=== PATIENT | male | born 1935 | race Caucasian/White ===

== ENCOUNTER → 2016-12-20 | Outpatient (CLI) | payer MEDICARE, OTHER ==
[~2016-12-20] MED LIST: ASPI81TA21 PO; CHEW500C2 PO; GLIP5TAB8 PO; LISI2.5T3 PO; METF500T PO; OMEGCAP9 PO; VITATAB73 PO
--- NOTE | 2016-12-20 13:45 | REP ---
ABDOMEN FLAT AND UPRIGHT, PA CHEST, THREE VIEWS: HISTORY: Abdominal pain. Air is present in small and large intestine. Several air fluid levels are present. There are no dilated loops of intestine. There is no pneumoperitoneum. Calcifications are present in the right upper quadrant likely representing cholelithiasis. An L4-5 laminectomy defect is present. The lungs are clear. IMPRESSION: Nonspecific bowel gas pattern. Signed by Korey De Paz MD 12/20/2016 01:49 P
== END ==
LOC: M LRY 11:24
PROVIDERS: ATTEND Family Medicine
DX: R10.9 Unspecified abdominal pain (principal); E11.9 Type 2 diabetes mellitus without complications
CPT/HCPCS: 74022; 80053; 83036; G0463

== ENCOUNTER → 2016-12-20 | Outpatient (REF) | payer MEDICARE, OTHER ==
[2016-12-20 16:47] LABS: ALBUMIN 3.6 GM/DL (3.2-5.2); ALBUMIN/GLOBULIN RATIO 1.06 (1.00-1.93); ALKALINE PHOSPHATASE 49 U/L (45-117); ALT/SGPT 29 U/L (12-78); ANION GAP 7 MEQ/L (8-16); AST/SGOT 18 U/L (15-37); BILIRUBIN,TOTAL 0.6 MG/DL (0.2-1.0); BLOOD UREA NITROGEN 20 MG/DL (7-18); CALCIUM LEVEL 8.5 MG/DL (8.8-10.2); CARBON DIOXIDE LEVEL 28 MEQ/L (21-32); CHLORIDE LEVEL 107 MEQ/L (98-107); CREATININE FOR GFR 1.16 MG/DL (0.70-1.30); GLOMERULAR FILTRATION RATE > 60.0 (>35); GLUCOSE, FASTING 82 MG/DL (83-110); POTASSIUM SERUM 4.4 MEQ/L (3.5-5.1); SODIUM LEVEL 142 MEQ/L (136-145)
== END ==
LOC: M SFHCLERA 11:12
PROVIDERS: ATTEND Family Medicine
DX: R10.9 Unspecified abdominal pain (principal); E11.9 Type 2 diabetes mellitus without complications

== ENCOUNTER → 2017-07-21 | Outpatient (REF) | payer MEDICARE, OTHER ==
[~2017-07-21] MED LIST changes: -METF500T PO; +METF500T13 PO
[2017-07-21 20:52] LABS: CALCIUM LEVEL 8.8 MG/DL (8.8-10.2); CREATININE FOR GFR 1.28 MG/DL (0.70-1.30); GLOMERULAR FILTRATION RATE 57.4 (>35); POTASSIUM SERUM 4.6 MEQ/L (3.5-5.1)
== END ==
LOC: M SFHCLERA 15:03
PROVIDERS: ATTEND Family Medicine
DX: E11.9 Type 2 diabetes mellitus without complications (principal)

== ENCOUNTER → 2017-07-21 | Outpatient (CLI) | payer MEDICARE, OTHER ==
--- NOTE | 2017-07-21 16:44 | REP ---
LEFT WRIST SERIES: Four views of the left wrist are performed. There is no acute fracture or dislocation. There is mild radiocarpal joint space narrowing with subchondral sclerosis. There are mild vascular calcifications. IMPRESSION: Mild degenerative changes. No fracture or dislocation. Signed by Sarath Joseph MD 07/22/2017 01:57 P
== END ==
LOC: M LRY 15:15
PROVIDERS: ATTEND Family Medicine
DX: M19.032 Primary osteoarthritis, left wrist (principal); E11.9 Type 2 diabetes mellitus without complications; I10 Essential (primary) hypertension
CPT/HCPCS: 73110; 80048; 82043; 83036; G0463

== ENCOUNTER → 2017-08-19 | Outpatient (REF) | payer MEDICARE, OTHER | LOC: M SMT 16:55 | PROVIDERS: ATTEND Nurse Practitioner Women's Health | DX: R31.0 Gross hematuria (principal) | CPT/HCPCS: 81001; 87086; 88108; G0463 ==

== ENCOUNTER → 2017-09-16 | Outpatient (REF) | payer MEDICARE, OTHER ==
[2017-09-16 19:07] LABS: MEAN CORPUSCULAR HEMOGLOBIN 31.4 pg (27.0-33.0); MEAN CORPUSCULAR HGB CONC 32.1 g/dl (32.0-36.5); MEAN CORPUSCULAR VOLUME 97.7 fl (80.0-96.0); PLATELET COUNT, AUTOMATED 255 10^3/uL (150-450); WHITE BLOOD COUNT 7.8 10^3/uL (4.0-10.0)
[2017-09-16 19:15] LABS: ANION GAP 8 MEQ/L (8-16); BLOOD UREA NITROGEN 19 MG/DL (7-18); CARBON DIOXIDE LEVEL 24 MEQ/L (21-32); CHLORIDE LEVEL 107 MEQ/L (98-107); CREATININE FOR GFR 1.09 MG/DL (0.70-1.30); GLOMERULAR FILTRATION RATE > 60.0 (>35); GLUCOSE, FASTING 94 MG/DL (83-110); POTASSIUM SERUM 4.4 MEQ/L (3.5-5.1); SODIUM LEVEL 139 MEQ/L (136-145)
[2017-09-16 19:18] LABS: INR 0.98
== END ==
LOC: M SFHCLERA 15:29
PROVIDERS: ATTEND Family Medicine
DX: Z01.818 Encounter for other preprocedural examination (principal); N20.0 Calculus of kidney; E11.9 Type 2 diabetes mellitus without complications; I10 Essential (primary) hypertension; Z79.82 Long term (current) use of aspirin; Z79.84 Long term (current) use of oral hypoglycemic drugs; Z79.899 Other long term (current) drug therapy

== ENCOUNTER → 2017-09-16 | Outpatient (CLI) | payer MEDICARE, OTHER ==
[~2017-09-16] MED LIST changes: +LOPR1TAB6 PO; +PERCOCET PO
--- NOTE | 2017-09-16 16:48 | REP ---
Chest two views HISTORY: Preop clearance Comparison: 07/08/2016 The lungs are clear. The heart is normal in size. The pulmonary vasculature is normal in appearance. Degenerative change is present in the thoracic spine. IMPRESSION: No acute disease. Signed by Korey De Paz MD 09/16/2017 04:39 P
== END ==
LOC: M LRY 15:35
PROVIDERS: ATTEND Family Medicine
DX: Z01.818 Encounter for other preprocedural examination (principal); N20.0 Calculus of kidney; E11.9 Type 2 diabetes mellitus without complications; I10 Essential (primary) hypertension; Z79.84 Long term (current) use of oral hypoglycemic drugs; Z79.82 Long term (current) use of aspirin; Z79.899 Other long term (current) drug therapy
CPT/HCPCS: 71020; 80048; 81001; 83036; 85027; 85610; 85730; 87086; G0463

== ENCOUNTER 2017-09-26 10:35 | Day surgery (SDC) | payer MEDICARE, OTHER ==
[~2017-09-26] VITALS: Ht 177.8 cm; Wt 93.9 kg
[~2017-09-26 10:35] MED LIST changes: -LOPR1TAB6 PO; -PERCOCET PO
[2017-09-26] MEDS ORDERED: LR 1,000 ML IV ONE (10:45)
[2017-09-26] MEDS ORDERED: MIDAZOLAM INJ 2 MG/2 ML VIAL (J2250) As Ordered ONE (16:03)
[2017-09-26] MEDS ORDERED: LIDOCAINE 2% INJ 100 MG/5 ML SDV (FOR ANES.) As Ordered ONE (16:03)
[2017-09-26] MEDS ORDERED: ROCURONIUM BROMIDE 50 MG/5 ML VIAL As Ordered ONE ×2 (16:03→18:02)
[2017-09-26] MEDS ORDERED: PROPOFOL 200 MG/20 ML VIAL As Ordered ONE ×2 (16:03→19:08)
[2017-09-26] MEDS ORDERED: fentaNYL 100 MCG/2 ML INJECTION (J3010) As Ordered ONE ×3 (16:04→19:08)
[2017-09-26] MEDS ORDERED: CONRAY-60 60% 50ML VIAL (Q9961) As Ordered ONE (16:17)
--- NOTE | 2017-09-26 16:56 | ECGEPIP ---
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 Electronically Signed On 09-26-2017 16:56:32 EST by Mo Mcnair
[2017-09-26] MEDS ORDERED: GLYCOPYRROLATE INJ 0.2 MG/ML 2 ML VIAL As Ordered ONE (17:00)
[2017-09-26] MEDS ORDERED: NEOSTIGMINE 10 MG/10 ML VIAL (J2710) As Ordered ONE (17:00)
[2017-09-26] MEDS ORDERED: ONDANSETRON 4MG/2ML VIAL (J2405) As Ordered ONE (17:00)
[2017-09-26] MEDS ORDERED: PHENYLephrine HCL 500 MCG/5 ML (100MCG/ML) SYRINGE (J2370) As Ordered ONE (17:39)
[2017-09-26] MEDS ORDERED: ePHEDrine SULFATE 25 MG/5 ML(5MG/ML) SYRINGE As Ordered ONE (17:39)
[2017-09-26] MEDS ORDERED: fentaNYL 100 MCG/2 ML INJECTION (J3010) IV PRN (20:00)
[2017-09-26] MEDS ORDERED: LR 1,000 ML IV SCH (20:00)
[2017-09-26] MEDS ORDERED: PERCOCET 5MG/325MG TAB PO PRN ×2 (20:00)
[2017-09-26] MEDS ORDERED: ONDANSETRON 4MG/2ML VIAL (J2405) IV PRN (20:00)
[2017-09-26 22:00] VITALS: BP 166/76
--- NOTE | 2017-09-27 12:05 | REP ---
Fluoroscopy time utilized for the procedure: 37 seconds. Three spot films of the abdomen and pelvis were obtained in my absentia during bilateral double J stent catheter placement. The double J stent catheters are seen bilaterally, the proximal portions of which are coiled within the region of the renal pelvis and the distal portions of which are coiled within the urinary bladder. Signed by Robel Liu DO 09/27/2017 08:53 A
[2017-09-27] MEDS ORDERED: PERCOCET PO (13:11)
--- NOTE | 2017-09-29 08:57 | RO ---
DATE OF PROCEDURE: 09/26/2017 PREPROCEDURE DIAGNOSIS: Obstructing left ureteral stones, right kidney stone. POSTPROCEDURE DIAGNOSIS: Obstructing left ureteral stones, right kidney stone. PROCEDURE: Cystoscopy, left ureteroscopy with laser lithotripsy and basket extraction of stones, bilateral retrograde pyelogram with intraoperative interpretation of images, bilateral ureteral stent placement. SURGEON: Dr. Tyrone Granados STAMP PAD MAKER: None. ANESTHESIA: General. OPERATIVE INDICATIONS: This is an 82-year-old male who was found on recent CAT scan to have two obstructing left ureteral stones, one of which was about 1 cm in size and the other one was about 2 cm in size, as well as a right kidney stone that is over 1.5 cm in size. It was recommended that he be brought to the operating room today for treatment of the stones. DESCRIPTION OF PROCEDURE: The patient was brought to the operating room, where general anesthesia was induced. Prophylactic antibiotics were infused. He was then placed in the dorsal lithotomy position and prepped and draped in the usual sterile fashion. A rigid cystoscope was then inserted into the urethral meatus and advanced into the bladder. A guidewire was advanced up the left collecting system. I then went up the left collecting system with a short semi rigid ureteroscope. In the distal left ureter a large stone was seen that was approximately 1 cm in size. The stone was then fragmented into several smaller pieces using a 200 micron laser fiber and all the pieces were removed with the basket. I then went into the more proximal ureter and the 2 cm stone was seen, which appeared to be completely obstructing the left ureter. I then utilized the 200 micron laser fiber and broke that stone into smaller pieces. Of note, this took a significant amount of time, this took at least over 2 hours. At this point, I basket extracted all the stone fragments. A retrograde pyelogram was performed and it was notable for moderate left hydronephrosis. I then withdrew the ureteroscope and no additional stone fragments were seen within the ureter. Also, no stones were seen within the left kidney. The previously placed wire was utilized to advance a #7-Niuean x 22-32 cm JJ ureteral stent up the left collecting system. Again, this took over 2-1/2 hours to breakup and remove the left sided ureteral stones. A decision was made to not work on the right sided kidney stone at this time given the amount of time it took to treat the left side. I then advanced an open-ended ureteral catheter up in the right collecting system and a retrograde pyelogram was performed. It was negative for hydronephrosis or extravasation. I then advanced the wire up the right collecting system. I then advanced a #6-Niuean x 22-32 cm JJ ureteral stent up in the right collecting system. The wire was then removed, and there were adequate curls of the stent in the right renal pelvis and in the bladder. The bladder was then emptied of all fluid, and this marked the conclusion of the procedure. The patient was then taken out of the dorsal lithotomy position, awakened from anesthesia, and transported to the recovery room in stable condition. ESTIMATED BLOOD LOSS: 5mL. COMPLICATIONS: None. SPECIMENS: Kidney stone fragments. PLAN: The patient will followup in the clinic for postoperative visit. I will discuss doing most likely a right extracorporeal shock wave lithotripsy (ESWL) for the right sided kidney stone. We will remove the left ureteral stent at that time. LIA
== END 2017-09-26 22:10 | disposition home or self-care (01) ==
LOC: M SDC 10:35
PROVIDERS: ATTEND Urology
DX: N20.2 Calculus of kidney with calculus of ureter (principal); I10 Essential (primary) hypertension; E11.9 Type 2 diabetes mellitus without complications; K44.9 Diaphragmatic hernia without obstruction or gangrene; E78.00 Pure hypercholesterolemia, unspecified; I34.9 Nonrheumatic mitral valve disorder, unspecified; Z95.1 Presence of aortocoronary bypass graft; M54.9 Dorsalgia, unspecified; G89.29 Other chronic pain; K59.09 Other constipation; M19.90 Unspecified osteoarthritis, unspecified site; Z79.899 Other long term (current) drug therapy; Z79.82 Long term (current) use of aspirin; Z79.84 Long term (current) use of oral hypoglycemic drugs
CPT/HCPCS: 52356; 74420; 82360; 88300; 93005; C1769; C1894; C2617; J0690; J2250; J2370; J2405; J2710; J3010; Q9961

== ENCOUNTER → 2017-10-02 | Outpatient (CLI) | payer MEDICARE, OTHER ==
[~2017-10-02] MED LIST changes: +PERCOCET PO
--- NOTE | 2017-10-02 10:28 | REP ---
KUB: Single view. History: Kidney stones. Comparison December 20, 2016. Comparison CT study August 26, 2017. Findings: Bilateral double pigtail ureteral stents are noted in place. Previously noted left ureteral calculus is not apparent today. There are two intrarenal calculi projecting at the right kidney, the largest of which measures 13 mm in greatest diameter. There are two opaque gallstones noted in the right upper quadrant as well. Bowel gas pattern is unremarkable. Impression: Intrarenal nephrolithiasis on the right. Cholelithiasis. Bilateral ureteral stents. Signed by Villa Sarah MD 10/02/2017 10:57 A
[2017-10-02 14:32] LABS: MEAN CORPUSCULAR HEMOGLOBIN 31.9 pg (27.0-33.0); MEAN CORPUSCULAR HGB CONC 32.4 g/dl (32.0-36.5); MEAN CORPUSCULAR VOLUME 98.4 fl (80.0-96.0); PLATELET COUNT, AUTOMATED 269 10^3/uL (150-450); RED CELL DISTRIBUTION WIDTH 14.2 % (11.5-14.5); WHITE BLOOD COUNT 6.2 10^3/uL (4.0-10.0)
[2017-10-02 14:44] LABS: ANION GAP 7 MEQ/L (8-16); BLOOD UREA NITROGEN 21 MG/DL (7-18); CALCIUM LEVEL 8.4 MG/DL (8.8-10.2); CARBON DIOXIDE LEVEL 28 MEQ/L (21-32); CHLORIDE LEVEL 105 MEQ/L (98-107); CREATININE FOR GFR 1.11 MG/DL (0.70-1.30); GLOMERULAR FILTRATION RATE > 60.0 (>35); GLUCOSE, FASTING 161 MG/DL (83-110); POTASSIUM SERUM 4.5 MEQ/L (3.5-5.1); SODIUM LEVEL 140 MEQ/L (136-145)
== END ==
LOC: M SMT 09:27
PROVIDERS: ATTEND Urology
DX: N20.0 Calculus of kidney (principal); N20.1 Calculus of ureter; Z96.0 Presence of urogenital implants

== ENCOUNTER → 2017-10-09 | Day surgery (SDC) | payer MEDICARE, OTHER ==
[~2017-10-09] VITALS: Ht 180.3 cm; Wt 91.2 kg
[~2017-10-09] MED LIST changes: +LIDOCAINE 2% 5ML JELLY UROJET As Ordered ONE; +LIDOCAINE 2% INJ 100 MG/5 ML SDV (FOR ANES.) As Ordered ONE; +LOPR1TAB6 PO; +LR 1,000 ML IV ONE; +PERCOCET 5MG/325MG TAB As Ordered ONE; +PERCOCET 5MG/325MG TAB PO PRN; +PROPOFOL 200 MG/20 ML VIAL As Ordered ONE; +fentaNYL 100 MCG/2 ML INJECTION (J3010) As Ordered ONE
--- NOTE | 2017-10-09 08:58 | REP ---
KUB: Single view. History: Kidney stone. Comparison study: October 02, 2017. Findings: Bilateral double pigtailed ureteral stents are noted. Bilateral intrarenal calculi are seen. There is a irregularly shaped calcific density 0.8 cm in diameter projecting at the lower pole of the left kidney. There are multiple right renal calculi. There are three large calcific densities measuring 1.2, 1.1, and 1.0 cm respectively superimposed on the right mid and upper pole. There is also a 0.6 cm calcification at the lower pole level. No definite ureteral stone seen. Bowel gas pattern is unremarkable. Signed by Villa Sarah MD 10/09/2017 03:53 P
[2017-10-09 11:30] VITALS: BP 115/78
--- NOTE | 2017-10-11 21:40 | RO ---
DATE OF PROCEDURE: 10/09/2017 PREPROCEDURE DIAGNOSIS: Kidney stones. POSTPROCEDURE DIAGNOSIS: Kidney stones. PROCEDURE: Right extracorporeal shock wave lithotripsy, cystoscopy with left ureteral stent removal. SURGEON: Dr. Tyrone Granados X RAY NURSE: None ANESTHESIA: MAC. OPERATIVE INDICATIONS: This is an 82-year-old male who was recently found on CT scan to have bilateral kidney stones with large left-sided kidney and ureteral stones, as well as a 1.2 cm right kidney stone. He was brought to the operating room recently for a cystoscopy with left ureteroscopy and laser lithotripsy and basket extraction of stones, and bilateral ureteral stent placement. He was brought to the operating room today to work on his right-sided stone and to remove his left ureteral stent. DESCRIPTION OF PROCEDURE: The patient was brought to the operating room and general anesthesia was induced. Prophylactic antibiotics were infused. He was then placed in the supine position and prepped and draped in the usual sterile fashion. We then entered the bladder with a flexible cystoscope and both ureteral stents were seen. The left ureteral stent was then grasped and withdrawn intact from the left side. At this point, we proceeded with the extracorporeal shock wave lithotripsy. The patient was positioned. Fluoroscopy was utilized to monitor the stone position and fragmentation throughout the procedure. Shock waves were then delivered to the 1.2 cm right kidney stone. Shock waves were delivered ungated. There were no arrhythmias. The stone did appear to fragment well. After 2500 shocks, the procedure was concluded. The patient was then awakened from anesthesia and transported to the recovery room in stable condition. Estimated blood loss: Minimal. Complications: None. Specimens: None. Plan: The patient will followup in the clinic in a few weeks with imaging prior to assess for residual stone burden. Once the stone is passed, at that point we will remove his right ureteral stent. [facility]
== END | disposition home or self-care (01) ==
LOC: M SDC 07:09
PROVIDERS: ATTEND Urology
DX: N20.0 Calculus of kidney (principal); R30.0 Dysuria; I10 Essential (primary) hypertension; E11.9 Type 2 diabetes mellitus without complications; K44.9 Diaphragmatic hernia without obstruction or gangrene; I25.10 Atherosclerotic heart disease of native coronary artery without angina pectoris; E78.00 Pure hypercholesterolemia, unspecified; I34.8 Other nonrheumatic mitral valve disorders; R13.10 Dysphagia, unspecified; K59.00 Constipation, unspecified; K21.9 Gastro-esophageal reflux disease without esophagitis; M12.9 Arthropathy, unspecified; M54.9 Dorsalgia, unspecified; G89.29 Other chronic pain; G62.9 Polyneuropathy, unspecified; Z79.899 Other long term (current) drug therapy; Z79.82 Long term (current) use of aspirin; Z96.651 Presence of right artificial knee joint; Z95.1 Presence of aortocoronary bypass graft
CPT/HCPCS: 50590; 74000; J0690; J3010

== ENCOUNTER → 2017-11-18 | Outpatient (CLI) | payer MEDICARE, OTHER | LOC: M SMT 15:04 | DX: N20.0 Calculus of kidney (principal) | CPT/HCPCS: 74018 ==

== ENCOUNTER → 2017-11-24 | Outpatient (REF) | payer MEDICARE, OTHER ==
[2017-11-24 16:49] LABS: HEMATOCRIT 25.4 % (42.0-52.0); HEMOGLOBIN 7.9 g/dl (14.0-18.0); MEAN CORPUSCULAR HEMOGLOBIN 29.5 pg (27.0-33.0); MEAN CORPUSCULAR HGB CONC 31.1 g/dl (32.0-36.5); MEAN CORPUSCULAR VOLUME 94.8 fl (80.0-96.0); PLATELET COUNT, AUTOMATED 444 10^3/uL (150-450); RED BLOOD COUNT 2.68 10^6/uL (4.30-6.10); RED CELL DISTRIBUTION WIDTH 15.5 % (11.5-14.5); WHITE BLOOD COUNT 7.9 10^3/uL (4.0-10.0)
[2017-11-24 17:12] LABS: ANION GAP 7 MEQ/L (8-16); BLOOD UREA NITROGEN 27 MG/DL (7-18); CALCIUM LEVEL 8.7 MG/DL (8.8-10.2); CARBON DIOXIDE LEVEL 28 MEQ/L (21-32); CHLORIDE LEVEL 104 MEQ/L (98-107); CREATININE FOR GFR 1.28 MG/DL (0.70-1.30); GLOMERULAR FILTRATION RATE 57.4 (>35); GLUCOSE, FASTING 97 MG/DL (70-100); POTASSIUM SERUM 4.7 MEQ/L (3.5-5.1); SODIUM LEVEL 139 MEQ/L (136-145)
== END ==
LOC: M LABSMT 11:54
DX: N20.0 Calculus of kidney (principal); Z01.818 Encounter for other preprocedural examination; N39.0 Urinary tract infection, site not specified
CPT/HCPCS: 80048

== ENCOUNTER → 2017-11-27 | Outpatient (REF) | payer MEDICARE, OTHER ==
[2017-11-27 18:44] LABS: BASO % 0.5 % (0.0-1.0); EOS # 0.3 10^3/uL (0.0-0.50); EOS % 3.6 % (0.0-3.0); HEMATOCRIT 27.3 % (42.0-52.0); HEMOGLOBIN 8.4 g/dl (14.0-18.0); IMMATURE GRANULOCYTE % 0.5 % (0-3.0); LYMPH # 1.8 10^3/uL (1.5-4.5); LYMPH % 22.6 % (24.0-44.0); MEAN CORPUSCULAR HEMOGLOBIN 29.7 pg (27.0-33.0); MEAN CORPUSCULAR HGB CONC 30.8 g/dl (32.0-36.5); MEAN CORPUSCULAR VOLUME 96.5 fl (80.0-96.0); MONO # 0.6 10^3/uL (0.0-0.8); MONO % 7.7 % (0.0-5.0); NEUTROPHILS # 5.2 10^3/uL (1.8-7.7); NEUTROPHILS % 65.1 % (36.0-66.0); PLATELET COUNT, AUTOMATED 397 10^3/uL (150-450); RED BLOOD COUNT 2.83 10^6/uL (4.30-6.10); RED CELL DISTRIBUTION WIDTH 16.2 % (11.5-14.5)
[2017-11-27 18:52] LABS: APPEARANCE, URINE CLOUDY (CLEAR); BACTERIA, URINE AUTO NEGATIVE (NEGATIVE); BILIRUBIN, URINE AUTO NEGATIVE (NEGATIVE); BLOOD, URINE BLOOD 3+ (NEGATIVE); COLOR, URINE YELLOW (YELLOW); GLUCOSE, URINE (UA) AUTO NEGATIVE (NEGATIVE); KETONE, URINE AUTO NEGATIVE (NEGATIVE); LEUKOCYTE ESTERASE, URINE AUTO 2+ (NEGATIVE); MUCUS, URINE SMALL (NEGATIVE); NITRITE, URINE AUTO NEGATIVE (NEGATIVE); PROTEIN, URINE AUTO 2+ mg/dL (NEGATIVE); RBC, URINE AUTO TNTC /HPF (0-3); SPECIFIC GRAVITY URINE AUTO 1.014 (1.002-1.035); SQUAMOUS EPITHELIAL CELL UR AU 0 /HPF (0-6); UROBILINOGEN, URINE AUTO 0.2 mg/dL (0.0-2.0); WBC, URINE AUTO 25 /HPF (0-3)
[2017-11-27 18:57] LABS: INR 1.05; PROTHROMBIN TIME 13.9 SECONDS (12.4-14.5)
[2017-11-27 20:25] LABS: ALBUMIN 2.9 GM/DL (3.2-5.2); ALBUMIN/GLOBULIN RATIO 0.69 (1.00-1.93); ALKALINE PHOSPHATASE 57 U/L (45-117); ALT/SGPT 17 U/L (12-78); ANION GAP 9 MEQ/L (8-16); AST/SGOT 12 U/L (7-37); BILIRUBIN,TOTAL 0.4 MG/DL (0.2-1.0); BLOOD UREA NITROGEN 24 MG/DL (7-18); CALCIUM LEVEL 8.4 MG/DL (8.8-10.2); CARBON DIOXIDE LEVEL 26 MEQ/L (21-32); CHLORIDE LEVEL 104 MEQ/L (98-107); CREATININE FOR GFR 1.37 MG/DL (0.70-1.30); GLOMERULAR FILTRATION RATE 53.1 (>35); GLUCOSE, FASTING 100 MG/DL (70-100); POTASSIUM SERUM 4.6 MEQ/L (3.5-5.1); SODIUM LEVEL 139 MEQ/L (136-145); TOTAL PROTEIN 7.1 GM/DL (6.4-8.2)
== END ==
LOC: M SFHCLERA 11:26
DX: R19.5 Other fecal abnormalities (principal); D50.0 Iron deficiency anemia secondary to blood loss (chronic); Z95.1 Presence of aortocoronary bypass graft
CPT/HCPCS: 80053

== ENCOUNTER 2017-11-28 11:00 | Outpatient (CLI) | payer MEDICARE, OTHER ==
[2017-11-28] MEDS: FUROSEMIDE 20 MG/2 ML VIAL (J1940) IV (15:33)
[2017-11-28 15:47] LABS: IMMEDIATE SPIN CROSSMATCH 1 2
== END 2017-11-28 18:55 | disposition home or self-care (01) ==
LOC: M OPCLI4PV 11:00 → M MSPAV 11:21 → M OPCLI4PV 18:55
PROVIDERS: Pediatrics
DX: D50.0 Iron deficiency anemia secondary to blood loss (chronic) (principal); Z79.899 Other long term (current) drug therapy
CPT/HCPCS: 36430

== ENCOUNTER → 2017-12-01 | Outpatient (REF) | payer MEDICARE, OTHER ==
[2017-12-01 12:53] LABS: HEMATOCRIT 31.5 % (42.0-52.0); HEMOGLOBIN 9.9 g/dl (14.0-18.0)
== END ==
LOC: M SFHCLERA 10:23
DX: D50.0 Iron deficiency anemia secondary to blood loss (chronic) (principal)
CPT/HCPCS: 85014

== ENCOUNTER → 2017-12-08 | Outpatient (REF) | payer MEDICARE, OTHER ==
[2017-12-08 18:34] LABS: ANION GAP 9 MEQ/L (8-16); BLOOD UREA NITROGEN 22 MG/DL (7-18); CALCIUM LEVEL 8.7 MG/DL (8.8-10.2); CARBON DIOXIDE LEVEL 27 MEQ/L (21-32); CHLORIDE LEVEL 105 MEQ/L (98-107); CREATININE FOR GFR 1.23 MG/DL (0.70-1.30); GLOMERULAR FILTRATION RATE > 60.0 (>35); GLUCOSE, FASTING 150 MG/DL (70-100); POTASSIUM SERUM 4.4 MEQ/L (3.5-5.1); SODIUM LEVEL 141 MEQ/L (136-145)
[2017-12-08 18:55] LABS: HEMATOCRIT 34.1 % (42.0-52.0); HEMOGLOBIN 10.3 g/dl (14.0-18.0); MEAN CORPUSCULAR HEMOGLOBIN 29.3 pg (27.0-33.0); MEAN CORPUSCULAR HGB CONC 30.2 g/dl (32.0-36.5); MEAN CORPUSCULAR VOLUME 97.2 fl (80.0-96.0); PLATELET COUNT, AUTOMATED 325 10^3/uL (150-450); RED BLOOD COUNT 3.51 10^6/uL (4.30-6.10); RED CELL DISTRIBUTION WIDTH 16.7 % (11.5-14.5); WHITE BLOOD COUNT 6.5 10^3/uL (4.0-10.0)
== END ==
LOC: M SFHCLERA 10:42
DX: D50.0 Iron deficiency anemia secondary to blood loss (chronic) (principal)
CPT/HCPCS: 80048

== ENCOUNTER 2017-12-12 10:45 | Day surgery (SDC) | payer MEDICARE, OTHER ==
[2017-12-12 11:18] LABS: BEDSIDE GLUCOSE 152 MG/DL (83-110)
[2017-12-12] MEDS: LR 1,000 ML IV (12:47)
[2017-12-12] MEDS: METOPROLOL TART 25 MG TABLET PO (13:57)
[2017-12-12] MEDS ORDERED: MIDAZOLAM INJ 2 MG/2 ML VIAL (J2250) As Ordered (14:33)
[2017-12-12] MEDS ORDERED: LIDOCAINE 2% INJ 100 MG/5 ML SDV (FOR ANES.) As Ordered (14:33)
[2017-12-12] MEDS ORDERED: fentaNYL 100 MCG/2 ML INJECTION (J3010) As Ordered (14:33)
[2017-12-12] MEDS ORDERED: PROPOFOL 200 MG/20 ML VIAL As Ordered (14:33)
[2017-12-12] MEDS: CONRAY-60 60% 50ML VIAL (Q9961) As Ordered (14:43)
[2017-12-12] MEDS ORDERED: LR 1,000 ML IV (15:30)
[2017-12-12] MEDS ORDERED: ONDANSETRON 4MG/2ML VIAL (J2405) IV (15:30)
[2017-12-12] MEDS ORDERED: PERCOCET 5MG/325MG TAB PO (15:30)
[2017-12-12] MEDS ORDERED: fentaNYL 100 MCG/2 ML INJECTION (J3010) IV (15:30)
== END 2017-12-12 16:50 | disposition home or self-care (01) ==
LOC: M SDC 10:45
DX: N20.0 Calculus of kidney (principal); I10 Essential (primary) hypertension; E11.9 Type 2 diabetes mellitus without complications; K44.9 Diaphragmatic hernia without obstruction or gangrene; I25.10 Atherosclerotic heart disease of native coronary artery without angina pectoris; E78.00 Pure hypercholesterolemia, unspecified; I34.9 Nonrheumatic mitral valve disorder, unspecified; K59.00 Constipation, unspecified; M12.9 Arthropathy, unspecified; M54.9 Dorsalgia, unspecified; G89.29 Other chronic pain; G62.9 Polyneuropathy, unspecified; Z79.899 Other long term (current) drug therapy; Z79.82 Long term (current) use of aspirin; Z79.84 Long term (current) use of oral hypoglycemic drugs; Z87.19 Personal history of other diseases of the digestive system; Z96.651 Presence of right artificial knee joint
CPT/HCPCS: 52005

== ENCOUNTER 2017-12-22 12:44 | Outpatient (RCR) | payer MEDICARE, OTHER | END 2018-01-17 | LOC: M OT 12:44 | DX: M62.81 Muscle weakness (generalized) (principal) | CPT/HCPCS: 97110 ==

== ENCOUNTER 2018-01-21 12:30 | Outpatient (RCR) | payer MEDICARE, OTHER | END 2018-02-16 | LOC: M OT 12:30 | DX: M62.81 Muscle weakness (generalized) (principal) | CPT/HCPCS: 97110 ==

== ENCOUNTER → 2018-03-05 | Outpatient (REF) | payer MEDICARE, OTHER ==
[2018-03-05 16:33] LABS: BASO % 0.7 % (0.0-1.0); EOS # 0.2 10^3/uL (0.0-0.50); EOS % 3.3 % (0.0-3.0); HEMATOCRIT 36.6 % (42.0-52.0); HEMOGLOBIN 11.8 g/dl (13.5-17.5); IMMATURE GRANULOCYTE % 0.3 % (0-3.0); LYMPH # 1.7 10^3/uL (1.5-4.5); LYMPH % 27.8 % (24.0-44.0); MEAN CORPUSCULAR HEMOGLOBIN 31.1 pg (27.0-33.0); MEAN CORPUSCULAR HGB CONC 32.2 g/dl (32.0-36.5); MEAN CORPUSCULAR VOLUME 96.3 fl (80.0-96.0); MONO # 0.6 10^3/uL (0.0-0.8); MONO % 10.3 % (0.0-5.0); NEUTROPHILS # 3.5 10^3/uL (1.8-7.7); NEUTROPHILS % 57.6 % (36.0-66.0); PLATELET COUNT, AUTOMATED 248 10^3/uL (150-450); RED CELL DISTRIBUTION WIDTH 14.8 % (11.5-14.5); WHITE BLOOD COUNT 6.1 10^3/uL (4.0-10.0)
[2018-03-05 16:57] LABS: ANION GAP 6 MEQ/L (8-16); BLOOD UREA NITROGEN 28 MG/DL (7-18); CALCIUM LEVEL 8.6 MG/DL (8.8-10.2); CARBON DIOXIDE LEVEL 27 MEQ/L (21-32); CHLORIDE LEVEL 107 MEQ/L (98-107); CREATININE FOR GFR 1.23 MG/DL (0.70-1.30); GLUCOSE, FASTING 179 MG/DL (70-100); POTASSIUM SERUM 4.8 MEQ/L (3.5-5.1); SODIUM LEVEL 140 MEQ/L (136-145)
[2018-03-05 17:03] LABS: ESTIMATED AVERAGE GLUCOSE 166 MG/DL (60-110); HEMOGLOBIN A1c 7.4 %
[2018-03-05 17:14] LABS: MALB URINE SIEMENS 75.3 MG/L; MAU/CREAT RATIO 86.5 MCG/MG (0.0-30.0)
== END ==
LOC: M SFHCLERA 11:06
DX: D64.9 Anemia, unspecified (principal); E11.9 Type 2 diabetes mellitus without complications
CPT/HCPCS: 83036

== ENCOUNTER → 2018-04-30 | Outpatient (CLI) | payer MEDICARE | LOC: M LRY 11:52 | DX: M51.36 Other intervertebral disc degeneration, lumbar region (principal); M25.78 Osteophyte, vertebrae; M47.27 Other spondylosis with radiculopathy, lumbosacral region; I48.4 Atypical atrial flutter | CPT/HCPCS: 71046; 93005 ==

== ENCOUNTER → 2018-09-03 | Outpatient (REF) | payer MEDICARE, OTHER | LOC: M SFHCLERA 12:31 | DX: L57.0 Actinic keratosis (principal) | CPT/HCPCS: 88305 ==

== ENCOUNTER → 2018-11-23 | Outpatient (REF) | payer MEDICARE, OTHER ==
[~2018-11-23] MED LIST changes: -LIDOCAINE 2% 5ML JELLY UROJET As Ordered ONE; -LIDOCAINE 2% INJ 100 MG/5 ML SDV (FOR ANES.) As Ordered ONE; -LISI2.5T3 PO; +LISI2.5T5 PO; -LR 1,000 ML IV ONE; -PERCOCET 5MG/325MG TAB As Ordered ONE; -PERCOCET 5MG/325MG TAB PO PRN; -PROPOFOL 200 MG/20 ML VIAL As Ordered ONE; +VITA100067 PO; -fentaNYL 100 MCG/2 ML INJECTION (J3010) As Ordered ONE
[2018-11-23 12:07] LABS: HEMOGLOBIN A1c 7.7 %
[2018-11-23 12:16] LABS: CALCIUM LEVEL 9.3 MG/DL (8.8-10.2); CHOLESTEROL RISK RATIO 2.695 (<5); CREATININE FOR GFR 1.32 MG/DL (0.70-1.30); GLOMERULAR FILTRATION RATE 55.3 (>35); POTASSIUM SERUM 4.6 MEQ/L (3.5-5.1)
[2018-11-23 12:31] LABS: MAU/CREAT RATIO 112.3 MCG/MG (0.0-30.0)
== END ==
LOC: M SFHCLERA 08:58
PROVIDERS: ATTEND Family Medicine
DX: E11.21 Type 2 diabetes mellitus with diabetic nephropathy (principal)

== ENCOUNTER → 2019-03-26 | Outpatient (REF) | payer MEDICARE, OTHER ==
[~2019-03-26] MED LIST changes: +LISI-1046 PO; -LISI2.5T5 PO
== END ==
LOC: M SFHCPLAZ 17:27
PROVIDERS: ATTEND Dermatology
DX: L57.0 Actinic keratosis (principal)

== ENCOUNTER → 2019-04-14 | Outpatient (CLI) | payer MEDICARE, OTHER ==
--- NOTE | 2019-04-14 11:55 | REP ---
Clinical: Cough . Comparison: 04/30/2018 . Technique: PA and lateral. Findings: Evidence of prior sternotomy and CABG. The mediastinum and cardiac silhouette are within normal limits and stable. The lung jauregui demonstrate chronic interstitial changes without acute consolidation, effusion, or pneumothorax. The skeletal structures are intact and normal. Impression: 1. No acute cardiopulmonary process. Electronically Signed by Billy Ruiz MD 04/14/2019 11:46 A
== END ==
LOC: M LRY 11:28
PROVIDERS: ATTEND Family Medicine
DX: R05 Cough (principal)
CPT/HCPCS: 71046; G0463

== ENCOUNTER → 2019-04-19 | Outpatient (CLI) | payer MEDICARE, OTHER ==
--- NOTE | 2019-04-19 14:25 | REP ---
REASON FOR EXAM: Pyrexia and left lung base rales. COMPARISON: 04/14/2019. There are a few discoid and curvilinear left basilar opacities. These have developed since the last exam. The pleural angles remain sharp and the heart is not enlarged. Note is again made of previous median sternotomy. IMPRESSION: Atelectatic change versus developing left lower lobe pneumonia, correlate clinically. Electronically Signed by Robel Liu DO 04/19/2019 03:29 P
== END ==
LOC: M LRY 13:44
PROVIDERS: ATTEND Physician Assistant
DX: R91.8 Other nonspecific abnormal finding of lung field (principal); R50.9 Fever, unspecified
CPT/HCPCS: 71046; G0463

== ENCOUNTER → 2019-06-15 | Outpatient (REF) | payer MEDICARE, OTHER ==
[2019-06-15 16:49] LABS: BASO % 0.7 % (0.0-1.0); EOS # 0.3 10^3/uL (0.0-0.50); EOS % 4.7 % (0.0-3.0); HEMATOCRIT 35.7 % (42.0-52.0); HEMOGLOBIN 11.3 g/dl (13.5-17.5); LYMPH # 1.6 10^3/uL (1.5-4.5); LYMPH % 26.2 % (24.0-44.0); MEAN CORPUSCULAR HGB CONC 31.7 g/dl (32.0-36.5); MEAN CORPUSCULAR VOLUME 101.1 fl (80.0-96.0); MONO # 0.5 10^3/uL (0.0-0.8); MONO % 8.8 % (0.0-5.0); NEUTROPHILS # 3.5 10^3/uL (1.8-7.7); NEUTROPHILS % 58.9 % (36.0-66.0); PLATELET COUNT, AUTOMATED 295 10^3/uL (150-450); RED BLOOD COUNT 3.53 10^6/uL (4.30-6.10)
[2019-06-15 16:58] LABS: CALCIUM LEVEL 9.2 MG/DL (8.8-10.2); CREATININE FOR GFR 1.3 MG/DL (0.70-1.30); GLOMERULAR FILTRATION RATE 56.1 (>35)
== END ==
LOC: M SFHCLERA 12:05
PROVIDERS: ATTEND Family Medicine
DX: E11.21 Type 2 diabetes mellitus with diabetic nephropathy (principal)
CPT/HCPCS: 80048; 83036; 85025; G0463

== ENCOUNTER → 2019-06-24 | Outpatient (REF) | payer MEDICARE, OTHER ==
[2019-06-24 20:37] LABS: FOLATE > 24.0 NG/ML; VITAMIN B12 LEVEL 385 PG/ML
== END ==
LOC: M SFHCLERA 14:55
PROVIDERS: ATTEND Family Medicine
DX: D75.89 Other specified diseases of blood and blood-forming organs (principal)

== ENCOUNTER → 2019-07-29 | Outpatient (CLI) | payer MEDICARE, OTHER ==
--- NOTE | 2019-07-29 14:01 | REP ---
Left ribs for views: There are fractures of the left eighth and ninth ribs, however, were also present on an abdomen CT of 08/26/2017 indicating they are old rib fractures. No acute rib fractures are identified. PA chest two views: There is no pneumothorax, hemothorax or pulmonary contusion. There is a fracture of the right eighth rib posterolaterally. This was not present on a comparison PA and lateral chest dated 04/19/2019. There are sternotomy wires. Cardiac size normal. The liyah, mediastinum, skeletal structures are otherwise unremarkable. Impression: Right eighth rib fracture. No pneumothorax, hemothorax or pulmonary contusion. Electronically Signed by Sarath Cruz MD 07/29/2019 01:52 P
== END ==
LOC: M LRY 13:21
PROVIDERS: ATTEND Physician Assistant
DX: S22.42XA Multiple fractures of ribs, left side, initial encounter for closed fracture (principal); R07.89 Other chest pain; W19.XXXA Unspecified fall, initial encounter; Y92.9 Unspecified place or not applicable; R07.81 Pleurodynia
CPT/HCPCS: 71101; G0463

== ENCOUNTER → 2019-11-02 | Outpatient (CLI) | payer MEDICARE, OTHER ==
--- NOTE | 2019-11-02 10:56 | REP ---
INDICATION: Pain PROCEDURE: AP and lateral views of the thoracic spine COMPARISON STUDIES: No prior similar FINDINGS: AP view demonstrates sternal wires. Lungs appear clear. Osteophytic spurring and disc space narrowing evident. Vertebral heights appear well preserved. No malalignments CONCLUSION: No acute findings. Degenerative changes. Electronically Signed by Pa Caldwell MD 11/02/2019 10:47 A
--- NOTE | 2019-11-02 11:01 | REP ---
INDICATION: Pain PROCEDURE: Plain films of the lumbar spine includes AP, lateral and oblique images. COMPARISON STUDIES: CT of the lumbar spine 10/19/2014 FINDINGS: There is no evidence of fracture or malalignment. There is extensive degenerative change with anterior osteophytic spurring and disc space narrowing. Degenerative change appears more progressed at the L4-5 level with vacuum phenomena. Degenerative changes are also significant at the L5 S1 level. Small calcific densities in the area of the gallbladder likely represent small gallstones. CONCLUSION: No acute findings. Degenerative changes. Electronically Signed by Pa Caldwell MD 11/02/2019 10:52 A
== END ==
LOC: M LRY 10:01
PROVIDERS: ATTEND Family Medicine
DX: M51.36 Other intervertebral disc degeneration, lumbar region (principal); M51.37 Other intervertebral disc degeneration, lumbosacral region; M54.5 Low back pain; D64.9 Anemia, unspecified; E11.21 Type 2 diabetes mellitus with diabetic nephropathy
CPT/HCPCS: 72070; 72110; 80048; 82043; 83036; 85025; G0463

== ENCOUNTER → 2019-11-02 | Outpatient (REF) | payer MEDICARE, OTHER ==
[2019-11-02 11:57] LABS: BASO # 0.1 10^3/uL (0.0-0.2); BASO % 0.9 % (0.0-1.0); EOS # 0.2 10^3/uL (0.0-0.5); EOS % 3.3 % (0.0-3.0); HEMATOCRIT 36.5 % (42.0-52.0); HEMOGLOBIN 11.4 g/dl (13.5-17.5); LYMPH # 1.3 10^3/uL (1.5-5.0); LYMPH % 23.4 % (24.0-44.0); MEAN CORPUSCULAR HEMOGLOBIN 31.1 pg (27.0-33.0); MEAN CORPUSCULAR HGB CONC 31.2 g/dl (32.0-36.5); MEAN CORPUSCULAR VOLUME 99.7 fl (80.0-96.0); MONO # 0.5 10^3/uL (0.0-0.8); MONO % 8.8 % (0.0-5.0); NEUTROPHILS # 3.4 10^3/uL (1.5-8.5); NEUTROPHILS % 62.7 % (36.0-66.0); PLATELET COUNT, AUTOMATED 251 10^3/uL (150-450); RED BLOOD COUNT 3.66 10^6/uL (4.30-6.10); WHITE BLOOD COUNT 5.5 10^3/uL (4.0-10.0)
[2019-11-02 12:25] LABS: CALCIUM LEVEL 8.6 MG/DL (8.8-10.2); CREATININE FOR GFR 1.54 MG/DL (0.70-1.30); GLOMERULAR FILTRATION RATE 46.2 (>35); POTASSIUM SERUM 4.7 MEQ/L (3.5-5.1)
[2019-11-02 12:36] LABS: MALB URINE SIEMENS 76.2 MG/L; MAU/CREAT RATIO 55.6 MCG/MG (0.0-30.0)
[2019-11-02 14:40] LABS: HEMOGLOBIN A1c 7.3 %
== END ==
LOC: M SFHCLERA 09:47
PROVIDERS: ATTEND Family Medicine
DX: D64.9 Anemia, unspecified (principal); E11.21 Type 2 diabetes mellitus with diabetic nephropathy

== ENCOUNTER → 2020-03-16 | Outpatient (REF) | payer MEDICARE, OTHER ==
[~2020-03-16] MED LIST changes: +ASPI81TAEC PO; +ATOR40TA75 PO; +CALC-362 PO; -CHEW500C2 PO; +CYMB1CAP5 PO; +DOXY100T PO; +ELIQ5TAB PO; +FERR325T18 PO; +GABA-1171 PO; +GABA-282; +GLIP5TAB8; -LISI-1046 PO; +LISI-898; +LISI10TA22 PO; +LISI2.5T2 PO; +MAGN50TA PO; +METO1TAB87 PO; +METO50TA7 PO; +PANT40TA29 PO; +SUCR1TA PO; +TAMS1CAP17 PO; +TRAD5TAB; +TRAM50TA2 PO
[2020-03-16 18:36] LABS: BASO % 0.3 % (0.0-1.0); EOS # 0.1 10^3/uL (0.0-0.5); EOS % 2.1 % (0.0-3.0); HEMATOCRIT 32.4 % (42.0-52.0); LYMPH # 1.5 10^3/uL (1.5-5.0); LYMPH % 25.3 % (24.0-44.0); MEAN CORPUSCULAR HEMOGLOBIN 30.5 pg (27.0-33.0); MEAN CORPUSCULAR HGB CONC 30.9 g/dl (32.0-36.5); MEAN CORPUSCULAR VOLUME 98.8 fl (80.0-96.0); MONO # 0.6 10^3/uL (0.0-0.8); NEUTROPHILS # 3.4 10^3/uL (1.5-8.5); NEUTROPHILS % 58.5 % (36.0-66.0); PLATELET COUNT, AUTOMATED 241 10^3/uL (150-450); RED BLOOD COUNT 3.28 10^6/uL (4.30-6.10); WHITE BLOOD COUNT 5.7 10^3/uL (4.0-10.0)
[2020-03-16 18:47] LABS: BLOOD UREA NITROGEN 23 MG/DL (7-18); CALCIUM LEVEL 8.7 MG/DL (8.8-10.2); CARBON DIOXIDE LEVEL 25 MEQ/L (21-32); CHLORIDE LEVEL 107 MEQ/L (98-107); CREATININE FOR GFR 1.17 MG/DL (0.70-1.30); GLOMERULAR FILTRATION RATE > 60.0 (>35); GLUCOSE, FASTING 90 MG/DL (70-100); POTASSIUM SERUM 4.7 MEQ/L (3.5-5.1); SODIUM LEVEL 140 MEQ/L (136-145)
[2020-03-16 20:02] LABS: HEMOGLOBIN A1c 7.3 %
== END ==
LOC: M SFHCLERA 15:38
PROVIDERS: ATTEND Family Medicine
DX: L03.90 Cellulitis, unspecified (principal); E11.21 Type 2 diabetes mellitus with diabetic nephropathy
CPT/HCPCS: 36415; 80048; 83036; 85025; G0463

== ENCOUNTER → 2020-03-31 | Outpatient (REF) | payer MEDICARE, OTHER ==
[~2020-03-31] MED LIST changes: -ASPI81TAEC PO; -ATOR40TA75 PO; -CALC-362 PO; +CHEW500C2 PO; -CYMB1CAP5 PO; -DOXY100T PO; -ELIQ5TAB PO; -FERR325T18 PO; -GABA-1171 PO; -GABA-282; +GABA-843; -GLIP5TAB8; +LISI-542; -LISI-898; -LISI10TA22 PO; -MAGN50TA PO; -METO1TAB87 PO; -METO50TA7 PO; -PANT40TA29 PO; -SUCR1TA PO; -TAMS1CAP17 PO; -TRAD5TAB; -TRAM50TA2 PO
[2020-03-31 18:53] LABS: BLOOD UREA NITROGEN 30 MG/DL (7-18); CALCIUM LEVEL 8.3 MG/DL (8.8-10.2); CARBON DIOXIDE LEVEL 24 MEQ/L (21-32); CHLORIDE LEVEL 109 MEQ/L (98-107); CREATININE FOR GFR 1.14 MG/DL (0.70-1.30); GLOMERULAR FILTRATION RATE > 60.0 (>35); GLUCOSE, FASTING 89 MG/DL (70-100); POTASSIUM SERUM 4.9 MEQ/L (3.5-5.1); SODIUM LEVEL 138 MEQ/L (136-145)
== END ==
LOC: M SFHCLERA 15:56
PROVIDERS: ATTEND Family Medicine
DX: I10 Essential (primary) hypertension (principal)

== ENCOUNTER 2020-04-01 21:45 | Emergency (ER) | payer MEDICARE, OTHER ==
[~2020-04-01] VITALS: Ht 180.3 cm; Wt 102.3 kg
[~2020-04-01 21:45] MED LIST changes: -GABA-843; -LISI-542
[2020-04-01] MEDS ORDERED: GABA-843 (22:33)
[2020-04-01] MEDS ORDERED: LISI-542 (22:33)
[2020-04-01] MEDS ORDERED: NORCO, ANEXSIA 5/325MG TABLET (HYDROcodone/ACETAMINOPHEN) PO ONE (23:30)
--- NOTE | 2020-04-01 23:57 | REPVR ---
PROCEDURE INFORMATION: Exam: US Duplex Right Lower Extremity Veins, Limited Exam date and time: 04/01/2020 11:48 PM Age: 85 years old Clinical indication: Pain; Leg, lower; Right; Additional info: R/O dvt. Swelling inc pain TECHNIQUE: Imaging protocol: Real-time Duplex ultrasound of the Right Lower Extremity with 2-D welch scale, color Doppler flow and spectral waveform analysis with image documentation. Limited exam was focused on the right lower extremity veins. COMPARISON: No relevant prior studies available. FINDINGS: Right deep veins: Unremarkable. The common femoral, femoral, proximal profunda femoral and popliteal veins are patent without thrombus. Normal Doppler waveforms. Normal compressibility and/or augmentation response. Right superficial veins: Unremarkable. Saphenofemoral junction is patent without thrombus. Right popliteal artery: Incidental note of occluded right popliteal artery with suggestion of minimal distal reconstitution. Soft tissues: Right lower extremity subcutaneous edema. IMPRESSION: 1. Negative right lower extremity venous duplex exam without evidence of deep venous thrombosis. 2. Incidental note of occluded right popliteal artery with suggestion of minimal distal reconstitution. Electronically signed by: Connor Díaz On 04/01/2020 23:57:16 PM
[2020-04-02 00:01] LABS: INR 1.01
[2020-04-02 00:04] LABS: ALBUMIN 3.4 GM/DL (3.2-5.2); ALT/SGPT 33 U/L (12-78); BILIRUBIN,DIRECT 0.1 MG/DL (0.0-0.2); BILIRUBIN,TOTAL 0.4 MG/DL (0.2-1.0); BLOOD UREA NITROGEN 28 MG/DL (7-18); C REACTIVE PROTEIN QUANTITATIV < 0.30 MG/DL (0.00-0.30); CALCIUM LEVEL 8.2 MG/DL (8.8-10.2); CARBON DIOXIDE LEVEL 22 MEQ/L (21-32); CHLORIDE LEVEL 111 MEQ/L (98-107); CREATININE FOR GFR 1.12 MG/DL (0.70-1.30); GLOMERULAR FILTRATION RATE > 60.0 (>35); GLUCOSE, FASTING 124 MG/DL (70-100); POTASSIUM SERUM 4.2 MEQ/L (3.5-5.1); SODIUM LEVEL 139 MEQ/L (136-145); TOTAL PROTEIN 6.9 GM/DL (6.4-8.2)
[2020-04-02 00:07] LABS: BASO % 0.7 % (0.0-1.0); EOS # 0.1 10^3/uL (0.0-0.5); EOS % 2.1 % (0.0-3.0); HEMATOCRIT 32.7 % (42.0-52.0); HEMOGLOBIN 10.4 g/dl (13.5-17.5); LYMPH # 1.8 10^3/uL (1.5-5.0); LYMPH % 31.7 % (24.0-44.0); MEAN CORPUSCULAR HEMOGLOBIN 31.2 pg (27.0-33.0); MEAN CORPUSCULAR HGB CONC 31.8 g/dl (32.0-36.5); MEAN CORPUSCULAR VOLUME 98.2 fl (80.0-96.0); MONO # 0.5 10^3/uL (0.0-0.8); MONO % 9.1 % (0.0-5.0); NEUTROPHILS # 3.2 10^3/uL (1.5-8.5); NEUTROPHILS % 55.3 % (36.0-66.0); PLATELET COUNT, AUTOMATED 240 10^3/uL (150-450); RED BLOOD COUNT 3.33 10^6/uL (4.30-6.10); WHITE BLOOD COUNT 5.7 10^3/uL (4.0-10.0)
[2020-04-02 00:35] LABS: PARTIAL THROMBOPLASTIN TIME 29.9 SECONDS (25.0-38.4)
[2020-04-02 00:55] LABS: ERYTHROCYTE SEDIMENTATION RATE 24 mm/hr (0-20)
[2020-04-02] MEDS ORDERED: ISOVUE-370 76% 100ML VIAL As Ordered ONE (01:25)
[2020-04-02] MEDS ORDERED: MORPHINE 4 MG/ML 1ML VIAL/SYRINGE (J2270) IV ONE (01:30)
--- NOTE | 2020-04-02 02:53 | REPVR ---
PROCEDURE INFORMATION: Exam: CTA Right Lower Extremity With Contrast Exam date and time: 04/02/2020 2:01 AM Age: 85 years old Clinical indication: Other: Decreased pulse; Additional info: Decreased pulse/cold/mottled right lower ext TECHNIQUE: Imaging protocol: CTA images of the Right lower extremity with intravenous contrast using CT angiography protocol. 3D rendering: MIP and/or 3D reconstructed images were created by the technologist. Radiation optimization: All CT scans at this facility use at least one of these dose optimization techniques: automated exposure control; mA and/or kV adjustment per patient size (includes targeted exams where dose is matched to clinical indication); or iterative reconstruction. Contrast material: ISOVUE 370; Contrast volume: 100 ml; Contrast route: IV; COMPARISON: No relevant prior studies available. FINDINGS: Right iliac arteries: There is tortuosity of the right iliac arteries with no significant stenosis. Right femoral/popliteal arteries: The right common femoral artery is patent. The right profunda artery and branches are normal. The right superficial femoral artery demonstrates atherosclerotic plaque with irregularity and occlusion of the distal superficial femoral artery with collaterals given off at the site of occlusion. The right popliteal artery is occluded. Right infrapopliteal arteries: In the right calf, definite reconstitution is not identified. There is atherosclerotic calcification and density which may reflect slight segmental reconstitution although this is interspersed with areas of nonvisualization suggesting this reflects atherosclerotic plaque rather than any real reconstitution. Bones/joints: A right knee prosthesis is in position with beam hardening artifact obscuring this level. Soft tissues: Small bilateral fat filled inguinal hernias. IMPRESSION: 1. Occlusion of the distal right superficial femoral artery with small collaterals given off at the point of obstruction or occlusion. No definite reconstitution is noted within the calf. 2. Small bilateral inguinal hernias. Electronically signed by: Connor Díaz On 04/02/2020 02:52:29 AM
[2020-04-02] MEDS ORDERED: HEPARIN DRIP 25,000 UNITS in IV 1 EA IV SCH (06:20)
[2020-04-02] MEDS ORDERED: HEPARIN 25,000 UNITS/250 ML D5W BAG (100 UNITS/ML) (J1644 PER 1000UNITS) As Ordered ONE (06:23)
[2020-04-02] MEDS ORDERED: HEPARIN SOD (PORCINE) 5000UNITS/ML VIAL (J1644 PER 1000UNITS) IV ONE (06:30)
[2020-04-02] MEDS ORDERED: lisinopriL 5 MG TAB PO ONE (06:45)
[2020-04-02 06:51] VITALS: BP 172/75
--- NOTE | 2020-04-02 16:10 | ECGEPIP ---
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
== END 2020-04-02 06:56 | disposition short-term general hospital (02) ==
LOC: M ED 21:45
DX: I70.213 Atherosclerosis of native arteries of extremities with intermittent claudication, bilateral legs (principal); R00.1 Bradycardia, unspecified; I45.10 Unspecified right bundle-branch block; I48.91 Unspecified atrial fibrillation; I25.10 Atherosclerotic heart disease of native coronary artery without angina pectoris; E11.9 Type 2 diabetes mellitus without complications; I10 Essential (primary) hypertension; F32.9 Major depressive disorder, single episode, unspecified; M54.9 Dorsalgia, unspecified; D64.9 Anemia, unspecified; Z95.1 Presence of aortocoronary bypass graft; Z87.442 Personal history of urinary calculi; M47.816 Spondylosis without myelopathy or radiculopathy, lumbar region; M62.81 Muscle weakness (generalized); I70.211 Atherosclerosis of native arteries of extremities with intermittent claudication, right leg; K40.90 Unilateral inguinal hernia, without obstruction or gangrene, not specified as recurrent; Z79.84 Long term (current) use of oral hypoglycemic drugs; Z79.899 Other long term (current) drug therapy
CPT/HCPCS: 73706; 80048; 80076; 83605; 85025; 85610; 85652; 85730; 86140; 87040; 93005; 93971; 96374; 99284; J1644; J2270; Q9967

== ENCOUNTER → 2020-04-13 | Outpatient (REF) ==
[~2020-04-13] MED LIST changes: +ASPI81TAEC PO; +ATOR40TA75 PO; +CALC-362 PO; -CHEW500C2 PO; +CYMB1CAP5 PO; +DOXY100T PO; +ELIQ5TAB PO; +FERR325T18 PO; +GABA-1171 PO; +GABA-282; +GLIP5TAB8; +LISI-898; +LISI10TA22 PO; +MAGN50TA PO; +METO1TAB87 PO; +METO50TA7 PO; +PANT40TA29 PO; +SUCR1TA PO; +TAMS1CAP17 PO; +TRAD5TAB; +TRAM50TA2 PO
[2020-04-13 08:49] LABS: HEMOGLOBIN 8.6 g/dl (13.5-17.5); MEAN CORPUSCULAR HEMOGLOBIN 30.5 pg (27.0-33.0); MEAN CORPUSCULAR HGB CONC 30.7 g/dl (32.0-36.5); MEAN CORPUSCULAR VOLUME 99.3 fl (80.0-96.0); PLATELET COUNT, AUTOMATED 325 10^3/uL (150-450); RED BLOOD COUNT 2.82 10^6/uL (4.30-6.10); WHITE BLOOD COUNT 6.1 10^3/uL (4.0-10.0)
[2020-04-13 09:09] LABS: CALCIUM LEVEL 8.6 MG/DL (8.8-10.2); CREATININE FOR GFR 1.61 MG/DL (0.70-1.30); GLOMERULAR FILTRATION RATE 43.7 (>35); POTASSIUM SERUM 5.1 MEQ/L (3.5-5.1)
[2020-04-13 09:53] LABS: HEMOGLOBIN A1c 8.1 %
== END ==
LOC: SKLAB4 07:50
PROVIDERS: ATTEND Internal Medicine
DX: D64.9 Anemia, unspecified (principal); E11.9 Type 2 diabetes mellitus without complications

== ENCOUNTER → 2020-04-20 | Outpatient (REF) ==
[~2020-04-20] MED LIST changes: -ASPI81TAEC PO; -ATOR40TA75 PO; -CALC-362 PO; +CHEW500C2 PO; -CYMB1CAP5 PO; -DOXY100T PO; -ELIQ5TAB PO; -FERR325T18 PO; -GABA-1171 PO; -GABA-282; +GABA-843; -GLIP5TAB8; +LISI-542; -LISI-898; -LISI10TA22 PO; -MAGN50TA PO; -METO1TAB87 PO; -METO50TA7 PO; -PANT40TA29 PO; -SUCR1TA PO; -TAMS1CAP17 PO; -TRAD5TAB; -TRAM50TA2 PO
[2020-04-20 08:18] LABS: HEMATOCRIT 29.1 % (42.0-52.0); HEMOGLOBIN 8.9 g/dl (13.5-17.5); MEAN CORPUSCULAR HEMOGLOBIN 30.7 pg (27.0-33.0); MEAN CORPUSCULAR HGB CONC 30.6 g/dl (32.0-36.5); MEAN CORPUSCULAR VOLUME 100.3 fl (80.0-96.0); PLATELET COUNT, AUTOMATED 414 10^3/uL (150-450); WHITE BLOOD COUNT 6.4 10^3/uL (4.0-10.0)
[2020-04-20 08:36] LABS: CALCIUM LEVEL 9.1 MG/DL (8.8-10.2); CREATININE FOR GFR 1.4 MG/DL (0.70-1.30); GLOMERULAR FILTRATION RATE 51.4 (>35); POTASSIUM SERUM 5.2 MEQ/L (3.5-5.1)
== END ==
LOC: SKLAB4 06:00
PROVIDERS: ATTEND Internal Medicine
DX: D64.9 Anemia, unspecified (principal)

== ENCOUNTER → 2020-04-27 | Outpatient (REF) ==
[2020-04-27 09:40] LABS: HEMATOCRIT 30.7 % (42.0-52.0); HEMOGLOBIN 9.4 g/dl (13.5-17.5); MEAN CORPUSCULAR HEMOGLOBIN 30.8 pg (27.0-33.0); MEAN CORPUSCULAR HGB CONC 30.6 g/dl (32.0-36.5); MEAN CORPUSCULAR VOLUME 100.7 fl (80.0-96.0); PLATELET COUNT, AUTOMATED 296 10^3/uL (150-450); RED BLOOD COUNT 3.05 10^6/uL (4.30-6.10); WHITE BLOOD COUNT 7.3 10^3/uL (4.0-10.0)
== END ==
LOC: SKLAB4 10:13
PROVIDERS: ATTEND Internal Medicine
DX: D64.9 Anemia, unspecified (principal)

== ENCOUNTER → 2020-05-04 | Outpatient (REF) ==
[2020-05-04 12:18] LABS: HEMATOCRIT 27.5 % (42.0-52.0); HEMOGLOBIN 8.4 g/dl (13.5-17.5); MEAN CORPUSCULAR HEMOGLOBIN 30.4 pg (27.0-33.0); MEAN CORPUSCULAR HGB CONC 30.5 g/dl (32.0-36.5); MEAN CORPUSCULAR VOLUME 99.6 fl (80.0-96.0); PLATELET COUNT, AUTOMATED 199 10^3/uL (150-450); RED BLOOD COUNT 2.76 10^6/uL (4.30-6.10); WHITE BLOOD COUNT 4.9 10^3/uL (4.0-10.0)
== END ==
LOC: SKLAB4 14:44
PROVIDERS: ATTEND Internal Medicine
DX: D64.9 Anemia, unspecified (principal)

== ENCOUNTER → 2020-06-14 | Outpatient (CLI) | payer MEDICARE, OTHER ==
[~2020-06-14] MED LIST changes: +GABA-1171; +LISI10TA4; +TAMS1CAP17; +TRAD5TAB
[2020-06-14 17:20] LABS: BLOOD UREA NITROGEN 20 MG/DL (7-18); CREATININE FOR GFR 1.19 MG/DL (0.70-1.30); GLOMERULAR FILTRATION RATE > 60.0 (>35)
== END ==
LOC: M LRY 13:12
PROVIDERS: ATTEND Physician Assistant
DX: M43.16 Spondylolisthesis, lumbar region (principal)

== ENCOUNTER 2020-07-04 14:57 | Emergency (ER) | payer MEDICARE, OTHER ==
[~2020-07-04 14:57] MED LIST changes: -GABA-1171; -LISI10TA4; -TAMS1CAP17; -TRAD5TAB
[2020-07-04] MEDS ORDERED: TRAD5TAB (15:16)
[2020-07-04] MEDS ORDERED: TAMS1CAP17 (15:16)
[2020-07-04] MEDS ORDERED: GABA-1171 (15:16)
[2020-07-04] MEDS ORDERED: LISI10TA4 (15:16)
[2020-07-04 16:04] LABS: HEMATOCRIT 30.5 % (42.0-52.0); HEMOGLOBIN 9.4 g/dl (13.5-17.5); MEAN CORPUSCULAR HEMOGLOBIN 30.7 pg (27.0-33.0); MEAN CORPUSCULAR HGB CONC 30.8 g/dl (32.0-36.5); MEAN CORPUSCULAR VOLUME 99.7 fl (80.0-96.0); PLATELET COUNT, AUTOMATED 297 10^3/uL (150-450); RED BLOOD COUNT 3.06 10^6/uL (4.30-6.10); WHITE BLOOD COUNT 7.4 10^3/uL (4.0-10.0)
[2020-07-04 16:15] LABS: INR 0.89; PROTHROMBIN TIME 12.3 SECONDS (11.8-14.0)
[2020-07-04 16:16] LABS: EOSINOPHILS 1 % (0-3); LYMPHOCYTES 28 % (16-44); MONOCYTES 5 % (0-5); NEUTROPHILS 66 % (28-66); PARTIAL THROMBOPLASTIN TIME 27.5 SECONDS (25.0-38.4)
[2020-07-04 16:17] LABS: HYPOCHROMASIA 1+
[2020-07-04 16:18] LABS: PLATELET ESTIMATE NORMAL (NORMAL); POIKILOCYTOSIS 1+
[2020-07-04 16:24] LABS: ERYTHROCYTE SEDIMENTATION RATE 40 mm/hr (0-20)
[2020-07-04 16:28] LABS: BLOOD UREA NITROGEN 23 MG/DL (7-18); CALCIUM LEVEL 8.3 MG/DL (8.8-10.2); CARBON DIOXIDE LEVEL 22 MEQ/L (21-32); CHLORIDE LEVEL 110 MEQ/L (98-107); CREATININE FOR GFR 1.19 MG/DL (0.70-1.30); GLOMERULAR FILTRATION RATE > 60.0 (>35); GLUCOSE, FASTING 91 MG/DL (70-100); POTASSIUM SERUM 4.4 MEQ/L (3.5-5.1); SODIUM LEVEL 137 MEQ/L (136-145)
--- NOTE | 2020-07-04 17:18 | REPVR ---
PROCEDURE INFORMATION: Exam: XR Right Foot Complete Exam date and time: 07/04/2020 4:58 PM Age: 85 years old Clinical indication: Pain; Foot; Right; Additional info: Open ulcerated area TECHNIQUE: Imaging protocol: XR Right foot. Views: 3 or more views. COMPARISON: CT ANGIO LOWER EXTREM 04/02/2020 1:23 AM FINDINGS: Bones/joints: There is a lytic areas seen involving the base of the 5th proximal phalanx measuring 4 mm. Soft tissues: Normal. Vasculature: There is mild vascular calcifications. IMPRESSION: 1. Lytic area base of the 5th proximal phalanx. 2. Vascular calcifications. 3. No soft tissue air. Electronically signed by: Vishal Leigh On 07/04/2020 17:18:08 PM
--- NOTE | 2020-07-04 17:20 | REPVR ---
PROCEDURE INFORMATION: Exam: XR Right Tibia and Fibula Exam date and time: 07/04/2020 4:58 PM Age: 85 years old Clinical indication: Pain; Lower leg; Right; Additional info: Open ulcerated area TECHNIQUE: Imaging protocol: XR Right tibia and fibula. Views: 2 views. COMPARISON: CT ANGIO LOWER EXTREM 04/02/2020 1:23 AM FINDINGS: Bones/joints: There is a total knee replacement. Soft tissues: There is an area of suspected ulceration of the skin and subcutaneous tissues anteriorly at the level of distal tibia. Vasculature: Vascular calcifications. IMPRESSION: 1. Suspected area of soft tissue ulceration involving the anterior soft tissues at the distal calf just above the ankle. 2. These findings were not discussed on the foot x-ray but rather discussed on this x-ray performed the same time.. Electronically signed by: Vishal Leigh On 07/04/2020 17:20:13 PM
[2020-07-04] MEDS ORDERED: cefTRIAXone SOD 1 GM in D5W MINI-BAG PLUS 50 ML IV ONE (18:00)
[2020-07-04 18:53] VITALS: BP 164/81
== END 2020-07-04 19:01 | disposition short-term general hospital (02) ==
LOC: M ED 14:57
DX: E11.622 Type 2 diabetes mellitus with other skin ulcer (principal); I10 Essential (primary) hypertension; N40.0 Benign prostatic hyperplasia without lower urinary tract symptoms; I70.235 Atherosclerosis of native arteries of right leg with ulceration of other part of foot; M89.8X7 Other specified disorders of bone, ankle and foot; Z96.651 Presence of right artificial knee joint
CPT/HCPCS: 36415; 73590; 73630; 80048; 83605; 85025; 85610; 85652; 85730; 86140; 87040; 96365; 99284; J0696

== ENCOUNTER → 2020-07-14 | Outpatient (CLI) | payer MEDICARE, OTHER ==
[~2020-07-14] MED LIST changes: +GABA-1171; +LISI10TA4; +TAMS1CAP17; +TRAD5TAB
[2020-07-14 16:20] LABS: BASO % 0.6 % (0.0-1.0); EOS # 0.1 10^3/uL (0.0-0.5); EOS % 2.7 % (0.0-3.0); HEMATOCRIT 29.6 % (42.0-52.0); LYMPH # 1.4 10^3/uL (1.5-5.0); LYMPH % 26.6 % (24.0-44.0); MEAN CORPUSCULAR HEMOGLOBIN 29.8 pg (27.0-33.0); MEAN CORPUSCULAR HGB CONC 30.4 g/dl (32.0-36.5); MONO # 0.5 10^3/uL (0.0-0.8); MONO % 9.4 % (0.0-5.0); NEUTROPHILS # 3.1 10^3/uL (1.5-8.5); NEUTROPHILS % 58.6 % (36.0-66.0); PLATELET COUNT, AUTOMATED 286 10^3/uL (150-450); RED BLOOD COUNT 3.02 10^6/uL (4.30-6.10); WHITE BLOOD COUNT 5.2 10^3/uL (4.0-10.0)
[2020-07-14 17:13] LABS: ERYTHROCYTE SEDIMENTATION RATE 61 mm/hr (0-20)
== END ==
LOC: M LAB 15:46
PROVIDERS: ATTEND Physician Assistant
DX: M47.817 Spondylosis without myelopathy or radiculopathy, lumbosacral region (principal); M51.37 Other intervertebral disc degeneration, lumbosacral region; M43.16 Spondylolisthesis, lumbar region

== ENCOUNTER → 2020-07-18 | Outpatient (REF) | payer MEDICARE, OTHER | LOC: M LAB REF 16:09 | PROVIDERS: ATTEND Surgery | DX: L97.514 Non-pressure chronic ulcer of other part of right foot with necrosis of bone (principal) | CPT/HCPCS: 11042; 11044; 87070; 87077; 87186; 88304; 88311; G0463 ==

== ENCOUNTER → 2020-07-20 | Outpatient (CLI) | payer MEDICARE, OTHER ==
[2020-07-20 17:10] LABS: PLATELET COUNT, AUTOMATED 407 10^3/uL (150-450)
[2020-07-20 17:21] LABS: INR 1.07; PROTHROMBIN TIME 14.1 SECONDS (12.5-14.3)
== END ==
LOC: M LAB 15:39
PROVIDERS: ATTEND Physician Assistant
DX: M51.27 Other intervertebral disc displacement, lumbosacral region (principal); Z79.01 Long term (current) use of anticoagulants

== ENCOUNTER → 2020-08-18 | Outpatient (CLI) | payer MEDICARE, OTHER ==
[2020-08-18 16:40] LABS: HEMATOCRIT 28.7 % (42.0-52.0); HEMOGLOBIN 8.6 g/dl (13.5-17.5); MEAN CORPUSCULAR HEMOGLOBIN 28.2 pg (27.0-33.0); MEAN CORPUSCULAR VOLUME 94.1 fl (80.0-96.0); PLATELET COUNT, AUTOMATED 359 10^3/uL (150-450); RED BLOOD COUNT 3.05 10^6/uL (4.30-6.10); WHITE BLOOD COUNT 6.8 10^3/uL (4.0-10.0)
[2020-08-18 17:43] LABS: ERYTHROCYTE SEDIMENTATION RATE 58 mm/hr (0-20)
[2020-08-18 18:22] LABS: EOSINOPHILS 2 % (0-3); LYMPHOCYTES 16 % (16-44); METAMYELOCYTES 1 % (0-0); MONOCYTES 4 % (0-5); NEUTROPHILS 77 % (28-66)
[2020-08-18 18:26] LABS: PLATELET ESTIMATE NORMAL (NORMAL)
[2020-08-18 18:27] LABS: ANISOCYTOSIS 1+; HYPOCHROMASIA 1+
== END ==
LOC: M WUC 14:51
PROVIDERS: ATTEND Physician Assistant
DX: M65.341 Trigger finger, right ring finger (principal); M47.817 Spondylosis without myelopathy or radiculopathy, lumbosacral region; M51.37 Other intervertebral disc degeneration, lumbosacral region

== ENCOUNTER → 2020-08-22 | Outpatient (REF) | payer MEDICARE, OTHER | LOC: M SFHCPLAZ 17:18 | PROVIDERS: ATTEND Internal Medicine Infectious Disease | DX: L97.514 Non-pressure chronic ulcer of other part of right foot with necrosis of bone (principal) | CPT/HCPCS: 11042; 11044; 87070; 87077; 87186; 87205; G0463 ==

== ENCOUNTER → 2020-09-07 | Outpatient (REF) | payer MEDICARE, OTHER ==
[~2020-09-07] MED LIST changes: +CALC-362 PO; -CHEW500C2 PO; +DOXY100T PO; +ELIQ5TAB PO; -GABA-1171; +GABA-1171 PO; -LISI10TA4; +LISI10TA4 PO; +METO50TA7 PO; +PANT40TA29 PO; -TAMS1CAP17; +TAMS1CAP17 PO; +TRAM50TA2 PO
[2020-09-07 15:38] LABS: HEMATOCRIT 28.4 % (42.0-52.0); HEMOGLOBIN 8.5 g/dl (13.5-17.5); MEAN CORPUSCULAR HEMOGLOBIN 27.5 pg (27.0-33.0); MEAN CORPUSCULAR HGB CONC 29.9 g/dl (32.0-36.5); MEAN CORPUSCULAR VOLUME 91.9 fl (80.0-96.0); PLATELET COUNT, AUTOMATED 351 10^3/uL (150-450); RED BLOOD COUNT 3.09 10^6/uL (4.30-6.10); WHITE BLOOD COUNT 7.1 10^3/uL (4.0-10.0)
[2020-09-07 16:07] LABS: C REACTIVE PROTEIN QUANTITATIV 0.94 MG/DL (0.00-0.30); CALCIUM LEVEL 8.8 MG/DL (8.8-10.2); CREATININE FOR GFR 1.38 MG/DL (0.70-1.30); GLOMERULAR FILTRATION RATE 52.3 (>35); POTASSIUM SERUM 5.5 MEQ/L (3.5-5.1)
[2020-09-07 16:42] LABS: BASOPHILS 2 % (0-1); EOSINOPHILS 1 % (0-3); LYMPHOCYTES 22 % (16-44); MONOCYTES 2 % (0-5); NEUTROPHILS 73 % (28-66); OVALOCYTES 1+; PLATELET ESTIMATE NORMAL (NORMAL); POIKILOCYTOSIS 1+
[2020-09-07 16:43] LABS: TARGET CELLS 1+
[2020-09-07 17:31] LABS: ERYTHROCYTE SEDIMENTATION RATE 126 mm/hr (0-20)
== END ==
LOC: M SFHCPLAZ 13:27
PROVIDERS: ATTEND Internal Medicine Infectious Disease
DX: L03.115 Cellulitis of right lower limb (principal)
CPT/HCPCS: 36415; 80048; 85025; 85652; 86140; G0463

== ENCOUNTER 2020-09-23 05:55 | Inpatient (IN) | payer MEDICARE, OTHER ==
[~2020-09-23] VITALS: Ht 180.3 cm; Wt 89.0 kg
[~2020-09-23 05:55] MED LIST changes: -DOXY100T PO; -ELIQ5TAB PO; -METO50TA7 PO; -PANT40TA29 PO; -TRAM50TA2 PO
[2020-09-23] MEDS ORDERED: DEXTROSE 50% 50 ML SYRINGE As Ordered ONE (06:12)
[2020-09-23] MEDS ORDERED: DEXTROSE 50% 50 ML SYRINGE IV ONE (06:15)
[2020-09-23 06:41] LABS: HEMOGLOBIN 8.1 g/dl (13.5-17.5); MEAN CORPUSCULAR HEMOGLOBIN 27.5 pg (27.0-33.0); MEAN CORPUSCULAR VOLUME 91.5 fl (80.0-96.0); PLATELET COUNT, AUTOMATED 293 10^3/uL (150-450); RED BLOOD COUNT 2.95 10^6/uL (4.30-6.10); WHITE BLOOD COUNT 7.7 10^3/uL (4.0-10.0)
[2020-09-23] MEDS ORDERED: TRAM50TA2 PO (06:45)
[2020-09-23] MEDS ORDERED: PANT40TA29 PO (06:45)
[2020-09-23] MEDS ORDERED: ELIQ5TAB PO (06:45)
[2020-09-23 07:04] LABS: ATYPICAL LYMPH 1 % (0-5); EOSINOPHILS 1 % (0-3); LYMPHOCYTES 18 % (16-44); MONOCYTES 12 % (0-5); NEUTROPHILS 68 % (28-66)
[2020-09-23 07:05] LABS: ANISOCYTOSIS 1+; PLATELET ESTIMATE NORMAL (NORMAL)
--- NOTE | 2020-09-23 07:06 | REPVR ---
PROCEDURE INFORMATION: Exam: CT Head Without Contrast Exam date and time: 09/23/2020 6:20 AM Age: 85 years old Clinical indication: Altered mental status/memory loss TECHNIQUE: Imaging protocol: Computed tomography of the head without contrast. Radiation optimization: All CT scans at this facility use at least one of these dose optimization techniques: automated exposure control; mA and/or kV adjustment per patient size (includes targeted exams where dose is matched to clinical indication); or iterative reconstruction. COMPARISON: No relevant prior studies available. FINDINGS: Brain: There is moderate, diffuse parenchymal volume loss. There is heterogeneity of the white matter attenuation, most consistent with mild chronic white matter ischemic changes. Small focal areas of low attenuation are seen in the white matter of the bilateral frontal lobes, which are as low as CSF density, and consistent with small areas of encephalomalacia. There is no evidence of intracranial hemorrhage. The cortical/white matter interfaces are preserved throughout the brain. Cerebral ventricles: The ventricular system demonstrates moderate diffuse compensatory enlargement. Bones/joints: No acute fractures of the skull are identified. Paranasal sinuses: The visualized paranasal sinuses are clear. Mastoid air cells: There is a mild deformity of the left mastoid, which may be developmental or related to a partial mastoid resection. The left mastoid is only partially pneumatized. No mastoid effusions. Soft tissues: The soft tissues appear unremarkable. IMPRESSION: 1. No evidence of acute infarct or hemorrhage. 2. Parenchymal volume loss and low attenuation in the white matter, most consistent with mild chronic small vessel ischemic disease. 3. Small foci of encephalomalacia in the white matter of the bilateral frontal lobes. Electronically signed by: Sayra Davis On 09/23/2020 07:06:21 AM
[2020-09-23 07:07] LABS: OVALOCYTES 1+; POIKILOCYTOSIS 1+
--- NOTE | 2020-09-23 07:08 | REPVR ---
PROCEDURE INFORMATION: Exam: XR Chest, 1 View Exam date and time: 09/23/2020 6:32 AM Age: 85 years old Clinical indication: Other: AMS; Additional info: Altered mental status TECHNIQUE: Imaging protocol: XR of the chest Views: 1 view. COMPARISON: CR RIBS UNILATERAL WITH PA CHEST 07/29/2019 1:25 PM FINDINGS: Lungs: The lungs are clear. Pleural space: There is blunting of the right costophrenic angle, likely due to a small right pleural effusion. No pneumothorax is seen. Heart/Mediastinum: The heart is mildly enlarged. Vasculature: Aortic knob calcifications are noted. Bones/joints: There are sternal wires consistent with previous sternotomy incision. There is a deformity from an old, healed right 8th rib fracture. IMPRESSION: 1. Mild cardiomegaly. 2. Blunting of the right costophrenic angle, probably from a small right pleural effusion. 3. Clear lungs. Electronically signed by: Sayra Davis On 09/23/2020 07:08:33 AM
[2020-09-23 07:10] LABS: ACETAMINOPHEN LEVEL < 2.0 UG/ML (10.0-30.0); ALBUMIN 2.7 GM/DL (3.2-5.2); ALT/SGPT 14 U/L (12-78); BILIRUBIN,DIRECT 0.2 MG/DL (0.0-0.2); BILIRUBIN,TOTAL 0.5 MG/DL (0.2-1.0); BLOOD UREA NITROGEN 30 MG/DL (7-18); CALCIUM LEVEL 8.3 MG/DL (8.8-10.2); CARBON DIOXIDE LEVEL 27 MEQ/L (21-32); CHLORIDE LEVEL 102 MEQ/L (98-107); CK-MB VALUE MASS 4.7 NG/ML (<3.6); CPK CREATINE PHOSPHOKINASE 93 U/L (39-308); CREATININE FOR GFR 1.48 MG/DL (0.70-1.30); ETHYL ALCOHOL (ETHANOL) 0.003 % (0.000-0.010); GLOMERULAR FILTRATION RATE 48.2 (>35); GLUCOSE, FASTING 77 MG/DL (70-100); MB/CK RELATIVE INDEX 5.05 (< OR =4); POTASSIUM SERUM 4.4 MEQ/L (3.5-5.1); SALICYLATE LEVEL < 1.7 MG/DL (5.0-30.0); SODIUM LEVEL 134 MEQ/L (136-145); TOTAL PROTEIN 6.2 GM/DL (6.4-8.2); TROPONIN I < 0.02 NG/ML (< 0.10)
[2020-09-23] MEDS ORDERED: METO50TA7 PO (07:45)
[2020-09-23] MEDS ORDERED: traMADol 50 MG TAB PO ONE (07:45)
[2020-09-23] MEDS ORDERED: AMPICILLIN SOD/SULBACTAM SOD 3 GM in D5W MINI-BAG PLUS 100 ML IV ONE (07:45)
[2020-09-23 07:52] LABS: C REACTIVE PROTEIN QUANTITATIV 0.79 MG/DL (0.00-0.30)
--- NOTE | 2020-09-23 08:10 | REP ---
INDICATION: bedside - ro osteo - COVID neg. COMPARISON: July 04, 2020.. TECHNIQUE: AP and lateral views. FINDINGS: Two views of the right foot demonstrate diffuse forefoot swelling in the dorsal soft tissues. There is vascular calcification across the ankle and tiny plantar calcaneal spur is noted. There is mild osteoarthritis at the 1st MTP joint. No soft tissue gas is seen. No bony erosive changes noted.. No fracture or subluxation is seen. No opaque foreign body noted. IMPRESSION: Diffuse soft tissue swelling of the forefoot. No acute bony abnormality.. <Electronically signed by Gilson Sarah > 09/23/20 [id number]
[2020-09-23] MEDS ORDERED: DOXY100T PO (08:13)
--- NOTE | 2020-09-23 08:13 | REP ---
INDICATION: bedside - ro osteo - COVID neg. COMPARISON: July 04, 2020.. TECHNIQUE: Four views. FINDINGS: Four views of the right tib fib demonstrate a right knee arthroplasty again noted in place. There are surgical clips in the calf soft tissues proximally. Vascular calcification is apparent. There is tibiotalar spurring at the ankle. There is some diffuse pre tibial soft tissue edema. Diffuse fatty involution of the calf musculature is seen suggesting denervation or other chronic myopathy. There is some soft tissue swelling anteriorly at the ankle. This is similar to the prior study of July 04, 2020. No soft tissue gas is seen. No fracture or subluxation is seen. No opaque foreign body noted. IMPRESSION: Pretibial and anterior periarticular soft tissue swelling the distal calf and ankle. Chronic myopathy with fatty involution of the calf musculature again noted. Right knee arthroplasty. No acute bony abnormality. Vascular calcification.. <Electronically signed by Gilson Sarah > 09/23/20 [id number]
[2020-09-23 08:21] LABS: ERYTHROCYTE SEDIMENTATION RATE 54 mm/hr (0-20)
[2020-09-23] MEDS ORDERED: D5W/0.45% SODIUM CHLORIDE 1,000 ML IV SCH (08:30)
[2020-09-23] MEDS ORDERED: ACETAMINOPHEN TAB 650MG DOSE (2X325MG) PO PRN (08:45)
[2020-09-23] MEDS ORDERED: DEXTROSE 50% 50 ML SYRINGE IV PRN (09:00)
[2020-09-23] MEDS: METOPROLOL TART 25 MG TABLET PO SCH ×2 (09:00→21:55)
[2020-09-23] MEDS: NS 1,000 ML IV SCH ×2 (09:00→22:32)
[2020-09-23] MEDS ORDERED: GLUCAGON INJ 1MG VIAL SC PRN (09:00)
[2020-09-23] MEDS ORDERED: GLUCOSE 4GM CHEW TABLET PO PRN (09:00)
--- NOTE | 2020-09-23 09:17 | HPEPDOC ---
General Date of Admission Sep 23, 2020 at 08:44 Date of Service: Sep 23, 2020 Chief Complaint The patient is a 85-year-old male admitted with a reason for visit of Arterial Insufficiency Of Lower Extremity. Source: Patient Exam Limitations: No limitations Timing/Duration: Week(s) Severity: Moderate History of Present Illness Patient is 85 years old male with past mental history of hypertension, type 2 diabetes, coronary artery diseases, atrial fibrillation, peripheral vascular diseases with palliative care involving his right lower extremity with 3 arterial wounds presented to the hospital with altered mental status. According to report patient was confused since roasterman and family brought him in ER. In ER patient was found to have no leukocytosis, hemoglobin 8.1 Creatinine 8.4, glucose level of 60. CT head negative for acute infarct or hemorrhage, right distal leg x-ray showed Pretibial and anterior periarticular soft tissue swelling the distal calf and ankle. Of note patient followed for palliative care involving his right lower extremity 3 arterial wounds by , patient on chronic therapy with doxycycline. Previously patient declined right AKA Home Medications Scheduled Apixaban (Eliquis) 5 Mg Tablet, 5 MG PO BID, (Reported) Doxycycline Hyclate (Doxycycline Hyclate) 100 Mg Tablet, 100 MG PO BID, (Reported) PT'S DAUGHTER THOUGHT HE HAD ABOUT A WEEK LEFT Fish Oil/Borage/Flax/Om3,6,9 1 ([place] 3-6-9 Complex Softgel) 1 Cap Cap, 1 CAP PO DAILY, (Reported) Gabapentin (Gabapentin) 100 Mg Capsule, 100 MG PO TID, (Reported) Glipizide (Glipizide) 5 Mg Tab, 5 MG PO BID, (Reported) Lisinopril (Lisinopril) 10 Mg Tablet, 10 MG PO DAILY, (Reported) Metformin HCl (Metformin HCl) 500 Mg Tab, 1,000 MG PO BID, (Reported) Metoprolol Tartrate (Metoprolol Tartrate) 50 Mg Tablet, 25 MG PO BID, (Reported) Pantoprazole Sodium (Pantoprazole Sodium) 40 Mg Tablet.dr, 40 MG PO DAILY, (Reported) Tamsulosin Hcl (Tamsulosin HCl) 0.4 Mg Capsule, 0.4 MG PO DAILY, (Reported) Tramadol HCl (Tramadol HCl) 50 Mg Tablet, 50 MG PO BID, (Reported) Vitamin B Complex (Vitamin B Complex) 1 Tab Tab, 1 TAB PO DAILY, (Reported) Allergies Coded Allergies: No Known Allergies (Unverified , 04/01/20) Past Medical History Medical History HTN DIABETES HIATAL HERNIA CAD (JEROME 2010), PAROXSYMAL A-FIB/FLUTTER ULNAR NERVE TRANSPLANT 2014 KIDNEY STONES ACTINIC KERATOSIS ANEMIA ATRIAL FLUTTER LUMBAR SPONDYLOSIS WITH RIGHT-SIDED MOTOR WEAKNESS, LONG-STANDING Surgical History BACK SURGERY RIGHT KNEE REPLACEMENT TOES STRAIGHTENED BILATERIAL CARPEL TUNNEL SURGERY HEART BYPASS SURGERY NERVE IN RIGHT ELBOW URETEROSCOPY/LASER LITHOTRIPSY 12/19/2017 ANGIOPLASTY 04/2020 Family History FATHER: MOTHER: , DIAGNOSED WITH UNSPECIFIED HEART DISEASE 1 SISTER(S) . 1 SON(S) , 2 DAUGHTER(S) . SISTER: HEART SURGERY\\NDAUGHTER: MS\\NDENIES FAMILY HISTORY OF SKIN CANCER AND PANCREATIC CANCER. Social History * Smoker: Denies Alcohol: Denies Drugs: denies A-FIB/CHADSVASC A-FIB History Current/History of A-Fib/PAF?: Yes Current PO Anticoag Therapy: Yes Review of Systems Constitutional: Denies: Chills, Fever Eyes: Denies: Pain ENT: Denies: Head Aches Skin: Denies: Rash Pulmonary: Denies: Dyspnea Cardiovascular: Denies: Chest Pain Gastrointestinal: Denies: Nausea Genitourinary: Denies: Dysuria, Frequency Hematologic: Denies: Bruising Endocrine: Denies: Polydipsia Musculoskeletal: Reports: Leg Pain Neurological: Denies: Weakness Psych: Reports: Mood Normal Physical Examination General Exam: Positive: Alert, Cooperative Eye Exam: Positive: PERRLA ENT Exam: Positive: Atraumatic Neck Exam: Positive: Supple; Negative: JVD Chest Exam: Positive: Clear to auscultation Heart Exam: Positive: Irregular Rhythm Telemetry: Positive: Atrial fibrillation Abdomen Exam: Positive: Normal bowel sounds Extremity Exam: Positive: Tenderness (right anterior tibial area tenderness), Other (MULTIPLE WOUNDS RIGHT LOWER EXTREMITY MEASURING 5.0 CM X 2.8 CM, 1.2 CM X 0.8 CM AND 2.2 CM X) Skin Exam: Positive: Breakdown Neuro Exam: Positive: Cranial Nerves 3-12 NL Psych Exam: Positive: Mood NL Vital Signs Vital Signs Date Time Temp Pulse Resp B/P (MAP) Pulse Ox O2 Delivery O2 Flow Rate FiO2 09/23/20 08:01 18 99 Room Air 09/23/20 07:15 57 121/59 (79) 09/23/20 07:06 96.5 Laboratory Data Labs 24H Laboratory Tests 2 09/23/20 06:11: Bedside Glucose (Misc Panel) 60L 09/23/20 06:21: Immature Granulocyte % (Auto) , Neutrophils (%) (Auto) , Nucleated Red Blood Cells % (auto) 0.0, Neutrophils 68H, Lymphocytes (Manual) 18, Monocytes (Manual) 12H, Eosinophils (Manual) 1, Atypical Lymphocytes 1, Poikilocytosis 1+, Anisocytosis 1+, Ovalocytes 1+, Platelet Estimate NORMAL, Erythrocyte Sedimentation Rate 54H, Anion Gap 5L, Glomerular Filtration Rate 48.2, Lactic Acid Level 0.6, Calcium Level 8.3L, Total Bilirubin 0.5, Direct Bilirubin 0.2, Aspartate Amino Transf (AST/SGOT) 8, Alanine Aminotransferase (ALT/SGPT) 14, Alkaline Phosphatase 75, Total Creatine Kinase 93, Creatine Kinase MB 4.7H, Creatine Kinase MB Relative Index 5.05H, Troponin I < 0.02, C-Reactive Protein, Quantitative 0.79H, Total Protein 6.2L, Albumin 2.7L, Albumin/Globulin Ratio 0.8, Thyroid Stimulating Hormone (TSH) 1.550, Salicylates Level < 1.7L, Acetaminophen Level < 2.0L, Ethyl Alcohol Level 0.003 09/23/20 06:31: Coronavirus (COVID-19)(PCR) NEGATIVE, Influenza Type A (RT-PCR) NEGATIVE, Influenza Type B (RT-PCR) NEGATIVE, Respiratory Syncytial Virus (PCR) NEGATIVE 09/23/20 06:34: Bedside Glucose (Misc Panel) 94 09/23/20 06:51: Bedside Glucose (Misc Panel) 145H 09/23/20 07:15: Bedside Glucose (Misc Panel) 121H 09/23/20 08:11: Bedside Glucose (Misc Panel) 102 CBC/BMP Laboratory Tests 09/23/20 06:21 Microbiology Microbiology 09/23/20 Wound Culture, Received Pending 09/23/20 Blood Culture, Received Pending Assessment/Plan Patient is 85 years old male with past mental history of hypertension, type 2 diabetes, coronary artery diseases, atrial fibrillation, peripheral vascular diseases with palliative care involving his right lower extremity with 3 arterial wounds presented to the hospital with altered mental status. According to report patient was confused since roasterman and family brought him in ER. In ER patient was found to have no leukocytosis, hemoglobin 8.1 Creatinine 8.4, glucose level of 60. CT head negative for acute infarct or hemorrhage, right distal leg x-ray showed Pretibial and anterior periarticular soft tissue swelling the distal calf and ankle. Of note patient followed for palliative care involving his right lower extremity 3 arterial wounds by , patient on chronic therapy with doxycycline. Previously patient declined right AKA Problems (1) Hypoglycemia Status: Acute Problem Text: Patient received D50 with positive effect Hyperglycemia could be secondary to infection, oral diabetes medication Patient doesn't have leukocytosis, not febrile (2) Diabetes mellitus Status: Chronic Problem Text: Insulin sliding scale Will check HbA1c (3) Leg wound, right Problem Text: Appreciate/agree with surgical consult I talked the patient and he is agree to discuss right leg amputation with surgic al team (4) Arterial insufficiency of lower extremity Status: Acute Problem Text: Patient has severe peripheral vascular diseases with unhealed wound of right leg See above (5) Metabolic encephalopathy Status: Acute Problem Text: When I saw patient he was able to answer my question His mentation improved Possibly Most likely secondary to hypoglycemia superimposed with polypharmacy. DC gabapentin Patient afebrile, does not have leukocytosis, patient was on chronic doxycycline therapy Blood culture, will check pro calcitonin (6) Atrial fibrillation Status: Chronic Problem Text: Eliquis on hold due to possible right AKA Plan / VTE VTE Prophylaxis Ordered?: Yes ERAN NETTLES DO Sep 23, 2020 09:17
[2020-09-23 10:45] VITALS: BP 132/63
[2020-09-23] MEDS: TAMSULOSIN 0.4 MG CAP PO SCH (11:57)
[2020-09-23] MEDS: PANTOPRAZOLE 40MG TAB (PROTONIX) PO SCH (11:58)
[2020-09-23] MEDS: lisinopriL 10 MG TAB PO SCH (11:58)
[2020-09-23] MEDS: HEPARIN SOD (PORCINE) 5000UNITS/ML 1ML VIAL/SYRINGE SC SCH ×2 (11:59→21:54)
[2020-09-23] MEDS: DOXYCYCLINE HYCLATE 100MG TABLET PO SCH ×2 (11:59→21:54)
[2020-09-23] MEDS: HumaLOG INSULIN (NovoLOG) PER UNIT SC SCH ×3 (12:00→21:00)
[2020-09-23] MEDS: PERCOCET 5MG/325MG TAB PO PRN ×2 (13:36→19:42)
--- NOTE | 2020-09-23 13:56 | CR.PDOC ---
General Date of Consultation: Sep 23, 2020 Consultation REASON FOR CONSULTATION/CHIEF COMPLAINT: Nonhealing wounds right foot-wants to discuss amputation HISTORY OF PRESENT ILLNESS: Very pleasant 85-year-old gentleman with a history of atherosclerosis in the [place] arteries and long-standing wounds right first toe and dorsal foot, seen in the past in [facility] for bilateral lower extremity bypasses, and subsequently followed here with wound care. The patient said he was told the last time he was seen in [facility] that he needed an amputation of the right lower extremity, but he was not ready to proceed with this and decided to continue with local wound care. His right lower extremity situation is complicated by sciatica pain, which sometimes is extremely severe. The patient has a hard time understanding what of his pain is neuropathic versus arterial. He said he was told that his bypasses were not working. I dopplered his bypass at the bedside today on both sides, and I thought I could auscultate good flow through both. However, is difficult to auscultate flow at the DP and PT due to swelling and ulcerations on the right foot, and swelling on the left foot also, and due to the fact that her Doppler is intermittently not working due to her faulty battery. Nevertheless, I think before we discussed amputation, we need to establish what arterial flow he has on the right. It is unclear to me if his bypasses open if he has enough tibial flow to heel and toe amputation and possibly heal the ulcer on the dorsal foot, but if not its possible we could provide intervention to improve flow. Having said that, I did express to him that if he has tibial disease that can't be repaired, he would be a candidate for a below-knee amputation of his bypasses open. After extensive discussion with the patient about our plan, he is agreeable to proceed and we will schedule the arterial study. ALLERGIES: Please see below. HOME MEDICATIONS: Please see below. PAST MEDICAL HISTORY: HTN, DM, hiatal hernia, CAD, A. fib, kidney stones, anemia, sciatica PAST SURGICAL HISTORY: Right knee replacement, back surgery, foot surgery, carpal tunnel surgery, CABG, lithotripsy for kidney stones, angioplasty and bilateral lower extremity bypass FAMILY HISTORY: Heart disease SOCIAL HISTORY: Denies any history of tobacco use in the past or current. Denies alcohol or illicit drug use. REVIEW OF SYSTEMS: CONSTITUTIONAL: Denies fevers or chills HEENT: Denies headache, positive loss of smell CARDIOVASCULAR: Denies chest pain, positive palpitations RESPIRATORY: Denies shortness of breath GENITOURINARY: History of kidney stones no current recent kidney stones MUSCULOSKELETAL: Positive lower extremity pain from sciatica and arterial insufficiency GASTROINTESTINAL: Denies nausea vomiting diarrhea SKIN: Positive actinic keratosis and nonhealing wounds right dorsal foot and first toe NEUROLOGICAL: Denies stroke headache or seizures PSYCHIATRIC: Denies anxiety or depression ENDOCRINE: Positive diabetes HEMATOLOGIC/LYMPHATIC: Denies anemia ALLERGIC/IMMUNOLOGIC: Denies PHYSICAL EXAMINATION: VITAL SIGNS: Please see below. GENERAL APPEARANCE: Medically stable HEENT: Normocephalic RESPIRATORY: Clear to auscultation CARDIOVASCULAR: Irregular ABDOMEN: Soft nontender EXTREMITIES: Lower extremities have 2+ edema, feet are warm, it is difficult to Doppler DP and PT signals. However, the patient has strong signals over the ri ght and left femoropopliteal bypasses. On the right foot, he has a dorsal wound proximal to the ankle that appears chronic and arterial. He also has ulceration with fibrinous exudate over open wounds on the medial and lateral aspect of the first toe with discoloration of the toe status post trauma. Dressings were applied. NEUROLOGICAL: Alert and oriented 3, no focal deficits noted PSYCHIATRIC: Very pleasant and cooperative LABORATORY DATA: Please see below. ASSESSMENT/PLAN: Very pleasant 85-year-old gentleman with long-standing history of atherosclerosis in the [place] arteries and nonhealing wounds of the right first toe and right dorsal foot 1. Local wound care daily to the right foot. 2. Arterial duplex to establish baseline arterial flow before discussing further intervention. 3. Recommend aspirin and statin daily. Patient is on eliquis, but recommend an antiplatelet in addition to this if he can tolerate it and has no contraindication. Additionally, he should definitely be on a statin medication with his level of arterial disease if not contraindicated, and if he has not tolerated a statin in the past, would try a low dose of each statin to see if he can tolerate any. We appreciate the opportunity to participate in care of this patient. Vital Signs/I&O Vital Signs Date Time Temp Pulse Resp B/P (MAP) Pulse Ox O2 Delivery O2 Flow Rate FiO2 09/23/20 13:36 16 09/23/20 11:58 137/59 09/23/20 10:00 98.6 61 93 Room Air Laboratory Data Labs 24H Laboratory Tests 2 09/23/20 06:11: Bedside Glucose (Misc Panel) 60L 09/23/20 06:21: Immature Granulocyte % (Auto) , Neutrophils (%) (Auto) , Nucleated Red Blood Cells % (auto) 0.0, Neutrophils 68H, Lymphocytes (Manual) 18, Monocytes (Manual) 12H, Eosinophils (Manual) 1, Atypical Lymphocytes 1, Poikilocytosis 1+, Anisocytosis 1+, Ovalocytes 1+, Platelet Estimate NORMAL, Erythrocyte Se dimentation Rate 54H, Anion Gap 5L, Glomerular Filtration Rate 48.2, Lactic Acid Level 0.6, Calcium Level 8.3L, Total Bilirubin 0.5, Direct Bilirubin 0.2, Aspartate Amino Transf (AST/SGOT) 8, Alanine Aminotransferase (ALT/SGPT) 14, Alkaline Phosphatase 75, Total Creatine Kinase 93, Creatine Kinase MB 4.7H, Creatine Kinase MB Relative Index 5.05H, Troponin I < 0.02, C-Reactive Protein, Quantitative 0.79H, Total Protein 6.2L, Albumin 2.7L, Albumin/Globulin Ratio 0.8, Thyroid Stimulating Hormone (TSH) 1.550, Salicylates Level < 1.7L, Acetaminophen Level < 2.0L, Ethyl Alcohol Level 0.003 09/23/20 06:31: Coronavirus (COVID-19)(PCR) NEGATIVE, Influenza Type A (RT-PCR) NEGATIVE, Influenza Type B (RT-PCR) NEGATIVE, Respiratory Syncytial Virus (PCR) NEGATIVE 09/23/20 06:34: Bedside Glucose (Misc Panel) 94 09/23/20 06:51: Bedside Glucose (Misc Panel) 145H 09/23/20 07:15: Bedside Glucose (Misc Panel) 121H 09/23/20 08:11: Bedside Glucose (Misc Panel) 102 09/23/20 10:14: Bedside Glucose (Misc Panel) 110 09/23/20 11:08: Bedside Glucose (Misc Panel) 99 CBC/BMP Laboratory Tests 09/23/20 06:21 Microbiology Microbiology 09/23/20 Wound Culture, Received Pending 09/23/20 Blood Culture, Received Pending Allergies Coded Allergies: No Known Allergies (Unverified , 04/01/20) Home Medications Scheduled Apixaban (Eliquis) 5 Mg Tablet, 5 MG PO BID, (Reported) Doxycycline Hyclate (Doxycycline Hyclate) 100 Mg Tablet, 100 MG PO BID, (Reported) PT'S DAUGHTER THOUGHT HE HAD ABOUT A WEEK LEFT Fish Oil/Borage/Flax/Om3,6,9 1 ([place] 3-6-9 Complex Softgel) 1 Cap Cap, 1 CAP PO DAILY, (Reported) Gabapentin (Gabapentin) 100 Mg Capsule, 100 MG PO TID, (Reported) Glipizide (Glipizide) 5 Mg Tab, 5 MG PO BID, (Reported) Lisinopril (Lisinopril) 10 Mg Tablet, 10 MG PO DAILY, (Reported) Metformin HCl (Metformin HCl) 500 Mg Tab, 1,000 MG PO BID, (Reported) Metoprolol Tartrate (Metoprolol Tartrate) 50 Mg Tablet, 25 MG PO BID, (Reported) Pantoprazole Sodium (Pantoprazole Sodium) 40 Mg Tablet.dr, 40 MG PO DAILY, (Reported) Tamsulosin Hcl (Tamsulosin HCl) 0.4 Mg Capsule, 0.4 MG PO DAILY, (Reported) Tramadol HCl (Tramadol HCl) 50 Mg Tablet, 50 MG PO BID, (Reported) Vitamin B Complex (Vitamin B Complex) 1 Tab Tab, 1 TAB PO DAILY, (Reported) BINDU VIZCAINO MD Sep 23, 2020 13:56
[2020-09-23 14:00] VITALS: BP 139/61
--- NOTE | 2020-09-23 16:49 | ECGEPIP ---
[facility] - ED Test Date: 2020-09-23 Pat Name: LOC GUTIERREZ Department: Room: - Gender: Male Management Intern: RICCARDO : 1935 Requested By: PATO Goldman Order Number: [id number] Reading MD: Amalia Durant Measurements Intervals [place] Rate: 60 P: 0 UT: 185 QRS: -30 QRSD: 161 T: -2 QT: 476 QTc: 477 Interpretive Statements SINUS RHYTHM WITH OCCASIONAL SUPRAVENTRICULAR PREMATURE COMPLEXES BORDERLINE LEFT AXIS DEVIATION RIGHT BUNDLE BRANCH BLOCK LOW QRS VOLTAGE LIMB LEADS NONSPECIFIC ST T WAVE CHANGES CW 04/02/20 [facility] Electronically Signed on 09-23-2020 16:48:56 EST by Amalia Durant
--- NOTE | 2020-09-23 18:04 | REP ---
INDICATION: possible CVA COMPARISON: Comparison exam is from February 15, 2009.. TECHNIQUE: Real-time ultrasound evaluation and duplex Doppler interrogation of the extracranial carotid vasculature is performed. FINDINGS: Antegrade flow is observed in the left vertebral artery. The right vertebral artery was not seen.. Right carotid: The right common carotid artery shows diffuse intimal thickening but is otherwise unremarkable. There ismild mixed plaquing in the right carotid bulb and proximal ICA on two-dimensional scanning. Color flow and spectral Doppler interrogation are unremarkable on the right. Velocity chart right carotid: Right CCA PSV: 75.1 cm/S Right ICA PSV: 71.6 cm/S Right ICA EDV: 20.7 cm/S Right ECA PSV: 94.2 cm/S Right ICA/CCA ratio: 1.22 Left carotid: The left common carotid artery shows diffuse intimal thickening but is otherwise unremarkable. There is mild mixed plaquing in the left carotid bulb and proximal ICA on two-dimensional scanning. Color flow and spectral Doppler interrogation are unremarkable on the left. Velocity chart left carotid: Left CCA PSV: 120.9 cm/S Left ICA PSV: 66.2 cm/S Left ICA EDV: 15.4 cm/S Left ECA PSV: 116 cm/S Left ICA/CCA ratio: 0.52 IMPRESSION: Less than 50% category narrowing in the right internal carotid artery by Doppler velocity criteria. Right vertebral artery not visualized. Less than 50% category narrowing in the left ICA by Doppler velocity criteria. <Electronically signed by Gilson Sarah > 09/23/20 1922
[2020-09-23] MEDS ORDERED: MORPHINE 2 MG/ML 1ML VIAL (J2270) IV PRN (19:45)
[2020-09-23 22:00] VITALS: BP 127/62
[2020-09-23] MEDS: GABAPENTIN 100 MG CAP PO SCH (22:31)
[2020-09-24] MEDS: MORPHINE 2 MG/ML 1ML VIAL (J2270) IV PRN ×4 (04:20→22:00)
[2020-09-24] MEDS: PERCOCET 5MG/325MG TAB PO PRN ×2 (05:34→16:01)
[2020-09-24 06:00] VITALS: BP 142/59
[2020-09-24] MEDS: NS 1,000 ML IV SCH (07:14)
[2020-09-24] MEDS: HumaLOG INSULIN (NovoLOG) PER UNIT SC SCH ×4 (07:30→21:00)
[2020-09-24 07:51] LABS: HEMATOCRIT 24.9 % (42.0-52.0); HEMOGLOBIN 7.8 g/dl (13.5-17.5); MEAN CORPUSCULAR HEMOGLOBIN 28.3 pg (27.0-33.0); MEAN CORPUSCULAR HGB CONC 31.3 g/dl (32.0-36.5); MEAN CORPUSCULAR VOLUME 90.2 fl (80.0-96.0); PLATELET COUNT, AUTOMATED 251 10^3/uL (150-450); RED BLOOD COUNT 2.76 10^6/uL (4.30-6.10); WHITE BLOOD COUNT 5.6 10^3/uL (4.0-10.0)
[2020-09-24] MEDS: GABAPENTIN 100 MG CAP PO SCH ×3 (08:26→21:58)
[2020-09-24] MEDS: DOXYCYCLINE HYCLATE 100MG TABLET PO SCH ×2 (08:27→21:58)
[2020-09-24] MEDS: lisinopriL 10 MG TAB PO SCH (08:27)
[2020-09-24] MEDS: TAMSULOSIN 0.4 MG CAP PO SCH (08:27)
[2020-09-24] MEDS: PANTOPRAZOLE 40MG TAB (PROTONIX) PO SCH (08:27)
[2020-09-24] MEDS: METOPROLOL TART 25 MG TABLET PO SCH ×2 (08:28→21:58)
[2020-09-24] MEDS: HEPARIN SOD (PORCINE) 5000UNITS/ML 1ML VIAL/SYRINGE SC SCH ×2 (08:28→21:59)
[2020-09-24 08:31] LABS: BLOOD UREA NITROGEN 20 MG/DL (7-18); CALCIUM LEVEL 7.7 MG/DL (8.8-10.2); CARBON DIOXIDE LEVEL 25 MEQ/L (21-32); CHLORIDE LEVEL 107 MEQ/L (98-107); CREATININE FOR GFR 1.12 MG/DL (0.70-1.30); GLOMERULAR FILTRATION RATE > 60.0 (>35); GLUCOSE, FASTING 98 MG/DL (70-100); MAGNESIUM LEVEL 1.1 MG/DL (1.8-2.4); POTASSIUM SERUM 4.2 MEQ/L (3.5-5.1); SODIUM LEVEL 139 MEQ/L (136-145)
[2020-09-24] MEDS ORDERED: ASPIRIN 81 MG CHEW TABLET PO ONE (12:30)
[2020-09-24] MEDS ORDERED: ATORVASTATIN 20 MG TAB PO ONE (12:30)
--- NOTE | 2020-09-24 12:44 | IPNPDOC ---
Text Note Date of Service The patient was seen on 09/24/20. NOTE Subjective: Patient continues to complain of right leg pain, he stated it is 6 out of 10. Objective: GENERAL APPEARANCE: NAD HEENT: no scleral icterus, no JVD, EOMI CARDIOVASCULAR: Irregularly irregular LUNGS: CTA ABDOMEN: soft & not tender w palpitation MUSCULOSKELETAL: Tenderness (right anterior tibial area tenderness), Other (MULTIPLE WOUNDS RIGHT LOWER EXTREMITY MEASURING 5.0 CM X 2.8 CM, 1.2 CM X 0.8 CM AND 2.2 CM X) INTEGUMENT: no generalized palor NEUROLOGICAL: cranial nerve function from 2-12 intact intact, follows commands, speech not dysarthric Assessment/Plan Patient is 85 years old male with past mental history of hypertension, type 2 diabetes, coronary artery diseases, atrial fibrillation, peripheral vascular diseases with palliative care involving his right lower extremity with 3 arterial wounds presented to the hospital with altered mental status. According to report patient was confused since blender and family brought him in ER. In ER patient was found to have no leukocytosis, hemoglobin 8.1 Creatinine 8.4, glucose level of 60. CT head negative for acute infarct or hemorrhage, right distal leg x-ray showed Pretibial and anterior periarticular soft tissue swelling the distal calf and ankle. Of note patient followed for palliative care involving his right lower extremity 3 arterial wounds by , patient on chronic therapy with doxycycline. Previously patient declined right AKA Problems (1) Hypoglycemia Resolved Patient received D50 with positive effect on admission Hyperglycemia could be secondary to infection, oral diabetes medication Patient doesn't have leukocytosis, not febrile (2) Diabetes mellitus Insulin sliding scale await HbA1c (3) Leg wound, right 2/2 atherosclerosis in the [place] arteries nonhealing wounds of the right first toe and right dorsal foot Dr. Strauss recommended Arterial duplex to establish baseline arterial flow before discussing further intervention Continue suppressive dose of doxycycline (4) Arterial insufficiency of lower extremity Patient has severe peripheral vascular diseases with unhealed wound of right leg Aspirin and statin admitted to medical regimen (5) Metabolic encephalopathy Resolved Possibly Most likely secondary to hypoglycemia superimposed with polypharmacy. DC gabapentin Patient afebrile, does not have leukocytosis, patient was on chronic doxycycline therapy Blood culture negative (6) Atrial fibrillation Eliquis on hold due to possible right AKA VS,Fishbone, I+O VS, Fishbone, I+O Laboratory Tests 09/24/20 07:15 Vital Signs Date Time Temp Pulse Resp B/P (MAP) Pulse Ox O2 Delivery O2 Flow Rate FiO2 09/24/20 11:32 16 09/24/20 08:28 66 141/61 09/24/20 06:00 98.9 96 Room Air I&O- Last 24 Hours up to 6 AM 09/24/20 06:00 Intake Total 2160 ml Output Total 1550 ml Balance 610 ml ERAN NETTLES DO Sep 24, 2020 12:43
[2020-09-24] MEDS ORDERED: MAG SULF 1GM/100ML (MAG RUN) 1 GM in IV 1 EA IV ONE (13:00)
[2020-09-24 13:05] LABS: HEMOGLOBIN A1c 7.5 %
[2020-09-24 14:00] VITALS: BP 107/45
[2020-09-24] MEDS: MAGNESIUM GLUCONATE 500 MG TAB PO SCH ×2 (15:13→21:59)
[2020-09-24 16:05] VITALS: BP 119/49
[2020-09-24 22:00] VITALS: BP 122/54
[2020-09-25] MEDS: PERCOCET 5MG/325MG TAB PO PRN ×2 (02:15→17:04)
[2020-09-25] MEDS: MORPHINE 2 MG/ML 1ML VIAL (J2270) IV PRN (03:31)
[2020-09-25 06:00] VITALS: BP 122/56
[2020-09-25] MEDS: HumaLOG INSULIN (NovoLOG) PER UNIT SC SCH ×4 (07:30→21:00)
[2020-09-25] MEDS: HEPARIN SOD (PORCINE) 5000UNITS/ML 1ML VIAL/SYRINGE SC SCH ×2 (09:00→20:13)
[2020-09-25] MEDS: ASPIRIN 81 MG CHEW TABLET PO SCH (09:00)
--- NOTE | 2020-09-25 09:30 | REP ---
INDICATION: atherosclerosis of the [place] arteries with ulcer right foot. Status post right sided bypass graft. Saphenous vein harvest from the left. Incisions on the right leg proximal to mid thigh and popliteal region. Wound on foot. COMPARISON: Comparison CT angio April 02, 2020.. TECHNIQUE: Bilateral lower extremity arterial Doppler ultrasound. FINDINGS: Ankle brachial indices could not be assessed to the noncompressible vessels. In the right lower extremity decreased inflow velocities were observed with monophasic waveforms in the common femoral and distal arteries. The right popliteal proximal anterior and posterior tibial and tibial-peroneal trunk show no observable flow and heavily calcified vessels. The distal posterior tibial artery shows no flow on the right. There was no observable bypass graft in the right leg, consistent with occlusion of the bypass graft placed on the right. Right lower extremity arterial Doppler velocity chart: Right GEOSPATIAL APPLICATIONS DEVELOPER PSV 51 cm/S Profundal 59 Proximal SFA 42 Mid SFA 33 Distal SFA 24 Popliteal 9/0 Proximal ERIC no flow Tibial-peroneal trunk no flow Proximal SHREDDER/GRANULATOR OPERATOR 8 no flow Distal SHREDDER/GRANULATOR OPERATOR 8 no flow Distal ERIC 21 In the left lower extremity biphasic waveforms are noted at and proximal to the popliteal and monophasic arterial waveforms are noted distally. No flow could be observed in the proximal posterior tibial artery on the left. Heavily calcified calf vessels are seen on the left. Left lower extremity arterial Doppler velocity chart: Left GEOSPATIAL APPLICATIONS DEVELOPER PSV 90 cm/S Profundal 59 Proximal SFA 44 Mid SFA 56 Distal SFA 65 Popliteal 65 Proximal ERIC 65 Tibial-peroneal trunk 37 Proximal SHREDDER/GRANULATOR OPERATOR not seen Distal SHREDDER/GRANULATOR OPERATOR 31 Distal ERIC 59 IMPRESSION: Advanced occlusive disease on the right as above. Advanced atherosclerotic changes on the left. Monophasic waveforms left lower extremity. <Electronically signed by Gilson Sarah > 09/25/20 [id number]
[2020-09-25] MEDS: DOXYCYCLINE HYCLATE 100MG TABLET PO SCH ×2 (09:51→20:14)
[2020-09-25] MEDS: PANTOPRAZOLE 40MG TAB (PROTONIX) PO SCH (09:51)
[2020-09-25] MEDS: TAMSULOSIN 0.4 MG CAP PO SCH (09:51)
[2020-09-25] MEDS: ATORVASTATIN 20 MG TAB PO SCH (09:51)
[2020-09-25] MEDS: lisinopriL 10 MG TAB PO SCH (09:52)
[2020-09-25] MEDS: METOPROLOL TART 25 MG TABLET PO SCH ×2 (09:53→20:14)
[2020-09-25] MEDS: MAGNESIUM GLUCONATE 500 MG TAB PO SCH ×2 (09:53→20:13)
[2020-09-25] MEDS: GABAPENTIN 100 MG CAP PO SCH ×3 (09:53→20:14)
--- NOTE | 2020-09-25 09:54 | IPNPDOC ---
Date Seen The patient was seen on 09/25/20. Progress Note Patient seen and examined. I went over his ultrasound while he was having it done this morning. Unfortunately, what I thought was a patent bypass on aus cultation with Doppler was actually a large genicular collateral from the popliteal artery to the anterior tibial artery. There is no flow through the popliteal artery, no patent bypass, no flow through the tibials except trickle flow through at least stenotic anterior tibial from the genicular. Therefore, I do not think further arteriogram and intervention would be useful or successful. I discussed this with the patient while he was down and ultrasound. At this point, we will forego the arteriogram and recommend amputation. I went over the risks benefits and alternatives with him and he is agreeable to proceed. I do not feel he has no flow to heal a below-knee amputation we will proceed with a right above-knee amputation. I've discussed this with my surgery scheduler and the OR, and the soonest we could get this scheduled is Friday. Therefore, I've rescinded his npo order for today. We will plan to proceed on Friday. We appreciate the opportunity to participate in the care of this patient. VS, I&O, 24H, Fishbone Vital Signs/I&O Vital Signs Date Time Temp Pulse Resp B/P (MAP) Pulse Ox O2 Delivery O2 Flow Rate FiO2 09/25/20 06:00 98.7 63 20 122/56 (78) 98 Room Air I&O- Last 24 Hours up to 6 AM 09/25/20 06:00 Intake Total 640 ml Output Total 1600 ml Balance -960 ml Laboratory Data 24H LABS Laboratory Tests 2 09/24/20 12:02: Bedside Glucose (Misc Panel) 115H 09/24/20 16:43: Bedside Glucose (Misc Panel) 180H 09/24/20 20:56: Bedside Glucose (Misc Panel) 201H 09/25/20 05:04: Bedside Glucose (Misc Panel) 135H Microbiology Microbiology 09/23/20 Wound Culture - Preliminary, Resulted Klebsiella Oxytoca Staphylococcus Sp Coag Neg Corynebacterium Species 09/23/20 Blood Culture - Preliminary, Resulted No Growth after 48 hours. All Specime... BINDU VIZCAINO MD Sep 25, 2020 09:54
[2020-09-25 10:16] LABS: BASO % 0.2 % (0.0-1.0); EOS # 0.1 10^3/uL (0.0-0.5); EOS % 1.9 % (0.0-3.0); HEMOGLOBIN 8.4 g/dl (13.5-17.5); LYMPH # 1.2 10^3/uL (1.5-5.0); LYMPH % 20.3 % (24.0-44.0); MEAN CORPUSCULAR HEMOGLOBIN 28.4 pg (27.0-33.0); MEAN CORPUSCULAR HGB CONC 31.1 g/dl (32.0-36.5); MEAN CORPUSCULAR VOLUME 91.2 fl (80.0-96.0); MONO # 0.5 10^3/uL (0.0-0.8); MONO % 8.6 % (0.0-5.0); NEUTROPHILS # 3.8 10^3/uL (1.5-8.5); NEUTROPHILS % 65.4 % (36.0-66.0); PLATELET COUNT, AUTOMATED 265 10^3/uL (150-450); RED BLOOD COUNT 2.96 10^6/uL (4.30-6.10); WHITE BLOOD COUNT 5.8 10^3/uL (4.0-10.0)
[2020-09-25 10:53] LABS: BLOOD UREA NITROGEN 18 MG/DL (7-18); CALCIUM LEVEL 8.1 MG/DL (8.8-10.2); CARBON DIOXIDE LEVEL 28 MEQ/L (21-32); CHLORIDE LEVEL 105 MEQ/L (98-107); CREATININE FOR GFR 1.18 MG/DL (0.70-1.30); GLOMERULAR FILTRATION RATE > 60.0 (>35); GLUCOSE, FASTING 132 MG/DL (70-100); MAGNESIUM LEVEL 1.4 MG/DL (1.8-2.4); POTASSIUM SERUM 4.2 MEQ/L (3.5-5.1); SODIUM LEVEL 138 MEQ/L (136-145)
[2020-09-25] MEDS ORDERED: MAGNESIUM GLUCONATE 500 MG TAB PO SCH (12:00)
[2020-09-25] MEDS ORDERED: MAG SULF 1GM/100ML (MAG RUN) 1 GM in IV 1 EA IV ONE (12:00)
[2020-09-25] MEDS: traMADol 50 MG TAB PO PRN ×2 (12:32→22:46)
--- NOTE | 2020-09-25 16:33 | IPNPDOC ---
Text Note Date of Service The patient was seen on 09/25/20. NOTE Subjective: No any acute events overnight. Patient continues to complain of the right leg pain. Objective: GENERAL APPEARANCE: NAD HEENT: no scleral icterus, no JVD, EOMI CARDIOVASCULAR: Irregularly irregular LUNGS: CTA ABDOMEN: soft & not tender w palpitation MUSCULOSKELETAL: Tenderness (right anterior tibial area tenderness), Other (MULTIPLE WOUNDS RIGHT LOWER EXTREMITY MEASURING 5.0 CM X 2.8 CM, 1.2 CM X 0.8 CM AND 2.2 CM X) INTEGUMENT: no generalized palor NEUROLOGICAL: cranial nerve function from 2-12 intact intact, follows commands, speech not dysarthric Assessment/Plan Patient is 85 years old male with past mental history of hypertension, type 2 diabetes, coronary artery diseases, atrial fibrillation, peripheral vascular diseases with palliative care involving his right lower extremity with 3 arterial wounds presented to the hospital with altered mental status. 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 In ER patient was found to have no leukocytosis, hemoglobin 8.1 Creatinine 8.4, glucose level of 60. CT head negative for acute infarct or hemorrhage, right distal leg x-ray showed Pretibial and anterior periarticular soft tissue swelling the distal calf and ankle. Of note patient followed for palliative care involving his right lower extremity [address] Guadalupe , patient on chronic therapy with doxycycline. Previously patient declined right AKA Problems (1) Hypoglycemia Resolved Patient received D50 with positive effect on admission Hyperglycemia could be secondary to infection, oral diabetes medication Patient doesn't have leukocytosis, not febrile (2) Diabetes mellitus Insulin sliding scale await HbA1c (3) Leg wound, right 2/2 atherosclerosis in the [place] arteries nonhealing wounds of the right first toe and right dorsal foot Dr. Strauss after reviewing Doppler ultrasound recommended right AKA. Most likely this surgery scheduled on Friday afternoon. Continue suppressive dose of doxycycline (4) Arterial insufficiency of lower extremity Patient has severe peripheral vascular diseases with unhealed wound of right leg. Aspirin and statin added to medical regimen (5) Metabolic encephalopathy Resolved Possibly Most likely secondary to hypoglycemia superimposed with polypharmacy. DC gabapentin Patient afebrile, does not have leukocytosis, patient was on chronic doxycycline therapy Blood culture negative (6) Atrial fibrillation Eliquis on hold due to possible right AKA VS,Chad, I+O VS, Fishbone, I+O Laboratory Tests 09/25/20 09:51 Vital Signs Date Time Temp Pulse Resp B/P (MAP) Pulse Ox O2 Delivery O2 Flow Rate FiO2 09/25/20 14:00 97.3 69 18 98 Room Air 09/25/20 09:53 152/66 I&O- Last 24 Hours up to 6 AM 09/25/20 06:00 Intake Total 640 ml Output Total 1600 ml Balance -960 ml ERAN NETTLES DO Sep 25, 2020 16:33
[2020-09-25 22:00] VITALS: BP 118/66
[2020-09-26] MEDS: traMADol 50 MG TAB PO PRN ×2 (05:57→16:15)
[2020-09-26 06:00] VITALS: BP 119/59
[2020-09-26 06:47] LABS: HEMATOCRIT 26.2 % (42.0-52.0); HEMOGLOBIN 8.3 g/dl (13.5-17.5); MEAN CORPUSCULAR HEMOGLOBIN 28.8 pg (27.0-33.0); MEAN CORPUSCULAR HGB CONC 31.7 g/dl (32.0-36.5); PLATELET COUNT, AUTOMATED 282 10^3/uL (150-450); RED BLOOD COUNT 2.88 10^6/uL (4.30-6.10); WHITE BLOOD COUNT 6.2 10^3/uL (4.0-10.0)
[2020-09-26 07:04] LABS: ANISOCYTOSIS 1+; LYMPHOCYTES 23 % (16-44); METAMYELOCYTES 1 % (0-0); MONOCYTES 4 % (0-5); NEUTROPHILS 71 % (28-66); PLATELET ESTIMATE NORMAL (NORMAL)
[2020-09-26 07:05] LABS: BLOOD UREA NITROGEN 21 MG/DL (7-18); CALCIUM LEVEL 8.1 MG/DL (8.8-10.2); CARBON DIOXIDE LEVEL 26 MEQ/L (21-32); CHLORIDE LEVEL 103 MEQ/L (98-107); CREATININE FOR GFR 1.16 MG/DL (0.70-1.30); GLOMERULAR FILTRATION RATE > 60.0 (>35); GLUCOSE, FASTING 145 MG/DL (70-100); MAGNESIUM LEVEL 1.5 MG/DL (1.8-2.4); OVALOCYTES 1+; POTASSIUM SERUM 4.5 MEQ/L (3.5-5.1); SODIUM LEVEL 135 MEQ/L (136-145)
[2020-09-26] MEDS: HumaLOG INSULIN (NovoLOG) PER UNIT SC SCH ×4 (07:30→20:53)
[2020-09-26] MEDS: ASPIRIN 81 MG CHEW TABLET PO SCH (08:38)
[2020-09-26] MEDS: lisinopriL 10 MG TAB PO SCH (08:39)
[2020-09-26] MEDS: ATORVASTATIN 20 MG TAB PO SCH (08:39)
[2020-09-26] MEDS: MAGNESIUM GLUCONATE 500 MG TAB PO SCH ×2 (08:39→20:51)
[2020-09-26] MEDS: TAMSULOSIN 0.4 MG CAP PO SCH (08:39)
[2020-09-26] MEDS: DOXYCYCLINE HYCLATE 100MG TABLET PO SCH ×2 (08:39→20:51)
[2020-09-26] MEDS: GABAPENTIN 100 MG CAP PO SCH ×3 (08:40→20:51)
[2020-09-26] MEDS: METOPROLOL TART 25 MG TABLET PO SCH ×2 (08:40→20:53)
[2020-09-26] MEDS: PANTOPRAZOLE 40MG TAB (PROTONIX) PO SCH (08:40)
[2020-09-26] MEDS: HEPARIN SOD (PORCINE) 5000UNITS/ML 1ML VIAL/SYRINGE SC SCH ×2 (08:41→20:49)
--- NOTE | 2020-09-26 08:55 | IPNPDOC ---
Text Note Date of Service The patient was seen on 09/26/20. NOTE Vascular Surgery Dr Fraser. Patient seen and examined. The pt's ultrasound was reviewed with the patient by Dr. Fraser. While he was having it done this morning. He has a large genicular collateral from the popliteal artery to the anterior tibial artery. There is no flow through the popliteal artery, no patent bypass, no flow through the tibials except trickle flow through at least stenotic anterior tibial from the genicular. Therefore, it was not felt that further arteriogram and intervention would be useful or successful. Dr Fraser discussed this with the patient while he was down in ultrasound. Dr. Fraser discussed with the patient that she would recommend amputation. He has no flow to heal a below-knee amputation we will proceed with a right above-knee amputation. This morning, I again went over the procedure, risks benefits and alternatives with him and he does NOT wish to proceed at this time. At this time the pt does NOT wish to proceed Friday. I have relayed this to Dr. Fraser. We appreciate the opportunity to participate in the care of this patient. VS,Fishbone, I+O VS, Fishbone, I+O Laboratory Tests 09/25/20 09:51 09/26/20 06:11 Vital Signs Date Time Temp Pulse Resp B/P (MAP) Pulse Ox O2 Delivery O2 Flow Rate FiO2 09/26/20 08:40 62 135/71 09/26/20 06:27 19 09/26/20 06:00 96.8 100 Room Air I&O- Last 24 Hours up to 6 AM 09/26/20 05:59 Intake Total 1330 ml Output Total 1850 ml Balance -520 ml Beth Deshpande Sep 26, 2020 08:55
--- NOTE | 2020-09-26 09:39 | IPNPDOC ---
Date Seen The patient was seen on 09/26/20. Progress Note I spoke with the patient yesterday, and he was agreeable to proceed with right above-knee amputation, but today he is having second thoughts. He also refused an amputation previously in [place]. I think this is a very difficult decision for him, and we understand that. At the moment, he does not have wet gangrene or ascending infection that necessitates an urgent amputation. This may occur in the future, but we are not in that situation today. He does not have adequate blood flow to heal the dorsal foot wound or the first toe, and over time the wounds could deteriorate. How much time is of course dependent on many factors. I spoke with the patient's daughter and at length today. I described the findings on arterial duplex. I discussed my recommendations for right above-knee amputation as he does not have adequate blood flow to heal a below knee amputation. I also discussed that this is not urgent at the moment. If the patient needs more time to think about this, he can continue with local wound care with Dr. Guadalupe. However, I did caution them that I will be out of town for 2 weeks after this week, and that the only time I could fit the surgery into my very heavy schedule this week is Friday afternoon. If they do not want to proceed with surgery on Friday, we can see him back prn electively as an outpatient to discuss amputation if he changes his mind. We had a long discussion today and all of their questions were answered. I'm going to leave the patient on the schedule for Friday for now until they make a final decision. We appreciate the opportunity to participate in the care of this patient. VS, I&O, 24H, Fishbone Vital Signs/I&O Vital Signs Date Time Temp Pulse Resp B/P (MAP) Pulse Ox O2 Delivery O2 Flow Rate FiO2 09/26/20 08:40 62 135/71 09/26/20 06:27 19 09/26/20 06:00 96.8 100 Room Air I&O- Last 24 Hours up to 6 AM 09/26/20 06:00 Intake Total 1320 ml Output Total 2275 ml Balance -955 ml Laboratory Data 24H LABS Laboratory Tests 2 09/25/20 09:51: Immature Granulocyte % (Auto) 3.6H, Neutrophils (%) (Auto) 65.4, Lymphocytes (%) (Auto) 20.3L, Monocytes (%) (Auto) 8.6H, Eosinophils (%) (Auto) 1.9, Basophils (%) (Auto) 0.2, Neutrophils # (Auto) 3.8, Lymphocytes # (Auto) 1.2L, Monocytes # (Auto) 0.5, Eosinophils # (Auto) 0.1, Basophils # (Auto) 0.0, Nucleated Red Blood Cells % (auto) 0.0, Anion Gap 5L, Glomerular Filtration Rate > 60.0, Calcium Level 8.1L, Magnesium Level 1.4L 09/25/20 11:45: Bedside Glucose (Misc Panel) 237H 09/25/20 16:35: Bedside Glucose (Misc Panel) 145H 09/25/20 20:39: Bedside Glucose (Misc Panel) 163H 09/26/20 06:11: Immature Granulocyte % (Auto) , Neutrophils (%) (Auto) , Nucleated Red Blood Cells % (auto) 0.0, Neutrophils 71H, Band Neutrophils 1, Lymphocytes (Manual) 23, Monocytes (Manual) 4, Metamyelocytes 1H, Anisocytosis 1+, Ovalocytes 1+, Platelet Estimate NORMAL, Anion Gap 6L, Glomerular Filtration Rate > 60.0, Calcium Level 8.1L, Magnesium Level 1.5L CBC/BMP Laboratory Tests 09/25/20 09:51 09/26/20 06:11 Microbiology Microbiology 09/23/20 Wound Culture - Preliminary, Resulted Klebsiella Oxytoca Staphylococcus Sp Coag Neg#2 Corynebacterium Species 09/23/20 Blood Culture - Preliminary, Resulted No Growth after 72 hours. All specime... BINDU VIZCAINO MD Sep 26, 2020 09:38
[2020-09-26] MEDS: PERCOCET 5MG/325MG TAB PO PRN ×2 (11:46→20:55)
[2020-09-26 14:00] VITALS: BP 120/58
--- NOTE | 2020-09-26 16:50 | IPNPDOC ---
Text Note Date of Service The patient was seen on 09/26/20. NOTE Subjective: No any acute events overnight. Patient stated that he needs more time to reconsider amputation Objective: GENERAL APPEARANCE: NAD HEENT: no scleral icterus, no JVD, EOMI CARDIOVASCULAR: Irregularly irregular LUNGS: CTA ABDOMEN: soft & not tender w palpitation MUSCULOSKELETAL: Tenderness (right anterior tibial area tenderness), Other (MULTIPLE WOUNDS RIGHT LOWER EXTREMITY MEASURING 5.0 CM X 2.8 CM, 1.2 CM X 0.8 CM AND 2.2 CM X) INTEGUMENT: no generalized palor NEUROLOGICAL: cranial nerve function from 2-12 intact intact, follows commands, speech not dysarthric Assessment/Plan Patient is 85 years old male with past mental history of hypertension, type 2 diabetes, coronary artery diseases, atrial fibrillation, peripheral vascular diseases with palliative care involving his right lower extremity with 3 arterial wounds presented to the hospital with altered mental status. 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 In ER patient was found to have no leukocytosis, hemoglobin 8.1 Creatinine 8.4, glucose level of 60. CT head negative for acute infarct or hemorrhage, right distal leg x-ray showed Pretibial and anterior periarticular soft tissue swelling the distal calf and ankle. Of note patient followed for palliative care involving his right lower extremity [address] Guadalupe , [facility] on chronic therapy with doxycycline. Previously patient declined right AKA Problems (1) Hypoglycemia Resolved Patient received D50 with positive effect on admission Hyperglycemia could be secondary to infection, oral diabetes medication Patient doesn't have leukocytosis, not febrile (2) Diabetes mellitus Insulin sliding scale HbA1c 7.5 (3) Leg wound, right 2/2 atherosclerosis in the [place] arteries nonhealing wounds of the right first toe and right dorsal foot Dr. Strauss after reviewing Doppler ultrasound recommended right AKA. Most likely this surgery scheduled on Friday afternoon. Continue suppressive dose of doxycycline (4) Arterial insufficiency of lower extremity Patient has severe peripheral vascular diseases with unhealed wound of right leg. Aspirin and statin added to medical regimen (5) Metabolic encephalopathy Resolved Possibly Most likely secondary to hypoglycemia superimposed with polypharmacy. DC gabapentin Patient afebrile, does not have leukocytosis, patient was on chronic doxycycline therapy Blood culture negative (6) Atrial fibrillation Eliquis on hold due to possible right AKA VS,Fishbone, I+O VS, Fishbone, I+O Laboratory Tests 09/26/20 06:11 Vital Signs Date Time Temp Pulse Resp B/P (MAP) Pulse Ox O2 Delivery O2 Flow Rate FiO2 09/26/20 16:15 16 09/26/20 14:00 97.0 60 120/58 (78) 98 Room Air I&O- Last 24 Hours up to 6 AM 09/26/20 06:00 Intake Total 1320 ml Output Total 2275 ml Balance -955 ml ERAN NETTLES DO Sep 26, 2020 16:50
[2020-09-26 22:00] VITALS: BP 136/68
[2020-09-27] VITALS (10 sets, daily range): BP systolic 120–145; BP diastolic 49–72
[2020-09-27] MEDS: traMADol 50 MG TAB PO PRN (00:27)
[2020-09-27 06:44] LABS: BASO % 0.3 % (0.0-1.0); EOS # 0.2 10^3/uL (0.0-0.5); EOS % 3.7 % (0.0-3.0); HEMOGLOBIN 8.3 g/dl (13.5-17.5); LYMPH # 1.7 10^3/uL (1.5-5.0); MEAN CORPUSCULAR HEMOGLOBIN 27.3 pg (27.0-33.0); MEAN CORPUSCULAR HGB CONC 29.6 g/dl (32.0-36.5); MEAN CORPUSCULAR VOLUME 92.1 fl (80.0-96.0); MONO # 0.6 10^3/uL (0.0-0.8); MONO % 9.9 % (0.0-5.0); NEUTROPHILS # 3.1 10^3/uL (1.5-8.5); NEUTROPHILS % 53.4 % (36.0-66.0); PLATELET COUNT, AUTOMATED 288 10^3/uL (150-450); RED BLOOD COUNT 3.04 10^6/uL (4.30-6.10); WHITE BLOOD COUNT 5.9 10^3/uL (4.0-10.0)
[2020-09-27 07:06] LABS: CALCIUM LEVEL 8.5 MG/DL (8.8-10.2); CREATININE FOR GFR 1.23 MG/DL (0.70-1.30); GLOMERULAR FILTRATION RATE 59.7 (>35); MAGNESIUM LEVEL 1.5 MG/DL (1.8-2.4); POTASSIUM SERUM 4.6 MEQ/L (3.5-5.1)
[2020-09-27] MEDS: HumaLOG INSULIN (NovoLOG) PER UNIT SC SCH ×4 (07:16→21:00)
[2020-09-27] MEDS: ATORVASTATIN 20 MG TAB PO SCH (08:22)
[2020-09-27] MEDS: ASPIRIN 81 MG CHEW TABLET PO SCH (08:22)
[2020-09-27] MEDS: DOXYCYCLINE HYCLATE 100MG TABLET PO SCH ×2 (08:22→20:20)
[2020-09-27] MEDS: PANTOPRAZOLE 40MG TAB (PROTONIX) PO SCH (08:23)
[2020-09-27] MEDS: TAMSULOSIN 0.4 MG CAP PO SCH (08:23)
[2020-09-27] MEDS: METOPROLOL TART 25 MG TABLET PO SCH ×2 (08:23→20:23)
[2020-09-27] MEDS: MAGNESIUM GLUCONATE 500 MG TAB PO SCH ×2 (08:23→20:22)
[2020-09-27] MEDS: GABAPENTIN 100 MG CAP PO SCH ×3 (08:23→20:20)
[2020-09-27] MEDS: lisinopriL 10 MG TAB PO SCH (08:24)
[2020-09-27] MEDS: HEPARIN SOD (PORCINE) 5000UNITS/ML 1ML VIAL/SYRINGE SC SCH ×2 (08:25→20:21)
--- NOTE | 2020-09-27 08:43 | IPNPDOC ---
Text Note Date of Service The patient was seen on 09/27/20. NOTE Vascular Surgery Dr Fraser. Patient seen and examined. The pt's ultrasound was reviewed with the patient by Dr. Fraser previously. He has a large genicular collateral from the popliteal artery to the anterior tibial artery. There is no flow through the popliteal artery, no patent bypass, no flow through the tibials except trickle flow through at least stenotic anterior tibial from the genicular. Therefore, it was not felt that further arteriogram and intervention would be useful or successful. Dr Fraser has discussed this with the patient and his family. Dr. Fraser discussed with the patient that she would recommend above knee amputation. He has no flow to heal a below-knee amputation. This morning, I discussed again with the pt and he would like to proceed. I again went over the procedure, risks benefits and alternatives with him. Patient wishes to proceed, he is on the schedule for this afternoon. I have relayed this to Dr. Fraser. Informed consent is obtained and placed with the chart. Transfusion consent is obtained and placed with the chart. The patient was nothing by mouth after midnight. Hold a.m. dose of heparin SQ. Ancef 2 g IV preoperatively ordered. We appreciate the opportunity to participate in the care of this patient. VS,Chad, I+O VS, Chad, I+O Laboratory Tests 09/27/20 05:57 Vital Signs Date Time Temp Pulse Resp B/P (MAP) Pulse Ox O2 Delivery O2 Flow Rate FiO2 09/27/20 08:24 127/63 09/27/20 08:23 61 09/27/20 06:00 98.4 18 94 Room Air I&O- Last 24 Hours up to 6 AM 09/27/20 06:00 Intake Total 660 ml Output Total 1850 ml Balance -1190 ml Beth Deshpande Sep 27, 2020 08:43
[2020-09-27] MEDS ORDERED: ceFAZolin SOD 2 GM in IV 1 EA IV ONE (09:00)
--- NOTE | 2020-09-27 09:16 | IPNPDOC ---
Date Seen The patient was seen on 09/27/20. Progress Note Pt seen and examined. He has decided to proceed with R AKA. Risks benefits and alternatives were explained and he is agreeable to proceed and informed consent obtained. Hold am heparin. Ancef 2G IV preop. NPO. We appreciate the opportunity to participate in the care of this patient. VS, I&O, 24H, Fishbone Vital Signs/I&O Vital Signs Date Time Temp Pulse Resp B/P (MAP) Pulse Ox O2 Delivery O2 Flow Rate FiO2 09/27/20 08:24 127/63 09/27/20 08:23 61 09/27/20 06:00 98.4 18 94 Room Air I&O- Last 24 Hours up to 6 AM 09/27/20 06:00 Intake Total 660 ml Output Total 1850 ml Balance -1190 ml Laboratory Data 24H LABS Laboratory Tests 2 09/26/20 11:23: Bedside Glucose (Misc Panel) 231H 09/26/20 16:57: Bedside Glucose (Misc Panel) 118H 09/26/20 20:51: Bedside Glucose (Misc Panel) 227H 09/27/20 05:57: Immature Granulocyte % (Auto) 3.7H, Neutrophils (%) (Auto) 53.4, Lymphocytes (%) (Auto) 29.0, Monocytes (%) (Auto) 9.9H, Eosinophils (%) (Auto) 3.7H, Basophils (%) (Auto) 0.3, Neutrophils # (Auto) 3.1, Lymphocytes # (Auto) 1.7, Monocytes # (Auto) 0.6, Eosinophils # (Auto) 0.2, Basophils # (Auto) 0.0, Nucleated Red Blood Cells % (auto) 0.0, Anion Gap 4L, Glomerular Filtration Rate 59.7, Calcium Level 8.5L, Magnesium Level 1.5L CBC/BMP Laboratory Tests 09/27/20 05:57 Microbiology Microbiology 09/23/20 Wound Culture - Final, Complete Klebsiella Oxytoca Staphylococcus Epidermidis Staphylococcus Sp Coag Neg#2 Corynebacterium Species 09/23/20 Blood Culture - Preliminary, Resulted No Growth after 72 hours. All specime... BINDU VIZCAINO MD Sep 27, 2020 09:16
[2020-09-27] MEDS ORDERED: propofoL 200 MG/20 ML VIAL As Ordered ONE (14:09)
[2020-09-27] MEDS ORDERED: fentaNYL 100 MCG/2 ML INJECTION (J3010) As Ordered ONE ×3 (14:09→16:41)
[2020-09-27] MEDS ORDERED: ROCURONIUM BROMIDE 50 MG/5 ML VIAL As Ordered ONE (14:09)
[2020-09-27] MEDS ORDERED: LIDOCAINE 2% 100MG/5ML SDV (FOR ANES.) As Ordered ONE (14:09)
[2020-09-27] MEDS ORDERED: LIDOCAINE 2% W/EPINEPHRINE 20ML VIAL **PRES FREE As Ordered ONE (14:15)
[2020-09-27] MEDS ORDERED: PHENYLephrine HCL 500 MCG/5 ML (100MCG/ML) SYRINGE (J2370) As Ordered ONE (14:38)
[2020-09-27] MEDS ORDERED: ePHEDrine SULFATE 25 MG/5 ML(5MG/ML) SYRINGE As Ordered ONE (14:38)
[2020-09-27] MEDS ORDERED: ceFAZolin 2 GM/D5W 50 ML IV BAG (J0690 PER 500MG) As Ordered ONE (14:40)
[2020-09-27] MEDS ORDERED: SUGAMMADEX SODIUM 500 MG/5 ML VIAL (BRIDION) As Ordered ONE (15:16)
[2020-09-27] MEDS ORDERED: ONDANSETRON 4MG/2ML VIAL As Ordered ONE (15:22)
--- NOTE | 2020-09-27 16:21 | ROOPDOC ---
[facility] Report Of Operation Report of Operation DATE OF PROCEDURE: 09/27/20 PREPROCEDURE DIAGNOSES: Atherosclerosis in the [place] arteries with nonhealing wounds right foot POSTPROCEDURE DIAGNOSES: Same. PROCEDURE: Right above-knee amputation SURGEON: Bindu Fraser MD ANESTHESIA: Gen. anesthesia and local INDICATION FOR PROCEDURE: This is a very pleasant 85-year-old gentleman with end-stage atherosclerosis of the [place] arteries and no further options for revascularization in the right lower extremity who has severe pain in the right lower extremity, dorsal foot wound, first toe wound, nonhealing. After extensive discussions with the patient by other providers in the past and then again on this admission, he is agreeable to proceed with right above-knee amputation. He does not have adequate blood flow for a below-knee amputation. Risks benefits and alternatives were explained and he is agreeable and informed consent was obtained. I've also spoken extensively with the patient's and daughter and they are agreeable as well. REPORT OF OPERATION: The patient was brought to the OR in stable condition and placed supine on your table. General anesthesia and antibiotics were administered without convocation. His right lower extremity was prepped and draped in a sterile fashion. A timeout was performed. An Esmarch was used to exsanguinate the leg and tourniquet was inflated to 250 mmHg. The [place] incision was fashioned at the knee with the skin knife. This was carried down to the subcutaneous tissue fascia and muscle with Bovie cautery. The popliteal artery and vein were suture ligated and divided. Dissection continued until we has circumferential exposure of the femur and we elevated the periosteum and did a high transection of the femur. The posterior flap was completed with the Bovie cautery. The tourniquet was released and Bovie cautery was used for hemostasis and the soft tissue. A rasp was used to smooth the bone. We irrigated with copious amounts of saline. The deep fascial layers were approximated anterior and posterior with [id number] Vicryl sutures. The superficial fascia was closed with [id number] Vicryl sutures making sure there were no gaps in the suture. We then irrigated the skin edges and nylon mattress sutures were used to approximate the skin edges. The skin closure was then completed with lucius. The incision was clean and dried. Xeroform fluffs kerlix were used to dress the incision and an Andrew wrap was placed as a final dressing. The patient was allowed to awaken from anesthesia and was taken to recovery in stable condition. He tolerated the procedure and the anesthesia well. SPECIMEN: Right leg sent for pathology ESTIMATED BLOOD LOSS: Approximately 30 mL. COMPLICATIONS: None. PLAN: Patient can resume preprocedure diet and medications. We will order physical and occupational therapy and work towards and ARU or other rehab admission at discharge. We appreciate the opportunity to produce patent care of this patient. BINDU FRASER MD Sep 27, 2020 16:20
--- NOTE | 2020-09-27 16:29 | IPNPDOC ---
Text Note Date of Service The patient was seen on 09/27/20. NOTE Subjective: No any acute events overnight. Patient decided to proceed with right above knee amputation Objective: GENERAL APPEARANCE: NAD HEENT: no scleral icterus, no JVD, EOMI CARDIOVASCULAR: Irregularly irregular LUNGS: CTA ABDOMEN: soft & not tender w palpitation MUSCULOSKELETAL: Tenderness (right anterior tibial area tenderness), Other (MULTIPLE WOUNDS RIGHT LOWER EXTREMITY MEASURING 5.0 CM X 2.8 CM, 1.2 CM X 0.8 CM AND 2.2 CM X) INTEGUMENT: no generalized palor NEUROLOGICAL: cranial nerve function from 2-12 intact intact, follows commands, speech not dysarthric Assessment/Plan Patient is 85 years old male with past mental history of hypertension, type 2 diabetes, coronary artery diseases, atrial fibrillation, peripheral vascular diseases with palliative care involving his right lower extremity with 3 arterial wounds presented to the hospital with altered mental status. 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 In ER patient was found to have no leukocytosis, hemoglobin 8.1 Creatinine 8.4, glucose level of 60. CT head negative for acute infarct or hemorrhage, right distal leg x-ray showed Pretibial and anterior periarticular soft tissue swelling the distal calf and ankle. Of note patient followed for palliative care involving his right lower extremity [address] Guadalupe , patient on chronic therapy with doxycycline. Previously patient declined right AKA Problems (1) Hypoglycemia Resolved Patient received D50 with positive effect on admission Hyperglycemia could be secondary to infection, oral diabetes medication Patient doesn't have leukocytosis, not febrile (2) Diabetes mellitus Insulin sliding scale HbA1c 7.5 (3) Leg wound, right 2/2 atherosclerosis in the [place] arteries nonhealing wounds of the right first toe and right dorsal foot Dr. Strauss after reviewing Doppler ultrasound recommended right AKA. Continue suppressive dose of doxycycline (4) Arterial insufficiency of lower extremity Patient has severe peripheral vascular diseases with unhealed wound of right leg. Aspirin and statin added to medical regimen (5) Metabolic encephalopathy Resolved Possibly Most likely secondary to hypoglycemia superimposed with polypharmacy. DC gabapentin Patient afebrile, does not have leukocytosis, patient was on chronic doxycycline therapy Blood culture negative (6) Atrial fibrillation Eliquis on hold due to right AKA VS,Fishbone, I+O VS, Fishbone, I+O Laboratory Tests 09/27/20 05:57 Vital Signs Date Time Temp Pulse Resp B/P (MAP) Pulse Ox O2 Delivery O2 Flow Rate FiO2 09/27/20 13:30 98.7 54 16 127/63 (84) 96 Room Air I&O- Last 24 Hours up to 6 AM 09/27/20 06:00 Intake Total 660 ml Output Total 1850 ml Balance -1190 ml ERAN NETTLES DO Sep 27, 2020 16:29
[2020-09-27] MEDS ORDERED: LR 1,000 ML IV SCH (16:30)
[2020-09-27] MEDS ORDERED: ONDANSETRON 4MG/2ML VIAL IV PRN (16:30)
[2020-09-27] MEDS ORDERED: oxyCODONE 5MG TAB PO PRN (16:30)
[2020-09-27] MEDS ORDERED: fentaNYL 100 MCG/2 ML INJECTION (J3010) IV PRN (16:30)
[2020-09-27] MEDS ORDERED: oxyCODONE 5MG TAB As Ordered ONE (16:41)
[2020-09-27] MEDS ORDERED: PERCOCET 5MG/325MG TAB PO PRN (17:30)
[2020-09-27] MEDS: PERCOCET 5MG/325MG TAB PO PRN (20:23)
[2020-09-28] MEDS: traMADol 50 MG TAB PO PRN (03:58)
[2020-09-28 06:00] VITALS: BP 146/69
[2020-09-28 06:37] LABS: HEMATOCRIT 27.3 % (42.0-52.0); HEMOGLOBIN 8.2 g/dl (13.5-17.5); MEAN CORPUSCULAR HEMOGLOBIN 27.8 pg (27.0-33.0); MEAN CORPUSCULAR VOLUME 92.5 fl (80.0-96.0); PLATELET COUNT, AUTOMATED 273 10^3/uL (150-450); RED BLOOD COUNT 2.95 10^6/uL (4.30-6.10); WHITE BLOOD COUNT 7.2 10^3/uL (4.0-10.0)
[2020-09-28 06:53] LABS: ATYPICAL LYMPH 1 % (0-5); EOSINOPHILS 1 % (0-3); LYMPHOCYTES 13 % (16-44); METAMYELOCYTES 2 % (0-0); MONOCYTES 5 % (0-5); NEUTROPHILS 78 % (28-66); PLATELET ESTIMATE NORMAL (NORMAL)
[2020-09-28 06:54] LABS: ANISOCYTOSIS 1+; HYPOCHROMASIA 1+; OVALOCYTES 1+; POIKILOCYTOSIS 1+
[2020-09-28 07:13] LABS: BLOOD UREA NITROGEN 17 MG/DL (7-18); CARBON DIOXIDE LEVEL 26 MEQ/L (21-32); CHLORIDE LEVEL 102 MEQ/L (98-107); CREATININE FOR GFR 1.14 MG/DL (0.70-1.30); GLOMERULAR FILTRATION RATE > 60.0 (>35); GLUCOSE, FASTING 160 MG/DL (70-100); MAGNESIUM LEVEL 1.5 MG/DL (1.8-2.4); POTASSIUM SERUM 4.7 MEQ/L (3.5-5.1); SODIUM LEVEL 134 MEQ/L (136-145)
[2020-09-28] MEDS: HEPARIN SOD (PORCINE) 5000UNITS/ML 1ML VIAL/SYRINGE SC SCH (08:16)
[2020-09-28] MEDS: HumaLOG INSULIN (NovoLOG) PER UNIT SC SCH ×2 (08:16→12:42)
[2020-09-28] MEDS: ASPIRIN 81 MG CHEW TABLET PO SCH (08:17)
[2020-09-28] MEDS: ATORVASTATIN 20 MG TAB PO SCH (08:17)
[2020-09-28] MEDS: MAGNESIUM GLUCONATE 500 MG TAB PO SCH (08:17)
[2020-09-28] MEDS: PANTOPRAZOLE 40MG TAB (PROTONIX) PO SCH (08:17)
[2020-09-28 08:18] VITALS: BP 145/70
[2020-09-28] MEDS: METOPROLOL TART 25 MG TABLET PO SCH (08:18)
[2020-09-28] MEDS: DOXYCYCLINE HYCLATE 100MG TABLET PO SCH (08:18)
[2020-09-28] MEDS: GABAPENTIN 100 MG CAP PO SCH (08:18)
[2020-09-28] MEDS: lisinopriL 10 MG TAB PO SCH (08:18)
[2020-09-28] MEDS: TAMSULOSIN 0.4 MG CAP PO SCH (08:18)
[2020-09-28] MEDS ORDERED: MAGNESIUM CHLORIDE 64 MG TABCR (SLO MAG) PO SCH (09:00)
--- NOTE | 2020-09-28 09:35 | IPNPDOC ---
Date Seen The patient was seen on 09/28/20. Progress Note Patient seen and examined postoperative day one status post right AKA. He is doing well. The incision has mild serosanguineous drainage and minimal bruising along the inferior edge, but overall looks good. The stump was thoroughly cleaned and redressed with Xeroform, 4 x 4's, Kerlix, and an Andrew wrap. It was elevated on a pillow to diminish swelling. The patient tolerated this well. He says his pain is a bit better today than it was preop, but he still has some surgical incisional pain. I told him that over the next couple days, that pain should get much better, but the first 2 days are usually the worst. He says he feels pretty good overall. PT OT were ordered yesterday along with an ARU consult, and we will see how the patient does and whether this is an option or if he will require long term at discharge. Continue with analgesia when necessary. Encourage high-protein diet to help with wound healing. The patient had very little muscle, and likely has protein malnutrition. Encouraging protein intake will help with healing of his stump. We appreciate the opportunity to produce pain in the care of this patient. VS, I&O, 24H, Fishbone Vital Signs/I&O Vital Signs Date Time Temp Pulse Resp B/P (MAP) Pulse Ox O2 Delivery O2 Flow Rate FiO2 09/28/20 08:18 74 145/70 09/28/20 06:00 99.5 18 95 Room Air 09/27/20 16:15 2 I&O- Last 24 Hours up to 6 AM 09/28/20 06:00 Intake Total 1580 ml Output Total 1780 ml Balance -200 ml Laboratory Data 24H LABS Laboratory Tests 2 09/27/20 11:29: Bedside Glucose (Misc Panel) 130H 09/27/20 16:26: Bedside Glucose (Misc Panel) 183H 09/27/20 17:41: Bedside Glucose (Misc Panel) 166H 09/27/20 20:06: Bedside Glucose (Misc Panel) 196H 09/28/20 05:45: Immature Granulocyte % (Auto) , Neutrophils (%) (Auto) , Nucleated Red Blood Cells % (auto) 0.0, Neutrophils 78H, Lymphocytes (Manual) 13L, Monocytes (Manual) 5, Eosinophils (Manual) 1, Metamyelocytes 2H, Atypical Lymphocytes 1, Hypochromasia 1+, Poikilocytosis 1+, Anisocytosis 1+, Ovalocytes 1+, Platelet Estimate NORMAL 09/28/20 05:46: Anion Gap 6L, Glomerular Filtration Rate > 60.0, Calcium Level 8.0L, Magnesium Level 1.5L CBC/BMP Laboratory Tests 09/28/20 05:45 09/28/20 05:46 Microbiology Microbiology 09/23/20 Wound Culture - Final, Complete Klebsiella Oxytoca Staphylococcus Epidermidis Staphylococcus Sp Coag Neg#2 Corynebacterium Species 09/23/20 Blood Culture - Final, Complete NO GROWTH AFTER 5 DAYS BINDU VIZCAINO MD Sep 28, 2020 09:35
[2020-09-28] MEDS: PERCOCET 5MG/325MG TAB PO PRN (10:57)
[2020-09-28 14:00] VITALS: BP 89/48
[2020-09-28] MEDS ORDERED: NS 1,000 ML IV ONE (14:15)
[2020-09-28 15:03] VITALS: BP 128/56
--- NOTE | 2020-09-28 18:31 | DS.PDOC ---
Discharge Summary General Date of Admission Sep 23, 2020 at 08:44 Date of Discharge 09/28/20 Discharge Summary PROCEDURES PERFORMED DURING STAY: Right AKA ADMITTING DIAGNOSES: Hypoglycemia Diabetes mellitus Leg wound, right Arterial insufficiency of lower extremity Metabolic encephalopathy DISCHARGE DIAGNOSES: .Hypoglycemia Diabetes mellitus Leg wound, right Arterial insufficiency of lower extremity Metabolic encephalopathy Right AKA COMPLICATIONS/CHIEF COMPLAINT: Arterial Insufficiency Of Lower Extremity, Non.... HISTORY OF PRESENT ILLNESS:Patient is 85 years old male with past mental history of hypertension, type 2 diabetes, coronary artery diseases, atrial fibrillation, peripheral vascular diseases with palliative care involving his right lower extremity with 3 arterial wounds presented to the hospital with altered mental status. According to report patient was confused since automobile tester and family brought him in ER. In ER patient was found to have no leukocytosis, hemoglobin 8.1 Creatinine 8.4, glucose level of 60. CT head negative for acute infarct or hemorrhage, right distal leg x-ray showed Pretibial and anterior periarticular soft tissue swelling the distal calf and ankle. Of note patient followed for palliative care involving his right lower extremity [address] Guadalupe , patient on chronic therapy with doxycycline. Previously patient declined right AKA HOSPITAL COURSE: During hospital stay following issue addressed (1) Hypoglycemia Resolved Patient received D50 with positive effect on admission Hyperglycemia secondary to oral diabetes medication (2) Diabetes mellitus Insulin sliding scale HbA1c 7.5 (3) Leg wound, right 2/2 atherosclerosis in the [place] arteries nonhealing wounds of the right first toe and right dorsal foot Dr. Strauss after reviewing Doppler ultrasound recommended right AKA. Right AKA was done on 09/27/20 Continue suppressive dose of doxycycline (4) Arterial insufficiency of lower extremity Patient has severe peripheral vascular diseases with unhealed wound of right leg. Aspirin and statin added to medical regimen (5) Metabolic encephalopathy Resolved Possibly Most likely secondary to hypoglycemia superimposed with polypharmacy. DC gabapentin Patient afebrile, does not have leukocytosis, patient was on chronic doxycycline therapy Blood culture negative (6) Atrial fibrillation Eliquis on hold due to right AKA DISCHARGE MEDICATIONS: Please see below. ALLERGIES: Please see below. PHYSICAL EXAMINATION ON DISCHARGE: VITAL SIGNS: Please see below. GENERAL APPEARANCE: NAD HEENT: no scleral icterus, no JVD, EOMI CARDIOVASCULAR: Irregularly irregular LUNGS: CTA ABDOMEN: soft & not tender w palpitation MUSCULOSKELETAL: Tenderness (right anterior tibial area tenderness), Other (MULTIPLE WOUNDS RIGHT LOWER EXTREMITY MEASURING 5.0 CM X 2.8 CM, 1.2 CM X 0.8 CM AND 2.2 CM X) INTEGUMENT: no generalized palor NEUROLOGICAL: cranial nerve function from 2-12 intact intact, follows commands, speech not dysarthric LABORATORY DATA: Please see below. IMAGING: [facility] NAME: LOC GUTIERREZ DATE OF : 1935 AGE: 85 SEX: M REPORT #: [id number] ROOM: [facility] TECHNOLOGIST: PRABHA DOCTOR: BINDU VIZCAINO MD Ordered for Date&Time: 09/25/20 1344 cc: [~ rep ct ivnm] Service Date&Time: 09/25/20 0910 This report is in Signed status. If this report is in a DRAFT status it has not yet been reviewed by the radiologist for accuracy. Thank you for having your radiology procedures performed at [facility] RADIOLOGY REPORT Date&Time printed: [~ rep prt dt last] [~ rep prt tm last] Page 2 of 2 [place] [id number] RADIOLOGY REPORT This report is in Signed status. If this report is in a DRAFT status it has not yet been reviewed by the radiologist for accuracy. Thank you for having your radiology procedures performed at [facility] RADIOLOGY REPORT Date&Time printed: [~ rep prt dt last] [~ rep prt tm last] Page 1 of 1 INDICATION: atherosclerosis of the [place] arteries with ulcer right foot. Status post right sided bypass graft. Saphenous vein harvest from the left. Incisions on the right leg proximal to mid thigh and popliteal region. Wound on foot. COMPARISON: Comparison CT angio April 02, 2020.. TECHNIQUE: Bilateral lower extremity arterial Doppler ultrasound. FINDINGS: Ankle brachial indices could not be assessed to the noncompressible vessels. In the right lower extremity decreased inflow velocities were observed with monophasic waveforms in the common femoral and distal arteries. The right popliteal proximal anterior and posterior tibial and tibial-peroneal trunk show no observable flow and heavily calcified vessels. The distal posterior tibial artery shows no flow on the right. There was no observable bypass graft in the right leg, consistent with occlusion of the bypass graft placed on the right. Right lower extremity arterial Doppler velocity chart: Right AITCHBONE BREAKER PSV 51 cm/S Profundal 59 Proximal SFA 42 Mid SFA 33 Distal SFA 24 Popliteal 9/0 Proximal ERIC no flow Tibial-peroneal trunk no flow Proximal ELECTRICAL SYSTEMS DRAFTER 8 no flow Distal ELECTRICAL SYSTEMS DRAFTER 8 no flow Distal ERIC 21 In the left lower extremity biphasic waveforms are noted at and proximal to the popliteal and monophasic arterial waveforms are noted distally. No flow could be observed in the proximal posterior tibial artery on the left. Heavily calcified calf vessels are seen on the left. Left lower extremity arterial Doppler velocity chart: Left AITCHBONE BREAKER PSV 90 cm/S Profundal 59 Proximal SFA 44 Mid SFA 56 Distal SFA 65 Popliteal 65 Proximal ERIC 65 Tibial-peroneal trunk 37 Proximal ELECTRICAL SYSTEMS DRAFTER not seen Distal ELECTRICAL SYSTEMS DRAFTER 31 Distal ERIC 59 IMPRESSION: Advanced occlusive disease on the right as above. Advanced atherosclerotic changes on the left. Monophasic waveforms left lower extremity. <Electronically signed by Gilson Sarah > 09/25/20925 DD: Villa Sarah MD 09/25/20915 DT: NERY 09/25/20925 DS: TAMEKA 09/25/2091509/25/20915 [~ rep ct labl] PROGNOSIS: Fair ACTIVITY: [As tolerated]. DIET: Cardiac DISPOSITION: Snf Other Correction. DISCHARGE INSTRUCTIONS: Follow-up with vascular surgeon and PCP DISCHARGE CONDITION: [Stable]. TIME SPENT ON DISCHARGE: Greater than 40 minutes. Vital Signs/I&Os Vital Signs Date Time Temp Pulse Resp B/P (MAP) Pulse Ox O2 Delivery O2 Flow Rate FiO2 09/28/20 15:03 128/56 (80) 09/28/20 14:00 98.1 71 18 97 Room Air 09/27/20 16:15 2 I&O- Last 24 Hours up to 6 AM 09/28/20 05:59 Intake Total 1580 ml Output Total 1780 ml Balance -200 ml Laboratory Data Labs 24H Laboratory Tests 2 09/27/20 20:06: Bedside Glucose (Misc Panel) 196H 09/28/20 05:45: Immature Granulocyte % (Auto) , Neutrophils (%) (Auto) , Nucleated Red Blood Cells % (auto) 0.0, Neutrophils 78H, Lymphocytes (Manual) 13L, Monocytes (Manua l) 5, Eosinophils (Manual) 1, Metamyelocytes 2H, Atypical Lymphocytes 1, Hypochromasia 1+, Poikilocytosis 1+, Anisocytosis 1+, Ovalocytes 1+, Platelet Estimate NORMAL 09/28/20 05:46: Anion Gap 6L, Glomerular Filtration Rate > 60.0, Calcium Level 8.0L, Magnesium Level 1.5L 09/28/20 11:35: Bedside Glucose (Misc Panel) 239H CBC/BMP Laboratory Tests 09/28/20 05:45 09/28/20 05:46 FSBS Laboratory Tests Test 09/27/20 20:06 09/28/20 11:35 Range/Units Bedside Glucose (Misc Panel) 196 239 83-110 MG/DL Microbiology Microbiology 09/23/20 Wound Culture - Final, Complete Klebsiella Oxytoca Staphylococcus Epidermidis Staphylococcus Sp Coag Neg#2 Corynebacterium Species 09/23/20 Blood Culture - Final, Complete NO GROWTH AFTER 5 DAYS Discharge Medications Scheduled Apixaban (Eliquis) 5 Mg Tablet, 5 MG PO BID, (Reported) Fish Oil/Borage/Flax/Om3,6,9 1 ([place] 3-6-9 Complex Softgel) 1 Cap Cap, 1 CAP PO DAILY, (Reported) Lisinopril (Lisinopril) 10 Mg Tablet, 10 MG PO DAILY, (Reported) Metformin HCl (Metformin HCl) 500 Mg Tab, 1,000 MG PO BID, (Reported) Metoprolol Tartrate (Metoprolol Tartrate) 50 Mg Tablet, 25 MG PO BID, (Reported) Pantoprazole Sodium (Pantoprazole Sodium) 40 Mg Tablet.dr, 40 MG PO DAILY, (Reported) Tamsulosin Hcl (Tamsulosin HCl) 0.4 Mg Capsule, 0.4 MG PO DAILY, (Reported) Tramadol HCl (Tramadol HCl) 50 Mg Tablet, 50 MG PO BID, (Reported) Vitamin B Complex (Vitamin B Complex) 1 Tab Tab, 1 TAB PO DAILY, (Reported) Allergies Coded Allergies: No Known Allergies (Unverified , 04/01/20) ERAN NETTLES DO Sep 28, 2020 18:31
== END 2020-09-28 16:00 | DRG 239 ==
LOC: M ED 05:55 → M ED INP 08:44 → ENRESERV 08:58 → M MSPAV 10:36
PROVIDERS: ADMIT Internal Medicine; ATTEND Internal Medicine
PROC: 0Y6C0Z1 Detachment at Right Upper Leg, High, Open Approach (ICD-10-PCS; principal; 2020-09-27 14:45)
DX: E11.51 Type 2 diabetes mellitus with diabetic peripheral angiopathy without gangrene (principal); G93.41 Metabolic encephalopathy; I48.20 Chronic atrial fibrillation, unspecified; I10 Essential (primary) hypertension; I25.10 Atherosclerotic heart disease of native coronary artery without angina pectoris; E11.649 Type 2 diabetes mellitus with hypoglycemia without coma; Z79.899 Other long term (current) drug therapy; K44.9 Diaphragmatic hernia without obstruction or gangrene

== ENCOUNTER 2020-09-28 11:50 | Inpatient (IN) | payer MEDICARE, OTHER ==
[~2020-09-28] VITALS: Ht 180.3 cm; Wt 75.4 kg
[~2020-09-28 11:50] MED LIST changes: +DOXY100T PO; +ELIQ5TAB PO; +METO50TA7 PO; +PANT40TA29 PO; +TRAM50TA2 PO
[2020-09-28 16:25] VITALS: BP 138/64
[2020-09-28] MEDS ORDERED: DEXTROSE 50% 50 ML SYRINGE IV PRN (17:00)
[2020-09-28] MEDS ORDERED: GLUCOSE 4GM CHEW TABLET PO PRN (17:00)
[2020-09-28] MEDS ORDERED: GLUCAGON INJ 1MG VIAL SC PRN (17:00)
[2020-09-28] MEDS ORDERED: PILL CUTTER 1 EACH XX PRN (17:45)
[2020-09-28] MEDS: metFORMIN (GLUCOPHAGE) 500 MG TAB PO SCH (18:19)
[2020-09-28] MEDS: HumaLOG INSULIN (NovoLOG) PER UNIT SC SCH ×2 (18:20→20:54)
[2020-09-28 20:00] VITALS: BP 139/65
[2020-09-28] MEDS: DOCUSATE SODIUM 100MG CAPSULE PO SCH (20:48)
[2020-09-28] MEDS: SENNA 8.6 MG TAB (SENOKOT) PO SCH (20:48)
[2020-09-28] MEDS: MAGNESIUM GLUCONATE 500 MG TAB PO SCH (20:48)
[2020-09-28] MEDS: APIXABAN 5 MG TAB (ELIQUIS) PO SCH (20:48)
[2020-09-28] MEDS: METOPROLOL TART 25 MG TABLET PO SCH (20:52)
[2020-09-28] MEDS: ACETAMINOPHEN 500 MG TAB PO SCH (20:54)
[2020-09-28] MEDS: REMEDY PHYTOPLEX Z-GUARD PASTE 113GM TUBE (FROM STOREROOM PRODUCT) TOP SCH (20:55)
[2020-09-29 06:00] VITALS: BP 147/65
[2020-09-29] MEDS: oxyCODONE 5MG TAB PO PRN ×2 (06:11→12:09)
[2020-09-29 07:33] LABS: HEMATOCRIT 25.8 % (42.0-52.0); HEMOGLOBIN 7.8 g/dl (13.5-17.5); MEAN CORPUSCULAR HEMOGLOBIN 27.6 pg (27.0-33.0); MEAN CORPUSCULAR HGB CONC 30.2 g/dl (32.0-36.5); MEAN CORPUSCULAR VOLUME 91.2 fl (80.0-96.0); PLATELET COUNT, AUTOMATED 258 10^3/uL (150-450); RED BLOOD COUNT 2.83 10^6/uL (4.30-6.10); WHITE BLOOD COUNT 6.3 10^3/uL (4.0-10.0)
[2020-09-29] MEDS: metFORMIN (GLUCOPHAGE) 500 MG TAB PO SCH ×2 (08:00→17:33)
[2020-09-29 08:07] LABS: ALBUMIN 2.1 GM/DL (3.2-5.2); ALT/SGPT 16 U/L (12-78); BILIRUBIN,TOTAL 0.6 MG/DL (0.2-1.0); BLOOD UREA NITROGEN 14 MG/DL (7-18); CALCIUM LEVEL 7.9 MG/DL (8.8-10.2); CARBON DIOXIDE LEVEL 27 MEQ/L (21-32); CHLORIDE LEVEL 105 MEQ/L (98-107); CREATININE FOR GFR 0.99 MG/DL (0.70-1.30); GLOMERULAR FILTRATION RATE > 60.0 (>35); GLUCOSE, FASTING 161 MG/DL (70-100); POTASSIUM SERUM 4.5 MEQ/L (3.5-5.1); SODIUM LEVEL 138 MEQ/L (136-145); TOTAL PROTEIN 5.5 GM/DL (6.4-8.2)
[2020-09-29 08:20] LABS: ATYPICAL LYMPH 3 % (0-5); LYMPHOCYTES 17 % (16-44); MONOCYTES 8 % (0-5); NEUTROPHILS 70 % (28-66); PLATELET ESTIMATE NORMAL (NORMAL)
[2020-09-29 08:21] LABS: ANISOCYTOSIS 2+; HYPOCHROMASIA 1+
[2020-09-29 08:22] LABS: POIKILOCYTOSIS 2+
--- NOTE | 2020-09-29 08:41 | IPNPDOC ---
Text Note Date of Service The patient was seen on 09/29/20. NOTE Vascular surgery. Dr. Fraser Patient seen and examined postoperative day 2 status post right AKA. He is doing well. The patient states pain is controlled. He is sitting up in bed having breakfast. No drainage noted on dressing today, minimal bruising along the inferior edge. The stump was thoroughly cleaned and redressed with Xeroform, 4 x 4's, Kerlix, and an Andrew wrap. It was elevated on a pillow to diminish swelling. The patient tolerated this well. Continue with daily dressing changes. Plan will be to remove lucius at 14 days postop, sutures at 21 days postop. PT OT as per ARU. Continue with analgesia when necessary. Encourage high-protein diet to help with wound healing. The patient had very little muscle, and likely has protein malnutrition. Encouraging protein intake will help with healing of his stump. We appreciate the opportunity to produce pain in the care of this patient. VS,Fishbone, I+O VS, Fishbone, I+O Laboratory Tests 09/29/20 06:54 Vital Signs Date Time Temp Pulse Resp B/P (MAP) Pulse Ox O2 Delivery O2 Flow Rate FiO2 09/29/20 06:41 18 09/29/20 06:00 97.5 70 147/65 (92) 97 Room Air I&O- Last 24 Hours up to 6 AM 09/29/20 05:59 Intake Total 270 ml Output Total 1550 ml Balance -1280 ml Beth Deshpande Sep 29, 2020 08:41
[2020-09-29] MEDS ORDERED: MAGNESIUM CHLORIDE 64 MG TABCR (SLO MAG) PO SCH (09:00)
[2020-09-29] MEDS: HumaLOG INSULIN (NovoLOG) PER UNIT SC SCH ×4 (09:56→21:00)
[2020-09-29] MEDS: METOPROLOL TART 25 MG TABLET PO SCH ×2 (09:57→22:20)
[2020-09-29] MEDS: DOCUSATE SODIUM 100MG CAPSULE PO SCH ×2 (09:57→22:18)
[2020-09-29] MEDS: APIXABAN 5 MG TAB (ELIQUIS) PO SCH ×2 (09:57→22:19)
[2020-09-29] MEDS: VITAMIN B COMPLEX/VIT C CAP PO SCH (09:57)
[2020-09-29] MEDS: PANTOPRAZOLE 40MG TAB (PROTONIX) PO SCH (09:57)
[2020-09-29] MEDS: ASPIRIN 81 MG ENTERIC TAB PO SCH (09:57)
[2020-09-29] MEDS: TAMSULOSIN 0.4 MG CAP PO SCH (09:57)
[2020-09-29] MEDS: MAGNESIUM GLUCONATE 500 MG TAB PO SCH ×2 (09:59→22:19)
[2020-09-29] MEDS: lisinopriL 10 MG TAB PO SCH (09:59)
[2020-09-29] MEDS: REMEDY PHYTOPLEX Z-GUARD PASTE 113GM TUBE (FROM STOREROOM PRODUCT) TOP SCH ×3 (10:01→22:20)
[2020-09-29] MEDS: ATORVASTATIN 20 MG TAB PO SCH (10:01)
[2020-09-29] MEDS: ACETAMINOPHEN 500 MG TAB PO SCH ×3 (10:02→22:19)
--- NOTE | 2020-09-29 10:30 | HPEPDOC ---
Head Swamper Note DATE OF ADMISSION: 09-28-20 DATE OF SERVICE: 09-29-20 TIME OF ADMISSION: Please refer to physician's admission order. SOURCE OF ADMISSION INFORMATION: [facility] record and patient CHIEF COMPLAINT: right AKA HISTORY OF PRESENT ILLNESS: 85M pmh HTN, DM2, CAD with afib, chronic anemia, kidney stones, lumbar spondylosis with right sided weakness, PVD with right lower extremity wounds on chronic doxycycline and followed by Dr. Guadalupe presented to [facility] ED on 09-23-20 with fever and altered mental status. CT was negative for bleed and LE Xrays showed soft tissue swelling. Vascular surgery was consulted and patient underwent an arterial study which showed advanced occlusive disease and ultimately underwent a right AKA on 09-27-20. He was evaluated by therapy, found to have impairments in mobility and ADLs and deemed medically appropriate for discharge to ARU on 09-28-20. REVIEW OF SYSTEMS: The following is a completed review of systems and has been reviewed. Review of systems otherwise unremarkable. PAIN: Patient self reports minimal residual limb pain EYES: No recent vision changes EARS, NOSE, & THROAT: No throat pain, or dysphagia, or rhinorrhea CARDIOVASCULAR: Denies chest pain or palpitations PULMONARY: Denies shortness of breath GASTROINTESTINAL: +Denies constipation GENITOURINARY: denies dysuria MUSCULOSKELETAL: right aka NEUROLOGICAL:+peripheral polyneuropathy HEMATOLOGICAL: +anemia SKIN: right aka incision PSYCHIATRIC: Unremarkable All other review of systems found to be negative. PAST MEDICAL HISTORY: as per HPI PAST SURGICAL HISTORY: s/p lumbar surgery, right TKR, bilat CTS, CABG, right ulnar repair, LE angioplasty ALLERGIES: Please see below. MEDICATIONS: Please see below. FAMILY HISTORY: cardiac, cancer SOCIAL HISTORY: no smoking/etoh/illicit drugs DIET: low sodium PHYSICAL EXAMINATION: VITAL SIGNS: Please see below. GENERAL: Pleasant and cooperative. No acute distress. HEENT: PERRL. Extraocular movements intact. Clear conjunctiva CARDIOVASCULAR: Regular rate and rhythm. No murmurs, rubs, or gallops LUNGS: Clear to auscultation bilaterally. No wheezes. No rhonchi. ABDOMEN: Soft, nontender, nondistended. Positive bowel sounds. Normal active bowel sounds NEUROLOGICAL: Alert and oriented times three. Cranial nerves II through XII grossly intact. Sensation grossly intact EXTREMITIES: 5\5 strength bilateral upper extremities. 5\5 strength righthip flexor 5/5 strength in left lower extremity. SKIN: right AKA incision LABORATORY DATA: Please see below. IMAGING:Imaging documentation personally reviewed by record. FUNCTIONAL STATUS: Premorbid: Modified Independent with all activities of daily life as well as mobility On Admission: Min assist for bed mobility, dressing, functional transfers and ambulation GOALS: Mod-I household distances ambulating with RW, dressing, toileting, bathing, bed mobility, functional transfers ASSESSMENT:85-year-old M with past medical history of DM, PVD, Afib who presents status post right AKA PLAN: 1. Rehab- PT/OT advance mobility and ADLs, teach limb care 2. Neuro- hx of peripheral polyneuropathy due to longstanding DM and PVD, c/u to opitmize glucose management 3. Cardiac- hx of Afib and CAD, c.u eliquis, beta-[place]ol[place], medicine consulted to assist in overall management -HLD c/u statin 4. Vasc- hx of PVD s/p right AKA 09-27-20, vascular consulted, c/u daily wound care, off suppressive abx at this time, will monitor ESR/CRP and wbc 5. Endo- hx of DM c/u ISS and metformin, will start back at lower dose and monitor FS and kidney function 6. GI ppx- protonix 7. DVT ppx- on Eliquis for afib 8. Pain- tylenol standing and oxycodone prn 9. - montor PVrs 10. Heme- hx of chronic anemia will consider transfusion if patient symptomatic, today he repots he does not feel weaker with an Hgb of 7.8 10. Dispo- TBD POST ADMISSION PHYSICIAN EVALUATION: Medical and functional status: Description of medical status, medical assessment: As above. Rehabilitation diagnosis and current and prior cold morbid medical conditions as above. Risk of complications and plans to mitigate them as above. Description of functional status current status is as above. Prior status as above. Status compared to preadmission: There are no clinically significant differences between the patient's current status and the information described on the preadmission screening document. Treatment plan anticipated: Treatment plan is as described above. Required disciplines including physical therapy, occupational therapy, others as noted above. Intensity of services: 3 hours a day, 6 days a week. Special considerations: There are no specific special or safety considerations that would likely preclude immediate implementation of an intensive rehabilitation program or subsequently influence the plan of care. ATTESTATION: Considering all the information above, it is my best judgment that this patient requires intensive rehabilitation therapy as described above and an inpatient hospital environment due to the complexity of nursing, medical, and rehabilitation needs required by the patient. Furthermore, this patient can reasonably be expected to participate in an benefit from an inpatient rehabilitation stay with an interdisciplinary team approach to the delivery of rehabilitation care under the direction and supervision of rehabilitation physician. PROGNOSIS: good ESTIMATED LENGTH OF STAY:10-14 days. PROJECTED DISCHARGE DESTINATION: Home with family support and any durable medical equipment required to increase functional safety and mobility. TIME SPENT COUNSELING AND COORDINATING INITIAL CARE: Greater than 70 minutes. Vital Signs Vital Sign - Last 24 Hours 09/28/20 09/28/20 09/28/20 09/28/20 16:25 16:46 20:00 20:52 Temp 98.8 98.8 Pulse 80 72 72 Resp 20 20 20 B/P (MAP) 138/64 (88) 139/65 (89) 139/65 Pulse Ox 96 95 O2 Delivery Room Air Room Air Room Air 09/29/20 09/29/20 09/29/20 06:00 06:11 06:41 Temp 97.5 Pulse 70 Resp 18 18 18 B/P (MAP) 147/65 (92) Pulse Ox 97 O2 Delivery Room Air Laboratory Data CBC/BMP Laboratory Tests 09/29/20 06:54 Labs 24H Laboratory Tests 2 09/28/20 16:28: Bedside Glucose (Misc Panel) 178H 09/28/20 19:39: Bedside Glucose (Misc Panel) 258H 09/29/20 05:14: Bedside Glucose (Misc Panel) 166H 09/29/20 06:54: Immature Granulocyte % (Auto) , Neutrophils (%) (Auto) , Nucleated Red Blood Cells % (auto) 0.0, Neutrophils 70H, Band Neutrophils 2, Lymphocytes (Manual) 17, Monocytes (Manual) 8H, Atypical Lymphocytes 3, Hypochromasia 1+, Poikil ocytosis 2+, Anisocytosis 2+, Platelet Estimate NORMAL, Anion Gap 6L, Glomerular Filtration Rate > 60.0, Calcium Level 7.9L, Total Bilirubin 0.6, Aspartate Amino Transf (AST/SGOT) 8, Alanine Aminotransferase (ALT/SGPT) 16, Alkaline Phosphatase 69, Total Protein 5.5L, Albumin 2.1L, Albumin/Globulin Ratio 0.6 FSBS Laboratory Tests Test 09/28/20 16:28 09/28/20 19:39 09/29/20 05:14 Range/Units Bedside Glucose (Misc Panel) 178 258 166 83-110 MG/DL Home Medications Scheduled Apixaban (Eliquis) 5 Mg Tablet, 5 MG PO BID, (Reported) Fish Oil/Borage/Flax/Om3,6,9 1 ([place] 3-6-9 Complex Softgel) 1 Cap Cap, 1 CAP PO DAILY, (Reported) Lisinopril (Lisinopril) 10 Mg Tablet, 10 MG PO DAILY, (Reported) Metformin HCl (Metformin HCl) 500 Mg Tab, 1,000 MG PO BID, (Reported) Metoprolol Tartrate (Metoprolol Tartrate) 50 Mg Tablet, 25 MG PO BID, (Reported) Pantoprazole Sodium (Pantoprazole Sodium) 40 Mg Tablet.dr, 40 MG PO DAILY, (Reported) Tamsulosin Hcl (Tamsulosin HCl) 0.4 Mg Capsule, 0.4 MG PO DAILY, (Reported) Tramadol HCl (Tramadol HCl) 50 Mg Tablet, 50 MG PO BID, (Reported) Vitamin B Complex (Vitamin B Complex) 1 Tab Tab, 1 TAB PO DAILY, (Reported) Allergies Coded Allergies: No Known Allergies (Unverified , 04/01/20) A-FIB/CHADSVASC A-FIB History Current/History of A-Fib/PAF?: Yes Current PO Anticoag Therapy: Yes EDINSON BOO MD Sep 29, 2020 10:30
--- NOTE | 2020-09-29 12:38 | HPEPDOC ---
[facility] Medical History & Physical Date of Admission Sep 28, 2020 Date of Service: Sep 28, 2020 History and Physical CHIEF COMPLAINT: admitted to ARU HISTORY OF PRESENT ILLNESS: 85M previously sent to ED by his human resources support specialist Dr. Guadalupe for fever and altered mental status. Patient was admitted for further evaluation and treatment. Vascular surgery was consulted, and further imaging revealed advanced occlusive disease. Patient ultimately underwent a right [id number] amputation and has been discharged to acute rehabilitation unit for further rehabilitation. PAST MEDICAL HISTORY: #DM #HTN #CAD/CABG #afib #chronic anemia #PAD s/p right AKA ALLERGIES: Please see below. REVIEW OF SYSTEMS: Negative except as per HPI. HOME MEDICATIONS: Please see below. PHYSICAL EXAMINATION: VITAL SIGNS: See below LABORATORY DATA: See below. MICROBIOLOGY: Please see below. A/P: 85M with extensive medical history originally presented for fever/AMS, found to have severe occlusive PAD, and is now status post right AKA, admitted to ARU for rehabilitation. #PAD - s/p right AKA - follow as per vascular #HTN - lisinopril #DM - metformin with sliding scale insulin - carb consistent diet #CAD - lipitor, asa #generalized deconditioning #afib - eliquis for a/c, rate controlled on lopressor #BPH - flomax #anemia Vital Signs Vital Signs Date Time Temp Pulse Resp B/P (MAP) Pulse Ox O2 Delivery O2 Flow Rate FiO2 09/29/20 09:57 78 147/65 09/29/20 06:41 18 09/29/20 06:00 97.5 97 Room Air Laboratory Data Labs 24H Laboratory Tests 2 09/28/20 16:28: Bedside Glucose (Misc Panel) 178H 09/28/20 19:39: Bedside Glucose (Misc Panel) 258H 09/29/20 05:14: Bedside Glucose (Misc Panel) 166H 09/29/20 06:54: Immature Granulocyte % (Auto) , Neutrophils (%) (Auto) , Nucleated Red Blood Cells % (auto) 0.0, Neutrophils 70H, Band Neutrophils 2, Lymphocytes (Manual) 17, Monocytes (Manual) 8H, Atypical Lymphocytes 3, Hypochromasia 1+, Poikilocytosis 2+, Anisocytosis 2+, Platelet Estimate NORMAL, Anion Gap 6L, Glomerular Filtration Rate > 60.0, Calcium Level 7.9L, Total Bilirubin 0.6, Aspartate Amino Transf (AST/SGOT) 8, Alanine Aminotransferase (ALT/SGPT) 16, Alkaline Phosphatase 69, Total Protein 5.5L, Albumin 2.1L, Albumin/Globulin Ratio 0.6 09/29/20 11:06: Bedside Glucose (Misc Panel) 274H CBC/BMP Laboratory Tests 09/29/20 06:54 Home Medications Scheduled Apixaban (Eliquis) 5 Mg Tablet, 5 MG PO BID Fish Oil/Borage/Flax/Om3,6,9 1 ([place] 3-6-9 Complex Softgel) 1 Cap Cap, 1 CAP PO DAILY Lisinopril (Lisinopril) 10 Mg Tablet, 10 MG PO DAILY Metformin HCl (Metformin HCl) 500 Mg Tab, 1,000 MG PO BID Metoprolol Tartrate (Metoprolol Tartrate) 50 Mg Tablet, 25 MG PO BID Pantoprazole Sodium (Pantoprazole Sodium) 40 Mg Tablet.dr, 40 MG PO DAILY Tamsulosin Hcl (Tamsulosin HCl) 0.4 Mg Capsule, 0.4 MG PO DAILY Tramadol HCl (Tramadol HCl) 50 Mg Tablet, 50 MG PO BID Vitamin B Complex (Vitamin B Complex) 1 Tab Tab, 1 TAB PO DAILY Allergies Coded Allergies: No Known Allergies (Unverified , 04/01/20) A-FIB/CHADSVASC A-FIB History Current/History of A-Fib/PAF?: No BALBINA BROWNING MD Sep 29, 2020 12:38
[2020-09-29 14:00] VITALS: BP 122/58
[2020-09-29 20:15] VITALS: BP 128/69
[2020-09-29] MEDS: SENNA 8.6 MG TAB (SENOKOT) PO SCH (22:18)
[2020-09-30 06:14] VITALS: BP 150/82
[2020-09-30] MEDS: oxyCODONE 5MG TAB PO PRN (06:24)
[2020-09-30 07:40] LABS: HEMATOCRIT 26.2 % (42.0-52.0); HEMOGLOBIN 7.9 g/dl (13.5-17.5); MEAN CORPUSCULAR HEMOGLOBIN 27.6 pg (27.0-33.0); MEAN CORPUSCULAR HGB CONC 30.2 g/dl (32.0-36.5); MEAN CORPUSCULAR VOLUME 91.6 fl (80.0-96.0); PLATELET COUNT, AUTOMATED 279 10^3/uL (150-450); RED BLOOD COUNT 2.86 10^6/uL (4.30-6.10)
[2020-09-30 08:17] LABS: EOSINOPHILS 4 % (0-3); LYMPHOCYTES 21 % (16-44); MONOCYTES 2 % (0-5); MYELOCYTES 1 % (0-0); NEUTROPHILS 71 % (28-66); OVALOCYTES 1+; PLATELET ESTIMATE NORMAL (NORMAL); POIKILOCYTOSIS 1+
[2020-09-30 08:18] LABS: ANISOCYTOSIS 1+
[2020-09-30] MEDS: HumaLOG INSULIN (NovoLOG) PER UNIT SC SCH ×4 (08:46→20:11)
[2020-09-30] MEDS: PANTOPRAZOLE 40MG TAB (PROTONIX) PO SCH (08:46)
[2020-09-30] MEDS: TAMSULOSIN 0.4 MG CAP PO SCH (08:46)
[2020-09-30] MEDS: ATORVASTATIN 20 MG TAB PO SCH (08:46)
[2020-09-30] MEDS: VITAMIN B COMPLEX/VIT C CAP PO SCH (08:46)
[2020-09-30] MEDS: APIXABAN 5 MG TAB (ELIQUIS) PO SCH ×2 (08:46→20:10)
[2020-09-30] MEDS: MAGNESIUM GLUCONATE 500 MG TAB PO SCH ×2 (08:47→20:10)
[2020-09-30] MEDS: metFORMIN (GLUCOPHAGE) 500 MG TAB PO SCH ×2 (08:47→17:06)
[2020-09-30] MEDS: ASPIRIN 81 MG ENTERIC TAB PO SCH (08:47)
[2020-09-30] MEDS: DOCUSATE SODIUM 100MG CAPSULE PO SCH ×2 (08:47→20:10)
[2020-09-30] MEDS: lisinopriL 10 MG TAB PO SCH (08:48)
[2020-09-30] MEDS: ACETAMINOPHEN 500 MG TAB PO SCH ×3 (08:48→20:11)
[2020-09-30] MEDS: METOPROLOL TART 25 MG TABLET PO SCH ×2 (08:48→20:12)
[2020-09-30] MEDS: REMEDY PHYTOPLEX Z-GUARD PASTE 113GM TUBE (FROM STOREROOM PRODUCT) TOP SCH ×3 (08:49→20:12)
[2020-09-30 14:00] VITALS: BP 95/54
[2020-09-30] MEDS: SENNA 8.6 MG TAB (SENOKOT) PO SCH (20:10)
[2020-09-30 20:15] VITALS: BP 151/76
[2020-10-01 05:46] VITALS: BP 149/73
[2020-10-01] MEDS: BISACODYL 5 MG TAB PO PRN (06:51)
[2020-10-01] MEDS: HumaLOG INSULIN (NovoLOG) PER UNIT SC SCH ×4 (08:34→20:59)
[2020-10-01] MEDS: PANTOPRAZOLE 40MG TAB (PROTONIX) PO SCH (08:34)
[2020-10-01] MEDS: DOCUSATE SODIUM 100MG CAPSULE PO SCH ×2 (08:34→20:56)
[2020-10-01] MEDS: MAGNESIUM GLUCONATE 500 MG TAB PO SCH ×2 (08:35→20:56)
[2020-10-01] MEDS: VITAMIN B COMPLEX/VIT C CAP PO SCH (08:35)
[2020-10-01] MEDS: lisinopriL 10 MG TAB PO SCH (08:35)
[2020-10-01] MEDS: TAMSULOSIN 0.4 MG CAP PO SCH (08:35)
[2020-10-01] MEDS: metFORMIN (GLUCOPHAGE) 500 MG TAB PO SCH ×2 (08:36→17:38)
[2020-10-01] MEDS: ATORVASTATIN 20 MG TAB PO SCH (08:36)
[2020-10-01] MEDS: ACETAMINOPHEN 500 MG TAB PO SCH ×3 (08:36→20:56)
[2020-10-01] MEDS: ASPIRIN 81 MG ENTERIC TAB PO SCH (08:36)
[2020-10-01] MEDS: APIXABAN 5 MG TAB (ELIQUIS) PO SCH ×2 (08:36→20:55)
[2020-10-01] MEDS: METOPROLOL TART 25 MG TABLET PO SCH ×2 (08:37→20:57)
[2020-10-01] MEDS: REMEDY PHYTOPLEX Z-GUARD PASTE 113GM TUBE (FROM STOREROOM PRODUCT) TOP SCH ×3 (08:37→20:59)
[2020-10-01 14:00] VITALS: BP 112/52
[2020-10-01 20:00] VITALS: BP 160/73
[2020-10-01] MEDS: SENNA 8.6 MG TAB (SENOKOT) PO SCH (20:55)
[2020-10-02 05:51] VITALS: BP 167/85
[2020-10-02 08:07] LABS: HEMATOCRIT 28.1 % (42.0-52.0); HEMOGLOBIN 8.4 g/dl (13.5-17.5); MEAN CORPUSCULAR HEMOGLOBIN 27.3 pg (27.0-33.0); MEAN CORPUSCULAR HGB CONC 29.9 g/dl (32.0-36.5); MEAN CORPUSCULAR VOLUME 91.2 fl (80.0-96.0); PLATELET COUNT, AUTOMATED 374 10^3/uL (150-450); RED BLOOD COUNT 3.08 10^6/uL (4.30-6.10); WHITE BLOOD COUNT 6.8 10^3/uL (4.0-10.0)
[2020-10-02 08:30] LABS: BLOOD UREA NITROGEN 18 MG/DL (7-18); CALCIUM LEVEL 8.5 MG/DL (8.8-10.2); CARBON DIOXIDE LEVEL 24 MEQ/L (21-32); CHLORIDE LEVEL 102 MEQ/L (98-107); CREATININE FOR GFR 1.17 MG/DL (0.70-1.30); GLOMERULAR FILTRATION RATE > 60.0 (>35); GLUCOSE, FASTING 166 MG/DL (70-100); POTASSIUM SERUM 4.1 MEQ/L (3.5-5.1); SODIUM LEVEL 135 MEQ/L (136-145)
[2020-10-02 09:07] LABS: ANISOCYTOSIS 2+; EOSINOPHILS 3 % (0-3); LYMPHOCYTES 17 % (16-44); MONOCYTES 2 % (0-5); NEUTROPHILS 78 % (28-66); PLATELET ESTIMATE NORMAL (NORMAL)
[2020-10-02] MEDS: HumaLOG INSULIN (NovoLOG) PER UNIT SC SCH ×4 (09:16→21:00)
[2020-10-02] MEDS: TAMSULOSIN 0.4 MG CAP PO SCH (09:17)
[2020-10-02] MEDS: VITAMIN B COMPLEX/VIT C CAP PO SCH (09:17)
[2020-10-02] MEDS: MAGNESIUM GLUCONATE 500 MG TAB PO SCH ×2 (09:17→21:56)
[2020-10-02] MEDS: ASPIRIN 81 MG ENTERIC TAB PO SCH (09:17)
[2020-10-02] MEDS: METOPROLOL TART 25 MG TABLET PO SCH ×2 (09:18→22:08)
[2020-10-02] MEDS: metFORMIN (GLUCOPHAGE) 500 MG TAB PO SCH ×2 (09:18→17:20)
[2020-10-02] MEDS: APIXABAN 5 MG TAB (ELIQUIS) PO SCH ×2 (09:18→21:57)
[2020-10-02] MEDS: PANTOPRAZOLE 40MG TAB (PROTONIX) PO SCH (09:19)
[2020-10-02] MEDS: DOCUSATE SODIUM 100MG CAPSULE PO SCH ×2 (09:19→21:56)
[2020-10-02] MEDS: lisinopriL 10 MG TAB PO SCH (09:19)
[2020-10-02] MEDS: ATORVASTATIN 20 MG TAB PO SCH (09:20)
[2020-10-02] MEDS: ACETAMINOPHEN 500 MG TAB PO SCH ×3 (09:20→21:57)
[2020-10-02] MEDS: REMEDY PHYTOPLEX Z-GUARD PASTE 113GM TUBE (FROM STOREROOM PRODUCT) TOP SCH ×3 (09:23→21:58)
--- NOTE | 2020-10-02 12:42 | IPNPDOC ---
PM&R Progress Note DATE OF SERVICE: Oct 02, 2020 Technical Assoc Progress Note Subjective: PAtient reporting he no longer feels constipated and that he has been practicing standing in the parallel bars. He denies fevers or chills. REVIEW OF SYSTEMS: The following is a completed review of systems and has been reviewed. Review of systems otherwise unremarkable. PAIN: Patient self reports minimal residual limb pain EYES: No recent vision changes EARS, NOSE, & THROAT: No throat pain, or dysphagia, or rhinorrhea CARDIOVASCULAR: Denies chest pain or palpitations PULMONARY: Denies shortness of breath GASTROINTESTINAL: Denies constipation GENITOURINARY: denies dysuria MUSCULOSKELETAL: right aka NEUROLOGICAL:+peripheral polyneuropathy HEMATOLOGICAL: +anemia SKIN: right aka incision PSYCHIATRIC: Unremarkable All other review of systems found to be negative. PHYSICAL EXAMINATION: VITAL SIGNS: Please see below. GENERAL: Pleasant and cooperative. No acute distress. HEENT: PERRL. Extraocular movements intact. Clear conjunctiva CARDIOVASCULAR: Regular rate and rhythm. No murmurs, rubs, or gallops LUNGS: Clear to auscultation bilaterally. No wheezes. No rhonchi. ABDOMEN: Soft, nontender, nondistended. Positive bowel sounds. Normal active bowel sounds NEUROLOGICAL: Alert and oriented times three. Cranial nerves II through XII grossly intact. Sensation grossly intact EXTREMITIES: 5\5 strength bilateral upper extremities. 5\5 strength righthip flexor 5/5 strength in left lower extremity. SKIN: right AKA incision c/d/i ASSESSMENT:85-year-old M with past medical history of DM, PVD, Afib who presents status post right AKA PLAN: 1. Rehab- PT/OT advance mobility and ADLs, teach limb care 2. Neuro- hx of peripheral polyneuropathy due to longstanding DM and PVD, c/u to optimize glucose management 3. Cardiac- hx of Afib and CAD, c.u eliquis, beta-carol[place], medicine consulted to assist in overall management -HLD c/u statin 4. Vasc- hx of PVD s/p right AKA 09-27-20, vascular consulted, c/u daily wound care, off suppressive abx at this time, will monitor ESR/CRP and wbc 5. Endo- hx of DM c/u ISS and metformin, c/u lower dose and monitor FS and kidney function 6. GI ppx- protonix 7. DVT ppx- on Eliquis for afib 8. Pain- tylenol standing and oxycodone prn 9. - montor PVrs 10. Heme- hx of chronic anemia will consider transfusion if patient symptomatic, Hgb>8 10. Dispo- TBD Allergies Coded Allergies: No Known Allergies (Unverified , 04/01/20) Vital Signs Vital Signs Date Time Temp Pulse Resp B/P (MAP) Pulse Ox O2 Delivery O2 Flow Rate FiO2 10/02/20 11:35 18 Room Air 10/02/20 09:19 167/85 10/02/20 09:18 83 10/02/20 05:51 98.2 98 Laboratory Data CBC/BMP Laboratory Tests 10/02/20 06:23 Labs 24H Laboratory Tests 2 10/01/20 16:22: Bedside Glucose (Misc Panel) 199H 10/01/20 19:22: Bedside Glucose (Misc Panel) 201H 10/02/20 04:51: Bedside Glucose (Misc Panel) 168H 10/02/20 06:23: Immature Granulocyte % (Auto) , Neutrophils (%) (Auto) , Nucleated Red Blood Cells % (auto) 0.0, Neutrophils 78H, Lymphocytes (Manual) 17, Monocytes (Manual) 2, Eosinophils (Manual) 3, Anisocytosis 2+, Platelet Estimate NORMAL, Anion Gap 9, Glomerular Filtration Rate > 60.0, Calcium Level 8.5L 10/02/20 11:22: Bedside Glucose (Misc Panel) 135H Current Medications Current Medications Current Medications Medications (Trade) Dose Ordered Sig/Nicholas Route PRN Reason Start Time Stop Time Status Last Admin Dose Admin Acetaminophen (Tylenol Tab) 1,000 mg TID PO 09/28/20 21:00 10/02/20 09:20 Apixaban (Eliquis) 5 mg BID PO 09/28/20 21:00 10/02/20 09:18 Aspirin (Ecotrin) 81 mg DAILY PO 09/29/20 09:00 10/02/20 09:17 Atorvastatin Calcium (Lipitor) 40 mg DAILY PO 09/29/20 09:00 10/02/20 09:20 Bisacodyl (Dulcolax Tab) 10 mg DAILYPRN PRN PO CONSTIPATION 09/30/20 13:00 10/01/20 06:51 Dextrose (Dextrose 50%) 25 ml ASDIRECTED PRN IV SEE LABEL COMMENTS 09/28/20 17:00 Docusate Sodium (Colace) 100 mg BID PO 09/28/20 21:00 10/02/20 09:19 Glucagon (Glucagon) 1 mg ASDIRECTED PRN SC SEE LABEL COMMENTS 09/28/20 17:00 Glucose (Glucose) 16 GM ASDIRECTED PRN PO SEE LABEL COMMENTS 09/28/20 17:00 Home Med (Med Rec Complete!) ASDIRECTED XX 09/28/20 18:00 09/28/20 18:01 DC Insulin Human Lispro (HumaLOG INSULIN) SEE PROTOCOL TABLE AC SC 09/28/20 17:30 10/02/20 12:33 Insulin Human Lispro (HumaLOG INSULIN) SEE PROTOCOL TABLE QHS SC 09/28/20 21:00 09/28/20 20:54 Lisinopril (Prinivil) 10 mg DAILY PO 09/29/20 09:00 10/02/20 09:19 Magnesium Gluconate (Magnesium Gluconate) 250 mg BID PO 09/28/20 21:00 10/02/20 09:17 Magnesium Chloride (Slow-Mag) 64 mg DAILY PO 09/29/20 09:00 09/28/20 17:36 DC Metformin HCl (Glucophage) 500 mg BID@08,18 PO 09/28/20 18:00 10/02/20 09:18 Metoprolol Tartrate (Lopressor) 25 mg BID PO 09/28/20 21:00 10/02/20 09:18 Oxycodone HCl (Roxicodone, Oxyir) 5 mg Q4HP PRN PO PAIN 09/28/20 17:00 09/30/20 06:24 Pantoprazole Sodium (Protonix) 40 mg DAILY PO 09/29/20 09:00 10/02/20 09:19 Senna (Senokot) 1 tab QHS PO 09/28/20 21:00 10/01/20 20:55 Tamsulosin HCl (Flomax) 0.4 mg DAILY PO 09/29/20 09:00 10/02/20 09:17 Vitamin B Complex/ Vitamin C (Therapeutic B Complex w/C) 1 cap DAILY PO 09/29/20 09:00 10/02/20 09:17 EDINSON BOO MD Oct 02, 2020 12:42
[2020-10-02 13:23] LABS: C REACTIVE PROTEIN QUANTITATIV 1.15 MG/DL (0.00-0.30)
[2020-10-02 14:00] VITALS: BP 126/61
[2020-10-02 20:00] VITALS: BP 129/63
[2020-10-02] MEDS: SENNA 8.6 MG TAB (SENOKOT) PO SCH (21:57)
[2020-10-03 05:53] VITALS: BP 126/58
[2020-10-03] MEDS: PANTOPRAZOLE 40MG TAB (PROTONIX) PO SCH (08:20)
[2020-10-03] MEDS: ASPIRIN 81 MG ENTERIC TAB PO SCH (08:20)
[2020-10-03] MEDS: lisinopriL 10 MG TAB PO SCH (08:20)
[2020-10-03] MEDS: TAMSULOSIN 0.4 MG CAP PO SCH (08:20)
[2020-10-03] MEDS: VITAMIN B COMPLEX/VIT C CAP PO SCH (08:20)
[2020-10-03] MEDS: APIXABAN 5 MG TAB (ELIQUIS) PO SCH ×2 (08:20→20:53)
[2020-10-03] MEDS: ATORVASTATIN 20 MG TAB PO SCH (08:21)
[2020-10-03] MEDS: ACETAMINOPHEN 500 MG TAB PO SCH ×3 (08:21→20:53)
[2020-10-03] MEDS: metFORMIN (GLUCOPHAGE) 500 MG TAB PO SCH ×2 (08:21→17:30)
[2020-10-03] MEDS: MAGNESIUM GLUCONATE 500 MG TAB PO SCH ×2 (08:21→20:52)
[2020-10-03] MEDS: DOCUSATE SODIUM 100MG CAPSULE PO SCH ×2 (08:22→20:53)
[2020-10-03] MEDS: HumaLOG INSULIN (NovoLOG) PER UNIT SC SCH ×4 (08:22→20:53)
[2020-10-03] MEDS: METOPROLOL TART 25 MG TABLET PO SCH ×2 (08:22→20:52)
[2020-10-03] MEDS: REMEDY PHYTOPLEX Z-GUARD PASTE 113GM TUBE (FROM STOREROOM PRODUCT) TOP SCH ×3 (08:23→20:53)
--- NOTE | 2020-10-03 12:45 | IPNPDOC ---
PM&R Progress Note DATE OF SERVICE: Oct 03, 2020 Jumpbasting Machine Operator Progress Note Subjective: PAtient reporting he feels good today and that he was able to do stand-pivots to the commode, but gets weak. He was encourgaed to avoid using the bedpan so that he can be independent at home with bowel care. REVIEW OF SYSTEMS: The following is a completed review of systems and has been reviewed. Review of systems otherwise unremarkable. PAIN: Patient self reports minimal residual limb pain EYES: No recent vision changes EARS, NOSE, & THROAT: No throat pain, or dysphagia, or rhinorrhea CARDIOVASCULAR: Denies chest pain or palpitations PULMONARY: Denies shortness of breath GASTROINTESTINAL: Denies constipation GENITOURINARY: denies dysuria MUSCULOSKELETAL: right aka NEUROLOGICAL:+peripheral polyneuropathy HEMATOLOGICAL: +anemia SKIN: right aka incision PSYCHIATRIC: Unremarkable All other review of systems found to be negative. PHYSICAL EXAMINATION: VITAL SIGNS: Please see below. GENERAL: Pleasant and cooperative. No acute distress. HEENT: PERRL. Extraocular movements intact. Clear conjunctiva CARDIOVASCULAR: Regular rate and rhythm. No murmurs, rubs, or gallops LUNGS: Clear to auscultation bilaterally. No wheezes. No rhonchi. ABDOMEN: Soft, nontender, nondistended. Positive bowel sounds. Normal active bowel sounds NEUROLOGICAL: Alert and oriented times three. Cranial nerves II through XII grossly intact. Sensation grossly intact EXTREMITIES: 5\5 strength bilateral upper extremities. 5\5 strength righthip flexor 5/5 strength in left lower extremity. SKIN: right AKA incision c/d/i ASSESSMENT:85-year-old M with past medical history of DM, PVD, Afib who presents status post right AKA PLAN: 1. Rehab- PT/OT advance mobility and ADLs, teach limb care 2. Neuro- hx of peripheral polyneuropathy due to longstanding DM and PVD, c/u to optimize glucose management 3. Cardiac- hx of Afib and CAD, c.u eliquis, beta-[place], medicine consulted to assist in overall management -HLD c/u statin 4. Vasc- hx of PVD s/p right AKA 09-27-20, vascular consulted, c/u daily wound care, off suppressive abx at this time, will c/u to monitor ESR/CRP and wbc 5. Endo- hx of DM c/u ISS and metformin, c/u lower dose and monitor FS and kidney function 6. GI ppx- protonix 7. DVT ppx- on Eliquis for afib 8. Pain- tylenol standing and oxycodone prn 9. - montor PVrs 10. Heme- hx of chronic anemia will consider transfusion if patient symptomatic, so far Hgb>8 10. Dispo- TBD Allergies Coded Allergies: No Known Allergies (Unverified , 04/01/20) Vital Signs Vital Signs Date Time Temp Pulse Resp B/P (MAP) Pulse Ox O2 Delivery O2 Flow Rate FiO2 10/03/20 08:22 90 126/58 10/03/20 05:53 98.0 20 98 Room Air Laboratory Data Labs 24H Laboratory Tests 2 10/02/20 16:53: Bedside Glucose (Misc Panel) 117H 10/02/20 19:46: Bedside Glucose (Misc Panel) 117H 10/03/20 04:56: Bedside Glucose (Misc Panel) 170H 10/03/20 12:32: Bedside Glucose (Misc Panel) 149H Current Medications Current Medications Current Medications Medications (Trade) Dose Ordered Sig/Nicholas Route PRN Reason Start Time Stop Time Status Last Admin Dose Admin Acetaminophen (Tylenol Tab) 1,000 mg TID PO 09/28/20 21:00 10/03/20 08:21 Apixaban (Eliquis) 5 mg BID PO 09/28/20 21:00 10/03/20 08:20 Aspirin (Ecotrin) 81 mg DAILY PO 09/29/20 09:00 10/03/20 08:20 Atorvastatin Calcium (Lipitor) 40 mg DAILY PO 09/29/20 09:00 10/03/20 08:21 Bisacodyl (Dulcolax Tab) 10 mg DAILYPRN PRN PO CONSTIPATION 09/30/20 13:00 10/01/20 06:51 Dextrose (Dextrose 50%) 25 ml ASDIRECTED PRN IV SEE LABEL COMMENTS 09/28/20 17:00 Docusate Sodium (Colace) 100 mg BID PO 09/28/20 21:00 10/03/20 08:22 Glucagon (Glucagon) 1 mg ASDIRECTED PRN SC SEE LABEL COMMENTS 09/28/20 17:00 Glucose (Glucose) 16 GM ASDIRECTED PRN PO SEE LABEL COMMENTS 09/28/20 17:00 Home Med (Med Rec Complete!) ASDIRECTED XX 09/28/20 18:00 09/28/20 18:01 DC Insulin Human Lispro (HumaLOG INSULIN) SEE PROTOCOL TABLE AC SC 09/28/20 17:30 10/03/20 08:22 Insulin Human Lispro (HumaLOG INSULIN) SEE PROTOCOL TABLE QHS SC 09/28/20 21:00 09/28/20 20:54 Lisinopril (Prinivil) 10 mg DAILY PO 09/29/20 09:00 10/03/20 08:20 Magnesium Gluconate (Magnesium Gluconate) 250 mg BID PO 09/28/20 21:00 10/03/20 08:21 Magnesium Chloride (Slow-Mag) 64 mg DAILY PO 09/29/20 09:00 09/28/20 17:36 DC Metformin HCl (Glucophage) 500 mg BID@08,18 PO 09/28/20 18:00 10/03/20 08:21 Metoprolol Tartrate (Lopressor) 25 mg BID PO 09/28/20 21:00 10/03/20 08:22 Oxycodone HCl (Roxicodone, Oxyir) 5 mg Q4HP PRN PO PAIN 09/28/20 17:00 09/30/20 06:24 Pantoprazole Sodium (Protonix) 40 mg DAILY PO 09/29/20 09:00 10/03/20 08:20 Senna (Senokot) 1 tab QHS PO 09/28/20 21:00 10/02/20 21:57 Tamsulosin HCl (Flomax) 0.4 mg DAILY PO 09/29/20 09:00 10/03/20 08:20 Vitamin B Complex/ Vitamin C (Therapeutic B Complex w/C) 1 cap DAILY PO 09/29/20 09:00 10/03/20 08:20 EDINSON BOO MD Oct 03, 2020 12:45
[2020-10-03 14:00] VITALS: BP 132/80
[2020-10-03 20:00] VITALS: BP 136/69
[2020-10-03] MEDS: SENNA 8.6 MG TAB (SENOKOT) PO SCH (20:53)
[2020-10-04 06:00] VITALS: BP 158/82
[2020-10-04 06:57] LABS: HEMATOCRIT 27.8 % (42.0-52.0); HEMOGLOBIN 8.4 g/dl (13.5-17.5); MEAN CORPUSCULAR HEMOGLOBIN 27.4 pg (27.0-33.0); MEAN CORPUSCULAR HGB CONC 30.2 g/dl (32.0-36.5); MEAN CORPUSCULAR VOLUME 90.6 fl (80.0-96.0); PLATELET COUNT, AUTOMATED 440 10^3/uL (150-450); RED BLOOD COUNT 3.07 10^6/uL (4.30-6.10); WHITE BLOOD COUNT 8.5 10^3/uL (4.0-10.0)
[2020-10-04 07:19] LABS: BASOPHILS 1 % (0-1); EOSINOPHILS 1 % (0-3); LYMPHOCYTES 16 % (16-44); MONOCYTES 5 % (0-5); NEUTROPHILS 77 % (28-66)
[2020-10-04 07:20] LABS: PLATELET ESTIMATE NORMAL (NORMAL)
[2020-10-04 07:49] LABS: ERYTHROCYTE SEDIMENTATION RATE 50 mm/hr (0-20)
[2020-10-04] MEDS: HumaLOG INSULIN (NovoLOG) PER UNIT SC SCH ×4 (08:05→21:00)
[2020-10-04] MEDS: PANTOPRAZOLE 40MG TAB (PROTONIX) PO SCH (08:05)
[2020-10-04] MEDS: APIXABAN 5 MG TAB (ELIQUIS) PO SCH ×2 (08:05→21:23)
[2020-10-04] MEDS: VITAMIN B COMPLEX/VIT C CAP PO SCH (08:06)
[2020-10-04] MEDS: metFORMIN (GLUCOPHAGE) 500 MG TAB PO SCH (08:06)
[2020-10-04] MEDS: TAMSULOSIN 0.4 MG CAP PO SCH (08:06)
[2020-10-04] MEDS: MAGNESIUM GLUCONATE 500 MG TAB PO SCH ×2 (08:06→21:24)
[2020-10-04] MEDS: DOCUSATE SODIUM 100MG CAPSULE PO SCH ×2 (08:06→21:23)
[2020-10-04] MEDS: ATORVASTATIN 20 MG TAB PO SCH (08:07)
[2020-10-04] MEDS: ASPIRIN 81 MG ENTERIC TAB PO SCH (08:07)
[2020-10-04] MEDS: METOPROLOL TART 25 MG TABLET PO SCH ×3 (08:07→21:28)
[2020-10-04] MEDS: ACETAMINOPHEN 500 MG TAB PO SCH ×3 (08:07→21:27)
[2020-10-04] MEDS: lisinopriL 10 MG TAB PO SCH (08:08)
[2020-10-04] MEDS: REMEDY PHYTOPLEX Z-GUARD PASTE 113GM TUBE (FROM STOREROOM PRODUCT) TOP SCH ×3 (08:08→21:25)
[2020-10-04] MEDS: BISACODYL 5 MG TAB PO PRN (08:10)
[2020-10-04 08:25] LABS: BLOOD UREA NITROGEN 17 MG/DL (7-18); C REACTIVE PROTEIN QUANTITATIV 0.48 MG/DL (0.00-0.30); CALCIUM LEVEL 6.7 MG/DL (8.8-10.2); CARBON DIOXIDE LEVEL 17 MEQ/L (21-32); CHLORIDE LEVEL 157 MEQ/L (98-107); CREATININE FOR GFR 1.28 MG/DL (0.70-1.30); GLUCOSE, FASTING 117 MG/DL (70-100); POTASSIUM SERUM 6.6 MEQ/L (3.5-5.1); SODIUM LEVEL 171 MEQ/L (136-145)
[2020-10-04] MEDS ORDERED: BISACODYL 10 MG SUPP PR PRN (10:15)
[2020-10-04 10:23] LABS: ALBUMIN 2.7 GM/DL (3.2-5.2); BILIRUBIN,TOTAL 0.6 MG/DL (0.2-1.0); CALCIUM LEVEL 8.4 MG/DL (8.8-10.2); CREATININE FOR GFR 1.47 MG/DL (0.70-1.30); GLOMERULAR FILTRATION RATE 48.6 (>35); TOTAL PROTEIN 6.3 GM/DL (6.4-8.2)
[2020-10-04 14:00] VITALS: BP 147/80
[2020-10-04] MEDS: DULoxetine 20 MG CAP (CYMBALTA) PO SCH (15:45)
--- NOTE | 2020-10-04 15:46 | IPNPDOC ---
PM&R Progress Note DATE OF SERVICE: Oct 04, 2020 Director Of Logistics Progress Note Subjective: PAtient reporting he is sad and agrees to trial an antidepressant Cymbalta that might also help with his phantom limb pain. He reports he has had decreased appetite and decreased taste for several weeks and is not as interested in eating. REVIEW OF SYSTEMS: The following is a completed review of systems and has been reviewed. Review of systems otherwise unremarkable. PAIN: Patient self reports minimal residual limb pain EYES: No recent vision changes EARS, NOSE, & THROAT: No throat pain, or dysphagia, or rhinorrhea CARDIOVASCULAR: Denies chest pain or palpitations PULMONARY: Denies shortness of breath GASTROINTESTINAL: Denies constipation GENITOURINARY: denies dysuria MUSCULOSKELETAL: right aka NEUROLOGICAL:+peripheral polyneuropathy HEMATOLOGICAL: +anemia SKIN: right aka incision PSYCHIATRIC: Unremarkable All other review of systems found to be negative. PHYSICAL EXAMINATION: VITAL SIGNS: Please see below. GENERAL: Pleasant and cooperative. No acute distress. HEENT: PERRL. Extraocular movements intact. Clear conjunctiva CARDIOVASCULAR: Regular rate and rhythm. No murmurs, rubs, or gallops LUNGS: Clear to auscultation bilaterally. No wheezes. No rhonchi. ABDOMEN: Soft, nontender, nondistended. Positive bowel sounds. Normal active bowel sounds NEUROLOGICAL: Alert and oriented times three. Cranial nerves II through XII grossly intact. Sensation grossly intact EXTREMITIES: 5\5 strength bilateral upper extremities. 5\5 strength righthip flexor 5/5 strength in left lower extremity. SKIN: right AKA incision c/d/i ASSESSMENT:85-year-old M with past medical history of DM, PVD, Afib who presents status post right AKA PLAN: 1. Rehab- PT/OT advance mobility and ADLs, teach limb care 2. Neuro- hx of peripheral polyneuropathy due to longstanding DM and PVD, c/u to optimize glucose management 3. Cardiac- hx of Afib and CAD, c.u eliquis, beta-[place], medicine consulted to assist in overall management -HLD c/u statin 4. Vasc- hx of PVD s/p right AKA 09-27-20, vascular consulted, c/u daily wound care, off suppressive abx at this time, will c/u to monitor ESR/CRP and wbc 5. Endo- hx of DM c/u ISS will d/c metformin as mild TRACY and well controlled FS and c/u diet controlled management 6. GI ppx- protonix -addng glucerna to meals to increase caloric intake, patient reporting decreased taste- repeat Resp panel negative for covid 7. DVT ppx- on Eliquis for afib 8. Pain- tylenol standing and oxycodone prn -will add cymbalta 20mg daily for phantom limb pain and to help with low mood, patient aware and agrees to trial of antidepressant 9. - montor PVrs 10. Heme- hx of chronic anemia will consider transfusion if patient symptomatic, so far Hgb>8 11. Renal- TRACY, patient's lisinopril dose lowered and encourgaed to drink more fluids, will recheck BMP tomorrow 10. Dispo- TBD Allergies Coded Allergies: No Known Allergies (Unverified , 04/01/20) Vital Signs Vital Signs Date Time Temp Pulse Resp B/P (MAP) Pulse Ox O2 Delivery O2 Flow Rate FiO2 10/04/20 14:00 97.6 101 19 147/80 (102) 98 Room Air Laboratory Data CBC/BMP Laboratory Tests 10/04/20 06:17 10/04/20 09:32 Labs 24H Laboratory Tests 2 10/03/20 16:49: Bedside Glucose (Misc Panel) 171H 10/03/20 19:33: Bedside Glucose (Misc Panel) 131H 10/04/20 05:50: Bedside Glucose (Misc Panel) 155H 10/04/20 06:17: Immature Granulocyte % (Auto) , Neutrophils (%) (Auto) , Nucleated Red Blood Cells % (auto) 0.0, Neutrophils 77H, Lymphocytes (Manual) 16, Monocytes (Manual) 5, Eosinophils (Manual) 1, Basophils (Manual) 1, Red Blood Cell Morphology RUBY L, Platelet Estimate NORMAL, Erythrocyte Sedimentation Rate 50H, Anion Gap , Glomerular Filtration Rate 57.0, Calcium Level 6.7#L, C-Reactive Protein, Quantitative 0.48H 10/04/20 09:32: Anion Gap 11, Glomerular Filtration Rate 48.6, Calcium Level 8.4#L, Total Bilirubin 0.6, Aspartate Amino Transf (AST/SGOT) 12, Alanine Aminotransferase (ALT/SGPT) 17, Alkaline Phosphatase 66, Total Protein 6.3L, Albumin 2.7L, Albumin/Globulin Ratio 0.8 10/04/20 11:39: Bedside Glucose (Misc Panel) 155H Microbiology Microbiology 10/03/20 Respiratory Virus Panel (PCR) ([facility]) - Final, Complete Current Medications Current Medications Current Medications Medications (Trade) Dose Ordered Sig/Nicholas Route PRN Reason Start Time Stop Time Status Last Admin Dose Admin Acetaminophen (Tylenol Tab) 1,000 mg TID PO 09/28/20 21:00 10/04/20 08:07 Apixaban (Eliquis) 5 mg BID PO 09/28/20 21:00 10/04/20 08:05 Aspirin (Ecotrin) 81 mg DAILY PO 09/29/20 09:00 10/04/20 08:07 Atorvastatin Calcium (Lipitor) 40 mg DAILY PO 09/29/20 09:00 10/04/20 08:07 Bisacodyl (Dulcolax Suppository) 10 mg DAILYPRN PRN [place] CONSTIPATION 10/04/20 10:15 Bisacodyl (Dulcolax Tab) 10 mg DAILYPRN PRN PO CONSTIPATION 09/30/20 13:00 10/04/20 08:10 Dextrose (Dextrose 50%) 25 ml ASDIRECTED PRN IV SEE LABEL COMMENTS 09/28/20 17:00 Docusate Sodium (Colace) 100 mg BID PO 09/28/20 21:00 10/04/20 08:06 Duloxetine HCl (Cymbalta) 20 mg DAILY PO 10/04/20 09:00 Glucagon (Glucagon) 1 mg ASDIRECTED PRN SC SEE LABEL COMMENTS 09/28/20 17:00 Glucose (Glucose) 16 GM ASDIRECTED PRN PO SEE LABEL COMMENTS 09/28/20 17:00 Home Med (Med Rec Complete!) ASDIRECTED XX 09/28/20 18:00 09/28/20 18:01 DC Insulin Human Lispro (HumaLOG INSULIN) SEE PROTOCOL TABLE AC SC 09/28/20 17:30 10/04/20 08:05 Insulin Human Lispro (HumaLOG INSULIN) SEE PROTOCOL TABLE QHS SC 09/28/20 21:00 09/28/20 20:54 Lisinopril (Prinivil) 2.5 mg DAILY PO 10/05/20 09:00 Lisinopril (Prinivil) 10 mg DAILY PO 09/29/20 09:00 10/04/20 10:57 DC 10/04/20 08:08 Magnesium Gluconate (Magnesium Gluconate) 250 mg BID PO 09/28/20 21:00 10/04/20 08:06 Magnesium Chloride (Slow-Mag) 64 mg DAILY PO 09/29/20 09:00 09/28/20 17:36 DC Metformin HCl (Glucophage) 500 mg BID@08,18 PO 09/28/20 18:00 10/04/20 10:57 DC 10/04/20 08:06 Metoprolol Tartrate (Lopressor) 25 mg BID PO 09/28/20 21:00 10/04/20 10:57 DC 10/04/20 08:07 Metoprolol Tartrate (Lopressor) 25 mg TID PO 10/04/20 16:00 Oxycodone HCl (Roxicodone, Oxyir) 5 mg Q4HP PRN PO PAIN 09/28/20 17:00 09/30/20 06:24 Pantoprazole Sodium (Protonix) 40 mg DAILY PO 09/29/20 09:00 10/04/20 08:05 Senna (Senokot) 1 tab QHS PO 09/28/20 21:00 10/02/20 21:57 Tamsulosin HCl (Flomax) 0.4 mg DAILY PO 09/29/20 09:00 10/04/20 08:06 Vitamin B Complex/ Vitamin C (Therapeutic B Complex w/C) 1 cap DAILY PO 09/29/20 09:00 10/04/20 08:06 EDINSON BOO MD Oct 04, 2020 15:46
[2020-10-04 20:30] VITALS: BP 138/62
[2020-10-04] MEDS: SENNA 8.6 MG TAB (SENOKOT) PO SCH (21:25)
[2020-10-05 06:00] VITALS: BP 123/67
[2020-10-05] MEDS: REMEDY PHYTOPLEX Z-GUARD PASTE 113GM TUBE (FROM STOREROOM PRODUCT) TOP SCH ×3 (09:00→21:17)
[2020-10-05] MEDS: TAMSULOSIN 0.4 MG CAP PO SCH (09:38)
[2020-10-05] MEDS: DOCUSATE SODIUM 100MG CAPSULE PO SCH ×2 (09:38→21:14)
[2020-10-05] MEDS: PANTOPRAZOLE 40MG TAB (PROTONIX) PO SCH (09:38)
[2020-10-05] MEDS: ASPIRIN 81 MG ENTERIC TAB PO SCH (09:38)
[2020-10-05] MEDS: HumaLOG INSULIN (NovoLOG) PER UNIT SC SCH ×4 (09:38→21:00)
[2020-10-05] MEDS: ATORVASTATIN 20 MG TAB PO SCH (09:38)
[2020-10-05] MEDS: APIXABAN 5 MG TAB (ELIQUIS) PO SCH ×2 (09:39→21:14)
[2020-10-05] MEDS: MAGNESIUM GLUCONATE 500 MG TAB PO SCH ×2 (09:39→21:15)
[2020-10-05] MEDS: VITAMIN B COMPLEX/VIT C CAP PO SCH (09:39)
[2020-10-05] MEDS: ACETAMINOPHEN 500 MG TAB PO SCH ×3 (09:39→21:14)
[2020-10-05] MEDS: DULoxetine 20 MG CAP (CYMBALTA) PO SCH (09:39)
[2020-10-05] MEDS: METOPROLOL TART 25 MG TABLET PO SCH ×3 (09:40→20:05)
[2020-10-05] MEDS: LISINOPRIL *2.5 MG* TAB PO SCH (09:40)
[2020-10-05 10:27] LABS: CALCIUM LEVEL 8.4 MG/DL (8.8-10.2); CREATININE FOR GFR 1.49 MG/DL (0.70-1.30); GLOMERULAR FILTRATION RATE 47.8 (>35); POTASSIUM SERUM 4.2 MEQ/L (3.5-5.1)
[2020-10-05] MEDS ORDERED: NS 1,000 ML IV ONE (11:00)
--- NOTE | 2020-10-05 12:07 | IPNPDOC ---
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 He says he is still having some ph antom pain and cannot say if it is better since getting CYmbalta this morning. REVIEW OF SYSTEMS: The following is a completed review of systems and has been reviewed. Review of systems otherwise unremarkable. PAIN: Patient self reports minimal residual limb pain EYES: No recent vision changes EARS, NOSE, & THROAT: No throat pain, or dysphagia, or rhinorrhea CARDIOVASCULAR: Denies chest pain or palpitations PULMONARY: Denies shortness of breath GASTROINTESTINAL: Denies constipation GENITOURINARY: denies dysuria MUSCULOSKELETAL: right aka NEUROLOGICAL:+peripheral polyneuropathy HEMATOLOGICAL: +anemia SKIN: right aka incision PSYCHIATRIC: Unremarkable All other review of systems found to be negative. PHYSICAL EXAMINATION: VITAL SIGNS: Please see below. GENERAL: Pleasant and cooperative. No acute distress. HEENT: PERRL. Extraocular movements intact. Clear conjunctiva CARDIOVASCULAR: Regular rate and rhythm. No murmurs, rubs, or gallops LUNGS: Clear to auscultation bilaterally. No wheezes. No rhonchi. ABDOMEN: Soft, nontender, nondistended. Positive bowel sounds. Normal active bowel sounds NEUROLOGICAL: Alert and oriented times three. Cranial nerves II through XII grossly intact. Sensation grossly intact EXTREMITIES: 5\5 strength bilateral upper extremities. 5\5 strength righthip flexor 5/5 strength in left lower extremity. SKIN: right AKA incision c/d/i ASSESSMENT:85-year-old M with past medical history of DM, PVD, Afib who presents status post right AKA PLAN: 1. Rehab- PT/OT advance mobility and ADLs, teach limb care 2. Neuro- hx of peripheral polyneuropathy due to longstanding DM and PVD, c/u to optimize glucose management 3. Cardiac- hx of Afib and CAD, c.u eliquis, beta-[place]ol[place], medicine consulted to assist in overall management -HLD c/u statin 4. Vasc- hx of PVD s/p right AKA 09-27-20, vascular consulted, c/u daily wound care, off suppressive abx at this time, will c/u to monitor ESR/CRP and wbc 5. Endo- hx of DM c/u ISS, d/c'd metformin in setting of TRACY, well controlled FS and c/u diet controlled management 6. GI ppx- protonix -adding Glucerna to meals to increase caloric intake, patient reporting decreased taste- repeat Resp panel negative for covid 7. DVT ppx- on Eliquis for afib 8. Pain- Tylenol standing and oxycodone prn -c/u Cymbalta 20mg daily for phantom limb pain and to help with low mood, patient aware and agrees to trial of antidepressant 9. - monitor PVrs 10. Heme- hx of chronic anemia will consider transfusion if patient symptomatic, so far Hgb>8 11. Renal- TRACY, patient's lisinopril dose lowered and encouraged to drink more fluids, will give gentle hydration today and c/u to monitor renal function 10. Dispo- TBD Allergies Coded Allergies: No Known Allergies (Unverified , 04/01/20) Vital Signs Vital Signs Date Time Temp Pulse Resp B/P (MAP) Pulse Ox O2 Delivery O2 Flow Rate FiO2 10/05/20 09:40 81 125/64 10/05/20 06:00 97.7 18 100 10/04/20 20:30 Room Air Laboratory Data CBC/BMP Laboratory Tests 10/05/20 09:15 Labs 24H Laboratory Tests 2 10/04/20 16:50: Bedside Glucose (Misc Panel) 158H 10/04/20 21:03: Bedside Glucose (Misc Panel) 147H 10/05/20 06:08: Bedside Glucose (Misc Panel) 193H 10/05/20 09:15: Anion Gap 12, Glomerular Filtration Rate 47.8, Calcium Level 8.4L 10/05/20 11:25: Bedside Glucose (Misc Panel) 181H Microbiology Microbiology 10/03/20 Respiratory Virus Panel (PCR) ([facility]) - Final, Complete Current Medications Current Medications Current Medications Medications (Trade) Dose Ordered Sig/Nicholas Route PRN Reason Start Time Stop Time Status Last Admin Dose Admin Acetaminophen (Tylenol Tab) 1,000 mg TID PO 09/28/20 21:00 10/05/20 09:39 Apixaban (Eliquis) 5 mg BID PO 09/28/20 21:00 10/05/20 09:39 Aspirin (Ecotrin) 81 mg DAILY PO 09/29/20 09:00 10/05/20 09:38 Atorvastatin Calcium (Lipitor) 40 mg DAILY PO 09/29/20 09:00 10/05/20 09:38 Bisacodyl (Dulcolax Suppository) 10 mg DAILYPRN PRN [place] CONSTIPATION 10/04/20 10:15 Bisacodyl (Dulcolax Tab) 10 mg DAILYPRN PRN PO CONSTIPATION 09/30/20 13:00 10/04/20 08:10 Dextrose (Dextrose 50%) 25 ml ASDIRECTED PRN IV SEE LABEL COMMENTS 09/28/20 17:00 Docusate Sodium (Colace) 100 mg BID PO 09/28/20 21:00 10/05/20 09:38 Duloxetine HCl (Cymbalta) 20 mg DAILY PO 10/04/20 09:00 10/05/20 09:39 Glucagon (Glucagon) 1 mg ASDIRECTED PRN SC SEE LABEL COMMENTS 09/28/20 17:00 Glucose (Glucose) 16 GM ASDIRECTED PRN PO SEE LABEL COMMENTS 09/28/20 17:00 Home Med (Med Rec Complete!) ASDIRECTED XX 09/28/20 18:00 09/28/20 18:01 DC Insulin Human Lispro (HumaLOG INSULIN) SEE PROTOCOL TABLE AC SC 09/28/20 17:30 10/05/20 09:38 Insulin Human Lispro (HumaLOG INSULIN) SEE PROTOCOL TABLE QHS SC 09/28/20 21:00 09/28/20 20:54 Lisinopril (Prinivil) 2.5 mg DAILY PO 10/05/20 09:00 10/05/20 09:40 Lisinopril (Prinivil) 10 mg DAILY PO 09/29/20 09:00 10/04/20 10:57 DC 10/04/20 08:08 Magnesium Gluconate (Magnesium Gluconate) 250 mg BID PO 09/28/20 21:00 10/05/20 09:39 Magnesium Chloride (Slow-Mag) 64 mg DAILY PO 09/29/20 09:00 09/28/20 17:36 DC Metformin HCl (Glucophage) 500 mg BID@08,18 PO 09/28/20 18:00 10/04/20 10:57 DC 10/04/20 08:06 Metoprolol Tartrate (Lopressor) 25 mg BID PO 09/28/20 21:00 10/04/20 10:57 DC 10/04/20 08:07 Metoprolol Tartrate (Lopressor) 25 mg TID PO 10/04/20 16:00 10/05/20 09:40 Oxycodone HCl (Roxicodone, Oxyir) 5 mg Q4HP PRN PO PAIN 09/28/20 17:00 09/30/20 06:24 Pantoprazole Sodium (Protonix) 40 mg DAILY PO 09/29/20 09:00 10/05/20 09:38 Senna (Senokot) 1 tab QHS PO 09/28/20 21:00 10/04/20 21:25 Tamsulosin HCl (Flomax) 0.4 mg DAILY PO 09/29/20 09:00 10/05/20 09:38 Vitamin B Complex/ Vitamin C (Therapeutic B Complex w/C) 1 cap DAILY PO 09/29/20 09:00 10/05/20 09:39 EDINSON BOO MD Oct 05, 2020 12:07
[2020-10-05 14:00] VITALS: BP 94/52
[2020-10-05 20:00] VITALS: BP_SYST 54; BP_SYST 84; BP_DIAS 50; BP_DIAS 51
[2020-10-05 21:00] VITALS: BP 106/62
[2020-10-05] MEDS: SENNA 8.6 MG TAB (SENOKOT) PO SCH (21:14)
[2020-10-05 23:38] VITALS: BP 102/66
[2020-10-06] VITALS (12 sets, daily range): BP systolic 96–132; BP diastolic 53–75
[2020-10-06 06:52] LABS: HEMATOCRIT 24.8 % (42.0-52.0); HEMOGLOBIN 7.7 g/dl (13.5-17.5); MEAN CORPUSCULAR VOLUME 90.2 fl (80.0-96.0); PLATELET COUNT, AUTOMATED 430 10^3/uL (150-450); RED BLOOD COUNT 2.75 10^6/uL (4.30-6.10); WHITE BLOOD COUNT 8.3 10^3/uL (4.0-10.0)
[2020-10-06 07:18] LABS: CALCIUM LEVEL 8.1 MG/DL (8.8-10.2); CREATININE FOR GFR 1.33 MG/DL (0.70-1.30); GLOMERULAR FILTRATION RATE 54.5 (>35); POTASSIUM SERUM 4.2 MEQ/L (3.5-5.1)
[2020-10-06 07:23] LABS: ANISOCYTOSIS 1+; EOSINOPHILS 3 % (0-3); LYMPHOCYTES 18 % (16-44); METAMYELOCYTES 1 % (0-0); MONOCYTES 7 % (0-5); NEUTROPHILS 70 % (28-66); OVALOCYTES 1+; PLATELET ESTIMATE NORMAL (NORMAL); POIKILOCYTOSIS 1+
[2020-10-06] MEDS: SUCRALFATE 1 GM TAB PO SCH ×4 (07:30→21:00)
[2020-10-06] MEDS: HumaLOG INSULIN (NovoLOG) PER UNIT SC SCH ×4 (08:35→21:00)
[2020-10-06] MEDS: METOPROLOL TART 25 MG TABLET PO SCH ×3 (08:35→20:59)
[2020-10-06] MEDS: MAGNESIUM GLUCONATE 500 MG TAB PO SCH ×2 (08:36→20:57)
[2020-10-06] MEDS: ASPIRIN 81 MG ENTERIC TAB PO SCH (08:36)
[2020-10-06] MEDS: VITAMIN B COMPLEX/VIT C CAP PO SCH (08:37)
[2020-10-06] MEDS: APIXABAN 5 MG TAB (ELIQUIS) PO SCH ×2 (08:37→20:58)
[2020-10-06] MEDS: PANTOPRAZOLE 40MG TAB (PROTONIX) PO SCH ×2 (08:37→20:58)
[2020-10-06] MEDS: LISINOPRIL *2.5 MG* TAB PO SCH (08:37)
[2020-10-06] MEDS: ATORVASTATIN 20 MG TAB PO SCH (08:37)
[2020-10-06] MEDS: DULoxetine 20 MG CAP (CYMBALTA) PO SCH (08:37)
[2020-10-06] MEDS: DOCUSATE SODIUM 100MG CAPSULE PO SCH ×2 (08:37→20:58)
[2020-10-06] MEDS: ACETAMINOPHEN 500 MG TAB PO SCH ×3 (08:37→21:00)
[2020-10-06] MEDS: TAMSULOSIN 0.4 MG CAP PO SCH (08:37)
[2020-10-06] MEDS: REMEDY PHYTOPLEX Z-GUARD PASTE 113GM TUBE (FROM STOREROOM PRODUCT) TOP SCH ×3 (08:38→21:01)
[2020-10-06] MEDS ORDERED: NS 1,000 ML IV ONE (09:00)
[2020-10-06 10:07] LABS: HEMATOCRIT 25.4 % (42.0-52.0); HEMOGLOBIN 7.6 g/dl (13.5-17.5)
--- NOTE | 2020-10-06 10:32 | IPNPDOC ---
PM&R Progress Note DATE OF SERVICE: Oct 06, 2020 Disaster Recovery Coordinator Progress Note Subjective: PAtient reporting he is still having phantom limb pain. He is agreeable to increasing his cymbalta dosing. He reports he thought he saw blood in his stool today when he wiped. REVIEW OF SYSTEMS: The following is a completed review of systems and has been reviewed. Review of systems otherwise unremarkable. PAIN: Patient self reports minimal residual limb pain EYES: No recent vision changes EARS, NOSE, & THROAT: No throat pain, or dysphagia, or rhinorrhea CARDIOVASCULAR: Denies chest pain or palpitations PULMONARY: Denies shortness of breath GASTROINTESTINAL: Denies constipation GENITOURINARY: denies dysuria MUSCULOSKELETAL: right aka NEUROLOGICAL:+peripheral polyneuropathy HEMATOLOGICAL: +anemia SKIN: right aka incision PSYCHIATRIC: Unremarkable All other review of systems found to be negative. PHYSICAL EXAMINATION: VITAL SIGNS: Please see below. GENERAL: Pleasant and cooperative. No acute distress. HEENT: PERRL. Extraocular movements intact. Clear conjunctiva CARDIOVASCULAR: Regular rate and rhythm. No murmurs, rubs, or gallops LUNGS: Clear to auscultation bilaterally. No wheezes. No rhonchi. ABDOMEN: Soft, nontender, nondistended. Positive bowel sounds. Normal active bowel sounds NEUROLOGICAL: Alert and oriented times three. Cranial nerves II through XII grossly intact. Sensation grossly intact EXTREMITIES: 5\5 strength bilateral upper extremities. 5\5 strength right hip flexor 5/5 strength in left lower extremity. SKIN: right AKA incision c/d/i sacral area without external hemorrhoids, no negrito/old blood noted ASSESSMENT:85-year-old M with past medical history of DM, PVD, Afib who presents status post right AKA PLAN: 1. Rehab- PT/OT advance mobility and ADLs, teach limb care 2. Neuro- hx of peripheral polyneuropathy due to longstanding DM and PVD, c/u to optimize glucose management 3. Cardiac- hx of Afib and CAD, c.u eliquis, beta-carolina, medicine consulted to assist in overall management -HLD c/u statin 4. Vasc- hx of PVD s/p right AKA 09-27-20, vascular consulted, c/u daily wound care, off suppressive abx at this time, will c/u to monitor ESR/CRP and wbc 5. Endo- hx of DM c/u ISS, d/c'd metformin in setting of TRACY, well controlled FS and c/u diet controlled management 6. GI ppx- protonix increased to BID and added sucralfate while on eliquis and ASA in setting of anemia- awaiting FOBT result -adding Glucerna to meals to increase caloric intake, patient reporting decreased taste- repeat Resp panel negative for covid 7. DVT ppx- on Eliquis for afib 8. Pain- Tylenol standing and oxycodone prn -will increase Cymbalta to 30mg daily for phantom limb pain and to help with mood 9. - monitor PVrs 10. Heme- hx of chronic anemia will consider transfusion if patient symptomatic,gb 7.6 today, patient denies feeling particularly fatigued, FOBT ordered to rule out GI bleed while on eliquis and ASA 11. Renal- TRACY, patient's lisinopril d/c'd will give another 1L of NS and c/u to monitor renal function 10. Dispo- TBD Allergies Coded Allergies: No Known Allergies (Unverified , 04/01/20) Vital Signs Vital Signs Date Time Temp Pulse Resp B/P (MAP) Pulse Ox O2 Delivery O2 Flow Rate FiO2 10/06/20 08:37 104/64 10/06/20 06:00 98.3 120 18 93 Room Air Laboratory Data CBC/BMP Laboratory Tests 10/06/20 06:21 10/06/20 09:37 Labs 24H Laboratory Tests 2 10/05/20 11:25: Bedside Glucose (Misc Panel) 181H 10/05/20 16:31: Bedside Glucose (Misc Panel) 209H 10/05/20 20:10: Bedside Glucose (Misc Panel) 164H 10/06/20 06:21: Immature Granulocyte % (Auto) , Neutrophils (%) (Auto) , Nucleated Red Blood Cells % (auto) 0.0, Neutrophils 70H, Band Neutrophils 1, Lymphocytes (Manual) 18, Monocytes (Manual) 7H, Eosinophils (Manual) 3, Metamyelocytes 1H, Poikilocytosis 1+, Anisocytosis 1+, Ovalocytes 1+, Platelet Estimate NORMAL, Anion Gap 8, Glomerular Filtration Rate 54.5, Calcium Level 8.1L Microbiology Microbiology 10/06/20 Stool Occult Blood (DIANA), Received Pending 10/03/20 Respiratory Virus Panel (PCR) (DIANA) - Final, Complete Current Medications Current Medications Current Medications Medications (Trade) Dose Ordered Sig/Nicholas Route PRN Reason Start Time Stop Time Status Last Admin Dose Admin Acetaminophen (Tylenol Tab) 1,000 mg TID PO 09/28/20 21:00 10/06/20 08:37 Apixaban (Eliquis) 5 mg BID PO 09/28/20 21:00 10/06/20 08:37 Aspirin (Ecotrin) 81 mg DAILY PO 09/29/20 09:00 10/06/20 08:36 Atorvastatin Calcium (Lipitor) 40 mg DAILY PO 09/29/20 09:00 10/06/20 08:37 Bisacodyl (Dulcolax Suppository) 10 mg DAILYPRN PRN ME CONSTIPATION 10/04/20 10:15 Bisacodyl (Dulcolax Tab) 10 mg DAILYPRN PRN PO CONSTIPATION 09/30/20 13:00 10/04/20 08:10 Dextrose (Dextrose 50%) 25 ml ASDIRECTED PRN IV SEE LABEL COMMENTS 09/28/20 17:00 Docusate Sodium (Colace) 100 mg BID PO 09/28/20 21:00 10/06/20 08:37 Duloxetine HCl (Cymbalta) 20 mg DAILY PO 10/04/20 09:00 10/06/20 08:37 Glucagon (Glucagon) 1 mg ASDIRECTED PRN SC SEE LABEL COMMENTS 09/28/20 17:00 Glucose (Glucose) 16 GM ASDIRECTED PRN PO SEE LABEL COMMENTS 09/28/20 17:00 Home Med (Med Rec Complete!) ASDIRECTED XX 09/28/20 18:00 09/28/20 18:01 DC Insulin Human Lispro (HumaLOG INSULIN) SEE PROTOCOL TABLE AC SC 09/28/20 17:30 10/06/20 08:35 Insulin Human Lispro (HumaLOG INSULIN) SEE PROTOCOL TABLE QHS SC 09/28/20 21:00 09/28/20 20:54 Lisinopril (Prinivil) 2.5 mg DAILY PO 10/05/20 09:00 10/06/20 09:02 DC 10/05/20 09:40 Lisinopril (Prinivil) 10 mg DAILY PO 09/29/20 09:00 10/04/20 10:57 DC 10/04/20 08:08 Magnesium Gluconate (Magnesium Gluconate) 250 mg BID PO 09/28/20 21:00 10/06/20 08:36 Magnesium Chloride (Slow-Mag) 64 mg DAILY PO 09/29/20 09:00 09/28/20 17:36 DC Metformin HCl (Glucophage) 500 mg BID@08,18 PO 09/28/20 18:00 10/04/20 10:57 DC 10/04/20 08:06 Metoprolol Tartrate (Lopressor) 25 mg BID PO 09/28/20 21:00 10/04/20 10:57 DC 10/04/20 08:07 Metoprolol Tartrate (Lopressor) 25 mg TID PO 10/04/20 16:00 10/06/20 08:35 Oxycodone HCl (Roxicodone, Oxyir) 5 mg Q4HP PRN PO PAIN 09/28/20 17:00 09/30/20 06:24 Pantoprazole Sodium (Protonix) 40 mg BID PO 10/06/20 21:00 Pantoprazole Sodium (Protonix) 40 mg DAILY PO 09/29/20 09:00 10/06/20 09:02 DC 10/06/20 08:37 Senna (Senokot) 1 tab QHS PO 09/28/20 21:00 10/05/20 21:14 Sucralfate (Carafate) 1 gm ACHS PO 10/06/20 07:30 Tamsulosin HCl (Flomax) 0.4 mg DAILY PO 09/29/20 09:00 10/06/20 08:37 Vitamin B Complex/ Vitamin C (Therapeutic B Complex w/C) 1 cap DAILY PO 09/29/20 09:00 10/06/20 08:37 EDINSON BOO MD Oct 06, 2020 10:32
[2020-10-06] MEDS: oxyCODONE 5MG TAB PO PRN ×3 (10:41→23:54)
[2020-10-06] MEDS ORDERED: diphenhydrAMINE 25MG CAP PO ONE (13:00)
[2020-10-06] MEDS ORDERED: ACETAMINOPHEN TAB 650MG DOSE (2X325MG) PO ONE (13:00)
--- NOTE | 2020-10-06 13:34 | IPNPDOC ---
Text Note Date of Service The patient was seen on 10/06/20. NOTE Subjective: Patient is an 85-year-old male who was sent to the emergency room by his waste/materials exchange specialist, Dr. Guadalupe for fever and altered mental status. Patient was admitted to the hospitalist service for further evaluation and treatment. Vascular surgery was consulted and patient was found to have advanced occlusive disease. Patient had under gone a right [id number] amputation. He was subsequently transitioned to acute rehabilitation unit for further rehabilitation Patient was seen and examined at the bedside. Currently patient is seen sitting up in his wheelchair watching television. He denies any chest pain, shortness of breath or palpitations. Denies any nausea, vomiting, abdominal pain, diarrhea, or urinary discomfort. Objective: Vitals (See below) General: Lying in bed, no acute distress, comfortable, Awake / Alert HEENT: NC, AT CVS: RRR, +S1S2 Lungs: Fair air entry b/l, no appreciable wheezing, rhonchi or rales Abdomen: Soft, ND, NT Extremities: Right [id number] amputation with dressing in place. Left lower extremity without any edema noted, - Calf tenderness Assessment and plan: Peripheral arterial disease - s/p R AKA - c/w ASA, Eliquis and Atorvastatin - Will have outpatient follow up with Vascular surgery - c/w PT and OT HTN - BP well controlled - c/w Lisinopril with hold parameters NIDDM2 - c/w ISS CAD - c/w Atorvastatin and ASA Generalized deconditioning A. fib - c/w rate control with metoprolol tartrate - c/w full anticoagulation with Eliquis BPH - c/w Tamsulosin Anemia - Will check Iron, B12, Folate, Reticulocyte count - Will check stool for occult blood - Will transfuse 2 units PRBC - Will repeat CBC post-transfusion GI prophylaxis - c/w Protonix and Carafate DVT prophylaxis - c/w full anticoagulation with Eliquis VS,Fishbone, I+O VS, Fishbone, I+O Laboratory Tests 10/06/20 06:21 10/06/20 09:37 Vital Signs Date Time Temp Pulse Resp B/P (MAP) Pulse Ox O2 Delivery O2 Flow Rate FiO2 10/06/20 11:40 18 Room Air 10/06/20 08:37 104/64 10/06/20 06:00 98.3 120 93 I&O- Last 24 Hours up to 6 AM 10/06/20 06:00 Intake Total 2370 ml Output Total 750 ml Balance 1620 ml DAVIE PPOE MD Oct 06, 2020 13:34
[2020-10-06 14:35] LABS: PERCENT SATURATION 16.2 % (19.7-50.0)
[2020-10-06 14:41] LABS: FOLATE 11.3 NG/ML (>5.4)
[2020-10-06] MEDS: SENNA 8.6 MG TAB (SENOKOT) PO SCH (20:58)
[2020-10-07 05:41] VITALS: BP 126/75
[2020-10-07] MEDS: VITAMIN B COMPLEX/VIT C CAP PO SCH (07:31)
[2020-10-07] MEDS: METOPROLOL TART 25 MG TABLET PO SCH ×3 (07:31→20:45)
[2020-10-07] MEDS: APIXABAN 5 MG TAB (ELIQUIS) PO SCH ×2 (07:31→20:43)
[2020-10-07] MEDS: ASPIRIN 81 MG ENTERIC TAB PO SCH (07:31)
[2020-10-07] MEDS: TAMSULOSIN 0.4 MG CAP PO SCH (07:31)
[2020-10-07] MEDS: SUCRALFATE 1 GM TAB PO SCH ×4 (07:31→20:43)
[2020-10-07] MEDS: MAGNESIUM GLUCONATE 500 MG TAB PO SCH ×2 (07:32→20:44)
[2020-10-07] MEDS: DOCUSATE SODIUM 100MG CAPSULE PO SCH ×2 (07:32→20:43)
[2020-10-07] MEDS: ATORVASTATIN 20 MG TAB PO SCH (07:32)
[2020-10-07] MEDS: DULoxetine 30 MG CAP (CYMBALTA) PO SCH (07:32)
[2020-10-07] MEDS: PANTOPRAZOLE 40MG TAB (PROTONIX) PO SCH ×2 (07:32→20:43)
[2020-10-07] MEDS: ACETAMINOPHEN 500 MG TAB PO SCH ×3 (07:32→20:44)
[2020-10-07] MEDS: REMEDY PHYTOPLEX Z-GUARD PASTE 113GM TUBE (FROM STOREROOM PRODUCT) TOP SCH ×3 (07:33→20:46)
[2020-10-07] MEDS: HumaLOG INSULIN (NovoLOG) PER UNIT SC SCH ×4 (07:33→20:46)
[2020-10-07 08:27] LABS: BASO % 0.4 % (0.0-1.0); EOS # 0.3 10^3/uL (0.0-0.5); EOS % 3.6 % (0.0-3.0); HEMATOCRIT 31.7 % (42.0-52.0); LYMPH # 1.8 10^3/uL (1.5-5.0); LYMPH % 22.9 % (24.0-44.0); MEAN CORPUSCULAR HEMOGLOBIN 28.1 pg (27.0-33.0); MEAN CORPUSCULAR HGB CONC 30.9 g/dl (32.0-36.5); MEAN CORPUSCULAR VOLUME 90.8 fl (80.0-96.0); MONO # 0.7 10^3/uL (0.0-0.8); MONO % 8.3 % (0.0-5.0); NEUTROPHILS # 4.9 10^3/uL (1.5-8.5); PLATELET COUNT, AUTOMATED 433 10^3/uL (150-450); RED BLOOD COUNT 3.49 10^6/uL (4.30-6.10); WHITE BLOOD COUNT 7.8 10^3/uL (4.0-10.0)
[2020-10-07 08:28] LABS: HEMOGLOBIN 9.8 g/dl (13.5-17.5)
[2020-10-07 08:40] LABS: CALCIUM LEVEL 7.9 MG/DL (8.8-10.2); CREATININE FOR GFR 1.3 MG/DL (0.70-1.30); POTASSIUM SERUM 4.6 MEQ/L (3.5-5.1)
[2020-10-07 09:26] VITALS: BP 112/63
[2020-10-07] MEDS: oxyCODONE 5MG TAB PO PRN (11:38)
[2020-10-07 14:00] VITALS: BP 88/53
[2020-10-07 15:15] VITALS: BP 139/83
[2020-10-07 16:57] VITALS: BP 136/83
--- NOTE | 2020-10-07 17:01 | IPNPDOC ---
Text Note Date of Service The patient was seen on 10/07/20. NOTE Subjective: Patient is an 85-year-old male who was sent to the emergency room by his network operations specialist, Dr. Guadalupe for fever and altered mental status. Patient was admitted to the hospitalist service for further evaluation and treatment. Vascular surgery was consulted and patient was found to have advanced occlusive disease. Patient had under gone a right [id number] amputation. He was subsequently transitioned to acute rehabilitation unit for further rehabilitation Patient was seen and examined at the bedside. Patient denies any problems this morning. Denies any CP, SOB, palpitations, N/V, abdominal pain, C/D. Has been working with PT. Objective: Vitals (See below) General: Lying in bed, appears to be comfortable, Awake / Alert HEENT: NC, AT CVS: +S1S2 Lungs: Fair air entry b/l, no auscultated wheezing / crackles / rhonchi Abdomen: Soft, non-distended, non-tender Extremities: Right AKA (Dressing in place / intact), LLE without any edema, - Calf tenderness Assessment and plan: Peripheral arterial disease - s/p R AKA - c/w ASA, Eliquis and Atorvastatin - Will have outpatient follow up with Vascular surgery - c/w PT and OT as per ARU HTN - BP well controlled - c/w Lisinopril with hold parameters NIDDM2 - c/w ISS CAD - c/w Atorvastatin and ASA Generalized deconditioning A. fib - c/w rate control with metoprolol tartrate - c/w full anticoagulation with Eliquis BPH - c/w Tamsulosin Anemia - Hg has improved appropriately - Iron panel consistent with deficiency - B12 / Folate are within normal limits - Stool for occult blood positive - s/p 2 units PRBC GI prophylaxis - c/w Protonix and Carafate DVT prophylaxis - c/w full anticoagulation with Eliquis VS,Fishbone, I+O VS, Fishbone, I+O Laboratory Tests 10/07/20 07:39 Vital Signs Date Time Temp Pulse Resp B/P (MAP) Pulse Ox O2 Delivery O2 Flow Rate FiO2 10/07/20 15:15 139/83 (101) 10/07/20 14:00 97.9 95 22 96 Room Air I&O- Last 24 Hours up to 6 AM 10/07/20 06:00 Intake Total 1870 ml Output Total 1475 ml Balance 395 ml DAVIE POPE MD Oct 07, 2020 17:01
[2020-10-07 18:03] LABS: BASO # 0.1 10^3/uL (0.0-0.2); BASO % 0.7 % (0.0-1.0); EOS # 0.4 10^3/uL (0.0-0.5); HEMATOCRIT 31.4 % (42.0-52.0); HEMOGLOBIN 9.6 g/dl (13.5-17.5); LYMPH # 2.3 10^3/uL (1.5-5.0); LYMPH % 26.3 % (24.0-44.0); MEAN CORPUSCULAR HEMOGLOBIN 27.7 pg (27.0-33.0); MEAN CORPUSCULAR HGB CONC 30.6 g/dl (32.0-36.5); MEAN CORPUSCULAR VOLUME 90.8 fl (80.0-96.0); MONO # 0.7 10^3/uL (0.0-0.8); MONO % 8.2 % (0.0-5.0); NEUTROPHILS # 4.9 10^3/uL (1.5-8.5); NEUTROPHILS % 56.7 % (36.0-66.0); PLATELET COUNT, AUTOMATED 437 10^3/uL (150-450); RED BLOOD COUNT 3.46 10^6/uL (4.30-6.10); WHITE BLOOD COUNT 8.7 10^3/uL (4.0-10.0)
[2020-10-07 20:00] VITALS: BP 117/56
[2020-10-07] MEDS: SENNA 8.6 MG TAB (SENOKOT) PO SCH (20:43)
[2020-10-08 05:40] VITALS: BP 126/82
[2020-10-08] MEDS: oxyCODONE 5MG TAB PO PRN ×4 (06:30→23:55)
[2020-10-08] MEDS: ASPIRIN 81 MG ENTERIC TAB PO SCH (07:20)
[2020-10-08] MEDS: VITAMIN B COMPLEX/VIT C CAP PO SCH (07:20)
[2020-10-08] MEDS: DULoxetine 30 MG CAP (CYMBALTA) PO SCH (07:20)
[2020-10-08] MEDS: HumaLOG INSULIN (NovoLOG) PER UNIT SC SCH ×4 (07:20→20:03)
[2020-10-08] MEDS: ATORVASTATIN 20 MG TAB PO SCH (07:20)
[2020-10-08] MEDS: ACETAMINOPHEN 500 MG TAB PO SCH ×3 (07:21→20:03)
[2020-10-08] MEDS: PANTOPRAZOLE 40MG TAB (PROTONIX) PO SCH ×2 (07:21→20:03)
[2020-10-08] MEDS: DOCUSATE SODIUM 100MG CAPSULE PO SCH ×2 (07:21→20:02)
[2020-10-08] MEDS: MAGNESIUM GLUCONATE 500 MG TAB PO SCH ×2 (07:21→20:03)
[2020-10-08] MEDS: SUCRALFATE 1 GM TAB PO SCH ×4 (07:21→20:02)
[2020-10-08] MEDS: REMEDY PHYTOPLEX Z-GUARD PASTE 113GM TUBE (FROM STOREROOM PRODUCT) TOP SCH ×3 (07:22→20:04)
[2020-10-08] MEDS: TAMSULOSIN 0.4 MG CAP PO SCH (07:22)
[2020-10-08] MEDS: METOPROLOL TART 25 MG TABLET PO SCH ×4 (07:22→23:56)
[2020-10-08] MEDS: APIXABAN 5 MG TAB (ELIQUIS) PO SCH ×2 (07:22→20:02)
[2020-10-08 12:07] VITALS: BP 102/67
[2020-10-08 14:00] VITALS: BP 139/78
--- NOTE | 2020-10-08 15:29 | IPNPDOC ---
Text Note Date of Service The patient was seen on 10/08/20. NOTE Subjective: Patient is an 85-year-old male who was sent to the emergency room by his work station support specialist, Dr. Guadalupe for fever and altered mental status. Patient was admitted to the hospitalist service for further evaluation and treatment. Vascular surgery was consulted and patient was found to have advanced occlusive disease. Patient had under gone a right [id number] amputation. He was subsequently transitioned to acute rehabilitation unit for further rehabilitation Patient was seen and examined at the bedside. Patient was seen sitting up in wheelchair. Denies any chest pain, shortness breath, palpitations, nausea, vomiting, abdominal pain or diarrhea. Objective: Vitals (See below) General: Sitting in wheelchair, no acute distress, comfortable, Awake / Alert HEENT: NC, AT CVS: +S1S2 Lungs: There appears to be fair air entry bilaterally without any evidence of rhonchi, crackles or wheezing Abdomen: Abdomen remains soft without any distention or tenderness Extremities: Right-sided [id number]-[id number] amputation and left leg without any edema Assessment and plan: Peripheral arterial disease - s/p R AKA - c/w ASA, Eliquis and Atorvastatin - Outpatient follow up with Vascular surgery on discharge - c/w PT and OT as per ARU HTN - BP remains well controlled - c/w Lisinopril with hold parameters NIDDM2 - c/w ISS CAD - c/w Atorvastatin and ASA Generalized deconditioning A. fib - Adjusted frequency of Metoprolol - c/w full anticoagulation with Eliquis BPH - c/w Tamsulosin Anemia - Hg has improved appropriately - Iron panel consistent with deficiency - B12 / Folate are within normal limits - Stool for occult blood positive - s/p 2 units PRBC GI prophylaxis - c/w Protonix and Carafate DVT prophylaxis - c/w full anticoagulation with Eliquis Disposition: - c/w PT and OT as per ARU - Disposition as per ARU Chad GARDNER, I+O VSChad, I+O Laboratory Tests 10/07/20 17:42 Vital Signs Date Time Temp Pulse Resp B/P (MAP) Pulse Ox O2 Delivery O2 Flow Rate FiO2 10/08/20 14:00 98.0 60 20 139/78 (98) 99 Room Air I&O- Last 24 Hours up to 6 AM 10/08/20 06:00 Intake Total 340 ml Output Total 1250 ml Balance -910 ml DAVIE POPE MD Oct 08, 2020 15:29
[2020-10-08 17:13] VITALS: BP 143/90
[2020-10-08] MEDS: SENNA 8.6 MG TAB (SENOKOT) PO SCH (20:02)
[2020-10-08 20:15] VITALS: BP 101/63
[2020-10-09 05:44] VITALS: BP 145/81
[2020-10-09] MEDS: METOPROLOL TART 25 MG TABLET PO SCH ×4 (05:47→23:47)
[2020-10-09 07:01] LABS: BASO % 0.2 % (0.0-1.0); EOS # 0.4 10^3/uL (0.0-0.5); EOS % 5.1 % (0.0-3.0); HEMATOCRIT 30.4 % (42.0-52.0); HEMOGLOBIN 9.3 g/dl (13.5-17.5); LYMPH # 1.4 10^3/uL (1.5-5.0); LYMPH % 17.1 % (24.0-44.0); MEAN CORPUSCULAR HEMOGLOBIN 28.1 pg (27.0-33.0); MEAN CORPUSCULAR HGB CONC 30.6 g/dl (32.0-36.5); MEAN CORPUSCULAR VOLUME 91.8 fl (80.0-96.0); MONO # 0.8 10^3/uL (0.0-0.8); MONO % 10.2 % (0.0-5.0); NEUTROPHILS # 5.1 10^3/uL (1.5-8.5); NEUTROPHILS % 63.2 % (36.0-66.0); PLATELET COUNT, AUTOMATED 405 10^3/uL (150-450); RED BLOOD COUNT 3.31 10^6/uL (4.30-6.10)
[2020-10-09 07:26] LABS: BLOOD UREA NITROGEN 19 MG/DL (7-18); CALCIUM LEVEL 7.9 MG/DL (8.8-10.2); CARBON DIOXIDE LEVEL 25 MEQ/L (21-32); CHLORIDE LEVEL 102 MEQ/L (98-107); CREATININE FOR GFR 1.15 MG/DL (0.70-1.30); GLOMERULAR FILTRATION RATE > 60.0 (>35); GLUCOSE, FASTING 197 MG/DL (70-100); POTASSIUM SERUM 4.7 MEQ/L (3.5-5.1); SODIUM LEVEL 133 MEQ/L (136-145)
[2020-10-09] MEDS: DOCUSATE SODIUM 100MG CAPSULE PO SCH ×2 (08:44→21:21)
[2020-10-09] MEDS: HumaLOG INSULIN (NovoLOG) PER UNIT SC SCH ×4 (08:44→21:00)
[2020-10-09] MEDS: VITAMIN B COMPLEX/VIT C CAP PO SCH (08:45)
[2020-10-09] MEDS: TAMSULOSIN 0.4 MG CAP PO SCH (08:45)
[2020-10-09] MEDS: PANTOPRAZOLE 40MG TAB (PROTONIX) PO SCH ×2 (08:45→21:23)
[2020-10-09] MEDS: DULoxetine 30 MG CAP (CYMBALTA) PO SCH (08:45)
[2020-10-09] MEDS: ASPIRIN 81 MG ENTERIC TAB PO SCH (08:45)
[2020-10-09] MEDS: ATORVASTATIN 20 MG TAB PO SCH (08:46)
[2020-10-09] MEDS: APIXABAN 5 MG TAB (ELIQUIS) PO SCH ×2 (08:46→21:22)
[2020-10-09] MEDS: SUCRALFATE 1 GM TAB PO SCH ×4 (08:46→21:24)
[2020-10-09] MEDS: MAGNESIUM GLUCONATE 500 MG TAB PO SCH ×2 (08:46→21:22)
[2020-10-09] MEDS: ACETAMINOPHEN 500 MG TAB PO SCH ×3 (08:47→21:24)
[2020-10-09] MEDS: REMEDY PHYTOPLEX Z-GUARD PASTE 113GM TUBE (FROM STOREROOM PRODUCT) TOP SCH ×3 (08:47→21:24)
[2020-10-09] MEDS: BISACODYL 5 MG TAB PO PRN (09:00)
[2020-10-09] MEDS: oxyCODONE 5MG TAB PO PRN ×2 (09:01→21:23)
--- NOTE | 2020-10-09 12:36 | IPNPDOC ---
PM&R Progress Note DATE OF SERVICE: Oct 09, 2020 Spooler Operator Automatic Progress Note Subjective: PAtient reporting he has improved taste and appetite. He states he has had an EGD and colonoscopy a few years back and discussed his internal hemorrhoids with Dr. De La Cruz. He feels his family will be able to help him at his current functional level when he is home. REVIEW OF SYSTEMS: The following is a completed review of systems and has been reviewed. Review of systems otherwise unremarkable. PAIN: Patient self reports minimal residual limb pain EYES: No recent vision changes EARS, NOSE, & THROAT: No throat pain, or dysphagia, or rhinorrhea CARDIOVASCULAR: Denies chest pain or palpitations PULMONARY: Denies shortness of breath GASTROINTESTINAL: Denies constipation GENITOURINARY: denies dysuria MUSCULOSKELETAL: right aka NEUROLOGICAL:+peripheral polyneuropathy HEMATOLOGICAL: +anemia SKIN: right aka incision PSYCHIATRIC: Unremarkable All other review of systems found to be negative. PHYSICAL EXAMINATION: VITAL SIGNS: Please see below. GENERAL: Pleasant and cooperative. No acute distress. HEENT: PERRL. Extraocular movements intact. Clear conjunctiva CARDIOVASCULAR: Regular rate and rhythm. No murmurs, rubs, or gallops LUNGS: Clear to auscultation bilaterally. No wheezes. No rhonchi. ABDOMEN: Soft, nontender, nondistended. Positive bowel sounds. Normal active bowel sounds NEUROLOGICAL: Alert and oriented times three. Cranial nerves II through XII grossly intact. Sensation grossly intact EXTREMITIES: 5\5 strength bilateral upper extremities. 5\5 strength right hip flexor 5/5 strength in left lower extremity. SKIN: right AKA incision c/d/i sacral area without external hemorrhoids, no negrito/old blood noted ASSESSMENT:85-year-old M with past medical history of DM, PVD, Afib who presents status post right AKA PLAN: 1. Rehab- PT/OT advance mobility and ADLs, teach limb care 2. Neuro- hx of peripheral polyneuropathy due to longstanding DM and PVD, c/u to optimize glucose management 3. Cardiac- hx of Afib and CAD, c.u eliquis, beta-carolina, medicine consulted to assist in overall management -HLD c/u statin 4. Vasc- hx of PVD s/p right AKA 09-27-20, vascular consulted, c/u daily wound care, off suppressive abx at this time, will c/u to monitor ESR/CRP and wbc 5. Endo- hx of DM c/u ISS, d/c'd metformin in setting of TRACY, well controlled FS and c/u diet controlled management 6. GI ppx- protonix increased to BID and added sucralfate while on eliquis and ASA in setting of anemia- -FOBT positive, patient reports he was seen by Dr. De La Cruz for scoping a few years back, will set up another appointment at d/c, patient clinically stable while on ASA and eliquis -c/u Glucerna to meals to increase caloric intake, patient reporting decreased taste- repeat Resp panel negative for covid 7. DVT ppx- on Eliquis for afib 8. Pain- Tylenol standing and oxycodone prn -c/u Cymbalta to 30mg daily for phantom limb pain and to help with mood-patient reports his appetite is improving 9. - monitor PVrs 10. Heme- hx of chronic anemia will consider s/p 2 units prbcs 10-06-20 with Hgb today 9.3 -low Iron, will start pral supplement 11. Renal- TRACY, patient's lisinopril d/c'd, s/p IVF renal function improved 10. Dispo- TBD Allergies Coded Allergies: No Known Allergies (Unverified , 04/01/20) Vital Signs Vital Signs Date Time Temp Pulse Resp B/P (MAP) Pulse Ox O2 Delivery O2 Flow Rate FiO2 10/09/20 10:18 18 Room Air 10/09/20 05:47 80 145/81 10/09/20 05:44 97.9 96 Laboratory Data CBC/BMP Laboratory Tests 10/09/20 06:28 Labs 24H Laboratory Tests 2 10/08/20 16:53: Bedside Glucose (Misc Panel) 192H 10/08/20 19:46: Bedside Glucose (Misc Panel) 197H 10/09/20 06:28: Immature Granulocyte % (Auto) 4.2H, Neutrophils (%) (Auto) 63.2, Lymphocytes (%) (Auto) 17.1L, Monocytes (%) (Auto) 10.2H, Eosinophils (%) (Auto) 5.1H, Basophils (%) (Auto) 0.2, Neutrophils # (Auto) 5.1, Lymphocytes # (Auto) 1.4L, Monocytes # (Auto) 0.8, Eosinophils # (Auto) 0.4, Basophils # (Auto) 0.0, Nucleated Red Blood Cells % (auto) 0.0, Anion Gap 6L, Glomerular Filtration Rate > 60.0, Calcium Level 7.9L 10/09/20 11:53: Bedside Glucose (Misc Panel) 64L Microbiology Microbiology 10/06/20 Stool Occult Blood (DIANA) - Final, Complete 10/03/20 Respiratory Virus Panel (PCR) (DIANA) - Final, Complete Current Medications Current Medications Current Medications Medications (Trade) Dose Ordered Sig/Nicholas Route PRN Reason Start Time Stop Time Status Last Admin Dose Admin Acetaminophen (Tylenol Tab) 1,000 mg TID PO 09/28/20 21:00 10/09/20 08:47 Apixaban (Eliquis) 5 mg BID PO 09/28/20 21:00 10/09/20 08:46 Aspirin (Ecotrin) 81 mg DAILY PO 09/29/20 09:00 10/09/20 08:45 Atorvastatin Calcium (Lipitor) 40 mg DAILY PO 09/29/20 09:00 10/09/20 08:46 Bisacodyl (Dulcolax Suppository) 10 mg DAILYPRN PRN ME CONSTIPATION 10/04/20 10:15 Bisacodyl (Dulcolax Tab) 10 mg DAILYPRN PRN PO CONSTIPATION 09/30/20 13:00 10/09/20 09:00 Dextrose (Dextrose 50%) 25 ml ASDIRECTED PRN IV SEE LABEL COMMENTS 09/28/20 17:00 Docusate Sodium (Colace) 100 mg BID PO 09/28/20 21:00 10/09/20 08:44 Duloxetine HCl (Cymbalta) 20 mg DAILY PO 10/04/20 09:00 10/06/20 10:27 DC 10/06/20 08:37 Duloxetine HCl (Cymbalta) 30 mg DAILY PO 10/07/20 09:00 10/09/20 08:45 Glucagon (Glucagon) 1 mg ASDIRECTED PRN SC SEE LABEL COMMENTS 09/28/20 17:00 Glucose (Glucose) 16 GM ASDIRECTED PRN PO SEE LABEL COMMENTS 09/28/20 17:00 Home Med (Med Rec Complete!) ASDIRECTED XX 09/28/20 18:00 09/28/20 18:01 DC Insulin Human Lispro (HumaLOG INSULIN) SEE PROTOCOL TABLE AC SC 09/28/20 17:30 10/09/20 08:44 Insulin Human Lispro (HumaLOG INSULIN) SEE PROTOCOL TABLE QHS SC 09/28/20 21:00 09/28/20 20:54 Lisinopril (Prinivil) 2.5 mg DAILY PO 10/05/20 09:00 10/06/20 09:02 DC 10/05/20 09:40 Lisinopril (Prinivil) 10 mg DAILY PO 09/29/20 09:00 10/04/20 10:57 DC 10/04/20 08:08 Magnesium Gluconate (Magnesium Gluconate) 250 mg BID PO 09/28/20 21:00 10/09/20 08:46 Magnesium Chloride (Slow-Mag) 64 mg DAILY PO 09/29/20 09:00 09/28/20 17:36 DC Metformin HCl (Glucophage) 500 mg BID@,18 PO 09/28/20 18:00 10/04/20 10:57 DC 10/04/20 08:06 Metoprolol Tartrate (Lopressor) 25 mg BID PO 09/28/20 21:00 10/04/20 10:57 DC 10/04/20 08:07 Metoprolol Tartrate (Lopressor) 25 mg Q6H PO 10/08/20 12:00 10/09/20 05:47 Metoprolol Tartrate (Lopressor) 25 mg TID PO 10/04/20 16:00 10/08/20 07:24 DC 10/08/20 07:22 Oxycodone HCl (Roxicodone, Oxyir) 5 mg Q4HP PRN PO PAIN 09/28/20 17:00 10/09/20 09:01 Pantoprazole Sodium (Protonix) 40 mg BID PO 10/06/20 21:00 10/09/20 08:45 Pantoprazole Sodium (Protonix) 40 mg DAILY PO 09/29/20 09:00 10/06/20 09:02 DC 10/06/20 08:37 Senna (Senokot) 1 tab QHS PO 09/28/20 21:00 10/08/20 20:02 Sucralfate (Carafate) 1 gm ACHS PO 10/06/20 07:30 10/09/20 08:46 Tamsulosin HCl (Flomax) 0.4 mg DAILY PO 09/29/20 09:00 10/09/20 08:45 Vitamin B Complex/ Vitamin C (Therapeutic B Complex w/C) 1 cap DAILY PO 09/29/20 09:00 10/09/20 08:45 EDINSON BOO MD Oct 09, 2020 12:36
[2020-10-09 14:00] VITALS: BP 125/79
--- NOTE | 2020-10-09 17:59 | IPNPDOC ---
Text Note Date of Service The patient was seen on 10/09/20. NOTE Subjective: Patient is an 85-year-old male who was sent to the emergency room by his account development specialist, Dr. Guadalupe for fever and altered mental status. Patient was admitted to the hospitalist service for further evaluation and treatment. Vascular surgery was consulted and patient was found to have advanced occlusive disease. Patient had under gone a right [id number] amputation. He was subsequently transitioned to acute rehabilitation unit for further rehabilitation Patient was seen and examined at the bedside. Patient was laying in bed, does not appear to be in any distress, watching television reports he's had an uneventful day and has been working with physical therapy. He denies any chest pain, abdominal pain, diarrhea, or urinary discomfort. Objective: Vitals (See below) General: Lying in bed watching television, appears comfortable, awake and alert HEENT: NC, AT CVS: +S1S2 Lungs: Air entry is fair bilaterally without any auscultated crackles or wheezing Abdomen: There is no distention or tenderness of abdomen and he remains soft Extremities: Right AKA, left leg without edema Assessment and plan: Peripheral arterial disease - s/p R AKA - c/w ASA, Eliquis and Atorvastatin - Outpatient follow up with Vascular surgery on discharge - c/w PT and OT as per ARU; appears to be doing well HTN - BP remains well controlled - c/w Lisinopril with hold parameters NIDDM2 - c/w ISS CAD - c/w Atorvastatin and ASA Generalized deconditioning A. fib - Rate remains well controlled - Adjusted frequency of Metoprolol - c/w full anticoagulation with Eliquis BPH - c/w Tamsulosin Anemia - Hg has improved appropriately / remains stable - Iron panel consistent with deficiency - B12 / Folate are within normal limits - Stool for occult blood positive - s/p 2 units PRBC GI prophylaxis - c/w Protonix and Carafate DVT prophylaxis - c/w full anticoagulation with Eliquis Disposition: - c/w PT and OT as per ARU - Disposition as per ARU VS,Chad, I+O VS, Tarunbone, I+O Laboratory Tests 10/09/20 06:28 Vital Signs Date Time Temp Pulse Resp B/P (MAP) Pulse Ox O2 Delivery O2 Flow Rate FiO2 10/09/20 16:52 61 125/79 10/09/20 14:00 98.2 20 100 Room Air I&O- Last 24 Hours up to 6 AM 10/09/20 05:59 Intake Total 1200 ml Output Total 1025 ml Balance 175 ml DAVIE POPE MD Oct 09, 2020 17:59
[2020-10-09 21:00] VITALS: BP 147/88
[2020-10-09] MEDS: SENNA 8.6 MG TAB (SENOKOT) PO SCH (21:21)
[2020-10-09] MEDS: FERROUS SULFATE 325MG TAB PO SCH (21:22)
[2020-10-10 06:00] VITALS: BP 142/80
[2020-10-10] MEDS: METOPROLOL TART 25 MG TABLET PO SCH ×4 (06:11→23:58)
[2020-10-10] MEDS: HumaLOG INSULIN (NovoLOG) PER UNIT SC SCH ×4 (07:36→21:00)
[2020-10-10] MEDS: MAGNESIUM GLUCONATE 500 MG TAB PO SCH ×2 (07:38→21:23)
[2020-10-10] MEDS: ATORVASTATIN 20 MG TAB PO SCH (07:38)
[2020-10-10] MEDS: SUCRALFATE 1 GM TAB PO SCH ×4 (07:38→21:22)
[2020-10-10] MEDS: ASPIRIN 81 MG ENTERIC TAB PO SCH (07:38)
[2020-10-10] MEDS: VITAMIN B COMPLEX/VIT C CAP PO SCH (07:38)
[2020-10-10] MEDS: TAMSULOSIN 0.4 MG CAP PO SCH (07:39)
[2020-10-10] MEDS: PANTOPRAZOLE 40MG TAB (PROTONIX) PO SCH ×2 (07:39→21:24)
[2020-10-10] MEDS: FERROUS SULFATE 325MG TAB PO SCH ×2 (07:39→21:22)
[2020-10-10] MEDS: APIXABAN 5 MG TAB (ELIQUIS) PO SCH ×2 (07:39→21:22)
[2020-10-10] MEDS: DULoxetine 30 MG CAP (CYMBALTA) PO SCH (07:39)
[2020-10-10] MEDS: DOCUSATE SODIUM 100MG CAPSULE PO SCH ×2 (07:39→21:23)
[2020-10-10] MEDS: REMEDY PHYTOPLEX Z-GUARD PASTE 113GM TUBE (FROM STOREROOM PRODUCT) TOP SCH ×3 (07:40→21:25)
[2020-10-10] MEDS: ACETAMINOPHEN 500 MG TAB PO SCH ×3 (07:40→21:24)
[2020-10-10] MEDS ORDERED: PANT40TA29 PO (09:16)
[2020-10-10] MEDS ORDERED: ELIQ5TAB PO (09:16)
[2020-10-10] MEDS ORDERED: FERR325T18 PO (09:16)
[2020-10-10] MEDS ORDERED: CYMB1CAP5 PO (09:16)
[2020-10-10] MEDS ORDERED: SUCR1TA PO (09:16)
[2020-10-10] MEDS ORDERED: TAMS1CAP17 PO (09:16)
[2020-10-10] MEDS ORDERED: ATOR40TA75 PO (09:16)
[2020-10-10] MEDS ORDERED: ASPI81TAEC PO (09:16)
[2020-10-10] MEDS ORDERED: METO1TAB87 PO (09:16)
[2020-10-10] MEDS ORDERED: MAGN50TA PO (09:16)
--- NOTE | 2020-10-10 12:21 | IPNPDOC ---
PM&R Progress Note DATE OF SERVICE: Oct 10, 2020 Gear Hobber Progress Note Subjective: PAtient reporting he feels ok today and is waiting for his daughter to come do family training. REVIEW OF SYSTEMS: The following is a completed review of systems and has been reviewed. Review of systems otherwise unremarkable. PAIN: Patient self reports minimal residual limb pain EYES: No recent vision changes EARS, NOSE, & THROAT: No throat pain, or dysphagia, or rhinorrhea CARDIOVASCULAR: Denies chest pain or palpitations PULMONARY: Denies shortness of breath GASTROINTESTINAL: Denies constipation GENITOURINARY: denies dysuria MUSCULOSKELETAL: right aka NEUROLOGICAL:+peripheral polyneuropathy HEMATOLOGICAL: +anemia SKIN: right aka incision PSYCHIATRIC: Unremarkable All other review of systems found to be negative. PHYSICAL EXAMINATION: VITAL SIGNS: Please see below. GENERAL: Pleasant and cooperative. No acute distress. HEENT: PERRL. Extraocular movements intact. Clear conjunctiva CARDIOVASCULAR: Regular rate and rhythm. No murmurs, rubs, or gallops LUNGS: Clear to auscultation bilaterally. No wheezes. No rhonchi. ABDOMEN: Soft, nontender, nondistended. Positive bowel sounds. Normal active bowel sounds NEUROLOGICAL: Alert and oriented times three. Cranial nerves II through XII grossly intact. Sensation grossly intact EXTREMITIES: 5\5 strength bilateral upper extremities. 5\5 strength right hip flexor 5/5 strength in left lower extremity. SKIN: right AKA incision c/d/i sacral area without external hemorrhoids, no negrito/old blood noted ASSESSMENT:85-year-old M with past medical history of DM, PVD, Afib who presents status post right AKA PLAN: 1. Rehab- PT/OT advance mobility and ADLs, teach limb care-family training today 2. Neuro- hx of peripheral polyneuropathy due to longstanding DM and PVD, c/u to optimize glucose management 3. Cardiac- hx of Afib and CAD, c.u eliquis, beta-carolina, medicine consulted to assist in overall management -HLD c/u statin 4. Vasc- hx of PVD s/p right AKA 09-27-20, vascular consulted, c/u daily wound care, off suppressive abx at this time, will c/u to monitor ESR/CRP and wbc 5. Endo- hx of DM c/u ISS, d/c'd metformin in setting of TRACY, well controlled FS and c/u diet controlled management 6. GI ppx- protonix increased to BID and added sucralfate while on eliquis and ASA in setting of anemia- -FOBT positive, patient reports he was seen by Dr. De La Cruz for scoping a few years back, will set up another appointment at d/c, patient clinically stable while on ASA and eliquis -c/u Glucerna to meals to increase caloric intake, patient reporting decreased taste- repeat Resp panel negative for covid 7. DVT ppx- on Eliquis for afib 8. Pain- Tylenol standing and oxycodone prn -c/u Cymbalta to 30mg daily for phantom limb pain and to help with mood-patient reports his appetite is improving 9. - monitor PVrs 10. Heme- hx of chronic anemia will consider s/p 2 units prbcs 10-06-20 -low Iron, c/u oral supplement 11. Renal- TRACY, patient's lisinopril d/c'd, s/p IVF renal function improved 10. Dispo- 10-11-20 to home pending completion of family training todau Allergies Coded Allergies: No Known Allergies (Unverified , 04/01/20) Vital Signs Vital Signs Date Time Temp Pulse Resp B/P (MAP) Pulse Ox O2 Delivery O2 Flow Rate FiO2 10/10/20 06:11 99 142/80 10/10/20 06:00 97.5 18 99 Room Air Laboratory Data Labs 24H Laboratory Tests 2 10/09/20 16:17: Bedside Glucose (Misc Panel) 183H 10/09/20 20:25: Bedside Glucose (Misc Panel) 159H 10/10/20 05:36: Bedside Glucose (Misc Panel) 172H 10/10/20 11:13: Bedside Glucose (Misc Panel) 246H Microbiology Microbiology 10/06/20 Stool Occult Blood (DIANA) - Final, Complete 10/03/20 Respiratory Virus Panel (PCR) (DIANA) - Final, Complete Current Medications Current Medications Current Medications Medications (Trade) Dose Ordered Sig/Nicholas Route PRN Reason Start Time Stop Time Status Last Admin Dose Admin Acetaminophen (Tylenol Tab) 1,000 mg TID PO 09/28/20 21:00 10/10/20 07:40 Apixaban (Eliquis) 5 mg BID PO 09/28/20 21:00 10/10/20 07:39 Aspirin (Ecotrin) 81 mg DAILY PO 09/29/20 09:00 10/10/20 07:38 Atorvastatin Calcium (Lipitor) 40 mg DAILY PO 09/29/20 09:00 10/10/20 07:38 Bisacodyl (Dulcolax Suppository) 10 mg DAILYPRN PRN MS CONSTIPATION 10/04/20 10:15 Bisacodyl (Dulcolax Tab) 10 mg DAILYPRN PRN PO CONSTIPATION 09/30/20 13:00 10/09/20 09:00 Dextrose (Dextrose 50%) 25 ml ASDIRECTED PRN IV SEE LABEL COMMENTS 09/28/20 17:00 Docusate Sodium (Colace) 100 mg BID PO 09/28/20 21:00 10/10/20 07:39 Duloxetine HCl (Cymbalta) 20 mg DAILY PO 10/04/20 09:00 10/06/20 10:27 DC 10/06/20 08:37 Duloxetine HCl (Cymbalta) 30 mg DAILY PO 10/07/20 09:00 10/10/20 07:39 Ferrous Sulfate (Ferrous Sulfate) 325 mg BID PO 10/09/20 21:00 10/10/20 07:39 Glucagon (Glucagon) 1 mg ASDIRECTED PRN SC SEE LABEL COMMENTS 09/28/20 17:00 Glucose (Glucose) 16 GM ASDIRECTED PRN PO SEE LABEL COMMENTS 09/28/20 17:00 Home Med (Med Rec Complete!) ASDIRECTED XX 09/28/20 18:00 09/28/20 18:01 DC Insulin Human Lispro (HumaLOG INSULIN) SEE PROTOCOL TABLE AC SC 09/28/20 17:30 10/10/20 07:36 Insulin Human Lispro (HumaLOG INSULIN) SEE PROTOCOL TABLE QHS SC 09/28/20 21:00 09/28/20 20:54 Lisinopril (Prinivil) 2.5 mg DAILY PO 10/05/20 09:00 10/06/20 09:02 DC 10/05/20 09:40 Lisinopril (Prinivil) 10 mg DAILY PO 09/29/20 09:00 10/04/20 10:57 DC 10/04/20 08:08 Magnesium Gluconate (Magnesium Gluconate) 250 mg BID PO 09/28/20 21:00 10/10/20 07:38 Magnesium Chloride (Slow-Mag) 64 mg DAILY PO 09/29/20 09:00 09/28/20 17:36 DC Metformin HCl (Glucophage) 500 mg BID@08,18 PO 09/28/20 18:00 10/04/20 10:57 DC 10/04/20 08:06 Metoprolol Tartrate (Lopressor) 25 mg BID PO 09/28/20 21:00 10/04/20 10:57 DC 10/04/20 08:07 Metoprolol Tartrate (Lopressor) 25 mg Q6H PO 10/08/20 12:00 10/10/20 06:11 Metoprolol Tartrate (Lopressor) 25 mg TID PO 10/04/20 16:00 10/08/20 07:24 DC 10/08/20 07:22 Oxycodone HCl (Roxicodone, Oxyir) 5 mg Q4HP PRN PO PAIN 09/28/20 17:00 10/09/20 21:23 Pantoprazole Sodium (Protonix) 40 mg BID PO 10/06/20 21:00 10/10/20 07:39 Pantoprazole Sodium (Protonix) 40 mg DAILY PO 09/29/20 09:00 10/06/20 09:02 DC 10/06/20 08:37 Senna (Senokot) 1 tab QHS PO 09/28/20 21:00 10/09/20 21:21 Sucralfate (Carafate) 1 gm ACHS PO 10/06/20 07:30 10/10/20 07:38 Tamsulosin HCl (Flomax) 0.4 mg DAILY PO 09/29/20 09:00 10/10/20 07:39 Vitamin B Complex/ Vitamin C (Therapeutic B Complex w/C) 1 cap DAILY PO 09/29/20 09:00 10/10/20 07:38 EDINSON BOO MD Oct 10, 2020 12:21
[2020-10-10 14:00] VITALS: BP 135/79
[2020-10-10] MEDS: SENNA 8.6 MG TAB (SENOKOT) PO SCH (21:22)
[2020-10-10 21:28] VITALS: BP 156/68
[2020-10-11] MEDS: METOPROLOL TART 25 MG TABLET PO SCH ×2 (06:08→12:19)
[2020-10-11 06:09] VITALS: BP 134/80
[2020-10-11 06:59] LABS: HEMATOCRIT 30.7 % (42.0-52.0); HEMOGLOBIN 9.6 g/dl (13.5-17.5); MEAN CORPUSCULAR HEMOGLOBIN 28.7 pg (27.0-33.0); MEAN CORPUSCULAR HGB CONC 31.3 g/dl (32.0-36.5); MEAN CORPUSCULAR VOLUME 91.9 fl (80.0-96.0); PLATELET COUNT, AUTOMATED 406 10^3/uL (150-450); RED BLOOD COUNT 3.34 10^6/uL (4.30-6.10); WHITE BLOOD COUNT 7.5 10^3/uL (4.0-10.0)
[2020-10-11 07:24] LABS: BLOOD UREA NITROGEN 14 MG/DL (7-18); CALCIUM LEVEL 8.3 MG/DL (8.8-10.2); CARBON DIOXIDE LEVEL 26 MEQ/L (21-32); CHLORIDE LEVEL 101 MEQ/L (98-107); CREATININE FOR GFR 1.04 MG/DL (0.70-1.30); GLOMERULAR FILTRATION RATE > 60.0 (>35); GLUCOSE, FASTING 213 MG/DL (70-100); POTASSIUM SERUM 4.5 MEQ/L (3.5-5.1); SODIUM LEVEL 133 MEQ/L (136-145)
[2020-10-11 07:41] LABS: BASOPHILS 2 % (0-1); EOSINOPHILS 9 % (0-3); LYMPHOCYTES 20 % (16-44); MONOCYTES 7 % (0-5); MYELOCYTES 1 % (0-0); NEUTROPHILS 61 % (28-66)
[2020-10-11 07:42] LABS: ANISOCYTOSIS 1+; PLATELET ESTIMATE NORMAL (NORMAL)
[2020-10-11 07:43] LABS: POIKILOCYTOSIS 1+
[2020-10-11 07:44] LABS: OVALOCYTES 1+
[2020-10-11] MEDS: TAMSULOSIN 0.4 MG CAP PO SCH (08:15)
[2020-10-11] MEDS: ATORVASTATIN 20 MG TAB PO SCH (08:15)
[2020-10-11] MEDS: PANTOPRAZOLE 40MG TAB (PROTONIX) PO SCH (08:15)
[2020-10-11] MEDS: DULoxetine 30 MG CAP (CYMBALTA) PO SCH (08:15)
[2020-10-11] MEDS: MAGNESIUM GLUCONATE 500 MG TAB PO SCH (08:15)
[2020-10-11] MEDS: FERROUS SULFATE 325MG TAB PO SCH (08:15)
[2020-10-11] MEDS: APIXABAN 5 MG TAB (ELIQUIS) PO SCH (08:15)
[2020-10-11] MEDS: SUCRALFATE 1 GM TAB PO SCH ×2 (08:16→12:19)
[2020-10-11] MEDS: HumaLOG INSULIN (NovoLOG) PER UNIT SC SCH ×2 (08:16→12:20)
[2020-10-11] MEDS: ACETAMINOPHEN 500 MG TAB PO SCH (08:16)
[2020-10-11] MEDS: ASPIRIN 81 MG ENTERIC TAB PO SCH (08:17)
[2020-10-11] MEDS: REMEDY PHYTOPLEX Z-GUARD PASTE 113GM TUBE (FROM STOREROOM PRODUCT) TOP SCH (08:17)
[2020-10-11] MEDS: VITAMIN B COMPLEX/VIT C CAP PO SCH (08:17)
[2020-10-11] MEDS: DOCUSATE SODIUM 100MG CAPSULE PO SCH (08:17)
[2020-10-11 12:16] VITALS: BP 145/74
[2020-10-11 12:19] VITALS: BP 145/74
== END 2020-10-11 13:05 | disposition home health service (06) | DRG 561 ==
LOC: M PM&R 16:10
PROVIDERS: ADMIT Physical Medicine & Rehabilitation; ATTEND Physical Medicine & Rehabilitation
PROC: 30233N1 Transfusion of Nonautologous Red Blood Cells into Peripheral Vein, Percutaneous Approach (ICD-10-PCS; principal; 2020-10-06)
DX: Z47.81 Encounter for orthopedic aftercare following surgical amputation (principal); E11.51 Type 2 diabetes mellitus with diabetic peripheral angiopathy without gangrene; E11.40 Type 2 diabetes mellitus with diabetic neuropathy, unspecified; I25.10 Atherosclerotic heart disease of native coronary artery without angina pectoris; I10 Essential (primary) hypertension; I48.91 Unspecified atrial fibrillation; D64.9 Anemia, unspecified; M47.816 Spondylosis without myelopathy or radiculopathy, lumbar region; Z96.651 Presence of right artificial knee joint; Z95.1 Presence of aortocoronary bypass graft; Z98.62 Peripheral vascular angioplasty status; Z74.09 Other reduced mobility; Z89.611 Acquired absence of right leg above knee; Z79.01 Long term (current) use of anticoagulants; Z79.84 Long term (current) use of oral hypoglycemic drugs; Z79.899 Other long term (current) drug therapy; N40.0 Benign prostatic hyperplasia without lower urinary tract symptoms

== ENCOUNTER → 2020-12-01 | Outpatient (CLI) | payer MEDICARE, OTHER ==
[~2020-12-01] MED LIST changes: +ASPI81TAEC PO; +ATOR40TA75 PO; +CYMB1CAP5 PO; +DULO30CA9 PO; +ECOT81TA5 PO; +FERR325T18 PO; +FERR325T3 PO; +FLOM0.4C39 PO; +GABA-282; -GABA-843; -LISI-542; +LISI-898; +LISI10TA22 PO; -LISI10TA4 PO; +MAGN50TA PO; +METO1TAB87 PO; +PANT-23 PO; +SUCR1TA PO; +SUCR1TAB56 PO; +TRAD5TAB PO
== END ==
LOC: M LABSMTC 12:33
PROVIDERS: ATTEND Anesthesiology
DX: Z01.812 Encounter for preprocedural laboratory examination (principal); Z20.822 Contact with and (suspected) exposure to COVID-19

== ENCOUNTER 2020-12-05 17:21 | Inpatient (IN) | payer MEDICARE, OTHER ==
[~2020-12-05] VITALS: Ht 180.3 cm; Wt 76.9 kg
[~2020-12-05 17:21] MED LIST changes: -DULO30CA9 PO; -ECOT81TA5 PO; -FERR325T3 PO; -FLOM0.4C39 PO; -PANT-23 PO; -SUCR1TAB56 PO
--- OUTSIDE RECORDS SUMMARY | 2020-12-05 17:30 | CCD | Continuity of Care Document ---
Author Author Chapo DE LA CRUZ DO Organization Unknown Address [address] [facility], [address] [place] [address] Phone [phone] Care Team Providers Care Can Crimper Name Role Phone Gabriella Baires M.D. [facility] [phone] Problems Active Problems Provider Date Essential hypertension Sarath De La Cruz DO Onset: 6 Social History Type Date Description Comments Sex Unknown ETOH Use Denies alcohol use Recreational Drug Use Denies Drug Use Tobacco Use Start: Unknown Denies Smoking Smoking Status Reviewed: 11/14/20 Denies Smoking Allergies, Adverse Reactions, Alerts Description No Known Drug Allergies Medications Active Medications SIG Qnty Indications Ordering Provide r Date Coral Calcium Capsules 1 by mouth twice a day Unknown [place] 3-6-9 W/Borage & Flax Seed 1200mg Capsules 1 PO Daily Unknown Vitamin B-Complex Tablets twice a day Unknown Metoprolol Tartrate 25mg Tablets 1 tab q6h Unknown Eliquis 5mg Tablets Take 1 Tablet By Mouth Twice Daily Unknown Aspirin [address] take 1 tab by mouth daily Unknown Pantoprazole Sodium 40mg Tablets D R 1 by mouth 2 x every day Unknown Iron (Ferrous Sulfate) 325(65Fe) mg Tablets 1 bid Unknown Tamsulosin HCL 0.4mg Capsules 1 qd Unknown Duloxetine HCL 30mg Caps DR Part 1 qd Unknown Sucralfate 1gm Tablets take 1 tablet by mouth 4 x a day Unknown Atorvastatin Calcium 40mg Tablets 1 qd Unknown Magnesium 500mg Tablets 1 bid Unknown Gabapentin 100mg Capsules 1 by mouth three times a day Unknown Tradjenta 5mg Tablets 1 qd Unknown Glipizide 5mg Tablets 1 qd Unknown Immunizations Description No Information Available Vital Signs Date Vital Result Comment 11/16/2020 2:44pm BP Systolic 116 mmHg BP Diastolic 70 mmHg Height 70 inches 5'10" Weight 194.00 lb BMI (Body Mass Index) 27.8 kg/m2 [place] Body Weight 166 lb Weight 87.998 kg BSA (Body Surface Area) 2.06 m2 11/14/2020 11:18am BP Systolic 120 mmHg BP Diastolic 60 mmHg Height 70 inches 5'10" Weight 195.25 lb BMI (Body Mass Index) 28.0 kg/m2 [place] Body Weight 166 lb Weight 88.565 kg BSA (Body Surface Area) 2.07 m2 Results Description No Information Available Procedures Date Code Description Status 09/27/2020 39862 Amputation Above Knee Completed Medical Devices Description No Information Available Encounters Type Date Location Provider Dx Diagnosis Office Visit 10/24/2020 11:45a [facility] KIMMY Rocha Z89.611 Acquired absence of right leg above knee I70.202 Unsp athscl [place] arteries of extremities, left leg Z47.81 Encounter for orthopedic aft ercare following surgical amp Assessments Date Code Description Provider 11/14/2020 Z89.611 Acquired absence of right leg ab ove knee KIMMY Grullon 11/14/2020 I70.202 Unspecified atherosc lerosis of [place] arteries of extremities, left leg KIMMY Grullon 10/24/2020 Z89.611 Acquired absence of right leg ab ove knee KIMMY Grullon 10/24/2020 I70.202 Unspecified atherosc lerosis of [place] arteries of extremities, left leg KIMMY Grullon 10/24/2020 Z47.81 Encounter for orthop edic aftercare following surgical amputation KIMMY Grullon 09/27/2020 I70.235 Atherosclerosis of n ative arteries of right leg with ulceration of other part of foot Cayla Fraser MD 09/27/2020 L97.519 Non-pressure chronic ulcer of other part of right foot with unspecified severity Cayla Cederstrand, MD Plan of Treatment No Information Available Functional Status Description No Information Available Mental Status Description No Information Available Referrals Description No Information Available
--- OUTSIDE RECORDS SUMMARY | 2020-12-05 17:30 | CCD | Continuity of Care Document ---
Author Author Chapo TURNER DPM Organization Unknown Address [address] [place] [address], [facility] [address] [place] [address] Phone [phone] Care Team Providers Care Data Base Design Analyst Name Role Phone Gabriella Baires MD AUTM [phone] DR. Singh AUTM [phone] Problems Active Problems Provider Date Onychomycosis Renan Turner DPM Onset: 10/28/2018 Type 2 diabetes mellitus with diabetic polyneuropathy Renan Turner DPM Onset: 10/28/2018 Corns and callosities Renan Turner DPM Onset: 10/28/2018 Social History Type Date Description Comments Sex Unknown ETOH Use Currently consumes alcohol Tobacco Use Start: Unknown Patient has never smoked Allergies, Adverse Reactions, Alerts Description No Known Drug Allergies Medications Active Medications SIG Qnty Indications Ordering Provide r Date Metoprolol Tartrate 50mg Tablets Gabriella Baires MD Glipizide 5mg Tablets Gabriella Baires MD Metformin HCL 500mg Tablets Gabriella Baires MD Hydrocortisone 1% Cream Gabriella Baires MD Tamsulosin HCL 0.4mg Capsules Unknown Eliquis 5mg Tablets Gabriella Baires MD Immunizations Description No Information Available Vital Signs Date Vital Result Comment 08/10/2018 2:25pm Height 71 inches 5'11" Weight 205.00 lb BP Systolic 148 mmHg BP Diastolic 70 mmHg Heart Rate 62 /min BMI (Body Mass Index) 28.6 kg/m2 Results Description No Information Available Procedures Date Code Description Status 08/14/2020 01631 Debridement 6-10 Nails Electric Completed 08/14/2020 79453 Paring/Cutting Benign Single Les n Completed 06/05/2020 97053 Debridement 6-10 Nails Electric Completed 06/05/2020 53739 Paring/Cut Benign Lesion 2 To 4 Completed Medical Devices Description No Information Available Encounters Description No Information Available Assessments Date Code Description Provider 08/14/2020 B35.1 Tinea unguium Renan Turner DPM 08/14/2020 E11.42 Type 2 diabetes mellitus with di abetic polyneuropathy Renan Turner, UZAIR 08/14/2020 L84 Corns and callosities Renan Turner DPM 06/05/2020 B35.1 Tinea unguium Renan Turner DPM 06/05/2020 E11.42 Type 2 diabetes mellitus with di abetic polyneuropathy Renan Turner DPM 06/05/2020 L84 Corns and callosities Renan Turner DPM Plan of Treatment Future Appointment(s):* 01/15/2021 2:00 pm - Renan Turner DPM at [facility] Functional Status Description No Information Available Mental Status Description No Information Available Referrals Description No Information Available
--- OUTSIDE RECORDS SUMMARY | 2020-12-05 17:30 | CCD ---
Author Author [facility] Organization [facility] Address Unknown Phone Unavailable Care Team Providers Care Bottling Line Attendant Name Role Phone Gabriella Baires Unavailable PROBLEMS Type Condition ICD9-CM Code [id number] Code Onset Dates Condition S tatus W/U Status Risk SNOMED Code Notes Problem Type 2 diabetes mellitus wit h diabetic nephropathy, 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 Active confirmed 7013633 6 Problem Epidermal cyst of neck L72.0 Active confirmed 764997913 Problem Non-seasonal allergic rhinitis, unspecified trigger J30.89 Active confirmed 39851478 Problem Xerosis cutis L85.3 Active confirmed 548271 00 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 confirmed 011959142 Problem Seborrheic keratoses L82.1 Active confirmed 725638726 Problem Dermatofibroma D23.9 Active confirmed 80644 6000 Problem Atherosclerosis of [place] ar teries of right leg with ulceration of other part of foot I70.235 Active confirmed 040949885 Problem 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 Active confirmed 589796624 Problem Chronic venous hypertension (idiopathic) with ulcer of 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 Active confirmed 166653078955584 Problem Coronary artery disease invo lving coronary bypass graft of [place] heart without angina pectoris I25.810 Active confirmed 365604 002 Problem Nephrolithiasis N20.0 Active confirmed 9557 0007 Problem Essential hypertension I10 Active confirmed 43083159 Problem Paronychia of fifth toe of left foot L03.032 Act chase confirmed 97962512926452326 Problem Macrocytosis D75.89 Active confirmed 9559561 00 Problem Type 2 diabetes mellitus with foot ulcer E11.621 Active confirmed 084092120 Problem 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 Act [place] confirmed 972294310 Problem Atherosclerosis of [place] teries of right leg with ulceration of other part of lower leg I70.238 Active confirmed 828905632 Problem 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 Active confirmed 173569885 Problem 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 Active confirmed 051103914 Problem Anemia D64.9 Active confirmed 894702643 Problem Type 2 diabetes mellitus wit h diabetic polyneuropathy, 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 Active confirmed 6328023 6 Problem Lumbosacral spondylosis with radiculopathy M47.27 Active confirmed 269366855 Problem Cellulitis of right lower extremity L03.115 Acti ve confirmed 713443567 Problem Cellulitis, unspecified cellulitis site L03.90 Active confirmed 525079991 Problem Adjustment disorder, unspecified type F43.20 Ac tive confirmed 20904778 Problem Phantom limb pain G54.6 Active confirmed 57 68964322230 Problem Peripheral vascular disease I73.9 Active confirmed 167084467 Problem Benign prostatic hyperplasia without lower urina ry tract symptoms N40.0 Active confirmed 488542391 Problem Pruritus L29.9 Active confirmed 783666466 Problem Typical atrial flutter I48.3 Active confirmed 965587191 Problem Poorly controlled diabetes mellitus E11.65 Acti ve confirmed 991069817 Problem 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 Active confirmed 567992889 Problem Longstanding persistent atrial fibrillation I48.11 Active confirmed 001574917 Problem Gastritis, presence of bleed ing unspecified, unspecified chronicity, unspecified gastritis type K29.70 Active confirmed 196 395328 ALLERGIES No Known Allergies ENCOUNTERS from 1936 to 2020-11-24 Encounter Location Date Provider Diagnosis [facility] [address] [place] [address] Nov, Gabriella Baires IMMUNIZATIONS Vaccine Route Administration Date Status Influenza (Denied) Unknown Sep 03, 2018 Refused Influenza (Pharmacy Given) Unknown Aug 01, 2020 Refus ed Influenza (Pharmacy Given) Unknown Aug 01, 2020 Refus ed Influenza (18 yrs & older) Flublok IM Intramuscular March 19, 20 19 Administered Pneumococcal Adult 0.5mL (Pneumovax 23) IM Intramuscular December 182018 Administered Influenza (6mo & up) Fluzone Unknown Jul 11, 2016 Oth ers SOCIAL HISTORY Tobacco Use: Social History Observation Description Date Details (start date - stop date) Never Smoker Sex Assigned At : Social History Observation Description Sex Assigned At Unknown Education: Question Answer Notes Level of Education: Finished High School Audit Question Answer Notes Total Score: 0 Interpretation: Alcohol Education Language: Question Answer Notes Languages spoken: Turkish Confucianist: Question Answer Notes Confucianist 34 None Sexual Hx: Question Answer Notes Had sex in the last 12 months (vaginal, oral, or anal)? No Have you ever had an STD? No Drug and Alcohol Question Answer Notes Total Score: 0 Interpretation: No problems reported BMI Care Goal Follow-Up Question Answer Notes Above Normal BMI Follow-Up Dietary management educatio n, guidance, and counseling Tobacco Use: Question Answer Notes Are you a: never smoker REASON FOR REFERRAL No Information VITAL SIGNS No information MEDICATIONS Medication SIG (Take, Route, Frequency, Duration) Notes Start Da te End Date Status Fish Oil 1 capsule Orally Twice a day Active Atorvastatin Calcium 40 MG 1 tablet Orally Once a day for 90 days Active Vitamin B Complex - 1 tab Orally Daily Active Iron 65 MG 1 tablet Orally Every other day for 90 days Active Coral Calcium Active Pantoprazole Sodium 40 MG 1 tablet Orally Once a day for 90 days Active Duloxetine HCl 30 MG 1 capsule Orally Once a day for 90 day(s) Active GlipiZIDE 5MG 1/2 tab Orally Once a day for 90 day(s) Active Tradjenta 5 MG 1 tablet Orally Once a day Oct, Active Eliquis 5 MG as directed Orally bid for 90 days Active Sucralfate 1 GM 1 tablet on an empty stomach Orally befo re bedtime for 90 days Active Tamsulosin HCl 0.4 MG 1 capsule Orally Once a day for 90 days Active Metoprolol Tartrate 50 MG 1 tablet with food Orally Twice a day for 90 days Active Gabapentin 100 MG 1 capsule Orally three times daily for 90 days Active Cinnamon 500 MG 1 tab Orally Daily A ctive ReliOn Blood Glucose Test - as directed In Vitro bid for 30 day( s) Dec, Active PROCEDURES No Information RESULTS No Results REASON FOR VISIT FINGERSTIK MEDICAL (GENERAL) HISTORY Type Description Date Medical History HTN Medical History Diabetes Medical History Hiatal hernia Medical History CAD (JEROME 2010), Paroxsymal a-fib/flutte r Medical History Ulnar nerve transplant 2014 Medical History kidney stones Medical History Actinic keratosis Medical History Anemia Medical History atrial flutter Medical History 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, long-standing Medical History peripheral vascular disease Surgical History Back surgery Surgical History Right knee replacement Surgical History Toes straightened Surgical History Bilaterial carpel tunnel surgery Surgical History Heart bypass surgery Surgical History Nerve in right elbow Surgical History ureteroscopy/laser lithotripsy 12/19/2017 Surgical History Angioplasty 04/2020 Surgical History right leg lower amputation 09/2020 Hospitalization History [facility] 05/04/2020 Goals Section No Information Health Concerns No Information MEDICAL EQUIPMENT No Information MENTAL STATUS No Information FUNCTIONAL STATUS No Information ASSESSMENTS No Information PLAN OF TREATMENT Medication Medication Name Sig Start Date Stop Date Duloxetine HCl 30 MG 1 capsule Orally Once a day for 90 day(s) Gabapentin 100 MG 1 capsule Orally three times daily for 90 days Iron 65 MG 1 tablet Orally Every other day for 90 days Atorvastatin Calcium 40 MG 1 tablet Orally Once a day for 90 day s Pantoprazole Sodium 40 MG 1 tablet Orally Once a day for 90 days Sucralfate 1 GM 1 tablet on an empty stomach Orally befo re bedtime for 90 days Metoprolol Tartrate 50 MG 1 tablet with food Orally Twice a day for 90 days Tamsulosin HCl 0.4 MG 1 capsule Orally Once a day for 90 days Eliquis 5 MG as directed Orally bid for 90 days GlipiZIDE 5MG 1/2 tab Orally Once a day for 90 day(s) Tradjenta 5 MG 1 tablet Orally Once a day Oct, Insurance Providers Payer Name Payer Address Payer Phone Insured Name Patient Relati onship to Insured Coverage Start Date Coverage End Date [facility] [address] [id number] [facility] [phone] LOC GUTIERREZ [id number] MEDICARE Part A and B [address] [place] [id number] LOC GUTIERREZ self 1995
--- OUTSIDE RECORDS SUMMARY | 2020-12-05 17:30 | CCD | Continuity of Care Document ---
Author Author Chapo WARREN PA Organization Unknown Address [address] [facility] [address] [place] [address] Phone [phone] Care Team Providers Care Senior Lead Software Engineer Name Role Phone Gabriella Baires M.D. AUT[facility] [phone] Problems Active Problems Provider Date Essential hypertension Sarath De La Cruz DO Onset: 6 Social History Type Date Description Comments Sex Unknown ETOH Use Denies alcohol use Recreational Drug Use Denies Drug Use Tobacco Use Start: Unknown Denies Smoking Smoking Status Reviewed: 10/24/20 Denies Smoking Allergies, Adverse Reactions, Alerts Description No Known Drug Allergies Medications Active Medications SIG Qnty Indications Ordering Provide r Date Coral Calcium Capsules 1 by mouth twice a day Unknown Outlook 3-6-9 W/Borage & Flax Seed 1200mg Capsules [...] Available Vital Signs Date Vital Result Comment 11/14/2020 11:18am BP Systolic 120 mmHg BP Diastolic 60 mmHg Height 70 inches 5'10" Weight 195.25 lb BMI (Body Mass Index) 28.0 kg/m2 [place] Body Weight 166 lb Weight 88.565 kg BSA (Body Surface Area) 2.07 m2 10/24/2020 12:14pm BP Systolic 94 mmHg BP Diastolic 64 mmHg Height 70 inches 5'10" Weight 196.00 lb BMI (Body Mass Index) 28.1 kg/m2 [place] Body Weight 166 lb Weight 88.906 kg BSA (Body Surface Area) 2.07 m2 Results Description No Information Available Procedures Date Code Description Status 09/27/2020 18795 Amputation Above Knee Completed Medical Devices Description No Information Available Encounters Type Date Location Provider Dx Diagnosis Office Visit 10/24/2020 11:45a [facility] KIMMY Rocha Z89.611 Acquired absence of right leg above knee I70.202 Unsp athscl [place] arteries of extremities, left leg Z47.81 Encounter for orthopedic aft ercare following surgical amp Assessments Date Code Description Provider 10/24/2020 Z89.611 Acquired absence of right leg ab ove knee KIMMY Grullon 10/24/2020 I70.202 Unspecified atherosc lerosis of [place] arteries of extremities, left leg KIMMY Grullon 10/24/2020 Z47.81 Encounter for orthop edic aftercare following surgical amputation KIMMY Grullon 09/27/2020 I70.235 Atherosclerosis of n ative arteries of right leg with ulceration of other part of foot Cayla Fraser MD 09/27/2020 L97.519 Non-pressure chronic ulcer of other part of right foot with unspecified severity Cayla Fraser MD Plan of Treatment Future Appointment(s):* 11/16/2020 9:40 am - Sarath De La Cruz DO at [facility] Functional Status Description No Information Available Mental Status Description No Information Available Referrals Description No Information Available
--- OUTSIDE RECORDS SUMMARY | 2020-12-05 17:30 | CCD ---
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 Active 611276463 Problem Type 2 diabetes mellitus wit h diabetic nephropathy, 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 Active 97054033 Problem Nephrolithiasis N20.0 Active 01166215 Problem Epidermal cyst of neck L72.0 Active 514347655 Problem Non-seasonal allergic rhinitis, unspecified trigger J30.89 Active 98161566 Problem Type 2 diabetes mellitus wit h diabetic polyneuropathy, 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 Active 78384401 Problem 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 Active 196290860 Problem Anemia D64.9 Active 844147477 Problem Lumbosacral spondylosis with radiculopathy M47.27 Active 357212340 Problem Pruritus L29.9 Active 039495007 Problem Seborrheic keratoses L82.1 Active 836704424 Problem Typical atrial flutter I48.3 Active 182509974 Problem Peripheral vascular disease I73.9 Active 4000 22919 Problem Paronychia of fifth toe of left foot L03.032 Active 66565571976075006 Problem Macrocytosis D75.89 Active 736986201 Problem Type 2 diabetes mellitus with foot ulcer E11.621 Active 154011210 Problem 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 Act chase 011245221 Problem Atherosclerosis of [place] ter[place] of right leg with ulceration of other part of lower leg I70.238 Active 708083608 Problem 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 Active 552830735 Problem Chronic venous hypertension (idiopathic) with ulcer of 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 Active 015516757045169 Problem 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 Active 228204665 Problem Xerosis cutis L85.3 Active 59882759 Problem Poorly controlled diabetes mellitus E11.65 Acti ve 100452331 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 571315966 Problem Dermatofibroma D23.9 Active 370208943 Problem Atherosclerosis of [place] of right leg with ulceration of other part of foot I70.235 Active 328647678 Problem Cellulitis of right lower extremity L03.115 Acti ve 986872401 Problem Cellulitis, unspecified cellulitis site L03.90 Active 495411349 Problem Adjustment disorder, unspecified type F43.20 Ac tive 23276151 ALLERGIES No Known Allergies ENCOUNTERS from 1935 to 2020-11-02 Encounter Location Date Provider Diagnosis [facility] [address] [place] [address] Oct, Gabriella Baires Above knee amputation of right lower ext remity S78.111A IMMUNIZATIONS Vaccine Route Administration Date Status Influenza (Denied) Unknown Sep 03, 2018 Refused Influenza (Pharmacy Given) Unknown Aug 01, 2020 Refus ed Influenza (Pharmacy Given) Unknown Aug 01, 2020 Refus ed Influenza (18 yrs & older) Flublok IM Intramuscular January 05 Administered Pneumococcal Adult 0.5mL (Pneumovax 23) IM [...] Education Language: Question Answer Notes Languages spoken: Georgian Orthodoxy: Question Answer Notes Orthodoxy 33 None Sexual Hx: Question Answer Notes [...] Notes Start Da te End Date Status Vitamin B Complex - 1 tab Orally Daily Active Ginkgo Biloba 60 MG 1 tab Orally Daily Active Cinnamon 500 MG 1 tab Orally Daily A ctive Omeprazole 40 MG 1 capsule 30 minutes before morning meal Orally Sophia y Active Tramadol HCl 100 MG 1 tablet as needed Orally four times daily f or 14 days Sep, Not-Taking ReliOn Blood Glucose Test - as directed In Vitro bid for 30 day( s) Dec, Active DOK 100 MG 2 capsule Orally Once a day Active Eliquis 5 MG as directed Orally bid Active Metformin HCl 500 MG 2 tablet with a meal Orally bid Active Mag-Oxide 200 MG 2 tab Orally Daily Active Tamsulosin HCl 0.4 MG 1 capsule Orally Once a day for 30 day(s) Active Metoprolol Tartrate 50 MG 1/2 tablet with food Orally Twice a day for 90 Active Gabapentin 100 MG 1 capsule Orally three times daily for 30 days Active GlipiZIDE 5MG 1 tablet Orally twice a day Active Tradjenta 5 MG 1 tablet Orally Once a day Not-Taking Lisinopril 10 MG 1 tablet Orally before bedtime February, Active Fish Oil 1 capsule Orally Twice a day Active Tradjenta 5 MG 1 tablet Orally Once a day for 30 day(s) Oct, Active PROCEDURES No Information RESULTS No Results REASON FOR VISIT [facility] MEDICAL (GENERAL) HISTORY Type Description Date Medical History HTN Medical History Diabetes Medical History Hiatal hernia Medical History CAD (JEROME 2010), Paroxsymal a-fib/flutte r Medical History Ulnar nerve transplant 2014 Medical History kidney stones Medical History Actinic keratosis Medical History Anemia Medical History atrial flutter Medical History 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 [place] 05/04/2020 Goals Section No Information Health Concerns No Information MEDICAL EQUIPMENT No Information MENTAL STATUS No Information FUNCTIONAL STATUS No Information ASSESSMENTS Encounter Date Diagnosis Assessment Notes Treatment Notes Treatm ent Clinical Notes Oct, Above knee amputation of right lower ext remity (ICD-10 - S78.111A) PLAN OF TREATMENT Medication Medication Name Sig Start Date Stop Date Tradjenta 5 MG 1 tablet Orally Once a day for 30 day(s) Oct, Gabapentin 100 MG 1 capsule Orally three times daily for 30 days Next Appt Details Provider Name:Gabriella Baires, 2020-11-09 0 2:15:00 PM, [address] [place], [address], Insurance Providers Payer Name Payer Address Payer Phone Insured Name Patient Relati onship to Insured Coverage Start Date Coverage End Date MEDICARE Part A and B [address] [facility] [address] [place] self [facility] [address] [address] [facility] [address] LOC G[place]IER[place] [id number]
--- OUTSIDE RECORDS SUMMARY | 2020-12-05 17:30 | CCD ---
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 Active 71925076 Problem Epidermal cyst of neck L72.0 Active 248605206 Problem Non-seasonal allergic rhinitis, unspecified trigger J30.89 Active 60140036 Problem Xerosis cutis L85.3 Active 32839020 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 997729445 Problem Seborrheic keratoses L82.1 Active 837142295 Problem Dermatofibroma D23.9 Active 676641439 Problem Atherosclerosis of [place] of right leg with ulceration of other part of foot I70.235 Active 756332069 Problem 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 Active 871974286 Problem Chronic venous hypertension (idiopathic) with ulcer of 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 Active 520961877624469 Problem Coronary artery disease invo lving coronary bypass graft of [place] heart without angina pectoris I25.810 Active 185020656 Problem Nephrolithiasis N20.0 Active 04357085 Problem Essential hypertension I10 Active 30626258 Problem Paronychia of fifth toe of left foot L03.032 Active 19094619723739381 Problem Macrocytosis D75.89 Active 351879209 Problem Type 2 diabetes mellitus with foot ulcer E11.621 Active 370897462 Problem 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 Act chase 199709349 Problem Atherosclerosis of [place] of right leg with ulceration of other part of lower leg I70.238 Active 967341021 Problem 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 Active 279991003 Problem 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 Active 652034123 Problem Anemia D64.9 Active 031413494 Problem Type 2 diabetes mellitus wit h diabetic polyneuropathy, 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 Active 45853053 Problem Lumbosacral spondylosis with radiculopathy M47.27 Active 342913734 Problem Cellulitis of right lower extremity L03.115 Acti ve 949140948 Problem Cellulitis, unspecified cellulitis site L03.90 Active 533463654 Problem Adjustment disorder, unspecified type F43.20 Ac tive 74401317 Problem Phantom limb pain G54.6 Active 1318932835527 Problem Peripheral vascular disease I73.9 Active 4000 36775 Problem Benign prostatic hyperplasia without lower urina ry tract symptoms N40.0 Active 230926056 Problem Pruritus L29.9 Active 810383268 Problem Typical atrial flutter I48.3 Active 523328033 Problem Poorly controlled diabetes mellitus E11.65 Acti ve 961826914 Problem 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 Active 040414600 Problem Longstanding persistent atrial fibrillation I48.11 Active 322881519 Problem Gastritis, presence of bleed ing unspecified, unspecified chronicity, unspecified gastritis type K29.70 Active 342125240 ALLERGIES No Known Allergies ENCOUNTERS from 1935 to 2020-11-12 Encounter Location Date Provider Diagnosis [facility] [address] [place] [address] Oct, Gabriella Baires IMMUNIZATIONS Vaccine Route Administration Date Status Influenza (Denied) Unknown Sep 03, 2018 Refused Influenza (Pharmacy Given) Unknown Aug 01, 2020 Refus ed Influenza (Pharmacy Given) Unknown Aug 01, 2020 Refus ed Influenza (18 yrs & older) Flublok IM Intramuscular January 05 19 Administered Pneumococcal Adult 0.5mL (Pneumovax 23) [...] Education Language: Question Answer Notes Languages spoken: Hong Konger Jew: Question Answer Notes Jew 33 None Sexual Hx: Question Answer Notes [...] Information RESULTS No Results REASON FOR VISIT Blood sugar MEDICAL (GENERAL) HISTORY Type Description Date Medical [...] right leg lower amputation 09/2020 Hospitalization History [facility] [place] 05/04/2020 Goals Section No Information Health Concerns [...] 1 tablet Orally Once a day Oct, Next Appt Details Provider Name:Gabriella Baires, 2020-11-23 0 3:15:00 PM, [address] [place], [address], Insurance Providers Payer Name Payer Address Payer Phone Insured Name Patient Relati onship to Insured Coverage Start Date Coverage End Date MEDICARE Part A and B [address] [facility] [address] LOC G[place] self 1995 [facility] [address] [address] [facility] [address] LOC GUTIERREZ [id number]
--- OUTSIDE RECORDS SUMMARY | 2020-12-05 17:30 | CCD ---
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 Active 712849857 Problem Type 2 diabetes mellitus wit h diabetic nephropathy, 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 Active 67325796 Problem Nephrolithiasis N20.0 Active 81664100 Problem Epidermal cyst of neck L72.0 Active 033661760 Problem Non-seasonal allergic rhinitis, unspecified trigger J30.89 Active 75349208 Problem Type 2 diabetes mellitus wit h diabetic polyneuropathy, 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 Active 68182497 Problem 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 Active 827803121 Problem Anemia D64.9 Active 444463422 Problem Lumbosacral spondylosis with radiculopathy M47.27 Active 202896638 Problem Pruritus L29.9 Active 433378127 Problem Seborrheic keratoses L82.1 Active 308636214 Problem Typical atrial flutter I48.3 Active 173761919 Problem Peripheral vascular disease I73.9 Active 4000 89349 Problem Paronychia of fifth toe of left foot L03.032 Active 27252506492489530 Problem Macrocytosis D75.89 Active 274699688 Problem Type 2 diabetes mellitus with foot ulcer E11.621 Active 752487859 Problem 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 Act chase 555988355 Problem Atherosclerosis of [place] teries of right leg with ulceration of other part of lower leg I70.238 Active 242266803 Problem 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 Active 577522099 Problem Chronic venous hypertension (idiopathic) with ulcer of 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 Active 584182272843313 Problem 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 Active 102134588 Problem Xerosis cutis L85.3 Active 75440406 Problem Poorly controlled diabetes mellitus E11.65 Acti ve 786030232 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 211256864 Problem Dermatofibroma D23.9 Active 381521376 Problem Atherosclerosis of [place] teries of right leg with ulceration of other part of foot I70.235 Active 212953587 Problem Cellulitis of right lower extremity L03.115 Acti ve 089565582 Problem Cellulitis, unspecified cellulitis site L03.90 Active 286593924 Problem Adjustment disorder, unspecified type F43.20 Ac tive 45221582 ALLERGIES No Known Allergies ENCOUNTERS from 1935 to 2020-11-02 Encounter Location Date Provider Diagnosis [facility] [address] [place] [address] Oct, Gabriella [place] IMMUNIZATIONS Vaccine Route Administration Date Status Influenza [...] Education Language: Question Answer Notes Languages spoken: Sami Congregation: Question Answer Notes Congregation 33 None Sexual Hx: Question Answer Notes [...] Information RESULTS No Results REASON FOR VISIT FYI MEDICAL (GENERAL) HISTORY Type Description Date Medical [...] right leg lower amputation 09/2020 [facility] [place] [facility] Goals Section No Information Health Concerns [...] Provider Name:Gabriella Baires, 2020-11-09 0 2:15:00 PM, [address] [place], [address], Insurance Providers Payer Name Payer Address Payer Phone Insured Name Patient Relati onship to Insured Coverage Start Date Coverage End Date MEDICARE Part A and B [address] [facility] [address] LOC GUTIERREZ self 1995 [facility] [address] [address] [facility] [address] LOC GUTIERREZ [id number]
--- OUTSIDE RECORDS SUMMARY | 2020-12-05 17:30 | CCD ---
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 Active 13720643 Problem Epidermal cyst of neck L72.0 Active 963953885 Problem Non-seasonal allergic rhinitis, unspecified trigger J30.89 Active 56601754 Problem Xerosis cutis L85.3 Active 20778383 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 839176015 Problem Seborrheic keratoses L82.1 Active 640447110 Problem Dermatofibroma D23.9 Active 585879746 Problem Atherosclerosis of [place] ter[place] of right leg with ulceration of other part of foot I70.235 Active 510883206 Problem 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 Active 555698988 Problem Chronic venous hypertension (idiopathic) with ulcer of 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 Active 610879243705412 Problem Coronary artery disease invo lving coronary bypass graft of [place] heart without angina pectoris I25.810 Active 671823248 Problem Nephrolithiasis N20.0 Active 19771880 Problem Essential hypertension I10 Active 78619882 Problem Paronychia of fifth toe of left foot L03.032 Active 60081683391717766 Problem Macrocytosis D75.89 Active 161407480 Problem Type 2 diabetes mellitus with foot ulcer E11.621 Active 681372057 Problem 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 Act chase 107859273 Problem Atherosclerosis of [place] of right leg with ulceration of other part of lower leg I70.238 Active 246801655 Problem 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 Active 027870264 Problem 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 Active 916604446 Problem Anemia D64.9 Active 726290782 Problem Type 2 diabetes mellitus wit h diabetic polyneuropathy, 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 Active 05533299 Problem Lumbosacral spondylosis with radiculopathy M47.27 Active 570279401 Problem Cellulitis of right lower extremity L03.115 Acti ve 864746855 Problem Cellulitis, unspecified cellulitis site L03.90 Active 827538821 Problem Adjustment disorder, unspecified type F43.20 Ac tive 04831159 Problem Phantom limb pain G54.6 Active 9540974170183 Problem Peripheral vascular disease I73.9 Active 4000 62295 Problem Benign prostatic hyperplasia without lower urina ry tract symptoms N40.0 Active 507963789 Problem Pruritus L29.9 Active 723787552 Problem Typical atrial flutter I48.3 Active 752492991 Problem Poorly controlled diabetes mellitus E11.65 Acti ve 230588193 Problem 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 Active 743025676 Problem Longstanding persistent atrial fibrillation I48.11 Active 611551258 Problem Gastritis, presence of bleed ing unspecified, unspecified chronicity, unspecified gastritis type K29.70 Active 764290406 ALLERGIES No Known Allergies ENCOUNTERS from 1935 to 2020-11-11 Encounter Location Date Provider Diagnosis [facility] [address] [place] [address] Sep, Korey Smith Above knee amputation of right lower ext remity S78.111A ; Poorly controlled diabetes mellitus E11.65 ; Typical atrial flutter I48.3 and Fecal occult blood test positive R19.5 IMMUNIZATIONS Vaccine Route Administration Date Status Influenza [...] Education Language: Question Answer Notes Languages spoken: Khmer Congregational: Question Answer Notes Congregational 33 None Sexual Hx: Question Answer Notes [...] REASON FOR REFERRAL No Information VITAL SIGNS Weight 179 lbs Sep, Weight-kg per pt kg Sep, Height 70.25 in Sep, BMI 25.50 kg/m2 Sep, Heart Rate 129 /min Sep, Respiratory Rate 20 /min Sep, Temperature 98.1 degrees Fahrenheit Sep, Oximetry 99% Sep, Blood pressure systolic 124 mm Hg Sep, Blood pressure diastolic 77 mm Hg Sep, MEDICATIONS Medication SIG (Take, Route, Frequency, Duration) [...] Information RESULTS No Results REASON FOR VISIT hosp f/u, pain MEDICAL (GENERAL) HISTORY Type Description Date Medical [...] right leg lower amputation 09/2020 Hospitalization History [facility] [place] 05/04/2020 Goals Section No Information Health Concerns No Information MEDICAL EQUIPMENT No Information MENTAL STATUS No Information FUNCTIONAL STATUS No Information ASSESSMENTS Encounter Date Diagnosis Assessment Notes Treatment Notes Treatm ent Clinical Notes Sep, Above knee amputation of right lower ext remity (ICD-10 - S78.111A) Reviewed [facility] admission. Patient was admitted 09/23 and discharged 09/28. Was in short term rehab following discharge until 10/10. Patient had above knee amputation due to history of nonhealing right foot. Patient not clear if having severe pain in leg following surgery. Notes has happened a few times, cannot tell me when. Discussed that can restart Gabapentin to see if helps with pain. Needs refill sending in. Not restarting Tramadol at this time. Follow up to monitor pain control. Sep, Poorly controlled diabetes mellitus (ICD-10 - E1 1.65) Patient was taken off medication in hospital due to hypoglycemia. Likely occured due to decreased oral intake and was on glipizide. Patients fasting glucose over 300 today. Recommend restart metformin. Patient notes affects taste buds. Discussed with patient poorly controlled DM can lead to other complications including another amputation. Patient noted he understood. Sep, Typical atrial flutter (ICD-10 - I48.3) Patient has history of atrial flutter. Heart rate decreased on repeat. Patient maintained anticoagulation and rate control medication. Sep, Fecal occult blood test positive (ICD-10 - R19.5 ) Noted during hospital stay. Plan is to follow up with Dr. De La Cruz's office. Sep, Other Follow up with vascular surgeon next week. PLAN OF TREATMENT Medication Medication Name Sig [...] 1 tablet Orally Once a day Oct, Treatment Notes Assessment Notes Clinical Notes Above knee amputation of right lower extremity Reviewed [facility] admission. Patient was admitted 09/23 and discharged 09/28. Was in short term rehab following discharge until 10/10. Patient had above knee amputation due to history of nonhealing right foot.Patient not clear if having severe pain in leg following surgery. Notes has happened a few times, cannot tell me when. Discussed that can restart Gabapentin to see if helps with pain. Needs refill sending in. Not restarting Tramadol at this time. Follow up to monitor pain control. Poorly controlled diabetes mellitus [place] ent was taken off medication in hospital due to hypoglycemia. Likely occured due to decreased oral intake and was on glipizide.Patients fasting glucose over 300 today. Recommend restart metformin. Patient notes affects taste buds. Discussed with patient poorly controlled DM can lead to other complications including another amputation. Patient noted he understood. Typical atrial flutter Patient has histo ry of atrial flutter. Heart rate decreased on repeat. Patient maintained anticoagulation and rate control medication. Fecal occult blood test positive Noted d ur hospital stay. Plan is to follow up with Dr. De La Cruz's office. Next Appt Details 2-4 weeks with PCP Reason:DM, pain Provider Name:Gabriella Baires, 2020-11-23 0 3:15:00 PM, [address] [place], [address], Follow Up:2-4 weeks with PCPDM, pain Insurance Providers Payer Name Payer Address Payer Phone Insured Name Patient Relati onship to Insured Coverage Start Date Coverage End Date [facility] [address] [address] [facility] [phone] LOC GUTIERREZ [id number] MEDICARE Part A and B [address] [place] [address] LOC GUTIERREZ self 1995
--- OUTSIDE RECORDS SUMMARY | 2020-12-05 17:30 | CCD ---
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 Active confirmed 7170702 6 Problem Epidermal cyst of neck L72.0 Active confirmed 586742658 Problem Non-seasonal allergic rhinitis, unspecified trigger J30.89 Active confirmed 03240090 Problem Xerosis cutis L85.3 Active confirmed 698364 00 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 confirmed 236694841 Problem Seborrheic keratoses L82.1 Active confirmed 351099139 Problem Dermatofibroma D23.9 Active confirmed 02570 6000 Problem Atherosclerosis of [place] of right leg with ulceration of other part of foot I70.235 Active confirmed 507714755 Problem 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 Active confirmed 307152611 Problem Chronic venous hypertension (idiopathic) with ulcer of 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 Active confirmed 558826335914813 Problem Coronary artery disease invo lving coronary bypass graft of upper [place] heart without angina pectoris I25.810 Active confirmed 901871 002 Problem Nephrolithiasis N20.0 Active confirmed 9557 0007 Problem Essential hypertension I10 Active confirmed 24838792 Problem Paronychia of fifth toe of left foot L03.032 Act chase confirmed 30887068442651517 Problem Macrocytosis D75.89 Active confirmed 8663913 00 Problem Type 2 diabetes mellitus with foot ulcer E11.621 Active confirmed 916141527 Problem 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 Act chase confirmed 308474456 Problem Atherosclerosis of [place] of right leg with ulceration of other part of lower leg I70.238 Active confirmed 193368235 Problem 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 Active confirmed 899171712 Problem 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 Active confirmed 636185009 Problem Anemia D64.9 Active confirmed 361391521 Problem Type 2 diabetes mellitus wit h diabetic polyneuropathy, 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 Active confirmed 7283899 6 Problem Lumbosacral spondylosis with radiculopathy M47.27 Active confirmed 497966507 Problem Cellulitis of right lower extremity L03.115 Acti ve confirmed 054221115 Problem Cellulitis, unspecified cellulitis site L03.90 Active confirmed 593818977 Problem Adjustment disorder, unspecified type F43.20 Ac tive confirmed 98312215 Problem Phantom limb pain G54.6 Active confirmed 57 93458368576 Problem Peripheral vascular disease I73.9 Active confirmed 989809838 Problem Benign prostatic hyperplasia without lower urina ry tract symptoms N40.0 Active confirmed 196578708 Problem Pruritus L29.9 Active confirmed 262443949 Problem Typical atrial flutter I48.3 Active confirmed 703192210 Problem Poorly controlled diabetes mellitus E11.65 Acti ve confirmed 506109572 Problem 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 Active confirmed 949776965 Problem Longstanding persistent atrial fibrillation I48.11 Active confirmed 873176526 Problem Gastritis, presence of bleed ing unspecified, unspecified chronicity, unspecified gastritis type K29.70 Active confirmed 196 939169 ALLERGIES No Known Allergies ENCOUNTERS from 1935 to 2020-11-25 Encounter Location Date Provider Diagnosis [facility] [address] [place] [address] Nov, 2020 Gabriella Baires IMMUNIZATIONS Vaccine Route Administration Date [...] Language: Question Answer Notes Languages spoken: Sami Presybeterian: Question Answer Notes Presybeterian 33 None Sexual Hx: Question Answer Notes [...] Information RESULTS No Results REASON FOR VISIT no show MEDICAL (GENERAL) HISTORY Type Description Date Medical [...] right leg lower amputation 09/2020 Hospitalization History [facility] [place] 05/04/2020 Goals Section No Information Health Concerns [...] Part A and B [address] [facility] [address] LOC GUTIERREZ self 1995 [facility] [address] [address] [facility] [address] LOC GUTIERREZ [id number]
--- OUTSIDE RECORDS SUMMARY | 2020-12-05 17:30 | CCD ---
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 Active 70916987 Problem Epidermal cyst of neck L72.0 Active 429147989 Problem Non-seasonal allergic rhinitis, unspecified trigger J30.89 Active 00516060 Problem Xerosis cutis L85.3 Active 95413428 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 826759544 Problem Seborrheic keratoses L82.1 Active 475997063 Problem Dermatofibroma D23.9 Active 726535726 Problem Atherosclerosis of [place] ter[place] of right leg with ulceration of other part of foot I70.235 Active 840129937 Problem 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 Active 588721852 Problem Chronic venous hypertension (idiopathic) with ulcer of 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 Active 619207374794740 Problem Coronary artery disease invo lving coronary bypass graft of [place] heart without angina pectoris I25.810 Active 360824924 Problem Nephrolithiasis N20.0 Active 82729718 Problem Essential hypertension I10 Active 34127893 Problem Paronychia of fifth toe of left foot L03.032 Active 97459124691153766 Problem Macrocytosis D75.89 Active 948267075 Problem Type 2 diabetes mellitus with foot ulcer E11.621 Active 957994508 Problem 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 Act chase 377709105 Problem Atherosclerosis of [place] of right leg with ulceration of other part of lower leg I70.238 Active 206388269 Problem 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 Active 780975773 Problem 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 Active 410446859 Problem Anemia D64.9 Active 184867456 Problem Type 2 diabetes mellitus wit h diabetic polyneuropathy, 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 Active 09006745 Problem Lumbosacral spondylosis with radiculopathy M47.27 Active 604314588 Problem Cellulitis of right lower extremity L03.115 Acti ve 083288757 Problem Cellulitis, unspecified cellulitis site L03.90 Active 701052502 Problem Adjustment disorder, unspecified type F43.20 Ac tive 59005809 Problem Phantom limb pain G54.6 Active 0695070703971 Problem Peripheral vascular disease I73.9 Active 4000 43641 Problem Benign prostatic hyperplasia without lower urina ry tract symptoms N40.0 Active 375257853 Problem Pruritus L29.9 Active 158448313 Problem Typical atrial flutter I48.3 Active 505453676 Problem Poorly controlled diabetes mellitus E11.65 Acti ve 045643790 Problem 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 Active 498426179 Problem Longstanding persistent atrial fibrillation I48.11 Active 191696366 Problem Gastritis, presence of bleed ing unspecified, unspecified chronicity, unspecified gastritis type K29.70 Active 347788873 ALLERGIES No Known Allergies ENCOUNTERS from 1935 to 2020-11-18 Encounter Location Date Provider Diagnosis [facility] [address] [place] [address] Oct Gabriella Baires IMMUNIZATIONS Vaccine Route Administration Date [...] Education Language: Question Answer Notes Languages spoken: Guatemalan Gnosticist: Question Answer Notes Gnosticist 33 None Sexual Hx: Question Answer Notes [...] Information RESULTS No Results REASON FOR VISIT med issue/sugar reading MEDICAL (GENERAL) HISTORY Type Description Date Medical [...] lower amputation 09/2020 Hospitalization History [facility] 05/04/2020 Goals Section No Information Health Concerns [...] Provider Name:Gabriella Baires, 2020-11-23 0 3:15:00 PM, [address] [place], [address], Insurance Providers Payer Name Payer Address Payer Phone Insured Name Patient Relati onship to Insured Coverage Start Date Coverage End Date [facility] [address] [address] [facility] [address] LOC GUTIERREZ [id number] MEDICARE Part A and B [address] [place] [address] LOC GUTIERREZ self 1995
--- OUTSIDE RECORDS SUMMARY | 2020-12-05 17:30 | CCD ---
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 Active 69168912 Problem Epidermal cyst of neck L72.0 Active 603145125 Problem Non-seasonal allergic rhinitis, unspecified trigger J30.89 Active 69914391 Problem Xerosis cutis L85.3 Active 37200124 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 169534689 Problem Seborrheic keratoses L82.1 Active 421330415 Problem Dermatofibroma D23.9 Active 778236821 Problem Atherosclerosis of [place] ter[place] of right leg with ulceration of other part of foot I70.235 Active 836293632 Problem 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 Active 495926123 Problem Chronic venous hypertension (idiopathic) with ulcer of 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 Active 938882903266085 Problem Coronary artery disease invo lving coronary bypass graft of lower [place] heart without angina pectoris I25.810 Active 263546151 Problem Nephrolithiasis N20.0 Active 83532111 Problem Essential hypertension I10 Active 00947182 Problem Paronychia of fifth toe of left foot L03.032 Active 02879157490884426 Problem Macrocytosis D75.89 Active 606278711 Problem Type 2 diabetes mellitus with foot ulcer E11.621 Active 226349707 Problem 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 Act chase 760132593 Problem Atherosclerosis of [place] of right leg with ulceration of other part of lower leg I70.238 Active 465048135 Problem 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 Active 386844914 Problem 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 Active 879666425 Problem Anemia D64.9 Active 771851939 Problem Type 2 diabetes mellitus wit h diabetic polyneuropathy, 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 Active 37686141 Problem Lumbosacral spondylosis with radiculopathy M47.27 Active 381073854 Problem Cellulitis of right lower extremity L03.115 Acti ve 868132654 Problem Cellulitis, unspecified cellulitis site L03.90 Active 133528529 Problem Adjustment disorder, unspecified type F43.20 Ac tive 09447964 Problem Phantom limb pain G54.6 Active 3215471367392 Problem Peripheral vascular disease I73.9 Active 4000 16134 Problem Benign prostatic hyperplasia without lower urina ry tract symptoms N40.0 Active 576288130 Problem Pruritus L29.9 Active 179106572 Problem Typical atrial flutter I48.3 Active 161313867 Problem Poorly controlled diabetes mellitus E11.65 Acti ve 614243619 Problem 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 Active 036886808 Problem Longstanding persistent atrial fibrillation I48.11 Active 842912605 Problem Gastritis, presence of bleed ing unspecified, unspecified chronicity, unspecified gastritis type K29.70 Active 875052309 ALLERGIES No Known Allergies ENCOUNTERS from 1935 to 2020-11-15 Encounter Location Date Provider Diagnosis [facility] [address] [place] [address] Oct, Gabriella Baires Type 2 diabetes mellitus with diabetic n ephropathy, 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 ; Longstanding persistent atrial fibrillation I48.11 ; Phantom limb pain G54.6 ; Anemia, unspecified type D64.9 ; Typical atrial flutter I48.3 ; Gastritis, presence of bleeding unspecified, unspecified chronicity, unspecified gastritis type K29.70 ; Peripheral vascular disease I73.9 ; 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.111A and Benign prostatic hyperplasia without lower urinary tract symptoms N40.0 IMMUNIZATIONS Vaccine Route Administration Date Status Influenza [...] Education Language: Question Answer Notes Languages spoken: Grenadian Jainism: Question Answer Notes Jainism 33 None Sexual Hx: Question Answer Notes [...] No Information VITAL SIGNS Weight 179 lbs Oct, Height 70.25 in Oct, BMI 25.50 kg/m2 Oct, Heart Rate 113 /min Oct, Respiratory Rate 20 /min Oct, Temperature 99.0 degrees Fahrenheit Oct, Oximetry 99 Oct, Blood pressure systolic 107 mm Hg Oct, Blood pressure diastolic 64 mm Hg Oct, MEDICATIONS Medication SIG (Take, Route, Frequency, Duration) [...] MG 1 tablet Orally Once a day 14 Oct, 2020 Active Eliquis 5 MG as directed Orally [...] Information RESULTS No Results REASON FOR VISIT 2-4 WEEL FOLLOW UP MEDICAL (GENERAL) HISTORY Type Description Date Medical [...] right leg lower amputation 09/2020 Hospitalization History [facility] [place] 05/04/2020 Goals Section No Information Health Concerns No Information MEDICAL EQUIPMENT No Information MENTAL STATUS No Information FUNCTIONAL STATUS No Information ASSESSMENTS Encounter Date Diagnosis Assessment Notes Treatment Notes Treatm ent Clinical Notes Oct, Type 2 diabetes mellitus wit h diabetic nephropathy, without long- term current use of insulin (ICD-10 - E11.21) Sugars show inadequate control, he is resistant to restarting his metformin, start him back on a half a tablet of glipizide, he'll take his fingersticks daily and follow-up week, I suspect we'll have to go up to at least 5 mg. He was able to teach back to me that if he does not eat he should not take this medication. Oct, Longstanding persistent atrial fibrillation (ICD -10 - I48.11) Oct, Phantom limb pain (ICD-10 - G54.6) He continues to have phantom limb pain, although it appears to be improving, he's been out of gabapentin for about a week, he says it didn't make a difference and would like to restart it, Oct, Anemia, unspecified type (ICD-10 - D64.9) Has been taking iron twice a day, he developed a significant anemia after his surgery likely secondary to stress gastritis, he's had no melanotic or loose stools, request that we go down on his iron to see feels its constipating him, we'll go ahead and give it to him every other day, will follow-up with a CBC to ensure stability. Oct, Typical atrial flutter (ICD-10 - I48.3) Has been on metoprolol 25 mg 4 times a day, is having difficulty remembering the mid morning doses, blood pressures have been soft but in an acceptable range, we'll go ahead and put him on 50 mg twice a day, he will take his blood pressure and his pulse daily living though if his systolic drops below 100, or his pulse increases over 120. Oct, Gastritis, presence of bleed ing unspecified, unspecified chronicity, unspecified gastritis type (ICD-10 - K29.70) He does have a history of a GI bleed on anticoagulation, he has been relatively stable since discharge, no melanotic stools, no hematuria, no complaints of abdominal pain, we'll decrease his sulfate to an evening dose as well as continue him on the pantoprazole, disposition pending CBC, he is aware that he needs to make a follow-up appointment with the surgeon Oct, Peripheral vascular disease (ICD-10 - I73.9) He again really doesn't want to be on the atorvastatin, and would prefer to use homeopathic medications, he does agree to continue it at least until her next visit. Oct, Above knee amputation of right lower ext remity (ICD-10 - S78.111A) Oct, Benign prostatic hyperplasia without lower urinary tract symptoms (ICD-10 - N40.0) Discussed this medication can drop his blood pressure, he agrees to take it at night and monitor his blood pressure. PLAN OF TREATMENT Medication Medication Name Sig [...] Oct, Treatment Notes Assessment Notes Clinical Notes Type 2 diabetes mellitus with diabetic n ephropathy, without long-term current use of insulin Sugars show inadequate contr ol, he is resistant to restarting his metformin, start him back on a half a tablet of glipizide, he'll take his fingersticks daily and follow-up week, I suspect we'll have to go up to at least 5 mg. He was able to teach back to me that if he does not eat he should not take this medication. Phantom limb pain He continues to have phantom limb pain, although it appears to be improving, he's been out of gabapentin for about a week, he says it didn't make a difference and would like to restart it, Anemia, unspecified type Has been taking iron twice a day, he developed a significant anemia after his surgery likely secondary to stress gastritis, he's had no melanotic or loose stools, request that we go down on his iron to see feels its constipating him, we'll go ahead and give it to him every other day, will follow-up with a CBC to ensure stability. Typical atrial flutter Has been on metop rolol 25 mg 4 times a day, is having difficulty remembering the mid morning doses, blood pressures have been soft but in an acceptable range, we'll go ahead and put him on 50 mg twice a day, he will take his blood pressure and his pulse daily living though if his systolic drops below 100, or his pulse increases over 120. Gastritis, presence of bleeding unspecif ied, unspecified chronicity, unspecified gastritis type He does have a history of a GI bleed on anticoagulation, he has been relatively stable since discharge, no melanotic stools, no hematuria, no complaints of abdominal pain, we'll decrease his sulfate to an evening dose as well as continue him on the pantoprazole, disposition pending CBC, he is aware that he needs to make a follow-up appointment with the surgeon Peripheral vascular disease He again ovidiomichael gasca doesn't want to be on the atorvastatin, and would prefer to use homeopathic medications, he does agree to continue it at least until her next visit. Benign prostatic hyperplasia without lower urinary tract sym ptoms Discussed this medication can drop his blood pressure, he agrees to take it at night and monitor his blood pressure. Treatment Notes Test Name Order Date CBC with Differential 2020-11-15 Next Appt Details 2 Weeks Reason:phantom limb pain Provider Name:Gabriella Baires, 2020-11-23 0 3:15:00 PM, [address] [place], [address], Follow Up:2 Weeksphantom limb pain Insurance Providers Payer Name Payer Address Payer Phone Insured Name Patient Relati onship to Insured Coverage Start Date Coverage End Date MEDICARE Part A and B [address] [facility] [address] LOC G[place]IERREZ self 1995 [facility] [address] [address] [facility] [address] [phone] LOC GUTIERREZ [id number]
--- OUTSIDE RECORDS SUMMARY | 2020-12-05 17:30 | CCD ---
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 Active 42219189 Problem Epidermal cyst of neck L72.0 Active 794354109 Problem Non-seasonal allergic rhinitis, unspecified trigger J30.89 Active 57100242 Problem Xerosis cutis L85.3 Active 60952310 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 502585508 Problem Seborrheic keratoses L82.1 Active 854153094 Problem Dermatofibroma D23.9 Active 662819724 Problem Atherosclerosis of [place] ter[place] of right leg with ulceration of other part of foot I70.235 Active 478289952 Problem 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 Active 395793946 Problem Chronic venous hypertension (idiopathic) with ulcer of 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 Active 025706923667595 Problem Coronary artery disease invo lving coronary bypass graft of [place] heart without angina pectoris I25.810 Active 444609661 Problem Nephrolithiasis N20.0 Active 62121342 Problem Essential hypertension I10 Active 98588835 Problem Paronychia of fifth toe of left foot L03.032 Active 98664381789174350 Problem Macrocytosis D75.89 Active 028340688 Problem Type 2 diabetes mellitus with foot ulcer E11.621 Active 950487835 Problem 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 Act chase 697969031 Problem Atherosclerosis of [place] ter[place] of right leg with ulceration of other part of lower leg I70.238 Active 449628967 Problem 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 Active 416028498 Problem 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 Active 801959472 Problem Anemia D64.9 Active 533357431 Problem Type 2 diabetes mellitus wit h diabetic polyneuropathy, 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 Active 33926931 Problem Lumbosacral spondylosis with radiculopathy M47.27 Active 264788146 Problem Cellulitis of right lower extremity L03.115 Acti ve 839366516 Problem Cellulitis, unspecified cellulitis site L03.90 Active 067592470 Problem Adjustment disorder, unspecified type F43.20 Ac tive 79471158 Problem Phantom limb pain G54.6 Active 0283087117282 Problem Peripheral vascular disease I73.9 Active 4000 39072 Problem Benign prostatic hyperplasia without lower urina ry tract symptoms N40.0 Active 223505152 Problem Pruritus L29.9 Active 872121427 Problem Typical atrial flutter I48.3 Active 623438886 Problem Poorly controlled diabetes mellitus E11.65 Acti ve 197124413 Problem 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 Active 049420132 Problem Longstanding persistent atrial fibrillation I48.11 Active 046605830 Problem Gastritis, presence of bleed ing unspecified, unspecified chronicity, unspecified gastritis type K29.70 Active 178051358 ALLERGIES No Known Allergies ENCOUNTERS from 1935 to 2020-11-09 Encounter Location Date Provider Diagnosis [facility] [address] [place] [address] Oct, Gabriella Baires IMMUNIZATIONS Vaccine Route [...] Education Language: Question Answer Notes Languages spoken: Guamanian Jainism: Question Answer Notes Jainism 33 None [...] Information RESULTS No Results REASON FOR VISIT Call BAck MEDICAL (GENERAL) HISTORY Type Description Date Medical [...] lower amputation 09/2020 Hospitalization History [facility] 05/04/2020 Goals Section No Information Health Concerns [...] Provider Name:Gabriella Baires, 2020-11-23 0 3:15:00 PM, [address] [place], [address], Insurance Providers Payer Name Payer Address Payer Phone Insured Name Patient Relati onship to Insured Coverage Start Date Coverage End Date MEDICARE Part A and B [address] [facility] [phone] LOC GUTIERREZ self 1995 [facility] [address] [address] [facility] [address] LOC GUTIERREZ [id number]
--- OUTSIDE RECORDS SUMMARY | 2020-12-05 17:30 | CCD | Continuity of Care Document ---
Author Author Chapo TURNER DPM Organization Unknown Address [address] [place] [address], [facility] [address] [place] [address] Phone [phone] Care Team Providers Care Restaurant Recruiter Name Role Phone Gabriella Baires MD AUTM [phone] DR. Singh AUTM [phone] Problems Active Problems Provider Date Onychomycosis Renan Turner DPM Onset: 10/28/2018 Type 2 diabetes mellitus with diabetic polyneuropathy Renan Turner DPM Onset: 10/28/2018 Corns and callosities Renan Turner DPM Onset: 10/28/2018 Amputated right lower limb above knee Renan Turner DPM O nset: 11/14/2020 Social History Type Date Description Comments Sex [...] Information Available Procedures Date Code Description Status 11/06/2020 64549 Debridement 5 Nails Electric Com pleted 08/14/2020 99365 Debridement 6-10 Nails Electric Completed 08/14/2020 52315 Paring/Cutting Benign Single Les n Completed 06/05/2020 97723 Debridement 6-10 Nails Electric Completed 06/05/2020 62440 Paring/Cut Benign Lesion 2 To 4 Completed Medical Devices Description No Information Available Encounters Description No Information Available Assessments Date Code Description Provider 11/06/2020 B35.1 Tinea unguium Renan Turner, UZAIR 11/06/2020 E11.42 Type 2 diabetes mellitus with di abetic polyneuropathy Renan Turner DPM 08/14/2020 B35.1 Tinea unguium Renan Turner, UZAIR 08/14/2020 E11.42 Type 2 diabetes mellitus with di abetic polyneuropathy Renan Turner, UZAIR 08/14/2020 L84 Corns and callosities Renan Turner, UZAIR 06/05/2020 B35.1 Tinea unguium Renan Turner, UZAIR 06/05/2020 E11.42 Type 2 diabetes mellitus with di abetic polyneuropathy Renan Turner, UZAIR 06/05/2020 L84 Corns and callosities Renan Turner DPM Plan of Treatment Future Appointment(s):* 01/15/2021 2:00 pm - Renan Turner DPM at [facility] Functional Status Description No Information Available Mental Status Description No Information Available Referrals Description No Information Available
--- OUTSIDE RECORDS SUMMARY | 2020-12-05 17:31 | CCD ---
Author Author 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 Active 748000353 Problem Type 2 diabetes mellitus wit h diabetic nephropathy, 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 Active 35969869 Problem Nephrolithiasis N20.0 Active 76931262 Problem Epidermal cyst of neck L72.0 Active 655972893 Problem Non-seasonal allergic rhinitis, unspecified trigger J30.89 Active 63544591 Problem Type 2 diabetes mellitus wit h diabetic polyneuropathy, 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 Active 93247250 Problem 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 Active 205207615 Problem Anemia D64.9 Active 904422614 Problem Lumbosacral spondylosis with radiculopathy M47.27 Active 591829197 Problem Pruritus L29.9 Active 794221793 Problem Seborrheic keratoses L82.1 Active 201592350 Problem Typical atrial flutter I48.3 Active 326667807 Problem Peripheral vascular disease I73.9 Active 4000 87698 Problem Paronychia of fifth toe of left foot L03.032 Active 11574269828527158 Problem Macrocytosis D75.89 Active 301034128 Problem Type 2 diabetes mellitus with foot ulcer E11.621 Active 204161565 Problem 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 Act chase 857888407 Problem Atherosclerosis of [place] ter[place] of right leg with ulceration of other part of lower leg I70.238 Active 150707448 Problem 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 Active 706435505 Problem Chronic venous hypertension (idiopathic) with ulcer of 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 Active 578776778826803 Problem 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 Active 351453044 Problem Xerosis cutis L85.3 Active 72237665 Problem Poorly controlled diabetes mellitus E11.65 Acti ve 713635951 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 129262253 Problem Dermatofibroma D23.9 Active 842671725 Problem Atherosclerosis of [place] ter[place] of right leg with ulceration of other part of foot I70.235 Active 754662471 Problem Cellulitis of right lower extremity L03.115 Acti ve 053950961 Problem Cellulitis, unspecified cellulitis site L03.90 Active 509547044 Problem Adjustment disorder, unspecified type F43.20 Ac tive 17282991 ALLERGIES No Known Allergies ENCOUNTERS from 1935 to 2020-10-19 Encounter Location Date Provider Diagnosis [facility] [address] [place] [address], Korey Smith IMMUNIZATIONS Vaccine Route Administration Date Status Influenza [...] Education Language: Question Answer Notes Languages spoken: Croatian Latter-Day: Question Answer Notes Latter-Day 33 None Sexual Hx: Question Answer Notes [...] Notes Start Da te End Date Status Cinnamon 500 MG 1 tab Orally Daily A ctive Tramadol HCl 100 MG 1 tablet as needed Orally four times daily f or 14 days Sep, Not-Taking Omeprazole 40 MG 1 capsule 30 minutes before morning meal Orally Sophia y Active Gabapentin 100 MG 1 capsule Orally three times daily for 30 days Active ReliOn Blood Glucose Test - as directed [...] with food Orally Twice a day for Active Ginkgo Biloba 60 MG 1 tab Orally Daily Active GlipiZIDE 5MG 1 tablet Orally twice a day Active Tradjenta 5 MG 1 tablet Orally Once a day Not-Taking Lisinopril 10 MG 1 tablet Orally before bedtime February, Active Fish Oil 1 capsule Orally Twice a day Active Vitamin B Complex - 1 tab Orally Daily Active PROCEDURES No Information RESULTS No Results REASON FOR VISIT Phantom pain MEDICAL (GENERAL) HISTORY Type Description Date [...] right leg lower amputation 09/2020 Hospitalization History [facility] 05/04/2020 Goals Section No Information Health Concerns No Information MEDICAL EQUIPMENT No Information MENTAL STATUS No Information FUNCTIONAL STATUS No Information ASSESSMENTS No Information PLAN OF TREATMENT Medication Medication Name Sig Start Date Stop Date Gabapentin 100 MG 1 capsule Orally three times daily for 30 days Next Appt Details Provider Name:Korey Smith, 2020-10-23 03:15:00 PM, [address] [place], [address], Provider Name:Gabriella Baires, 2020-11-09 0 2:15:00 PM, [address] [place], [address], Insurance Providers Payer Name Payer Address Payer Phone Insured Name Patient Relati onship to Insured Coverage Start Date Coverage End Date MEDICARE Part A and B [address] [facility] [address] LOC [place] self 1995 [facility] [address] [address] [facility] [address] LOC [place] [id number]
--- OUTSIDE RECORDS SUMMARY | 2020-12-05 17:31 | CCD ---
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 I25.810 Active 665726348 Problem Anemia D64.9 Active 392031866 Problem Lumbosacral spondylosis with radiculopathy M47.27 Active 540157206 Problem Essential hypertension I10 Active 63339864 Problem 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 Active 392208796 Problem Type 2 diabetes mellitus wit h diabetic nephropathy, 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 Active 74311645 Problem Nephrolithiasis N20.0 Active 00029840 Problem Type 2 diabetes mellitus with foot ulcer E11.621 Active 614020079 Problem 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 Act chase 023648954 Problem Dermatofibroma D23.9 Active 483224840 Problem Xerosis cutis L85.3 Active 16861319 Problem Pruritus L29.9 Active 799472732 Problem Seborrheic keratoses L82.1 Active 254287737 Problem Typical atrial flutter I48.3 Active 232949868 Problem Peripheral vascular disease I73.9 Active 4000 73524 Problem Paronychia of fifth toe of left foot L03.032 Active 92839701777598963 Problem Macrocytosis D75.89 Active 474577506 Problem 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 Active 025879936 Problem Atherosclerosis of [place] ar ter[place] of right leg with ulceration of other part of lower leg I70.238 Active 370901742 Problem Type 2 diabetes mellitus wit h diabetic polyneuropathy, 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 Active 84247923 Problem Cellulitis, unspecified cellulitis site L03.90 Active 542629530 Problem Epidermal cyst of neck L72.0 Active 171455998 Problem Adjustment disorder, unspecified type F43.20 Ac tive 46071721 Problem Non-seasonal allergic rhinitis, unspecified trigger J30.89 Active 52541694 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 839897517 Problem 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 Active 732799507 Problem Chronic venous hypertension (idiopathic) with ulcer of 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 Active 757939287149634 Problem Atherosclerosis of [place] ar ter[place] of right leg with ulceration of other part of foot I70.235 Active 321291071 Problem Cellulitis of right lower extremity L03.115 Acti ve 061406207 ALLERGIES No Known Allergies ENCOUNTERS from 1935 to 2020-09-29 Encounter Location Date Provider Diagnosis [address] [address] Sep, Gen Hairston IMMUNIZATIONS Vaccine Route Administration Date Status Influenza [...] Education Language: Question Answer Notes Languages spoken: Tanzanian Yazidism: Question Answer Notes Yazidism 33 None Sexual Hx: Question Answer Notes [...] Notes Start Da te End Date Status Ginkgo Biloba 60 MG 1 tab Orally Daily Active Metformin HCl 500 MG 2 tablet with a meal Orally bid Active Metoprolol Tartrate 50 MG 1/2 tablet with food Orally Twice a day for 90 Active Tramadol HCl 100 MG 1 tablet as needed Orally four times daily f or 14 days Sep, Active ReliOn Blood Glucose Test - as directed In Vitro bid for 30 day( s) Dec, Active DOK 100 MG 2 capsule Orally Once a day Active Mag-Oxide 200 MG 2 tab Orally Daily Active Doxycycline Hyclate 100 MG 1 tablet Orally Twice a day for 14 day(s) Active Eliquis 5 MG as directed Orally bid Active Cinnamon 500 MG 1 tab Orally Daily A ctive Vitamin B Complex - 1 tab Orally Daily Active Tradjenta 5 MG 1 tablet Orally Once a day Active GlipiZIDE 5MG 1 tablet Orally twice a day Active Omeprazole 40 MG 1 capsule 30 minutes before morning meal Orally Sophia y Active Fish Oil 1 capsule Orally Twice a day Active Tamsulosin HCl 0.4 MG 1 capsule Orally Once a day for 30 day(s) Active Gabapentin 100 MG 1 capsule Orally three times daily Active Lisinopril 10 MG 1 tablet Orally before bedtime February, Active PROCEDURES No Information RESULTS No Results REASON FOR VISIT No Information MEDICAL (GENERAL) HISTORY Type Description Date Medical [...] ureteroscopy/laser lithotripsy 12/19/2017 Surgical History Angioplasty 04/2020 Hospitalization History [facility] [place] 05/04/2020 Goals Section No Information Health Concerns No Information MEDICAL EQUIPMENT No Information MENTAL STATUS No Information FUNCTIONAL STATUS No Information ASSESSMENTS No Information PLAN OF TREATMENT Medication Medication Name Sig Start Date Stop Date Tramadol HCl 100 MG 1 tablet as needed Orally four times bel ly for 14 days Sep, Next Appt Details Provider Name:Modesta Muhammad, 10-03 10:00:00 AM, [address] [place], [address], Provider Name:Bernabe Guadalupe, 08:15:00 AM, [address] [place], [address], Insurance Providers Payer Name Payer Address Payer Phone Insured Name Patient Relati onship to Insured Coverage Start Date Coverage End Date [facility] [address] [address] [facility] [phone] LOC [place] [id number] MEDICARE Part A and B [address] [place] [address] LOC [place]IERREZ self 1995
--- OUTSIDE RECORDS SUMMARY | 2020-12-05 17:31 | CCD ---
Author Author [facility] Organization 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 Active 641390259 Problem Type 2 diabetes mellitus wit h diabetic nephropathy, 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 Active 50722529 Problem Nephrolithiasis N20.0 Active 44983784 Problem Type 2 diabetes mellitus with foot ulcer E11.621 Active 774288305 Problem 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 Act chase 475847926 Problem Dermatofibroma D23.9 Active 727158115 Problem Xerosis cutis L85.3 Active 25239620 Problem Pruritus L29.9 Active 819572735 Problem Seborrheic keratoses L82.1 Active 042174936 Problem Typical atrial flutter I48.3 Active 162860364 Problem Peripheral vascular disease I73.9 Active 4000 04547 Problem Paronychia of fifth toe of left foot L03.032 Active 32590823379770830 Problem Macrocytosis D75.89 Active 896490126 Problem 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 Active 498541831 Problem Atherosclerosis of [place] ar teries of right leg with ulceration of other part of lower leg I70.238 Active 545809219 Problem Type 2 diabetes mellitus wit h diabetic polyneuropathy, 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 Active 83973067 Problem Cellulitis, unspecified cellulitis site L03.90 Active 403420319 Problem Epidermal cyst of neck L72.0 Active 916578572 Problem Adjustment disorder, unspecified type F43.20 Ac tive 38069727 Problem Non-seasonal allergic rhinitis, unspecified trigger J30.89 Active 63375575 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 432069796 Problem 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 Active 961134638 Problem Chronic venous hypertension (idiopathic) with ulcer of 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 Active 087770121637599 Problem Atherosclerosis of [place] ar teries of right leg with ulceration of other part of foot I70.235 Active 834364700 Problem Cellulitis of right lower extremity L03.115 Acti ve 988194319 ALLERGIES No Known Allergies ENCOUNTERS from 1935 to 2020-10-03 Encounter Location Date Provider Diagnosis [facility] [address] [place] [address] Sep Modesta Muhammad IMMUNIZATIONS Vaccine Route Administration Date Status Influenza [...] Education Language: Question Answer Notes Languages spoken: Hebrew Yazidi: Question Answer Notes Yazidi 33 None Sexual Hx: Question Answer Notes [...] Information RESULTS No Results REASON FOR VISIT [facility] APT MEDICAL (GENERAL) HISTORY Type Description Date Medical [...] 12/19/2017 Surgical History Angioplasty 04/2020 Hospitalization History [facility] [place] 05/04/2020 Goals Section No Information Health Concerns No Information MEDICAL EQUIPMENT No Information MENTAL STATUS No Information FUNCTIONAL STATUS No Information ASSESSMENTS No Information PLAN OF TREATMENT Medication Medication Name Sig Start Date Stop Date Tramadol HCl 100 MG 1 tablet as needed Orally four times bel ly for 14 days Sep, Next Appt Details Provider Name:Bernabe Guadalupe, 08:15:00 AM, [address] [place], [address], Insurance Providers Payer Name Payer Address Payer Phone Insured Name Patient Relati onship to Insured Coverage Start Date Coverage End Date MEDICARE Part A and B [address] [facility] [address] LOC [place] self 1995 [facility] [address] [address] [facility] [address] LOC [place]IER[place] [id number]
--- OUTSIDE RECORDS SUMMARY | 2020-12-05 17:31 | CCD ---
Author Author 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 I25.810 Active 711910241 Problem Anemia D64.9 Active 852396064 Problem Lumbosacral spondylosis with radiculopathy M47.27 Active 017922194 Problem Essential hypertension I10 Active 48636108 Problem 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 Active 649644291 Problem Type 2 diabetes mellitus wit h diabetic nephropathy, 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 Active 27739217 Problem Nephrolithiasis N20.0 Active 58397548 Problem Type 2 diabetes mellitus with foot ulcer E11.621 Active 033595868 Problem 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 Act [place] 013556113 Problem Dermatofibroma D23.9 Active 477236595 Problem Xerosis cutis L85.3 Active 99487049 Problem Pruritus L29.9 Active 814668968 Problem Seborrheic keratoses L82.1 Active 788242122 Problem Typical atrial flutter I48.3 Active 528639760 Problem Peripheral vascular disease I73.9 Active 4000 58150 Problem Paronychia of fifth toe of left foot L03.032 Active 82725269052066572 Problem Macrocytosis D75.89 Active 676555875 Problem 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 Active 720282865 Problem Atherosclerosis of [place] ar teries of right leg with ulceration of other part of lower leg I70.238 Active 524746957 Problem Type 2 diabetes mellitus wit h diabetic polyneuropathy, 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 Active 01653632 Problem Cellulitis, unspecified cellulitis site L03.90 Active 633996965 Problem Epidermal cyst of neck L72.0 Active 298590536 Problem Adjustment disorder, unspecified type F43.20 Ac tive 28946681 Problem Non-seasonal allergic rhinitis, unspecified trigger J30.89 Active 76062065 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 267365253 Problem 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 Active 156414708 Problem Chronic venous hypertension (idiopathic) with ulcer of 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 Active 573074767695603 Problem Atherosclerosis of [place] ar teries of right leg with ulceration of other part of foot I70.235 Active 859058654 Problem Cellulitis of right lower extremity L03.115 Acti ve 770400247 ALLERGIES No Known Allergies ENCOUNTERS from 1935 to 2020-10-05 Encounter Location Date Provider Diagnosis [facility] [address] [place] [address], Gabriella Baires IMMUNIZATIONS Vaccine Route Administration Date [...] Education Language: Question Answer Notes Languages spoken: Mongolian Yazidism: Question Answer Notes Yazidism 33 None [...] Information RESULTS No Results REASON FOR VISIT update MEDICAL (GENERAL) HISTORY Type Description Date Medical [...] 12/19/2017 Surgical History Angioplasty 04/2020 Hospitalization History [facility] [place] 05/04/2020 Goals Section No Information Health Concerns No Information MEDICAL EQUIPMENT No Information MENTAL STATUS No Information FUNCTIONAL STATUS No Information ASSESSMENTS No Information PLAN OF TREATMENT Medication Medication Name Sig Start Date Stop Date Tramadol HCl 100 MG 1 tablet as needed Orally four times bel ly for 14 days Sep, Next Appt Details Provider Name:Bernabe Guadalupe, 08:15:00 AM, [address] [place], [address], Insurance Providers Payer Name Payer Address Payer Phone Insured Name Patient Relati onship to Insured Coverage Start Date Coverage End Date MEDICARE Part A and B [address] [facility] [address] LOC [place] self 1995 [facility] [address] [address] [facility] [address] LOC [place] [id number]
--- OUTSIDE RECORDS SUMMARY | 2020-12-05 17:31 | CCD ---
Author Author 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 Active 079218196 Problem Type 2 diabetes mellitus wit h diabetic nephropathy, 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 Active 05335944 Problem Nephrolithiasis N20.0 Active 01292039 Problem Epidermal cyst of neck L72.0 Active 171042710 Problem Non-seasonal allergic rhinitis, unspecified trigger J30.89 Active 57900629 Problem Type 2 diabetes mellitus wit h diabetic polyneuropathy, 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 Active 07151154 Problem 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 Active 653235608 Problem Anemia D64.9 Active 546117849 Problem Lumbosacral spondylosis with radiculopathy M47.27 Active 983222302 Problem Pruritus L29.9 Active 579938823 Problem Seborrheic keratoses L82.1 Active 158094649 Problem Typical atrial flutter I48.3 Active 898269122 Problem Peripheral vascular disease I73.9 Active 4000 70018 Problem Paronychia of fifth toe of left foot L03.032 Active 59184889925618922 Problem Macrocytosis D75.89 Active 280329451 Problem Type 2 diabetes mellitus with foot ulcer E11.621 Active 575589461 Problem 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 Act chase 750145291 Problem Atherosclerosis of [place] teries of right leg with ulceration of other part of lower leg I70.238 Active 790605632 Problem 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 Active 466299208 Problem Chronic venous hypertension (idiopathic) with ulcer of 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 Active 232523342807870 Problem 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 Active 501744549 Problem Xerosis cutis L85.3 Active 28153645 Problem Poorly controlled diabetes mellitus E11.65 Acti ve 742312114 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 302082029 Problem Dermatofibroma D23.9 Active 495393441 Problem Atherosclerosis of [place] ar teries of right leg with ulceration of other part of foot I70.235 Active 364341838 Problem Cellulitis of right lower extremity L03.115 Acti ve 641700894 Problem Cellulitis, unspecified cellulitis site L03.90 Active 821292136 Problem Adjustment disorder, unspecified type F43.20 Ac tive 40192590 ALLERGIES No Known Allergies ENCOUNTERS from 1935 to 2020-10-27 Encounter Location Date Provider Diagnosis [facility] [address] [place] [address] Oct, Gabriella [place] IMMUNIZATIONS Vaccine Route Administration Date Status Influenza [...] Education Language: Question Answer Notes Languages spoken: Ukrainian Voodoo: Question Answer Notes Voodoo 33 None Sexual Hx: Question Answer Notes [...] Orally Twice a day for 90 Active Ginkgo Biloba 60 MG 1 tab [...] RESULTS No Results REASON FOR VISIT Call Back MEDICAL (GENERAL) HISTORY Type Description Date Medical [...] right leg lower amputation 09/2020 Hospitalization History [facility] [place] 05/04/2020 Goals Section No Information Health Concerns No Information MEDICAL EQUIPMENT No Information MENTAL STATUS No Information FUNCTIONAL STATUS No Information ASSESSMENTS No Information PLAN OF TREATMENT Medication Medication Name Sig Start Date Stop Date Gabapentin 100 MG 1 capsule Orally three times daily for 30 days Next Appt Details Provider Name:Gabriella Baires, 2020-11-09 0 2:15:00 PM, [address] [place], [address], Insurance Providers Payer Name Payer Address Payer Phone Insured Name Patient Relati onship to Insured Coverage Start Date Coverage End Date [facility] [address] [address] [facility] [phone] [employer] G[place]IERREZ [id number] MEDICARE Part A and B [address] [place] [phone] [place] G[place] self 1995
--- OUTSIDE RECORDS SUMMARY | 2020-12-05 17:31 | CCD ---
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 without angina pectoris I25.810 Active 243553521 Problem Anemia D64.9 Active 162469160 Problem Lumbosacral spondylosis with radiculopathy M47.27 Active 745448535 Problem Essential hypertension I10 Active 07513143 Problem 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 Active 515985434 Problem Type 2 diabetes mellitus wit h diabetic nephropathy, 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 Active 11193144 Problem Nephrolithiasis N20.0 Active 06722316 Problem Type 2 diabetes mellitus with foot ulcer E11.621 Active 853420515 Problem 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 Act [place] 758834929 Problem Dermatofibroma D23.9 Active 741531646 Problem Xerosis cutis L85.3 Active 11591187 Problem Pruritus L29.9 Active 432000739 Problem Seborrheic keratoses L82.1 Active 038893836 Problem Typical atrial flutter I48.3 Active 969052937 Problem Peripheral vascular disease I73.9 Active 4000 67915 Problem Paronychia of fifth toe of left foot L03.032 Active 99015550468218610 Problem Macrocytosis D75.89 Active 731582490 Problem 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 Active 269962022 Problem Atherosclerosis of [place] ar teries of right leg with ulceration of other part of lower leg I70.238 Active 321269935 Problem Type 2 diabetes mellitus wit h diabetic polyneuropathy, 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 Active 99870333 Problem Cellulitis, unspecified cellulitis site L03.90 Active 846789549 Problem Epidermal cyst of neck L72.0 Active 004220612 Problem Adjustment disorder, unspecified type F43.20 Ac tive 52504052 Problem Non-seasonal allergic rhinitis, unspecified trigger J30.89 Active 19966521 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 701309832 Problem 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 Active 031572053 Problem Chronic venous hypertension (idiopathic) with ulcer of 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 Active 062929802699530 Problem Atherosclerosis of [place] ar teries of right leg with ulceration of other part of foot I70.235 Active 936982675 Problem Cellulitis of right lower extremity L03.115 Acti ve 564478471 ALLERGIES No Known Allergies ENCOUNTERS from 1935 to 2020-10-11 Encounter Location Date Provider Diagnosis [facility] [address] [place] [address] Sep, Gabriella Baires IMMUNIZATIONS Vaccine Route Administration [...] Finished High School Audit Question Answer Notes Interpretation: Alcohol Education Total Score: 0 Language: Question Answer Notes Languages spoken: Swedish Worship: Question Answer Notes Worship 33 None Sexual Hx: Question Answer Notes Had sex in the last 12 months (vaginal, oral, or anal)? No Have you ever had an STD? No Drug and Alcohol Question Answer Notes Interpretation: No problems reported Total Score: 0 BMI Care Goal Follow-Up Question Answer Notes [...] Information RESULTS No Results REASON FOR VISIT Hospital F/U MEDICAL (GENERAL) HISTORY Type Description Date Medical [...] 12/19/2017 Surgical History Angioplasty 04/2020 Hospitalization History [facility] [place] 05/04/2020 Goals Section No Information Health Concerns No Information MEDICAL EQUIPMENT No Information MENTAL STATUS No Information FUNCTIONAL STATUS No Information ASSESSMENTS No Information PLAN OF TREATMENT Medication Medication Name Sig Start Date Stop Date Tramadol HCl 100 MG 1 tablet as needed Orally four times bel ly for 14 days Sep, Next Appt Details Provider Name:Korey Smith, 2020-10-24 08:30:00 AM, [address] [place], [address], Insurance Providers Payer Name Payer Address Payer Phone Insured Name Patient Relati onship to Insured Coverage Start Date Coverage End Date [facility] [address] [id number] [facility] [phone] LOC G[place]Z [id number] MEDICARE Part A and B [address] [place] [phone] [place] self 1995
--- OUTSIDE RECORDS SUMMARY | 2020-12-05 17:31 | CCD | Continuity of Care Document ---
Author Author [facility] Organization Unknown Address [address] [facility] [address] [place] [address] Phone [phone] Care Team Providers Care Flat Bed Operator Name Role Phone Gabriella Baires M.D. AUTM [phone] Problems Active Problems Provider Date Essential hypertension [...] SIG Qnty Indications Ordering Provide r Date Metformin HCL 500mg Tablets 1 tab by mouth twice a day Unknown [place]al Calcium Capsules 1 by mouth twice a day Unknown [place] 3-6-9 W/Borage & Flax Seed 1200mg Capsules [...] by mouth three times a day Unknown Immunizations Description No Information Available Vital Signs Date Vital Result Comment 10/24/2020 12:14pm BP Systolic 94 mmHg BP Diastolic 64 mmHg Height 70 inches 5'10" Weight 196.00 lb BMI (Body Mass Index) 28.1 kg/m2 [place] Body Weight 166 lb Weight 88.906 kg BSA (Body Surface Area) 2.07 m2 08/02/2019 1:43pm BP Systolic 160 mmHg BP Diastolic 80 mmHg Height 70 inches 5'10" Weight 203.00 lb BMI (Body Mass Index) 29.1 kg/m2 [place] Body Weight 166 lb Weight 92.081 kg BSA (Body Surface Area) 2.10 m2 Results Description No Information Available Procedures Date Code Description Status 09/27/2020 54991 Amputation Above Knee Completed Medical Devices Description No Information Available Encounters Description No Information Available Assessments Date Code Description Provider 10/24/2020 Z89.611 Acquired absence of right leg ab ove knee KIMMY Grullon 10/24/2020 I70.202 Unspecified atherosc lerosis of [place] arteries of extremities, left leg KIMMY Grullon 09/27/2020 I70.235 Atherosclerosis of n [place]ive arteries of right leg with ulceration of other part of foot Cayla Fraser MD 09/27/2020 L97.519 Non-pressure chronic ulcer of other part of right foot with unspecified severity Cayla Fraser MD Plan of Treatment Future Appointment(s):* 11/02/2020 11:30 am - Sarath De La Cruz DO at [facility] 10/24/2020 - KIMMY Grullon* Z89.611 Acquired absence of right leg above knee * I70.202 Unspecified atherosclerosis of [place] arteries of extremities, left leg Functional Status Description No Information Available Mental Status Description No Information Available Referrals Description No Information Available
--- OUTSIDE RECORDS SUMMARY | 2020-12-05 17:31 | CCD ---
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 Active 391873582 Problem Anemia D64.9 Active 765228962 Problem Lumbosacral spondylosis with radiculopathy M47.27 Active 047961969 Problem Essential hypertension I10 Active 67485278 Problem 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 Active 846619730 Problem Type 2 diabetes mellitus wit h diabetic nephropathy, 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 Active 89130720 Problem Nephrolithiasis N20.0 Active 12135125 Problem Type 2 diabetes mellitus with foot ulcer E11.621 Active 154595779 Problem 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 Act [place] 464934135 Problem Dermatofibroma D23.9 Active 756315435 Problem Xerosis cutis L85.3 Active 14738908 Problem Pruritus L29.9 Active 958343587 Problem Seborrheic keratoses L82.1 Active 920644671 Problem Typical atrial flutter I48.3 Active 275498898 Problem Peripheral vascular disease I73.9 Active 4000 39786 Problem Paronychia of fifth toe of left foot L03.032 Active 87747623322836893 Problem Macrocytosis D75.89 Active 264498046 Problem 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 Active 333498487 Problem Atherosclerosis of [place] ar teries of right leg with ulceration of other part of lower leg I70.238 Active 151606648 Problem Type 2 diabetes mellitus wit h diabetic polyneuropathy, 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 Active 90089378 Problem Cellulitis, unspecified cellulitis site L03.90 Active 660917889 Problem Epidermal cyst of neck L72.0 Active 556989478 Problem Adjustment disorder, unspecified type F43.20 Ac tive 78119997 Problem Non-seasonal allergic rhinitis, unspecified trigger J30.89 Active 66874857 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 005262797 Problem 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 Active 464376723 Problem Chronic venous hypertension (idiopathic) with ulcer of 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 Active 198839272340821 Problem Atherosclerosis of [place] ar teries of right leg with ulceration of other part of foot I70.235 Active 389913513 Problem Cellulitis of right lower extremity L03.115 Acti ve 138478150 ALLERGIES No Known Allergies ENCOUNTERS from 1935 to 2020-10-10 Encounter Location Date Provider Diagnosis [facility] [address] [place] [address] Sep Bernabe Guadalupe IMMUNIZATIONS Vaccine Route Administration Date Status Influenza (Pharmacy Given) Unknown Aug 01, 2020 Refus ed Influenza (Denied) Unknown Sep 03, 2018 Refused [...] Education Language: Question Answer Notes Languages spoken: Macedonian Church: Question Answer Notes Church 33 None Sexual Hx: Question Answer Notes [...] Information RESULTS No Results REASON FOR VISIT [facility] MEDICAL (GENERAL) HISTORY Type Description Date [...] 12/19/2017 Surgical History Angioplasty 04/2020 Hospitalization History [facility] [place] 05/04/2020 Goals Section No Information Health Concerns No Information MEDICAL EQUIPMENT No Information MENTAL STATUS No Information FUNCTIONAL STATUS No Information ASSESSMENTS No Information PLAN OF TREATMENT Medication Medication Name Sig Start Date Stop Date Tramadol HCl 100 MG 1 tablet as needed Orally four times bel ly for 14 days Sep, Insurance Providers Payer Name Payer Address Payer Phone Insured Name Patient Relati onship to Insured Coverage Start Date Coverage End Date [facility] [address] [address] [facility] [phone] [place] [id number] MEDICARE Part A and B [address] [place] [phone] [place] GUTIERREZ self 1995
--- OUTSIDE RECORDS SUMMARY | 2020-12-05 17:31 | CCD ---
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 Active 679243453 Problem Type 2 diabetes mellitus wit h diabetic nephropathy, 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 Active 63919001 Problem Nephrolithiasis N20.0 Active 56630401 Problem Epidermal cyst of neck L72.0 Active 520214938 Problem Non-seasonal allergic rhinitis, unspecified trigger J30.89 Active 59218361 Problem Type 2 diabetes mellitus wit h diabetic polyneuropathy, 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 Active 65023076 Problem 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 Active 380613340 Problem Anemia D64.9 Active 249712579 Problem Lumbosacral spondylosis with radiculopathy M47.27 Active 315770256 Problem Pruritus L29.9 Active 846983754 Problem Seborrheic keratoses L82.1 Active 143432577 Problem Typical atrial flutter I48.3 Active 705520452 Problem Peripheral vascular disease I73.9 Active 4000 42767 Problem Paronychia of fifth toe of left foot L03.032 Active 25458045402362864 Problem Macrocytosis D75.89 Active 258615519 Problem Type 2 diabetes mellitus with foot ulcer E11.621 Active 579123370 Problem 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 Act [place] 290070642 Problem Atherosclerosis of [place] ar teries of right leg with ulceration of other part of lower leg I70.238 Active 527601031 Problem 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 Active 101657532 Problem Chronic venous hypertension (idiopathic) with ulcer of 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 Active 137935389487704 Problem 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 Active 224502557 Problem Xerosis cutis L85.3 Active 27044803 Problem Poorly controlled diabetes mellitus E11.65 Acti ve 061748871 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 091581240 Problem Dermatofibroma D23.9 Active 836406514 Problem Atherosclerosis of [place] ar teries of right leg with ulceration of other part of foot I70.235 Active 488083676 Problem Cellulitis of right lower extremity L03.115 Acti ve 446081068 Problem Cellulitis, unspecified cellulitis site L03.90 Active 837938446 Problem Adjustment disorder, unspecified type F43.20 Ac tive 83370456 ALLERGIES No Known Allergies ENCOUNTERS from 1935 to 2020-10-25 Encounter Location Date Provider Diagnosis [facility] [address] [place] [address] Oct, Gabriella Baires Above knee amputation [...] Education Language: Question Answer Notes Languages spoken: Sinhala Tenriism: Question Answer Notes Tenriism 33 None Sexual Hx: Question Answer Notes [...] right leg lower amputation 09/2020 Hospitalization History [facility] [place] 05/04/2020 Goals Section No Information Health Concerns [...] Provider Name:Gabriella Baires, 2020-11-09 0 2:15:00 PM, [address] [place], [address], Insurance Providers Payer Name Payer Address Payer Phone Insured Name Patient Relati onship to Insured Coverage Start Date Coverage End Date MEDICARE Part A and B [address] [facility] [id number] [phone] LOC [place] self 1995 [facility] [address] [address] [facility] [address] LOC G[place] [id number]
--- OUTSIDE RECORDS SUMMARY | 2020-12-05 17:31 | CCD ---
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 without angina pectoris I25.810 Active 711861299 Problem Anemia D64.9 Active 516103404 Problem Lumbosacral spondylosis with radiculopathy M47.27 Active 385389394 Problem Essential hypertension I10 Active 65866856 Problem 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 Active 534448527 Problem Type 2 diabetes mellitus wit h diabetic nephropathy, 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 Active 46735149 Problem Nephrolithiasis N20.0 Active 18718381 Problem Type 2 diabetes mellitus with foot ulcer E11.621 Active 885543674 Problem 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 Act chase 629148142 Problem Dermatofibroma D23.9 Active 589787618 Problem Xerosis cutis L85.3 Active 30142861 Problem Pruritus L29.9 Active 267535419 Problem Seborrheic keratoses L82.1 Active 125798184 Problem Typical atrial flutter I48.3 Active 928513705 Problem Peripheral vascular disease I73.9 Active 4000 67125 Problem Paronychia of fifth toe of left foot L03.032 Active 80373905843093469 Problem Macrocytosis D75.89 Active 571772934 Problem 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 Active 245527693 Problem Atherosclerosis of [place] ter[place] of right leg with ulceration of other part of lower leg I70.238 Active 848773639 Problem Type 2 diabetes mellitus wit h diabetic polyneuropathy, 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 Active 93974842 Problem Cellulitis, unspecified cellulitis site L03.90 Active 031745326 Problem Epidermal cyst of neck L72.0 Active 149136956 Problem Adjustment disorder, unspecified type F43.20 Ac tive 97354628 Problem Non-seasonal allergic rhinitis, unspecified trigger J30.89 Active 96783299 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 491610718 Problem 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 Active 469595939 Problem Chronic venous hypertension (idiopathic) with ulcer of 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 Active 634806614821317 Problem Atherosclerosis of [place] ter[place] of right leg with ulceration of other part of foot I70.235 Active 279978336 Problem Cellulitis of right lower extremity L03.115 Acti ve 347032888 ALLERGIES No Known Allergies ENCOUNTERS from 1936 to 2020-10-07 Encounter Location Date Provider Diagnosis [facility] [address] [place] [address], Damaris Tavares S/P femoral-popliteal bypass surgery Z95 .828 IMMUNIZATIONS Vaccine Route Administration Date Status Influenza [...] Education Language: Question Answer Notes Languages spoken: Andorran Sabianist: Question Answer Notes Sabianist 33 None Sexual Hx: Question Answer Notes [...] FOR REFERRAL No Information VITAL SIGNS Weight 202 lbs Apr, Height 70.25 in Apr, BMI 28.77 kg/m2 Apr, Heart Rate 72 /min Apr, Respiratory Rate 18 /min Apr, Temperature 98.6 degrees Fahrenheit Apr, Oximetry 99 Apr, Blood pressure systolic 126 mm Hg Apr, Blood pressure diastolic 59 mm Hg Apr, MEDICATIONS Medication SIG (Take, Route, Frequency, Duration) [...] Information RESULTS No Results REASON FOR VISIT F/U [facility]ECK MEDICAL (GENERAL) HISTORY Type Description Date Medical [...] 12/19/2017 Surgical History Angioplasty 04/2020 Hospitalization History [facility] [place] 05/04/2020 Goals Section No Information Health Concerns No Information MEDICAL EQUIPMENT No Information MENTAL STATUS No Information FUNCTIONAL STATUS No Information ASSESSMENTS Encounter Date Diagnosis Assessment Notes Treatment Notes Treatm ent Clinical Notes Apr, S/P femoral-popliteal bypass surgery (ICD-10 - Z 95.828) Pt appears to be doing well at this time. Recommend continue home physical therapy exercises as directed. Plan FU w/ PCP for preventative care visit as directed. Also, continue with wcc as directed. PLAN OF TREATMENT Medication Medication Name Sig Start Date Stop Date Tramadol HCl 100 MG 1 tablet as needed Orally four times bel ly for 14 days Sep, Treatment Notes Assessment Notes Clinical Notes S/P femoral-popliteal bypass surgery Pt appears to be doing well at this time. Recommend continue home physical therapy exercises as directed. Plan FU w/ PCP for preventative care visit as directed. Also, continue with wcc as directed. Next Appt Details w/ PCP Reason: Provider Name:Bernabe Guadalupe, 08:15:00 AM, [address] [place], [address], Insurance Providers Payer Name Payer Address Payer Phone Insured Name Patient Relati onship to Insured Coverage Start Date Coverage End Date MEDICARE Part A and B [address] [facility] [id number] [phone] LOC [place] self [address] [facility] [address] [id number] [facility] [address] LOC [place] [id number]
--- OUTSIDE RECORDS SUMMARY | 2020-12-05 17:31 | CCD ---
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 Active 657519853 Problem Anemia D64.9 Active 677497578 Problem Lumbosacral spondylosis with radiculopathy M47.27 Active 945947477 Problem Essential hypertension I10 Active 19611186 Problem 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 Active 696204470 Problem Type 2 diabetes mellitus wit h diabetic nephropathy, 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 Active 63346614 Problem Nephrolithiasis N20.0 Active 90775175 Problem Type 2 diabetes mellitus with foot ulcer E11.621 Active 170269900 Problem 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 Act [place] 213145444 Problem Dermatofibroma D23.9 Active 365734980 Problem Xerosis cutis L85.3 Active 30868371 Problem Pruritus L29.9 Active 888811130 Problem Seborrheic keratoses L82.1 Active 005049353 Problem Typical atrial flutter I48.3 Active 009435445 Problem Peripheral vascular disease I73.9 Active 4000 70479 Problem Paronychia of fifth toe of left foot L03.032 Active 99337287587869876 Problem Macrocytosis D75.89 Active 704484212 Problem 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 Active 731258809 Problem Atherosclerosis of [place] ar teries of right leg with ulceration of other part of lower leg I70.238 Active 177559575 Problem Type 2 diabetes mellitus wit h diabetic polyneuropathy, 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 Active 57547971 Problem Cellulitis, unspecified cellulitis site L03.90 Active 428839634 Problem Epidermal cyst of neck L72.0 Active 878930829 Problem Adjustment disorder, unspecified type F43.20 Ac tive 86037680 Problem Non-seasonal allergic rhinitis, unspecified trigger J30.89 Active 03914203 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 368656491 Problem 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 Active 956134661 Problem Chronic venous hypertension (idiopathic) with ulcer of 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 Active 149040493437027 Problem Atherosclerosis of [place] ar teries of right leg with ulceration of other part of foot I70.235 Active 186154527 Problem Cellulitis of right lower extremity L03.115 Acti ve 040141572 ALLERGIES No Known Allergies ENCOUNTERS from 1936 to 2020-10-09 Encounter Location Date Provider Diagnosis [facility] [address] [place] [address] Aug Bernabe Guadalupe IMMUNIZATIONS Vaccine Route Administration Date [...] Language: Question Answer Notes Languages spoken: Hebrew Shinto: Question Answer Notes Shinto 33 None Sexual Hx: Question Answer Notes [...] Information RESULTS No Results REASON FOR VISIT [facility] Apt. MEDICAL (GENERAL) HISTORY Type Description Date Medical [...] 12/19/2017 Surgical History Angioplasty 04/2020 Hospitalization History [facility] [place] 05/04/2020 Goals Section No Information Health Concerns No Information MEDICAL EQUIPMENT No Information MENTAL STATUS No Information FUNCTIONAL STATUS No Information ASSESSMENTS No Information PLAN OF TREATMENT Medication Medication Name Sig Start Date Stop Date Tramadol HCl 100 MG 1 tablet as needed Orally four times bel ly for 14 days Sep, Next Appt Details Provider Name:Bernabe Guadalupe, 08:15:00 AM, [address] [facility], [place], [address], Insurance Providers Payer Name Payer Address Payer Phone Insured Name Patient Relati onship to Insured Coverage Start Date Coverage End Date MEDICARE Part A and B [address] [facility] [address] LOC [place] self [address] [facility] [address] [id number] [facility] [address] LOC [place] [id number]
--- OUTSIDE RECORDS SUMMARY | 2020-12-05 17:33 | CCD ---
Author Author [facility] Organization [facility] Address Unknown Phone Unavailable Care Team Providers Care Smoke Jumper Supervisor Name Role Phone Von BECK MD Unavailable Unavailable Von BECK MD Unavailable Unavailable Von BECK MD Unavailable Unavailable Von BECK MD Unavailable Unavailable Von BECK MD Unavailable Unavailable Von BECK MD Unavailable Unavailable Von BECK MD Unavailable Unavailable Von BECK MD Unavailable Unavailable Von BECK MD Unavailable Unavailable Von BECK MD Unavailable Unavailable Von BECK MD Unavailable Unavailable Von BECK MD Unavailable Unavailable Von BECK MD Unavailable Unavailable Von BECK MD Unavailable Unavailable Von BECK MD Unavailable Unavailable Von BECK MD Unavailable Unavailable Von BECK MD Unavailable Unavailable Von BECK MD Unavailable Unavailable Von BECK MD Unavailable Unavailable Von BECK MD Unavailable Unavailable Von BECK MD Unavailable Unavailable Von BECK MD Unavailable Unavailable Von BECK MD Unavailable Unavailable Von BECK MD Unavailable Unavailable Von BECK MD Unavailable Unavailable Von BECK MD Unavailable Unavailable Von BECK MD Unavailable Unavailable Von BECK MD Unavailable Unavailable Von BECK MD Unavailable Unavailable Von BECK MD Unavailable Unavailable Von BECK MD Unavailable Unavailable Von BECK MD Unavailable Unavailable Von BECK MD Unavailable Unavailable Von BECK MD Unavailable Unavailable Von BECK MD Unavailable Unavailable Von BECK MD Unavailable Unavailable Von BECK MD Unavailable Unavailable Von BECK MD Unavailable Unavailable Von BECK MD Unavailable Unavailable Von BECK MD Unavailable Unavailable Von BECK MD Unavailable Unavailable Paulie Carter MD Unavailable Unavailable Paulie Carter MD Unavailable Unavailable Paulie Carter MD Unavailable Unavailable Paulie Carter MD Unavailable Unavailable Paulie Carter MD Unavailable Unavailable Vianey Cartertech Unavailable Unavailable Paulie Carter MD Unavailable Unavailable Paulie Carter MD Unavailable Unavailable Paulie Carter MD Unavailable Unavailable Paulie Carter MD Unavailable Unavailable Vianey Cartertech Unavailable Unavailable Vianey Cartertech Unavailable Unavailable Paulie Carter MD Unavailable Unavailable Paulie Carter MD Unavailable Unavailable Paulie Carter MD Unavailable Unavailable Paulie Carter MD Unavailable Unavailable Paulie Carter MD Unavailable Unavailable Vianey Cartertech Unavailable Unavailable Paulie Carter MD Unavailable Unavailable Paulie Carter MD Unavailable Unavailable Vianey Cartertech Unavailable Unavailable Paulie Carter MD Unavailable Unavailable SleVianey tuckertech Unavailable Unavailable Vianey Cartertech Unavailable Unavailable Tushar Carterjtech Unavailable Unavailable Vianey Cartertech Unavailable Unavailable Vianey Cartertech Unavailable Unavailable Vianey Cartertech Unavailable Unavailable SleVianey tuckertech Unavailable Unavailable SleTushar tuckerjtech Unavailable Unavailable SleTushar tuckerjtech Unavailable Unavailable SleTushar tuckerjtech Unavailable Unavailable SleVianey tuckertech Unavailable Unavailable Vianey Cartertech Unavailable Unavailable SlezkaPaulie MD Unavailable Unavailable Slezka, Vojtech MD Unavailable Unavailable SleVianey tuckertech Unavailable Unavailable SlecorykaTusharjtech Unavailable Unavailable SlePaulie tucker MD Unavailable Unavailable SlecorykaVianeytech Unavailable Unavailable SleVianey tuckertech Unavailable Unavailable SlezkaTusharjtech MD Unavailable Unavailable SlezkaTusharjtech MD Unavailable Unavailable Slezka Vojtech MD Unavailable Unavailable SlecorykaTusharjtech MD Unavailable Unavailable SlezkaTusharjtech MD Unavailable Unavailable SlezkaTusharjtech MD Unavailable Unavailable Slezka Vojtech MD Unavailable Unavailable Slezka Vojtech MD Unavailable Unavailable Slezka Vojtech MD Unavailable Unavailable SlecorykaTusharjtech MD Unavailable Unavailable SlecorykaTusharjtech MD Unavailable Unavailable SleTushar tcukerjtech MD Unavailable Unavailable SleTushar tuckerjtech MD Unavailable Unavailable SleTushar tuckerjtech MD Unavailable Unavailable SleTushar tuckerjtech MD Unavailable Unavailable SleVianey tuckertech MD Unavailable Unavailable SleVianey tuckertech MD Unavailable Unavailable Sow, L Rochelle PA Unavailable Unavailable Sow, L Rochelle PA Unavailable Unavailable Sow, L Rochelle PA Unavailable Unavailable Sow, L Rochelle PA Unavailable Unavailable Sow, L Rochelle PA Unavailable Unavailable Sow, L Rochelle PA Unavailable Unavailable Sow, L Rochelle PA Unavailable Unavailable Sow, L Rochelle PA Unavailable Unavailable Sow, L Rochelle PA Unavailable Unavailable Sow, L Rochelel PA Unavailable Unavailable Sow, L Rochelle PA Unavailable Unavailable Sow, L Rochelle PA Unavailable Unavailable Sow, L Rochelle PA Unavailable Unavailable Sow, L Rochelle PA Unavailable Unavailable Sow, L Rochelle PA Unavailable Unavailable Sow, L Rochelle PA Unavailable Unavailable Sow, L Rochelle PA Unavailable Unavailable Sow, L Rochelle PA Unavailable Unavailable Sow, L Rochelle PA Unavailable Unavailable Sow, L Rochelle PA Unavailable Unavailable Sow, L Rochelle PA Unavailable Unavailable Sow, L Rochelle PA Unavailable Unavailable Sow, L Rochelle PA Unavailable Unavailable Swo, L Rochelle PA Unavailable Unavailable Sow, L Rochelle PA Unavailable Unavailable Sow, L Rochelle PA Unavailable Unavailable Sow, L Rochelle PA Unavailable Unavailable Sow, L Rochelle PA Unavailable Unavailable Sow, L Rochelle PA Unavailable Unavailable Sow, L Rochelle PA Unavailable Unavailable Sow, L Rochelle PA Unavailable Unavailable Sow, L Rochelle PA Unavailable Unavailable Sow, L Rochelle PA Unavailable Unavailable Sow, L Rochelle PA Unavailable Unavailable Sow, L Rochelle PA Unavailable Unavailable Sow, L Rochelle PA Unavailable Unavailable Fish, B Hiren MARLOW Unavailable Unavailable Fish, B Hiren MARLOW Unavailable Unavailable Fish, B Hiren MARLOW Unavailable Unavailable Fish, B Hiren MARLOW Unavailable Unavailable Fish, B Hiren MARLOW Unavailable Unavailable Fish, B Hiren MARLOW Unavailable Unavailable Fish, B Hiren MARLOW Unavailable Unavailable Fish, B Hiren MARLOW Unavailable Unavailable Fish, B Hiren MARLOW Unavailable Unavailable Fish, B Hiren MARLOW Unavailable Unavailable Fish, B Hiren MARLOW Unavailable Unavailable Fish, B Hiren MARLOW Unavailable Unavailable Fish, B Hiren MARLOW Unavailable Unavailable Fish, B Hiren MARLOW Unavailable Unavailable Fish, B Hiren MARLOW Unavailable Unavailable Fish, B Hiren MARLOW Unavailable Unavailable Fish, B Hiren MARLOW Unavailable Unavailable Fish, B Hiren MARLOW Unavailable Unavailable Fish, B Hiren MARLOW Unavailable Unavailable Fish, B Hiren MARLOW Unavailable Unavailable Fish, B Hiren MARLOW Unavailable Unavailable Fish, B Hiren MARLOW Unavailable Unavailable Fish, B Hiren MARLOW Unavailable Unavailable Fish, B Hiren MARLOW Unavailable Unavailable Fish, B Hiren MARLOW Unavailable Unavailable Fish, B Hiren MARLOW Unavailable Unavailable Fish, B Hiren MARLOW Unavailable Unavailable Fish, B Hiren MARLOW Unavailable Unavailable Fish, B Hiren MARLOW Unavailable Unavailable Fish, B Hiren MARLOW Unavailable Unavailable Fish, B Hiren MARLOW Unavailable Unavailable Fish, B Hiren MARLOW Unavailable Unavailable Fish, B Hiren MARLOW Unavailable Unavailable Fish, B Hiren MARLOW Unavailable Unavailable Fish, B Hiren MARLOW Unavailable Unavailable Fish, B Hiren MARLOW Unavailable Unavailable Fish, B Hiren MARLOW Unavailable Unavailable Fish, B Hiren MARLOW Unavailable Unavailable Fish, B Hiren MARLOW Unavailable Unavailable Fish, B Hiren MARLOW Unavailable Unavailable Fish, B Hiren MARLOW Unavailable Unavailable Fish, B Hiren MARLOW Unavailable Unavailable Fish, B Hiren MARLOW Unavailable Unavailable Fish, B Hiren MARLOW Unavailable Unavailable Fish, B Hiren MARLOW Unavailable Unavailable Fish, B Hiren MARLOW Unavailable Unavailable Fish, B Hiren MARLOW Unavailable Unavailable Fish, B Hiren MARLOW Unavailable Unavailable Fish, B Hiren MARLOW Unavailable Unavailable Fish, B Hiren MARLOW Unavailable Unavailable Fish, B Hiren MARLOW Unavailable Unavailable Fish, B Hiren MARLOW Unavailable Unavailable Fish, B Hiren MARLOW Unavailable Unavailable Deshpande, L Beth RPA Unavailable Unavailable Deshpande, L Beth RPA Unavailable Unavailable Deshpande, L Beth RPA Unavailable Unavailable Deshpande, L Beth RPA Unavailable Unavailable Deshpande, L Beth RPA Unavailable Unavailable Deshpande, L Beth RPA Unavailable Unavailable Deshpande, L Beth RPA Unavailable Unavailable Deshpande, L Beth RPA Unavailable Unavailable Deshpande, L Beth RPA Unavailable Unavailable Deshpande, L Beth RPA Unavailable Unavailable Deshpande, L Beth RPA Unavailable Unavailable Deshpande, L Beth RPA Unavailable Unavailable Deshpande, L Beth RPA Unavailable Unavailable Deshpande, L Beth RPA Unavailable Unavailable Deshpande, L Beth RPA Unavailable Unavailable Deshpande, L Beth RPA Unavailable Unavailable Deshpande, L Beth RPA Unavailable Unavailable Deshpande, L Beth RPA Unavailable Unavailable Deshpande, L Beth RPA Unavailable Unavailable Deshpande, L Beth RPA Unavailable Unavailable Deshpande, L Beth RPA Unavailable Unavailable Deshpande, L Beth RPA Unavailable Unavailable Deshpande, L Beth RPA Unavailable Unavailable Deshpande, L Beth RPA Unavailable Unavailable Deshpande, L Beth RPA Unavailable Unavailable Deshpande, L Beth RPA Unavailable Unavailable Deshpande, L Beth RPA Unavailable Unavailable Deshpande, L Beth RPA Unavailable Unavailable Deshpande, L Beth RPA Unavailable Unavailable Deshpande, L Beth RPA Unavailable Unavailable Deshpande, L Beth RPA Unavailable Unavailable Deshpande, L Beth RPA Unavailable Unavailable JUAN MGurpreet MD Unavailable Unavailable JUAN MGurpreet MD Unavailable Unavailable JUAN MGurpreet MD Unavailable Unavailable JUAN MGurpreet MD Unavailable Unavailable JUAN MGurpreet MD Unavailable Unavailable Gurpreet MCGOWAN MD Unavailable Unavailable JUAN MGurpreet MD Unavailable Unavailable JUAN MGurpreet MD Unavailable Unavailable JUAN MGurpreet MD Unavailable Unavailable JUAN MGurpreet MD Unavailable Unavailable JUAN MGurpreet MD Unavailable Unavailable JUAN MGurpreet MD Unavailable Unavailable JUAN MGurpreet MD Unavailable Unavailable JUAN MGurpreet MD Unavailable Unavailable JUAN MGurpreet MD Unavailable Unavailable JUAN MGurpreet MD Unavailable Unavailable JUAN MGurpreet MD Unavailable Unavailable JUAN MGurpreet MD Unavailable Unavailable JUAN MGurpreet MD Unavailable Unavailable JUAN MGurpreet MD Unavailable Unavailable JUAN MGurpreet MD Unavailable Unavailable JUAN MGurpreet MD Unavailable Unavailable JUAN MGurpreet MD Unavailable Unavailable JUAN MGurpreet MD Unavailable Unavailable JUAN M JANEYOLI MARLOW Unavailable Unavailable JUAN MGurpreet JIMENEZ MD Unavailable Unavailable JUAN M, JANE MD Unavailable Unavailable Gurpreet MCGOWAN MD Unavailable Unavailable Gurpreet MCGOWAN MD Unavailable Unavailable Gurpreet MCGOWAN MD Unavailable Unavailable Gurpreet MCGOWAN MD Unavailable Unavailable Gurpreet MCGOWAN MD Unavailable Unavailable Gurpreet MCGOWAN MD Unavailable Unavailable Gurpreet MCGOWAN MD Unavailable Unavailable Gurpreet MCGOWAN MD Unavailable Unavailable Gurpreet MCGOWAN MD Unavailable Unavailable Gurpreet MCGOWAN MD Unavailable Unavailable Gurpreet MCGOWAN MD Unavailable Unavailable Gurpreet MCGOWAN MD Unavailable Unavailable Gurpreet MCGOWAN MD Unavailable Unavailable Gurpreet MCGOWAN MD Unavailable Unavailable Gurpreet MCGOWAN MD Unavailable Unavailable Gurpreet MCGOWAN MD Unavailable Unavailable Gurpreet MCGOWAN MD Unavailable Unavailable Gurpreet MCGOWAN MD Unavailable Unavailable Gurpreet MCGOWAN MD Unavailable Unavailable Gurpreet MCGOWAN MD Unavailable Unavailable Gurpreet MCGOWAN MD Unavailable Unavailable Gurpreet MCGOWAN MD Unavailable Unavailable Gurpreet MCGOWAN MD Unavailable Unavailable Gurpreet MCGOWAN MD Unavailable Unavailable Gurpreet MCGOWAN MD Unavailable Unavailable Gurpreet MCGOWAN MD Unavailable Unavailable Gurpreet MCGOWAN MD Unavailable Unavailable Gurpreet MCGOWAN MD Unavailable Unavailable Gurpreet MCGOWAN MD Unavailable Unavailable Gurpreet MCGOWAN MD Unavailable Unavailable Gurpreet MCGOWAN MD Unavailable Unavailable Gurpreet MCGOWAN MD Unavailable Unavailable Gurpreet MCGOWAN MD Unavailable Unavailable Gurpreet MCGOWAN MD Unavailable Unavailable Gurpreet MCGOWAN MD Unavailable Unavailable Gurpreet MCGOWAN MD Unavailable Unavailable Gurpreet MCGOWAN MD Unavailable Unavailable Gurpreet MCGOWAN MD Unavailable Unavailable Gurpreet MCGOWAN MD Unavailable Unavailable Gurpreet MCGOWAN MD Unavailable Unavailable Gurpreet MCGOWAN MD Unavailable Unavailable Gurpreet MCGOWAN MD Unavailable Unavailable Gurpreet MCGOWAN MD Unavailable Unavailable Gurpreet MCGOWAN MD Unavailable Unavailable Gurpreet MCGOWAN MD Unavailable Unavailable Gurpreet MCGOWAN MD Unavailable Unavailable Gurpreet MCGOWAN MD Unavailable Unavailable Gurpreet MCGOWAN MD Unavailable Unavailable Gurpreet MCGOWAN MD Unavailable Unavailable Gurpreet MCGOWAN MD Unavailable Unavailable Gurpreet MCGOWAN MD Unavailable Unavailable Gurpreet MCGOWAN MD Unavailable Unavailable Gurpreet MCGOWAN MD Unavailable Unavailable Gurpreet MCGOWAN MD Unavailable Unavailable Gurpreet MCGOWAN MD Unavailable Unavailable Gurpreet MCGOWAN MD Unavailable Unavailable Gurpreet MCGOWAN MD Unavailable Unavailable Gurpreet MCGOWAN MD Unavailable Unavailable Gurpreet MCGOWAN MD Unavailable Unavailable Gurpreet MCGOWAN MD Unavailable Unavailable Gurpreet MCGOWAN MD Unavailable Unavailable Gurpreet MCGOWAN MD Unavailable Unavailable Gurpreet MCGOWAN MD Unavailable Unavailable Gurpreet MCGOWAN MD Unavailable Unavailable Gurpreet MCGOWAN MD Unavailable Unavailable Gurpreet MCGOWAN MD Unavailable Unavailable Gurpreet MCGOWAN MD Unavailable Unavailable Gurpreet MCGOWAN MD Unavailable Unavailable Gurpreet MCGOWAN MD Unavailable Unavailable Gurpreet MCGOWAN MD Unavailable Unavailable Gurpreet MCGOWAN MD Unavailable Unavailable Gurpreet MCGOWAN MD Unavailable Unavailable Gurpreet MCGOWAN MD Unavailable Unavailable Gurpreet MCGOWAN MD Unavailable Unavailable Gurpreet MCGOWAN MD Unavailable Unavailable Gurpreet MCGOWAN MD Unavailable Unavailable Gurpreet MCGOWAN MD Unavailable Unavailable Gurpreet MCGOWAN MD Unavailable Unavailable Gurpreet MCGOWAN MD Unavailable Unavailable Gurpreet MCGOWAN MD Unavailable Unavailable Gurpreet MCGOWAN MD Unavailable Unavailable Gurpreet MCGOWAN MD Unavailable Unavailable Gurpreet MCGOWAN MD Unavailable Unavailable Gurpreet MCGOWAN MD Unavailable Unavailable Gurpreet MCGOWAN MD Unavailable Unavailable Gurpreet MCGOWAN MD Unavailable Unavailable Gurpreet MCGOWAN MD Unavailable Unavailable Gurpreet MCGOWAN MD Unavailable Unavailable Gurpreet MCGOWAN MD Unavailable Unavailable Gurpreet MCGOWAN MD Unavailable Unavailable Gurpreet MCGOWAN MD Unavailable Unavailable Gurpreet MCGOWAN MD Unavailable Unavailable Gurpreet MCGOWAN MD Unavailable Unavailable Gurpreet MCGOWAN MD Unavailable Unavailable Gurpreet MCGOWAN MD Unavailable Unavailable Gurpreet MCGOWAN MD Unavailable Unavailable Gurpreet MCGOWAN MD Unavailable Unavailable Gurpreet MCGOWAN MD Unavailable Unavailable Gurpreet MCGOWAN MD Unavailable Unavailable Gurpreet MCGOWAN MD Unavailable Unavailable Gurpreet MCGOWAN MD Unavailable Unavailable Gurpreet MCGOWAN MD Unavailable Unavailable Gurpreet MCGOWAN MD Unavailable Unavailable Gurpreet MCGOWAN MD Unavailable Unavailable Gurpreet MCGOWAN MD Unavailable Unavailable Augustine Cheek MD Unavailable Unavailable Augustine Cheek MD Unavailable Unavailable Augustine Cheek MD Unavailable Unavailable Augustine Cheek MD Unavailable Unavailable Augustine Cheek MD Unavailable Unavailable Augustine Cheek MD Unavailable Unavailable Augustine Cheek MD Unavailable Unavailable Augustine Cheek MD Unavailable Unavailable Augustine Cheek MD Unavailable Unavailable Augustine Cheek MD Unavailable Unavailable Augustine Cheek MD Unavailable Unavailable Augustine Cheek MD Unavailable Unavailable Augustine Cheek MD Unavailable Unavailable Augustine Cheek MD Unavailable Unavailable Augustine Cheek MD Unavailable Unavailable Augustine Cheek MD Unavailable Unavailable Augustine Cheek MD Unavailable Unavailable Fish, B Hiren MARLOW Unavailable Unavailable Fish, B Hiren MARLOW Unavailable Unavailable Fish, B Hiren MARLOW Unavailable Unavailable Fish, B Hiren MARLOW Unavailable Unavailable Fish, B Hiren MARLOW Unavailable Unavailable Fish, B Hiren MARLOW Unavailable Unavailable Fish, B Hiren MARLOW Unavailable Unavailable Fish, B Hiren MARLOW Unavailable Unavailable Fish, B Hiren MARLOW Unavailable Unavailable Fish, B Hiren MARLOW Unavailable Unavailable Fish, B Hiren MARLOW Unavailable Unavailable Fish, B Hiren MARLOW Unavailable Unavailable Fish, B Hiren MARLOW Unavailable Unavailable Fish, B Hiren MARLOW Unavailable Unavailable Fish, B Hiren MARLOW Unavailable Unavailable Fish, B Hiren MARLOW Unavailable Unavailable Fish, B Hiren MARLOW Unavailable Unavailable Fish, B Hiren MARLOW Unavailable Unavailable Fish, B Hiren MARLOW Unavailable Unavailable Fish, B Hiren MARLOW Unavailable Unavailable Fish, B Hiren MARLOW Unavailable Unavailable Fish, B Hiren MARLOW Unavailable Unavailable Fish, B Hiren MARLOW Unavailable Unavailable Fish, B Hiren MARLOW Unavailable Unavailable Fish, B Hiren MARLOW Unavailable Unavailable Fish, B Hiren MARLOW Unavailable Unavailable Fish, B Hiren MARLOW Unavailable Unavailable Fish, B Hiren MARLOW Unavailable Unavailable Fish, B Hiren MARLOW Unavailable Unavailable Fish, B Hiren MARLOW Unavailable Unavailable Fish, B Hiren MARLOW Unavailable Unavailable Fish, B Hiren MARLOW Unavailable Unavailable Fish, B Hiren MARLOW Unavailable Unavailable Fish, B Hiren MARLOW Unavailable Unavailable Fish, B Hiren MARLOW Unavailable Unavailable Fish, B Hiren MARLOW Unavailable Unavailable Fish, B Hiren MARLOW Unavailable Unavailable Fish, B Hiren MARLOW Unavailable Unavailable Fish, B Hiren MARLOW Unavailable Unavailable Fish, B Hiren MARLOW Unavailable Unavailable Fish, B Hiren MARLOW Unavailable Unavailable Fish, B Hiren MARLOW Unavailable Unavailable Fish, B Hiren MARLOW Unavailable Unavailable Fish, B Hiren MARLOW Unavailable Unavailable Fish, B Hiren MARLOW Unavailable Unavailable Fish, B Hiren MARLOW Unavailable Unavailable Fish, B Hiren MARLOW Unavailable Unavailable Fish, B Hiren MARLOW Unavailable Unavailable Fish, B Hiren MARLOW Unavailable Unavailable Fish, B Hiren MARLOW Unavailable Unavailable Fish, B Hiren MARLOW Unavailable Unavailable Fish, B Hiren MARLOW Unavailable Unavailable Fish, B Hiren MARLOW Unavailable Unavailable Re-disclosure Warning The records that you are about to access may contain information from federally-assisted alcohol or drug abuse programs. If such information is present, then the following federally mandated warning applies: This information has been disclosed to you from records protected by federal confidentiality rules (42 CFR part 2). The federal rules prohibit you from making any further disclosure of this information unless further disclosure is expressly permitted by the written consent of the person to whom it pertains or as otherwise permitted by 42 CFR part 2. A general authorization for the release of medical or other information is NOT sufficient for this purpose. The Federal rules restrict any use of the information to criminally investigate or prosecute any alcohol or drug abuse patient.The records that you are about to access may contain highly sensitive health information, the redisclosure of which is protected by Article 27-F of the [facility] Public Health law. If you continue you may have access to information: Regarding HIV / AIDS; Provided by facilities licensed or operated by the [facility] Office of Mental Health; or Provided by the [facility] Office for People With Developmental Disabilities. If such information is present, then the following [facility] mandated warning applies: This information has been disclosed to you from confidential records which are protected by state law. State law prohibits you from making any further disclosure of this information without the specific written consent of the person to whom it pertains, or as otherwise permitted by law. Any unauthorized further disclosure in violation of state law may result in a fine or [place] [facility] sentence or both. A general authorization for the release of medical or other information is NOT sufficient authorization for further disc losure. Allergies and Adverse Reactions Type Description Substance Reaction Status Data Source(s ) Drug Class NO KNOWN ALLERGIES NO KNOWN [facility] Family History Family Member Name Family Member Gender Family Member Status Date o f Status Description Data Source(s) Unknown Male Problem [facility] ([facility]) Unknown Unknown Problem [facility] ([facility] Unknown Female Problem MEDENT ([facility], ) Encounters Encounter Providers Location Date Indications Data Source(s ) Outpatient Attender: LYLE Hayes errer: LYLE BECK MDConsultant: LYLE BECK MD 12/05/2020 01:17:00 PM EST - 12/05/2020 01:27:00 PM EST [facility] [place] [address] [facility] [address] 11/23/2020 12:00:00 AM EST eCW1 ([facility]) [place] [address] [facility] [address] 11/21/2020 12:00:00 AM EST eCW1 ([facility]) Outpatient Attender: Rochelle ONEAL [email or web address] 12:00:00 AM EST - 11/17/2020 03:52:37 PM EST [facility] [place] [address] [facility] [address] 11/13/2020 12:00:00 AM EST eCW1 ([facility]) [place] [address] [facility] [address] 11/09/2020 12:00:00 AM EST eCW1 ([facility]) [place] [address] [facility] [place] [address] 11/09/2020 12:00:00 AM EST eCW1 ([facility]) [place] [address] [facility] [address] 11/07/2020 12:00:00 AM EST eCW1 ([facility]) [place] [address] [facility] [address] 10/31/2020 12:00:00 AM EST eCW1 ([facility]) Unknown [address] [facility] [place] [address] 10/30/2020 12:00:00 AM EST eCW1 ([facility]) Unknown [address] [facility] [place] [address] 10/26/2020 12:00:00 AM EST eCW1 ([facility]) Office Visit Attender: Beth Escalante/Gerald/Benji/Benjy ford 10/24/2020 10:45:00 AM EST [facility] ([facility] [place] [address] [facility] [address] 10/24/2020 12:00:00 AM EST eCW1 ([facility]) Out[place] [address] [facility] [address] 10/19/2020 12:00:00 AM EST eCW1 ([facility]) [place] [address] [facility] [address] 10/18/2020 12:00:00 AM EST eCW1 ([facility]) [place] [address] [facility] [address] 10/11/2020 12:00:00 AM EST eCW1 ([facility]) [place] [address] [facility] [place] [address] 10/10/2020 12:00:00 AM EST eCW1 ([facility]) [place] [address] [facility] [address] 10/03/2020 12:00:00 AM EST eCW1 ([facility]) [place] [address] [facility] [address] 10/02/2020 12:00:00 AM EST eCW1 ([facility]) Unknown [address] [facility] [address] 09/28/2020 12:00:00 AM EST eCW1 ([facility]) Unknown [address] [facility] [address] 09/26/2020 12:00:00 AM EST eCW1 ([facility]) [place] [address] [facility] [address] 09/25/2020 12:00:00 AM EST eCW1 ([facility]) [place] [address] [facility] [place] [address] 09/19/2020 12:00:00 AM EST eCW1 ([facility]) Unknown [address] [facility] [place] [id number] 09/18/2020 12:00:00 AM EST eCW1 ([facility]) Unknown [address] [facility] [address] 09/16/2020 12:00:00 AM EST eCW1 ([facility]) Unknown [address] [facility] [place] [address] 09/13/2020 12:00:00 AM EST eCW1 ([facility]) Outpatient [address] [facility] [address] 09/12/2020 12:00:00 AM EST eCW1 ([facility]) Outpatient [address] [facility] [place] [address] 09/12/2020 12:00:00 AM EST eCW1 ([facility]) Outpatient [address] [facility] [place] [address] 09/07/2020 12:00:00 AM EST eCW1 ([facility]) ([id number]) For Template Castellanos [address] [place] [address] 09/05/2020 12:00:00 AM EST eCW1 ([facility]) Unknown [address] [facility] [address] 08/29/2020 12:00:00 AM EST eCW1 ([facility]) Unknown [address] [facility] [address] 08/23/2020 12:00:00 AM EST eCW1 ([facility]) Unknown [address] [facility] [place] [address] 08/22/2020 12:00:00 AM EST eCW1 ([facility]) Outpatient [address] [facility] [place] [address] 08/22/2020 12:00:00 AM EST eCW1 ([facility]) Outpatient [address] [facility] [place] [address] 08/22/2020 12:00:00 AM EST eCW1 ([facility]) Unknown [address] [facility] [address] 08/16/2020 12:00:00 AM EDT eCW1 ([facility]) Outpatient [address] [facility] [address] 08/15/2020 12:00:00 AM EDT eCW1 ([facility]) ([id number]) For Template Castellanos [address] [place] [address] 08/08/2020 12:00:00 AM EDT eCW1 ([facility]) ([id number]) For Template Castellanos [address] [place] [address] 08/01/2020 12:00:00 AM EDT eCW1 ([facility]) ([id number]) For Template Castellanos [address] [place] [address] 07/25/2020 12:00:00 AM EDT eCW1 ([facility]) (WND NP120) New Patient 120 Min [address] [place] [address] 07/18/2020 12:00:00 AM EDT eCW1 ([facility]) Unknown [address] [facility] [address] 07/18/2020 12:00:00 AM EDT eCW1 ([facility]) Unknown [address] [facility] [place] [address] 07/18/2020 12:00:00 AM EDT eCW1 ([facility]) Inpatient Attender: YOLI Longoria DAdmitter: YOLI MCGOWAN MDConsultant: YOLI MCGOWAN MD [id number] 07/04/2020 12:00:00 AM EDT - 07/07/2020 06:34:00 PM EDT 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 [facility] [place] [address] [facility] [address] 06/29/2020 12:00:00 AM EDT eCW1 ([facility]) Outpatient [address] [facility], [facility] [address] 05/12/2020 12:00:00 AM EDT [facility]CW1 [facility] Outpatient [address] [facility], [facility] [address] 05/05/2020 12:00:00 AM EDT eCW1 [facility]) Unknown [address] [facility] [address] 05/04/2020 12:00:00 AM EDT eCW1 [facility]) Outpatient Attender: YOLI MCGOWAN MD 05/02/2020 11:00: 00 AM EDT [facility] Outpatient [address] [facility] [address] 04/27/2020 12:00:00 AM EDT eCW1 ([facility]) Outpatient Referrer: Hiren Mcneil MD 04/12/2020 02:11:00 PM EDT [facility] Unknown [address] [facility] [address] 04/04/2020 12:00:00 AM EDT eCW1 ([facility]) Inpatient Attender: YOLI Longoria DAttender: Chiki Cheek MDAdmitter: YOLI MCGOWAN MDReferrer: YOLI MCGOWAN MDConsultant: YOLI MCGOWAN MD [id number] 04/02/2020 12:00:00 AM EDT - 04/12/2020 12:36:00 PM EDT Unspecified atherosclerosis of kiana arteries of extremities, unspecified extremity [facility] Unspecified atherosclerosis of kiana ar teries of extremities, unspecified extremity Patient discharged. ([id number]) For Template Castellanos [address] [place] [address] 03/30/2020 12:00:00 AM EDT eCW1 ([facility]) Unknown [address] [facility] [address] 03/27/2020 12:00:00 AM EDT [facility]CW1 [facility] [place] Unknown [address] [facility] [address] 03/24/2020 12:00:00 AM EDT eCW1 ([facility]) Unknown [address] [facility] [address] 03/24/2020 12:00:00 AM EDT eCW1 ([facility]) Unknown [address] [facility] [address] 03/24/2020 12:00:00 AM EDT eCW1 ([facility]) (WND NP120) New Patient 120 Min [address] [place] [address] 03/23/2020 12:00:00 AM EDT eCW1 ([facility]) Outpatient Attender: Hiren Mcneil MD Physical Therapy 03/22/2020 0 2:15:00 PM EDT [facility] ([facility]) [facility] [address] [facility] [address] 03/17/2020 12:00:00 AM EDT eCW1 ([facility]) [facility] [address] [facility] [address] 03/17/2020 12:00:00 AM EDT eCW1 ([facility]) Outpatient [address] [facility] [address] 03/16/2020 12:00:00 AM EDT eCW1 ([facility]) [facility] [address] [facility] [address] 03/09/2020 12:00:00 AM EDT eCW1 ([facility]) [facility] [address] [facility] [address] 03/07/2020 12:00:00 AM EDT eCW1 ([facility]) [facility] [address] [facility] [address] 03/07/2020 12:00:00 AM EDT eCW1 ([facility]) [facility] [address] [facility] [address] 02/29/2020 12:00:00 AM EDT eCW1 [facility]) [facility] [address] [facility] [address] 02/25/2020 12:00:00 AM EDT eCW1 ([facility]) [facility] [place] [address] [facility] [address] 02/22/2020 12:00:00 AM EDT eCW1 ([facility]) [facility] [address] [facility] [address] 02/22/2020 12:00:00 AM EDT eCW1 ([facility]) Outpatient Attender: Hiren Mcneil MD Physical Therapy 12/31/2019 0 3:30:00 PM EDT [facility] ([facility]) [facility] [address] [place] [address] 12/24/2019 12:00:00 AM EST eCW1 ([facility]) [facility] [address] [place] [address], [place] [address] 12/23/2019 12:00:00 AM EST eCW1 ([facility]) Outpatient Referrer: Hiren Mcneil MD 11/19/2019 07:15:00 AM EST [facility] [address] [place] [address], [place] [address] 11/02/2019 12:00:00 AM EST eCW1 ([facility]) Outpatient Attender: Paulie Carter MD [email or web address] 10/20 12:00:00 AM EST [facility] Immunizations Vaccine Date Status Description Data Source(s) IIV3. This is one of two codes replacing CVX 15, which is being retired. 08/01/2020 03:23:00 PM EDT completed eCW1 ([facility]) IIV3. This is one of two codes replacing CVX 15, which is being retired. 08/01/2020 03:23:00 PM EDT completed eCW1 ([facility]) IIV3. This is one of two codes replacing CVX 15, which is being retired. 08/01/2020 03:23:00 PM EDT completed eCW1 ([facility]) IIV3. This is one of two codes replacing CVX 15, which is being retired. 08/01/2020 03:23:00 PM EDT completed eCW1 ([facility]) IIV3. This is one of two codes replacing CVX 15, which is being retired. 08/01/2020 03:23:00 PM EDT completed eCW1 ([facility]) IIV3. This is one of two codes replacing CVX 15, which is being retired. 08/01/2020 03:23:00 PM EDT completed eCW1 ([facility]) IIV3. This is one of two codes replacing CVX 15, which is being retired. 08/01/2020 03:23:00 PM EDT completed eCW1 ([facility]) IIV3. This is one of two codes replacing CVX 15, which is being retired. 08/01/2020 03:23:00 PM EDT completed eCW1 ([facility]) IIV3. This is one of two codes replacing CVX 15, which is being retired. 08/01/2020 03:23:00 PM EDT completed eCW1 ([facility]) IIV3. This is one of two codes replacing CVX 15, which is being retired. 08/01/2020 03:23:00 PM EDT completed eCW1 ([facility]) IIV3. This is one of two codes replacing CVX 15, which is being retired. 08/01/2020 03:23:00 PM EDT completed eCW1 ([facility]) IIV3. This is one of two codes replacing CVX 15, which is being retired. 08/01/2020 03:23:00 PM EDT completed eCW1 ([facility]) IIV3. This is one of two codes replacing CVX 15, which is being retired. 08/01/2020 03:23:00 PM EDT completed eCW1 ([facility]) IIV3. This is one of two codes replacing CVX 15, which is being retired. 08/01/2020 03:23:00 PM EDT completed eCW1 ([facility]) IIV3. This is one of two codes replacing CVX 15, which is being retired. 08/01/2020 03:23:00 PM EDT completed eCW1 ([facility]) IIV3. This is one of two codes replacing CVX 15, which is being retired. 08/01/2020 03:23:00 PM EDT completed eCW1 ([facility]) IIV3. This is one of two codes replacing CVX 15, which is being retired. 08/01/2020 03:23:00 PM EDT completed eCW1 ([facility]) IIV3. This is one of two codes replacing CVX 15, which is being retired. 08/01/2020 03:23:00 PM EDT completed eCW1 ([facility]) IIV3. This is one of two codes replacing CVX 15, which is being retired. 08/01/2020 03:23:00 PM EDT completed eCW1 ([facility]) IIV3. This is one of two codes replacing CVX 15, which is being retired. 08/01/2020 03:23:00 PM EDT completed eCW1 ([facility]) IIV3. This is one of two codes replacing CVX 15, which is being retired. 08/01/2020 03:23:00 PM EDT completed eCW1 ([facility]) IIV3. This is one of two codes replacing CVX 15, which is being retired. 08/01/2020 03:23:00 PM EDT completed eCW1 ([facility]) IIV3. This is one of two codes replacing CVX 15, which is being retired. 08/01/2020 03:23:00 PM EDT completed eCW1 ([facility]) IIV3. This is one of two codes replacing CVX 15, which is being retired. 08/01/2020 03:23:00 PM EDT completed eCW1 ([facility]) IIV3. This is one of two codes replacing CVX 15, which is being retired. 08/01/2020 03:23:00 PM EDT completed eCW1 ([facility]) IIV3. This is one of two codes replacing CVX 15, which is being retired. 08/01/2020 03:23:00 PM EDT completed eCW1 ([facility]) IIV3. This is one of two codes replacing CVX 15, which is being retired. 08/01/2020 03:23:00 PM EDT completed eCW1 ([facility]) IIV3. This is one of two codes replacing CVX 15, which is being retired. 08/01/2020 03:23:00 PM EDT completed eCW1 ([facility]) IIV3. This is one of two codes replacing CVX 15, which is being retired. 08/01/2020 03:23:00 PM EDT completed eCW1 ([facility]) IIV3. This is one of two codes replacing CVX 15, which is being retired. 08/01/2020 03:23:00 PM EDT completed eCW1 ([facility]) IIV3. This is one of two codes replacing CVX 15, which is being retired. 08/01/2020 03:23:00 PM EDT completed eCW1 ([facility]) IIV3. This is one of two codes replacing CVX 15, which is being retired. 08/01/2020 03:23:00 PM EDT completed eCW1 ([facility]) IIV3. This is one of two codes replacing CVX 15, which is being retired. 08/01/2020 03:23:00 PM EDT completed eCW1 ([facility]) IIV3. This is one of two codes replacing CVX 15, which is being retired. 08/01/2020 03:23:00 PM EDT completed eCW1 ([facility]) IIV3. This is one of two codes replacing CVX 15, which is being retired. 08/01/2020 03:23:00 PM EDT completed eCW1 ([facility]) IIV3. This is one of two codes replacing CVX 15, which is being retired. 08/01/2020 03:23:00 PM EDT completed eCW1 ([facility]) IIV3. This is one of two codes replacing CVX 15, which is being retired. 08/01/2020 03:23:00 PM EDT completed eCW1 ([facility]) IIV3. This is one of two codes replacing CVX 15, which is being retired. 08/01/2020 03:23:00 PM EDT completed eCW1 ([facility]) IIV3. This is one of two codes replacing CVX 15, which is being retired. 08/01/2020 03:23:00 PM EDT completed eCW1 ([facility]) IIV3. This is one of two codes replacing CVX 15, which is being retired. 08/01/2020 03:23:00 PM EDT completed eCW1 ([facility]) IIV3. This is one of two codes replacing CVX 15, which is being retired. 08/01/2020 02:55:00 PM EDT completed eCW1 ([facility]) IIV3. This is one of two codes replacing CVX 15, which is being retired. 08/01/2020 02:55:00 PM EDT completed eCW1 ([facility]) IIV3. This is one of two codes replacing CVX 15, which is being retired. 08/01/2020 02:55:00 PM EDT completed eCW1 ([facility]) IIV3. This is one of two codes replacing CVX 15, which is being retired. 08/01/2020 02:55:00 PM EDT completed eCW1 ([facility]) IIV3. This is one of two codes replacing CVX 15, which is being retired. 08/01/2020 02:55:00 PM EDT completed eCW1 ([facility]) IIV3. This is one of two codes replacing CVX 15, which is being retired. 08/01/2020 02:55:00 PM EDT completed eCW1 ([facility]) IIV3. This is one of two codes replacing CVX 15, which is being retired. 08/01/2020 02:55:00 PM EDT completed eCW1 ([facility]) IIV3. This is one of two codes replacing CVX 15, which is being retired. 08/01/2020 02:55:00 PM EDT completed eCW1 ([facility]) IIV3. This is one of two codes replacing CVX 15, which is being retired. 08/01/2020 02:55:00 PM EDT completed eCW1 ([facility]) IIV3. This is one of two codes replacing CVX 15, which is being retired. 08/01/2020 02:55:00 PM EDT completed eCW1 ([facility]) IIV3. This is one of two codes replacing CVX 15, which is being retired. 08/01/2020 02:55:00 PM EDT completed eCW1 ([facility]) IIV3. This is one of two codes replacing CVX 15, which is being retired. 08/01/2020 02:55:00 PM EDT completed eCW1 ([facility]) IIV3. This is one of two codes replacing CVX 15, which is being retired. 08/01/2020 02:55:00 PM EDT completed eCW1 ([facility]) IIV3. This is one of two codes replacing CVX 15, which is being retired. 08/01/2020 02:55:00 PM EDT completed eCW1 ([facility]) IIV3. This is one of two codes replacing CVX 15, which is being retired. 08/01/2020 02:55:00 PM EDT completed eCW1 ([facility]) IIV3. This is one of two codes replacing CVX 15, which is being retired. 08/01/2020 02:55:00 PM EDT completed eCW1 ([facility]) IIV3. This is one of two codes replacing CVX 15, which is being retired. 08/01/2020 02:55:00 PM EDT completed eCW1 ([facility]) IIV3. This is one of two codes replacing CVX 15, which is being retired. 08/01/2020 02:55:00 PM EDT completed eCW1 ([facility]) IIV3. This is one of two codes replacing CVX 15, which is being retired. 08/01/2020 02:55:00 PM EDT completed eCW1 ([facility]) IIV3. This is one of two codes replacing CVX 15, which is being retired. 08/01/2020 02:55:00 PM EDT completed eCW1 ([facility]) IIV3. This is one of two codes replacing CVX 15, which is being retired. 08/01/2020 02:55:00 PM EDT completed eCW1 ([facility]) IIV3. This is one of two codes replacing CVX 15, which is being retired. 08/01/2020 02:55:00 PM EDT completed eCW1 ([facility]) IIV3. This is one of two codes replacing CVX 15, which is being retired. 08/01/2020 02:55:00 PM EDT completed eCW1 ([facility]) IIV3. This is one of two codes replacing CVX 15, which is being retired. 08/01/2020 02:55:00 PM EDT completed eCW1 ([facility]) IIV3. This is one of two codes replacing CVX 15, which is being retired. 08/01/2020 02:55:00 PM EDT completed eCW1 ([facility]) IIV3. This is one of two codes replacing CVX 15, which is being retired. 08/01/2020 02:55:00 PM EDT completed eCW1 ([facility]) IIV3. This is one of two codes replacing CVX 15, which is being retired. 08/01/2020 02:55:00 PM EDT completed eCW1 ([facility]) IIV3. This is one of two codes replacing CVX 15, which is being retired. 08/01/2020 02:55:00 PM EDT completed eCW1 ([facility]) IIV3. This is one of two codes replacing CVX 15, which is being retired. 08/01/2020 02:55:00 PM EDT completed eCW1 ([facility]) IIV3. This is one of two codes replacing CVX 15, which is being retired. 08/01/2020 02:55:00 PM EDT completed eCW1 ([facility]) IIV3. This is one of two codes replacing CVX 15, which is being retired. 08/01/2020 02:55:00 PM EDT completed eCW1 ([facility]) IIV3. This is one of two codes replacing CVX 15, which is being retired. 08/01/2020 02:55:00 PM EDT completed eCW1 ([facility]) IIV3. This is one of two codes replacing CVX 15, which is being retired. 08/01/2020 02:55:00 PM EDT completed eCW1 ([facility]) IIV3. This is one of two codes replacing CVX 15, which is being retired. 08/01/2020 02:55:00 PM EDT completed eCW1 ([facility]) IIV3. This is one of two codes replacing CVX 15, which is being retired. 08/01/2020 02:55:00 PM EDT completed eCW1 ([facility]) IIV3. This is one of two codes replacing CVX 15, which is being retired. 08/01/2020 02:55:00 PM EDT completed eCW1 ([facility]) IIV3. This is one of two codes replacing CVX 15, which is being retired. 08/01/2020 02:55:00 PM EDT completed eCW1 ([facility]) IIV3. This is one of two codes replacing CVX 15, which is being retired. 08/01/2020 02:55:00 PM EDT completed eCW1 ([facility]) IIV3. This is one of two codes replacing CVX 15, which is being retired. 08/01/2020 02:55:00 PM EDT completed eCW1 ([facility]) IIV3. This is one of two codes replacing CVX 15, which is being retired. 08/01/2020 02:55:00 PM EDT completed eCW1 ([facility]) Medications Medication Brand Name Start Date Product Form Dose Route Admi nistrative Instructions Pharmacy Instructions Status Indications Reaction Description Data Source(s) Sucralfate 1000 MG Oral Tablet sucralfate (CARAFATE) 1 g tablet sucralfate (CARAFATE) 1 g tablet 11/15/2020 12:00:00 AM EST a ctive [facility] atorvastatin 40 MG Oral Tablet atorvastatin (LIPITOR) 40 MG tablet atorvastatin (LIPITOR) 40 MG tablet 11/15/2020 12:00:00 AM EST 40 mg Oral active Take 40 mg by mouth daily [facility] duloxetine 30 MG Delayed Release Oral Ca psule DULoxetine (CYMBALTA) 30 MG capsule DULoxetine (CYMBALTA) 30 MG capsule 11/15/2020 12:00:00 AM EST active [facility] Linagliptin 5 MG Oral Tablet [Tradjenta] Tradjenta 5 MG Trad jenta 5 MG 11/02/2020 12:00:00 AM EST 1.0 {tablet} active Tradjenta 5 MG eCW1 ([facility]) Linagliptin 5 MG Oral Tablet [Tradjenta] Tradjenta 5 MG Trad jenta 5 MG 11/02/2020 12:00:00 AM EST 1.0 {tablet} active Tradjenta 5 MG eCW1 ([facility]) Linagliptin 5 MG Oral Tablet [Tradjenta] Tradjenta 5 MG Trad jenta 5 MG 11/02/2020 12:00:00 AM EST 1.0 {tablet} active Tradjenta 5 MG eCW1 ([facility]) Linagliptin 5 MG Oral Tablet [Tradjenta] Tradjenta 5 MG Trad jenta 5 MG 11/02/2020 12:00:00 AM EST 1.0 {tablet} active Tradjenta 5 MG eCW1 ([facility]) Linagliptin 5 MG Oral Tablet [Tradjenta] Tradjenta 5 MG Trad jenta 5 MG 11/02/2020 12:00:00 AM EST 1.0 {tablet} active Tradjenta 5 MG eCW1 ([facility]) Linagliptin 5 MG Oral Tablet [Tradjenta] Tradjenta 5 MG Trad jenta 5 MG 11/02/2020 12:00:00 AM EST 1.0 {tablet} active Tradjenta 5 MG eCW1 ([facility]) Linagliptin 5 MG Oral Tablet [Tradjenta] Tradjenta 5 MG Trad jenta 5 MG 11/02/2020 12:00:00 AM EST 1.0 {tablet} active Tradjenta 5 MG eCW1 ([facility]) Linagliptin 5 MG Oral Tablet [Tradjenta] Tradjenta 5 MG Trad jenta 5 MG 11/02/2020 12:00:00 AM EST 1.0 {tablet} active Tradjenta 5 MG eCW1 ([facility]) Linagliptin 5 MG Oral Tablet [Tradjenta] TRADJENTA 5 M G TABS TRADJENTA 5 MG TABS 11/02/2020 12:00:00 AM EST 1 {tbl} Oral active Take 1 tablet by mouth daily [facility] Linagliptin 5 MG Oral Tablet [Tradjenta] Tradjenta 5 MG Trad jenta 5 MG 11/02/2020 12:00:00 AM EST 1.0 {tablet} active Tradjenta 5 MG eCW1 ([facility]) ferrous sulfate 325 MG Oral Tablet Ferrous Sulfate (IR ON) 325 (65 Fe) MG TABS Ferrous Sulfate (IRON) 325 (65 Fe) MG TABS 10/10/2020 12:00:00 AM EST 1 {tbl} Oral active Take 1 tablet by ceci th 2 (two) times a day [facility] Aspirin 81 MG Delayed Release Oral Tablet ASPIRIN LOW DOSE 81 MG EC tablet ASPIRIN LOW DOSE 81 MG EC tablet 10/10/2020 12:00:00 AM EST 81 mg Oral active Take 81 mg by mouth daily [facility] Tramadol HCl 100 MG Tramadol HCl 100 MG 09/19/2020 12:00:00 AM EST 1.0 {tablet_as_needed} suspended Tramadol HC l 100 MG eCW1 ([facility]) Tramadol HCl 100 MG Tramadol HCl 100 MG 09/19/2020 12:00:00 AM EST 1.0 {tablet_as_needed} active Tramadol HCl 100 MG eCW1 ([facility]) Tramadol HCl 100 MG Tramadol HCl 100 MG 09/19/2020 12:00:00 AM EST 1.0 {tablet_as_needed} active Tramadol HCl 100 MG eCW1 ([facility]) Tramadol HCl 100 MG Tramadol HCl 100 MG 09/19/2020 12:00:00 AM EST 1.0 {tablet_as_needed} suspended Tramadol HC l 100 MG eCW1 ([facility]) Tramadol HCl 100 MG Tramadol HCl 100 MG 09/19/2020 12:00:00 AM EST 1.0 {tablet_as_needed} active Tramadol HCl 100 MG eCW1 ([facility]) Tramadol HCl 100 MG Tramadol HCl 100 MG 09/19/2020 12:00:00 AM EST 1.0 {tablet_as_needed} suspended Tramadol HC l 100 MG eCW1 ([facility]) Tramadol HCl 100 MG Tramadol HCl 100 MG 09/19/2020 12:00:00 AM EST 1.0 {tablet_as_needed} active Tramadol HCl 100 MG eCW1 ([facility]) Tramadol HCl 100 MG Tramadol HCl 100 MG 09/19/2020 12:00:00 AM EST 1.0 {tablet_as_needed} active Tramadol HCl 100 MG eCW1 ([facility]) Tramadol HCl 100 MG Tramadol HCl 100 MG 09/19/2020 12:00:00 AM EST 1.0 {tablet_as_needed} active Tramadol HCl 100 MG eCW1 ([facility]) Tramadol HCl 100 MG Tramadol HCl 100 MG 09/19/2020 12:00:00 AM EST 1.0 {tablet_as_needed} active Tramadol HCl 100 MG eCW1 ([facility]) Tramadol HCl 100 MG Tramadol HCl 100 MG 09/19/2020 12:00:00 AM EST 1.0 {tablet_as_needed} suspended Tramadol HC l 100 MG eCW1 ([facility]) Tramadol HCl 100 MG Tramadol HCl 100 MG 09/19/2020 12:00:00 AM EST 1.0 {tablet_as_needed} active Tramadol HCl 100 MG eCW1 ([facility]) Tramadol HCl 100 MG Tramadol HCl 100 MG 09/19/2020 12:00:00 AM EST 1.0 {tablet_as_needed} suspended Tramadol HC l 100 MG eCW1 ([facility]) Tramadol HCl 100 MG Tramadol HCl 100 MG 09/19/2020 12:00:00 AM EST 1.0 {tablet_as_needed} active Tramadol HCl 100 MG eCW1 ([facility]) Tramadol HCl 100 MG Tramadol HCl 100 MG 09/19/2020 12:00:00 AM EST 1.0 {tablet_as_needed} active Tramadol HCl 100 MG eCW1 ([facility]) Tramadol HCl 100 MG Tramadol HCl 100 MG 09/19/2020 12:00:00 AM EST 1.0 {tablet_as_needed} active Tramadol HCl 100 MG eCW1 ([facility]) Tramadol HCl 100 MG Tramadol HCl 100 MG 09/19/2020 12:00:00 AM EST 1.0 {tablet_as_needed} active Tramadol HCl 100 MG eCW1 ([facility]) Tramadol HCl 100 MG Tramadol HCl 100 MG 09/19/2020 12:00:00 AM EST 1.0 {tablet_as_needed} active Tramadol HCl 100 MG eCW1 ([facility]) Tramadol HCl 100 MG Tramadol HCl 100 MG 09/19/2020 12:00:00 AM EST 1.0 {tablet_as_needed} active Tramadol HCl 100 MG eCW1 ([facility]) Tramadol HCl 100 MG Tramadol HCl 100 MG 09/19/2020 12:00:00 AM EST 1.0 {tablet_as_needed} active Tramadol HCl 100 MG eCW1 ([facility]) tramadol hydrochloride 50 MG Oral Tablet traMADol (ULT BETH) 50 MG tablet traMADol (ULTRAM) 50 MG tablet 09/19/2020 12:00:00 AM EST active TAKE 2 TABLETS BY MOUTH 4 TIMES DAILY NEEDED FOR 14 DAYS [facility] Escitalopram 5 MG Oral Tablet Escitalopram Oxalate 5 M G Escitalopram Oxalate 5 MG 09/12/2020 12:00:00 AM EST 1.0 {tablet} activ e Escitalopram Oxalate 5 MG eCW1 ([facility]) Escitalopram 5 MG Oral Tablet Escitalopram Oxalate 5 M G Escitalopram Oxalate 5 MG 09/12/2020 12:00:00 AM EST 1.0 {tablet} activ e Escitalopram Oxalate 5 MG eCW1 ([facility]) apixaban 5 MG Oral Tablet [Eliquis] Eliquis 5 MG Eliquis 5 M G 08/28/2020 12:00:00 AM EST active Eliquis 5 MG eCW1 ([facility]) doxycycline hyclate 100 MG Oral Tablet Doxycycline Hyc late 100 MG Doxycycline Hyclate 100 MG 08/28/2020 12:00:00 AM EST 1.0 {tablet} active Doxycycline Hyclate 100 MG eCW1 ([facility]) doxycycline hyclate 100 MG Oral Tablet Doxycycline Hyc late 100 MG Doxycycline Hyclate 100 MG 08/28/2020 12:00:00 AM EST 1.0 {tablet} active Doxycycline Hyclate 100 MG eCW1 ([facility]) doxycycline hyclate 100 MG Oral Tablet Doxycycline Hyc late 100 MG Doxycycline Hyclate 100 MG 08/28/2020 12:00:00 AM EST 1.0 {tablet} active Doxycycline Hyclate 100 MG eCW1 ([facility]) doxycycline hyclate 100 MG Oral Tablet Doxycycline Hyc late 100 MG Doxycycline Hyclate 100 MG 08/28/2020 12:00:00 AM EST 1.0 {tablet} active Doxycycline Hyclate 100 MG eCW1 ([facility]) apixaban 5 MG Oral Tablet [Eliquis] Eliquis 5 MG Eliquis 5 M G 08/28/2020 12:00:00 AM EST active Eliquis 5 MG eCW1 ([facility]) apixaban 5 MG Oral Tablet [Eliquis] Eliquis 5 MG Eliquis 5 M G 08/28/2020 12:00:00 AM EST active Eliquis 5 MG eCW1 ([facility]) apixaban 5 MG Oral Tablet [Eliquis] Eliquis 5 MG Eliquis 5 M G 08/28/2020 12:00:00 AM EST active Eliquis 5 MG eCW1 ([facility]) tramadol hydrochloride 50 MG Oral Tablet Tramadol HCL 07/26/2020 12:00:00 AM EDT active MEDENT ([facility]) Lisinopril 10 MG Oral Tablet Lisinopril 10 MG Oral Tab let (ZESTRIL) Lisinopril 10 MG Oral Tablet (ZESTRIL) 07/07/2020 12:00:00 AM EDT 10 mg Oral active Take 1 tablet by mouth daily [facility] insulin lispro (HumaLOG) injection LOW DOSE EATING INS ULIN patients 1-8 Units [id number] 07/06/2020 06:00:00 PM EDT U Subcutaneous active 1-8 Units, Subcutaneous, Three Times Daily-With Meals, First dose on [place] 07/06/20 at 1800, For 30 days
Nursing MUST open the 'SQ Insulin Dosing Charts' Sidebar Report, or, the Patient Summary or Summary Report within the ED.
[facility] Medication administered onsite heparin (porcine) 5000 UNIT/ML injection 5,000 Units [id number] 07/05/2020 09:00:00 AM EDT 5000 U Subcutaneous active 5,000 Units, Subcutaneous, Three Times Daily Standard, First dose on Fri07/05/20 at 0900, For 30 days [facility] Medication administered onsite Tamsulosin hydrochloride 0.4 MG Oral Capsule tamsulosi n (FLOMAX) capsule 0.4 mg tamsulosin (FLOMAX) capsule 0.4 mg 07/05/2020 09:00:00 AM EDT 0.4 mg Oral active 0.4 mg, Oral, Daily Standard, First dose on Fri07/05/20 at 0900, For 30 days
Swallow whole. Do not crush, chew or open.
[facility] Medication administered onsite gabapentin 100 MG Oral Capsule gabapentin (NEURONTIN) capsule 100 mg gabapentin (NEURONTIN) capsule 100 mg 07/05/2020 09:00:00 AM EDT 100 mg Oral active 100 mg, Oral, Three Times D aily Standard, First dose on Fri07/05/20 at 0900, For 30 days [facility] Medication administered onsite pantoprazole 40 MG Delayed Release Oral Tablet pantoprazole (PROTONIX) EC tablet 40 mg pantoprazole (PROTONIX) EC tablet 40 mg 07/05/2020 07:30:00 AM E DT 40 mg Oral active 40 mg, Ora l, Before Breakfast, First dose on Fri07/05/20 at 0730, For 30 days
Do not crush or chew
[facility] Medication administered onsite sodium chloride (preservative free) 0.9 % flush 3 mL 07/05/2020 01:00:00 AM EDT 3 mL Intravenous active [Ord er 1 Start] Name: Peripheral IV Signed Summary: Routine, CONTINUOUS, Starting Fri07/04/20 at 2128, Until [place] 08/03/20, For 30 days [Order 1 End] [Order 2 Start] Name: sodium chloride (preservative f ree) 0.9 % flush 3 mL Signed Summary: 3 mL, Intravenous, Every 8 hours Standard, First dose on Fri07/05/20 at 0100, For 30 days
Saline Lock. Flush Q8H and after each use to Saline Lock.
[Order 2 End] [Order 3 Start] Name: sodium chloride (preservative free) 0.9 % flush 3 mL Signed Summary: 3 mL, Intravenous, PRN, Line Care, Starting Fri07/04/20 at 2127, For 30 days
Saline Lock. Flush Q8H and after each use to Saline Lock.
[Order 3 End] [Order 4 Start] Name: Saline Lock order Signed Summary: Routine, ONCE, Fri07/04/20 at 2128, For 1 occurrence [Order 4 End] [Order 5 Start] Name: NaCl infusion 0.9 % Signed Summary: at 0.2-10 mL/hr, Intravenous, PRN, For Meds, Starting Fri07/04/20 at 8, For 30 days [Order 5 End] [Order 6 Start] Name: dextrose infusion 5 % Signed Summary: at 0.2-10 mL/hr, Intravenous, PRN, For Meds, Starting Fri07/04/20 at 8, For 30 days [Order 6 End] [facility] Medication administered onsite insulin lispro (HUMALOG) injection LOW DOSE NPO INSULI N patients 1-5 Units [id number] 07/05/2020 12:00:00 AM EDT U Subcutaneous aborted 1-5 Units, Subcutaneous, Every 4 hours, First dose on Fri07/05/20 at 0000, For 30 days
Nursing MUST open the 'SQ Insulin Dosing Charts' Sidebar Report, or, the Patient Summary or Summary Report within the ED.
[facility] Medication administered onsite Calcium Chloride 0.0014 MEQ/ML / Potassi um Chloride 0.004 MEQ/ML / Sodium Chloride 0.103 MEQ/ML / Sodium Lactate 0.028 MEQ/ML Injectable Solution lactated ringers infusion lactated ringers infusion 07/04/2020 09:45:00 PM EDT 100 mL/h Intravenous aborted at 100 m L/hr, Intravenous, Continuous, Starting Fri07/04/20 at 2145, For 30 days [facility] Medication administered onsite Ibuprofen 400 MG Oral Tablet ibuprofen (MOTRIN) tablet 600 mg ibuprofen (MOTRIN) tablet 600 mg 07/04/2020 09:38:31 PM EDT 600 mg Oral acti ve 600 mg, Oral, Every 6 hours PRN, Headaches, Fever, Starting Fri07/04/20 at 2138, For 719 hours
Take with food.
[facility] Medication administered onsite Glucagon 1 MG Injection glucagon (human recombinant) ( GLUCAGEN) injection 1 mg glucagon (human recombinant) (GLUCAGEN) injection 1 mg 07/04/2020 09:29:30 PM EDT 1 mg Intramuscular active 1 mg, Intramuscular, PRN, for glucose <55 without IV access, Starting Fri07/04/20 at 2129, For 30 days [facility] Medication administered onsite dextrose 50 % IV solution 25 mL [id number] 07/04/2020 09:29:30 PM E DT 25 mL Intravenous active 25 mL, Intrav enous, PRN, Other, blood glucose <55, Starting Fri07/04/20 at 2128, For 30 days
Not for midline administration.
[facility] Medication administered onsite Glucose 0.417 MG/MG Oral Gel glucose (GLUTOSE) 40 % or al gel 15 g glucose (GLUTOSE) 40 % oral gel 15 g 07/04/2020 09:29:30 PM EDT 15 g Oral active 15 g, Oral, PRN, Low blood s ugar, for gluose 55-69 mg/dl and able to take PO, Starting Fri07/04/20 at 2128, For 30 days [facility] Medication administered onsite oxyCODONE (ROXICODONE) immediate release tablet 5 mg 07/04/2020 09:23:50 PM EDT 5 mg Oral active [Order 1 Start] Name: oxyCODONE (ROXICODONE) immediate release tablet 5 mg Signed Summary: 5 mg, Oral, Every 4 hours PRN, Moderate Pain (Pain Scale Score 4-6), Starting Fri07/04/20 at 2122, For 3 d ays
Oxycodone immediate release is limited to 10 mg per dose. Higher doses ([facility] only) require Pain Service consultation and approval.
[Order 1 End] [Order 2 Start] Name: oxyCODONE (ROXICODONE) immediate release tablet 10 mg Signed Summary: 10 mg, Oral, Every 4 hours PRN, Severe Pain (Pain Scale Score 7-10), Starting Fri07/04/20 at 2122, For 3 days
Oxycodone immediate release is limited to 10 mg per dose. Higher doses ([facility] only) require Pain Service consultation and approval.
[Order 2 End] [facility] Medication administered onsite Acetaminophen 325 MG Oral Tablet acetaminophen (TYLENO L) tablet 650 mg acetaminophen (TYLENOL) tablet 650 mg 07/04/2020 09:23:36 PM EDT 65 0 mg Oral active 650 mg, Oral, E very 4 hours PRN, Mild Pain (Pain Scale Score 1- 3), Starting Fri07/04/20 at 2122, For 30 days
Maximum daily dose of acetaminophen is 3,000 mg from all sources in 24 hours.
[facility] Medication administered onsite gabapentin 100 MG Oral Capsule Gabapentin 100 MG Oral Capsule (NEURONTIN) Gabapentin 100 MG Oral Capsule (NEURONTIN) 06/20/2020 12:00:00 AM EDT 100 mg Oral active Take 1 capsule by mo uth Three times daily [facility] Aquacel-Ag Hydrofiber 3/4"X18" External [id number] 06/20/20 12:00:00 AM EDT Apply externally active Apply 1 Piece topically every other day [facility] Silver-Carboxymethylcellulose (AQUACEL- HYDROFIBER 3 /4"X18") /4"X18" MIS [id number] 06/20/2020 12:00:00 AM EDT Topical activ e Apply topically [facility] Lisinopril 10 MG Oral Tablet Lisinopril 10 MG Oral Tab let (ZESTRIL) Lisinopril 10 MG Oral Tablet (ZESTRIL) 04/12/2020 12:00:00 AM EDT 10 mg Oral aborted Take 1 tablet by mouth daily [facility] Magnesium Oxide 400 MG Oral Tablet Magne sium Oxide 400 (241.3 Mg) MG Oral Tablet (MAG-OX) Magnesium Oxide 400 (241.3 Mg) MG Oral Tablet (MAG-OX) 04/12/2020 12:00:00 AM EDT 400 mg Oral active Take 1 t ablet by mouth daily [facility] Tamsulosin hydrochloride 0.4 MG Oral [facility] Tamsulosin HCl 0.4 MG Oral Capsule (FLOMAX) Tamsulosin HCl 0.4 MG Oral Capsule (FLOMAX) 04/12/2020 12:00 :00 AM EDT 0.4 mg Oral active Take 1 capsule b y mouth daily [facility] pantoprazole 40 MG Delayed Release Oral Tablet Pantoprazole Sodium 40 MG Oral Tablet Delayed Release (PROTONIX) Pantoprazole Sodium 40 MG Oral Tablet De layed Release (PROTONIX) 04/12/2020 12:00:00 AM EDT 40 mg Oral active Take 1 tablet by mouth every morning before breakfast [facility] Tamsulosin hydrochloride 0.4 MG Oral Capsule tamsulosi n (FLOMAX) 0.4 MG CAPS tamsulosin (FLOMAX) 0.4 MG CAPS 04/12/2020 12:00:00 AM EDT 0.4 mg O ral active Take 0.4 mg by mouth [facility] Magnesium Oxide 400 MG Oral Tablet Magne sium Oxide (MAG-OX) 400 (241.3 Mg) MG tablet Magnesium Oxide (MAG-OX) 400 (241.3 Mg) MG tablet 03/21 12:00:00 AM EDT 400 mg Oral active Take 400 mg by [facility] pantoprazole 40 MG Delayed Release Oral Tablet pantoprazole (PROTONIX) 40 MG tablet pantoprazole (PROTONIX) 40 MG tablet 04/12/2020 12:00:00 AM EDT 40 mg Oral active Take 40 mg by mouth [facility] gabapentin 100 MG Oral Capsule Gabapentin 100 MG Oral Capsule (NEURONTIN) Gabapentin 100 MG Oral Capsule (NEURONTIN) 04/11/2020 12:00:00 AM EDT 100 mg Oral active Take 1 capsule by [facility] Three times daily [facility] Docusate Sodium 100 MG Oral Capsule Docu sate Sodium 100 MG Oral Capsule (COLACE) Docusate Sodium 100 MG Oral Capsule (COLACE) 04/11/2020 12:00:00 AM EDT 100 mg Oral active Take 1 capsule by mouth Two Times Daily for 10 days [facility] Bisacodyl 10 MG Rectal Suppository Bisac odyl 10 MG Rectal Suppository (DULCOLAX) Bisacodyl 10 MG Rectal Suppository (DULCOLAX) 04/11/2020 12:00:0 0 AM EDT [address] 1 ann ppository rectally daily as needed for Constipation for up to 10 days [facility] Oxycodone Hydrochloride 5 MG Oral Tablet oxyCODONE HCl 5 MG Oral Tablet (ROXICODONE) oxyCODONE HCl 5 MG Oral Tablet (ROXICODONE) 04/11/2020 12:00:00 AM EDT 5 mg Oral active Take 1 t ablet by mouth every 4 (four) hours as needed for up to 3 days, Max Daily Dose: 30 mg [facility] sennosides, JAIL 8.6 MG Oral Tablet Senna 8.6 MG Oral T ablet Senna 8.6 MG Oral Tablet 04/11/2020 12:00:00 AM EDT 2 {tbl} Oral active Take 2 tablets by mouth nightly [facility] Rivaroxaban 2.5 MG Oral Tablet (XARELTO) [id number] 04/11/2020 12 :00:00 AM EDT 2.5 mg Oral active Take 1 tablet by mouth T wo Times Daily [facility] sennosides, JAIL 8.6 MG Oral Tablet senna (SENOKOT) 8.6 MG TABS senna (SENOKOT) 8.6 MG TABS 04/11/2020 12:00:00 AM EDT 2 {tbl} Oral activ e Take 2 tablets by mouth [facility] oxyCODONE (ROXICODONE) immediate release tablet 5 mg 04/10/2020 04:38:03 PM EDT 5 mg Oral active [Order 1 Start] Name: oxyCODONE (ROXICODONE) immediate release tablet 5 mg Signed Summary: 5 mg, Oral, Every 4 hours PRN, Moderate Pain (Pain Scale Score 4-6), Starting Fri04/10/20 at 1638, For 72 hours
Inpatient order truncated to 72 hours per [place] law
Oxycodone immediate release is limited to 10 mg per dose. Higher doses ([facility] only) require Pain Service consultation and approval.
[Order 1 End] [Order 2 Start] Name: oxyCODONE (ROXICODONE) immediate release tablet 10 mg Signed Summary: 10 mg, Oral, Every 4 hours PRN, Severe Pain (Pain Scale Score 7-10), Starting Fri04/10/20 at 1638, For 72 hours
Inpatient order truncated to 72 hours per [place] law
Oxycodone immediate release is limited to 10 mg per dose. Higher doses ([facility] only) require Pain Service consultation and approval.
[Order 2 End] [facility] Medication administered onsite insulin lispro (HumaLOG) injection MEDIU M DOSE EATING INSULIN patients 1-16 Units [id number] 04/10/2020 09:45:00 AM EDT Subcutaneous active 1- 16 Units, Subcutaneous, Three Times Daily-With Meals, First dose (after last modification) on Fri04/10/20 at 0945, For 30 days
Nursing MUST open the 'SQ Insulin Dosing Charts' Sidebar Report, or, the Patient Summary or Summary Report within the ED.
[facility] Medication administered onsite Bisacodyl 10 MG Rectal Suppository bisacodyl (DULCOLAX ) suppository 10 mg bisacodyl (DULCOLAX) suppository 10 mg 04/09/2020 10:21:17 AM EDT 10 mg Rectal active 10 mg, Rectal, Daily PRN, Constipation, Starting 04/09/20 at 1021, For 30 days [facility] Medication administered onsite sennosides, JAIL 8.6 MG Oral Tablet senna tablet 2 tablet sen na tablet 2 tablet 04/08/2020 10:00:00 PM EDT 2 {tbl} Oral active 2 tablet, Oral, Nightly, First dose on 04/08/20 at 2200, For 30 days [facility] Medication administered onsite Docusate Sodium 100 MG Oral Capsule docusate sodium (C OLACE) capsule 100 mg docusate sodium (COLACE) capsule 100 mg 04/08/2020 09:00:00 PM EDT 100 mg Oral active 100 mg, Oral, 2 Times Daily, First dose on 04/08/20 at 2100, For 30 days [facility] Medication administered onsite Magnesium Oxide 400 MG Oral Tablet Magnesium Oxide (MA G-OX) tablet 400 mg Magnesium Oxide (MAG-OX) tablet 400 mg 04/07/2020 09:00:00 AM EDT 4 00 mg Oral active 400 mg, Oral, D aily Standard, First dose on Fri04/07/20 at 0900, For 30 days [facility] Medication administered onsite 50 ML Magnesium Sulfate 40 MG/ML Injecti on magnesium sulfate infusion 2 g/50 mL (premix) magnesium sulfate infusion 2 g/50 mL (premix) 04/07/20 07:45:00 AM EDT 16 meq Intravenous completed 16 mEq, Intravenous, Administer over 60 Minutes, Once, Fri04/07/20 at 0745, For 1 dose
each 8 mEq equivalent to 1 gm
[facility] Medication administered onsite Tamsulosin hydrochloride 0.4 MG Oral Capsule tamsulosi n (FLOMAX) capsule 0.4 mg tamsulosin (FLOMAX) capsule 0.4 mg 04/06/2020 09:00:00 AM EDT 0.4 mg Oral active 0.4 mg, Oral, Daily Standard, First dose on [place] 04/06/20 at 0900, For 30 days
Swallow whole. Do not crush, chew or open.
[facility] Medication administered onsite rivaroxaban (XARELTO) tablet 2.5 mg [id number] 04/06/2020 09:00:00 AM EDT 2.5 mg Oral active 2.5 mg, Oral, 2 Times Daily, First dose on [place] 04/06/20 at 0900, For 30 days [facility] Medication administered onsite dextrose 5 % and sodium chloride 0.45 % infusion [id number] 04/05/2020 06:00:00 AM EDT Intravenous aborted at 50 mL/hr, Intravenous, Continuous, Starting Fri04/05/20 at 0600, For 30 days [facility] Medication administered onsite chlorhexidine gluconate 40 MG/ML Medicat ed Liquid Soap chlorhexidine (HIBICLENS) 4 % liquid chlorhexidine (HIBICLENS) 4 % liquid 04/04/2020 09:00:00 PM EDT Topical aborted Topical, 2 Madan es Daily, First dose on Fri04/04/20 at 2100, For 2 doses
To BLE hs on 04/04 and morning of 04/05
[facility] Medication administered onsite Acetaminophen 325 MG Oral Tablet acetaminophen (TYLENO L) tablet 650 mg acetaminophen (TYLENOL) tablet 650 mg 04/04/2020 04:58:47 AM EDT 65 0 mg Oral active 650 mg, Oral, E very 6 hours PRN, pain, Starting Fri04/04/20 at 0458, For 30 days
Maximum daily dose of acetaminophen is 3,000 mg from all sources in 24 hours.
[facility] Medication administered onsite 0.4 ML Enoxaparin sodium 100 MG/ML Prefi lled Syringe enoxaparin sodium (LOVENOX) injection 40 mg enoxaparin sodium (LOVENOX) injection 40 mg 04/03/2020 09:00:00 AM EDT 40 mg Subcutaneous aborted 40 mg, Subcutaneous, Daily Standard, First dose on 04/03/20 at 0900, For 30 days
Non Patients: body weight < 150 kg, CrCl > 30 mL/min. Guidelines for Lovenox:MUST wait 24 hours before starting Enoxaparin if patient has epidural catheter.D/C Enoxaparin 10-12 hours prior to removing epidural catheter.
[facility] Medication administered onsite Lisinopril 10 MG Oral Tablet lisinopril (ZESTRIL) tabl et 10 mg lisinopril (ZESTRIL) tablet 10 mg 04/03/2020 09:00:00 AM EDT 10 mg Oral active 10 mg, Oral, Daily Standard, First dose on Fri04/03/20 at 0900, For 30 days
Check vital signs before administering
[facility] Medication administered onsite pantoprazole (PROTONIX) injection 40 mg 04/03/2020 07:30:0 0 AM EDT 40 mg Intravenous active [Order 1 Star t] Name: pantoprazole (PROTONIX) injection 40 mg Signed Summary: 40 mg, Intravenous, Before Breakfast, First dose on Fri04/03/20 at 0730, For 30 days [Order 1 End] [Order 2 Start] Name: giulia ntoprazole (PROTONIX) EC tablet 40 mg Signed Summary: 40 mg, Oral, Before Breakfast, First dose on Fri04/03/20 at 0730, For 30 days
Do not crush or chew
[Order 2 End] [facility] Medication administered onsite magnesium sulfate in dextrose 5 % infusion (premix) 8 mEq [id number] 04/03/2020 05:30:00 AM EDT 8 meq Intravenous completed 8 mEq, Intravenous, Administer over 60 Minutes, Once, Fri04/03/20 at 0530, For 1 dose
each 8 mEq equivalent to 1 gm
[facility] Medication administered onsite gabapentin 100 MG Oral Capsule gabapentin (NEURONTIN) capsule 100 mg gabapentin (NEURONTIN) capsule 100 mg 04/02/2020 05:00:00 PM EDT 100 mg Oral active 100 mg, Oral, Three Times D aily Standard, First dose on Fri04/02/20 at 1700, For 30 days [facility] Medication administered onsite insulin lispro (HumaLOG) injection LOW DOSE EATING INS ULIN patients 1-8 Units [id number] 04/02/2020 01:00:00 PM EDT Subcutaneous aborted 1-8 Units, Subcutaneous, Three Times Daily-With Meals, First dose on Fri04/02/20 at 1300, For 30 days
Nursing MUST open the 'SQ Insulin Dosing Charts' Sidebar Report, or, the Patient Summary or Summary Report within the ED.
[facility] Medication administered onsite Calcium Chloride 0.0014 MEQ/ML / Potassi um Chloride 0.004 MEQ/ML / Sodium Chloride 0.103 MEQ/ML / Sodium Lactate 0.028 MEQ/ML Injectable Solution lactated ringers infusion lactated ringers infusion 04/02/2020 12:15:00 PM EDT Intravenous aborted at 125 mL/hr, Intravenous, Continuous, Starting [place] 04/02/20 at 1215, For 30 days [facility] Medication administered onsite dextrose 50 % IV solution 25 mL [id number] 04/02/2020 12:06:19 PM E DT 25 mL Intravenous active 25 mL, Intrav enous, PRN, Other, blood glucose <55, Starting [place] 04/02/20 at 1206, For 30 days
Not for midline administration.
[facility] Medication administered onsite Glucose 0.417 MG/MG Oral Gel glucose (GLUTOSE) 40 % or al gel 15 g glucose (GLUTOSE) 40 % oral gel 15 g 04/02/2020 12:06:19 PM EDT 15 g Oral active 15 g, Oral, PRN, Low blood s ugar, for gluose 55-69 mg/dl and able to take PO, Starting [place] 04/02/20 at 1206, For 30 days [facility] Medication administered onsite Glucagon 1 MG Injection glucagon (human recombinant) ( GLUCAGEN) injection 1 mg glucagon (human recombinant) (GLUCAGEN) injection 1 mg 04/02/2020 12:06:19 PM EDT 1 mg Intramuscular active 1 mg, Intramuscular, PRN, for glucose <55 without IV access, Starting [place] 04/02/20 at 1206, For 30 days [facility] Medication administered onsite 1 ML heparin sodium, porcine 1000 UNT/ML Injection heparin (porcine) 1000 units/mL injection 5,400 Units heparin (porcine) 1000 units/mL injectio n 5,400 Units 04/02/2020 09:00:00 AM EDT 5400 U Intravenous comple damian 5,400 Units, Intravenous, Once, [place] 04/02/20 at 0900, For 1 dose
Adult High Dose / With Bolus Protocol.
[facility] Medication administered onsite 500 ML heparin sodium, porcine 50 UNT/ML Injection heparin in NaCl 0.45 % infusion 50 units/mL heparin in NaCl 0.45 % infusion 50 units/mL 04/02/2020 09:00:00 AM EDT 1350 U/h Intravenous aborted 1,350 Units/hr (27 mL/hr), Intravenous, at 27 mL/hr, Continuous, Starting 04/02/20 at 0900, For 30 days
Adult High Dose / With Bolus Protocol.
[facility] Medication administered onsite Lisinopril 10 MG Oral Tablet Lisinopril 10 MG 03/17/2020 12:00:00 A M EDT 1.0 {tablet} active Lisinopril 10 MG eCW1 ( [facility]) Lisinopril 5 MG Oral Tablet Lisinopril 5 MG 03/17/2020 12:00:00 AM EDT 1.0 {tablet} active Lisinopril 5 MG eCW1 ([facility]) Lisinopril 10 MG Oral Tablet Lisinopril 10 MG 03/17/2020 12:00:00 A M EDT 1.0 {tablet} active Lisinopril 10 MG eCW1 ( [facility]) Lisinopril 5 MG Oral Tablet Lisinopril 5 MG 03/17/2020 12:00:00 AM EDT 1.0 {tablet} active Lisinopril 5 MG eCW1 ([facility]) Lisinopril 5 MG Oral Tablet Lisinopril 5 MG 03/17/2020 12:00:00 AM EDT active 1 tablet eCW1 ([facility]) Lisinopril 5 MG Oral Tablet Lisinopril 5 MG 03/17/2020 12:00:00 AM EDT 1.0 {tablet} active Lisinopril 5 MG eCW1 ([facility]) Lisinopril 10 MG Oral Tablet Lisinopril 10 MG 03/17/2020 12:00:00 A M EDT 1.0 {tablet} active Lisinopril 10 MG eCW1 ( [facility]) Lisinopril 10 MG Oral Tablet Lisinopril 10 MG 03/17/2020 12:00:00 A M EDT 1.0 {tablet} active Lisinopril 10 MG eCW1 ( [facility]) Lisinopril 10 MG Oral Tablet Lisinopril 10 MG 03/17/2020 12:00:00 A M EDT 1.0 {tablet} active Lisinopril 10 MG eCW1 ( [facility]) Lisinopril 10 MG Oral Tablet Lisinopril 10 MG 03/17/2020 12:00:00 A M EDT 1.0 {tablet} active Lisinopril 10 MG eCW1 ( [facility]) Lisinopril 10 MG Oral Tablet Lisinopril 10 MG 03/17/2020 12:00:00 A M EDT 1.0 {tablet} active Lisinopril 10 MG eCW1 ( [facility]) Lisinopril 10 MG Oral Tablet Lisinopril 10 MG 03/17/2020 12:00:00 A M EDT 1.0 {tablet} active Lisinopril 10 MG eCW1 ( [facility]) Lisinopril 10 MG Oral Tablet Lisinopril 10 MG 03/17/2020 12:00:00 A M EDT 1.0 {tablet} active Lisinopril 10 MG eCW1 ( [facility]) Lisinopril 10 MG Oral Tablet Lisinopril 10 MG 03/17/2020 12:00:00 A M EDT 1.0 {tablet} active Lisinopril 10 MG eCW1 ( [facility]) Lisinopril 10 MG Oral Tablet Lisinopril 10 MG 03/17/2020 12:00:00 A M EDT 1.0 {tablet} active Lisinopril 10 MG eCW1 ( [facility]) Lisinopril 10 MG Oral Tablet Lisinopril 10 MG 03/17/2020 12:00:00 A M EDT 1.0 {tablet} active Lisinopril 10 MG eCW1 ( [facility]) Lisinopril 10 MG Oral Tablet Lisinopril 10 MG 03/17/2020 12:00:00 A M EDT 1.0 {tablet} active Lisinopril 10 MG eCW1 ( [facility]) Lisinopril 10 MG Oral Tablet Lisinopril 10 MG 03/17/2020 12:00:00 A M EDT 1.0 {tablet} active Lisinopril 10 MG eCW1 ( [facility]) Lisinopril 10 MG Oral Tablet Lisinopril 10 MG 03/17/2020 12:00:00 A M EDT 1.0 {tablet} active Lisinopril 10 MG eCW1 ( [facility]) Lisinopril 10 MG Oral Tablet Lisinopril 10 MG 03/17/2020 12:00:00 A M EDT 1.0 {tablet} active Lisinopril 10 MG eCW1 ( [facility]) Lisinopril 10 MG Oral Tablet Lisinopril 10 MG 03/17/2020 12:00:00 A M EDT 1.0 {tablet} active Lisinopril 10 MG eCW1 ( [facility]) Lisinopril 10 MG Oral Tablet Lisinopril 10 MG 03/17/2020 12:00:00 A M EDT 1.0 {tablet} active Lisinopril 10 MG eCW1 ( [facility]) Lisinopril 5 MG Oral Tablet Lisinopril 5 MG 03/17/2020 12:00:00 AM EDT 1.0 {tablet} active Lisinopril 5 MG eCW1 ([facility]) Lisinopril 10 MG Oral Tablet Lisinopril 10 MG 03/17/2020 12:00:00 A M EDT 1.0 {tablet} active Lisinopril 10 MG eCW1 ( [facility]) Lisinopril 10 MG Oral Tablet Lisinopril 10 MG 03/17/2020 12:00:00 A M EDT 1.0 {tablet} active Lisinopril 10 MG eCW1 ( [facility]) Lisinopril 10 MG Oral Tablet Lisinopril 10 MG 03/17/2020 12:00:00 A M EDT 1.0 {tablet} active Lisinopril 10 MG eCW1 ( [facility]) Lisinopril 10 MG Oral Tablet Lisinopril 10 MG 03/17/2020 12:00:00 A M EDT 1.0 {tablet} active Lisinopril 10 MG eCW1 ( [facility]) Lisinopril 10 MG Oral Tablet Lisinopril 10 MG 03/17/2020 12:00:00 A M EDT 1.0 {tablet} active Lisinopril 10 MG eCW1 ( [facility]) Lisinopril 10 MG Oral Tablet Lisinopril 10 MG 03/17/2020 12:00:00 A M EDT 1.0 {tablet} active Lisinopril 10 MG eCW1 ( [facility]) Lisinopril 10 MG Oral Tablet Lisinopril 10 MG 03/17/2020 12:00:00 A M EDT 1.0 {tablet} active Lisinopril 10 MG eCW1 ( [facility]) Lisinopril 5 MG Oral Tablet Lisinopril 5 MG 03/17/2020 12:00:00 AM EDT 1.0 {tablet} active Lisinopril 5 MG eCW1 ([facility]) Lisinopril 5 MG Oral Tablet Lisinopril 5 MG 03/17/2020 12:00:00 AM EDT 1.0 {tablet} active Lisinopril 5 MG eCW1 ([facility]) Lisinopril 5 MG Oral Tablet Lisinopril 5 MG 03/17/2020 12:00:00 AM EDT 1.0 {tablet} active Lisinopril 5 MG eCW1 ([facility]) Lisinopril 10 MG Oral Tablet Lisinopril 10 MG 03/17/2020 12:00:00 A M EDT 1.0 {tablet} active Lisinopril 10 MG eCW1 ( [facility]) Lisinopril 10 MG Oral Tablet Lisinopril 10 MG 03/17/2020 12:00:00 A M EDT 1.0 {tablet} active Lisinopril 10 MG eCW1 ( [facility]) Lisinopril 5 MG Oral Tablet Lisinopril 5 MG 03/17/2020 12:00:00 AM EDT 1.0 {tablet} active Lisinopril 5 MG eCW1 ([facility]) Lisinopril 5 MG Oral Tablet Lisinopril 5 MG 03/17/2020 12:00:00 AM EDT 1.0 {tablet} active Lisinopril 5 MG eCW1 ([facility]) Lisinopril 10 MG Oral Tablet Lisinopril 10 MG 03/17/2020 12:00:00 A M EDT 1.0 {tablet} active Lisinopril 10 MG eCW1 ( [facility]) Lisinopril 10 MG Oral Tablet Lisinopril 10 MG 03/17/2020 12:00:00 A M EDT 1.0 {tablet} active Lisinopril 10 MG eCW1 ( [facility]) Lisinopril 10 MG Oral Tablet Lisinopril 10 MG 03/17/2020 12:00:00 A M EDT 1.0 {tablet} active Lisinopril 10 MG eCW1 ( [facility]) Lisinopril 10 MG Oral Tablet Lisinopril 10 MG 03/17/2020 12:00:00 A M EDT 1.0 {tablet} active Lisinopril 10 MG eCW1 ( [facility]) Lisinopril 5 MG Oral Tablet Lisinopril 5 MG 03/17/2020 12:00:00 AM EDT 1.0 {tablet} active Lisinopril 5 MG eCW1 ([facility]) Lisinopril 10 MG Oral Tablet Lisinopril 10 MG 03/17/2020 12:00:00 A M EDT 1.0 {tablet} active Lisinopril 10 MG eCW1 ( [facility]) Lisinopril 10 MG Oral Tablet Lisinopril 10 MG 03/17/2020 12:00:00 A M EDT 1.0 {tablet} active Lisinopril 10 MG eCW1 ( [facility]) Lisinopril 5 MG Oral Tablet Lisinopril 5 MG 03/17/2020 12:00:00 AM EDT 1.0 {tablet} active Lisinopril 5 MG eCW1 ([facility]) Lisinopril 10 MG Oral Tablet Lisinopril 10 MG 03/17/2020 12:00:00 A M EDT 1.0 {tablet} active Lisinopril 10 MG eCW1 ( [facility]) Sulfamethoxazole 800 MG / Trimethoprim 1 60 MG Oral Tablet Sulfamethoxazole- Trimethoprim 800-160 MG Sulfamethoxazole-Trimethoprim 800-160 MG 03/16/2020 12:00:00 AM EDT 1.0 {tablet} suspended Sulfamethoxazole-Trimethoprim 800-160 MG eCW1 ([facility]) Sulfamethoxazole 800 MG / Trimethoprim 1 60 MG Oral Tablet Sulfamethoxazole- Trimethoprim 800-160 MG Sulfamethoxazole-Trimethoprim 800-160 MG 03/16/2020 12:00:00 AM EDT 1.0 {tablet} suspended Sulfamethoxazole-Trimethoprim 800-160 MG eCW1 ([facility]) Sulfamethoxazole 800 MG / Trimethoprim 1 60 MG Oral Tablet Sulfamethoxazole- Trimethoprim 800-160 MG Sulfamethoxazole-Trimethoprim 800-160 MG 03/16/2020 12:00:00 AM EDT 1.0 {tablet} active Sulfamethoxazole-Trimethoprim 800-160 MG eCW1 ([facility]) Sulfamethoxazole 800 MG / Trimethoprim 1 60 MG Oral Tablet Sulfamethoxazole- Trimethoprim 800-160 MG Sulfamethoxazole-Trimethoprim 800-160 MG 03/16/2020 12:00:00 AM EDT 1.0 {tablet} suspended Sulfamethoxazole-Trimethoprim 800-160 MG eCW1 ([facility]) Sulfamethoxazole 800 MG / Trimethoprim 1 60 MG Oral Tablet Sulfamethoxazole- Trimethoprim 800-160 MG Sulfamethoxazole-Trimethoprim 800-160 MG 03/16/2020 12:00:00 AM EDT 1.0 {tablet} active Sulfamethoxazole-Trimethoprim 800-160 MG eCW1 ([facility]) Sulfamethoxazole 800 MG / Trimethoprim 1 60 MG Oral Tablet Sulfamethoxazole- Trimethoprim 800-160 MG Sulfamethoxazole-Trimethoprim 800-160 MG 03/16/2020 12:00:00 AM EDT 1.0 {tablet} active Sulfamethoxazole-Trimethoprim 800-160 MG eCW1 ([facility]) Sulfamethoxazole 800 MG / Trimethoprim 1 60 MG Oral Tablet Sulfamethoxazole- Trimethoprim 800-160 MG Sulfamethoxazole-Trimethoprim 800-160 MG 03/16/2020 12:00:00 AM EDT 1.0 {tablet} suspended Sulfamethoxazole-Trimethoprim 800-160 MG eCW1 ([facility]) Sulfamethoxazole 800 MG / Trimethoprim 1 60 MG Oral Tablet Sulfamethoxazole- Trimethoprim 800-160 MG Sulfamethoxazole-Trimethoprim 800-160 MG 03/16/2020 12:00:00 AM EDT 1.0 {tablet} active Sulfamethoxazole-Trimethoprim 800-160 MG eCW1 ([facility]) Sulfamethoxazole 800 MG / Trimethoprim 1 60 MG Oral Tablet Sulfamethoxazole- Trimethoprim 800-160 MG Sulfamethoxazole-Trimethoprim 800-160 MG 03/16/2020 12:00:00 AM EDT 1.0 {tablet} active Sulfamethoxazole-Trimethoprim 800-160 MG eCW1 ([facility]) Sulfamethoxazole 800 MG / Trimethoprim 1 60 MG Oral Tablet Sulfamethoxazole- Trimethoprim 800-160 MG Sulfamethoxazole-Trimethoprim 800-160 MG 03/16/2020 12:00:00 AM EDT 1.0 {tablet} active Sulfamethoxazole-Trimethoprim 800-160 MG eCW1 ([facility]) Sulfamethoxazole 800 MG / Trimethoprim 1 60 MG Oral Tablet Sulfamethoxazole- Trimethoprim 800-160 MG Sulfamethoxazole-Trimethoprim 800-160 MG 03/16/2020 12:00:00 AM EDT 1.0 {tablet} active Sulfamethoxazole-Trimethoprim 800-160 MG eCW1 ([facility]) Sulfamethoxazole 800 MG / Trimethoprim 1 60 MG Oral Tablet Sulfamethoxazole- Trimethoprim 800-160 MG Sulfamethoxazole-Trimethoprim 800-160 MG 03/16/2020 12:00:00 AM EDT 1.0 {tablet} active Sulfamethoxazole-Trimethoprim 800-160 MG eCW1 ([facility]) Sulfamethoxazole 800 MG / Trimethoprim 1 60 MG Oral Tablet Sulfamethoxazole- Trimethoprim 800-160 MG Sulfamethoxazole-Trimethoprim 800-160 MG 03/16/2020 12:00:00 AM EDT 1.0 {tablet} suspended Sulfamethoxazole-Trimethoprim 800-160 MG eCW1 ([facility]) Sulfamethoxazole 800 MG / Trimethoprim 1 60 MG Oral Tablet Sulfamethoxazole- Trimethoprim 800-160 MG Sulfamethoxazole-Trimethoprim 800-160 MG 03/16/2020 12:00:00 AM EDT 1.0 {tablet} active Sulfamethoxazole-Trimethoprim 800-160 MG eCW1 ([facility]) Sulfamethoxazole 800 MG / Trimethoprim 1 60 MG Oral Tablet Sulfamethoxazole- Trimethoprim 800-160 MG Sulfamethoxazole-Trimethoprim 800-160 MG 03/16/2020 12:00:00 AM EDT 1.0 {tablet} active Sulfamethoxazole-Trimethoprim 800-160 MG eCW1 ([facility]) Sulfamethoxazole 800 MG / Trimethoprim 1 60 MG Oral Tablet Sulfamethoxazole- Trimethoprim 800-160 MG Sulfamethoxazole-Trimethoprim 800-160 MG 03/16/2020 12:00:00 AM EDT 1.0 {tablet} suspended Sulfamethoxazole-Trimethoprim 800-160 MG eCW1 ([facility]) Sulfamethoxazole 800 MG / Trimethoprim 1 60 MG Oral Tablet Sulfamethoxazole- Trimethoprim 800-160 MG Sulfamethoxazole-Trimethoprim 800-160 MG 03/16/2020 12:00:00 AM EDT 1.0 {tablet} suspended Sulfamethoxazole-Trimethoprim 800-160 MG eCW1 ([facility]) Sulfamethoxazole 800 MG / Trimethoprim 1 60 MG Oral Tablet Sulfamethoxazole- Trimethoprim 800-160 MG Sulfamethoxazole-Trimethoprim 800-160 MG 03/16/2020 12:00:00 AM EDT 1.0 {tablet} suspended Sulfamethoxazole-Trimethoprim 800-160 MG eCW1 ([facility]) Sulfamethoxazole 800 MG / Trimethoprim 1 60 MG Oral Tablet Sulfamethoxazole- Trimethoprim 800-160 MG Sulfamethoxazole-Trimethoprim 800-160 MG 03/16/2020 12:00:00 AM EDT 1.0 {tablet} active Sulfamethoxazole-Trimethoprim 800-160 MG eCW1 ([facility]) gabapentin 300 MG Oral Capsule Gabapentin 300 MG Gabapentin 300 MG 02/29/2020 12:00:00 AM EDT active 1 capsul e eCW1 ([facility]) gabapentin 100 MG Oral Capsule Gabapentin 100 MG Gabapentin 100 MG 02/29/2020 12:00:00 AM EDT 1.0 {capsule} active G abapentin 100 MG eCW1 ([facility]) gabapentin 300 MG Oral Capsule Gabapentin 300 MG Gabapentin 300 MG 02/29/2020 12:00:00 AM EDT 1.0 {capsule} active G abapentin 300 MG eCW1 ([facility]) gabapentin 100 MG Oral Capsule Gabapentin 100 MG Gabapentin 100 MG 02/29/2020 12:00:00 AM EDT 1.0 {capsule} active G abapentin 100 MG eCW1 ([facility]) gabapentin 300 MG Oral Capsule Gabapentin 300 MG Gabapentin 300 MG 02/29/2020 12:00:00 AM EDT 1.0 {capsule} active G abapentin 300 MG eCW1 ([facility]) gabapentin 300 MG Oral Capsule Gabapentin 300 MG Gabapentin 300 MG 02/29/2020 12:00:00 AM EDT 1.0 {capsule} active G abapentin 300 MG eCW1 ([facility]) gabapentin 300 MG Oral Capsule Gabapentin 300 MG Gabapentin 300 MG 02/29/2020 12:00:00 AM EDT 1.0 {capsule} active G abapentin 300 MG eCW1 ([facility]) gabapentin 100 MG Oral Capsule Gabapentin 100 MG Gabapentin 100 MG 02/29/2020 12:00:00 AM EDT 1.0 {capsule} active G abapentin 100 MG eCW1 ([facility]) gabapentin 300 MG Oral Capsule Gabapentin 300 MG Gabapentin 300 MG 02/29/2020 12:00:00 AM EDT 1.0 {capsule} active G abapentin 300 MG eCW1 ([facility]) gabapentin 100 MG Oral Capsule Gabapentin 100 MG Gabapentin 100 MG 02/29/2020 12:00:00 AM EDT 1.0 {capsule} active G abapentin 100 MG eCW1 ([facility]) gabapentin 300 MG Oral Capsule Gabapentin 300 MG Gabapentin 300 MG 02/29/2020 12:00:00 AM EDT 1.0 {capsule} active G abapentin 300 MG eCW1 ([facility]) gabapentin 100 MG Oral Capsule Gabapentin 100 MG Gabapentin 100 MG 02/29/2020 12:00:00 AM EDT 1.0 {capsule} active G abapentin 100 MG eCW1 ([facility]) gabapentin 300 MG Oral Capsule Gabapentin 300 MG Gabapentin 300 MG 02/29/2020 12:00:00 AM EDT 1.0 {capsule} active G abapentin 300 MG eCW1 ([facility]) gabapentin 100 MG Oral Capsule Gabapentin 100 MG Gabapentin 100 MG 02/29/2020 12:00:00 AM EDT 1.0 {capsule} active G abapentin 100 MG eCW1 ([facility]) gabapentin 300 MG Oral Capsule Gabapentin 300 MG Gabapentin 300 MG 02/29/2020 12:00:00 AM EDT active 1 capsul e eCW1 ([facility]) gabapentin 300 MG Oral Capsule Gabapentin 300 MG Gabapentin 300 MG 02/29/2020 12:00:00 AM EDT 1.0 {capsule} active G abapentin 300 MG eCW1 ([facility]) gabapentin 300 MG Oral Capsule Gabapentin 300 MG Gabapentin 300 MG 02/29/2020 12:00:00 AM EDT active 1 capsul e eCW1 ([facility]) gabapentin 100 MG Oral Capsule Gabapentin 100 MG Gabapentin 100 MG 02/29/2020 12:00:00 AM EDT 1.0 {capsule} active G abapentin 100 MG eCW1 ([facility]) gabapentin 100 MG Oral Capsule Gabapentin 100 MG Gabapentin 100 MG 02/29/2020 12:00:00 AM EDT 1.0 {capsule} active G abapentin 100 MG eCW1 ([facility]) gabapentin 300 MG Oral Capsule Gabapentin 300 MG Gabapentin 300 MG 02/29/2020 12:00:00 AM EDT 1.0 {capsule} active G abapentin 300 MG eCW1 ([facility]) gabapentin 100 MG Oral Capsule Gabapentin 100 MG Gabapentin 100 MG 02/29/2020 12:00:00 AM EDT 1.0 {capsule} active G abapentin 100 MG eCW1 ([facility]) gabapentin 100 MG Oral Capsule Gabapentin 100 MG Gabapentin 100 MG 02/29/2020 12:00:00 AM EDT 1.0 {capsule} active G abapentin 100 MG eCW1 ([facility]) gabapentin 100 MG Oral Capsule Gabapentin 100 MG Gabapentin 100 MG 02/29/2020 12:00:00 AM EDT 1.0 {capsule} active G abapentin 100 MG eCW1 ([facility]) gabapentin 100 MG Oral Capsule Gabapentin 100 MG Gabapentin 100 MG 02/29/2020 12:00:00 AM EDT 1.0 {capsule} active G abapentin 100 MG eCW1 ([facility]) gabapentin 300 MG Oral Capsule Gabapentin 300 MG Gabapentin 300 MG 02/29/2020 12:00:00 AM EDT 1.0 {capsule} active G abapentin 300 MG eCW1 ([facility]) gabapentin 300 MG Oral Capsule Gabapentin 300 MG Gabapentin 300 MG 02/29/2020 12:00:00 AM EDT 1.0 {capsule} active G abapentin 300 MG eCW1 ([facility]) Cephalexin 500 MG Oral Capsule Cephalexin 500 MG 02/22/2020 12:00:00 AM EDT active 1 capsule eCW1 ([facility]) Metformin hydrochloride 500 MG Oral Tablet metFORMIN ( GLUCOPHAGE) 500 MG tablet metFORMIN (GLUCOPHAGE) 500 MG tablet 10/22/2019 12:00:00 AM EST aborted TAKE 2 TABLETS BY MOUTH TWICE DA LUCIAN WITH A MEAL FOR 30 DAYS [facility] Glipizide 5 MG Oral Tablet glipiZIDE (GLUCOTROL) 5 MG tablet glipiZIDE (GLUCOTROL) 5 MG tablet 09/21/2019 12:00:00 AM EST aborted [facility] glucose blood (ACCU-CHEK VAHE) test strip [id number] 03/01/2015 12:0 0:00 AM EDT aborted ACCU-CHEK VAHE IN V ITRO STRIP [facility] Lisinopril 5 MG Oral Tablet lisinopril (PRINIVIL,ZESTR IL) 5 MG tablet lisinopril (PRINIVIL,ZESTRIL) 5 MG tablet 5 mg Oral aborted Take 5 mg by mouth daily [facility] gabapentin 300 MG Oral Capsule gabapentin (NEURONTIN) 300 MG capsule gabapentin (NEURONTIN) 300 MG capsule 300 mg Oral aborted Take 300 mg by mouth Two Times Daily [facility] Insurance Providers Payer name Policy type / Coverage type Policy ID Covered democrat ID Covered democrat's relationship to castellanos Policy Castellanos Plan Information R [facility] [id number] NY2 [id number] MEDICARE [id number] SP [id number] MEDICARE PART A -O/P [id number] 18 [id number] R [facility] [id number] [facility] U [id number] Spouse [id number] MEDICARE A [id number] Self [id number] [facility] [id number] MEDICARE [id number] [facility] [id number] [facility] [id number] MEDICARE [id number] Tasia [id number] [id number] R O [id number] S [id number] MEDICARE C [id number] S [id number] UMR [id number] SPO [id number] MEDICARE - [place] [id number] S [id number] [employer] [id number] S [id number] MEDICARE [id number] SP [id number] A ANSI-Commercial [id number] ANSI-Commercial [id number] ANSI-Medicare Part B [id number] ANSI-Commercial [id number] ANSI-Commercial [id number] ANSI-Medicare Part B [id number] ANSI-Medicare Part B [id number] ANSI-Commercial [id number] ANSI-Commercial [id number] ANSI-Medicare Part B [id number] ANSI-Commercial [id number] ANSI-Commercial [id number] ANSI-Commercial [id number] ANSI-Medicare Part B [id number] ANSI-Commercial [id number] ANSI-Commercial [id number] ANSI-Commercial [id number] ANSI-Medicare Part B [id number] Medicare Dme Medigap Part B [id number] Self [id number] Medicare Medicare Primary [id number] Self [id number] Umr Commercial [id number] Family Dependent [id number] Umr (pr) Medigap Part B [id number] Self [id number] Medicare Dme Supplies Medigap Part B [id number] Self [id number] [place] [id number] Self [id number] [place] (pr) Medigap Part B [id number] Family Dependent [id number] Umr (pr) Medigap Part B [id number] Self [id number] Medicare Dme Supplies Medigap Part B [id number] Self [id number] [place] Primary [id number] Self [id number] ANSI-Commercial [id number] ANSI-Commercial [id number] ANSI-Medicare Part B [id number] Umr (pr) Medigap Part B [id number] Self [id number] Medicare [place] [id number] Self [id number] ANSI-Commercial [id number] ANSI-Commercial [id number]-op7p-[id number]-x922-8lk4-ab4q-[id number] ANSI-Medicare Part B [id number] ANSI-Commercial t0k68xjx-a6th-9017-u80a-[id number] i2c54uck-f6su-1851-e65u-[id number] ANSI-Medicare Part B [id number] ANSI-Commercial erylne7y-9l13-1jp2-4461-94551mh1290p epyyid9r-[id number] Medicare [facility] Part B [id number] Self [id number] Medicare Medicare Primary [id number] Self [id number] ANSI-Medicare Part B [id number] ANSI-Commercial [id number]-c169-62f2-nt66-64mtj162xng1 [id number]-c688-19o2-js87-01tsv697ofz6 ANSI-Commercial l35m9954-05xg-707o-768m-[id number] [id number]-365u-687u-[id number] [place] [id number] Self [id number] ANSI-Medicare Part B [id number] ANSI-Commercial az8f8sw[id number] [id number] ANSI-Commercial b32420s7-34qw-1s62-h992-ou331s31ukk8 [id number]-5p67-d133-ri241e56zlz2 ANSI-Medicare Part B [id number] ANSI-Commercial [id number]-o310-2788-i461-5842o181g4pd 90052a6q-x243-5059-[id number] ANSI-Commercial rw16enh7-8257-1hru-o7ay-7441l42e57sr af52lle8-7905-0awu-z6qq-7432t50n49ro ANSI-Medicare Part B [id number] ANSI-Commercial k6q8to4q-9v6k-8y6c-[id number] e8s8hh1m-5s2s-9p7n-cu23-9435vz708996 ANSI-Commercial n60px9m4-h606-031y-854f-00t6e27f4549 m83tt1d5-t687-545h-137w-69t7z99s6490 ANSI-Commercial 786fr4dh-8531-54o1-2m0g-m795lt03hj92 620xg6qn-5927-97c0-6v1u-z065az32gf51 ANSI-Commercial tt113j7d-62hw-23qx-939a-14gk7wwc8nn9 oi563u2v-93pi-80ha-638c-38qh5gps6vo4 ANSI-Medicare Part B [id number] ANSI-Medicare Part B [id number] ANSI-Commercial [id number] ANSI-Commercial [id number] [facility] [place] [id number] [facility] [id number] MEDICARE [id number] A ANSI-Medicare Part B [id number] ANSI-Commercial [id number] ANSI-Commercial [id number] ANSI-Commercial [id number] ANSI-Commercial [id number] ANSI-Medicare Part B [id number] ANSI-Commercial [id number] ANSI-Medicare Part B [id number] ANSI-Commercial [id number] Medicare Medicare Primary [id number] Self 7 [id number] ANSI-Medicare Part B [id number] ANSI-Commercial [id number] ANSI-Commercial [id number] ANSI-Commercial [id number] ANSI-Medicare Part B [id number] ANSI-Commercial [id number] ANSI-Commercial [id number] ANSI-Medicare Part B [id number] ANSI-Commercial [id number] ANSI-Medicare Part B [id number] ANSI-Commercial [id number] ANSI-Commercial [id number] Medicare Medicare Primary [id number] Self [address] [id number] [facility] [id number] [facility] [id number] ANSI-Medicare Part B [id number] ANSI-Commercial [id number] ANSI-Commercial [id number] ANSI-Commercial [id number] ANSI-Medicare Part B [id number] ANSI-Commercial [id number] ANSI-Medicare Part B [id number] ANSI-Commercial [id number] ANSI-Medicare Part B [id number] [employer] [id number] WI2 [id number] [employer] PPO O [id number] S [id number] MEDICARE C [id number] S [id number] A [employer] [id number] WI2 [id number] MEDICARE [id number] SP [id number] A [employer] [id number] WI2 [id number] [employer] [id number] WI2 [id number] MEDICARE [id number] SP [id number] A [employer] Medigap Part B Family Dependent Medicare [facility]/NGS Medicare Primary Self OTHER1 UNAVAILABLE UNAVAILA BLE [employer] [id number] SP [id number] [employer] [id number] WI2 [id number] [facility] P [id number] S [id number] [employer] PPO S [id number] S [id number] [employer] [id number] WI2 [id number] A Problems, Conditions, and Diagnoses Code Display Name Description Problem Type Effective Dates Data Source(s) 488829064 Amputated right lower limb above knee Am putated right lower limb above knee Problem 11/14/2020 12:00:00 AM EST [facility] ([facility] K29.70 Gastroduodenitis Gastritis, presence of bleeding unspecified, unspecified chronicity, unspecified gastritis type Problem 11/09/2020 12:00:00 A M EST eCW1 ([facility]) I48.11 [id number] Longstanding persistent atrial fibrillati on Problem 11/09/2020 12:00:00 AM EST eCW1 ([facility]) N40.0 157512129 Benign prostatic hyp erplasia without lower urinary tract symptoms Problem 11/09/2020 12:00:00 AM EST eCW1 ([facility]) G54.6 [id number] Phantom limb pain Problem 11/09/2020 12:0 0:00 AM EST eCW1 ([facility]) S78.111A [id number] 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 Problem 10/19/2020 12:00:00 AM EST eCW1 ([facility]) E11.65 [id number] Poorly controlled diabetes mellitus Probl em 10/19/2020 12:00:00 AM EST eCW1 ([facility]) F43.20 [id number] Adjustment disorder, unspecified type Pro blem 09/12/2020 12:00:00 AM EST eCW1 ([facility]) Z95.828 [id number] S/P femoral-popliteal bypass surgery Prob ernesto 09/08/2020 12:00:00 AM EST eCW1 ([facility]) L03.90 [id number] Cellulitis, unspecified cellulitis site P roblem 08/28/2020 12:00:00 AM EST eCW1 ([facility]) L03.115 685894047 Cellulitis of right lower extremity Probl em 08/28/2020 12:00:00 AM EST eCW1 ([facility]) E11.42 [id number] Type 2 diabetes santos itus with diabetic polyneuropathy, without long-term current use of insulin Problem 08/28/2020 12:00:00 AM EST eCW1 ([facility]) L97.512 365689434 Non-pressure chronic ulcer of other part of right foot with fat layer exposed Problem 08/28/2020 12:00:00 AM EST eCW1 ([facility]) I70.238 757062292 Atherosclerosis of n ative arteries of right leg with ulceration of other part of lower leg Problem 08/28/2020 12:00:00 AM EST eCW1 ([facility]) I87.311 [id number] Chronic venous hyper tension (idiopathic) with ulcer of right lower extremity Problem 08/28/2020 12:00:00 AM EST eCW1 ([facility]) I70.235 749902199 Atherosclerosis of n ative arteries of right leg with ulceration of other part of foot Problem 08/28/2020 12:00:00 AM EST eCW1 ([facility]) L97.514 238223242 Non-pressure chronic ulcer of other part of right foot with necrosis of bone Problem 07/18/2020 12:00:00 AM EDT eCW1 ([facility]) E11.621 [id number] Type 2 diabetes mellitus with foot ulcer Problem 07/18/2020 12:00:00 AM EDT eCW1 ([facility]) L03.032 [id number] Paronychia of fifth toe of left foot Problem 03/23/2020 12:00:00 AM EDT eCW1 ([facility]) I10 Essential hypertension Essential hypertension [id number] 10/28/2019 12:00:00 AM [facility] I25.10 Coronary artery disease Coronary artery disease [id number] 01 10/28/2019 12:00:00 AM [facility] E11.51 Type 2 diabetes mellitus wit h diabetic peripheral angiopathy without gangrene Type 2 diabetes mellitus with diabetic p Diagnosis 11/17/2020 02:04:02 PM [facility] I73.9 Peripheral vascular disease, unspecified Peripheral vascular disease, unspecified Diagnosis 11/17/2020 02:04:02 PM [facility] E78.00 Pure hypercholesterolemia, unspecified P ure hypercholesterolemia, unspecified Diagnosis 11/17/2020 02:04:02 PM [facility] I25.810 Atherosclerosis of coronary artery bypass graft(s) without angina pectoris Atherosclerosis of coronary artery bypas Diagnosis 11/17/2020 02:04:02 PM [facility] I48.92 Unspecified atrial flutter Unspecified atrial flutter Diagnosis 11/17/2020 02:04:02 PM [facility] I70.201 Unspecified atherosclerosis of kiana arteries of extremities, right leg Unspecified atherosclerosis of kiana arteries of extr emities, right leg Diagnosis 07/07/2020 12:29:03 PM [facility] Complete occlusion of right lower extrem ity. Complete occlusion of right lower extremity. Diagnosis 07/04/2020 08:22:00 PM [facility] Z48.02 Encounter for removal of sutures ENCOUNTER FOR R EMOVAL OF SUTURES Diagnosis 05/02/2020 11:00:00 AM [facility] I70.209 Unspecified atherosclerosis of kiana arteries of extremities, unspecified extremity UNSP ATHSCL UNALAKLEET ARTERIES OF EXTREMITI ES, UNSP EXTREMITY Diagnosis 05/02/2020 11:00:00 AM [facility] I70.209 Unspecified atherosclerosis of kiana arteries of extremities, unspecified extremity Unspecified atherosclerosis of kiana ar teries of extremities, unspecified extremity Diagnosis 04/02/2020 09:13:15 AM ED [facility] I10 Essential (primary) hypertension Essential (primary) h ypertension Diagnosis 04/02/2020 08:19:33 AM [facility] E11.9 Type 2 diabetes mellitus without complic ations Type 2 diabetes mellitus without complications Diagnosis 04/02/2020 08:19:33 AM [facility] I73.9 Peripheral vascular disease, unspecified Peripheral vascular disease, unspecified Diagnosis 04/02/2020 08:19:33 AM [facility] R69 Illness, unspecified Illness, unspecified Diagnosis 04/02/2020 08:19:33 AM [facility] Arterial occlusion Arterial occlusion Diagnosis 0 08:19:33 AM [facility] L leg arterial occlusion L leg arterial occlusion Diag nosis 04/02/2020 06:00:23 AM [facility] I10 Essential (primary) hypertension Essential (primary) h ypertension Diagnosis 10/29/2019 01:44:35 PM EST [facility] Surgeries/Procedures Procedure Description Date Indications Data Source(s) POCT AMB EKG POCT AMB EKG Routine 11/18/2020 10:16 AM EST Atrial flutter, paroxysmal 11/18/2020 03:16:00 PM EST Atrial flutter, paroxysmal [facility] Atrial flutter, paroxysmal DEBRIDEMENT NAIL ANY METHOD 1-5 11/06/2020 12:00:00 AM EST [facility] ([facility] AMPUTATION THIGH THROUGH FEMUR ANY LEVEL 09/27/2020 12 :00:00 AM EST [facility] ([facility]) TROPONIN QUANTITATIVE TROPONIN I Routine 09/23/2020 09/23/2020 12:00:00 AM EST [facility] THYROID STIMULATING HORMONE TSH TSH Routine 09/23/2020 09/23/2020 12:00:00 AM EST [facility] FINE NEEDLE ASPIRATION W/O IMAGING GUIDANCE 09/12/2020 12:00:00 AM EST eCW1 ([facility]) FINE NEEDLE ASPIRATION W/O IMAGING GUIDANCE 09/05/2020 12:00:00 AM EST eCW1 ([facility]) FINE NEEDLE ASPIRATION W/O IMAGING GUIDANCE 08/22/2020 12:00:00 AM EST eCW1 ([facility]) FINE NEEDLE ASPIRATION W/O IMAGING GUIDANCE 08/15/2020 12:00:00 AM EDT eCW1 ([facility]) PARING/CUTTING BENIGN HYPERKERATOTIC LESION 1 08/14/20 12:00:00 AM EDT [facility] ([facility] DEBRIDEMENT NAIL ANY METHOD 6/> 08/14/2020 12:00:00 AM EDT [facility] ([facility] FINE NEEDLE ASPIRATION W/O IMAGING GUIDANCE 08/08/2020 12:00:00 AM EDT eCW1 ([facility]) FINE NEEDLE ASPIRATION W/O IMAGING GUIDANCE 08/01/2020 12:00:00 AM EDT eCW1 ([facility]) FINE NEEDLE ASPIRATION W/O IMAGING GUIDANCE 07/25/2020 12:00:00 AM EDT eCW1 ([facility]) Ultrasound, Each 15 Min, Constant Attendance 0 12:00:00 AM EDT [facility] ([facility] ) THERAPEUTIC PX 1/> AREAS EACH 15 MIN EXERCISES 020 12:00:00 AM EDT [facility] ([facility] ) FINE NEEDLE ASPIRATION W/O IMAGING GUIDANCE 07/18/2020 12:00:00 AM EDT eCW1 ([facility]) Ultrasound, Each 15 Min, Constant Attendance 0 12:00:00 AM EDT [facility] ([facility]) THERAPEUTIC PX 1/> AREAS EACH 15 MIN EXERCISES 020 12:00:00 AM EDT [facility] ([facility]) POCT GLUCOSE, DOCKED POCT GLUCOSE, DOCKED Routine 07/07/2020 12:07 PM EDT 07[facility]07[facility]2020 [facility]ED POCT GLUCOSE, DOCKED Routine 07/07/2020 8:01 AM EDT 07/07/2020 08:01:00 AM [facility] BLOOD COUNT COMPLETE AUTO&AUTO DIFRNTL WBC COUNT CBC AND DIFFER ENTIAL Routine 07/07/2020 4:48 AM EDT 07/07/2020 04:48:00 AM [facility] GLUCOSE QUANTITATIVE BLOOD XCPT REAGENT STRIP POCT GLUCOSE, DOC KED Routine 07/06/2020 9:09 PM EDT 07/06/2020 09:09:00 PM [facility] GLUCOSE QUANTITATIVE BLOOD XCPT REAGENT STRIP POCT GLUCOSE, DOC KED Routine 07/06/2020 4:58 PM EDT 07/06/2020 04:58:00 PM [facility] GLUCOSE QUANTITATIVE BLOOD XCPT REAGENT STRIP POCT GLUCOSE, DOC KED Routine 07/06/2020 12:24 PM EDT 07/06/2020 12:24:00 PM [facility] GLUCOSE QUANTITATIVE BLOOD XCPT REAGENT STRIP POCT GLUCOSE, DOC KED Routine 07/06/2020 8:56 AM EDT 07/06/2020 08:56:00 AM [facility] GLUCOSE QUANTITATIVE BLOOD XCPT REAGENT STRIP POCT GLUCOSE, DOC KED Routine 07/06/2020 4:04 AM EDT 07/06/2020 04:04:00 AM [facility] BLOOD COUNT COMPLETE AUTO&AUTO DIFRNTL WBC COUNT CBC AND DIFFER ENTIAL Routine 07/06/2020 12:26 AM EDT 07/06/2020 12:26:00 AM [facility] GLUCOSE QUANTITATIVE BLOOD XCPT REAGENT STRIP POCT GLUCOSE, DOC KED Routine 07/06/2020 12:09 AM EDT 07/06/2020 12:09:00 AM [facility] GLUCOSE QUANTITATIVE BLOOD XCPT REAGENT STRIP POCT GLUCOSE, DOC LUDWIG Routine 07/05/2020 10:52 PM EDT 07/05/2020 10:52:00 PM [facility] GLUCOSE QUANTITATIVE BLOOD XCPT REAGENT STRIP POCT GLUCOSE, DOC KED Routine 07/05/2020 3:51 PM EDT 07/05/2020 03:51:00 PM [facility] GLUCOSE QUANTITATIVE BLOOD XCPT REAGENT STRIP POCT GLUCOSE, DOC LUDWIG Routine 07/05/2020 12:05 PM EDT 07/05/2020 12:05:00 PM [facility] GLUCOSE QUANTITATIVE BLOOD XCPT REAGENT STRIP POCT GLUCOSE, DOC KED Routine 07/05/2020 7:58 AM EDT 07/05/2020 07:58:00 AM [facility] BLOOD COUNT COMPLETE AUTOMATED CBC AND DIFFERENTIAL Routine 07/05/2020 4:55 AM EDT 07/05/2020 04:55:00 AM [facility] GLUCOSE QUANTITATIVE BLOOD XCPT REAGENT STRIP POCT GLUCOSE, DOC LUDWIG Routine 07/05/2020 4:28 AM EDT 07/05/2020 04:28:00 AM [facility] GLUCOSE QUANTITATIVE BLOOD XCPT REAGENT STRIP POCT GLUCOSE, DOC LUDWIG Routine 07/05/2020 12:29 AM EDT 07/05/2020 12:29:00 AM [facility] THROMBOPLASTIN TIME PARTIAL PLASMA/WHOLE BLOOD PARTIA L THROMBOPLASTIN TIME (PTT) Routine 07/04/2020 10:27 PM EDT 07/04/2020 10:27 :00 PM [facility] PROTHROMBIN TIME PROTIME INR Routine 07/04/2020 10:27 PM EDT 07/04/2020 10:27:00 PM [facility] BLOOD COUNT COMPLETE AUTO&AUTO DIFRNTL WBC COUNT CBC AND DIFFER ENTIAL Routine 07/04/2020 10:27 PM EDT 07/04/2020 10:27:00 PM [facility] BLOOD TYPING ABO TYPE AND SCREEN Routine 07/04/2020 10:27 PM EDT 07/04/2020 10:27:00 PM [facility] PHOSPHORUS INORGANIC PHOSPHORUS LEVEL Routine 07/04/2020 10:27 PM E DT 07/04/2020 10:27:00 PM [facility] MAGNESIUM MAGNESIUM LEVEL Routine 07/04/2020 10:27 PM EDT 07/04/2020 10:27:00 PM [facility] LIPASE LIPASE LEVEL Routine 07/04/2020 10:27 PM EDT 07/04/2020 10:27:00 PM [facility] LACTATE LACTIC ACID LEVEL, PLASMA Routine 07/04/2020 10:27 PM EDT 07/04/2020 10:27:00 PM [facility] BILIRUBIN DIRECT BILIRUBIN, DIRECT Routine 07/04/2020 10:27 PM EDT 07/04/2020 10:27:00 PM [facility] AMYLASE AMYLASE LEVEL Routine 07/04/2020 10:27 PM EDT 07/04/2020 10:27:00 PM [facility] COMPREHENSIVE METABOLIC PANEL COMPREHENSIVE METABOLIC PANEL Rou odalys 07/04/2020 10:27 PM EDT 07/04/2020 10:27:00 PM EDT [facility] THERAPEUTIC PX 1/> AREAS EACH 15 MIN EXERCISES 12:00:00 AM EDT [facility] ([facility] ) THERAPEUTIC PX 1/> AREAS EACH 15 MIN EXERCISES 12:00:00 AM EDT [facility] ([facility] ) THERAPEUTIC PX 1/> AREAS EACH 15 MIN EXERCISES 12:00:00 AM EDT [facility] ([facility] ) Physical Therapy Eval - Low Complexity 06/16/2020 12:0 0:00 AM EDT [facility] ([facility] ) X-Ray Spine Lumbosacral Complete Inc Bending Views Min Of 6 06/12/2020 12:00:00 AM EDT [facility] ([facility] ) PARING/CUTTING BENIGN HYPERKERATOTIC LESION 2-4 2019 12:00:00 AM EDT [facility] ([facility] DEBRIDEMENT NAIL ANY METHOD /> 06/05/2020 12:00:00 AM EDT [facility] ([facility] FINE NEEDLE ASPIRATION W/O IMAGING GUIDANCE 04/27/2020 12:00:00 AM EDT eCW1 ([facility]) POCT GLUCOSE, DOCKED POCT GLUCOSE, DOCKED Routine 04/12/2020 7:25 AM EDT 04/12/2020 11:25:00 AM [facility] GLUCOSE QUANTITATIVE BLOOD XCPT REAGENT STRIP POCT GLUCOSE, JAMES MUNROE Routine 04/11/2020 8:42 PM EDT 04/12/2020 12:42:00 AM [facility] GLUCOSE QUANTITATIVE BLOOD XCPT REAGENT STRIP POCT GLUCOSE, JAMES MUNROE Routine 04/11/2020 5:31 PM EDT 04/11/2020 09:31:00 PM [facility] UH COVID-19 PCR UH COVID-19 PCR Routine 04/11/2020 3:00 PM EDT 04/11/2020 07:00:00 PM [facility] GLUCOSE QUANTITATIVE BLOOD XCPT REAGENT STRIP POCT GLUCOSE, JAMES MUNROE Routine 04/11/2020 11:54 AM EDT 04/11/2020 03:54:00 PM [facility] GLUCOSE QUANTITATIVE BLOOD XCPT REAGENT STRIP POCT GLUCOSE, JAMES MUNROE Routine 04/11/2020 7:45 AM EDT 04/11/2020 11:45:00 AM [facility] GLUCOSE QUANTITATIVE BLOOD XCPT REAGENT STRIP POCT GLUCOSE, JAMES MUNROE Routine 04/10/2020 8:51 PM EDT 04/11/2020 12:51:00 AM [facility] GLUCOSE QUANTITATIVE BLOOD XCPT REAGENT STRIP POCT GLUCOSE, JAMES MUNROE Routine 04/10/2020 5:13 PM EDT 04/10/2020 09:13:00 PM [facility] GLUCOSE QUANTITATIVE BLOOD XCPT REAGENT STRIP POCT GLUCOSE, JAMES MUNROE Routine 04/10/2020 12:14 PM EDT 04/10/2020 04:14:00 PM [facility] GLUCOSE QUANTITATIVE BLOOD XCPT REAGENT STRIP POCT GLUCOSE, JAMES MUNROE Routine 04/10/2020 8:23 AM EDT 04/10/2020 12:23:00 PM [facility] GLUCOSE QUANTITATIVE BLOOD XCPT REAGENT STRIP POCT GLUCOSE, JAMES MUNROE Routine 04/09/2020 9:25 PM EDT 04/10/2020 01:25:00 AM [facility] GLUCOSE QUANTITATIVE BLOOD XCPT REAGENT STRIP POCT GLUCOSE, JAMES MUNROE Routine 04/09/2020 5:11 PM EDT 04/09/2020 09:11:00 PM [facility] GLUCOSE QUANTITATIVE BLOOD XCPT REAGENT STRIP POCT GLUCOSE, JAMES MUNROE Routine 04/09/2020 12:13 PM EDT 04/09/2020 04:13:00 PM [facility] GLUCOSE QUANTITATIVE BLOOD XCPT REAGENT STRIP POCT GLUCOSE, JAMES MUNROE Routine 04/09/2020 8:09 AM EDT 04/09/2020 12:09:00 PM [facility] GLUCOSE QUANTITATIVE BLOOD XCPT REAGENT STRIP POCT GLUCOSE, JAMES MUNROE Routine 04/08/2020 9:07 PM EDT 04/09/2020 01:07:00 AM [facility] GLUCOSE QUANTITATIVE BLOOD XCPT REAGENT STRIP POCT GLUCOSE, JAMES MUNROE Routine 04/08/2020 5:02 PM EDT 04/08/2020 09:02:00 PM [facility] GLUCOSE QUANTITATIVE BLOOD XCPT REAGENT STRIP POCT GLUCOSE, JAMES MUNROE Routine 04/08/2020 11:54 AM EDT 04/08/2020 03:54:00 PM [facility] GLUCOSE QUANTITATIVE BLOOD XCPT REAGENT STRIP POCT GLUCOSE, JAMES MUNROE Routine 04/08/2020 7:52 AM EDT 04/08/2020 11:52:00 AM [facility] GLUCOSE QUANTITATIVE BLOOD XCPT REAGENT STRIP POCT GLUCOSE, JAMES MUNROE Routine 04/07/2020 9:41 PM EDT 04/08/2020 01:41:00 AM [facility] GLUCOSE QUANTITATIVE BLOOD XCPT REAGENT STRIP POCT GLUCOSE, JAMES MUNROE Routine 04/07/2020 5:15 PM EDT 04/07/2020 09:15:00 PM [facility] GLUCOSE QUANTITATIVE BLOOD XCPT REAGENT STRIP POCT GLUCOSE, JAMES MUNROE Routine 04/07/2020 11:59 AM EDT 04/07/2020 03:59:00 PM [facility] GLUCOSE QUANTITATIVE BLOOD XCPT REAGENT STRIP POCT GLUCOSE, JAMES MUNROE Routine 04/07/2020 8:13 AM EDT 04/07/2020 12:13:00 PM [facility] BLOOD COUNT COMPLETE AUTOMATED CBC Routine 04/07/2020 6:06 A M EDT 04/07/2020 10:06:00 AM [facility] PHOSPHORUS INORGANIC PHOSPHORUS LEVEL Routine 04/07/2020 6:06 AM E DT 04/07/2020 10:06:00 AM [facility] MAGNESIUM MAGNESIUM LEVEL Routine 04/07/2020 6:06 AM EDT 04/07/2020 10:06:00 AM [facility] BASIC METABOLIC PANEL CALCIUM TOTAL BASIC METABOLIC PANEL Routi ne 04/07/2020 6:06 AM EDT 04/07/2020 10:06:00 AM EDT [facility] GLUCOSE QUANTITATIVE BLOOD XCPT REAGENT STRIP POCT GLUCOSE, DOC LUDWIG Routine 04/06/2020 10:32 PM EDT 04/07/2020 02:32:00 AM [facility] GLUCOSE QUANTITATIVE BLOOD XCPT REAGENT STRIP POCT GLUCOSE, DOC LUDWIG Routine 04/06/2020 5:28 PM EDT 04/06/2020 09:28:00 PM [facility] EKG 12-LEAD - CMAXX REPORT EKG 12-LEAD - CMAXX REPORT 04/06/2020 1:14 PM EDT 04/06/2020 05:14:41 PM EDT [facility] EKG 12-LEAD - CMAXX REPORT EKG 12-LEAD - CMAXX REPORT 04/06/2020 1:14 PM EDT 04/06/2020 05:14:41 PM EDT [facility] EKG 12-LEAD EKG 12-LEAD Routine 04/06/2020 1:14 PM EDT 04/06/2020 05:14:41 PM [facility] GLUCOSE QUANTITATIVE BLOOD XCPT REAGENT STRIP POCT GLUCOSE, JAMES MUNROE Routine 04/06/2020 12:03 PM EDT 04/06/2020 04:03:00 PM [facility] TROPONIN QUANTITATIVE TROPONIN T Timed 04/06/2020 11:35 AM EDT 04/06/2020 03:35:00 PM [facility] GLUCOSE QUANTITATIVE BLOOD XCPT REAGENT STRIP POCT GLUCOSE, DOC KED Routine 04/06/2020 8:00 AM EDT 04/06/2020 12:00:00 PM [facility] BLOOD COUNT COMPLETE AUTOMATED CBC Routine 04/06/2020 6:35 A M EDT 04/06/2020 10:35:00 AM [facility] PHOSPHORUS INORGANIC PHOSPHORUS LEVEL Routine 04/06/2020 6:35 AM E DT 04/06/2020 10:35:00 AM [facility] MAGNESIUM MAGNESIUM LEVEL Routine 04/06/2020 6:35 AM EDT 04/06/2020 10:35:00 AM [facility] BASIC METABOLIC PANEL CALCIUM TOTAL BASIC METABOLIC PANEL Routi ne 04/06/2020 6:35 AM EDT 04/06/2020 10:35:00 AM EDT [facility] TROPONIN QUANTITATIVE TROPONIN T Timed 04/06/2020 12:39 AM EDT 04/06/2020 04:39:00 AM [facility] GLUCOSE QUANTITATIVE BLOOD XCPT REAGENT STRIP POCT GLUCOSE, DOC KED Routine 04/05/2020 10:28 PM EDT 04/06/2020 02:28:00 AM [facility] GLUCOSE QUANTITATIVE BLOOD XCPT REAGENT STRIP POCT GLUCOSE, DOC KED Routine 04/05/2020 5:56 PM EDT 04/05/2020 09:56:00 PM [facility] TROPONIN QUANTITATIVE TROPONIN T Timed 04/05/2020 5:39 PM EDT 04/05/2020 09:39:00 PM [facility] ANGIOGRAPHY EXTREMITY UNILATERAL RS&I FLUORO ART LOWER EXTR EMITY-OR 22589 Routine 04/05/2020 2:30 PM EDT Diagnosis unknown 04/05/2020 06:30:00 PM EDT Diagnosis unknown [facility] Diagnosis unknown BLOOD GASES ANY COMBINATION PH PCO2 PO2 CO2 HCO3 POCT ISTAT ARTERIAL CG8 Routine 04/05/2020 1:29 PM EDT 04/05/2020 05:29:00 PM [facility] COAGULATION TIME ACTIVATED POCT ISTAT ACT Routine 04/05/2020 1:19 PM EDT 04/05/2020 05:19:00 PM [facility] COAGULATION TIME ACTIVATED POCT ISTAT ACT Routine 04/05/2020 12:57 PM EDT 04/05/2020 04:57:00 PM [facility] BYPASS GRAFT, W/OTHER THAN VEIN; FEMORAL-POPLITEAL BY PASS GRAFT, W/OTHER THAN VEIN; FEMORAL-POPLITEAL 04/05/2020 9:09 AM EDT foot ulcer 04/05/2020 01:09:00 PM EDT - 04/05/2020 08:25:00 PM [facility] GLUCOSE QUANTITATIVE BLOOD XCPT REAGENT STRIP POCT GLUCOSE, DOC KED Routine 04/05/2020 7:45 AM EDT 04/05/2020 11:45:00 AM [facility] BLOOD COUNT COMPLETE AUTO&AUTO DIFRNTL WBC COUNT CBC AND DIFFER ENTIAL Routine 04/05/2020 2:54 AM EDT 04/05/2020 06:54:00 AM [facility] PHOSPHORUS INORGANIC PHOSPHORUS LEVEL Routine 04/05/2020 2:54 AM E DT 04/05/2020 06:54:00 AM [facility] MAGNESIUM MAGNESIUM LEVEL Routine 04/05/2020 2:54 AM EDT 04/05/2020 06:54:00 AM [facility] BASIC METABOLIC PANEL CALCIUM TOTAL BASIC METABOLIC PANEL Routi ne 04/05/2020 2:54 AM EDT 04/05/2020 06:54:00 AM EDT [facility] GLUCOSE QUANTITATIVE BLOOD XCPT REAGENT STRIP POCT GLUCOSE, JAMES MUNROE Routine 04/04/2020 8:09 PM EDT 04/05/2020 12:09:00 AM [facility] GLUCOSE QUANTITATIVE BLOOD XCPT REAGENT STRIP POCT GLUCOSE, DOC LUDWIG Routine 04/04/2020 5:23 PM EDT 04/04/2020 09:23:00 PM [facility] BLOOD TYPING ABO TYPE AND CROSSMATCH Routine 04/04/2020 2:08 PM ED T 04/04/2020 06:08:00 PM [facility] GLUCOSE QUANTITATIVE BLOOD XCPT REAGENT STRIP POCT GLUCOSE, JAMES MUNROE Routine 04/04/2020 11:53 AM EDT 04/04/2020 03:53:00 PM [facility] ECHO TTHRC R-T 2D W/WOM-MODE COMPL SPEC&COLR DOP ECHOCARDIO GRAM 2D COMPLETE STAT 04/04/2020 8:25 AM EDT 04/04/2020 12:25:16 PM [facility] GLUCOSE QUANTITATIVE BLOOD XCPT REAGENT STRIP POCT GLUCOSE, JAMES MUNROE Routine 04/04/2020 7:46 AM EDT 04/04/2020 11:46:00 AM [facility] CONFIRMATORY TYPE CONFIRMATORY TYPE Routine 04/04/2020 3:23 AM EDT 04/04/2020 07:23:00 AM [facility] BLOOD COUNT COMPLETE AUTO&AUTO DIFRNTL WBC COUNT CBC AND DIFFER ENTIAL Routine 04/04/2020 3:23 AM EDT 04/04/2020 07:23:00 AM [facility] PHOSPHORUS INORGANIC PHOSPHORUS LEVEL Routine 04/04/2020 3:23 AM E DT 04/04/2020 07:23:00 AM [facility] MAGNESIUM MAGNESIUM LEVEL Routine 04/04/2020 3:23 AM EDT 04/04/2020 07:23:00 AM [facility] BASIC METABOLIC PANEL CALCIUM TOTAL BASIC METABOLIC PANEL Routi ne 04/04/2020 3:23 AM EDT 04/04/2020 07:23:00 AM EDT [facility] GLUCOSE QUANTITATIVE BLOOD XCPT REAGENT STRIP POCT GLUCOSE, DOC KED Routine 04/03/2020 7:59 PM EDT 04/03/2020 11:59:00 PM [facility] GLUCOSE QUANTITATIVE BLOOD XCPT REAGENT STRIP POCT GLUCOSE, DOC KED Routine 04/03/2020 5:06 PM EDT 04/03/2020 09:06:00 PM [facility] GLUCOSE QUANTITATIVE BLOOD XCPT REAGENT STRIP POCT GLUCOSE, DOC KED Routine 04/03/2020 12:09 PM EDT 04/03/2020 04:09:00 PM [facility] GLUCOSE QUANTITATIVE BLOOD XCPT REAGENT STRIP POCT GLUCOSE, DOC KEJones Routine 04/03/2020 8:06 AM EDT 04/03/2020 12:06:00 PM [facility] NATRIURETIC PEPTIDE PROBNP Routine 04/03/2020 3:47 AM EDT 04/03/2020 07:47:00 AM [facility] BLOOD COUNT COMPLETE AUTO&AUTO DIFRNTL WBC COUNT CBC AND DIFFER ENTIAL Routine 04/03/2020 3:47 AM EDT 04/03/2020 07:47:00 AM [facility] PHOSPHORUS INORGANIC PHOSPHORUS LEVEL Routine 04/03/2020 3:47 AM E DT 04/03/2020 07:47:00 AM [facility] MAGNESIUM MAGNESIUM LEVEL Routine 04/03/2020 3:47 AM EDT 04/03/2020 07:47:00 AM [facility] BASIC METABOLIC PANEL CALCIUM TOTAL BASIC METABOLIC PANEL Routi ne 04/03/2020 3:47 AM EDT 04/03/2020 07:47:00 AM EDT [facility] GLUCOSE QUANTITATIVE BLOOD XCPT REAGENT STRIP POCT GLUCOSE, JAMES MAYERSD Routine 04/02/2020 8:52 PM EDT 04/03/2020 12:52:00 AM [facility] GLUCOSE QUANTITATIVE BLOOD XCPT REAGENT STRIP POCT GLUCOSE, DOC KED Routine 04/02/2020 5:03 PM EDT 04/02/2020 09:03:00 PM [facility] GLUCOSE QUANTITATIVE BLOOD XCPT REAGENT STRIP POCT GLUCOSE, DOC KED Routine 04/02/2020 1:24 PM EDT 04/02/2020 05:24:00 PM [facility] VASC LAB US DOPPLER LOWER EXTREMITY UNILATERAL VENOUS LTD 32303 VASC LAB US DOPPLER LOWER EXTREMITY UNILATERAL VENOUS LTD [id number] Routine 1:08 PM EDT Superficial femoral artery occlusion 04/02/2020 05:08:00 PM EDT Superficial femoral artery occlusion [facility] Superficial femoral artery occlusion [facility] COVID-19 PCR [facility] COVID-19 PCR Routine 04/02/2020 12:56 PM EDT 04/02/2020 04:56:00 PM EDT [facility] HEPARIN ASSAY ANTI-XA UNFRACTIONATED HEPARIN LEVEL Routine 04/02/2020 12:37 PM EDT 04/02/2020 04:37:00 PM EDT [facility] PROTHROMBIN TIME PROTIME INR Routine 04/02/2020 12:37 PM EDT 04/02/2020 04:37:00 PM EDT [facility] BLOOD COUNT COMPLETE AUTOMATED CBC Timed 04/02/2020 12:37 P M EDT 04/02/2020 04:37:00 PM EDT [facility] HEMOGLOBIN GLYCOSYLATED A1C HEMOGLOBIN A1C Routine 04/02/2020 12:37 PM EDT 04/02/2020 04:37:00 PM EDT [facility] GLUCOSE QUANTITATIVE BLOOD XCPT REAGENT STRIP POCT GLUCOSE, DOC KED Routine 04/02/2020 12:24 PM EDT 04/02/2020 04:24:00 PM EDT [facility] XR CHEST FRONTAL ONLY [id number] XR CHEST FRONTAL ONLY [id number] Routine 04/02/2020 12:22 PM EDT 04/02/2020 04:22:00 PM EDT [facility] EKG 12-LEAD - CMAXX REPORT EKG 12-LEAD - CMAXX REPORT 04/02/2020 12:16 PM EDT 04/02/2020 04:16:16 PM EDT [facility] EKG 12-LEAD - CMAXX REPORT EKG 12-LEAD - CMAXX REPORT 04/02/2020 12:16 PM EDT 04/02/2020 04:16:16 PM EDT [facility] EKG 12-LEAD EKG 12-LEAD Routine 04/02/2020 12:16 PM EDT 04/02/2020 04:16:16 PM EDT [facility] ANGIOGRAPHY EXTREMITY UNILATERAL RS&I IR FEMORAL ARTERIOGRAM Ro utine 04/02/2020 10:44 AM EDT 04/02/2020 02:44:39 PM EDT [facility] CHG ANGIO EXTREMITY UNILAT [[id number]] CHG ANGIO EXTREMITY UNILAT [ [id number]] 04/02/2020 9:56 AM EDT right leg occlusion 04/02/2020 01:56:00 PM EDT - 04/02/2020 03:2 4:00 PM T [facility] OPERATIVE AND PROCEDURE NOTE OPERATIVE AND PROCEDURE NOTE 04/02/2020 9:32 AM EDT 04/02/2020 01:32:14 PM EDT [facility] FINE NEEDLE ASPIRATION W/O IMAGING GUIDANCE 03/30/2020 12:00:00 AM EDT eCW1 ([facility]) PARING/CUTTING BENIGN HYPERKERATOTIC LESION 2-4 2019 12:00:00 AM EDT [facility] ([facility] DEBRIDEMENT NAIL ANY METHOD /> 03/27/2020 12:00:00 AM EDT [facility] ([facility] FINE NEEDLE ASPIRATION W/O IMAGING GUIDANCE 03/23/2020 12:00:00 AM EDT eCW1 ([facility]) INJECTION 1 TENDON SHEATH/LIGAMENT APONEUROSIS 12:00:00 AM EDT [facility] ([facility] ) INJECTION 1 TENDON SHEATH/LIGAMENT APONEUROSIS 12:00:00 AM EDT [facility] ([facility] ) THERAPEUTIC PX 1/> AREAS EACH 15 MIN EXERCISES 12:00:00 AM EDT [facility] ([facility]) MANUAL THERAPY TQS 1/> REGIONS EACH 15 MINUTES 12:00:00 AM EDT [facility] ([facility] ) MANUAL THERAPY TQS 1/> REGIONS EACH 15 MINUTES 12:00:00 AM EDT [facility] ([facility]) THERAPEUTIC PX 1/> AREAS EACH 15 MIN EXERCISES 12:00:00 AM EDT [facility] ([facility]) Office Visit, Est Pt., Level 3 PC 02/29/2020 12:00:00 AM EDT eCW1 ([facility]) Office Visit, Est Pt., Level 2 FC 02/29/2020 12:00:00 AM EDT eCW1 ([facility]) THERAPEUTIC PX 1/> AREAS EACH 15 MIN EXERCISES 12:00:00 AM EDT [facility] ([facility]) MANUAL THERAPY TQS 1/> REGIONS EACH 15 MINUTES 12:00:00 AM EDT [facility] ([facility]) THERAPEUTIC PX 1/> AREAS EACH 15 MIN EXERCISES 12:00:00 AM EDT [facility] ([facility]) MANUAL THERAPY TQS 1/> REGIONS EACH 15 MINUTES 12:00:00 AM EDT [facility] ([facility]) THERAPEUTIC PX 1/> AREAS EACH 15 MIN EXERCISES 12:00:00 AM EDT [facility] ([facility]) MANUAL THERAPY TQS 1/> REGIONS EACH 15 MINUTES 12:00:00 AM EDT [facility] ([facility]) THERAPEUTIC PX 1/> AREAS EACH 15 MIN EXERCISES 12:00:00 AM EDT [facility] ([facility] ) MANUAL THERAPY TQS 1/> REGIONS EACH 15 MINUTES 12:00:00 AM EDT [facility] ([facility]) THERAPEUTIC PX 1/> AREAS EACH 15 MIN EXERCISES 12:00:00 AM EDT [facility] ([facility]) MANUAL THERAPY TQS 1/> REGIONS EACH 15 MINUTES 12:00:00 AM EDT [facility] ([facility]) THERAPEUTIC PX 1/> AREAS EACH 15 MIN EXERCISES 12:00:00 AM EDT [facility] ([facility]) MANUAL THERAPY TQS 1/> REGIONS EACH 15 MINUTES 12:00:00 AM EDT [facility] ([facility]) THERAPEUTIC PX 1/> AREAS EACH 15 MIN EXERCISES 12:00:00 AM EDT [facility] ([facility]) MANUAL THERAPY TQS 1/> REGIONS EACH 15 MINUTES 12:00:00 AM EDT [facility] ([facility]) THERAPEUTIC PX 1/> AREAS EACH 15 MIN EXERCISES 12:00:00 AM EDT [facility] ([facility]) MANUAL THERAPY TQS 1/> REGIONS EACH 15 MINUTES 12:00:00 AM EDT [facility] ([facility]) THERAPEUTIC PX 1/> AREAS EACH 15 MIN EXERCISES 12:00:00 AM EDT [facility] ([facility]) MANUAL THERAPY TQS 1/> REGIONS EACH 15 MINUTES 12:00:00 AM EDT [facility] ([facility]) THERAPEUTIC PX 1/> AREAS EACH 15 MIN EXERCISES 12:00:00 AM EDT [facility] ([facility]) MANUAL THERAPY TQS 1/> REGIONS EACH 15 MINUTES 12:00:00 AM EDT [facility] ([facility]) THERAPEUTIC PX 1/> AREAS EACH 15 MIN EXERCISES 12:00:00 AM EDT [facility] ([facility]) MANUAL THERAPY TQS 1/> REGIONS EACH 15 MINUTES 12:00:00 AM EDT [facility] ([facility]) THERAPEUTIC PX 1/> AREAS EACH 15 MIN EXERCISES 12:00:00 AM EDT [facility] ([facility]) MANUAL THERAPY TQS 1/> REGIONS EACH 15 MINUTES 12:00:00 AM EDT [facility] ([facility]) Physical Therapy Eval - Low Complexity 01/12/2020 12:0 0:00 AM EDT [facility] ([facility]) Office Visit, Est Pt., Level 3 FC 12/23/2019 12:00:00 AM EST eCW1 ([facility]) PARING/CUTTING BENIGN HYPERKERATOTIC LESION 2-4 2019 12:00:00 AM EST [facility] ([facility] DEBRIDEMENT NAIL ANY METHOD 6/> 11/05/2019 12:00:00 AM EST [facility] ([facility] Results ID Date Data Source [id number] 12/01/2020 10:45:00 AM EST [facility] Name Value Range Interpretation Code Description Data Lisa rce(s) Supporting Document(s) SARS coronavirus 2 RNA Not Detected [facility] [place] This lab was ordered by [facility] and reported by [facility]. ID Date Data Source [id number] 10/03/2020 02:51:00 PM EST [facility] Name Value Range Interpretation Code Description Data Lisa rce(s) Supporting Document(s) SARS-CoV-2 (COVID 19) [facility] This lab was ordered by [facility] a nd reported by [facility]. ID Date Data Source [id number] 09/23/2020 06:31:00 AM EST [facility] Name Value Range Interpretation Code Description Data Lisa rce(s) Supporting Document(s) SARS coronavirus 2 RNA [Presence] in Res piratory specimen by LENIN with probe detection [facility] This lab was ordered by [facility] a nd reported by [facility]. ID Date Data Source ERYTHROCYTE SEDIMENTATION RATE 09/07/2020 12:00:00 AM EST eC W1 ([facility]) Name Value Range Interpretation Code Description Data Lisa rce(s) Supporting Document(s) 126 0-20 ERYTHROCYTE SEDIMENTATION RATE eCW1 ([facility]) ID Date Data Source C REACTIVE PROTEIN QUANTITATIV (At [facility]) 09/07/2020 12:00 :00 AM EST eCW1 ([facility]) Name Value Range Interpretation Code Description Data Lisa rce(s) Supporting Document(s) 0.94 0.00-0.30 C REACTIVE PROTEIN QUANTI TATIV eCW1 ([facility]) ID Date Data Source CBC with Differential 09/07/2020 12:00:00 AM EST eCW1 ([facility]) Name Value Range Interpretation Code Description Data Lisa rce(s) Supporting Document(s) 62.7 36.0-66.0 NEUTROPHILS % eCW1 ([facility]) 8.8 0.0-5.0 MONO % eCW1 ([facility]) 3.3 0.0-3.0 EOS % eCW1 ([facility]) 23.4 24.0-44.0 LYMPH % eCW1 ([facility]) 1.3 1.5-5.0 LYMPH # eCW1 ([facility]) 3.4 1.5-8.5 NEUTROPHILS # eCW1 ([facility]) 0.9 0.0-1.0 BASO % eCW1 ([facility]) 0.5 0.0-0.8 MONO # eCW1 ([facility]) 0.2 0.0-0.5 EOS # eCW1 ([facility]) 0.1 0.0-0.2 BASO # eCW1 ([facility]) 7.1 4.0-10.0 WHITE BLOOD COUNT eCW1 ([facility]) 3.09 4.30-6.10 RED BLOOD COUNT eCW1 ([facility]) 8.5 13.5-17.5 HEMOGLOBIN eCW1 ([facility]) 91.9 80.0-96.0 MEAN CORPUSCULAR VOLUME e CW1 ([facility]) 27.5 27.0-33.0 MEAN CORPUSCULAR HEMOGLOB IN eCW1 ([facility]) 28.4 42.0-52.0 HEMATOCRIT eCW1 ([facility]) 29.9 32.0-36.5 MEAN CORPUSCULAR HGB CONC eCW1 ([facility]) 351 150-450 PLATELET COUNT, AUTOMATED eCW1 ([facility]) 15.9 11.5-14.5 RED CELL DISTRIBUTION WID TH eCW1 ([facility]) ID Date Data Source Basic Metabolic Profile (BMP) 09/07/2020 12:00:00 AM EST eCW 1 ([facility]) Name Value Range Interpretation Code Description Data Lisa rce(s) Supporting Document(s) 1.38 0.70-1.30 CREATININE FOR GFR eCW1 ([facility]) 36 7-18 BLOOD UREA NITROGEN eCW1 ([facility]) 86 70-100 GLUCOSE, FASTING eCW1 ([facility]) 102 98-107 CHLORIDE LEVEL eCW1 ([facility]) 133 136-145 SODIUM LEVEL eCW1 ([facility]) 52.3 >35 GLOMERULAR FILTRATION RATE eCW 1 ([facility]) 5.5 3.5-5.1 POTASSIUM SERUM eCW1 ([facility]) 8.8 8.8-10.2 CALCIUM LEVEL eCW1 ([facility]) 21 21-32 CARBON DIOXIDE LEVEL eCW1 ([facility]) ID Date Data Source WOUND CULTURE AND GRAM ST 08/22/2020 12:00:00 AM EST eCW1 ([facility]) Name Value Range Interpretation Code Description Data Lisa rce(s) Supporting Document(s) WOUND CULTURE AND GRAM ST eCW1 ([facility]) ID Date Data Source [id number] 08/09/2020 12:00:00 PM EDT [facility] Name Value Range Interpretation Code Description Data Lisa rce(s) Supporting Document(s) SARS coronavirus 2 RNA [facility] This lab was ordered by [facility] and reported by [facility]. ID Date Data Source WOUND CULTURE 07/25/2020 03:09:10 AM EDT eCW1 ([facility]) Name Value Range Interpretation Code Description Data Lisa rce(s) Supporting Document(s) FULL REPORT IN LAB NOTES ([facility]CW and [facility]). WOUND CULTURE eCW1 ([facility]) ID Date Data Source Pathology Request For Service 07/25/2020 03:09:03 AM EDT eCW 1 ([facility]) Name Value Range Interpretation Code Description Data Lisa rce(s) Supporting Document(s) SKELETAL eCW1 ([facility]) ID Date Data Source [id number] 07/20/2020 03:52:00 PM EDT [facility] ([facility]) Name Value Range Interpretation Code Description Data Lisa rce(s) Supporting Document(s) Partial Thromboplastin Time 34.0 s 24.2-38.5 [facility] ([facility]) Prothrombin Time 14.1 s 12.5-14.3 [facility] ([facility]) Inr 1.07 [facility] ([facility]) THERAPUTIC HUMAN INR VALUES INDICATIONS NORMAL RANGES PROPHYLAXIS/TREATMENT OF: VENOUS THROMBOSIS 2.0-3.0 PULMONARY EMBOLISM 2.0-3.0 PREVENTION OF SYSTEMIC EMBOLISM FROM: TISSUE HEART VALVES 2.0-3.0 ACUTE MYOCARDIAL INFARCTION 2.0-3.0 VALVULAR HEART DISEASE 2.0-3.0 ATRIAL FIBRILLATION 2.0-3.0 MECHANICAL VALVES(HIGH RISK) 2.5-3.5 RECURRENT MYOCARDIAL INFARCTION 2.5-3.5 ID Date Data Source [id number] 07/20/2020 03:52:00 PM EDT [facility] ([facility]) Name Value Range Interpretation Code Description Data Lisa rce(s) Supporting Document(s) Prothrombin time (PT) Laboratory test result [facility] ([facility]) Platelets [#/volume] in Blood by Automated count 407 10 150-450 [facility] ([facility]) ID Date Data Source [id number] 07/14/2020 03:58:00 PM EDT [facility] ([facility]) Name Value Range Interpretation Code Description Data Lisa rce(s) Supporting Document(s) Erythrocyte sedimentation rate by Westergren method 61 mm/hr 0-20 [facility] ([facility]) C reactive protein [Mass/volume] in Serum or Plasma by High sensitivity method 0.58 mg/dL 0.00-0.30 [facility] ID Date Data Source [id number] 07/14/2020 03:58:00 PM EDT [facility] ([facility]) Name Value Range Interpretation Code Description Data Lisa rce(s) Supporting Document(s) White Blood Count 5.2 10 4.0-10.0 [facility] ([facility]) Red Blood Count 3.02 10 4.30-6.10 [facility] ([facility]) Hemoglobin 9.0 g/dL 13.5-17.5 [facility] ([facility]) Hematocrit 29.6 % 42.0-52.0 [facility] ([facility]) Mean Corpuscular Hemoglobin 29.8 pg 27.0-33.0 [facility] ([facility]) Mean Corpuscular Volume 98.0 fl 80.0-96.0 M [facility]ENT ([facility]) Red Cell Distribution Width 15.4 % 11.5-14.5 [facility] ([facility]) Neutrophils % 58.6 % 36.0-66.0 [facility] Mean Corpuscular HGB Conc 30.4 g/dL 32.0-36.5 [facility] ([facility]) Platelet Count, Automated 286 10 150-450 [facility] ([facility]) Lymph % 26.6 % 24.0-44.0 [facility] Eos % 2.7 % 0.0-3.0 [facility]) [place] % 9.4 % 0.0-5.0 [facility]) Baso % 0.6 % 0.0-1.0 [facility]) Nucleated Red Blood Cell % 0.0 % 0-0 [facility] ([facility]) Immature Granulocyte % 2.1 % 0-3.0 [facility] ([facility]) Lymph # 1.4 10 1.5-5.0 [facility] ([facility]) [place] # 0.5 10 0.0-0.8 [facility]) Neutrophils # 3.1 10 1.5-8.5 [facility] ([facility]) Eos # 0.1 10 0.0-0.5 [facility] ([facility]) Baso # 0.0 10 0.0-0.2 [facility] ([facility]) ID Date Data Source [id number] 07/07/2020 03:41:08 PM EDT [facility] Name Value Range Interpretation Code Description Data Lisa rce(s) Supporting Document(s) Discharge Summary [facility] [id number] [facility] [file] [id number] ID Date Data Source [id number] 07/07/2020 12:39:30 PM EDT [facility] Name Value Range Interpretation Code Description Data Lisa rce(s) Supporting Document(s) Glucose [Mass/volume] in Capillary blood by Glucometer 220 mg/dL 70- 140 H [facility] ID Date Data Source [id number] 07/07/2020 08:24:19 AM EDT [facility] Name Value Range Interpretation Code Description Data Lisa rce(s) Supporting Document(s) Glucose [Mass/volume] in Capillary blood by Glucometer 177 mg/dL 70- 140 H [facility] ID Date Data Source [id number] 07/07/2020 05:36:[address] [facility] Name Value Range Interpretation Code Description Data Lisa rce(s) Supporting Document(s) Leukocytes [#/volume] in Blood by Automated count 4.2 10*3/uL 4-10 [facility] Erythrocytes [#/volume] in Blood by Automated count 2.95 10*6/uL 4.6- 6.1 L [facility] Hemoglobin [Mass/volume] in Blood 8.9 g/dL 13.5-18 L [facility] Hematocrit [Volume Fraction] of Blood by Automated count 27.6 % 4 1-53 L [facility] Erythrocyte mean corpuscular volume [Entitic volume] by Auto mated count 93.7 fL 80-96 [facility] Erythrocyte mean corpuscular hemoglobin [Entitic mass] by Automated count 30.3 pg 27-33 [facility] Erythrocyte mean corpuscular hemoglobin concentration [Mass/volume] by Automated count 32.3 g/dL 32.0-36.0 [facility] width [Ratio] by Automated count 15.8 % 11.5-14.5 H [facility] Platelets [#/volume] in Blood by Automated count 243 10*3/uL 150-400 [facility] Differential cell count method - Blood [facility] Neutrophils/100 leukocytes in Blood by Automated count 57 % [facility] Lymphocytes/100 leukocytes in Blood by Automated count 25 % [facility] Monocytes/100 leukocytes in Blood by Automated count 13 % [facility] Eosinophils/100 leukocytes in Blood by Automated count 4 % [facility] Basophils/100 leukocytes in Blood by Automated count 1 % [facility] Neutrophils [#/volume] in Blood by Automated count 2.49 10*3/uL 1.8-7 .0 [facility] Lymphocytes [#/volume] in Blood by Automated count 1.05 10*3/uL 1.2-4 .0 L [facility] Monocytes [#/volume] in Blood by Automated count 0.54 10*3/uL 0-0.8 [facility] Eosinophils [#/volume] in Blood by Automated count 0.15 10*3/uL 0-0.5 [facility] Basophils [#/volume] in Blood by Automated count 0.03 10*3/uL 0-0.2 [facility] Nucleated erythrocytes/100 leukocytes [Ratio] in Blood by Automated count 0 /100{WBCs} 0-0 [facility] ID Date Data Source [id number] 07/06/2020 09:12:33 PM EDT [facility] Name Value Range Interpretation Code Description Data Lisa rce(s) Supporting Document(s) Glucose [Mass/volume] in Capillary blood by Glucometer 148 mg/dL 70- 140 H [facility] ID Date Data Source [id number] 07/06/2020 05:15:16 PM EDT [facility] Name Value Range Interpretation Code Description Data Lisa rce(s) Supporting Document(s) [facility] [id number] lbm [file] [id number]= ID Date Data Source [id number] [facility] Code Description Data Lisa rce(s) Supporting Document(s) Glucose [Mass/volume] in Capillary blood by Glucometer 151 mg/dL 70- 140 H [facility] ID Date Data Source [id number] 07/06/2020 12:27:05 PM [facility] Value Range Interpretation Code Description Data Lisa rce(s) Supporting Document(s) Glucose [Mass/volume] in Capillary blood by Glucometer 134 mg/dL 70- 140 [facility] ID Date Data Source [id number] 07/06/2020 09:01:54 AM [facility] Value Range Interpretation Code Description Data Lisa rce(s) Supporting Document(s) Glucose [Mass/volume] in Capillary blood by Glucometer 141 mg/dL 70- 140 H [facility] ID Date Data Source [id number] 07/06/2020 06:48:31 AM [facility] Value Range Interpretation Code Description Data Lisa rce(s) Supporting Document(s) History and Physical [facility] [id number]/HUAodDHOsz9CnAKofRNh3DWcsFLPlF2IeTTT7nS7pYKZ6ZIrFBqGtWiGdOSC5 lbm [file] AgICAgICAgICAgICAgICAgICAgICAgICAgICAgICAg ICAgICAgICAgICAgICAgICAgICAgICAgICAgICAgICAgICAgICAgICAgICAgICAgICAgICAgICAgICAg ZYAhON6OFERpZYEaLHChVXJjFYQgGGUoLWOxWQJmHAGaFZNnDDHeKBPrSKXbPORpYYRnAHVyELIpPMHa ICAgICAgICAgICAgICAgICAgICAgICAgICAgICAgIC JqBXIaUSHrRABfJZUzJN2ILURpACMkWHYgUDLfEEHrWUEjFYCzQOCoUAJzQIPhEDDfWUPtCXOfOIDbCY ZvNNXhOVOtNCYbMRBnHLLzIJIiDNDtZUZrCPExPYHeTLYlAYXzHIVdJETsRCMkXAAgGTAkMSRuHQ7ENE AgICAgICAgICAgICAgICAgICAgICAgICAgICAgICAg ICAgICAgICAgICAgICAgICAgICAgICAgICAgICAgICAgICAgICAgICAgICAgICAgICAgICAgICAgICAg EKZkHPFmCS6SQEToQEYjNTIsFAScMFFfYXGxCJQyZTHuTJQsVZOmQHUrONGuKUBbCFJtDAQqBPCfPVIa ICAgICAgICAgICAgICAgICAgICAgICAgICAgICAgIC EuBQQmIACgVBKoSXGmTQKcRQ3FAJVnSZBcUWMbOKXdTJYhOBAmXWPqFLMoYZJnTKXpIUUyLMNzERPyUR AgICAgICAgICAgICAgICAgICAgICAgICAgICAgICAgICAgICAgICAgICAgICAgICAgICAgICAgICAgIA 0KICAgICAgICAgICAgICAgICAgICAgICAgICAgICAg ICAgICAgICAgICAgICAgICAgICAgICAgICAgICAgICAgICAgICAgICAgICAgICAgICAgICAgICAgICAg ZJVvVAPdIDViXO6GYBPzDIWeFJFdLERaBGHgQDGpXLBtTINwQEGbZMXsRLCxPLAfNDWkDXOvFPBnWBLq ICAgICAgICAgICAgICAgICAgICAgICAgICAgICAgIC GsUNQoJOSaUTJnEUJaXVAlNRSbIC1BGTLkQOZwVZAgGOTxABSdQWPrYUFcZYJfDAHnUMWiOFXkMUUrXB AgICAgICAgICAgICAgICAgICAgICAgICAgICAgICAgICAgICAgICAgICAgICAgICAgICAgICAgICAgIC EwTW2HPA10tLEdq0D7OUVgAN7kvpp/Xf7AYAnwdgHc hEGySC4UPgShCH9xlh0FOuAaBO3kbj7NKPaZXvMqB9E3lKXlAAKjAWWJSjCaQ30rKWvyJn82TTmlXNAy VfKvADg3Hd1CZhDfX5tfWVEsRiH7ISBfSrP1MRTqDgN6ENAcMnOtPEGhDLPbPOFdOLGMLJJ8SUQqOzLr VRxvTP7Ez1YsrHD9ZCu+Vx3DLF0eo0IjVZpuGLQwTI 8nax8TZCwBSuOdM2UfcjM6OPN8YKLlNe5SYMYyQZZdlNNdXJMtYUVHQzMxD0RroC59SIEOQn2+DQplbm IzMihNDhW3GBRds2OvQCo9VI5RGKDcCEq3jLEwRNYCVGD7GXmemzacJgYJsVZbLrCqyqseKADsXASoUK 5uQB1sCPCgIIM2SgL7GXGYZF9GZIJbTLNzlNBwJJQo MZHPUM6LJNczUSP6CQHtksTxiBIbGTijAR5ICDTypdPeBjhhTNGDBGc+Km1XVV1xm5MePYq7CWWgPD5h zi9HSRySWeBuS5U2nLYuJ8C8USoiFo9WUCWlBEXqCeXpYGRERPgeXH0OWF3ozhO6TV6KzQCeSCObVVRw nWWaJSa1G58dyPJaODubLQ7ZZEU+Chintan+Mq3XGNMgLB RcYZQqPnTaBHQMSqZoY6StO0BLa8UbV0VdRR69eOliqrTgOQzyAP0VII3hUBHnXERSBN9LyYNuyO9rxh NpCYPyQKJUEtVpK28yvOBpAKLvCPA5MSYuAq7RWPCvF4EvixIrdMsgddJgQTOzZMRPEJ1WCGpkaxDwhJ HhcGhtFD24vKwgTR4IEp9PXeUpGP7hph5XxIAqCe1J AFR3DN2FWGRbTICaMHYnXTI1UUAyGdNhDKhbRZXtYVAiHMB7UFZiQSCpWY5PDmQyRLYwAzY4RMhoYJGz YNBnlu9WIFZfUSLzUpM2XXIkQGTqMMRqJAkgCRBmNHJhLRA9WCCjWALgXT5XXoJyODUgNBX7NSWvZNYi KBHfvn4ENCUzGGEgWkD6XDJbOVAfFOZeYQxoRDTkYM J0UXZ7RDBiGGGvWV9ICrUqPGXdIHIuGjKhFOVfFZNseh7TPIJuYVZqJAGgFQTjQJMcIQElXAodTQOhDK Q9MmY1ONCxHKSeOP8JGsRsTVMwFEFoIUdqGBQpUPKrue4GQZZjWFFgOwBfTZAhJNSqCYNrMKtjPNOwHG J0IKn9JSYmOYNeJD1FBzQdAXQiNJO2NXAuAOSoWWNy wx4COYGoAFCkUrAzNHYqPESoDWJyKSkqWZIoGZX7ZHKgXGAxBVIxZU4YRtFfASKbEAj4EgCiILQhKTDk fz7AELNbLOZjRvV7ChApZQMjEZSaVFzcPWXbRAO5ASOqAQYnSTQvCV7XKvMdPQEoLJv5ONtzVEMqDZCw vv4TGEBbCDXeBXJpVPMwTDGtWJSxJAffSSUmSKV4TE n2WHBhEEOxOE8LHnFwYAMwHkRyFLnzWXMyAWOtdv6HNJArCKYyHAN2HIPxVVKlCDRqHSnqNLEtCWWoKL O3ZEQfLPQxKU1VSmNjJGSqDkN9LBtkZWJmJLRsth7TEHDsWUIdCUenBENsNZLiWWUrLYdvPTXmVXIbCG r1RHXxKCFvYP1QYxWkHXBjDcPhFkZdLFCuXJMcaj5P DIMmYJKiToU2YRVgSCVwCSKeWDkdLSUiOBPeEYXjYOMjZXYpHU1COyQsUANdVuVlIioaHWLsHDAtik6P KCUzRYZsKFP2DBObIYVjMJFiIHceHOKlTSI0CVJ6ZFPsXFQrRX2MBkUtSSAjVrFkKQiqWUPdACOcne8B JQCmHXEgDUP4GKDnEPBgELRpMHniCNChEUC2UHZ7SJ ZqCWWaSG9KJnUcGCOxTvf1WSMeXJHzZNZplj5WRGPuFYMwRaO0ZcOoHRGiSYGnRZduSXUlONQ4UlV8QJ YoYSRrOS9TMmUuMQssXTHGDfe6BTdgR6c4PVZ0TA3OD1Xyl7DoFJXzPJGLMNysUD6oykQlBMWxKm5TO4 tMWpvaJJDjZKYgYFJhZiy0SQN6KShzZKY2GOB0I1G1 NyDoQL3eJEB4CjE1PJPnBQHxZHJwCBE6IRU3GXOiLVr9HpMuJVJ7QdXuTT4RZw7LYnK1UKU3aHUgMb9O Wfo2NduMMwBjPU8ZBLn= ID Date Data Source [id number] 07/06/2020 04:06:[address] [facility] Name Value Range Interpretation Code Description Data Lias rce(s) Supporting Document(s) Glucose [Mass/volume] in Capillary blood by Glucometer 128 mg/dL 70- 140 [facility] ID Date Data Source [id number] 07/06/2020 12:59:[address] [facility] Name Value Range Interpretation Code Description Data Lisa rce(s) Supporting Document(s) Leukocytes [#/volume] in Blood by Automated count 5.8 10*3/uL 4-10 [facility] Erythrocytes [#/volume] in Blood by Automated count 3.06 10*6/uL 4.6- 6.1 L [facility] Hemoglobin [Mass/volume] in Blood 9.4 g/dL 13.5-18 L [facility] Hematocrit [Volume Fraction] of Blood by Automated count 29.0 % 4 1-53 L [facility] Erythrocyte mean corpuscular volume [Entitic volume] by Auto mated count 94.9 fL 80-96 [facility] Erythrocyte mean corpuscular hemoglobin [Entitic mass] by Automated count 30.7 pg 27-33 [facility] Erythrocyte mean corpuscular hemoglobin concentration [Mass/volume] by Automated count 32.4 g/dL 32.0-[facility] width [Ratio] by Automated count 16.8 % 11.5-14.5 H [facility] Platelets [#/volume] in Blood by Automated count 268 10*3/uL 150-400 [facility] Differential cell count method - Blood [facility] Neutrophils/100 leukocytes in Blood by Automated count 61 % [facility] Lymphocytes/100 leukocytes in Blood by Automated count 25 % [facility] Monocytes/100 leukocytes in Blood by Automated count 10 % [facility] Eosinophils/100 leukocytes in Blood by Automated count 3 % [facility] Basophils/100 leukocytes in Blood by Automated count 1 % [facility] Neutrophils [#/volume] in Blood by Automated count 3.58 10*3/uL 1.8-7 .0 [facility] Lymphocytes [#/volume] in Blood by Automated count 1.44 10*3/uL 1.2-4 .0 [facility] Monocytes [#/volume] in Blood by Automated count 0.55 10*3/uL 0-0.8 [facility] Eosinophils [#/volume] in Blood by Automated count 0.16 10*3/uL 0-0.5 [facility] Basophils [#/volume] in Blood by Automated count 0.04 10*3/uL 0-0.2 [facility] Nucleated erythrocytes/100 leukocytes [Ratio] in Blood by Automated count 0 /100{WBCs} 0-0 [facility] ID Date Data Source [id number] 07/06/2020 12:38:15 AM [facility] Value Range Interpretation Code Description Data Lisa rce(s) Supporting Document(s) Glucose [Mass/volume] in Capillary blood by Glucometer 151 mg/dL 70- 140 [facility] ID Date Data Source [id number] 07/05/2020 10:53:59 PM [facility] Value Range Interpretation Code Description Data Lisa rce(s) Supporting Document(s) Glucose [Mass/volume] in Capillary blood by Glucometer 176 mg/dL 70- 140 [facility] ID Date Data Source [id number] 07/05/2020 03:52:42 PM [facility] Value Range Interpretation Code Description Data Lisa rce(s) Supporting Document(s) Glucose [Mass/volume] in Capillary blood by Glucometer 128 mg/dL 70- 140 [facility] ID Date Data Source [id number] 07/05/2020 12:21:14 PM [facility] Value Range Interpretation Code Description Data Lisa rce(s) Supporting Document(s) Glucose [Mass/volume] in Capillary blood by Glucometer 140 mg/dL 70- 140 [facility] ID Date Data Source [id number] 07/05/2020 08:13:51 AM [facility] Value Range Interpretation Code Description Data Lisa rce(s) Supporting Document(s) Glucose [Mass/volume] in Capillary blood by Glucometer 131 mg/dL 70- 140 [facility] ID Date Data Source [id number] 07/05/2020 07:40:59 AM [facility] Value Range Interpretation Code Description Data Lisa rce(s) Supporting Document(s) Leukocytes [#/volume] in Blood by Automated count 5.3 10*3/uL 4-10 [facility] Erythrocytes [#/volume] in Blood by Automated count 2.89 10*6/uL 4.6- 6.1 L [facility] Hemoglobin [Mass/volume] in Blood 8.7 g/dL 13.5-18 L [facility] Hematocrit [Volume Fraction] of Blood by Automated count 27.0 % 4 1-53 L [facility] Erythrocyte mean corpuscular volume [Entitic volume] by Auto mated count 93.5 fL 80-96 [facility] Erythrocyte mean corpuscular hemoglobin [Entitic mass] by Automated count 30.2 pg 27-33 [facility] Erythrocyte mean corpuscular hemoglobin concentration [Mass/volume] by Automated count 32.3 g/dL 32.0-36.0 [facility] width [Ratio] by Automated count 16.5 % 11.5-14.5 H [facility] Platelets [#/volume] in Blood by Automated count 251 10*3/uL 150-400 [facility] Differential cell count method - Blood [facility] Neutrophils/100 leukocytes in Blood by Automated count 63 % [facility] Lymphocytes/100 leukocytes in Blood by Automated count 26 % [facility] Monocytes/100 leukocytes in Blood by Automated count 10 % [facility] Eosinophils/100 leukocytes in Blood by Automated count 1 % [facility] Neutrophils [#/volume] in Blood by Automated count 3.32 10*3/uL 1.8-7 .0 [facility] Lymphocytes [#/volume] in Blood by Automated count 1.39 10*3/uL 1.2-4 .0 [facility] Monocytes [#/volume] in Blood by Automated count 0.55 10*3/uL 0-0.8 [facility] Eosinophils [#/volume] in Blood by Automated count 0.05 10*3/uL 0-0.5 [facility] Anisocytosis [Presence] in Blood by Light microscopy [facility] ID Date Data Source [id number] 07/05/2020 06:10:07 AM T [facility] Name Value Range Interpretation Code Description Data Lisa rce(s) Supporting Document(s) Glucose [Mass/volume] in Capillary blood by Glucometer 128 mg/dL 70- 140 [facility] ID Date Data Source [id number] 07/05/2020 12:32:26 AM [facility] Value Range Interpretation Code Description Data Lisa rce(s) Supporting Document(s) Glucose [Mass/volume] in Capillary blood by Glucometer 230 mg/dL 70- 140 H [facility] ID Date Data Source [id number] 07/04/2020 11:55:50 PM EDT [facility] Name Value Range Interpretation Code Description Data Lisa rce(s) Supporting Document(s) ABO and Rh group [Type] in Blood [facility] Blood group antibody screen [Presence] in Serum or Plasma [facility] Blood bank comment [facility] ID Date Data Source [id number] 07/04/2020 11:07:45 PM EDT [facility] Name Value Range Interpretation Code Description Data Lisa rce(s) Supporting Document(s) Leukocytes [#/volume] in Blood by Automated count 6.5 10*3/uL 4-10 [facility] Erythrocytes [#/volume] in Blood by Automated count 3.02 10*6/uL 4.6- 6.1 L [facility] Hemoglobin [Mass/volume] in Blood 9.3 g/dL 13.5-18 L [facility] Hematocrit [Volume Fraction] of Blood by Automated count 28.7 % 4 1-53 L [facility] Erythrocyte mean corpuscular volume [Entitic volume] by Auto mated count 94.8 fL 80-96 [facility] Erythrocyte mean corpuscular hemoglobin [Entitic mass] by Automated count 30.7 pg 27-33 [facility] Erythrocyte mean corpuscular hemoglobin concentration [Mass/volume] by Automated count 32.4 g/dL 32.0-36.0 [facility] width [Ratio] by Automated count 16.5 % 11.5-14.5 H [facility] Platelets [#/volume] in Blood by Automated count 283 10*3/uL 150-400 [facility] Differential cell count method - Blood [facility] Neutrophils/100 leukocytes in Blood by Automated count 63 % [facility] Lymphocytes/100 leukocytes in Blood by Automated count 25 % [facility] Monocytes/100 leukocytes in Blood by Automated count 9 % [facility] Eosinophils/100 leukocytes in Blood by Automated count 2 % [facility] Basophils/100 leukocytes in Blood by Automated count 1 % [facility] Neutrophils [#/volume] in Blood by Automated count 4.14 10*3/uL 1.8-7 .0 [facility] Lymphocytes [#/volume] in Blood by Automated count 1.58 10*3/uL 1.2-4 .0 [facility] Monocytes [#/volume] in Blood by Automated count 0.55 10*3/uL 0-0.8 [facility] Eosinophils [#/volume] in Blood by Automated count 0.16 10*3/uL 0-0.5 [facility] Basophils [#/volume] in Blood by Automated count 0.04 10*3/uL 0-0.2 [facility] Nucleated erythrocytes/100 leukocytes [Ratio] in Blood by Automated count 0 /100{WBCs} 0-0 [facility] ID Date Data Source [id number] 07/04/2020 11:18:00 PM [facility] Value Range Interpretation Code Description Data Lisa rce(s) Supporting Document(s) Prothrombin time (PT) 13.3 s 12.5-14.9 [facility] INR in Platelet poor plasma by Coagulation assay 1.00 [facility] Routine intensity oral anticoagulation I NR is typically 2.0-3.0. Target INR must be clinically individualized. ID Date Data Source [id number] 07/04/2020 11:18:00 PM [facility] Value Range Interpretation Code Description Data Lisa rce(s) Supporting Document(s) aPTT in Platelet poor plasma by Coagulation assay 27.9 s 24.0-33. 0 [facility] ID Date Data Source 07/04/2020 11:34:21 PM [facility] Value Range Interpretation Code Description Data Lisa rce(s) Supporting Document(s) Bilirubin.direct [Mass/volume] in Serum or Plasma <0.3 [facility] ID Date Data Source 07/04/2020 11:34:21 PM [facility] Value Range Interpretation Code Description Data Lisa rce(s) Supporting Document(s) Albumin [Mass/volume] in Serum or Plasma by Bromocresol green (BCG) dye binding method 3.7 g/dL 3.5-5.2 [facility] Bilirubin.total [Mass/volume] in Serum or Plasma 0.3 mg/dL <1.2 [facility] Calcium [Mass/volume] in Serum or Plasma 8.1 mg/dL 8.8-10.2 L [facility] Chloride [Moles/volume] in Serum or Plasma 105 mmol/L 98-107 [facility] Creatinine [Mass/volume] in Serum or Plasma 1.07 mg/dL 0.70-1.20 [facility] Glucose [Mass/volume] in Serum or Plasma 133 mg/dL 70-140 [facility] Alkaline phosphatase [Enzymatic activity/volume] in Serum or Plasma 45 U/L 40-129 [facility] Potassium [Moles/volume] in Serum or Plasma 4.4 mmol/L 3.4-5.1 [facility] Protein [Mass/volume] in Serum or Plasma 6.5 g/dL 6.4-8.3 [facility] Sodium [Moles/volume] in Serum or Plasma 138 mmol/L 136-145 [facility] Aspartate aminotransferase [Enzymatic activity/volume] in Serum or Plasma 24 U/L <40 [facility] Urea nitrogen [Mass/volume] in Serum or Plasma 19 mg/dL 8-23 [facility] Osmolality of Serum or Plasma by calculation 290 mosm/kg 275-300 [facility] Creatinine/Urea nitrogen [Mass Ratio] in Serum or Plasma 18 [facility] Bicarbonate [Moles/volume] in Serum 23 mmol/L 22-29 [facility] Alanine aminotransferase [Enzymatic activity/volume] in Seru m or Plasma 32 U/L <41 [facility] Anion gap 3 in Serum or Plasma 10 mmol/L 8-15 [facility] Glomerular filtration rate/1.73 sq M pre dicted among non-blacks [Volume Rate/Area] in Serum or Plasma by Creatinine-based formula (MDRD) >6 0 [facility] Glomerular filtration rate/1.73 sq M pre dicted among blacks [Volume Rate/Area] in Serum or Plasma by Creatinine-based formula (MDRD) >60 [facility] ID Date Data Source [id number] 07/04/2020 11:34:21 PM [facility] Name Value Range Interpretation Code Description Data Lisa rce(s) Supporting Document(s) Amylase [Enzymatic activity/volume] in Serum or Plasma 100 U/L 28- 103 [facility] ID Date Data Source [id number] 07/04/2020 11:34:21 PM [facility] Name Value Range Interpretation Code Description Data Lisa rce(s) Supporting Document(s) Magnesium [Mass/volume] in Serum or Plasma 1.8 mg/dL 1.6-2.4 [facility] ID Date Data Source [id number] 07/04/2020 11:34:21 PM [facility] Name Value Range Interpretation Code Description Data Lisa rce(s) Supporting Document(s) Lipase [Enzymatic activity/volume] in Serum or Plasma 70 U/L 13-6 0 H [facility] ID Date Data Source [id number] 07/04/2020 11:34:21 PM EDT [facility] Name Value Range Interpretation Code Description Data Lisa rce(s) Supporting Document(s) Phosphate [Mass/volume] in Serum or Plasma 2.5 mg/dL 2.5-4.5 [facility] ID Date Data Source [id number] 07/04/2020 11:18:31 PM EDT [facility] Name Value Range Interpretation Code Description Data Lisa rce(s) Supporting Document(s) Lactate [Moles/volume] in Serum or Plasma 1.6 mmol/l 0.5-2.2 [facility] ID Date Data Source [id number] 06/22/2020 12:00:00 AM EDT [facility] Patient Name: LOC GUTIERREZ [id number] [facility] Date of : 1935 3 [facility]: [facility] [id number] Fax: [phone] EXAM: MRI LUMBAR SPINE WITHOUT&WITH CONTRASTPROCEDURE INFORMATION:Exam: MR Lumbar Spine Without and With Contrast.Exam date and time: 06/22/2020 2:38 PM Age: 85 years old Clinical indication:Low back pain; Prior phu alonzo; Surgery date: 6+ months; Surgery type: PTunsure- 26 yrs agoTECHNIQUE: Imaging protocol: Multiplanar magnetic resonance images of thelumbar spine without and with intravenous contrast. Contrast material:PROHANCE; Contrast volume: 18 ml; Contrast route: INTRAVENOUS (IV);COMPARISON: No relevant prior studies available.FINDINGS:Vertebrae: The lumbar vertebral bodies are normal in height. Slightretrolisthesis of L5 on S1, with slight anterolisthesis of L4 on L5.Spinal cord: The distal end of the conus medullaris ends at T12-L1, normalin position. Mild posterior dural enhancement is identified within thelower lumbar spine, most significant at L3-L4. This is likely postoperativeor inflammatory. Infection is within the differential. 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 A decrease in disc height is identified atL4-L5 and L5-S1.T12-L1: Minimal disc bu lging at T12-L1, without significant narrowing ofthe thecal sac. No significant neural foraminal narrowing bilaterally.L1-L2: A broad-based disc bulge is identified, without significantnarrowing of the thecal sac. Mild bulging into the right neural foramen,without significant neural foraminal narrowing. Mild left neural foraminalnarrowing. Bilateral facet arthropathy with hypertrophy of the ligamentumflavum.L2-L3: Bilateral facet arthropathy with hypertrophy of the ligamentumflavum. A broad-based disc bulge is identified, with minimal narrowing ofthe thecal sac. Mild bilateral neural foraminal narrowing. L3-L4: Bilateralfacet arthropathy with hypertrophy of the ligamentum flavum. A broad- baseddisc bulge is identified. There is severe narrowing of the thecal sac.Narrowing of both lateral recesses. Severe left and moderate right neuralforaminal narrowing. Mild enhancement is seen within the soft tissuesadjacent to the facet joints at L3-L4 bilaterally, which is likelyinflammatory or secondary to arthropathy.L4-L5: Bilateral facet arthropathy. Bilateral L5 laminectomy defects. Nosignificant narrowing of the thecal sac. A broad-based disc bulge isidentified. There is narrowing of both lateral recesses. Severe bilateralneural foraminal narrowing is identified. There is encroachment upon thebilateral exiting L4 nerve roots. Enhancing scar tissue is identifiedwithin the lateral recesses bilaterally. L5-S1: Bilateral laminectomydefects identified at this level. Hypertrophy ligamentum flavum on the leftside seen. There is a broad-based disc bulge causing effacement of theanterior epidural fat, without thecal sac compression. Narrowing of theright lateral recess identified. Severe left and moderate right neuralforaminal narrowing.Soft tissues: Mild posterior paraspinal muscle edema identified. There ismild swelling of the subcutaneous tissues posterior to the lumbosacralspine.IMPRESSION:1. Slight retrolisthesis of L5 on S1, with slight anterolisthesis of L4 onL5.2. Degenerative changes are noted diffusely within the lumbar spine, asdescribed above.3. Severe narrowing of the thecal sac at L3- L4, with minimal thecal sacnarrowing at L2-L3.4. Neural foraminal narrowing identified diffusely within the lumbar spine.5. Mild posterior dural enhancement is identified within the lower lumbarspine, most significant at L3- L4. This is likely postoperative orinflammatory. Infection is within the differential. Clinical correlation isrecommended.6. Postoperative changes noted above. Enhancing scar tissue is identifiedwithin the lateral recesses bilaterally at L4-L5.7. Mild enhancement is seen within the soft tissues adjacent to the facetjoints at L3-L4 bilaterally, which is likely inflammatory or secondary toarthropathy.8. Additional findings described above.Thank you for allowing us to participate in the care of your patient.Dictated and Authenticated by: Dominic Post MD 06/22/2020 5:44 PMEastern Time ([place] & [place])VradV/normacTdiok you for referring LOC GUTIERREZ to our office. Electronically Signed - APOLINAR 06/23/20 10:12 Name Value Range Interpretation Code Description Data [facility] rce(s) Supporting Document(s) ID Date Data Source [id number] 06/14/2020 01:20:00 PM EDT [facility] Name Value Range Interpretation Code Description Data Lisa rce(s) Supporting Document(s) Creatinine For GFR 1.19 mg/dL 0.70-1.30 [facility] ([facility]) Glomerular Filtration Rate Laboratory test result [facility] ([facility]) <content>Units are mL/min/1.73 m2</content>
<content></content>
<content>Chronic Kidney Disease Staging per NKF:</content>
<content></content>
<content>Stage I & II GFR >=60 Normal to Mildly Decreased</content>
<content>Stage III GFR 30- 59 Moderately Decreased</content>
<content>Stage IV GFR 15-29 Severely Decreased</content>
<content>Stage V GFR <15 Very Little GFR Left</content>
<content>ESRD GFR <15 on VOLLEYBALL REFEREE</content>
<content></content> ID Date Data Source [id number] 06/14/2020 01:20:00 PM EDT [facility] ([facility]) Name Value Range Interpretation Code Description Data Lisa rce(s) Supporting Document(s) Urea nitrogen [Mass/volume] in Serum or Plasma 20 mg/dL 7-18 [facility] ([facility]) ID Date Data Source [id number] 04/14/2020 02:56:31 PM EDT [facility] Name Value Range Interpretation Code Description Data Lisa rce(s) Supporting Document(s) History and Physical [facility] NDARAv2tBiRIJrHi35/CSHqgLBCfz6JlZNwsYMi6QCurUNCfZ9JkFPT1qK9zHAF8AMyOVgAbVyJgBsP9 lbm [file] ICAgICAgICAgICAgICAgICAgICAgICAgICAgICAgIC AgICAgICAgICAgICAgICAgICAgICAgICAgICAgICAgICAgICAgICAgICAgICAgICAgICAgICAgICAgIC NeMUNiBOFaGY4QYQLaNELmHPHyCUTkJFFgIMVrYKOiNNSrUSXhQGBcMRTxYIFzRMUhXRUcJANrHMWwBT AgICAgICAgICAgICAgICAgICAgICAgICAgICAgICAg JJKeABOpGEAaQYLnHBVtAPByRM7BOJBuKIKsFWDvEDRpFNFxRBAgHWNkWUZbHWIqNPVcJDAjEKPrQEAf ICAgICAgICAgICAgICAgICAgICAgICAgICAgICAgICAgICAgICAgICAgICAgICAgICAgICAgICAgICAg TM6URYIeVPThFCZtKTPfRHTlNSGcNAGvKOLwPEIeBS AgICAgICAgICAgICAgICAgICAgICAgICAgICAgICAgICAgICAgICAgICAgICAgICAgICAgICAgICAgIC KcWIVaLLAeODJwNG7BUHPpTFWkJJPgFUGaHPKuDDHdBIEoFNVxJKKeKPCjMORrBRBsUPWiFPVfEEBzAZ AgICAgICAgICAgICAgICAgICAgICAgICAgICAgICAg KRQhVGKgYJCtQAVtCQTvZUGnUDFhXF5EAEHzFMVkYQCjLAGoSJDpTEKkDKXnIYAlQWLvEZBbEGShSXZs ICAgICAgICAgICAgICAgICAgICAgICAgICAgICAgICAgICAgICAgICAgICAgICAgICAgICAgICAgICAg NIOqKE2VSLPvBDPjZWUcLSPwZNEzJLZzMRQfAZCaPX AgICAgICAgICAgICAgICAgICAgICAgICAgICAgICAgICAgICAgICAgICAgICAgICAgICAgICAgICAgIC AjYSJkOBPyHQPqZYYcBU0MICSgXDSnDCOiSITtZGDcEVDtSNGnRHEbKQVjAYKgJOBqJDXhHAJzUYIqCE AgICAgICAgICAgICAgICAgICAgICAgICAgICAgICAg IOKgWYPiAXRdUDChGDAwLGSnQFDzXNYkCN7ZRSMhLJKpBSNqOLMxIKIlWZLmTTCkZDMhUEFjOTQrYYZz ICAgICAgICAgICAgICAgICAgICAgICAgICAgICAgICAgICAgICAgICAgICAgICAgICAgICAgICAgICAg NJQeDCAfYM9SIOYrQUZpKVUsGNPkXVWlSDEsZATwBK AgICAgICAgICAgICAgICAgICAgICAgICAgICAgICAgICAgICAgICAgICAgICAgICAgICAgICAgICAgIC VqIQCkCBQuIQBfCSWqBWAdAU3UTZ85pBPot0X5UQNuLJ7qnqg/Mx7ARVuwfePftBWjQH9PBvDtRJ5bio 3KGkKiGD1zyr4SAWaBLtPfG7I4pRMbBUMiNJCXJoHq D81oHQvtOo71TVegCLFfDdXmCKg2Kw9ECfGdS1czGMUnMnT6JPCaZmY7ZOJvTdS2MJMcKjLmGTwlPR4H l0FchKIsFYf+Hs5HOD8sl1TdWTcaAgOoTY1gua5QYByEScUkI0PghdC5DEV6UZVxJn9QXVSxSYVteBSa LVXwOXOWEyBdM0KbfL22KSLWDs7+DQplbmRvYmoNCj M6CQJoz1GcGYu8ZL5NMNEkTUe5eFKmCHIHQWN5XZ4iR1zfTWteOtVVf0K6VW82VJlmQHHsNPUjZh7bMV 7hABDpHEQfDiB0BQCSXN7KEOGrVDOsnYPiBHHmXQEHXZ6TUZloONS1QZPosuEwvETlQJutDF1AAAPtjm QgMjMgMCBSDQo+Eg7XIO5ka1OpEMyrOCWfTK4zkp6Q MXuYCoLgU1P4lOBhK0M9ANbbCg2SKAYdRBVvOyJqQKOHWBjoND8CJQ9uwdV0NY7RwFAsFRJfMQBpgHQp JUe9D37yfODzFCzmSA9MDPO+Chintan+Zx8OAVUvWMUiCWYaPkDkJGZDSeHtY2UqV0FNm9KcB6QbXL98eLuf ddVzEUspXG0LJM7kYKQmMOGUMR0ItBEdlH9fahYrYj LcIIQVWzAvG64xpEKnGGTkCMUyRPMpXx2PHXEgS5WqiuIooEktrqVaHPYuBULWOR8SFRkovgNamHNeaL uuSN77cPnmUN5FNu8OPkTnQU7ayo1CpCEjKi0YDRIyEe9LANFlZIFkKIOsYLM5AVOhWaJtJBypOCSlPN WkLQS8DNYfQQVqLG8PYoEvWIZkAxOlVRfhNCSxZCNo za0NXLNpJZDmGmxyZjQjGYVjWGUaLCnxHSLyZPWtWNT6SBFrSIMpGY3HQbOrUVIqVQYlWlacYDLfULVo zq0KQKUtLHFzJeT7ESElGTOpKJJqQUmoTRFvFAC7SyX4TUXjJJScXM6RAuSpQCTsHET9OnXcUGEoGTFn to1ZUYAqUDJhZpw4SeMtBWXcRSZpQXwgSANzLMZ0JN ncJTBsXYNtDP8LHdEcXBGaOBtmFZQuIYXkQBWjao1ETKQiMJGdIOEjWdSvHVRqKHAwPTzkTMPdSKB6NY ViDOBnSGBxXW2WYpLmDQEdVHj7TdpjQRKzKMRkqy4UJSHeUJCbQOW1CCOkXLDmWFUfYWnzNHNtAET0IC P3GZBsKTSyUC6QEzVgWMRjZxEbISFjKNVlVVCpzg7D IUBoYODqEMQ1PvInWPVxMXNhWPvpPEMpGJVvRlonONCzYOKlSG6LCmRjBRVhYeSsCyNySAOsRXVdpx7D PCDwKUYbEiE3HaFoHJPvSVFtXUaaEKLrMFFjRPE7HCQkUOZeJL3USgAyMQZbMiXaKWnmMWNkTNCrtl0F VTNiLCDrTUM1KUYaZIOhZNXsBWcfFAItQNC7OxFyME AbFFUnAA3EOjEhQTbaTDFPVsg5HCqcE4z4PDZeAh9ZH8Vtm6OaKcIeOYNYHNlrLM9rmnKoOVAiYf4TN1 iDSyemZ4F4GzS4VUJrVvW6UDP0YLnuSfTbAYy9FAy9JHZ8Db5xLBKoEuX4KesnLaG5UtDvQzQqGFSyX8 QjBMEkRrOkMKCxWrXmYO9KQc3AFoZ5ECE1cVWnXs3CNpU4PpDVCtZhZJ5BXLl= ID Date Data Source [id number] 04/12/2020 10:46:40 AM EDT [facility] Name Value Range Interpretation Code Description Data Lisa e(s) Supporting Document(s) Discharge Summary [facility] YBPTEa0zCxSYEuSh67/PEKhjFFEgp7YvYYaeWIa1NLpmRINzL8KcYYA5cB9wECT0CWcQJkJbXtVlJrS9 lbm [file] AgICAgICAgICAgICAgICAgICAgICAgICAgICAgICAg ICAgICAgICAgICAgICAgICAgDQogICAgICAgICAgICAgICAgICAgICAgICAgICAgICAgICAgICAgICAg ICAgICAgICAgICAgICAgICAgICAgICAgICAgICAgICAgICAgICAgICAgICAgICAgICAgICAgICAgICAg DQogICAgICAgICAgICAgICAgICAgICAgICAgICAgIC AgICAgICAgICAgICAgICAgICAgICAgICAgICAgICAgICAgICAgICAgICAgICAgICAgICAgICAgICAgIC AgICAgICAgICAgDQogICAgICAgICAgICAgICAgICAgICAgICAgICAgICAgICAgICAgICAgICAgICAgIC AgICAgICAgICAgICAgICAgICAgICAgICAgICAgICAg ICAgICAgICAgICAgICAgICAgICAgDQogICAgICAgICAgICAgICAgICAgICAgICAgICAgICAgICAgICAg ICAgICAgICAgICAgICAgICAgICAgICAgICAgICAgICAgICAgICAgICAgICAgICAgICAgICAgICAgICAg ICAgDQogICAgICAgICAgICAgICAgICAgICAgICAgIC AgICAgICAgICAgICAgICAgICAgICAgICAgICAgICAgICAgICAgICAgICAgICAgICAgICAgICAgICAgIC AgICAgICAgICAgICAgDQogICAgICAgICAgICAgICAgICAgICAgICAgICAgICAgICAgICAgICAgICAgIC AgICAgICAgICAgICAgICAgICAgICAgICAgICAgICAg ICAgICAgICAgICAgICAgICAgICAgICAgDQogICAgICAgICAgICAgICAgICAgICAgICAgICAgICAgICAg ICAgICAgICAgICAgICAgICAgICAgICAgICAgICAgICAgICAgICAgICAgICAgICAgICAgICAgICAgICAg ICAgICAgDQogICAgICAgICAgICAgICAgICAgICAgIC AgICAgICAgICAgICAgICAgICAgICAgICAgICAgICAgICAgICAgICAgICAgICAgICAgICAgICAgICAgIC AgICAgICAgICAgICAgICAgDQogICAgICAgICAgICAgICAgICAgICAgICAgICAgICAgICAgICAgICAgIC AgICAgICAgICAgICAgICAgICAgICAgICAgICAgICAg MYSxZPTwIGHfDEMjBOAyDIBrFAVaBYOtMNJsLVx9X2zeZNOeOWLyPY3fCGm6Ge5+RHvZIuMyGOK9biHt dD5SEP8jm1QsNVsqWLPya7TmHMt0MJ2VPNSsHNtcAF9GSZntjj0PVEOmAYOinJZOy1kbXoTzRUG7WCLr JextYS3BTPCwK4tkrzJuWQPjFYBLPVbvXGTGPZovZS HIKHJxGSHlWwFjBuSwUCJxZI7VBKJcX972xsCbNT0AKj2ZFjJhBA1zkj1SNjSnDTXjBzpZEsa5ZNuePR 4WqXQekXZyTyQmMSFEIzRzA7syv0DwVfCyKWKBINrfWS4Xj4VcuQYwIDf+Dk7ABH7mz3HgHUntVdIwMF 4gjn2YOTwJIzDbX0IeeCwhFKPhp1JzFGKkJNSBxD6g GVK3XUA8JB9cwRWzULDdYQXQhfM5sPppAjZcZCCqIq6dAF0pISSkNEMkOnO8VBTROK1VAYRhHRHgnSCu WFDzIQLJPG9QGEanDDU5UKIuwaIhmNDoNQvtFJ1WYMFausMlZwYzJWNLHJy+Pb2BOQ3zl1DiXVpuYBYi JM3xoh4MCXsWXuZeQ6S1yUJxA0A8HFzqMg3TDKFxHS YsRpThWCSYUTwbWS3ZCB8eohK1XU1UxVDqKKVrJDKlbQHjDIj2F38qjOIcKIbyNZ0RVFD+Chintan+Pg0KIC OfFSRhIQAeOfVtJXXXNqSgI5QjC7RVx5EdN6BpDW40qQunvqOcBEpgHO5QJS3iCBPpZYLDAV3NaAZtdU 5rzgLpCcZxXBEPVcSaA46lvLLtDULpHYIzGYTcEk5P HAXhL8MlxmAtiWyoouXdIXAoETMRNT5BBXocisAgpRAhrPcaME60gKirQY5EEx2KZaKzKX9fby2ZoHYg Xb7RLVUjBA7XYNZpPSOxWZRjDRY2WOPqOiDcTZfgYLIvSCBtUOV2VZIoZHRnAK6YDqVgFOAwKbG7OCoz FSTkLJTjcu3XYLWdMKOdJJQfRiNrHGZrRNHjOWnrQE UwSJKhHFE1FZYwTIQjJW7GVvLqIELeIDU8EBVhYXUkAPEyie3FUGHwDMScYsF2SpIdBLPqTRBxOYflIT EbCUY4BTe1SZJoYDBaGH3OToJoETZuCQVaFGYqPJSsHKYmlb6QZVZiQKOrHDnvNDOcHLCwBHBcVGqwLE NqLWL2TDT8XSIuVNEaGT5TYwUyOSSvRYDtOOZaEHYn ZQYhwv0GEOJiXTMyCZR5FYQtRNQxIEUiBEjpZGWlTBNoLRQcZZOqLIFaIT1WSbQnUTUqZWEhEEmgLHZl PMVxtk9QJVPsYQCjJza0VqKeITPgFPBdNVgrNOVaPYE0TGM6MMKpORNvYY2AReUqUFXqVBTnYGwwMMMk YHAmwb3XZGEnIHMtUNBgImXbHUUyDULxFAguTUPkCL R6PFM4WLZmRXHkFZ5MSmHbCSPeYJY2QVMxHOJjUYLxer1KFBNsGFAoTpM7MZIeNHQfPPNoHHpsPLBzHY Z5Uhm0HQAgIFClOF0IZoNzGVVmXps5VZepNDEmKONvuj4PHGYhLIIjGon6LrUsTWWmLJOqDNiaXONjQF K9SInnEDRsIMAzKB6ZOaJrEBPeQyP6NDgkVEQrFRMt tt3LVLYpUZSbLpR2HbLyMOKgHBJzMDoiCYAjMRTqXhh2BFUzJABjYV2SKyEvHOGzThJ1EBiiPEPxPHJf yg5VLBMfQKDvTtb6XYNpCXYoOJTqYTumFHCzPVW8NQirZAClJEAcSE1FHnFrSAGmMeJ1NFAcHLWwEOZj ye3SUUQgFEZyIZacLmWaEGPjJMEgWSwaPPOnMDF6RJ pnPYPhODYsMO5VRkLeTOwdPWNIZqs8TKkwJ3n7WIQnOF1PO5Pcx8PyMkEcOPJCGVpbYS6ywtXvWXSrNr 3AH2pCThcgRGw4HMQwVnJlWSX3PCKkWlM0RHHcOMcyBpkzTgxgZg0rABE3SdfrY4UvRUWnPSKuDsNaDd ylYnC4QBHaXZPgMRR2RaUqEA2SGo8CNvI6TCS8eIPdGy9CFlNcNPDDFgXnZU4GIUd= ID Date Data Source [id number] 04/12/2020 07:34:21 AM EDT [facility] Name Value Range Interpretation Code Description Data Lisa rce(s) Supporting Document(s) Glucose [Mass/volume] in Capillary blood by Glucometer 219 mg/dL 70- 140 [facility] ID Date Data Source [id number] 04/11/2020 08:46:28 PM [facility] Name Value Range Interpretation Code Description Data Lisa rce(s) Supporting Document(s) Glucose [Mass/volume] in Capillary blood by Glucometer 226 mg/dL 70- 140 [facility] ID Date Data Source [id number] 04/11/2020 05:32:28 PM [facility] Name Value Range Interpretation Code Description Data Lisa rce(s) Supporting Document(s) Glucose [Mass/volume] in Capillary blood by Glucometer 190 mg/dL 70- 140 [facility] ID Date Data Source [id number] 04/12/2020 09:02:48 AM [facility] Service Cmnt XXX-Imp : NoneMicroorganism XXX Cult : 2019 nCoV Real-Time RT-PCR: NOT DETECTEDTest performed using the Rheonix COVID-19 MDx Assay. This test is only for use under the Food and Drug Administration's Emergency Use Authorization.Additional information is available on the following FDA websites for health care providers and patients. https://www.fda.gov/media/102206/download , https://www .fda.gov/media/528119/download Name Value Range Interpretation Code Description Data Lisa rce(s) Supporting Document(s) ID Date Data Source [id number] 04/11/2020 03:00:00 PM [facility] Cmnt XXX-Imp : NoneMicroorganism XXX Cult : 2019 nCoV Real-Time RT-PCR: NOT DETECTEDTest performed using the Rheonix COVID-19 MDx Assay. This test is only for use under the Food and Drug Administration's Emergency Use Authorization.Additional information is available on the following FDA websites for health care providers and patients. https://www.fda.gov/media/946935/download , https://www .fda.gov/media/264873/download Name Value Range Interpretation Code Description Data Lisa rce(s) Supporting Document(s) Microorganism identified in Unspecified specimen by [facility] This lab was ordered by [facility] and reported by [facility]. ID Date Data Source [id number] 04/11/2020 02:57:[address] [facility] Name Value Range Interpretation Code Description Data Lsia rce(s) Supporting Document(s) Consultation [facility] DFNUPx4pOcUNMtAi75/EVCqkNAUue9ZnASpiFJz9JXpaTIQjN9KnHMW2rC0bMPP7XItDRaFlPcYtVgRh lbm [file] ICAgICAgICAgICAgICAgICAgICAgICAgICAgICAgIC AgICAgICAgICAgICAgICAgICAgICAgICAgICAgICAgICAgICAgICAgICAgICAgICAgICAgICAgICAgIC QjYA1OQDSsEBIrXKEtTZCbTKTdBAEwZZBvNFHqPRXaYPBuEIQhSESkGZQcSGLwRMLtEJOwRAGxIRReKC AgICAgICAgICAgICAgICAgICAgICAgICAgICAgICAg VXOgBHNmTGYmRDZaOH9ODSKzVQFuHVNsHDTcINDtTWToZDPyQDItHKDrQADeYEVgHLVgJSRnHUVfCQDy KWJhNWKuMKZpJOWnXMGbGEIzDEHqXOUtYGTmVXLzJRAuFBOpYAQzEGQyNTWcDMOlMGYcMDJwPF0KMTQq ICAgICAgICAgICAgICAgICAgICAgICAgICAgICAgIC AgICAgICAgICAgICAgICAgICAgICAgICAgICAgICAgICAgICAgICAgICAgICAgICAgICAgICAgICAgIC SrMRZqHM9BPUBrMKVqKCEiGHSuCSWiYIHdRGWgILYzUPTvEFXvQTVgRTEtIEXjGMHwBTWuHYFrJNYvYE AgICAgICAgICAgICAgICAgICAgICAgICAgICAgICAg XQVlRMAfFVGnKJGuPIXuRN8ONYQzVHPhYMQnWMHmYHHyVAFdLKUuBKDyXQSvAYIcLXQnIOZtUMSsVAIr QYVrUDDlVXMxUEOuEHDhZEJtEIGrQXGtKJXjAPXwTWHhCWEdOJXwIJTjTWGxJNGxNYMnCHPeSHBfWI0L ICAgICAgICAgICAgICAgICAgICAgICAgICAgICAgIC AgICAgICAgICAgICAgICAgICAgICAgICAgICAgICAgICAgICAgICAgICAgICAgICAgICAgICAgICAgIC TnHJUcRKElYE0CDRJdRSXxGBXlSMEeBBWeEULoWEWmUJEmPSNiUDEjFWTwMDEdHSOeWJQyUJFnIJBjFW AgICAgICAgICAgICAgICAgICAgICAgICAgICAgICAg FVBtXLLaVPXlSETbWZFhPANmYN9IIZPmACMaHPQgDVRwQHVwJXWeZGLuMOErBQPvEESrVGNsYPQtQNYy ICAgICAgICAgICAgICAgICAgICAgICAgICAgICAgICAgICAgICAgICAgICAgICAgICAgICAgICAgICAg AH5LVNYsUONvCGWeSYCyIEQcRJLxEMAdBYWvUWHgDB AgICAgICAgICAgICAgICAgICAgICAgICAgICAgICAgICAgICAgICAgICAgICAgICAgICAgICAgICAgIC JeAWXhZGDhSUByGB4IKD43rFMcd2U5OMKkNP7bvje/Ec1NNFckroRfdVInRZ5ZFkFkTA1waa3FGqDcGL 7jan4NBRoWJgIdP8O2oYAmDDCdYIEENtEjA23qPYbc Ay27YLpfOUBhTkQcIDr2Qh4DIdCnY3wjNMNbFnA7BUCyEuF8AJEeRmHfPQxqPS2Ks3LkvIRnFSg+Pg0K RB3jt1IbIBgrEpWaPV8muw8MOGcFBsOqK9KxxeJ5CFQ9BBMyKj2FMWUxEIBqzQOhChNfMBRUUzZsA8Ol cO63TZNOSu5+RHbfkeDySfyXAeJ8WJBan8IwSZf2AX 0JEJMaITp6mCAzL09sr7AwbWXuWbnrRSBsaAcaytLKQYWgI8JztjYeNMtWK7zoGGVnBc9iEp8mAXJxCB VwBcH1RCHWSZ9SIXRhAFOqmNYgAEAmFZERJU7LVFzrLGG6RDLoyoOmmYZvVJykJH3XIZFlytNkAOAyEK BSDQo+Ws7OVW2cw9IeGFawIQWwWY2qxi3KTPoXOqBq F2B7jLRaV8U3BJihFq1NDWEnWVDeSDQkHOGGQYrzCE5RJQ9tksG3FD0EsXYgKQGqPMVbmYTyAYv5J31t rTGvROxnJQ6SAJW+Chintan+Qg2XNNKdMKOdFNRzPiIcQCNPCwUpI2RcK8RQv7CdG1RwLI60nIlnaiCzSVmf QL6MRM5wELMbDUVRCE8PjRCtqB9mevHtTnJbMVMEQq GoD50fxEXqMAXlJVV2ALTdTd6GWAHvN4JrdnVkbEtavmFiMDHkNHAIBG6NCImzeqHlyLSbfKzhLI79vK prAV9HCw4EFbVjQP2soq7MaSGjEj8KIUApCV4LTUJbOKUcJDBdAII6LDNpLmKhBDynNCRfAYYdCQO8LC IgEXIhZT4IHnHqXJWwFEg3LvThHHLjJRCdao0ZZKQu GJCyZRT0NvLvCXItYORiDJxhHYHfBJYiUZX6KYGnRSGeGI2CIdXxJFPkVNK4ZSNdXOFePVGqgb3RWEXi XHLwUowbWJRsJJGuBCExZRtoQPPySHD3IeXdCHQgFEUtYO5JMxEsVKEyRNY0BclvJHJqWPAtxl6AJUIn VHYeNZx4EfVqONIrIQMcRPxyUXNsVRL9JZanMTQyBJ JfLB7HWcRdLMVbDPXmYbVsIWEgCVYjqi4ODCZvZWBaZiSrJpHwTGHdGKInURvwAFGySYO4TUL1LXEgIW JjMT8ASuVuSISmOCw4FXEvJDWfZOGsef2LXJUjEXVpYVGuTtWaFLMvVOKiCLpbDFAhMVJ6RGBsOSDhVD HmNW5XWiTjEZGqXVu5IlUsOHLwMOJhip9PGHDqCLNd VQM9WZQgZXYnLSWnOFs7joTcxOVcGSv1YL7SM8FgewPeKPiEJx9Wn505TUN2EAYsYg5AX2mnUn7wKCHb YKPPKb9AZVz6SEQ4VjBjCtEjFlPlVKOwEeTqWmD5AXXoFNKdTNJ9OjU+KBp7MDJ9D9NnG1ZzENYzORCj NXJsTTV1VLU0RDN9DMW8WF2hHHHOSl6+PDwtrXTmkTvkBHIIGid8SeJRZxPtMK0NTTj= ID Date Data Source [id number] [facility] Code Description Data Lisa rce(s) Supporting Document(s) Glucose [Mass/volume] in Capillary blood by Glucometer 210 mg/dL 70- 140 [facility] ID Date Data Source [id number] 04/11/2020 07:52:35 AM [facility] Value Range Interpretation Code Description Data Lisa rce(s) Supporting Document(s) Glucose [Mass/volume] in Capillary blood by Glucometer 193 mg/dL 70- 140 [facility] ID Date Data Source [id number] 04/10/2020 09:16:[address] [facility] Range Interpretation Code Description Data Lisa rce(s) Supporting Document(s) Glucose [Mass/volume] in Capillary blood by Glucometer 240 mg/dL 70- 140 [facility] ID Date Data Source [id number] 04/10/2020 05:23:08 PM [facility] Value Range Interpretation Code Description Data Lisa rce(s) Supporting Document(s) Glucose [Mass/volume] in Capillary blood by Glucometer 150 mg/dL 70- 140 [facility] ID Date Data Source [id number] 04/10/2020 12:19:26 PM [facility] Value Range Interpretation Code Description Data Lisa rce(s) Supporting Document(s) Glucose [Mass/volume] in Capillary blood by Glucometer 183 mg/dL 70- 140 [facility] ID Date Data Source [id number] 04/10/2020 10:48:03 AM [facility] Value Range Interpretation Code Description Data Lisa rce(s) Supporting Document(s) Consultation [facility] OAHZFe5eQuZRMyOu16/SLFnhFYClo5RtDQvnVPl3UGuhYVTsD6YqUJD2aH3fEWS1MYtCHvWqLiHrQgEf lbm [file] KpDcH1SPt+ZN5sZOu+Gh0Za3JboxR2wsNyWWv4CtlqAInuJSDJTh7O ID Date Data Source [id number] 04/10/2020 08:29:04 AM EDT [facility] Name Value Range Interpretation Code Description Data Lisa rce(s) Supporting Document(s) Glucose [Mass/volume] in Capillary blood by Glucometer 323 mg/dL 70- 140 [facility] ID Date Data Source [id number] 04/09/2020 09:38:18 PM [facility] Name Value Range Interpretation Code Description Data Lisa rce(s) Supporting Document(s) Glucose [Mass/volume] in Capillary blood by Glucometer 210 mg/dL 70- 140 [facility] ID Date Data Source [id number] 04/09/2020 05:13:28 PM [facility] Value Range Interpretation Code Description Data Lisa rce(s) Supporting Document(s) Glucose [Mass/volume] in Capillary blood by Glucometer 151 mg/dL 70- 140 [facility] ID Date Data Source [id number] 04/09/2020 12:15:08 PM [facility] Value Range Interpretation Code Description Data Lisa rce(s) Supporting Document(s) Glucose [Mass/volume] in Capillary blood by Glucometer 240 mg/dL 70- 140 [facility] ID Date Data Source [id number] [facility] Code Description Data Lisa rce(s) Supporting Document(s) Glucose [Mass/volume] in Capillary blood by Glucometer 204 mg/dL 70- 140 [facility] ID Date Data Source [id number] 04/08/2020 09:14:07 PM [facility] Value Range Interpretation Code Description Data Lisa rce(s) Supporting Document(s) Glucose [Mass/volume] in Capillary blood by Glucometer 216 mg/dL 70- 140 [facility] ID Date Data Source [id number] 04/08/2020 05:04:29 PM [facility] Value Range Interpretation Code Description Data Lisa rce(s) Supporting Document(s) Glucose [Mass/volume] in Capillary blood by Glucometer 158 mg/dL 70- 140 [facility] ID Date Data Source [id number] 04/08/2020 11:59:10 AM [facility] Value Range Interpretation Code Description Data Lisa rce(s) Supporting Document(s) Glucose [Mass/volume] in Capillary blood by Glucometer 184 mg/dL 70- 140 [facility] ID Date Data Source [id number] 04/08/2020 08:43:59 AM [facility] Value Range Interpretation Code Description Data Lisa rce(s) Supporting Document(s) [facility] OUEFUb1yMlCCAyXt62/MIEzkGFHwz1WqSAktIGr5JXrsDLOiV2JzOHK8qQ7lQBH6GHhAAyDaMnRiBcEy [facility] [file] therapeutic assistant/MTYOMJYkz2LWmO8NBbGnjx/3RH10TwzwlYQZBZTTNcSe2l/O0H2UR1t1cMUbign3zFAT1zRXqlPI [file] [id number] ID Date Data Source [id number] 04/[facility]2020 [facility]56[facility] Name Value Range Interpretation Code Description Data Lisa rce(s) Supporting Document(s) Glucose [Mass/volume] in Capillary blood by Glucometer 256 mg/dL 70- 140 [facility] ID Date Data Source [id number] 04/07/2020 09:54:04 PM [facility] Name Value Range Interpretation Code Description Data Lisa rce(s) Supporting Document(s) Glucose [Mass/volume] in Capillary blood by Glucometer 208 mg/dL 70- 140 [facility] ID Date Data Source [id number] 04/07/2020 07:56:07 PM [facility] FLUORO ART LOWER EXTREMITY-OR [id number] RESULTInterpreted by:Yoli Mcgowan, [facility]: 04/05/2020 1. Right femoral to anterior tibial artery bypass with non-reversed tunneled left great saphenous vein2. Adger of left great saphenous vein3. 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 POST PROCEDURE DIAGNOSIS: Ischemic rest pain and dry gangrene of the right foot SURGEON: Yoli Mcgowan MD DISPATCHER SERVICE OR WORK: Michelle Petersen MD, Yonis Jean MD ANESTHESIA: General HISTORY AND INDICATIONS: This is an 85-year-old man with dry gangrene and ischemic rest pain of the right foot. He now presents for surgical revascularization. The risks, benefits, and complications of the procedure were explained to the patient. He expressed understanding and agreed. Patient received 2 g cefazolin prior to beginning the procedure. PROCEDURE: The patient's bilateral lower extremities were prepped and draped in the usual sterile fashion. An oblique incision was then made on the patient's left groin. The left great saphenous vein was identified and isolated. A series of skip incisions were then made on the patient's left medial thigh and medial calf. The left lower extremity great saphenous vein was then harvested. The saphenofemoral junction was then oversewn with 5-0 Prolene. An incision was then made in the patient's proximal right medial thigh. The right superficial femoral artery was identified and isolated. An incision was then made in the patient's distal right anterior calf. The distal right anterior tibial artery w as identified and isolated. An incision was then made in the patient's right medial proximal calf. The right interosseous membrane was identified. A tunnel was then created between the medial calf incision and the right interosseous membrane. An incision was then made on the patient's right lateral calf. This completed the tunnel through the interosseous membrane. The patient was then given 8000 units of heparin. The right superficial femoral artery was clipped proximally and distally. An anastomosis between the non-reversed left great saphenous vein and the right superficial femoral artery was then created with running 5-0 Prolene. The vein was then treated with the UreSil valvulotome to remove all of the valves. The vein was then passed through the previously created anatomic tunnel. A tourniquet was then placed on the patient's proximal right calf. It was inflated to 250 mmHg. An anastomosis between the non- reversed tunneled left great saphenous vein and the distal right anterior tibial artery was then created with running 7-0 Prolene. It was flushed distally and proximally before completing it. Hemostasis was obtained. A completion arteriogram was then performed by injecting contrast into the proximal right superficial femoral artery. Multiple images of the right lower leg were obtained. The wounds were then irrigated. The wounds were closed with 2-0 Vicryl followed by 3-0 nylon. Sterile dressings were applied. There were no complications. Estimated blood loss 100 cc. All sponge needle and instrument counts were reported as correct at the end of the case. Electronically signed by Yoli Mcgowan MD04/05/2020 4:26 PMThis document has been electronically signed by Yoli Mcgowan MD on 04/07/2020 7:53 PM Name Value Range Interpretation Code Description Data Lisa rce(s) Supporting Document(s) ID Date Data Source [id number] 04/08/2020 12:19:55 AM [facility] Name Value Range Interpretation Code Description Data Lisa rce(s) Supporting Document(s) Glucose [Mass/volume] in Capillary blood by Glucometer 165 mg/dL 70- 140 [facility] ID Date Data Source [id number] 04/07/2020 12:07:46 PM [facility] Name Value Range Interpretation Code Description Data Lisa rce(s) Supporting Document(s) Glucose [Mass/volume] in Capillary blood by Glucometer 198 mg/dL 70- 140 [facility] ID Date Data Source [id number] 04/07/2020 08:19:21 AM [facility] Value Range Interpretation Code Description Data Lisa rce(s) Supporting Document(s) Glucose [Mass/volume] in Capillary blood by Glucometer 192 mg/dL 70- 140 [facility] ID Date Data Source [id number] 04/07/2020 06:25:11 AM [facility] Value Range Interpretation Code Description Data Lisa rce(s) Supporting Document(s) Leukocytes [#/volume] in Blood by Automated count 5.4 10*3/uL 4-10 [facility] Erythrocytes [#/volume] in Blood by Automated count 2.62 10*6/uL 4.6- 6.1 L [facility] Hemoglobin [Mass/volume] in Blood 8.0 g/dL 13.5-18 L [facility] Hematocrit [Volume Fraction] of Blood by Automated count 25.1 % 4 1-53 L [facility] Erythrocyte mean corpuscular volume [Entitic volume] by Auto mated count 95.6 fL 80-96 [facility] Erythrocyte mean corpuscular hemoglobin [Entitic mass] by Automated count 30.6 pg 27-33 [facility] Erythrocyte mean corpuscular hemoglobin concentration [Mass/volume] by Automated count 32.0 g/dL 32.0-[facility].0 [facility] width [Ratio] by Automated count 16.1 % 11.5-14.5 H [facility] Platelets [#/volume] in Blood by Automated count 183 10*3/uL 150-400 [facility] ID Date Data Source [id number] 04/07/2020 06:38:24 AM [facility] Value Range Interpretation Code Description Data Lisa rce(s) Supporting Document(s) Magnesium [Mass/volume] in Serum or Plasma 1.7 mg/dL 1.6-2.4 [facility] ID Date Data Source [id number] 04/07/2020 06:38:24 AM [facility] Value Range Interpretation Code Description Data Lisa rce(s) Supporting Document(s) Bicarbonate [Moles/volume] in Serum 23 mmol/L 22-29 [facility] Chloride [Moles/volume] in Serum or Plasma 101 mmol/L 98-107 [facility] Creatinine [Mass/volume] in Serum or Plasma 1.16 mg/dL 0.70-1.20 [facility] Glucose [Mass/volume] in Serum or Plasma 189 mg/dL 70-140 H [facility] Potassium [Moles/volume] in Serum or Plasma 4.4 mmol/L 3.4-5.1 [facility] Sodium [Moles/volume] in Serum or Plasma 134 mmol/L 136-145 L [facility] Urea nitrogen [Mass/volume] in Serum or Plasma 20 mg/dL 8-23 [facility] Anion gap 3 in Serum or Plasma 10 mmol/L 8-15 [facility] Osmolality of Serum or Plasma by calculation 286 mosm/kg 275-300 [facility] Creatinine/Urea nitrogen [Mass Ratio] in Serum or Plasma 17 [facility] Calcium [Mass/volume] in Serum or Plasma 7.7 mg/dL 8.8-10.2 L [facility] Glomerular filtration rate/1.73 sq M pre dicted among non-blacks [Volume Rate/Area] in Serum or Plasma by Creatinine-based formula (MDRD) >6 0 [facility] Glomerular filtration rate/1.73 sq M pre dicted among blacks [Volume Rate/Area] in Serum or Plasma by Creatinine-based formula (MDRD) >60 [facility] ID Date Data Source [id number] 04/07/2020 06:38:24 AM [facility] Value Range Interpretation Code Description Data Lisa rce(s) Supporting Document(s) Phosphate [Mass/volume] in Serum or Plasma 2.3 mg/dL 2.5-4.5 L [facility] ID Date Data Source [id number] 04/06/2020 10:43:41 PM [facility] Value Range Interpretation Code Description Data Lisa rce(s) Supporting Document(s) Glucose [Mass/volume] in Capillary blood by Glucometer 186 mg/dL 70- 140 [facility] ID Date Data Source [id number] 04/06/2020 06:52:08 PM EDT [facility] Name Value Range Interpretation Code Description Data Lisa rce(s) Supporting Document(s) [facility] KOTIRg1qNsWSZvNdi3CcQxQqQIMkZB5gumz3K4W5gMXaW7ZmzSYgy5svW2BrX9CjGQOjLGVQUC6GsHQg jb2 [file] AuID3Q9eTg8+1449Ox/vp of global marketing+MV7eVV4iIWdugMUQlobJ0/nv/60TX8n//qXXj+CdG/f//3//TPv8T/+X// 9Qf8/ffPf/8u/F//+m//41//zX/8T/0Xin42h//zX//df/xL/n4miT7/5Qr654/tuv/5n//7f7k//0j8 /fOf/jmLPv/+/fc//8u/7iGHeLrL4KW3xsARvM9Aor wXZULmBxAzVxMVc5NP8XqCVLmAQPPX9XoKmOqZW0RJ5oqXnZiAO1MR3dsLtLcUP2UT4wrGqIoBF1LK1i tIrVsKusBm9fTyxBr5aQnxBf4tgppVe1ssj5AnWktw6DsZ1yb7i7V1Jj/BkXd3sYw4Ry/SjNi1iGq3Jv /KfEb6eNv6Jm/CkIx0qQv7Mc/QxYp3sGc7yl/LkZf3 vBx5ec/YD1nAYyYmCY9BNu6vahSqPb2AZfUyEpRKHl9VHlIfPnDMGs2JDpTVK7Tx7YvZ4xjrQzVe5IoP 0LA2ElJ1iL5GIH8i6xKK9+m5BmC5x55Ssg5wQz6llC8eEq/Z81rIa/O3CePiEw+AqXbWxxKh2oBifJq4 zPorTa0pkdsVq41Px5+e10Zeu+l4wluwgC0kiNscJ5 terrwAYxiadPME6avj9WF0Vro29w/7crsx/0zKE27dx24025Rb3/Zcm983w86+3l4Gs3TFpc982M94+b bNA4tKHj824Hm11kynhjCY/lXD9iRZN92OtYrjmEEHkzQDPlR/AeEToM1l9qHZhdtvenOLhtiRlntuZe XaLp9OUt6a/eRJWSI/hrPwURHAkDbcixvtS7M8qN87 BqFc0nNCoYHNdlMBBBOFd8OZirXKf8zshbmyPWpG0AguFKWW/LyQcGwHM3AabCpea0wLngY+FItQssiP ZhGKFvlRLULZIj+9NYmb2Ng3WAES/GgXoXiRH/UilC/yo1+EAkZ+FIxQwsiPhhGKGPlRMUIZI/6fPScQ /MmTUkZ+eDfGcPrPmdLPPqmZF4OBDf+EExdv6AqSQN WN/GqhkibHA87fRDPAw71WiNDJ4yxFxmpbX9Z9vM65JqQ92iSroGDUooVMAYOUe2dVocy38KfGmXS/Sk sycaKC7vnVluqqWwDeuN+3IfA62qO6aIXCpwQZQCBNf+oRed815Q1E5EP/ykcofeRH+wjFj/nuM8U8mR /3VgSE1hXAsXISqoJXGQBTaodQfqE32LYMAWM/Skgo fiDQEyoQkDujOaUjuh43uNVB+qOHlHpIf/SQUg/zes1M8wJ95CVZUlB/ekiph/IHFbz0dJ0yUgLt5n96 pNRD+qOHlHpIf/SQUg/iae0B9kD33MVWYlT/ekiph/EQYou6gE0fGzGy9x8/haa9df3Ce1q+M4+mmTQ/ fMpq8tezjTuQa0SWsIwbz4aXPk6rAyXxbzDHCb/pjx 7K3rT22EGUOyI/ekiph/RTClj4mG9mRzWv8s34mZTU+qOHlHpIf/SQUg/qvm0H3jU04MJVVsM/ekiph/ KLLnp3mZ5iRkZw7s25vOBA+qOHlHpIf/SQUg/nzp4K2qX78MUUPhF/ekiph/LROkt4pP5kPqXd3d59hM RD+qOHlHpIf/SQUg/kkl5E3iH74KYIVtC/ekiph/RH Pvc5jM4jWvMj7c26sHSJ+qOHlHpIf/SQUg/gxm5M7dF18NZ8lLNW+yToZTSTPGcCJqN3ks7vyg+iRJTI XVZXIWHt7tGmFLGN9sOTA8gLKq2yLbL8KUUzwZ0iWuY7LIFtdB7rUyZ6KAWwlF9sOsZ3IFXphN2mMvI9 gRlS3tKaD2vIoY8lU2Q+xnyM+RjzMeZjzMeYjzEfYz 2BhIx6VEXz2uXXd6dJPb4gMh86qZd467aWhkCfTm4XeFd4XWZQ8vHWH7gQSM0hEfR7zayX3jknP8aqrV 8wn2A+wXyC+AvdZ0vATK3P+QfvY8pZNY7N+XsgW8bWMY6K+OsnN0wPIS8W+Pvxs6vRYz0G+Ofyq7hNZt 6L+Nncu0kESr4X+Efsv1xWDi5W+Lkfa8dJTb9s+Wzm b0dRXm3c+Drtl6aFYm6s+Zvmb9jFJj3s+aTN/L01PU/YtVMbkNHl2AZieLKRM+DMa1uCv42mf4Cvcvyt 2Br212ldVp0/hhkWq46ryyJwp8btdPgx2SwiU8k3qqgCtYNPR340xCqM9IU4JITNRCbONYX1gEQWHL0Y CQFD7oOOKBYgPKcGbuMPfST6HGGWZHiSW9A4xGIOCU 5ZCAHU4eLZGOMkNGVNxaWUlPO7WDDTPEiIAbA9sYXzDR9zDJVK5gNNEQDbMRWQamoMACM6hJKNNJcBUw [file] [id number] ID Date Data Source [id number] 04/06/2020 05:37:25 PM EDT [facility] Value Range Interpretation Code Description Data Lisa rce(s) Supporting Document(s) Glucose [Mass/volume] in Capillary blood by Glucometer 193 mg/dL 70- 140 H [facility] ID Date Data Source [id number] 04/06/2020 12:08:32 PM EDT [facility] Value Range Interpretation Code Description Data Lisa rce(s) Supporting Document(s) Glucose [Mass/volume] in Capillary blood by Glucometer 185 mg/dL 70- 140 H [facility] ID Date Data Source [id number] 04/06/2020 12:29:31 PM EDT [facility] Value Range Interpretation Code Description Data Lisa rce(s) Supporting Document(s) Troponin T.cardiac [Mass/volume] in Serum or Plasma 0.06 ng/mL <0.01 H [facility] ID Date Data Source [id number] 04/06/2020 08:14:33 AM EDT [facility] Value Range Interpretation Code Description Data Lisa rce(s) Supporting Document(s) Glucose [Mass/volume] in Capillary blood by Glucometer 145 mg/dL 70- 140 H [facility] ID Date Data Source [id number] 04/06/2020 06:44:32 AM [facility] Name Value Range Interpretation Code Description Data Lisa rce(s) Supporting Document(s) Leukocytes [#/volume] in Blood by Automated count 5.2 10*3/uL 4-10 [facility] Erythrocytes [#/volume] in Blood by Automated count 2.70 10*6/uL 4.6- 6.1 L [facility] Hemoglobin [Mass/volume] in Blood 8.5 g/dL 13.5-18 L [facility] Hematocrit [Volume Fraction] of Blood by Automated count 25.7 % 4 1-53 L [facility] Erythrocyte mean corpuscular volume [Entitic volume] by Auto mated count 95.4 fL 80-96 [facility] Erythrocyte mean corpuscular hemoglobin [Entitic mass] by Automated count 31.3 pg 27-33 [facility] Erythrocyte mean corpuscular hemoglobin concentration [Mass/volume] by Automated count 32.9 g/dL 32.0-36.0 [facility] width [Ratio] by Automated count 16.3 % 11.5-14.5 H [facility] Platelets [#/volume] in Blood by Automated count 187 10*3/uL 150-400 [facility] ID Date Data Source [id number] 04/06/2020 07:07:47 AM [facility] Name Value Range Interpretation Code Description Data Lisa rce(s) Supporting Document(s) Bicarbonate [Moles/volume] in Serum 24 mmol/L 22-29 [facility] Chloride [Moles/volume] in Serum or Plasma 102 mmol/L 98-107 [facility] Creatinine [Mass/volume] in Serum or Plasma 1.00 mg/dL 0.70-1.20 [facility] Glucose [Mass/volume] in Serum or Plasma 161 mg/dL 70-140 H [facility] Potassium [Moles/volume] in Serum or Plasma 4.4 mmol/L 3.4-5.1 [facility] Sodium [Moles/volume] in Serum or Plasma 136 mmol/L 136-145 [facility] Urea nitrogen [Mass/volume] in Serum or Plasma 17 mg/dL 8- [facility] Anion gap 3 in Serum or Plasma 10 mmol/L 8-15 [facility] Osmolality of Serum or Plasma by calculation 287 mosm/kg 275-300 [facility] Creatinine/Urea nitrogen [Mass Ratio] in Serum or Plasma 17 [facility] Calcium [Mass/volume] in Serum or Plasma 7.7 mg/dL 8.8-10.2 L [facility] Glomerular filtration rate/1.73 sq M pre dicted among non-blacks [Volume Rate/Area] in Serum or Plasma by Creatinine-based formula (MDRD) >6 0 [facility] Glomerular filtration rate/1.73 sq M pre dicted among blacks [Volume Rate/Area] in Serum or Plasma by Creatinine-based formula (MDRD) >60 [facility] ID Date Data Source [id number] 04/06/2020 07:07:47 AM [facility] Value Range Interpretation Code Description Data Lisa rce(s) Supporting Document(s) Magnesium [Mass/volume] in Serum or Plasma 1.6 mg/dL 1.6-2.4 [facility] ID Date Data Source [id number] 04/06/2020 07:07:47 AM [facility] Value Range Interpretation Code Description Data Lisa rce(s) Supporting Document(s) Phosphate [Mass/volume] in Serum or Plasma 2.7 mg/dL 2.5-4.5 [facility] ID Date Data Source [id number] 04/06/2020 01:19:57 AM [facility] Value Range Interpretation Code Description Data Lisa rce(s) Supporting Document(s) Troponin T.cardiac [Mass/volume] in Serum or Plasma 0.04 ng/mL <0.01 H [facility] ID Date Data Source [id number] 04/05/2020 10:33:35 PM [facility] Value Range Interpretation Code Description Data Lisa rce(s) Supporting Document(s) Glucose [Mass/volume] in Capillary blood by Glucometer 210 mg/dL 70- 140 H [facility] ID Date Data Source [id number] 04/05/2020 06:27:19 PM [facility] Value Range Interpretation Code Description Data Ilsa rce(s) Supporting Document(s) Glucose [Mass/volume] in Capillary blood by Glucometer 233 mg/dL 70- 140 H [facility] ID Date Data Source [id number] 04/05/2020 06:56:15 PM EDT [facility] Name Value Range Interpretation Code Description Data Lisa rce(s) Supporting Document(s) Troponin T.cardiac [Mass/volume] in Serum or Plasma 0.03 ng/mL <0.01 H [facility] ID Date Data Source [id number] [facility] Value Range Interpretation Code Description Data Lisa rce(s) Supporting Document(s) Operative Note [facility] [id number] lbm [file] == ID Date Data Source [id number] 04/05/2020 01:33:05 PM EDT [facility] Name Value Range Interpretation Code Description Data Lisa rce(s) Supporting Document(s) pH of Arterial blood 7.35 7.38-7.44 L [facility] Carbon dioxide [Partial pressure] in Arterial blood 44 mmHg 35-40 H [facility] Oxygen [Partial pressure] in Arterial blood 200 mmHg 95-100 H [facility] Base excess standard in Arterial blood by calculation [facility] Oxygen saturation Calculated from oxygen partial press ure in Arterial blood 100 % 94-100 [facility] Bicarbonate [Moles/volume] in Arterial blood 26 mmol/L [facility] Sodium [Moles/volume] in Blood 136 mmol/L 136-145 [facility] Potassium [Moles/volume] in Blood 4.7 mmol/L 3.4-5.1 [facility] Calcium.ionized [Moles/volume] in Blood 1.15 mmol/L 1.13-1.32 [facility] Glucose [Mass/volume] in Blood 222 mg/dL 70-140 H [facility] Hematocrit [Volume Fraction] of Blood 29 % 41-53 L [facility] Hemoglobin [Mass/volume] in Blood by calculation 9.9 g/dL 13.5-18.0 [facility] ID Date Data Source [id number] 04/05/2020 01:33:05 PM [facility] Value Range Interpretation Code Description Data Lisa rce(s) Supporting Document(s) Kaolin activated time [Units/volume] in Blood 197 s [facility] ID Date Data Source [id number] 04/05/2020 01:07:04 PM [facility] Value Range Interpretation Code Description Data Lisa rce(s) Supporting Document(s) Kaolin activated time [Units/volume] in Blood 197 s [facility] ID Date Data Source [id number] 04/05/2020 07:49:19 AM [facility] Value Range Interpretation Code Description Data Lisa rce(s) Supporting Document(s) Glucose [Mass/volume] in Capillary blood by Glucometer 164 mg/dL 70- 140 [facility] ID Date Data Source [id number] 04/05/2020 03:08:47 AM [facility] Value Range Interpretation Code Description Data Lisa rce(s) Supporting Document(s) Leukocytes [#/volume] in Blood by Automated count 6.4 10*3/uL 4-10 [facility] Erythrocytes [#/volume] in Blood by Automated count 3.25 10*6/uL 4.6- 6.1 [facility] Hemoglobin [Mass/volume] in Blood 10.0 g/dL 13.5-18 [facility] Hematocrit [Volume Fraction] of Blood by Automated count 31.0 % 4 1-53 [facility] Erythrocyte mean corpuscular volume [Entitic volume] by Auto mated count 95.2 fL 80-96 [facility] Erythrocyte mean corpuscular hemoglobin [Entitic mass] by Automated count 30.9 pg 27-33 [facility] Erythrocyte mean corpuscular hemoglobin concentration [Mass/volume] by Automated count 32.4 g/dL 32.0-36.0 [facility] al Erythrocyte distribution width [Ratio] by Automated count 16.1 % 11.5-14.5 [facility] Platelets [#/volume] in Blood by Automated count 224 10*3/uL 150-400 [facility] Differential cell count method - Blood [facility] Neutrophils/100 leukocytes in Blood by Automated count 65 % [facility] Lymphocytes/100 leukocytes in Blood by Automated count 21 % [facility] Monocytes/100 leukocytes in Blood by Automated count 12 % [facility] Eosinophils/100 leukocytes in Blood by Automated count 2 % [facility] Basophils/100 leukocytes in Blood by Automated count 0 % [facility] Neutrophils [#/volume] in Blood by Automated count 4.13 10*3/uL 1.8-7 .0 [facility] Lymphocytes [#/volume] in Blood by Automated count 1.33 10*3/uL 1.2-4 .0 [facility] Monocytes [#/volume] in Blood by Automated count 0.79 10*3/uL 0-0.8 [facility] Eosinophils [#/volume] in Blood by Automated count 0.15 10*3/uL 0-0.5 [facility] Basophils [#/volume] in Blood by Automated count 0.02 10*3/uL 0-0.2 [facility] Nucleated erythrocytes/100 leukocytes [Ratio] in Blood by Automated count 0 /100{WBCs} 0-0 [facility] ID Date Data Source [id number] 04/05/2020 03:35:[address] [facility] Name Value Range Interpretation Code Description Data Lisa rce(s) Supporting Document(s) Bicarbonate [Moles/volume] in Serum 23 mmol/L 22-29 [facility] Chloride [Moles/volume] in Serum or Plasma 100 mmol/L 98-107 [facility] Creatinine [Mass/volume] in Serum or Plasma 1.21 mg/dL 0.70-1.20 H [facility] Glucose [Mass/volume] in Serum or Plasma 167 mg/dL 70-140 H [facility] Potassium [Moles/volume] in Serum or Plasma 4.7 mmol/L 3.4-5.1 [facility] Sodium [Moles/volume] in Serum or Plasma 137 mmol/L 136-145 [facility] Urea nitrogen [Mass/volume] in Serum or Plasma 24 mg/dL 8-23 H [facility] Anion gap 3 in Serum or Plasma 14 mmol/L 8-15 [facility] Osmolality of Serum or Plasma by calculation 291 mosm/kg 275-300 [facility] Creatinine/Urea nitrogen [Mass Ratio] in Serum or Plasma 20 [facility] Calcium [Mass/volume] in Serum or Plasma 8.8 mg/dL 8.8-10.2 [facility] Glomerular filtration rate/1.73 sq M pre dicted among non-blacks [Volume Rate/Area] in Serum or Plasma by Creatinine-based formula (MDRD) >6 0 [facility] Glomerular filtration rate/1.73 sq M pre dicted among blacks [Volume Rate/Area] in Serum or Plasma by Creatinine-based formula (MDRD) >60 [facility] ID Date Data Source [id number] 04/05/2020 03:35:00 AM [facility] Value Range Interpretation Code Description Data Lisa rce(s) Supporting Document(s) Magnesium [Mass/volume] in Serum or Plasma 1.8 mg/dL 1.6-2.4 [facility] ID Date Data Source [id number] 04/05/2020 03:35:00 AM [facility] Value Range Interpretation Code Description Data Lisa rce(s) Supporting Document(s) Phosphate [Mass/volume] in Serum or Plasma 3.2 mg/dL 2.5-4.5 [facility] ID Date Data Source [id number] 04/04/2020 08:47:27 PM [facility] Value Range Interpretation Code Description Data Lisa rce(s) Supporting Document(s) Glucose [Mass/volume] in Capillary blood by Glucometer 215 mg/dL 70- 140 H [facility] ID Date Data Source [id number] 04/04/2020 05:25:05 PM [facility] Value Range Interpretation Code Description Data Lisa rce(s) Supporting Document(s) Glucose [Mass/volume] in Capillary blood by Glucometer 133 mg/dL 70- 140 [facility] ID Date Data Source [id number] 04/04/2020 02:55:39 PM [facility] Value Range Interpretation Code Description Data Lisa rce(s) Supporting Document(s) [facility] [id number]rT4eJOD4LXtGNvYmOgWwBdN1 [facility] [file] [id number]= ID Date Data Source [id number] 04/06/2020 06:54:50 AM EDT [facility] Value Range Interpretation Code Description Data Lisa rce(s) Supporting Document(s) ABO and Rh group [Type] in Blood [facility] Blood group antibody screen [Presence] in Serum or Plasma [facility] 04/07/2020,0000[facility] ID Date Data Source [id number] 04/04/2020 11:55:23 AM [facility] Value Range Interpretation Code Description Data Lisa rce(s) Supporting Document(s) Glucose [Mass/volume] in Capillary blood by Glucometer 186 mg/dL 70- 140 H [facility] ID Date Data Source [id number] 04/04/2020 07:48:48 AM [facility] Value Range Interpretation Code Description Data Lisa rce(s) Supporting Document(s) Glucose [Mass/volume] in Capillary blood by Glucometer 155 mg/dL 70- 140 H [facility] ID Date Data Source [id number] [facility] Code Description Data Lisa rce(s) Supporting Document(s) ABO and Rh group [Type] in Blood [facility] Blood bank comment [facility] ID Date Data Source [id number] 04/04/2020 03:56[facility] Code Description Data Lisa rce(s) Supporting Document(s) Leukocytes [#/volume] in Blood by Automated count 6.7 10*3/uL 4-10 [facility] Erythrocytes [#/volume] in Blood by Automated count 3.22 10*6/uL 4.6- 6.1 L [facility] Hemoglobin [Mass/volume] in Blood 10.0 g/dL 13.5-18 L [facility] Hematocrit [Volume Fraction] of Blood by Automated count 30.5 % 4 1-53 L [facility] Erythrocyte mean corpuscular volume [Entitic volume] by Auto mated count 94.6 fL 80-96 [facility] Erythrocyte mean corpuscular hemoglobin [Entitic mass] by Automated count 31.1 pg 27-33 [facility] Erythrocyte mean corpuscular hemoglobin concentration [Mass/volume] by Automated count 32.8 g/dL 32.0-36.0 [facility] width [Ratio] by Automated count 16.0 % 11.5-14.5 H [facility] Platelets [#/volume] in Blood by Automated count 214 10*3/uL 150-400 [facility] Differential cell count method - Blood [facility] Neutrophils/100 leukocytes in Blood by Automated count 66 % [facility] Lymphocytes/100 leukocytes in Blood by Automated count 22 % [facility] Monocytes/100 leukocytes in Blood by Automated count 9 % [facility] Eosinophils/100 leukocytes in Blood by Automated count 3 % [facility] Basophils/100 leukocytes in Blood by Automated count 0 % [facility] Neutrophils [#/volume] in Blood by Automated count 4.42 10*3/uL 1.8-7 .0 [facility] Lymphocytes [#/volume] in Blood by Automated count 1.45 10*3/uL 1.2-4 .0 [facility] Monocytes [#/volume] in Blood by Automated count 0.60 10*3/uL 0-0.8 [facility] Eosinophils [#/volume] in Blood by Automated count 0.20 10*3/uL 0-0.5 [facility] Basophils [#/volume] in Blood by Automated count 0.03 10*3/uL 0-0.2 [facility] Nucleated erythrocytes/100 leukocytes [Ratio] in Blood by Automated count 0 /100{WBCs} 0-0 [facility] ID Date Data Source [id number] 04/04/2020 04:12:[address] [facility] Name Value Range Interpretation Code Description Data Lisa rce(s) Supporting Document(s) Bicarbonate [Moles/volume] in Serum 25 mmol/L 22-29 [facility] Chloride [Moles/volume] in Serum or Plasma 105 mmol/L 98-107 [facility] Creatinine [Mass/volume] in Serum or Plasma 1.06 mg/dL 0.70-1.20 [facility] Glucose [Mass/volume] in Serum or Plasma 140 mg/dL 70-140 [facility] Potassium [Moles/volume] in Serum or Plasma 4.6 mmol/L 3.4-5.1 [facility] Sodium [Moles/volume] in Serum or Plasma 138 mmol/L 136-145 [facility] Urea nitrogen [Mass/volume] in Serum or Plasma 20 mg/dL 8-23 [facility] Anion gap 3 in Serum or Plasma 9 mmol/L 8-15 [facility] Osmolality of Serum or Plasma by calculation 291 mosm/kg 275-300 [facility] Creatinine/Urea nitrogen [Mass Ratio] in Serum or Plasma 19 [facility] Calcium [Mass/volume] in Serum or Plasma 8.7 mg/dL 8.8-10.2 L [facility] Glomerular filtration rate/1.73 sq M pre dicted among non-blacks [Volume Rate/Area] in Serum or Plasma by Creatinine-based formula (MDRD) >6 0 [facility] Glomerular filtration rate/1.73 sq M pre dicted among blacks [Volume Rate/Area] in Serum or Plasma by Creatinine-based formula (MDRD) >60 [facility] ID Date Data Source [id number] 04/04/2020 04:12:30 AM [facility] Name Value Range Interpretation Code Description Data Lisa rce(s) Supporting Document(s) Magnesium [Mass/volume] in Serum or Plasma 1.9 mg/dL 1.6-2.4 [facility] ID Date Data Source [id number] 04/04/2020 04:12:30 AM [facility] Value Range Interpretation Code Description Data Lisa rce(s) Supporting Document(s) Phosphate [Mass/volume] in Serum or Plasma 3.1 mg/dL 2.5-4.5 [facility] ID Date Data Source [id number] 04/03/2020 10:04:14 PM [facility] Value Range Interpretation Code Description Data Lisa rce(s) Supporting Document(s) [facility] KMXBGh6tTwPVMyHg61/RDVmtPVPdf7RvHXrnJFw8UXsrGQAkK4UlTKS0fL3tKUM4ARiSBgHvCkRiFqR2 lbm [file] Grill Attendant+KqXTOPGC1kJn7jShXCrQUQgJk9rGg0bbjjstXpF [file] Quantitative Strategy Analyst+Q7FHSw21gALjVjd0iFom0Lx3iOumd0VdVkjVVxP [file] AgICAgICAgICAgICAgICAgICAgICAgICAgICAgICAg ICAgICAgICAgICAgICAgICAgICAgICAgICAgICAgICAgICAgICAgICAgDQogICAgICAgICAgICAgICAg ICAgICAgICAgICAgICAgICAgICAgICAgICAgICAgICAgICAgICAgICAgICAgICAgICAgICAgICAgICAg ICAgICAgICAgICAgICAgICAgICAgICAgDQogICAgIC AgICAgICAgICAgICAgICAgICAgICAgICAgICAgICAgICAgICAgICAgICAgICAgICAgICAgICAgICAgIC AgICAgICAgICAgICAgICAgICAgICAgICAgICAgICAgICAgDQogICAgICAgICAgICAgICAgICAgICAgIC AgICAgICAgICAgICAgICAgICAgICAgICAgICAgICAg ICAgICAgICAgICAgICAgICAgICAgICAgICAgICAgICAgICAgICAgICAgICAgDQogICAgICAgICAgICAg ICAgICAgICAgICAgICAgICAgICAgICAgICAgICAgICAgICAgICAgICAgICAgICAgICAgICAgICAgICAg ICAgICAgICAgICAgICAgICAgICAgICAgICAgDQogIC AgICAgICAgICAgICAgICAgICAgICAgICAgICAgICAgICAgICAgICAgICAgICAgICAgICAgICAgICAgIC AgICAgICAgICAgICAgICAgICAgICAgICAgICAgICAgICAgICAgDQogICAgICAgICAgICAgICAgICAgIC AgICAgICAgICAgICAgICAgICAgICAgICAgICAgICAg ICAgICAgICAgICAgICAgICAgICAgICAgICAgICAgICAgICAgICAgICAgICAgICAgDQogICAgICAgICAg ICAgICAgICAgICAgICAgICAgICAgICAgICAgICAgICAgICAgICAgICAgICAgICAgICAgICAgICAgICAg ICAgICAgICAgICAgICAgICAgICAgICAgICAgICAgDQ ogICAgICAgICAgICAgICAgICAgICAgICAgICAgICAgICAgICAgICAgICAgICAgICAgICAgICAgICAgIC AgICAgICAgICAgICAgICAgICAgICAgICAgICAgICAgICAgICAgICAgDQogICAgICAgICAgICAgICAgIC AgICAgICAgICAgICAgICAgICAgICAgICAgICAgICAg YCDjPNSmCTRmCDNnGIHuBIHyZDLxYWSrFMNwNFMyWAAdKRGfNVQxXVRyBQJgLRTcVGGeQEm8X5iaSOMk DPGvRQ2jQId6Tc7+MUcGNlWfYCN6keItmT9FUP2ow7VaRQaaSIVhx5ByASt1XB7JWEQrJTecCT7WJVad ve8QDXScMSHecZYOx3zgPbGlXEM5CLPmQomsLN4VBJ XfN5lbaeYaUDZhDBTWPJolVAAJEFwdHJGXEMJvMHTtQaKmBfVwVAGoANTdDOXHRD9FKeGvQ9UjmC69HI YNCj4+MBtellIcUjhXWgH8GSJcb6GrFDl2KY6YRSQvWzzvq4HfYQLtBQVSYGsdMP7RGVZ9NZE3UMAkEw 8XIEYmN859htCbLI1THk0ITxHwKZ0hpo8DCHRzTMRa NsmBZbi3DFgbWO1TbJBuUPyJn06hpNl2dqMywZIBvsXwLE4nZSXzMxdsJITKDyVjmXT3FbO8MgPjNuLm HDz3TBNuMN4aCQuhEW7HFUO3AZdcJLZqUCErI3rFEwUaPNEuLkKmqZxzWK9VFeXaO6TafpGifXR8FTLj IFINCj4+SXfdgkJcUyfQYeT0DNCam8YlZNp4TH1CUH VcINqoKE6LLPTkgE3vNPgcUT4NGdR0DlRuNEFFXfZfE00oeBCkNQa6C9LwXbYhZXZnIjmjWTIrSIpvGq FtZXMgWyBdDQogID4+ID4+HJnjGL8RZHpvquQbFKZhLb9VXNCrEIVhYS2yMCEuTUTcH7K1rXbmPIPKKd ApC3dbyqbxRV2jXQZyI768aOfeipBqPCB3GDRvSq5X ORJoLNN2YIHmkULqZGDvTXEUEEkfAG4YxUVxEFY2dN6gKCohMPAhMBFqL3iPKjZruBqkZW46bPecllIf bCBdDQo+Wl2TKO4je8FvMIw7fdYcPBbkDCT6NEgaHZDqXUMqJADrTWC8PSM2TZTWGxNkFSUoZRHxXTje XVUzLBEfrr9STHFgABQjSZHaPWXgWGEbAZVcKMxlNM ErNxT0MYQ7JDPgGLTdKQ7ABiUuXWPxXMTaBQdbVQEdYRRhyc4MUSYwVTOcZSV3QRDmTKViSFKwEOldGQ BdFHO6Mif1AEAuNKCcCE3BPuQiRSUhURb2UvMjGZJmNJZnkf6VBULqMLErBmtaWoZtYAGmBNPcCUozGI DzEMCrIDScKAQkHQImXI4TGiQgCHBwKHSqUPahQUNc AWZzph0OACTpQKGbMcFqANPxGXEjHMJcFPmgZNXfMPQzYyQ7MTWnSWKuBB8AKoTjGTQcYTR5YAUoIJQn IXAntu4AOCOhOUFzWJMdXhCeDUHcCZUlCKtuLRSfYPC9EHI6NFHoDRQpAI3BZbMkZPNgPWjbGlNcERUe LQBpxr0HTGLoLYNzSXE6HLPwINQjVFBbBYusYPUrLB B7TDneLTXxQMQdOA1BMqRsCUJkFCs9LuQvEPJuHRJwtn0XTBHjFRQkPCAjOGNfYKKaAUOpIImrOPSaAA FfSRD4LUPsWTKhUB2DKlRgGBJxPtWhGpRxNSAoXQUtwn1FXMLvFOKqKMh2BJXfHFAmOLKbNSmyZTTiMV TlZJe6RIPfIMKzFD1ECdPdFDTnPnHqUmvvCVAwUPPf ok6UIMFsUOR7HKG8BZZiDGQzXUOjJYixDIRzFVCbLTY4NUWkBWBfQT3EOiIfOGLrATHgGjVtXGMrEOJh vr2DDVSlVOX6VZwxFkNsRYUyLKQaYYfaZQDhPJRkBUs4YSWgWPOlFH4MJwOoFTFwGJLhFgCnQZNhWZGe nn4KNTUiZLG6FpLvXEHlOCRwRADiTWdhVFKjVIWqRc k5XYMwJNFuAY3UOrNsREDvLBmfPVZuZKDuENVyoa0BRFSxLZE4QxS0XoGeNYBkEQBvRYpaYXKgPMZ3Sh g9YMBwHFLrKT2UQvUoJFGdMJxbAwXsBSQyYHObmn2NYQWlEWN5CKC5FFUsHDYbASLlLMhrYRPcJTL9Fo Q5AXFcOPZnDJ4WYhSdJXZgUhC8TBadFGIwQAKagv4P ZINeMTQ9EuKpAHLlIUFdNVByCCfkKESbCzZ6DUsmSFLzXZTmFM1EWuUjRLCaYNAzSNjlAFJiFMVyyo6T LBKyDXRlJwI4APQwQCUbDSFlEVwjXSPhWqT8YoN0SEWnLTUaDK3XYmEdUQOeESI5FRBvWZTuPRTmex5T fEEfbNwcxl3UCKvVVs6BqLawBYI0MDtvGw1nzWL2Cv TbUPRFQn1WpjFdCBVgHTURENkvLOGdAAM1W7HcDeNrUgG1JQWsHGZjIOP3HRMlSZJ8TIF2AYDuKuP8Ja IdHeOuGaAuDap8MOI2OTUnQCiyJKR3JAS1LnwhHQY+IM3tYYr+Vt3Sq2CobpS0blTzTYlvFXjcLnWBVy AwMJ2BOCh= ID Date Data Source [id number] 04/03/2020 08:06:12 PM EDT [facility] Name Value Range Interpretation Code Description Data Lisa rce(s) Supporting Document(s) Glucose [Mass/volume] in Capillary blood by Glucometer 177 mg/dL 70- 140 H [facility] ID Date Data Source [id number] 04/03/2020 05:10:50 PM EDT [facility] Value Range Interpretation Code Description Data Lisa rce(s) Supporting Document(s) Glucose [Mass/volume] in Capillary blood by Glucometer 122 mg/dL 70- 140 [facility] ID Date Data Source [id number] 04/03/2020 01:09:35 PM EDT [facility] Name Value Range Interpretation Code Description Data Lisa rce(s) Supporting Document(s) ED Provider Note [facility] FKUIYq7rXeXUOrBi07/GYBuiBETgu8LtUPtbVFs7WCyqXMVmU6AqSEO8pT7jNCI3FElEDqYpAeNeJcB7 lbm [file] YfNJMvHKHmjSQfTHq7T12fsECeQGzfXO0TFRB+Chintan+Yf0ZOWTmWOQcXTVjZiVfZSMPCcAhB8QcX5HEw7 OuN2KzKN15zNippxZkMZttUI3PZV3zUZXqOEVSMB4IhTMzcH5kkbK5NVNaQCLRCkMeF14gpAUaOBOhYO L8MXUzDo9KGKWuW7ArjmOyqTuvspGkDKGbXBFWOA3P MDvzkpDeqLMyqMshVV54pCjwAY6MZd1YEaWpFK5qqe4GkFXpPi2LHCZ9CM4EDJMoCKFkMDVkUXG3FSBf YpEySSiiRAYfFNEgDNR5LTBgCUCfKW5SGpWkLRAmCZuzGvtmDZZuWMNuei5ZLMQuNYG8OYMbUMBjVCOl GIEhNNdpPWXsLVQkZEU5WURbLWUvZI0WYdRePRMyXH N6EtsyGTOzJBMnfz4MWTOxFFNfXqS8MIYiORJxRMShVMkcRLIoFJT2NaBdTULgPQRbUB3COoIiPADnEK E9UXtiUFRgPCJzmx3FEFVtICElBNH6HJSwUVEhUJMrIPqnNYDxONQ3Mhu0IZXvYXLiYK6DAcCuJGJsOJ DuZIYaLRFzWVVwfj5KJGNhRDOgUINeAkHwNOFfTFCo IUiqZAJjGHL9JUxhKDSvMLDeGD8IQcGsOYTrVUY9AKusBJHuPTIztl1YSAOiXUOaJpA9MSEeTUZxPCEi QYxpQEWnYYI8FrZ1BAKnKBDoLJ0XRhEzMGNvJcJyUMgiJIEuEBRclf8ZPYVoZMTpUJV5MVSgBWSaENZj THedGLYsAFSvPkV1YNOrPFBkRU5SGjXfVLAvQzB4Jf YsGSJtHTIzzr7BOKNaAGLhANxbOGNqHBEkFPQjSNcmJWJzZTI1MWQ0MPRaOCKlUV8KDuEyXXYoYdH1Uk FpBFJdPFFcio3UWKJfXWYfXuS3HaBiHTRvVTYgRDbePYAzWGP3DbU3WQUmARAdKN9WRuIaIQInVjzoDA LcGCEePRZnow5ORBTrFGGhOXCyVlWdJHNaKYPnIWva KKFmQLD4StA7EZHrEIPtQY0XJhHhDLSkTeg1TuTsZXAiUUBzla1DUGNhIVRuBRt4CNHzDOZkBRMeBSyl KAPfEDRaXFH3JWQqVKTwQY9DHaOcZVSnSSS9WnovTUHiYBClse7ATRPxVKQ0NUb0CoHtFBRhDBJzFEur NURsAYZpKYY0QKCaWXHeLZ1ODgThVNSpPAClRTHpXJ YnNARovg0VGWVlQNN0GuT0JZOmILDuVWLfPWxjQTKjYZGmDdApTUNnUSSoSF3FQcMiZZNbRYdlDHkkJQ OwRTLrpl0KMCBaCFY3SnD0OMHgCLYbRBYtSKzhOGVzLQA7FKq4IAIyZBBeGL3GPeOrDVWlJNunACplDW UpZAYets5CRRJdZEV2OISuFYMiEZDfNJZpKRknJKEr XOH1YcZ8ZZQuOTUxDN0SEzEfVWKzMCx4MOHyALFvBLKvyc9JcLLbaPlfmj3BCGiUAn4BuCqiAKS7LCsx Yy4elDN8LWAqAAHZOo7OnqUhTTJbVHEYOOiuGMTfBGGwN9I8FIykT2RmDFGvPMOvE0WmKJlbFSIhVnYx DUF3WgT4LXRjCwRoE1W2WDRtFOB9I4V9ByPuJCK5LV SmVmU3Hqn+GT5nZLt+Cv5Mj9RpzrK6hmPlXCu3WWCvNi5INGQQI1HTRv== ID Date Data Source [id number] 04/03/2020 12:16:02 PM EDT [facility] Name Value Range Interpretation Code Description Data Lisa rce(s) Supporting Document(s) Glucose [Mass/volume] in Capillary blood by Glucometer 136 mg/dL 70- 140 [facility] ID Date Data Source [id number] [facility]42[facility] Name Value Range Interpretation Code Description Data Lisa rce(s) Supporting Document(s) [facility] BZNKQp0tTbEQFdTmk2LjMeRaWLVlJW3vefu5Y8X1kXPwW9KtgEOrp2rvZ1CdL1XdRLZcJWYCQD8JvFHx jb2 [file] 5G/rodriguez/tMP27L81++Txy1tHC1q6L1H/2TL+axf//nb06Ypt/6/55n6dcri7/8ekM0ylro/M531u/M7U/F 9/E9v4n+/KH+P/ev7+B7wKg9t+au/7na1/zyP/n+ue 7uv/8Q/5+wylrfG79m3P+8/+fSRPP8f0vtkF0wK9u3czf6d541RpMnch/p/8kaOj8dG+3/h/M7Ifzmxv 7+Qx2zn8s8U+Tv29U/NCk3ei2s0f/x++gO41M32/rw/E34ZV1m3Zsc3qs0eq/oN211iZs+dpb37+9tff na8q4R3+++fS46+392Q61Bz827pb/VIDEO MACHINES MECHANIC/O+555P4Q05 [file] Ezpd2yk7Uw9EL+NSyBVyg/zcn+M69+m8qe0V1+znuALyAfmAfEI+IU/IE/DYLAN/JwzyCFbLs8EMNSYEYGN fG7cs07PScuoIQt4OM/IB+QQ4ew9iBukE2bY0zcntvZ40flbE+CCdOGlfSgrIjn8Vfgv1Smgb6Mclq0D nHO6NmWW6Cd3z9Xps5RVxG8PK1A+ow7CN2rrD/cx5A n2Es6FK+QBeUA+IB+BG2kz4Ox5Jo9D95U0n2iVYZkRba7WN4u+Dn0d+ae1lxxv5Yihu9Xyp90IpU58Ru R93Ex4Whl0U/h+F36r4IzD0WqGqp3r12L+QvrhpY2V0AwZxd2i01T+SczgzS0B7K0F87oX/Spwv0L+VS D/KpB/Chcf/OlGcetR1ptV+NXC/Zue4B12056V2xwX+ PHB/Hrg/Gw7RxS0C8gTQ/Ana Lilia+U28OP1W2Y0DZbZHNEOJPC5uAU1jekkTAd1NV/IB+WSwgc1fe+EvhP6 Erk6uU0GM/WaUR3X8RtXmswsq1srs0E1iU1O30I+CX0T+dv3Rrrm0Xhct2KppJ8UhsL/CsQHA/HBQHww YC9EmTjA3iJUwYUXDzuQKqErfZC7SQHbYXLNJ/HBQH lkXN2JpHrV7rFNsLPMDg9td5F41EV2yPP+OBAfHIgPDsQHB+KDA/UOpwptIYguZA45NI8lfN4IkVwN1a MD8cGB+LUFbYJuOxgSTqaKSb9XPwtkcvYwnIIDH/PFoit1Mid/AAR7b9vT2OVaKnlMcNTewLdsOrwsuk 89+HpAW76Y7TQjEiZbO9yQoqW6LMgJukweS8UM2Tv+ RP8mxnkYP8//eeiEPCFPyAtyfL+HHs8AZzibd7Eg/SI+OBAfHIgPDsQHB+KDA/UIzarjHFbqHQ84IR3x tP9Kb51MlW47RlU9880cwc3She/IBXKBXCE/9+cB/9Xw8/wdfp6/if4xsC6RjoDvL1RZcQdhBFsRIp2p +ha3Qaon2Fbcx0EuOFlXziNvOIaSgM/9SwU1foRwif P32xE80lTgjzKk3er/Fr/iEWbThr08Jd/t8QBAXO/Xr2BBLhwqIq6RJQln5WZ3u8p+2QH/1RgnXjYWv+ c9mlo92cZ+z4ovLD/rwHVvXRyUP642SjnieNnC8bYWiCY7op83G92iVm+6Rp//1XsZ9IjK/GqfZ32/y8 88Fr/oxSMJ4PjerMhW/KqbXI/Ws7lCHCo+1bGGsfiV rlqMsfhV+2GK8enJ15zsLofd+08UaW5VElfn+hXsuMOqgN+lrbJTpRBKbQUQhW35+FXXhqy6+P84C8Ch C33+FV/oay1+1XUiY/Gr9v+Bjx3dVlZMhh16ClLLk+v1r0l5jsiEqlCTy+K740jO8dn0hFH1tv+Lxa+6 CgIvqtP9LxCUcPQdaH+MPPGFkSe+Royal/2jZf/KrrRM bfY7ckJ670o9U37YYQJ07mvm/XnnxNk2aJjP9Uq0S2Dgvk005x3Ki/WsDtd4U24Jv1ANJ+vzUgx/2qcL 4a2U7A6+fC/blwvwK/muBXE/mixh0B3ExRttGYpuy53BI/muBXE/kqZnh1T7/DN+Z1+MZEfvtEfvtEfv b2IbGmy1mwF8bpR3obZ0itP4luL9alN4kjF4prJ0zt iJiyIqwWYa6Dgri40YC/muBXE/lpgh2A6FlMteNNe1ixaOlaF+DTrMOgsXzcPcwO3vF37FZ01SAcv4QL au8CR7J+Cl0HOnjL+ln3Saof8ExtH/Jah9HeO8csFv/yde89Zn5SD+WJ3oT4fLqCucFw1FM8znyesim4 pp/0yzy44rr13e/9eNDogPkyKxuO3iDC8JV3D2+r+j J46M5SU+FF9jV2zggwj/MCeisI6ZFkExz/cs4XWiNB8Gr0Au3M00zXI42MMboiqjvCL2Go00l8+Ni/+V V/L4HvN/V0An2duXjB/KuJ/KuJ/Vg7jF7I9xHIji0QwnD5h8K3O+oHJ+oHJ+oHJ+oHJ+oHJ+oHJ+oHJ+ oHJ/xXE/xvgp864h+a8F9N+K8m/FcT/qsJ/9WE/2rC qnEiy5xqF380ifw6VcH+qwn/2XG6lYI+OBEfnIgPTsQHJ+KDE/LPbpxikZzwuWzgS0vLomPhZQeIVyWQ SJMqgBImfZ5ZaDN0IxOY8ErKv6QlCx+CvgV9C/bF9P9kL8H3bA1RM/XsHL83zh9iAs+CvgV9C/oW9C3o D7tjgK6+eV2QC+QCuUKukJ/6cHw9I3mp/F8yoxoI4n W0TL1xa9BFnRAouBwtO++/Kef9N+FMHTKVvQPgmhfwo49OcQP1GlDA6QxMA0YvZV+OyjV5kj+tlT6B5N cn8tsT+e2J/LARcdqzte2V047Zc6/qyxrm7gC44Xk34zC/KuG/SuS3J/LbE/qenpd0FH64Ii333u2X+K 8S/quE/wsnq4e1weO+q4T/KuG/EkgfTb3voY5n5l6S +K8S/quE/sgO412Vo2/rknpy6xD43Ev83dE+eyK/PZHfnshvT+S3J/LbE/cvmny1OI52Lo33gk+eyG9P 6Gvz3hlY+e2J/TRNgcbicb5X559Dc1/hbzjy3zW71Uc17kO+e6J+MFE/mKgfTNQPJuoHE/WDifrBDOgb 4Mtkm5SpdH2MhFM5Leq0iF+SvfJ7Hfm6bH+AvuBXOa DvgL4D+n1iL7DyjW7Y+n8gR5Na+jMk+jMk+jMk+jMk+jMk+jMk+jMk+jMk+jMk+jMk+jMk+jMk+jMk+j Mk+jMk+jMk+jMk+bClVYr3Fy/1TE9dSgibQG/4QcUj85yJhnQgIZzTXUSK/LwPZvMraXm/D/TuNB9ZG8 lY5OOrXJyJibWI8Cx2ZTg1Zq4snN+WoJ0C9W0b4k6J +VeJ/KtE/Moy/hgOw0EPe5ww+NrlcD9pVt0qj/db+A0Gl9GhOoD4WqB/VcF/Vci/UrOiZzMeCjwHFA0W 4FcFflXgVwV+HeBZVE6G0UsTvxYkTiW+KLtKJySSudfsCT7XfX6B3fNN+GAhPlhyvt+C/5obkai4ear+ q0L/q0L/q0L/q0L/q0L/t0K7LDDzhJn+JRE5QJt2Os zkX5We/WcirhTdulJgiSvEP56Lt611ADVZy3k/fS1+5NBC3i5H+3j52/ffLH/7/r9L3+ZmjcWNn05/8l UK/qta/Tp3XmH5QbvC1KIOWqpgM6/zbXr35Jfut6lHo9omoAs+AvhSWXjqOisiZcqxeD9IEq5p49Xm+V n5Ncshk/lVf/6Rm1lOTywnfF+8Fr/qmEV1/6uxj+OO HRT5b8mzurk+V/t4+dtb3+5/Am78Xht5M77Al+c1gVy6dpqkdcmx7L2u/ova0ou6/1V//sWvfPnqa/Gr jl/M4jzxR1hQyohlRUxiiV7war/qro429VbZqj+rtnP3v+n47O1nLmha2Tk/1f6/wqFwaYu6U5bnkQai 9guwxz36gwMMeFd/1hxL0l3SyQsNj5t6hS6V4C8PN8 ZUgf3c/a96nze/hi8ft55T38f4ce/n1oh5Mo73sKsB+VeF/PZC/Minh/0gWb9AAtppiEcG4NkH9BkY8P4 TA/Xng/jxwfwa/DyAeCp0j5OuGvsxtyaT/OhVuOn7p6QlRwimcstH/ItYwCq8k3AfGnovuxbY/KvCrAr 8e0KlGmyodtcR/NvSiAt4y1VnU/6tC/6tC/6aMb8VP /KFexbZFY0pgNnjDEdbwYja7r8S19oW+eyG/vVA/WKgfLNQPFuoHC/AIlxbIZr5hgE4vGX7IxI0h6D8J 3a0L2DAJ+sFC/ANvkwIHH2gyKlsPNgrkXwn7r9L1wAA0ASU+sTs2QlXr7Ut1DBV+YUsSOk24J737Vy6L CBEhokSUiBExImdjPxaBRRAJIoPIIDKJTCJJJIkUEf O7s4d70KEW6UvnJx/4Ab9NiFIE9pvqeoo2rQ0xz8sEaDMxYqFmmTxjr3krMzgzeVFDSOiOQgYdTbKWVE goESVCGyCe+Nk6BiIVExRSxeLnHNZLKFO1T3L0BCmezcI9GzI4Mcibac+C8bdg/Z4MjrqEmx0IsmYn7T QpyPTkDSzBNYohi6qlCqeBQfpdhCAIWbOZvVrd+aR/ EgSe9aIYCLzpNLNpKGlLSnxlMZWHUOPqbIeyaZUFSeJiyapEJA7WOcUE2JAFbT1aVlhsBxVijITUKpOy EBlEJpFJJIkkkSJSQFC4+AjDYCHv2X8+YykQVKcV3mFQAxP5FOXHhF3GhZVcf6FcOT4IuQ4adL6S39Sl WqlbJ0N9DTBdPJ9SkK2s+VuY/C1M/hYmfwuTvwVUNb 4u+FuY/C1M/gUvyuhIIyx6jgHTSi2laSNCJuFmtVPX4uZNFaMobAuuCy+FlAtu5z2CKTfL63GmfVhy85 zFo6Rkkng4Xdxalqf3DgPphRvuXr+BdZQIJyIHk4HsXXu2NRzzcRPfNKj2RYuwyLWbGUl0SYjmcHAoTT u0JEhan4A/LogIESGiRJSIETEiTsSJBJEgMogMIpPI QWQGwjcGxJ6NEpOoPZnHxL7E2YYAbBcZdzw631USG4TnRUZHYEDLzGSzzESMLPMDrIQKZLUQKQVzZ4DM rLWZXyzbyqD0elHXIssxdqG1crIFLxbSApg3clylqHII0wWPFtxiOYDF8UKMZvkeFUOD2VVLKzhyHJBO 8ZFAPokmEIIQ7RFJXquaBUVD9PNJLqqe7AYV5jMDKt jw9QKN8pwdjwncgN+H7RR7Q5OM3wz2cP5EU3W82M9Fo2sglmTECTBpOKPbNRJMDmUVpAkLX1SY7Q9UPq +hbwMJH4VgZkgQTgQTAwajJXVeuooY/hNFGLiELMWqSWuADsHLQu1fcJLRE1VCiNq9sNwuhYnY+onJbo h/D/zgBI/QDV5BD5lqc6VVGk3YREosAfgeekDJ7JFN 8DluFkFrWf0qnJS+yLm3z2GT/6RF/tt74t3xmh4Co/xP2uR/0if/z1a1p4HN/6RV/vm65j4mjr8Bf/xP 2uV/0i9/C7yobbAmmDPJNeNxCR4YOqL4ac8sI0pGo843/1v24RjS7Gh/h77j4zs5XfG0q3/CS5w3vhcm pdvnPxHh/+rPOMiemM9x7pKo9F6YdUl55Y536jBjFB HqySPdRv/yfbbVl+Alee+vCmdqLR+He2ayKvn1IpdF6PFu4do75b7D5Cts93N56zrmoGZ5GmqUV/W0qvW [file] AcbfZfViURM3ceXi9wUhJmLWCVU3Irv6AqRBDvEVUXSl0+TyK9KTI6lEVdQrf5IVHeHOvcCMTLWh== ID Date Data Source [id number] 04/03/2020 08:22:06 AM [facility] Name Value Range Interpretation Code Description Data Lisa rce(s) Supporting Document(s) Glucose [Mass/volume] in Capillary blood by Glucometer 139 mg/dL 70- 140 [facility] ID Date Data Source [id number] 04/03/2020 04:00:24 AM [facility] Name Value Range Interpretation Code Description Data Lisa rce(s) Supporting Document(s) Leukocytes [#/volume] in Blood by Automated count 5.3 10*3/uL 4-10 [facility] Erythrocytes [#/volume] in Blood by Automated count 3.24 10*6/uL 4.6- 6.1 L [facility] Hemoglobin [Mass/volume] in Blood 10.3 g/dL 13.5-18 L [facility] Hematocrit [Volume Fraction] of Blood by Automated count 30.9 % 4 1-53 L [facility] Erythrocyte mean corpuscular volume [Entitic volume] by Auto mated count 95.1 fL 80-96 [facility] Erythrocyte mean corpuscular hemoglobin [Entitic mass] by Automated count 31.7 pg 27-33 [facility] Erythrocyte mean corpuscular hemoglobin concentration [Mass/volume] by Automated count 33.4 g/dL 32.0-[facility] [Ratio] by Automated count 16.3 % 11.5-14.5 H [facility] Platelets [#/volume] in Blood by Automated count 229 10*3/uL 150-400 [facility] Differential cell count method - Blood [facility] Neutrophils/100 leukocytes in Blood by Automated count 62 % [facility] Lymphocytes/100 leukocytes in Blood by Automated count 27 % [facility] Monocytes/100 leukocytes in Blood by Automated count 8 % [facility] Eosinophils/100 leukocytes in Blood by Automated count 2 % [facility] Basophils/100 leukocytes in Blood by Automated count 1 % [facility] Neutrophils [#/volume] in Blood by Automated count 3.33 10*3/uL 1.8-7 .0 [facility] Lymphocytes [#/volume] in Blood by Automated count 1.42 10*3/uL 1.2-4 .0 [facility] Monocytes [#/volume] in Blood by Automated count 0.43 10*3/uL 0-0.8 [facility] Eosinophils [#/volume] in Blood by Automated count 0.09 10*3/uL 0-0.5 [facility] Basophils [#/volume] in Blood by Automated count 0.03 10*3/uL 0-0.2 [facility] Nucleated erythrocytes/100 leukocytes [Ratio] in Blood by Automated count 0 /100{WBCs} 0-0 [facility] ID Date Data Source [id number] 04/03/2020 04:20:[address] [facility] Name Value Range Interpretation Code Description Data Lisa rce(s) Supporting Document(s) Bicarbonate [Moles/volume] in Serum 22 mmol/L 22-29 [facility] Chloride [Moles/volume] in Serum or Plasma 108 mmol/L 98-107 H [facility] Creatinine [Mass/volume] in Serum or Plasma 0.94 mg/dL 0.70-1.20 [facility] Glucose [Mass/volume] in Serum or Plasma 123 mg/dL 70-140 [facility] Potassium [Moles/volume] in Serum or Plasma 4.4 mmol/L 3.4-5.1 [facility] Sodium [Moles/volume] in Serum or Plasma 139 mmol/L 136-145 [facility] Urea nitrogen [Mass/volume] in Serum or Plasma 19 mg/dL 8-23 [facility] Anion gap 3 in Serum or Plasma 9 mmol/L 8-15 [facility] Osmolality of Serum or Plasma by calculation 291 mosm/kg 275-300 [facility] Creatinine/Urea nitrogen [Mass Ratio] in Serum or Plasma 20 [facility] Calcium [Mass/volume] in Serum or Plasma 8.8 mg/dL 8.8-10.2 [facility] Glomerular filtration rate/1.73 sq M pre dicted among non-blacks [Volume Rate/Area] in Serum or Plasma by Creatinine-based formula (MDRD) >6 0 [facility] Glomerular filtration rate/1.73 sq M pre dicted among blacks [Volume Rate/Area] in Serum or Plasma by Creatinine-based formula (MDRD) >60 [facility] ID Date Data Source [id number] 04/03/2020 04:20:19 AM [facility] Value Range Interpretation Code Description Data Lisa rce(s) Supporting Document(s) Magnesium [Mass/volume] in Serum or Plasma 1.7 mg/dL 1.6-2.4 [facility] ID Date Data Source [id number] 04/03/2020 04:20:19 AM [facility] Value Range Interpretation Code Description Data Lisa rce(s) Supporting Document(s) Phosphate [Mass/volume] in Serum or Plasma 2.9 mg/dL 2.5-4.5 [facility] ID Date Data Source [id number] [facility] Code Description Data Lisa rce(s) Supporting Document(s) Natriuretic peptide.B prohormone N-Terminal [Mass/volu me] in Serum or Plasma 1004 pg/mL <450 H [facility] ID Date Data Source [id number] 04/02/2020 08:54:21 PM [facility] Name Value Range Interpretation Code Description Data Lisa rce(s) Supporting Document(s) Glucose [Mass/volume] in Capillary blood by Glucometer 139 mg/dL 70- 140 [facility] ID Date Data Source [id number] 04/02/2020 05:08:37 PM [facility] Name Value Range Interpretation Code Description Data Lisa rce(s) Supporting Document(s) Glucose [Mass/volume] in Capillary blood by Glucometer 184 mg/dL 70- 140 H [facility] ID Date Data Source [id number] 04/02/2020 01:26:02 PM [facility] Name Value Range Interpretation Code Description Data Lisa rce(s) Supporting Document(s) Glucose [Mass/volume] in Capillary blood by Glucometer 142 mg/dL 70- 140 H [facility] ID Date Data Source [id number] 04/02/2020 01:05:35 PM [facility] XR CHEST FRONTAL ONLY [id number] RESULTI nterpreted by:QASIM MeadowsROCEDURE INFORMATION: Exam: XR Chest, 1 View Exam date and time: 04/02/2020 12:31 PM Age: 85 years old Clinical indication: Other: Preop TECHNIQUE: Imaging protocol: XR of the chest Views: 1 view. COMPARISON: No relevant prior studies available. FINDINGS: Lungs: There is minimal linear scarring or atelectasis peripherally left lower lobe. Pleural space: Unremarkable. No pleural effusion. No pneumothorax. Heart/Mediastinum: Mild cardiomegaly versus projectional magnification. Bones/joints: There are sternal wires consistent with previous sternotomy incision. There are chronic rib fractures. IMPRESSION: 1. There is no focal air space disease. 2. No acute cardiopulmonary disease. THIS DOCUMENT HAS BEEN ELECTRONICALLY SIGNED BY OTIS HUNTLEY MDThis document has been electronically signed by Otis Huntley MD on 04/02/2020 1:05 PM Name Value Range Interpretation Code Description Data Lisa rce(s) Supporting Document(s) ID Date Data Source [id number] 04/03/2020 06:08:02 PM [facility] Cmnt XXX-Imp : NoneMicroorganism XXX Cult : 2019 nCoV Real-Time RT-PCR: NOT DETECTEDThis test method was designed to detect the causative agent of COVID-19. The Dept. of Pathology [facility] has Emergency Use Authorization (EUA) from the FDA to peform this test to allow for rapid response during a declared public health emergency.Initial validation was performed by the Centers for Disease Control and Prevention (CDC) and additionally validated by the Dept. of Pathology [facility]. Negative results do not preclude SARS-CoV-2 infection and should not be used as the sole basis for patient management decisions.Additional information is available on the following FDA websites for health care providers and patients. https://www.fda.gov/media/285279/download, ht tps://www.fda.gov/media/139425/download. Name Value Range Interpretation Code Description Data Lisa rce(s) Supporting Document(s) ID Date Data Source [id number] [facility] Cult : 2019 nCoV Real-Time RT-PCR: NOT DETECTEDThis test method was designed to detect the causative agent of COVID-19. The Dept. of Pathology [facility] has Emergency Use Authorization (EUA) from the FDA to peform this test to allow for rapid response during a declared public health emergency.Initial validation was performed by the Centers for Disease Control and Prevention (CDC) and additionally validated by the Dept. of Pathology [facility]. Negative results do not preclude SARS-CoV-2 infection and should not be used as the sole basis for patient management decisions.Additional information is available on the following FDA websites for health care providers and patients. https://www.fda.gov/media/992294/download, ht tps://www.fda.gov/media/939190/download. Name Value Range Interpretation Code Description Data Lisa rce(s) Supporting Document(s) Microorganism identified in Unspecified specimen by [facility] This lab was ordered by [facility] and reported by [facility]. ID Date Data Source [id number] 04/02/2020 01:28:56 PM [facility] Name Value Range Interpretation Code Description Data Lisa rce(s) Supporting Document(s) Hemoglobin A1c/Hemoglobin.total in Blood by HPLC 7.4 % 4.0-6.0 H [facility] (NOTE)<5.7% Average risk of diabetes (ADA)5.7-6.4% Increased risk of diabetes(ADA)>/= 6.5% Diagnostic for diabetes(ADA) Glucose mean value [Mass/volume] in Blood Estimated fr om glycated hemoglobin 166 mg/dL <126 H [facility] ID Date Data Source [id number] 04/02/2020 01:05:53 PM [facility] Name Value Range Interpretation Code Description Data Lisa rce(s) Supporting Document(s) Leukocytes [#/volume] in Blood by Automated count 5.0 10*3/uL 4-10 [facility] Erythrocytes [#/volume] in Blood by Automated count 3.28 10*6/uL 4.6- 6.1 L [facility] Hemoglobin [Mass/volume] in Blood 10.7 g/dL 13.5-18 L [facility] Hematocrit [Volume Fraction] of Blood by Automated count 31.3 % 4 1-53 L [facility] Erythrocyte mean corpuscular volume [Entitic volume] by Auto mated count 95.3 fL 80-96 [facility] Erythrocyte mean corpuscular hemoglobin [Entitic mass] by Automated count 32.5 pg 27-33 [facility] Erythrocyte mean corpuscular hemoglobin concentration [Mass/volume] by Automated count 34.1 g/dL 32.0-36.0 [facility] Erythrocyte distribution width [Ratio] by Automated count 16.0 % 11.5-14.5 H [facility] Platelets [#/volume] in Blood by Automated count 234 10*3/uL 150-400 [facility] ID Date Data Source [id number] 04/02/2020 01:21:14 PM [facility] Value Range Interpretation Code Description Data Lisa rce(s) Supporting Document(s) Heparin unfractionated [Units/volume] in Platelet poor plasma by Chromogenic method 0.38 U/ml [facility] ID Date Data Source [id number] 04/02/2020 01:21:14 PM [facility] Name Value Range Interpretation Code Description Data Lisa rce(s) Supporting Document(s) Prothrombin time (PT) 13.5 s 12.5-14.9 [facility] INR in Platelet poor plasma by Coagulation assay 1.02 [facility] Routine intensity oral anticoagulation I NR is typically 2.0-3.0. Target INR must be clinically individualized. ID Date Data Source [id number] 04/02/2020 12:27:45 PM [facility] Name Value Range Interpretation Code Description Data Lisa rce(s) Supporting Document(s) Glucose [Mass/volume] in Capillary blood by Glucometer 133 mg/dL 70- 140 [facility] ID Date Data Source [id number] 04/02/2020 10:55:48 AM [facility] IR FEMORAL ARTERIOGRAMFINAL RESULTInterp reted by:Shauna Cook lower extremity arteriogramPREPROCEDURE DIAGNOSIS: Nonhealing ulcer on right footPOST PROCEDURE DIAGNOSIS: Nonhealing ulcer on right footHISTORY AND INDICATIONS: This is an 85-year-old man with a nonhealing ulcer on his right foot and severe right foot pain. He now presents for an arteriogram. The risks, benefits, and competitions of the procedure were explained to the patient. He expressed understanding and agreed to proceed.PROCEDURE: The patient's right groin was prepped and draped in usual sterile fashion. A micropuncture needle was used to cannulate the right common femoral artery under ultrasound guidance in an antegrade direction. This was exchanged over a wire for a 5 Mongolian catheter. Multiple images of the right lower extremity were then obtained. The catheter was then removed. Pressure was held for hemostasis.FINDINGS: The right superficial femoral artery was patent to the level of the right mid thigh. It wa s then completely occluded. The right popliteal artery was occluded. The right anterior tibial artery was occluded. The right posterior tibial artery was occluded. The right peroneal artery was occluded. There was reconstitution of the right dorsalis pedis artery and the distal right anterior tibial artery through collaterals.IMPRESSION: Severe right lower extremity arterial disease with multilevel occlusion.SEDATION: Patient received Versed and fentanyl as part of his moderate sedation. He was sedated for approximately 30 minutes.This document has been electronically signed by Yoli Mcgowan MD on 04/02/2020 10:53 AM Name Value Range Interpretation Code Description Data Lisa rce(s) Supporting Document(s) ID Date Data Source [id number] 04/02/2020 10:37:07 AM T [facility] Name Value Range Interpretation Code Description Data Lisa rce(s) Supporting Document(s) History and Physical [facility] XNNWWl9wCvQXCzLl74/BOYbyJVQgz2XjXLtfWAf6MQahJUUcQ6NwREP7eV2bDVJ8KHbXRrTpEaTwTwU0 lbm [file] AgICAgICAgICAgICAgICAgICAgICAgICAgICAgICAgICAgICAgICAgICAgICAgICAgICAgICAgICAgIA 0KICAgICAgICAgICAgICAgICAgICAgICAgICAgICAg ICAgICAgICAgICAgICAgICAgICAgICAgICAgICAgICAgICAgICAgICAgICAgICAgICAgICAgICAgICAg XOJmZVKrKZDzIQ1KOJHaKKZoNAPpQPSkOWXhMGWoMZFoGJDfWDOhPJXdJYYrEWVwRBZpAUFgCTQzGMBd ICAgICAgICAgICAgICAgICAgICAgICAgICAgICAgIC VtXXGaKRJgAPZcGTCrKBXoSZMpTP5IAWRhRQSiKXBnCREuPFMuHHQhKVVpQWTnKXFmOCCwIXPvCGZtGY AgICAgICAgICAgICAgICAgICAgICAgICAgICAgICAgICAgICAgICAgICAgICAgICAgICAgICAgICAgIC ZiCG2BESPqDWDpQJTyKTXbTIJjJHMqIRQvAUSeRXJe ICAgICAgICAgICAgICAgICAgICAgICAgICAgICAgICAgICAgICAgICAgICAgICAgICAgICAgICAgICAg DWBkWUMzDODrDHWjBF8DNCXsUKFzAZUbAZJhJCAgLJMlOHPvOMUuNMYlNKZqBWRzALOiQMQxMSKzKEWp ICAgICAgICAgICAgICAgICAgICAgICAgICAgICAgIC KyMJPjOAHpSNYsCCSfCWWnTERvTIWgPM3RSZWdOFLkJLGxUFPtBOMeKMYlKJTfPFHgFQUaVQNlOGYsWE AgICAgICAgICAgICAgICAgICAgICAgICAgICAgICAgICAgICAgICAgICAgICAgICAgICAgICAgICAgIC OyPBHlXE4NUIZpPRVfJHIwCJLmXJMpBKLqJNTpRSGf ICAgICAgICAgICAgICAgICAgICAgICAgICAgICAgICAgICAgICAgICAgICAgICAgICAgICAgICAgICAg VGWvYUEdWKDkCGQqDHDtFN2RFXJeUGAsRDSgNQOjZNEsYHUnEMZzHVKhWBJfIGDwGXSsRLWoLDSvYICu ICAgICAgICAgICAgICAgICAgICAgICAgICAgICAgIC WrRRMkXRCaSWIqOCDiMWRrZLOeKAAlRLHpPC3EWNSzNCFwIKBmJBHoICUzTZQqLUWvWXJwQUHpLTPsXM AgICAgICAgICAgICAgICAgICAgICAgICAgICAgICAgICAgICAgICAgICAgICAgICAgICAgICAgICAgIC TmVNFoHHHuBR7VCF59sITov4L1UDFhQH7ujfi/Pg0K YIrzkzJvfJHqGX9GXmIbLV6ath5AGtKdAR7zak3LFUiHRrZfH1Y9sMNjSIStUEMYVlNkN39kPOkfEr58 HUysJAKxSqNuHPi4So1XKfMtD7oeATSbDqL1JJRoSnO0NYGvVuC2ZSTjElQeHBjlGF4Ou9LguWRhPZq+ Mu2FTZ8ae4IeZDpqSSFyDX6bvy8IQHoDVvFmR6Bezi K4TALjNOTzWu1GQTMxNBLcxDMvWEJyLAZCByTaS6RktX95NZXMHw4+BHstivHbUpnOJxZtTIYbg4JuYN m1HO3LLIFmOEn5eWCyHEIYWGB1JKF3qpMkmjGDoGTbyVmwVTGhNZPkGb7hRO1aEKTkQRS3ZhBsBQCPYO 0QSUUjECQpzDVhSACiFAQHYJ5TGFktIJK3YHTptsBm gAKoTIwzMX6GUIXglxPqHhsyYHKEDYs+Vp3EMI0fx3ShDHooATMqKO2brp8NBQdJFsSrT0H2eDKhT0G0 NUmtIb9SFXAcSIOzUkfyIORAYFxkKS9ZGV3xvuO5CS3NbTHfTQWmKZAafTIfQNo6U12xvXNnHJbnCM3K ICA+Chintan+Pl3HXCSgOYEjDLTlAfRsGRAYLiJpB7LeQ9 TXo4PrC0JjDU64pZzjdmNqKGnzZJ4QAM8vRQFcJCNHZT5EfZGabA5oxzYqYHSqCGZKRxWhG15myKTnST PaTZT9BJTgLf5HWUSuB4UfurQvnMqglwLpFZXvBRFBJH6PRXjxrgSksCCgyIlpCO39kZlsJZ3ANk8HSe HtUU3ney2JnDSiTt2EUPUaOu0HPNXvXDKnRJRkSZQ2 PKZbMoReBFpdZGXpRQUyAZN5ALLpQILsGF6DPlLqWTNrYbLnQjuxLBBbKYPklx8VZFYgXWWbMnv4VMPb SLLmQCPiBTnrNOUvUEDwVJX4JHQdJBUhUT3KQoVvPEGzFQP8YpQtGLAmFUXfsv4PNJZlHYBsQjn7JBBo DCRqPMFlVOojLLLwPFM3UlK6XBWpDBZuQN7LYeSpCY HoPPN9PaJtTOIiJJAhzh5CQBXfHBXnLsAoHyZjDZEvWURwTCluHDHmKPF6IBEoKUDoNFHuYV7ZNfVzSF DwUJy2QBQsWNUrCIUiet4XZMPrWWSjLMW2QxHyABQkEMZwXJnqOXPlFRB8NFptLWZmKBByXT5WOmNkTA IuLHh7SonyQOXpHXPvqj8QYBMsLVOsJAX3COZgMLQz JIMlRMwhAEPlWQHeWnQ7UUCsQVWcBG8MIaZbKXMoZSKqTGfvGGBsEEBcmi2TIXTzUKVcSJZ2VXRiLBYc DEXjEGihOLKkAJCiJPl2QMXtGDXkON3UQlEbTFWpYZW0JcjcGVZbLKAlxp7VFGSrZOVlAcubILYfLRIu YIOxJEzdOLTlRVKuJZW6OAEiEHOzZY1MFaNhNGEnEp LuHOTuNLYiIBRbqz3RABTiVPYzFJBdQQMgLGJbOOXpEVrrWWBuNDO1WJFfGGNdLLInML3BDwZdHPLwUz NgGgxeERKeEIYblq2FQSQzRLBqDQFmKHYpMBQrWLMwOGsnHCDbISK4IhM2QULmZJHxFX5XIqXnCHYdQe qrCUluURLdFJLvtx2NWOFfLTEmZeF7DQCsRJXbAYYq BBwzBEGmQEI9FxA4KSXaQSRiAC0IQmVaQOtaTTJSUvv8XTgvD9g0MPZxSy5LV7Zyg5BhIkApDLPPIOya RU2joeMrVURcOz8JA8mUMdr9GZc1DAb3D2YeRCRaETU7BuNzCLRgCCovPaRpWGi6GZ9sFQg3VLtrRQFk WGQqNZGxMJnqKNRgYdF1TREeMaY3XVXgNdUkIX7IVh5ZOpH9FRV8oLKfJh0SSdw9QJaHFqQaIG8OPOj= ID Date Data Source [id number] 11/02/2019 12:00:00 AM EST [email or web address] ([facility]) Name Value Range Interpretation Code Description Data Lisa rce(s) Supporting Document(s) Hemoglobin A1c/Hemoglobin.total in Blood 7.3 HEMOGLOBIN A1c eCW1 ([facility]) ID Date Data Source [id number] 11/02/2019 12:00:00 AM EST [email or web address] ([facility]) Name Value Range Interpretation Code Description Data Lisa rce(s) Supporting Document(s) Microalbumin/Creatinine [Ratio] in Urine 55.6 0.0-30.0 SHALINI/CREAT RATIO eCW1 ([facility]) Albumin/Creatinine [Mass Ratio] in Urine 76.2 MALB URINE SIEMENS eCW1 ([facility]) Microalbumin/Creatinine [Mass Ratio] in Urine 137.0 CREATININE, URINE eCW1 ([facility]) Procedure Social History Code Duration Value Status Description Data Source(s ) Alcohol intake 11/18/2020 12:00:00 AM EST Not Currently completed [facility] Smoking 11/18/2020 12:00:00 AM EST Never smoker completed Never s moker [facility] Smoking 11/09/2020 12:00:00 AM EST Never Smoker completed Never S moker eCW1 ([facility]) Smoking 11/09/2020 12:00:00 AM EST Never Smoker completed Never S moker eCW1 ([facility]) Smoking 11/09/2020 12:00:00 AM EST Never Smoker completed Never S moker eCW1 ([facility]) Smoking 11/09/2020 12:00:00 AM EST Never Smoker completed Never S moker eCW1 ([facility]) Smoking 11/09/2020 12:00:00 AM EST Never Smoker completed Never S moker eCW1 ([facility]) Smoking 11/09/2020 12:00:00 AM EST Never Smoker completed Never S moker eCW1 ([facility]) Smoking 11/09/2020 12:00:00 AM EST Never Smoker completed Never S moker eCW1 ([facility]) Smoking 10/19/2020 12:00:00 AM EST Never Smoker completed Never S moker eCW1 ([facility]) Smoking 10/19/2020 12:00:00 AM EST Never Smoker completed Never S moker eCW1 ([facility]) Smoking 10/19/2020 12:00:00 AM EST Never Smoker completed Never S moker eCW1 ([facility]) Smoking 10/19/2020 12:00:00 AM EST Never Smoker completed Never S moker eCW1 ([facility]) Smoking 10/19/2020 12:00:00 AM EST Never Smoker completed Never S moker eCW1 ([facility]) Smoking 09/12/2020 12:00:00 AM EST Never Smoker completed Never S moker eCW1 ([facility]) Smoking 09/12/2020 12:00:00 AM EST Never Smoker completed Never S moker eCW1 ([facility]) Smoking 09/12/2020 12:00:00 AM EST Never Smoker completed Never S moker eCW1 ([facility]) Smoking 09/12/2020 12:00:00 AM EST Never Smoker completed Never S moker eCW1 ([facility]) Smoking 09/12/2020 12:00:00 AM EST Never Smoker completed Never S moker eCW1 ([facility]) Smoking 09/12/2020 12:00:00 AM EST Never Smoker completed Never S moker eCW1 ([facility]) Smoking 09/12/2020 12:00:00 AM EST Never Smoker completed Never S moker eCW1 ([facility]) Smoking 09/12/2020 12:00:00 AM EST Never Smoker completed Never S moker eCW1 ([facility]) Smoking 09/12/2020 12:00:00 AM EST Never Smoker completed Never S moker eCW1 ([facility]) Smoking 09/12/2020 12:00:00 AM EST Never Smoker completed Never S moker eCW1 ([facility]) Smoking 09/12/2020 12:00:00 AM EST Never Smoker completed Never S moker eCW1 ([facility]) Smoking 09/12/2020 12:00:00 AM EST Never Smoker completed Never S moker eCW1 ([facility]) Smoking 09/12/2020 12:00:00 AM EST Never Smoker completed Never S moker eCW1 ([facility]) Smoking 09/12/2020 12:00:00 AM EST Never Smoker completed Never S moker eCW1 ([facility]) Smoking 09/12/2020 12:00:00 AM EST Never Smoker completed Never S moker eCW1 ([facility]) Smoking 09/12/2020 12:00:00 AM EST Never Smoker completed Never S moker eCW1 ([facility]) Smoking 09/12/2020 12:00:00 AM EST Never Smoker completed Never S moker eCW1 ([facility]) Smoking 08/22/2020 12:00:00 AM EST Never Smoker completed Never S moker eCW1 ([facility]) Smoking 08/22/2020 12:00:00 AM EST Never Smoker completed Never S moker eCW1 ([facility]) Smoking 08/22/2020 12:00:00 AM EST Never Smoker completed Never S moker eCW1 ([facility]) Smoking 08/22/2020 12:00:00 AM EST Never Smoker completed Never S moker eCW1 ([facility]) Smoking 08/22/2020 12:00:00 AM EST Never Smoker completed Never S moker eCW1 ([facility]) Smoking 08/15/2020 12:00:00 AM EDT Never Smoker completed Never S moker eCW1 ([facility]) Smoking 08/15/2020 12:00:00 AM EDT Never Smoker completed Never S moker eCW1 ([facility]) Smoking 08/08/2020 12:00:00 AM EDT Never Smoker completed Never S moker eCW1 ([facility]) Smoking 08/08/2020 12:00:00 AM EDT Never Smoker completed Never S moker eCW1 ([facility]) Smoking 08/01/2020 12:00:00 AM EDT Never Smoker completed Never S moker eCW1 ([facility]) Smoking 08/01/2020 12:00:00 AM EDT Never Smoker completed Never S moker eCW1 ([facility]) Smoking 07/18/2020 12:00:00 AM EDT Never Smoker completed Never S moker eCW1 ([facility]) Alcohol intake 07/04/2020 12:00:00 AM EDT Ex-drinker (finding) comp leted Ex- drinker (finding) [facility] Tobacco use and exposure 07/04/2020 12:00:00 AM EDT Never used co mpleted Never used [facility] Smoking 07/04/2020 12:00:00 AM EDT Never smoker completed Never s [facility] Smoking 05/05/2020 12:00:00 AM EDT Never Smoker completed Never S moker eCW1 ([facility]) Smoking 05/05/2020 12:00:00 AM EDT Never Smoker completed Never S moker eCW1 ([facility]) Smoking 05/05/2020 12:00:00 AM EDT Never Smoker completed Never S moker eCW1 ([facility]) Alcohol intake 04/02/2020 12:00:00 AM EDT Ex-drinker (finding) comp leted Ex- drinker (finding) [facility] Smoking 04/02/2020 12:00:00 AM EDT Never smoker completed Never s [facility] Smoking 03/30/2020 12:00:00 AM EDT Never Smoker completed Never S moker eCW1 ([facility]) Smoking 03/30/2020 12:00:00 AM EDT Never Smoker completed Never S moker eCW1 ([facility]) Smoking 03/30/2020 12:00:00 AM EDT Never Smoker completed Never S moker eCW1 ([facility]) Smoking 03/23/2020 12:00:00 AM EDT Never Smoker completed Never S moker eCW1 ([facility]) Smoking 03/23/2020 12:00:00 AM EDT Never Smoker completed Never S moker eCW1 ([facility]) Smoking 03/23/2020 12:00:00 AM EDT Never Smoker completed Never S moker eCW1 ([facility]) Smoking 03/23/2020 12:00:00 AM EDT Never Smoker completed Never S moker eCW1 ([facility]) Smoking 03/23/2020 12:00:00 AM EDT Never Smoker completed Never S moker eCW1 ([facility]) Vital Signs ID Date Data Source UNK Name Value Range Interpretation Code Description Data Source(s) Oxygen saturation in Arterial blood by Pulse oximetry 98 % 98 % [facility] Body mass index (BMI) [Ratio] 24.41 kg/m2 24.41 kg/m2 [facility] Body weight 79.379 kg 79.379 kg [facility] Body height 180.3 cm 180.3 cm [facility] Heart rate 89 /min 89 /min [facility] Diastolic blood pressure 60 mm[Hg] 60 mm[Hg] [facility] Systolic blood pressure 112 mm[Hg] 112 mm[Hg] [facility] Body surface area Derived from formula 2.06 m2 2.06 m2 [facility] ([facility]) Body weight 87.998 kg 87.998 kg [facility] ([facility]) [place] body weight 166 [lb_av] 166 [lb_av] [facility] T ([facility]) Body mass index (BMI) [Ratio] 27.8 kg/m2 27.8 k g/m2 [facility] ([facility]) Body weight 194.00 [lb_av] 194.00 [lb_av] [facility] T ([facility]) Body height 70 [in_i] 70 [in_i] [facility] ([facility]) 5'10" Diastolic blood pressure 70 mm[Hg] 70 mm[Hg] [facility] ([facility]) Systolic blood pressure 116 mm[Hg] 116 mm[Hg] M [facility] ([facility]) Body surface area Derived from formula 2.07 m2 2.07 m2 [facility] ([facility]) Body weight 88.565 kg 88.565 kg [facility] ([facility]) [place] body weight 166 [lb_av] 166 [lb_av] MED[facility] T ([facility]) Body mass index (BMI) [Ratio] 28.0 kg/m2 28.0 k g/m2 [facility] ([facility]) Body weight 195.25 [lb_av] 195.25 [lb_av] [facility] T ([facility]) Body height 70 [in_i] 70 [in_i] [facility] ([facility]) 5'10" Diastolic blood pressure 60 mm[Hg] 60 mm[Hg] [facility] ([facility]) Systolic blood pressure 120 mm[Hg] 120 mm[Hg] M EDENT ([facility]) Diastolic blood pressure 64 mm[Hg] 64 mm[Hg] eCW1 ([facility]) Systolic blood pressure 107 mm[Hg] 107 mm[Hg] e CW1 ([facility]) Body temperature 99.0 [degF] 99.0 [degF] eCW1 ( [facility]) Respiratory rate 20 /min 20 /min eCW1 (On license of [facility]) Heart rate 113 /min 113 /min W1 ([facility]) Body mass index (BMI) [Ratio] 25.50 kg/m2 25.50 kg/m2 eCW1 ([facility]) Body height 70.25 [in_i] 70.25 [in_i] eCW1 ([facility]) Body weight 179 [lb_av] 179 [lb_av] eCW1 ([facility]) Body surface area Derived from formula 2.07 m2 2.07 m2 [facility] ([facility]) Body weight 88.906 kg 88.906 kg [facility] ([facility]) [place] body weight 166 [lb_av] 166 [lb_av] [facility] T ([facility]) Body mass index (BMI) [Ratio] 28.1 kg/m2 28.1 k g/m2 [facility] ([facility]) Body weight 196.00 [lb_av] 196.00 [lb_av] MED[facility] T ([facility]) Body height 70 [in_i] 70 [in_i] [facility] ([facility]) 5'10" Diastolic blood pressure 64 mm[Hg] 64 mm[Hg] [facility] ([facility]) Systolic blood pressure 94 mm[Hg] 94 mm[Hg] M EDENT ([facility]) Diastolic blood pressure 77 mm[Hg] 77 mm[Hg] eCW1 ([facility]) Systolic blood pressure 124 mm[Hg] 124 mm[Hg] e CW1 ([facility]) Body temperature 98.1 [degF] 98.1 [degF] eCW1 ( [facility]) Respiratory rate 20 /min 20 /min eCW1 (On license of [facility]) Heart rate 129 /min 129 /min eCW1 ([facility]) Body mass index (BMI) [Ratio] 25.50 kg/m2 25.50 kg/m2 W1 ([facility]) Body height 70.25 [in_i] 70.25 [in_i] eCW1 ([facility]) Body weight kg eCW1 ([facility]) Body weight 179 [lb_av] 179 [lb_av] eCW1 ([facility]) Diastolic blood pressure 64 mm[Hg] 64 mm[Hg] eCW1 ([facility]) Systolic blood pressure 139 mm[Hg] 139 mm[Hg] e CW1 ([facility]) Body temperature 98.4 [degF] 98.4 [degF] eCW1 ( [facility]) Respiratory rate 20 /min 20 /min eCW1 (On license of [facility]) Heart rate 65 /min 65 /min eCW1 ([facility]) Body mass index (BMI) [Ratio] 27.78 kg/m2 27.78 kg/m2 W1 ([facility]) Body height 70.25 [in_i] 70.25 [in_i] eCW1 ([facility]) Body weight kg eCW1 ([facility]) Body weight 195 [lb_av] 195 [lb_av] eCW1 ([facility]) Diastolic blood pressure mm[Hg] eCW1 ([facility]) Systolic blood pressure 124 mm[Hg] 124 mm[Hg] e CW1 ([facility]) Body temperature 99.0 [degF] 99.0 [degF] eCW1 ( [facility]) Respiratory rate 18 /min 18 /min eCW1 (On [facility] of [facility]) Heart rate 76 /min 76 /min eCW1 ([facility]) Body mass index (BMI) [Ratio] 27.78 kg/m2 27.78 kg/m2 W1 ([facility]) Body height 70.25 [in_i] 70.25 [in_i] eCW1 ([facility]) Body weight 195 [lb_av] 195 [lb_av] eCW1 ([facility]) Diastolic blood pressure 78 mm[Hg] 78 mm[Hg] eCW1 ([facility]) Systolic blood pressure 124 mm[Hg] 124 mm[Hg] e CW1 ([facility]) Body temperature 98.5 [degF] 98.5 [degF] eCW1 ( [facility]) Respiratory rate 18 /min 18 /min eCW1 (On license of [facility]) Heart rate 92 /min 92 /min eCW1 ([facility]) Body mass index (BMI) [Ratio] 28.21 kg/m2 28.21 kg/m2 eCW1 ([facility]) Body height 70.25 [in_i] 70.25 [in_i] eCW1 ([facility]) Body weight 198 [lb_av] 198 [lb_av] eCW1 ([facility]) Diastolic blood pressure 60 mm[Hg] 60 mm[Hg] eCW1 ([facility]) Systolic blood pressure 125 mm[Hg] 125 mm[Hg] e CW1 ([facility]) Body temperature 97.5 [degF] 97.5 [degF] eCW1 ( [facility]) Respiratory rate 20 /min 20 /min eCW1 (On [facility] of [facility]) Heart rate 66 /min 66 /min eCW1 ([facility]) Body mass index (BMI) [Ratio] 25.36 kg/m2 25.36 kg/m2 W1 ([facility]) Body height 70.25 [in_i] 70.25 [in_i] eCW1 ([facility]) Body weight kg eCW1 ([facility]) Body weight 178 [lb_av] 178 [lb_av] eCW1 ([facility]) Diastolic blood pressure 72 mm[Hg] 72 mm[Hg] eCW1 ([facility]) Systolic blood pressure 132 mm[Hg] 132 mm[Hg] e CW1 ([facility]) Body temperature 96.8 [degF] 96.8 [degF] eCW1 ( [facility]) Respiratory rate 18 /min 18 /min eCW1 (On [facility] of [facility]) Heart rate 80 /min 80 /min eCW1 ([facility]) Body mass index (BMI) [Ratio] 25.36 kg/m2 25.36 kg/m2 W1 ([facility]) Body height 70.25 [in_i] 70.25 [in_i] eCW1 ([facility]) Body weight 178 [lb_av] 178 [lb_av] eCW1 ([facility]) Diastolic blood pressure 68 mm[Hg] 68 mm[Hg] eCW1 ([facility]) Systolic blood pressure 124 mm[Hg] 124 mm[Hg] e CW1 ([facility]) Body temperature 98.7 [degF] 98.7 [degF] eCW1 ( [facility]) Respiratory rate 18 /min 18 /min eCW1 (On [facility] of [facility]) Heart rate 88 /min 88 /min eCW1 ([facility]) Body mass index (BMI) [Ratio] 25.36 kg/m2 25.36 kg/m2 W1 ([facility]) Body height 70.25 [in_i] 70.25 [in_i] eCW1 ([facility]) Body weight 178 [lb_av] 178 [lb_av] eCW1 ([facility]) Diastolic blood pressure 66 mm[Hg] 66 mm[Hg] eCW1 ([facility]) Systolic blood pressure 146 mm[Hg] 146 mm[Hg] e CW1 ([facility]) Body temperature 97.9 [degF] 97.9 [degF] eCW1 ( [facility]) Respiratory rate 20 /min 20 /min eCW1 (On [facility] of [facility]) Heart rate 73 /min 73 /min eCW1 ([facility]) Body mass index (BMI) [Ratio] 28.77 kg/m2 28.77 kg/m2 eCW1 ([facility]) Body height 70.25 [in_i] 70.25 [in_i] eCW1 ([facility]) Body weight kg eCW1 ([facility]) Body weight 202 [lb_av] 202 [lb_av] eCW1 ([facility]) Diastolic blood pressure 65 mm[Hg] 65 mm[Hg] eCW1 ([facility]) Systolic blood pressure 145 mm[Hg] 145 mm[Hg] e CW1 ([facility]) Body temperature 96.7 [degF] 96.7 [degF] eCW1 ( [facility]) Respiratory rate 20 /min 20 /min eCW1 (On license of [facility]) Heart rate 85 /min 85 /min eCW1 ([facility]) Body mass index (BMI) [Ratio] 28.77 kg/m2 28.77 kg/m2 eCW1 ([facility]) Body height 70.25 [in_i] 70.25 [in_i] eCW1 ([facility]) Body weight kg eCW1 ([facility]) Body weight 202 [lb_av] 202 [lb_av] eCW1 ([facility]) Diastolic blood pressure 78 mm[Hg] 78 mm[Hg] eCW1 ([facility]) Systolic blood pressure 126 mm[Hg] 126 mm[Hg] e CW1 ([facility]) Body temperature 97.8 [degF] 97.8 [degF] eCW1 ( [facility]) Respiratory rate 20 /min 20 /min eCW1 (On [facility] of [facility]) Heart rate 80 /min 80 /min eCW1 ([facility]) Body mass index (BMI) [Ratio] 28.77 kg/m2 28.77 kg/m2 eCW1 ([facility]) Body height 70.25 [in_i] 70.25 [in_i] eCW1 ([facility]) Body weight kg eCW1 ([facility]) Body weight 202 [lb_av] 202 [lb_av] eCW1 ([facility]) Diastolic blood pressure 74 mm[Hg] 74 mm[Hg] eCW1 ([facility]) Systolic blood pressure 175 mm[Hg] 175 mm[Hg] e CW1 ([facility]) Body temperature 97.5 [degF] 97.5 [degF] eCW1 ( [facility]) Respiratory rate 19 /min 19 /min eCW1 (On [facility] of [facility]) Heart rate 66 /min 66 /min eCW1 ([facility]) Body mass index (BMI) [Ratio] 28.77 kg/m2 28.77 kg/m2 eCW1 ([facility]) Body height 70.25 [in_i] 70.25 [in_i] eCW1 ([facility]) Body weight kg eCW1 ([facility]) Body weight 202 [lb_av] 202 [lb_av] eCW1 ([facility]) Body mass index (BMI) [Ratio] 28.4 kg/m2 28.4 k g/m2 MEDENT ([facility]) Body weight 204.00 [lb_av] 204.00 [lb_av] MEDEN T ([facility]) Body height 71 [in_i] 71 [in_i] [facility] ([facility]) 5'11" Body temperature 96.0 [degF] 96.0 [degF] [facility] ([facility]) Diastolic blood pressure 64 mm[Hg] 64 mm[Hg] eCW1 ([facility]) Systolic blood pressure 141 mm[Hg] 141 mm[Hg] e CW1 ([facility]) Body temperature 97.9 [degF] 97.9 [degF] eCW1 ( [facility]) Respiratory rate 18 /min 18 /min eCW1 (On license of [facility]) Heart rate 70 /min 70 /min eCW1 ([facility]) Body mass index (BMI) [Ratio] 28.77 kg/m2 28.77 kg/m2 eCW1 ([facility]) Body height 70.25 [in_i] 70.25 [in_i] eCW1 ([facility]) Body weight kg eCW1 ([facility]) Body weight 202 [lb_av] 202 [lb_av] eCW1 ([facility]) Body mass index (BMI) [Ratio] 29.8 kg/m2 29.8 k g/m2 [facility] ([facility]) Body weight 202.00 [lb_av] 202.00 [lb_av] MEDEN T ([facility]) Body height 69 [in_i] 69 [in_i] MEDENT ([facility]) 5'9" Body temperature 97.4 [degF] 97.4 [degF] [facility] ([facility]) Diastolic blood pressure 59 mm[Hg] 59 mm[Hg] eCW1 ([facility]) Systolic blood pressure 126 mm[Hg] 126 mm[Hg] e CW1 ([facility]) Body temperature 98.6 [degF] 98.6 [degF] eCW1 ( [facility]) Respiratory rate 18 /min 18 /min eCW1 (On license of [facility]) Heart rate 72 /min 72 /min eCW1 ([facility]) Body mass index (BMI) [Ratio] 28.77 kg/m2 28.77 kg/m2 eCW1 ([facility]) Body height 70.25 [in_i] 70.25 [in_i] eCW1 ([facility]) Body weight 202 [lb_av] 202 [lb_av] eCW1 ([facility]) Diastolic blood pressure 62 mm[Hg] 62 mm[Hg] eCW1 ([facility]) Systolic blood pressure 132 mm[Hg] 132 mm[Hg] e CW1 ([facility]) Body temperature 97.9 [degF] 97.9 [degF] eCW1 ( [facility]) Respiratory rate 18 /min 18 /min eCW1 (On [facility] of [facility]) Heart rate 75 /min 75 /min eCW1 ([facility]) Body mass index (BMI) [Ratio] 29.06 kg/m2 29.06 kg/m2 eCW1 ([facility]) Body height 70.25 [in_i] 70.25 [in_i] eCW1 ([facility]) Body weight kg eCW1 ([facility]) Body weight 204 [lb_av] 204 [lb_av] eCW1 ([facility]) Diastolic blood pressure 54 mm[Hg] 54 mm[Hg] eCW1 ([facility]) Systolic blood pressure 111 mm[Hg] 111 mm[Hg] e CW1 ([facility]) Body temperature 97.8 [degF] 97.8 [degF] eCW1 ( [facility]) Respiratory rate 18 /min 18 /min eCW1 (On license of [facility]) Heart rate 65 /min 65 /min eCW1 ([facility]) Body mass index (BMI) [Ratio] 29.06 kg/m2 29.06 kg/m2 eCW1 ([facility]) Body height 70.25 [in_i] 70.25 [in_i] eCW1 ([facility]) Body weight kg eCW1 ([facility]) Body weight 204 [lb_av] 204 [lb_av] eCW1 ([facility]) Diastolic blood pressure 64 mm[Hg] 64 mm[Hg] eCW1 ([facility]) Systolic blood pressure 142 mm[Hg] 142 mm[Hg] e CW1 ([facility]) Body temperature 98.9 [degF] 98.9 [degF] eCW1 ( [facility]) Respiratory rate 20 /min 20 /min eCW1 (On license of [facility]) Heart rate 57 /min 57 /min eCW1 ([facility]) Body mass index (BMI) [Ratio] 29.06 kg/m2 29.06 kg/m2 eCW1 ([facility]) Body height 70.25 [in_i] 70.25 [in_i] eCW1 ([facility]) Body weight kg eCW1 ([facility]) Body weight 204 [lb_av] 204 [lb_av] eCW1 ([facility]) Diastolic blood pressure 71 mm[Hg] 71 mm[Hg] eCW1 ([facility]) Systolic blood pressure 160 mm[Hg] 160 mm[Hg] e CW1 ([facility]) Body temperature 98.1 [degF] 98.1 [degF] eCW1 ( [facility]) Respiratory rate 20 /min 20 /min eCW1 (On license of [facility]) Heart rate 65 /min 65 /min eCW1 ([facility]) Body mass index (BMI) [Ratio] 29.06 kg/m2 29.06 kg/m2 eCW1 ([facility]) Body height 70.25 [in_i] 70.25 [in_i] eCW1 ([facility]) Body weight kg eCW1 ([facility]) Body weight 204 [lb_av] 204 [lb_av] eCW1 ([facility]) Diastolic blood pressure 80 mm[Hg] 80 mm[Hg] eCW1 ([facility]) Systolic blood pressure 170 mm[Hg] 170 mm[Hg] e CW1 ([facility]) Body temperature 98.4 [degF] 98.4 [degF] eCW1 ( [facility]) Respiratory rate 18 /min 18 /min eCW1 (On license of [facility]) Heart rate 68 /min 68 /min eCW1 ([facility]) Body mass index (BMI) [Ratio] 29.12 kg/m2 29.12 kg/m2 eCW1 ([facility]) Body height 70.25 [in_i] 70.25 [in_i] eCW1 ([facility]) Body weight 204.4 [lb_av] 204.4 [lb_av] eCW1 ([facility]) Diastolic blood pressure 75 mm[Hg] 75 mm[Hg] eCW1 ([facility]) Systolic blood pressure 172 mm[Hg] 172 mm[Hg] e CW1 ([facility]) Body temperature 98.0 [degF] 98.0 [degF] eCW1 ( [facility]) Respiratory rate 18 /min 18 /min eCW1 (On license of [facility]) Heart rate 77 /min 77 /min eCW1 ([facility]) Body mass index (BMI) [Ratio] 29.74 kg/m2 29.74 kg/m2 eCW1 ([facility]) Body height 70.25 [in_us] 70.25 [in_us] eCW1 ([facility]) Body weight Measured 208.8 [lb_av] 208.8 [lb_av ] eCW1 ([facility]) Diastolic blood pressure 73 mm[Hg] 73 mm[Hg] eCW1 ([facility]) Systolic blood pressure 159 mm[Hg] 159 mm[Hg] e CW1 ([facility]) Body temperature 98.2 [degF] 98.2 [degF] eCW1 ( [facility]) Respiratory rate 18 /min 18 /min eCW1 (On license of [facility]) Heart rate 76 /min 76 /min eCW1 ([facility]) Body mass index (BMI) [Ratio] 29.52 kg/m2 29.52 kg/m2 eCW1 ([facility]) Body height 70.25 [in_us] 70.25 [in_us] eCW1 ([facility]) Body weight Measured 207.2 [lb_av] 207.2 [lb_av ] eCW1 ([facility]) Diastolic blood pressure 88 mm[Hg] 88 mm[Hg] eCW1 ([facility]) Systolic blood pressure 159 mm[Hg] 159 mm[Hg] e CW1 ([facility]) Body temperature 98.8 [degF] 98.8 [degF] eCW1 ( [facility]) Respiratory rate 18 /min 18 /min eCW1 (On license of [facility]) Heart rate 78 /min 78 /min eCW1 ([facility]) Body mass index (BMI) [Ratio] 28.92 kg/m2 28.92 kg/m2 eCW1 ([facility]) Body height 70.25 [in_us] 70.25 [in_us] eCW1 ([facility]) Body weight Measured 203 [lb_av] 203 [lb_av] eC W1 ([facility]) Diastolic blood pressure 93 mm[Hg] 93 mm[Hg] eCW1 ([facility]) Systolic blood pressure 189 mm[Hg] 189 mm[Hg] e CW1 ([facility]) Body temperature 97.6 [degF] 97.6 [degF] eCW1 ( [facility]) Respiratory rate 18 /min 18 /min eCW1 (On license of [facility]) Heart rate 70 /min 70 /min eCW1 ([facility]) Body mass index (BMI) [Ratio] 28.97 kg/m2 28.97 kg/m2 eCW1 ([facility]) Body height 70.25 [in_us] 70.25 [in_us] eCW1 ([facility]) Body weight Measured 203.4 [lb_av] 203.4 [lb_av ] eCW1 ([facility]) Diastolic blood pressure 72 mm[Hg] 72 mm[Hg] eCW1 ([facility]) Systolic blood pressure 152 mm[Hg] 152 mm[Hg] e CW1 ([facility]) Body temperature 98.5 [degF] 98.5 [degF] eCW1 ( [facility]) Respiratory rate 16 /min 16 /min eCW1 (On license of [facility]) Heart rate 72 /min 72 /min eCW1 ([facility]) Body mass index (BMI) [Ratio] 28.72 kg/m2 28.72 kg/m2 eCW1 ([facility]) Body height 70.25 [in_us] 70.25 [in_us] eCW1 ([facility]) Body weight Measured 201.6 [lb_av] 201.6 [lb_av ] eCW1 ([facility]) Diastolic blood pressure 80 mm[Hg] 80 mm[Hg] eCW1 ([facility]) Systolic blood pressure 176 mm[Hg] 176 mm[Hg] e CW1 ([facility]) Body temperature 97.7 [degF] 97.7 [degF] eCW1 ( [facility]) Respiratory rate 18 /min 18 /min eCW1 (On license of [facility]) Heart rate 61 /min 61 /min eCW1 ([facility]) Body mass index (BMI) [Ratio] 29.20 kg/m2 29.20 kg/m2 eCW1 ([facility]) Body height 70.25 [in_us] 70.25 [in_us] eCW1 ([facility]) Body weight Measured 205 [lb_av] 205 [lb_av] eC W1 ([facility]) ID Date Data Source [id number] 07/17/2020 11:12:55 AM [facility] Name Value Range Interpretation Code Description Data Source(s) Body height Measured 70.[address] [facility] [place] WEIGHT RECORDED 199 lb 199 lb [facility] TRANSFER FROM [facility] ID Date Data Source [id number] 04/14/2020 02:56:31 PM [facility] Name Value Range Interpretation Code Description Data Source(s) WEIGHT RECORDED 198.41 lb 198.41 lb [facility] Body height Measured [address] [facility] [place] Patient Treatment Plan of Care Planned Activity Planned Date Details Description Data Source (s) atorvastatin 40 MG Oral Tablet 11/15/2020 12:00:00 AM [facility] duloxetine 30 MG Delayed Release Oral Capsule 11/15/2020 12:00:00 A M EST [facility] Sucralfate 1000 MG Oral Tablet 11/15/2020 12:00:00 AM EST [facility] Linagliptin 5 MG Oral Tablet [Tradjenta] 11/02/2020 12:00:00 AM EST eCW1 ([facility]) Linagliptin 5 MG Oral Tablet [Tradjenta] 11/02/2020 12:00:00 AM EST eCW1 ([facility]) Linagliptin 5 MG Oral Tablet [Tradjenta] 11/02/2020 12:00:00 AM EST [facility] Linagliptin 5 MG Oral Tablet [Tradjenta] 11/02/2020 12:00:00 AM EST eCW1 ([facility]) Linagliptin 5 MG Oral Tablet [Tradjenta] 11/02/2020 12:00:00 AM EST eCW1 ([facility]) Linagliptin 5 MG Oral Tablet [Tradjenta] 11/02/2020 12:00:00 AM EST eCW1 ([facility]) Linagliptin 5 MG Oral Tablet [Tradjenta] 11/02/2020 12:00:00 AM EST eCW1 ([facility]) Linagliptin 5 MG Oral Tablet [Tradjenta] 11/02/2020 12:00:00 AM EST eCW1 ([facility]) Linagliptin 5 MG Oral Tablet [Tradjenta] 11/02/2020 12:00:00 AM EST eCW1 ([facility]) Linagliptin 5 MG Oral Tablet [Tradjenta] 11/02/2020 12:00:00 AM EST eCW1 ([facility]) Aspirin 81 MG Delayed Release Oral Tablet 10/10/2020 12:00:00 AM [facility] ferrous sulfate 325 MG Oral Tablet 10/10/2020 12:00:00 AM EST [facility] tramadol hydrochloride 50 MG Oral Tablet 09/19/2020 12:00:00 AM EST [facility] Tramadol HCl 100 MG 09/19/2020 12:00:00 AM EST eCW1 ([facility]) Tramadol HCl 100 MG 09/19/2020 12:00:00 AM EST eCW1 ([facility]) Tramadol HCl 100 MG 09/19/2020 12:00:00 AM EST eCW1 ([facility]) Tramadol HCl 100 MG 09/19/2020 12:00:00 AM EST eCW1 ([facility]) Tramadol HCl 100 MG 09/19/2020 12:00:00 AM EST eCW1 ([facility]) Tramadol HCl 100 MG 09/19/2020 12:00:00 AM EST eCW1 ([facility]) Tramadol HCl 100 MG 09/19/2020 12:00:00 AM EST eCW1 ([facility]) Tramadol HCl 100 MG 09/19/2020 12:00:00 AM EST eCW1 ([facility]) Tramadol HCl 100 MG 09/19/2020 12:00:00 AM EST eCW1 ([facility]) Tramadol HCl 100 MG 09/19/2020 12:00:00 AM EST eCW1 ([facility]) Tramadol HCl 100 MG 09/19/2020 12:00:00 AM EST eCW1 ([facility]) Tramadol HCl 100 MG 09/19/2020 12:00:00 AM EST eCW1 ([facility]) Tramadol HCl 100 MG 09/19/2020 12:00:00 AM EST eCW1 ([facility]) Tramadol HCl 100 MG 09/19/2020 12:00:00 AM EST eCW1 ([facility]) Tramadol HCl 100 MG 09/19/2020 12:00:00 AM EST eCW1 ([facility]) Escitalopram 5 MG Oral Tablet 09/12/2020 12:00:00 AM EST eCW1 ([facility]) Escitalopram 5 MG Oral Tablet 09/12/2020 12:00:00 AM EST eCW1 ([facility]) apixaban 5 MG Oral Tablet [Eliquis] 08/28/2020 12:00:00 AM EST eCW1 ([facility]) doxycycline hyclate 100 MG Oral Tablet 08/28/2020 12:00:00 AM EST eCW1 ([facility]) apixaban 5 MG Oral Tablet [Eliquis] 08/28/2020 12:00:00 AM EST eCW1 ([facility]) doxycycline hyclate 100 MG Oral Tablet 08/28/2020 12:00:00 AM EST eCW1 ([facility]) apixaban 5 MG Oral Tablet [Eliquis] 08/28/2020 12:00:00 AM EST eCW1 ([facility]) doxycycline hyclate 100 MG Oral Tablet 08/28/2020 12:00:00 AM EST eCW1 ([facility]) apixaban 5 MG Oral Tablet [Eliquis] 08/28/2020 12:00:00 AM EST eCW1 ([facility]) doxycycline hyclate 100 MG Oral Tablet 08/28/2020 12:00:00 AM EST eCW1 ([facility]) Lisinopril 10 MG Oral Tablet 07/07/2020 12:00:00 AM [facility] Ibuprofen 400 MG Oral Tablet 07/04/2020 09:38:31 PM [facility] dextrose 50 % IV solution 25 mL 07/04/2020 09:29:30 PM [facility] Glucagon 1 MG Injection 07/04/2020 09:29:30 PM [facility] Glucose 0.417 MG/MG Oral Gel 07/04/2020 09:29:30 PM [facility] oxyCODONE (ROXICODONE) immediate release tablet 5 mg 020 09:23:50 PM [facility] Silver-Carboxymethylcellulose (AQUACEL-AG HYDROFIBER 3 /4"X18") 3/4"X18" MISC 06/20/2020 12:00:00 AM EDT [facility] Aquacel-Ag Hydrofiber 3/4"X18" External 06/20/2020 12:00:00 AM [facility] gabapentin 100 MG Oral Capsule 06/20/2020 12:00:00 AM [facility] Magnesium Oxide 400 MG Oral Tablet 04/12/2020 12:00:00 AM [facility] pantoprazole 40 MG Delayed Release Oral Tablet 04/12/2020 12:00:00 AM [facility] Tamsulosin hydrochloride 0.4 MG Oral Capsule 04/12/2020 12:00:00 AM [facility] Tamsulosin hydrochloride 0.4 MG Oral Capsule 04/12/2020 12:00:00 AM [facility] pantoprazole 40 MG Delayed Release Oral Tablet 04/12/2020 12:00:00 AM [facility] Magnesium Oxide 400 MG Oral Tablet 04/12/2020 12:00:00 AM [facility] Lisinopril 10 MG Oral Tablet 04/12/2020 12:00:00 AM [facility] 8.6 MG Oral Tablet 04/11/2020 12:00:00 AM [facility], JAIL 8.6 MG Oral Tablet 04/11/2020 12:00:00 AM [facility] Rivaroxaban 2.5 MG Oral Tablet (XARELTO) 04/11/2020 12:00:00 AM [facility] Oxycodone Hydrochloride 5 MG Oral Tablet 04/11/2020 12:00:00 AM [facility] Docusate Sodium 100 MG Oral Capsule 04/11/2020 12:00:00 AM [facility] Bisacodyl 10 MG Rectal Suppository 04/11/2020 12:00:00 AM [facility] gabapentin 100 MG Oral Capsule 04/11/2020 12:00:00 AM [facility] pantoprazole (PROTONIX) injection 40 mg 04/03/2020 07:30:00 AM [facility] dextrose 50 % IV solution 25 mL 04/02/2020 12:06:19 PM [facility] Glucagon 1 MG Injection 04/02/2020 12:06:19 PM [facility] Glucose 0.417 MG/MG Oral Gel 04/02/2020 12:06:19 PM [facility] Lisinopril 5 MG Oral Tablet 03/17/2020 12:00:00 AM EDT eCW1 ([facility]) gabapentin 300 MG Oral Capsule 02/29/2020 12:00:00 AM EDT eCW1 ([facility]) gabapentin 300 MG Oral Capsule 02/29/2020 12:00:00 AM EDT eCW1 ([facility]) Cephalexin 500 MG Oral Capsule 02/22/2020 12:00:00 AM EDT eCW1 ([facility]) Metformin hydrochloride 500 MG Oral Tablet 10/22/2019 12:00:00 AM E [facility] Glipizide 5 MG Oral Tablet 09/21/2019 12:00:00 AM EST [facility] glucose blood (ACCU-CHEK VAHE) test strip 03/01/2015 12:00:00 AM E DT [facility] Lisinopril 5 MG Oral Tablet [facility] gabapentin 300 MG Oral Capsule [facility]
[2020-12-05] MEDS ORDERED: PANTOPRAZOLE 40MG VIAL (C9113 PER 1) IV ONE (18:00)
--- OUTSIDE RECORDS SUMMARY | 2020-12-05 18:28 | CCD ---
Author Author [facility] Organization [facility] Address Unknown Phone Unavailable Care Team Providers Care Automotive Product Engineer Name Role Phone Von BECK MD Unavailable [...] Unavailable Unavailable Vianey Cartertech Unavailable Unavailable Tushar Craterjtech Unavailable Unavailable Vianey Carter[employer] Unavailable Unavailable Vianey [...] Unavailable Unavailable SlecorykaTusharjtech MD Unavailable Unavailable SleTushar tuckerjtech MD Unavailable [...] B Hiren MARLOW Unavailable Unavailable Fish, B Hrien MARLOW Unavailable Unavailable Fish, B Hiren MARLOW [...] B Hiren MARLOW Unavailable Unavailable Fish, B Hiern MARLOW Unavailable Unavailable Fish, B Hiren MARLOW [...] Unavailable Gurpreet MCGOWAN MD Unavailable Unavailable Gurpreet MCGWOAN MD Unavailable Unavailable Gurpreet MCGOWAN MD Unavailable [...] Unavailable Augustine Cheek MD Unavailable Unavailable Augustine Cheke MD Unavailable Unavailable Augustine Cheek MD Unavailable [...] is protected by Article 27-F of the [facility] Public Health law. If you continue you may have access to information: Regarding HIV / AIDS; Provided by facilities licensed or operated by the [facility] Office of Mental Health; or Provided by the [facility] Office for People With Developmental Disabilities. If such information is present, then the following [facility] mandated warning applies: This information has been [...] law may result in a fine or mcfp sentence or both. A general authorization for the release of medical or other information is NOT sufficient authorization for further disc losure. Allergies and Adverse Reactions Type Description Substance Reaction Status Data Source(s ) Drug Class NO KNOWN ALLERGIES NO KNOWN [facility] Family History Family Member Name Family Member Gender Family Member Status Date o f Status Description Data Source(s) Unknown Male Problem MEDENT ([facility]) Unknown Unknown Problem [facility] ([facility] Unknown Female Problem MEDENT ([facility] ) Encounters Encounter Providers Location Date Indications Data Source(s ) Outpatient Attender: LYLE Hayes errer: LYLE BECK MDConsultant: LYLE BECK MD 12/05/2020 01:17:00 PM EST - 12/05/2020 01:27:00 PM EST [facility] Unknown [address] [facility] [address] 11/23/2020 12:00:00 AM EST [facility] ([facility]) [place] [address] [facility] [address] 11/21/2020 12:00:00 AM EST eCW1 ([facility]) Outpatient Attender: Rochelle ONEAL [email or web address] 12:00:00 AM EST - 11/17/2020 03:52:37 PM EST [facility] Unknown [address] [facility] [address] 11/13/2020 12:00:00 AM EST eCW1 ([facility]) Outpatient [address] [facility] [address] 11/09/2020 12:00:00 AM EST eCW1 ([facility]) Unknown [address] [facility] [place] [address] 11/09/2020 12:00:00 AM EST eCW1 ([facility]) Unknown [address] [facility] [address] 11/07/2020 12:00:00 AM EST eCW1 ([facility]) Unknown [address] [facility] [address] 10/31/2020 12:00:00 AM EST eCW1 ([facility]) Unknown [address] [facility] Y [address] 10/30/2020 12:00:00 AM EST eCW1 ([facility]) Unknown [address] [facility] Y [address] 10/26/2020 12:00:00 AM EST eCW1 ([facility]) Office Visit Attender: Beth Escalante/Gerald/Benji/Benjy ford 10/24/2020 10:45:00 AM EST MED[facility] ([facility]) [place] [address] [facility] [address] 10/24/2020 12:00:00 AM EST eCW1 ([facility]) Outpatient [address] [facility] [address] 10/19/2020 12:00:00 AM EST eCW1 ([facility]) Unknown [address] [facility] [address] 10/18/2020 12:00:00 AM EST eCW1 ([facility]) Unknown [address] [facility] [address] 10/11/2020 12:00:00 AM EST eCW1 ([facility]) Unknown [address] [facility] [place] [address] 10/10/2020 12:00:00 AM EST eCW1 ([facility]) Unknown [address] [facility] [address] 10/03/2020 12:00:00 AM EST eCW1 ([facility]) Unknown [address] [facility] [address] 10/02/2020 12:00:00 AM EST eCW1 ([facility]) Unknown [address] [facility] [address] 09/28/2020 12:00:00 AM EST eCW1 ([facility]) [place] [address] [facility] [address] 09/26/2020 12:00:00 AM EST eCW1 ([facility]) Unknown [address] [facility] [address] 09/25/2020 12:00:00 AM EST eCW1 ([facility]) Unknown [address] [facility] [place] [address] 09/19/2020 12:00:00 AM EST eCW1 ([facility]) Unknown [address] [facility] [address] 09/18/2020 12:00:00 AM EST eCW1 ([facility]) Unknown [address] [facility] [address] 09/16/2020 12:00:00 AM EST eCW1 ([facility]) Unknown [address] [facility] [place] [address] 09/13/2020 12:00:00 AM EST eCW1 ([facility]) Outpatient [address] [facility] [address] 09/12/2020 12:00:00 AM EST eCW1 ([facility]) Outpatient [address] [facility] Y [address] 09/12/2020 12:00:00 AM EST eCW1 ([facility]) Outpatient [address] [facility] Y [address] 09/07/2020 12:00:00 AM EST eCW1 ([facility]) ([id number]) For Template Castellanos [address] [place] [address] 09/05/2020 12:00:00 AM EST [facility]CW1 ([facility]) [place] [address] [facility] [address] 08/29/2020 12:00:00 AM EST eCW1 ([facility]) Unknown [address] [facility] [address] 08/23/2020 12:00:00 AM EST eCW1 ([facility]) Unknown [address] [facility] Y [address] 08/22/2020 12:00:00 AM EST eCW1 ([facility]) Outpatient [address] [facility] Y [address] 08/22/2020 12:00:00 AM EST eCW1 ([facility]) Outpatient [address] [facility] Y [address] 08/22/2020 12:00:00 AM EST eCW1 ([facility]) [place] [address] [facility] [address] 08/16/2020 12:00:00 AM EDT eCW1 ([facility]) Outpatient [address] [facility] [address] 08/15/2020 12:00:00 AM EDT eCW1 ([facility]) ([id number]) For Template Castellanos [address] [place] [address] 08/08/2020 12:00:00 AM EDT eCW1 ([facility]) ([id number]) For Template Castellanos [address] [place] [address] 08/01/2020 12:00:00 AM EDT eCW1 ([facility]) ([id number]) For Template Castellanos [address] [place] [address] 07/25/2020 12:00:00 AM EDT eCW1 ([facility]) (WND NP120) New Patient 120 Min [address] [place] [address] 07/18/2020 12:00:00 AM EDT eCW1 ([facility]) Unknown [address] [facility] [address] 07/18/2020 12:00:00 AM EDT eCW1 ([facility]) Unknown [address] [facility] Y [address] 07/18/2020 12:00:00 AM EDT eCW1 ([facility]) Inpatient Attender: YOLI Longoria DAdmitter: YOLI MCGOWAN MDConsultant: YOLI MCGOWAN MD [id number] 07/04/2020 12:00:00 AM EDT - 07/07/2020 06:34:00 PM EDT Unspecified atherosclerosis of [place] arteries of extr emities, right leg [facility] Unspecified atherosclerosis of [place] ar teries of extremities, right leg Patient discharged. [facility] [address] [facility] [address] 06/29/2020 12:00:00 AM EDT eCW1 ([facility]) Outpatient [address] [facility], [facility] [address] 05/12/2020 12:00:00 AM EDT [facility] Outpatient [address] [facility], [facility] [address] 05/05/2020 12:00:00 AM EDT [facility]1 [facility]) Unknown [address] [facility] [address] 05/04/2020 12:00:00 AM EDT [facility]CW1 [facility]) Outpatient Attender: YOLI MCGOWAN MD 05/02/2020 11:00: 00 AM EDT [facility] Outpatient [address] [facility] [address] 04/27/2020 12:00:00 AM EDT eCW1 [facility]) Outpatient Referrer: Hiren Mcneil MD 04/12/2020 02:11:00 PM EDT [facility] Unknown [address] [facility] [address] 04/04/2020 12:00:00 AM EDT eCW1 [facility]) Inpatient Attender: YOLI Longoria DAttender: Chiki Cheek MDAdmitter: YOLI MCGOWAN MDReferrer: YOLI MCGOWAN MDConsultant: YOLI MCGOWAN MD [id number] 04/02/2020 12:00:00 AM EDT - 04/12/2020 12:36:00 PM EDT Unspecified atherosclerosis of [place] arteries of extremities, unspecified extremity [facility] Unspecified atherosclerosis of [place] ar teries of extremities, unspecified extremity Patient discharged. ([id number]) For Template Castellanos [address] [place] [address] 03/30/2020 12:00:00 AM EDT eCW1 ([facility]) Unknown [address] [facility] [address] 03/27/2020 12:00:00 AM EDT [facility] Unknown [address] [facility] [address] 03/24/2020 12:00:00 AM EDT eCW1 ([facility]) [place] [address] [facility] [address] 03/24/2020 12:00:00 AM EDT eCW1 ([facility]) Unknown [address] [facility] [address] 03/24/2020 12:00:00 AM EDT eCW1 ([facility]) (WND NP120) New Patient 120 Min [address] [place] [address] 03/23/2020 12:00:00 AM EDT eCW1 ([facility]) Outpatient Attender: Hiren Mcneil MD Physical Therapy 03/22/2020 0 2:15:00 PM EDT MEDENT ([facility]) [facility] [address] [facility] [address] 03/17/2020 12:00:00 AM EDT eCW1 ([facility]) [facility] [address] [facility] [address] 03/17/2020 12:00:00 AM EDT eCW1 ([facility]) Outpatient [address] [facility] [address] 03/16/2020 12:00:00 AM EDT eCW1 ([facility]) [facility] [address] [facility] [address] 03/09/2020 12:00:00 AM EDT eCW1 ([facility]) [facility] [address] [facility] [address] 03/07/2020 12:00:00 AM EDT eCW1 ([facility]) [facility] [address] [facility] [address] 03/07/2020 12:00:00 AM EDT eCW1 ([facility]) [facility] [address] [facility] [address] 02/29/2020 12:00:00 AM EDT [facility]CW1 [facility]) [facility] [address] [facility] [address] 02/25/2020 12:00:00 AM EDT eCW1 ([facility]) [facility] [place] [address] [facility] [address] 02/22/2020 12:00:00 AM EDT eCW1 ([facility]) [facility] [address] [facility] [address] 02/22/2020 12:00:00 AM EDT eCW1 ([facility]) Outpatient Attender: Hiren Mcneil MD Physical Therapy 12/31/2019 0 3:30:00 PM EDT MEDENT ([facility]) [facility] [address] [place] [address] 12/24/2019 12:00:00 AM EST eCW1 ([facility]) [facility] [address] [place] [address], [place] [address] 12/23/2019 12:00:00 AM EST eCW1 ([facility]) Outpatient Referrer: Hiren Mcneil MD 11/19/2019 07:15:00 AM EST [facility] [address] [place] [address], [place] [address] 11/02/2019 12:00:00 AM EST eCW1 ([facility]) Outpatient Attender: Paulie Carter MD SJP.[email or web address] 10/20 12:00:00 AM EST [facility] Immunizations Vaccine Date Status Description Data Source(s) IIV3. This is one of two codes replacing CVX 15, which is being retired. 08/01/2020 03:23:00 PM EDT completed eCW1 ([facility]) IIV3. This is one of two codes replacing CVX 15, which is being retired. 08/01/2020 03:23:00 PM EDT completed eCW1 ([facility]) IIV3. This is one of two codes replacing CVX 15, which is being retired. 08/01/2020 03:23:00 PM EDT completed eCW1 ([facility]) IIV3. This is one of two codes replacing CVX 15, which is being retired. 08/01/2020 03:23:00 PM EDT completed eCW1 ([facility]) IIV3. This is one of two codes replacing CVX 15, which is being retired. 08/01/2020 03:23:00 PM EDT completed eCW1 ([facility]) IIV3. This is one of two codes replacing CVX 15, which is being retired. 08/01/2020 03:23:00 PM EDT completed eCW1 ([facility]) IIV3. This is one of two codes replacing CVX 15, which is being retired. 08/01/2020 03:23:00 PM EDT completed eCW1 ([facility]) IIV3. This is one of two codes replacing CVX 15, which is being retired. 08/01/2020 03:23:00 PM EDT completed eCW1 ([facility]) IIV3. This is one of two codes replacing CVX 15, which is being retired. 08/01/2020 03:23:00 PM EDT completed eCW1 ([facility]) IIV3. This is one of two codes replacing CVX 15, which is being retired. 08/01/2020 03:23:00 PM EDT completed eCW1 ([facility]) IIV3. This is one of two codes replacing CVX 15, which is being retired. 08/01/2020 03:23:00 PM EDT completed eCW1 ([facility]) IIV3. This is one of two codes replacing CVX 15, which is being retired. 08/01/2020 03:23:00 PM EDT completed eCW1 ([facility]) IIV3. This is one of two codes replacing CVX 15, which is being retired. 08/01/2020 03:23:00 PM EDT completed eCW1 ([facility]) IIV3. This is one of two codes replacing CVX 15, which is being retired. 08/01/2020 03:23:00 PM EDT completed eCW1 ([facility]) IIV3. This is one of two codes replacing CVX 15, which is being retired. 08/01/2020 03:23:00 PM EDT completed eCW1 ([facility]) IIV3. This is one of two codes replacing CVX 15, which is being retired. 08/01/2020 03:23:00 PM EDT completed eCW1 ([facility]) IIV3. This is one of two codes replacing CVX 15, which is being retired. 08/01/2020 03:23:00 PM EDT completed eCW1 ([facility]) IIV3. This is one of two codes replacing CVX 15, which is being retired. 08/01/2020 03:23:00 PM EDT completed eCW1 ([facility]) IIV3. This is one of two codes replacing CVX 15, which is being retired. 08/01/2020 03:23:00 PM EDT completed eCW1 ([facility]) IIV3. This is one of two codes replacing CVX 15, which is being retired. 08/01/2020 03:23:00 PM EDT completed eCW1 ([facility]) IIV3. This is one of two codes replacing CVX 15, which is being retired. 08/01/2020 03:23:00 PM EDT completed eCW1 ([facility]) IIV3. This is one of two codes replacing CVX 15, which is being retired. 08/01/2020 03:23:00 PM EDT completed eCW1 ([facility]) IIV3. This is one of two codes replacing CVX 15, which is being retired. 08/01/2020 03:23:00 PM EDT completed eCW1 ([facility]) IIV3. This is one of two codes replacing CVX 15, which is being retired. 08/01/2020 03:23:00 PM EDT completed eCW1 ([facility]) IIV3. This is one of two codes replacing CVX 15, which is being retired. 08/01/2020 03:23:00 PM EDT completed eCW1 ([facility]) IIV3. This is one of two codes replacing CVX 15, which is being retired. 08/01/2020 03:23:00 PM EDT completed eCW1 ([facility]) IIV3. This is one of two codes replacing CVX 15, which is being retired. 08/01/2020 03:23:00 PM EDT completed eCW1 ([facility]) IIV3. This is one of two codes replacing CVX 15, which is being retired. 08/01/2020 03:23:00 PM EDT completed eCW1 ([facility]) IIV3. This is one of two codes replacing CVX 15, which is being retired. 08/01/2020 03:23:00 PM EDT completed eCW1 ([facility]) IIV3. This is one of two codes replacing CVX 15, which is being retired. 08/01/2020 03:23:00 PM EDT completed eCW1 ([facility]) IIV3. This is one of two codes replacing CVX 15, which is being retired. 08/01/2020 03:23:00 PM EDT completed eCW1 ([facility]) IIV3. This is one of two codes replacing CVX 15, which is being retired. 08/01/2020 03:23:00 PM EDT completed eCW1 ([facility]) IIV3. This is one of two codes replacing CVX 15, which is being retired. 08/01/2020 03:23:00 PM EDT completed eCW1 ([facility]) IIV3. This is one of two codes replacing CVX 15, which is being retired. 08/01/2020 03:23:00 PM EDT completed eCW1 ([facility]) IIV3. This is one of two codes replacing CVX 15, which is being retired. 08/01/2020 03:23:00 PM EDT completed eCW1 ([facility]) IIV3. This is one of two codes replacing CVX 15, which is being retired. 08/01/2020 03:23:00 PM EDT completed eCW1 ([facility]) IIV3. This is one of two codes replacing CVX 15, which is being retired. 08/01/2020 03:23:00 PM EDT completed eCW1 ([facility]) IIV3. This is one of two codes replacing CVX 15, which is being retired. 08/01/2020 03:23:00 PM EDT completed eCW1 ([facility]) IIV3. This is one of two codes replacing CVX 15, which is being retired. 08/01/2020 03:23:00 PM EDT completed eCW1 ([facility]) IIV3. This is one of two codes replacing CVX 15, which is being retired. 08/01/2020 03:23:00 PM EDT completed eCW1 ([facility]) IIV3. This is one of two codes replacing CVX 15, which is being retired. 08/01/2020 02:55:00 PM EDT completed eCW1 ([facility]) IIV3. This is one of two codes replacing CVX 15, which is being retired. 08/01/2020 02:55:00 PM EDT completed eCW1 ([facility]) IIV3. This is one of two codes replacing CVX 15, which is being retired. 08/01/2020 02:55:00 PM EDT completed eCW1 ([facility]) IIV3. This is one of two codes replacing CVX 15, which is being retired. 08/01/2020 02:55:00 PM EDT completed eCW1 ([facility]) IIV3. This is one of two codes replacing CVX 15, which is being retired. 08/01/2020 02:55:00 PM EDT completed eCW1 ([facility]) IIV3. This is one of two codes replacing CVX 15, which is being retired. 08/01/2020 02:55:00 PM EDT completed eCW1 ([facility]) IIV3. This is one of two codes replacing CVX 15, which is being retired. 08/01/2020 02:55:00 PM EDT completed eCW1 ([facility]) IIV3. This is one of two codes replacing CVX 15, which is being retired. 08/01/2020 02:55:00 PM EDT completed eCW1 ([facility]) IIV3. This is one of two codes replacing CVX 15, which is being retired. 08/01/2020 02:55:00 PM EDT completed eCW1 ([facility]) IIV3. This is one of two codes replacing CVX 15, which is being retired. 08/01/2020 02:55:00 PM EDT completed eCW1 ([facility]) IIV3. This is one of two codes replacing CVX 15, which is being retired. 08/01/2020 02:55:00 PM EDT completed eCW1 ([facility]) IIV3. This is one of two codes replacing CVX 15, which is being retired. 08/01/2020 02:55:00 PM EDT completed eCW1 ([facility]) IIV3. This is one of two codes replacing CVX 15, which is being retired. 08/01/2020 02:55:00 PM EDT completed eCW1 ([facility]) IIV3. This is one of two codes replacing CVX 15, which is being retired. 08/01/2020 02:55:00 PM EDT completed eCW1 ([facility]) IIV3. This is one of two codes replacing CVX 15, which is being retired. 08/01/2020 02:55:00 PM EDT completed eCW1 ([facility]) IIV3. This is one of two codes replacing CVX 15, which is being retired. 08/01/2020 02:55:00 PM EDT completed eCW1 ([facility]) IIV3. This is one of two codes replacing CVX 15, which is being retired. 08/01/2020 02:55:00 PM EDT completed eCW1 ([facility]) IIV3. This is one of two codes replacing CVX 15, which is being retired. 08/01/2020 02:55:00 PM EDT completed eCW1 ([facility]) IIV3. This is one of two codes replacing CVX 15, which is being retired. 08/01/2020 02:55:00 PM EDT completed eCW1 ([facility]) IIV3. This is one of two codes replacing CVX 15, which is being retired. 08/01/2020 02:55:00 PM EDT completed eCW1 ([facility]) IIV3. This is one of two codes replacing CVX 15, which is being retired. 08/01/2020 02:55:00 PM EDT completed eCW1 ([facility]) IIV3. This is one of two codes replacing CVX 15, which is being retired. 08/01/2020 02:55:00 PM EDT completed eCW1 ([facility]) IIV3. This is one of two codes replacing CVX 15, which is being retired. 08/01/2020 02:55:00 PM EDT completed eCW1 ([facility]) IIV3. This is one of two codes replacing CVX 15, which is being retired. 08/01/2020 02:55:00 PM EDT completed eCW1 ([facility]) IIV3. This is one of two codes replacing CVX 15, which is being retired. 08/01/2020 02:55:00 PM EDT completed eCW1 ([facility]) IIV3. This is one of two codes replacing CVX 15, which is being retired. 08/01/2020 02:55:00 PM EDT completed eCW1 ([facility]) IIV3. This is one of two codes replacing CVX 15, which is being retired. 08/01/2020 02:55:00 PM EDT completed eCW1 ([facility]) IIV3. This is one of two codes replacing CVX 15, which is being retired. 08/01/2020 02:55:00 PM EDT completed eCW1 ([facility]) IIV3. This is one of two codes replacing CVX 15, which is being retired. 08/01/2020 02:55:00 PM EDT completed eCW1 ([facility]) IIV3. This is one of two codes replacing CVX 15, which is being retired. 08/01/2020 02:55:00 PM EDT completed eCW1 ([facility]) IIV3. This is one of two codes replacing CVX 15, which is being retired. 08/01/2020 02:55:00 PM EDT completed eCW1 ([facility]) IIV3. This is one of two codes replacing CVX 15, which is being retired. 08/01/2020 02:55:00 PM EDT completed eCW1 ([facility]) IIV3. This is one of two codes replacing CVX 15, which is being retired. 08/01/2020 02:55:00 PM EDT completed eCW1 ([facility]) IIV3. This is one of two codes replacing CVX 15, which is being retired. 08/01/2020 02:55:00 PM EDT completed eCW1 ([facility]) IIV3. This is one of two codes replacing CVX 15, which is being retired. 08/01/2020 02:55:00 PM EDT completed eCW1 ([facility]) IIV3. This is one of two codes replacing CVX 15, which is being retired. 08/01/2020 02:55:00 PM EDT completed eCW1 ([facility]) IIV3. This is one of two codes replacing CVX 15, which is being retired. 08/01/2020 02:55:00 PM EDT completed eCW1 ([facility]) IIV3. This is one of two codes replacing CVX 15, which is being retired. 08/01/2020 02:55:00 PM EDT completed eCW1 ([facility]) IIV3. This is one of two codes replacing CVX 15, which is being retired. 08/01/2020 02:55:00 PM EDT completed eCW1 ([facility]) IIV3. This is one of two codes replacing CVX 15, which is being retired. 08/01/2020 02:55:00 PM EDT completed eCW1 ([facility]) Medications Medication Brand Name Start Date Product Form Dose Route Admi nistrative Instructions Pharmacy Instructions Status Indications Reaction Description Data Source(s) Sucralfate 1000 MG Oral Tablet sucralfate (CARAFATE) 1 g tablet sucralfate (CARAFATE) 1 g tablet 11/15/2020 12:00:00 AM EST a ctive [facility] atorvastatin 40 MG Oral Tablet atorvastatin (LIPITOR) 40 MG tablet atorvastatin (LIPITOR) 40 MG tablet 11/15/2020 12:00:00 AM EST 40 mg Oral active Take 40 mg by mouth daily [facility] duloxetine 30 MG Delayed Release Oral Ca psule DULoxetine (CYMBALTA) 30 MG capsule DULoxetine (CYMBALTA) 30 MG capsule 11/15/2020 12:00:00 AM EST active [facility] Linagliptin 5 MG Oral Tablet [Tradjenta] Tradjenta 5 MG Trad jenta 5 MG 11/02/2020 12:00:00 AM EST 1.0 {tablet} active Tradjenta 5 MG eCW1 ([facility]) Linagliptin 5 MG Oral Tablet [Tradjenta] Tradjenta 5 MG Trad jenta 5 MG 11/02/2020 12:00:00 AM EST 1.0 {tablet} active Tradjenta 5 MG eCW1 ([facility]) Linagliptin 5 MG Oral Tablet [Tradjenta] Tradjenta 5 MG Trad jenta 5 MG 11/02/2020 12:00:00 AM EST 1.0 {tablet} active Tradjenta 5 MG eCW1 ([facility]) Linagliptin 5 MG Oral Tablet [Tradjenta] Tradjenta 5 MG Trad jenta 5 MG 11/02/2020 12:00:00 AM EST 1.0 {tablet} active Tradjenta 5 MG eCW1 ([facility]) Linagliptin 5 MG Oral Tablet [Tradjenta] Tradjenta 5 MG Trad jenta 5 MG 11/02/2020 12:00:00 AM EST 1.0 {tablet} active Tradjenta 5 MG eCW1 ([facility]) Linagliptin 5 MG Oral Tablet [Tradjenta] Tradjenta 5 MG Trad jenta 5 MG 11/02/2020 12:00:00 AM EST 1.0 {tablet} active Tradjenta 5 MG eCW1 ([facility]) Linagliptin 5 MG Oral Tablet [Tradjenta] Tradjenta 5 MG Trad jenta 5 MG 11/02/2020 12:00:00 AM EST 1.0 {tablet} active Tradjenta 5 MG eCW1 ([facility]) Linagliptin 5 MG Oral Tablet [Tradjenta] Tradjenta 5 MG Trad jenta 5 MG 11/02/2020 12:00:00 AM EST 1.0 {tablet} active Tradjenta 5 MG eCW1 ([facility]) Linagliptin 5 MG Oral Tablet [Tradjenta] TRADJENTA 5 M G TABS TRADJENTA 5 MG TABS 11/02/2020 12:00:00 AM EST 1 {tbl} Oral active Take 1 tablet by mouth daily [facility] Linagliptin 5 MG Oral Tablet [Tradjenta] Tradjenta 5 MG Trad jenta 5 MG 11/02/2020 12:00:00 AM EST 1.0 {tablet} active Tradjenta 5 MG eCW1 ([facility]) ferrous sulfate 325 MG Oral Tablet Ferrous Sulfate (IR ON) 325 (65 Fe) MG TABS Ferrous Sulfate (IRON) 325 (65 Fe) MG TABS 10/10/2020 12:00:00 AM EST 1 {tbl} Oral active Take 1 tablet by ceci th 2 (two) times a day [facility] Aspirin 81 MG Delayed Release Oral Tablet ASPIRIN LOW DOSE 81 MG EC tablet ASPIRIN LOW DOSE 81 MG EC tablet 10/10/2020 12:00:00 AM EST 81 mg Oral active Take 81 mg by mouth daily [facility] Tramadol HCl 100 MG Tramadol HCl 100 MG 09/19/2020 12:00:00 AM EST 1.0 {tablet_as_needed} suspended Tramadol HC l 100 MG eCW1 ([facility]) Tramadol HCl 100 MG Tramadol HCl 100 MG 09/19/2020 12:00:00 AM EST 1.0 {tablet_as_needed} active Tramadol HCl 100 MG eCW1 ([facility]) Tramadol HCl 100 MG Tramadol HCl 100 MG 09/19/2020 12:00:00 AM EST 1.0 {tablet_as_needed} active Tramadol HCl 100 MG eCW1 ([facility]) Tramadol HCl 100 MG Tramadol HCl 100 MG 09/19/2020 12:00:00 AM EST 1.0 {tablet_as_needed} suspended Tramadol HC l 100 MG eCW1 ([facility]) Tramadol HCl 100 MG Tramadol HCl 100 MG 09/19/2020 12:00:00 AM EST 1.0 {tablet_as_needed} active Tramadol HCl 100 MG eCW1 ([facility]) Tramadol HCl 100 MG Tramadol HCl 100 MG 09/19/2020 12:00:00 AM EST 1.0 {tablet_as_needed} suspended Tramadol HC l 100 MG eCW1 ([facility]) Tramadol HCl 100 MG Tramadol HCl 100 MG 09/19/2020 12:00:00 AM EST 1.0 {tablet_as_needed} active Tramadol HCl 100 MG eCW1 ([facility]) Tramadol HCl 100 MG Tramadol HCl 100 MG 09/19/2020 12:00:00 AM EST 1.0 {tablet_as_needed} active Tramadol HCl 100 MG eCW1 ([facility]) Tramadol HCl 100 MG Tramadol HCl 100 MG 09/19/2020 12:00:00 AM EST 1.0 {tablet_as_needed} active Tramadol HCl 100 MG eCW1 ([facility]) Tramadol HCl 100 MG Tramadol HCl 100 MG 09/19/2020 12:00:00 AM EST 1.0 {tablet_as_needed} active Tramadol HCl 100 MG eCW1 ([facility]) Tramadol HCl 100 MG Tramadol HCl 100 MG 09/19/2020 12:00:00 AM EST 1.0 {tablet_as_needed} suspended Tramadol HC l 100 MG eCW1 ([facility]) Tramadol HCl 100 MG Tramadol HCl 100 MG 09/19/2020 12:00:00 AM EST 1.0 {tablet_as_needed} active Tramadol HCl 100 MG eCW1 ([facility]) Tramadol HCl 100 MG Tramadol HCl 100 MG 09/19/2020 12:00:00 AM EST 1.0 {tablet_as_needed} suspended Tramadol HC l 100 MG eCW1 ([facility]) Tramadol HCl 100 MG Tramadol HCl 100 MG 09/19/2020 12:00:00 AM EST 1.0 {tablet_as_needed} active Tramadol HCl 100 MG eCW1 ([facility]) Tramadol HCl 100 MG Tramadol HCl 100 MG 09/19/2020 12:00:00 AM EST 1.0 {tablet_as_needed} active Tramadol HCl 100 MG eCW1 ([facility]) Tramadol HCl 100 MG Tramadol HCl 100 MG 09/19/2020 12:00:00 AM EST 1.0 {tablet_as_needed} active Tramadol HCl 100 MG eCW1 ([facility]) Tramadol HCl 100 MG Tramadol HCl 100 MG 09/19/2020 12:00:00 AM EST 1.0 {tablet_as_needed} active Tramadol HCl 100 MG eCW1 ([facility]) Tramadol HCl 100 MG Tramadol HCl 100 MG 09/19/2020 12:00:00 AM EST 1.0 {tablet_as_needed} active Tramadol HCl 100 MG eCW1 ([facility]) Tramadol HCl 100 MG Tramadol HCl 100 MG 09/19/2020 12:00:00 AM EST 1.0 {tablet_as_needed} active Tramadol HCl 100 MG eCW1 ([facility]) Tramadol HCl 100 MG Tramadol HCl 100 MG 09/19/2020 12:00:00 AM EST 1.0 {tablet_as_needed} active Tramadol HCl 100 MG eCW1 ([facility]) tramadol hydrochloride 50 MG Oral Tablet traMADol (ULT BETH) 50 MG tablet traMADol (ULTRAM) 50 MG tablet 09/19/2020 12:00:00 AM EST active TAKE 2 TABLETS BY MOUTH 4 TIMES DAILY NEEDED FOR 14 DAYS [facility] Escitalopram 5 MG Oral Tablet Escitalopram Oxalate 5 M G Escitalopram Oxalate 5 MG 09/12/2020 12:00:00 AM EST 1.0 {tablet} activ e Escitalopram Oxalate 5 MG eCW1 ([facility]) Escitalopram 5 MG Oral Tablet Escitalopram Oxalate 5 M G Escitalopram Oxalate 5 MG 09/12/2020 12:00:00 AM EST 1.0 {tablet} activ e Escitalopram Oxalate 5 MG eCW1 ([facility]) apixaban 5 MG Oral Tablet [Eliquis] Eliquis 5 MG Eliquis 5 M G 08/28/2020 12:00:00 AM EST active Eliquis 5 MG eCW1 ([facility]) doxycycline hyclate 100 MG Oral Tablet Doxycycline Hyc late 100 MG Doxycycline Hyclate 100 MG 08/28/2020 12:00:00 AM EST 1.0 {tablet} active Doxycycline Hyclate 100 MG eCW1 ([facility]) doxycycline hyclate 100 MG Oral Tablet Doxycycline Hyc late 100 MG Doxycycline Hyclate 100 MG 08/28/2020 12:00:00 AM EST 1.0 {tablet} active Doxycycline Hyclate 100 MG eCW1 ([facility]) doxycycline hyclate 100 MG Oral Tablet Doxycycline Hyc late 100 MG Doxycycline Hyclate 100 MG 08/28/2020 12:00:00 AM EST 1.0 {tablet} active Doxycycline Hyclate 100 MG eCW1 ([facility]) doxycycline hyclate 100 MG Oral Tablet Doxycycline Hyc late 100 MG Doxycycline Hyclate 100 MG 08/28/2020 12:00:00 AM EST 1.0 {tablet} active Doxycycline Hyclate 100 MG eCW1 ([facility]) apixaban 5 MG Oral Tablet [Eliquis] Eliquis 5 MG Eliquis 5 M G 08/28/2020 12:00:00 AM EST active Eliquis 5 MG eCW1 ([facility]) apixaban 5 MG Oral Tablet [Eliquis] Eliquis 5 MG Eliquis 5 M G 08/28/2020 12:00:00 AM EST active Eliquis 5 MG eCW1 ([facility]) apixaban 5 MG Oral Tablet [Eliquis] Eliquis 5 MG Eliquis 5 M G 08/28/2020 12:00:00 AM EST active Eliquis 5 MG eCW1 ([facility]) tramadol hydrochloride 50 MG Oral Tablet Tramadol HCL 07/26/2020 12:00:00 AM EDT active [facility] ([facility]) Lisinopril 10 MG Oral Tablet Lisinopril 10 MG Oral Tab let (ZESTRIL) Lisinopril 10 MG Oral Tablet (ZESTRIL) 07/07/2020 12:00:00 AM EDT 10 mg Oral active Take 1 tablet by mouth daily [facility] insulin lispro (HumaLOG) injection LOW DOSE EATING INS ULIN patients 1-8 Units [id number] 07/06/2020 06:00:00 PM EDT U Subcutaneous active 1-8 Units, Subcutaneous, Three Times Daily-With Meals, First dose on Itzel 07/06/20 at 1800, For 30 days
Nursing MUST open the 'SQ Insulin Dosing Charts' Sidebar Report, or, the Patient Summary or Summary Report within the ED.
[facility] Medication administered onsite heparin (porcine) 5000 UNIT/ML injection 5,000 Units [id number] 07/05/2020 09:00:00 AM EDT 5000 U Subcutaneous active 5,000 Units, Subcutaneous, Three Times Daily Standard, First dose on Fri07/05/20 at 0900, For 30 days [facility] Medication administered onsite Tamsulosin hydrochloride 0.4 MG Oral Capsule tamsulosi n (FLOMAX) capsule 0.4 mg tamsulosin (FLOMAX) capsule 0.4 mg 07/05/2020 09:00:00 AM EDT 0.4 mg Oral active 0.4 mg, Oral, Daily Standard, First dose on Fri07/05/20 at 0900, For 30 days
Swallow whole. Do not crush, chew or open.
[facility] Medication administered onsite gabapentin 100 MG Oral Capsule gabapentin (NEURONTIN) capsule 100 mg gabapentin (NEURONTIN) capsule 100 mg 07/05/2020 09:00:00 AM EDT 100 mg Oral active 100 mg, Oral, Three Times D aily Standard, First dose on Fri07/05/20 at 0900, For 30 days [facility] Medication administered onsite pantoprazole 40 MG Delayed Release Oral Tablet pantoprazole (PROTONIX) EC tablet 40 mg pantoprazole (PROTONIX) EC tablet 40 mg 07/05/2020 07:30:00 AM E DT 40 mg Oral active 40 mg, Ora l, Before Breakfast, First dose on Fri07/05/20 at 0730, For 30 days
Do not crush or chew
[facility] Medication administered onsite sodium chloride (preservative free) [...] 8, For 30 days [Order 6 End] [facility] Medication administered onsite insulin lispro (HUMALOG) injection LOW DOSE NPO INSULI N patients 1-5 Units [id number] 07/05/2020 12:00:00 AM EDT U Subcutaneous aborted 1-5 Units, Subcutaneous, Every 4 hours, First dose on Fri07/05/20 at 0000, For 30 days
Nursing MUST open the 'SQ Insulin Dosing Charts' Sidebar Report, or, the Patient Summary or Summary Report within the ED.
[facility] Medication administered onsite Calcium Chloride 0.0014 MEQ/ML / Potassi um Chloride 0.004 MEQ/ML / Sodium Chloride 0.103 MEQ/ML / Sodium Lactate 0.028 MEQ/ML Injectable Solution lactated ringers infusion lactated ringers infusion 07/04/2020 09:45:00 PM EDT 100 mL/h Intravenous aborted at 100 m L/hr, Intravenous, Continuous, Starting Fri07/04/20 at 2145, For 30 days [facility] Medication administered onsite Ibuprofen 400 MG Oral Tablet ibuprofen (MOTRIN) tablet 600 mg ibuprofen (MOTRIN) tablet 600 mg 07/04/2020 09:38:31 PM EDT 600 mg Oral acti ve 600 mg, Oral, Every 6 hours PRN, Headaches, Fever, Starting Fri07/04/20 at 2138, For 719 hours
Take with food.
[facility] Medication administered onsite Glucagon 1 MG Injection glucagon (human recombinant) ( GLUCAGEN) injection 1 mg glucagon (human recombinant) (GLUCAGEN) injection 1 mg 07/04/2020 09:29:30 PM EDT 1 mg Intramuscular active 1 mg, Intramuscular, PRN, for glucose <55 without IV access, Starting Fri07/04/20 at 2129, For 30 days [facility] Medication administered onsite dextrose 50 % IV solution 25 mL [id number] 07/04/2020 09:29:30 PM E DT 25 mL Intravenous active 25 mL, Intrav enous, PRN, Other, blood glucose <55, Starting Fri07/04/20 at 2128, For 30 days
Not for midline administration.
[facility] Medication administered onsite Glucose 0.417 MG/MG Oral Gel glucose (GLUTOSE) 40 % or al gel 15 g glucose (GLUTOSE) 40 % oral gel 15 g 07/04/2020 09:29:30 PM EDT 15 g Oral active 15 g, Oral, PRN, Low blood s ugar, for gluose 55-69 mg/dl and able to take PO, Starting Fri07/04/20 at 2128, For 30 days [facility] Medication administered onsite oxyCODONE (ROXICODONE) immediate release [...] Service consultation and approval.
[Order 2 End] [facility] Medication administered onsite Acetaminophen 325 MG Oral [...] mg from all sources in 24 hours.
[facility] Medication administered onsite gabapentin 100 MG Oral Capsule Gabapentin 100 MG Oral Capsule (NEURONTIN) Gabapentin 100 MG Oral Capsule (NEURONTIN) 06/20/2020 12:00:00 AM EDT 100 mg Oral active Take 1 capsule by mo uth Three times daily [facility] Aquacel-Ag Hydrofiber 3/4"X18" External [id number] 06/20/20 12:00:00 AM EDT Apply externally active Apply 1 Piece topically every other day [facility] Silver-Carboxymethylcellulose (AQUACEL- HYDROFIBER 3 /4"X18") /4"X18" MIS [id number] 06/20/2020 12:00:00 AM EDT Topical activ e Apply topically [facility] Lisinopril 10 MG Oral Tablet Lisinopril 10 MG Oral Tab let (ZESTRIL) Lisinopril 10 MG Oral Tablet (ZESTRIL) 04/12/2020 12:00:00 AM EDT 10 mg Oral aborted Take 1 tablet by mouth daily [facility] Magnesium Oxide 400 MG Oral Tablet Magne sium Oxide 400 (241.3 Mg) MG Oral Tablet (MAG-OX) Magnesium Oxide 400 (241.3 Mg) MG Oral Tablet (MAG-OX) 04/12/2020 12:00:00 AM EDT 400 mg Oral active Take 1 t ablet by mouth daily [facility] Tamsulosin hydrochloride 0.4 MG Oral [facility] Tamsulosin HCl 0.4 MG Oral Capsule (FLOMAX) Tamsulosin HCl 0.4 MG Oral Capsule (FLOMAX) 04/12/2020 12:00 :00 AM EDT 0.4 mg Oral active Take 1 capsule b y mouth daily [facility] pantoprazole 40 MG Delayed Release Oral Tablet Pantoprazole Sodium 40 MG Oral Tablet Delayed Release (PROTONIX) Pantoprazole Sodium 40 MG Oral Tablet De layed Release (PROTONIX) 04/12/2020 12:00:00 AM EDT 40 mg Oral active Take 1 tablet by mouth every morning before breakfast [facility] Tamsulosin hydrochloride 0.4 MG Oral Capsule tamsulosi n (FLOMAX) 0.4 MG CAPS tamsulosin (FLOMAX) 0.4 MG CAPS 04/12/2020 12:00:00 AM EDT 0.4 mg O ral active Take 0.4 mg by mouth [facility] Magnesium Oxide 400 MG Oral Tablet Magne sium Oxide (MAG-OX) 400 (241.3 Mg) MG tablet Magnesium Oxide (MAG-OX) 400 (241.3 Mg) MG tablet 03/21 12:00:00 AM EDT 400 mg Oral active Take 400 mg by [facility] pantoprazole 40 MG Delayed Release Oral Tablet pantoprazole (PROTONIX) 40 MG tablet pantoprazole (PROTONIX) 40 MG tablet 04/12/2020 12:00:00 AM EDT 40 mg Oral active Take 40 mg by mouth [facility] gabapentin 100 MG Oral Capsule Gabapentin 100 MG Oral Capsule (NEURONTIN) Gabapentin 100 MG Oral Capsule (NEURONTIN) 04/11/2020 12:00:00 AM EDT 100 mg Oral active Take 1 capsule by [facility] Three times daily [facility] Docusate Sodium 100 MG Oral Capsule Docu sate Sodium 100 MG Oral Capsule (COLACE) Docusate Sodium 100 MG Oral Capsule (COLACE) 04/11/2020 12:00:00 AM EDT 100 mg Oral active Take 1 capsule by mouth Two Times Daily for 10 days [facility] Bisacodyl 10 MG Rectal Suppository Bisac odyl 10 MG Rectal Suppository (DULCOLAX) Bisacodyl 10 MG Rectal Suppository (DULCOLAX) 04/11/2020 12:00:0 0 AM EDT [address] 1 ann ppository rectally daily as needed for Constipation for up to 10 days [facility] Oxycodone Hydrochloride 5 MG Oral Tablet oxyCODONE HCl 5 MG Oral Tablet (ROXICODONE) oxyCODONE HCl 5 MG Oral Tablet (ROXICODONE) 04/11/2020 12:00:00 AM EDT 5 mg Oral active Take 1 t ablet by mouth every 4 (four) hours as needed for up to 3 days, Max Daily Dose: 30 mg [facility] sennosides, [facility] 8.6 MG Oral Tablet Senna 8.6 MG Oral T ablet Senna 8.6 MG Oral Tablet 04/11/2020 12:00:00 AM EDT 2 {tbl} Oral active Take 2 tablets by mouth nightly [facility] Rivaroxaban 2.5 MG Oral Tablet (XARELTO) [id number] 04/11/2020 12 :00:00 AM EDT 2.5 mg Oral active Take 1 tablet by mouth T wo Times Daily [facility] sennosides, [facility] 8.6 MG Oral Tablet senna (SENOKOT) 8.6 MG TABS senna (SENOKOT) 8.6 MG TABS 04/11/2020 12:00:00 AM EDT 2 {tbl} Oral activ e Take 2 tablets by mouth [facility] oxyCODONE (ROXICODONE) immediate release tablet 5 mg [...] Service consultation and approval.
[Order 2 End] [facility] Medication administered onsite insulin lispro (HumaLOG) injection MEDIU M DOSE EATING INSULIN patients 1-16 Units [id number] 04/10/2020 09:45:00 AM EDT Subcutaneous active 1- 16 Units, Subcutaneous, Three Times Daily-With Meals, First dose (after last modification) on Fri04/10/20 at 0945, For 30 days
Nursing MUST open the 'SQ Insulin Dosing Charts' Sidebar Report, or, the Patient Summary or Summary Report within the ED.
[facility] Medication administered onsite Bisacodyl 10 MG Rectal Suppository bisacodyl (DULCOLAX ) suppository 10 mg bisacodyl (DULCOLAX) suppository 10 mg 04/09/2020 10:21:17 AM EDT 10 mg Rectal active 10 mg, Rectal, Daily PRN, Constipation, Starting 04/09/20 at 1021, For 30 days [facility] Medication administered onsite sennosides, [facility] 8.6 MG Oral Tablet senna tablet 2 tablet sen na tablet 2 tablet 04/08/2020 10:00:00 PM EDT 2 {tbl} Oral active 2 tablet, Oral, Nightly, First dose on 04/08/20 at 2200, For 30 days [facility] Medication administered onsite Docusate Sodium 100 MG Oral Capsule docusate sodium (C OLACE) capsule 100 mg docusate sodium (COLACE) capsule 100 mg 04/08/2020 09:00:00 PM EDT 100 mg Oral active 100 mg, Oral, 2 Times Daily, First dose on 04/08/20 at 2100, For 30 days [facility] Medication administered onsite Magnesium Oxide 400 MG Oral Tablet Magnesium Oxide (MA G-OX) tablet 400 mg Magnesium Oxide (MAG-OX) tablet 400 mg 04/07/2020 09:00:00 AM EDT 4 00 mg Oral active 400 mg, Oral, D aily Standard, First dose on Fri04/07/20 at 0900, For 30 days [facility] Medication administered onsite 50 ML Magnesium Sulfate 40 MG/ML Injecti on magnesium sulfate infusion 2 g/50 mL (premix) magnesium sulfate infusion 2 g/50 mL (premix) 04/07/20 07:45:00 AM EDT 16 meq Intravenous completed 16 mEq, Intravenous, Administer over 60 Minutes, Once, Fri04/07/20 at 0745, For 1 dose
each 8 mEq equivalent to 1 gm
[facility] Medication administered onsite Tamsulosin hydrochloride 0.4 MG Oral Capsule tamsulosi n (FLOMAX) capsule 0.4 mg tamsulosin (FLOMAX) capsule 0.4 mg 04/06/2020 09:00:00 AM EDT 0.4 mg Oral active 0.4 mg, Oral, Daily Standard, First dose on Itzel 04/06/20 at 0900, For 30 days
Swallow whole. Do not crush, chew or open.
[facility] Medication administered onsite rivaroxaban (XARELTO) tablet 2.5 mg [id number] 04/06/2020 09:00:00 AM EDT 2.5 mg Oral active 2.5 mg, Oral, 2 Times Daily, First dose on Itzel 04/06/20 at 0900, For 30 days [facility] Medication administered onsite dextrose 5 % and sodium chloride 0.45 % infusion [id number] 04/05/2020 06:00:00 AM EDT Intravenous aborted at 50 mL/hr, Intravenous, Continuous, Starting Fri04/05/20 at 0600, For 30 days [facility] Medication administered onsite chlorhexidine gluconate 40 MG/ML Medicat ed Liquid Soap chlorhexidine (HIBICLENS) 4 % liquid chlorhexidine (HIBICLENS) 4 % liquid 04/04/2020 09:00:00 PM EDT Topical aborted Topical, 2 Madan es Daily, First dose on Fri04/04/20 at 2100, For 2 doses
To BLE hs on 04/04 and morning of 04/05
[facility] Medication administered onsite Acetaminophen 325 MG Oral Tablet acetaminophen (TYLENO L) tablet 650 mg acetaminophen (TYLENOL) tablet 650 mg 04/04/2020 04:58:47 AM EDT 65 0 mg Oral active 650 mg, Oral, E very 6 hours PRN, pain, Starting Fri04/04/20 at 0458, For 30 days
Maximum daily dose of acetaminophen is 3,000 mg from all sources in 24 hours.
[facility] Medication administered onsite 0.4 ML Enoxaparin sodium [...] 10-12 hours prior to removing epidural catheter.
[facility] Medication administered onsite Lisinopril 10 MG Oral Tablet lisinopril (ZESTRIL) tabl et 10 mg lisinopril (ZESTRIL) tablet 10 mg 04/03/2020 09:00:00 AM EDT 10 mg Oral active 10 mg, Oral, Daily Standard, First dose on Fri04/03/20 at 0900, For 30 days
Check vital signs before administering
[facility] Medication administered onsite pantoprazole (PROTONIX) injection 40 [...] not crush or chew
[Order 2 End] [facility] Medication administered onsite magnesium sulfate in dextrose 5 % infusion (premix) 8 mEq [id number] 04/03/2020 05:30:00 AM EDT 8 meq Intravenous completed 8 mEq, Intravenous, Administer over 60 Minutes, Once, Fri04/03/20 at 0530, For 1 dose
each 8 mEq equivalent to 1 gm
[facility] Medication administered onsite gabapentin 100 MG Oral Capsule gabapentin (NEURONTIN) capsule 100 mg gabapentin (NEURONTIN) capsule 100 mg 04/02/2020 05:00:00 PM EDT 100 mg Oral active 100 mg, Oral, Three Times D aily Standard, First dose on Fri04/02/20 at 1700, For 30 days [facility] Medication administered onsite insulin lispro (HumaLOG) injection LOW DOSE EATING INS ULIN patients 1-8 Units [id number] 04/02/2020 01:00:00 PM EDT Subcutaneous aborted 1-8 Units, Subcutaneous, Three Times Daily-With Meals, First dose on Fri04/02/20 at 1300, For 30 days
Nursing MUST open the 'SQ Insulin Dosing Charts' Sidebar Report, or, the Patient Summary or Summary Report within the ED.
[facility] Medication administered onsite Calcium Chloride 0.0014 MEQ/ML / Potassi um Chloride 0.004 MEQ/ML / Sodium Chloride 0.103 MEQ/ML / Sodium Lactate 0.028 MEQ/ML Injectable Solution lactated ringers infusion lactated ringers infusion 04/02/2020 12:15:00 PM EDT Intravenous aborted at 125 mL/hr, Intravenous, Continuous, Starting [place] 04/02/20 at 1215, For 30 days [facility] Medication administered onsite dextrose 50 % IV solution 25 mL 5130-1722-87 04/02/2020 12:06:19 PM E DT 25 mL Intravenous active 25 mL, Intrav enous, PRN, Other, blood glucose <55, Starting [place] 04/02/20 at 1206, For 30 days
Not for midline administration.
[facility] Medication administered onsite Glucose 0.417 MG/MG Oral Gel glucose (GLUTOSE) 40 % or al gel 15 g glucose (GLUTOSE) 40 % oral gel 15 g 04/02/2020 12:06:19 PM EDT 15 g Oral active 15 g, Oral, PRN, Low blood s ugar, for gluose 55-69 mg/dl and able to take PO, Starting [place] 04/02/20 at 1206, For 30 days [facility] Medication administered onsite Glucagon 1 MG Injection glucagon (human recombinant) ( GLUCAGEN) injection 1 mg glucagon (human recombinant) (GLUCAGEN) injection 1 mg 04/02/2020 12:06:19 PM EDT 1 mg Intramuscular active 1 mg, Intramuscular, PRN, for glucose <55 without IV access, Starting [place] 04/02/20 at 1206, For 30 days [facility] Medication administered onsite 1 ML heparin sodium, porcine 1000 UNT/ML Injection heparin (porcine) 1000 units/mL injection 5,400 Units heparin (porcine) 1000 units/mL injectio n 5,400 Units 04/02/2020 09:00:00 AM EDT 5400 U Intravenous comple damian 5,400 Units, Intravenous, Once, [place] 04/02/20 at 0900, For 1 dose
Adult High Dose / With Bolus Protocol.
[facility] Medication administered onsite 500 ML heparin sodium, porcine 50 UNT/ML Injection heparin in NaCl 0.45 % infusion 50 units/mL heparin in NaCl 0.45 % infusion 50 units/mL 04/02/2020 09:00:00 AM EDT 1350 U/h Intravenous aborted 1,350 Units/hr (27 mL/hr), Intravenous, at 27 mL/hr, Continuous, Starting 04/02/20 at 0900, For 30 days
Adult High Dose / With Bolus Protocol.
[facility] Medication administered onsite Lisinopril 10 MG Oral Tablet Lisinopril 10 MG 03/17/2020 12:00:00 A M EDT 1.0 {tablet} active Lisinopril 10 MG eCW1 ( [facility]) Lisinopril 5 MG Oral Tablet Lisinopril 5 MG 03/17/2020 12:00:00 AM EDT 1.0 {tablet} active Lisinopril 5 MG eCW1 ([facility]) Lisinopril 10 MG Oral Tablet Lisinopril 10 MG 03/17/2020 12:00:00 A M EDT 1.0 {tablet} active Lisinopril 10 MG eCW1 ( [facility]) Lisinopril 5 MG Oral Tablet Lisinopril 5 MG 03/17/2020 12:00:00 AM EDT 1.0 {tablet} active Lisinopril 5 MG eCW1 ([facility]) Lisinopril 5 MG Oral Tablet Lisinopril 5 MG 03/17/2020 12:00:00 AM EDT active 1 tablet eCW1 ([facility]) Lisinopril 5 MG Oral Tablet Lisinopril 5 MG 03/17/2020 12:00:00 AM EDT 1.0 {tablet} active Lisinopril 5 MG eCW1 ([facility]) Lisinopril 10 MG Oral Tablet Lisinopril 10 MG 03/17/2020 12:00:00 A M EDT 1.0 {tablet} active Lisinopril 10 MG eCW1 ( [facility]) Lisinopril 10 MG Oral Tablet Lisinopril 10 MG 03/17/2020 12:00:00 A M EDT 1.0 {tablet} active Lisinopril 10 MG eCW1 ( [facility]) Lisinopril 10 MG Oral Tablet Lisinopril 10 MG 03/17/2020 12:00:00 A M EDT 1.0 {tablet} active Lisinopril 10 MG eCW1 ( [facility]) Lisinopril 10 MG Oral Tablet Lisinopril 10 MG 03/17/2020 12:00:00 A M EDT 1.0 {tablet} active Lisinopril 10 MG eCW1 ( [facility]) Lisinopril 10 MG Oral Tablet Lisinopril 10 MG 03/17/2020 12:00:00 A M EDT 1.0 {tablet} active Lisinopril 10 MG eCW1 ( [facility]) Lisinopril 10 MG Oral Tablet Lisinopril 10 MG 03/17/2020 12:00:00 A M EDT 1.0 {tablet} active Lisinopril 10 MG eCW1 ( [facility]) Lisinopril 10 MG Oral Tablet Lisinopril 10 MG 03/17/2020 12:00:00 A M EDT 1.0 {tablet} active Lisinopril 10 MG eCW1 ( [facility]) Lisinopril 10 MG Oral Tablet Lisinopril 10 MG 03/17/2020 12:00:00 A M EDT 1.0 {tablet} active Lisinopril 10 MG eCW1 ( [facility]) Lisinopril 10 MG Oral Tablet Lisinopril 10 MG 03/17/2020 12:00:00 A M EDT 1.0 {tablet} active Lisinopril 10 MG eCW1 ( [facility]) Lisinopril 10 MG Oral Tablet Lisinopril 10 MG 03/17/2020 12:00:00 A M EDT 1.0 {tablet} active Lisinopril 10 MG eCW1 ( [facility]) Lisinopril 10 MG Oral Tablet Lisinopril 10 MG 03/17/2020 12:00:00 A M EDT 1.0 {tablet} active Lisinopril 10 MG eCW1 ( [facility]) Lisinopril 10 MG Oral Tablet Lisinopril 10 MG 03/17/2020 12:00:00 A M EDT 1.0 {tablet} active Lisinopril 10 MG eCW1 ( [facility]) Lisinopril 10 MG Oral Tablet Lisinopril 10 MG 03/17/2020 12:00:00 A M EDT 1.0 {tablet} active Lisinopril 10 MG eCW1 ( [facility]) Lisinopril 10 MG Oral Tablet Lisinopril 10 MG 03/17/2020 12:00:00 A M EDT 1.0 {tablet} active Lisinopril 10 MG eCW1 ( [facility]) Lisinopril 10 MG Oral Tablet Lisinopril 10 MG 03/17/2020 12:00:00 A M EDT 1.0 {tablet} active Lisinopril 10 MG eCW1 ( [facility]) Lisinopril 10 MG Oral Tablet Lisinopril 10 MG 03/17/2020 12:00:00 A M EDT 1.0 {tablet} active Lisinopril 10 MG eCW1 ( [facility]) Lisinopril 5 MG Oral Tablet Lisinopril 5 MG 03/17/2020 12:00:00 AM EDT 1.0 {tablet} active Lisinopril 5 MG eCW1 ([facility]) Lisinopril 10 MG Oral Tablet Lisinopril 10 MG 03/17/2020 12:00:00 A M EDT 1.0 {tablet} active Lisinopril 10 MG eCW1 ( [facility]) Lisinopril 10 MG Oral Tablet Lisinopril 10 MG 03/17/2020 12:00:00 A M EDT 1.0 {tablet} active Lisinopril 10 MG eCW1 ( [facility]) Lisinopril 10 MG Oral Tablet Lisinopril 10 MG 03/17/2020 12:00:00 A M EDT 1.0 {tablet} active Lisinopril 10 MG eCW1 ( [facility]) Lisinopril 10 MG Oral Tablet Lisinopril 10 MG 03/17/2020 12:00:00 A M EDT 1.0 {tablet} active Lisinopril 10 MG eCW1 ( [facility]) Lisinopril 10 MG Oral Tablet Lisinopril 10 MG 03/17/2020 12:00:00 A M EDT 1.0 {tablet} active Lisinopril 10 MG eCW1 ( [facility]) Lisinopril 10 MG Oral Tablet Lisinopril 10 MG 03/17/2020 12:00:00 A M EDT 1.0 {tablet} active Lisinopril 10 MG eCW1 ( [facility]) Lisinopril 10 MG Oral Tablet Lisinopril 10 MG 03/17/2020 12:00:00 A M EDT 1.0 {tablet} active Lisinopril 10 MG eCW1 ( [facility]) Lisinopril 5 MG Oral Tablet Lisinopril 5 MG 03/17/2020 12:00:00 AM EDT 1.0 {tablet} active Lisinopril 5 MG eCW1 ([facility]) Lisinopril 5 MG Oral Tablet Lisinopril 5 MG 03/17/2020 12:00:00 AM EDT 1.0 {tablet} active Lisinopril 5 MG eCW1 ([facility]) Lisinopril 5 MG Oral Tablet Lisinopril 5 MG 03/17/2020 12:00:00 AM EDT 1.0 {tablet} active Lisinopril 5 MG eCW1 ([facility]) Lisinopril 10 MG Oral Tablet Lisinopril 10 MG 03/17/2020 12:00:00 A M EDT 1.0 {tablet} active Lisinopril 10 MG eCW1 ( [facility]) Lisinopril 10 MG Oral Tablet Lisinopril 10 MG 03/17/2020 12:00:00 A M EDT 1.0 {tablet} active Lisinopril 10 MG eCW1 ( [facility]) Lisinopril 5 MG Oral Tablet Lisinopril 5 MG 03/17/2020 12:00:00 AM EDT 1.0 {tablet} active Lisinopril 5 MG eCW1 ([facility]) Lisinopril 5 MG Oral Tablet Lisinopril 5 MG 03/17/2020 12:00:00 AM EDT 1.0 {tablet} active Lisinopril 5 MG eCW1 ([facility]) Lisinopril 10 MG Oral Tablet Lisinopril 10 MG 03/17/2020 12:00:00 A M EDT 1.0 {tablet} active Lisinopril 10 MG eCW1 ( [facility]) Lisinopril 10 MG Oral Tablet Lisinopril 10 MG 03/17/2020 12:00:00 A M EDT 1.0 {tablet} active Lisinopril 10 MG eCW1 ( [facility]) Lisinopril 10 MG Oral Tablet Lisinopril 10 MG 03/17/2020 12:00:00 A M EDT 1.0 {tablet} active Lisinopril 10 MG eCW1 ( [facility]) Lisinopril 10 MG Oral Tablet Lisinopril 10 MG 03/17/2020 12:00:00 A M EDT 1.0 {tablet} active Lisinopril 10 MG eCW1 ( [facility]) Lisinopril 5 MG Oral Tablet Lisinopril 5 MG 03/17/2020 12:00:00 AM EDT 1.0 {tablet} active Lisinopril 5 MG eCW1 ([facility]) Lisinopril 10 MG Oral Tablet Lisinopril 10 MG 03/17/2020 12:00:00 A M EDT 1.0 {tablet} active Lisinopril 10 MG eCW1 ( [facility]) Lisinopril 10 MG Oral Tablet Lisinopril 10 MG 03/17/2020 12:00:00 A M EDT 1.0 {tablet} active Lisinopril 10 MG eCW1 ( [facility]) Lisinopril 5 MG Oral Tablet Lisinopril 5 MG 03/17/2020 12:00:00 AM EDT 1.0 {tablet} active Lisinopril 5 MG eCW1 ([facility]) Lisinopril 10 MG Oral Tablet Lisinopril 10 MG 03/17/2020 12:00:00 A M EDT 1.0 {tablet} active Lisinopril 10 MG eCW1 ( [facility]) Sulfamethoxazole 800 MG / Trimethoprim 1 60 MG Oral Tablet Sulfamethoxazole- Trimethoprim 800-160 MG Sulfamethoxazole-Trimethoprim 800-160 MG 03/16/2020 12:00:00 AM EDT 1.0 {tablet} suspended Sulfamethoxazole-Trimethoprim 800-160 MG eCW1 ([facility]) Sulfamethoxazole 800 MG / Trimethoprim 1 60 MG Oral Tablet Sulfamethoxazole- Trimethoprim 800-160 MG Sulfamethoxazole-Trimethoprim 800-160 MG 03/16/2020 12:00:00 AM EDT 1.0 {tablet} suspended Sulfamethoxazole-Trimethoprim 800-160 MG eCW1 ([facility]) Sulfamethoxazole 800 MG / Trimethoprim 1 60 MG Oral Tablet Sulfamethoxazole- Trimethoprim 800-160 MG Sulfamethoxazole-Trimethoprim 800-160 MG 03/16/2020 12:00:00 AM EDT 1.0 {tablet} active Sulfamethoxazole-Trimethoprim 800-160 MG eCW1 ([facility]) Sulfamethoxazole 800 MG / Trimethoprim 1 60 MG Oral Tablet Sulfamethoxazole- Trimethoprim 800-160 MG Sulfamethoxazole-Trimethoprim 800-160 MG 03/16/2020 12:00:00 AM EDT 1.0 {tablet} suspended Sulfamethoxazole-Trimethoprim 800-160 MG eCW1 ([facility]) Sulfamethoxazole 800 MG / Trimethoprim 1 60 MG Oral Tablet Sulfamethoxazole- Trimethoprim 800-160 MG Sulfamethoxazole-Trimethoprim 800-160 MG 03/16/2020 12:00:00 AM EDT 1.0 {tablet} active Sulfamethoxazole-Trimethoprim 800-160 MG eCW1 ([facility]) Sulfamethoxazole 800 MG / Trimethoprim 1 60 MG Oral Tablet Sulfamethoxazole- Trimethoprim 800-160 MG Sulfamethoxazole-Trimethoprim 800-160 MG 03/16/2020 12:00:00 AM EDT 1.0 {tablet} active Sulfamethoxazole-Trimethoprim 800-160 MG eCW1 ([facility]) Sulfamethoxazole 800 MG / Trimethoprim 1 60 MG Oral Tablet Sulfamethoxazole- Trimethoprim 800-160 MG Sulfamethoxazole-Trimethoprim 800-160 MG 03/16/2020 12:00:00 AM EDT 1.0 {tablet} suspended Sulfamethoxazole-Trimethoprim 800-160 MG eCW1 ([facility]) Sulfamethoxazole 800 MG / Trimethoprim 1 60 MG Oral Tablet Sulfamethoxazole- Trimethoprim 800-160 MG Sulfamethoxazole-Trimethoprim 800-160 MG 03/16/2020 12:00:00 AM EDT 1.0 {tablet} active Sulfamethoxazole-Trimethoprim 800-160 MG eCW1 ([facility]) Sulfamethoxazole 800 MG / Trimethoprim 1 60 MG Oral Tablet Sulfamethoxazole- Trimethoprim 800-160 MG Sulfamethoxazole-Trimethoprim 800-160 MG 03/16/2020 12:00:00 AM EDT 1.0 {tablet} active Sulfamethoxazole-Trimethoprim 800-160 MG eCW1 ([facility]) Sulfamethoxazole 800 MG / Trimethoprim 1 60 MG Oral Tablet Sulfamethoxazole- Trimethoprim 800-160 MG Sulfamethoxazole-Trimethoprim 800-160 MG 03/16/2020 12:00:00 AM EDT 1.0 {tablet} active Sulfamethoxazole-Trimethoprim 800-160 MG eCW1 ([facility]) Sulfamethoxazole 800 MG / Trimethoprim 1 60 MG Oral Tablet Sulfamethoxazole- Trimethoprim 800-160 MG Sulfamethoxazole-Trimethoprim 800-160 MG 03/16/2020 12:00:00 AM EDT 1.0 {tablet} active Sulfamethoxazole-Trimethoprim 800-160 MG eCW1 ([facility]) Sulfamethoxazole 800 MG / Trimethoprim 1 60 MG Oral Tablet Sulfamethoxazole- Trimethoprim 800-160 MG Sulfamethoxazole-Trimethoprim 800-160 MG 03/16/2020 12:00:00 AM EDT 1.0 {tablet} active Sulfamethoxazole-Trimethoprim 800-160 MG eCW1 ([facility]) Sulfamethoxazole 800 MG / Trimethoprim 1 60 MG Oral Tablet Sulfamethoxazole- Trimethoprim 800-160 MG Sulfamethoxazole-Trimethoprim 800-160 MG 03/16/2020 12:00:00 AM EDT 1.0 {tablet} suspended Sulfamethoxazole-Trimethoprim 800-160 MG eCW1 ([facility]) Sulfamethoxazole 800 MG / Trimethoprim 1 60 MG Oral Tablet Sulfamethoxazole- Trimethoprim 800-160 MG Sulfamethoxazole-Trimethoprim 800-160 MG 03/16/2020 12:00:00 AM EDT 1.0 {tablet} active Sulfamethoxazole-Trimethoprim 800-160 MG eCW1 ([facility]) Sulfamethoxazole 800 MG / Trimethoprim 1 60 MG Oral Tablet Sulfamethoxazole- Trimethoprim 800-160 MG Sulfamethoxazole-Trimethoprim 800-160 MG 03/16/2020 12:00:00 AM EDT 1.0 {tablet} active Sulfamethoxazole-Trimethoprim 800-160 MG eCW1 ([facility]) Sulfamethoxazole 800 MG / Trimethoprim 1 60 MG Oral Tablet Sulfamethoxazole- Trimethoprim 800-160 MG Sulfamethoxazole-Trimethoprim 800-160 MG 03/16/2020 12:00:00 AM EDT 1.0 {tablet} suspended Sulfamethoxazole-Trimethoprim 800-160 MG eCW1 ([facility]) Sulfamethoxazole 800 MG / Trimethoprim 1 60 MG Oral Tablet Sulfamethoxazole- Trimethoprim 800-160 MG Sulfamethoxazole-Trimethoprim 800-160 MG 03/16/2020 12:00:00 AM EDT 1.0 {tablet} suspended Sulfamethoxazole-Trimethoprim 800-160 MG eCW1 ([facility]) Sulfamethoxazole 800 MG / Trimethoprim 1 60 MG Oral Tablet Sulfamethoxazole- Trimethoprim 800-160 MG Sulfamethoxazole-Trimethoprim 800-160 MG 03/16/2020 12:00:00 AM EDT 1.0 {tablet} suspended Sulfamethoxazole-Trimethoprim 800-160 MG eCW1 ([facility]) Sulfamethoxazole 800 MG / Trimethoprim 1 60 MG Oral Tablet Sulfamethoxazole- Trimethoprim 800-160 MG Sulfamethoxazole-Trimethoprim 800-160 MG 03/16/2020 12:00:00 AM EDT 1.0 {tablet} active Sulfamethoxazole-Trimethoprim 800-160 MG eCW1 ([facility]) gabapentin 300 MG Oral Capsule Gabapentin 300 MG Gabapentin 300 MG 02/29/2020 12:00:00 AM EDT active 1 capsul e eCW1 ([facility]) gabapentin 100 MG Oral Capsule Gabapentin 100 MG Gabapentin 100 MG 02/29/2020 12:00:00 AM EDT 1.0 {capsule} active G abapentin 100 MG eCW1 ([facility]) gabapentin 300 MG Oral Capsule Gabapentin 300 MG Gabapentin 300 MG 02/29/2020 12:00:00 AM EDT 1.0 {capsule} active G abapentin 300 MG eCW1 ([facility]) gabapentin 100 MG Oral Capsule Gabapentin 100 MG Gabapentin 100 MG 02/29/2020 12:00:00 AM EDT 1.0 {capsule} active G abapentin 100 MG eCW1 ([facility]) gabapentin 300 MG Oral Capsule Gabapentin 300 MG Gabapentin 300 MG 02/29/2020 12:00:00 AM EDT 1.0 {capsule} active G abapentin 300 MG eCW1 ([facility]) gabapentin 300 MG Oral Capsule Gabapentin 300 MG Gabapentin 300 MG 02/29/2020 12:00:00 AM EDT 1.0 {capsule} active G abapentin 300 MG eCW1 ([facility]) gabapentin 300 MG Oral Capsule Gabapentin 300 MG Gabapentin 300 MG 02/29/2020 12:00:00 AM EDT 1.0 {capsule} active G abapentin 300 MG eCW1 ([facility]) gabapentin 100 MG Oral Capsule Gabapentin 100 MG Gabapentin 100 MG 02/29/2020 12:00:00 AM EDT 1.0 {capsule} active G abapentin 100 MG eCW1 ([facility]) gabapentin 300 MG Oral Capsule Gabapentin 300 MG Gabapentin 300 MG 02/29/2020 12:00:00 AM EDT 1.0 {capsule} active G abapentin 300 MG eCW1 ([facility]) gabapentin 100 MG Oral Capsule Gabapentin 100 MG Gabapentin 100 MG 02/29/2020 12:00:00 AM EDT 1.0 {capsule} active G abapentin 100 MG eCW1 ([facility]) gabapentin 300 MG Oral Capsule Gabapentin 300 MG Gabapentin 300 MG 02/29/2020 12:00:00 AM EDT 1.0 {capsule} active G abapentin 300 MG eCW1 ([facility]) gabapentin 100 MG Oral Capsule Gabapentin 100 MG Gabapentin 100 MG 02/29/2020 12:00:00 AM EDT 1.0 {capsule} active G abapentin 100 MG eCW1 ([facility]) gabapentin 300 MG Oral Capsule Gabapentin 300 MG Gabapentin 300 MG 02/29/2020 12:00:00 AM EDT 1.0 {capsule} active G abapentin 300 MG eCW1 ([facility]) gabapentin 100 MG Oral Capsule Gabapentin 100 MG Gabapentin 100 MG 02/29/2020 12:00:00 AM EDT 1.0 {capsule} active G abapentin 100 MG eCW1 ([facility]) gabapentin 300 MG Oral Capsule Gabapentin 300 MG Gabapentin 300 MG 02/29/2020 12:00:00 AM EDT active 1 capsul e eCW1 ([facility]) gabapentin 300 MG Oral Capsule Gabapentin 300 MG Gabapentin 300 MG 02/29/2020 12:00:00 AM EDT 1.0 {capsule} active G abapentin 300 MG eCW1 ([facility]) gabapentin 300 MG Oral Capsule Gabapentin 300 MG Gabapentin 300 MG 02/29/2020 12:00:00 AM EDT active 1 capsul e eCW1 ([facility]) gabapentin 100 MG Oral Capsule Gabapentin 100 MG Gabapentin 100 MG 02/29/2020 12:00:00 AM EDT 1.0 {capsule} active G abapentin 100 MG eCW1 ([facility]) gabapentin 100 MG Oral Capsule Gabapentin 100 MG Gabapentin 100 MG 02/29/2020 12:00:00 AM EDT 1.0 {capsule} active G abapentin 100 MG eCW1 ([facility]) gabapentin 300 MG Oral Capsule Gabapentin 300 MG Gabapentin 300 MG 02/29/2020 12:00:00 AM EDT 1.0 {capsule} active G abapentin 300 MG eCW1 ([facility]) gabapentin 100 MG Oral Capsule Gabapentin 100 MG Gabapentin 100 MG 02/29/2020 12:00:00 AM EDT 1.0 {capsule} active G abapentin 100 MG eCW1 ([facility]) gabapentin 100 MG Oral Capsule Gabapentin 100 MG Gabapentin 100 MG 02/29/2020 12:00:00 AM EDT 1.0 {capsule} active G abapentin 100 MG eCW1 ([facility]) gabapentin 100 MG Oral Capsule Gabapentin 100 MG Gabapentin 100 MG 02/29/2020 12:00:00 AM EDT 1.0 {capsule} active G abapentin 100 MG eCW1 ([facility]) gabapentin 100 MG Oral Capsule Gabapentin 100 MG Gabapentin 100 MG 02/29/2020 12:00:00 AM EDT 1.0 {capsule} active G abapentin 100 MG eCW1 ([facility]) gabapentin 300 MG Oral Capsule Gabapentin 300 MG Gabapentin 300 MG 02/29/2020 12:00:00 AM EDT 1.0 {capsule} active G abapentin 300 MG eCW1 ([facility]) gabapentin 300 MG Oral Capsule Gabapentin 300 MG Gabapentin 300 MG 02/29/2020 12:00:00 AM EDT 1.0 {capsule} active G abapentin 300 MG eCW1 ([facility]) Cephalexin 500 MG Oral Capsule Cephalexin 500 MG 02/22/2020 12:00:00 AM EDT active 1 capsule eCW1 ([facility]) Metformin hydrochloride 500 MG Oral Tablet metFORMIN ( GLUCOPHAGE) 500 MG tablet metFORMIN (GLUCOPHAGE) 500 MG tablet 10/22/2019 12:00:00 AM EST aborted TAKE 2 TABLETS BY MOUTH TWICE DA LUCIAN WITH A MEAL FOR 30 DAYS [facility] Glipizide 5 MG Oral Tablet glipiZIDE (GLUCOTROL) 5 MG tablet glipiZIDE (GLUCOTROL) 5 MG tablet 09/21/2019 12:00:00 AM EST aborted [facility] glucose blood (ACCU-CHEK VAHE) test strip [id number] 03/01/2015 12:0 0:00 AM EDT aborted ACCU-CHEK VAHE IN V ITRO STRIP [facility] Lisinopril 5 MG Oral Tablet lisinopril (PRINIVIL,ZESTR IL) 5 MG tablet lisinopril (PRINIVIL,ZESTRIL) 5 MG tablet 5 mg Oral aborted Take 5 mg by mouth daily [facility] gabapentin 300 MG Oral Capsule gabapentin (NEURONTIN) 300 MG capsule gabapentin (NEURONTIN) 300 MG capsule 300 mg Oral aborted Take 300 mg by mouth Two Times Daily [facility] Insurance Providers Payer name Policy type / Coverage type Policy ID Covered republican ID Covered republican's relationship to castellanos Policy Castellanos Plan Information R [facility] [id number] MEDICARE [id number] SP [id number] MEDICARE PART A -O/P [id number] 18 [id number] R [facility] [id number] [facility] U [id number] Spouse [id number] MEDICARE A [id number] Self [id number] [facility] [id number] MEDICARE [id number] [facility] [id number] [facility] [id number] MEDICARE [id number] [place] [id number] [id number] R O [id number] S [id number] MEDICARE C [id number] S [id number] UMR [id number] SPO [id number] MEDICARE - [place] [id number] S [id number] [facility] [facility] [id number] S [id number] MEDICARE [id number] SP [id number] A ANSI-Commercial [id number] ANSI-Commercial [id number] ANSI-Medicare Part B [id number] ANSI-Commercial [id number] ANSI-Commercial [id number] ANSI-Medicare Part B [id number] ANSI-Medicare Part B [id number] ANSI-Commercial [id number] ANSI-Commercial [id number] ANSI-Medicare Part B [id number] ANSI-Commercial [id number] ANSI-Commercial [id number] ANSI-Commercial [id number] ANSI-Medicare Part B [id number] ANSI-Commercial [id number] ANSI-Commercial [id number] ANSI-Commercial [id number] ANSI-Medicare Part B [id number] Medicare Dme Medigap Part B [id number] Self [id number] Medicare Medicare Primary [id number] Self [id number] Umr Commercial [id number] Family Dependent [id number] Umr (pr) Medigap Part B [id number] Self [id number] Medicare Dme Supplies Medigap Part B [id number] Self [id number] [place] [id number] Self [id number] [place] (pr) Medigap Part B [id number] Family Dependent [id number] Umr (pr) Medigap Part B [id number] Self Y1945 6188 Medicare Dme Supplies Medigap Part B [id number] Self [id number] [place] [id number] Self [id number] ANSI-Commercial [id number] ANSI-Commercial [id number]-[id number] ANSI-Medicare Part B [id number] Umr (pr) Medigap Part B [id number] Self Y1945 6188 [place] [id number] Self [id number] ANSI-Commercial [id number] ANSI-Commercial [id number]-[id number]-[id number] ANSI-Medicare Part B [id number] ANSI-Commercial [id number]-0157-d35q-[id number]-f2er-[id number] ANSI-Medicare Part B [id number] ANSI-Commercial yeddvo0x-[id number]-[id number] Medicare [facility] Part B [id number] Self [id number] Medicare Medicare Primary [id number] Self [id number] ANSI-Medicare Part B [id number] ANSI-Commercial [id number]-[id number]-[id number]-[id number] ANSI-Commercial [id number]-426l-[id number] [id number] [place] [id number] Self [id number] ANSI-Medicare Part B [id number] ANSI-Commercial [id number] ANSI-Commercial p12233c4-75fg-3b62-[id number]-5d67-g007-[id number] ANSI-Medicare Part B [id number] ANSI-Commercial [id number]-a345-2273-[id number] 69871j2j-h659-8571-[id number] ANSI-Commercial uv94tbj0-3400-0pqe-d8nz-[id number] ht02eih1-2749-5rrl-n7jg-[id number] ANSI-Medicare Part B [id number] ANSI-Commercial z9w4zb8k-5z0h-0m5l-[id number] ANSI-Commercial [id number] ANSI-Commercial [id number] ANSI-Commercial [id number] ANSI-Medicare Part B [id number] ANSI-Medicare Part B [id number] ANSI-Commercial [id number] ANSI-Commercial [id number] [facility] [id number] [facility] [id number] MEDICARE [id number] A ANSI-Medicare Part B [id number] ANSI-Commercial [id number] ANSI-Commercial [id number] ANSI-Commercial [id number] ANSI-Commercial [id number] ANSI-Medicare Part B [id number] ANSI-Commercial [id number] ANSI-Medicare Part B [id number] ANSI-Commercial [id number] Medicare Medicare Primary [id number] Self 7 [id number] ANSI-Medicare Part B [id number] ANSI-Commercial [id number] ANSI-Commercial [id number] ANSI-Commercial [id number] ANSI-Medicare Part B [id number] ANSI-Commercial [id number]-[id number] ANSI-Commercial [id number] ANSI-Medicare Part B [id number] ANSI-Commercial [id number] ANSI-Medicare Part B [id number] ANSI-Commercial [id number] ANSI-Commercial [id number]-[id number]-[id number] Medicare Medicare Primary [id number] Self 7 [id number] [facility] [id number] [id number] ANSI-Medicare Part B [id number] ANSI-Commercial [id number] ANSI-Commercial [id number] ANSI-Commercial [id number] ANSI-Medicare Part B [id number] ANSI-Commercial [id number] ANSI-Medicare Part B [id number] ANSI-Commercial [id number] ANSI-Medicare Part B [id number] [employer] [id number] WI2 [id number] [employer] PPO O [id number] S [id number] MEDICARE C [id number] S [id number] A [employer] [id number] WI2 [id number] MEDICARE [id number] SP [id number] A [employer] [id number] WI2 [id number] [employer] [id number] WI2 [id number] MEDICARE [id number] SP [id number] A [employer] Medigap Part B Family Dependent Medicare Unm [facility]/NGS Medicare Primary Self OTHER1 UNAVAILABLE UNAVAILA BLE [employer]OMCO [id number] SP [id number] [employer] [id number] WI2 [id number] [facility] P [id number] S [id number] [employer] PPO S [id number] S [id number] [employer] [id number] WI2 [id number] A Problems, Conditions, and Diagnoses Code Display Name Description Problem Type Effective Dates Data Source(s) 299932441 Amputated right lower limb above knee Am putated right lower limb above knee Problem 11/14/2020 12:00:00 AM EST [facility] ([facility] K29.70 Gastroduodenitis Gastritis, presence of bleeding unspecified, unspecified chronicity, unspecified gastritis type Problem 11/09/2020 12:00:00 A M EST eCW1 ([facility]) I48.11 [id number] Longstanding persistent atrial fibrillati on Problem 11/09/2020 12:00:00 AM EST eCW1 ([facility]) N40.0 [id number] Benign prostatic hyp erplasia without lower urinary tract symptoms Problem 11/09/2020 12:00:00 AM EST eCW1 ([facility]) G54.6 [id number] Phantom limb pain Problem 11/09/2020 12:0 0:00 AM EST eCW1 ([facility]) S78.111A [id number] 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 Problem 10/19/2020 12:00:00 AM EST eCW1 ([facility]) E11.65 [id number] Poorly controlled diabetes mellitus Probl em 10/19/2020 12:00:00 AM EST eCW1 ([facility]) F43.20 [id number] Adjustment disorder, unspecified type Pro blem 09/12/2020 12:00:00 AM EST eCW1 ([facility]) Z95.828 [id number] S/P femoral-popliteal bypass surgery Prob ernesto 09/08/2020 12:00:00 AM EST eCW1 ([facility]) L03.90 [id number] Cellulitis, unspecified cellulitis site P roblem 08/28/2020 12:00:00 AM EST eCW1 ([facility]) L03.115 647887047 Cellulitis of right lower extremity Probl em 08/28/2020 12:00:00 AM EST eCW1 ([facility]) E11.42 96169413 Type 2 diabetes santos itus with diabetic polyneuropathy, without long-term current use of insulin Problem 08/28/2020 12:00:00 AM EST eCW1 ([facility]) L97.512 558804810 Non-pressure chronic ulcer of other part of right foot with fat layer exposed Problem 08/28/2020 12:00:00 AM EST eCW1 ([facility]) I70.238 267955729 Atherosclerosis of n ative arteries of right leg with ulceration of other part of lower leg Problem 08/28/2020 12:00:00 AM EST eCW1 ([facility]) I87.311 [id number] Chronic venous hyper tension (idiopathic) with ulcer of right lower extremity Problem 08/28/2020 12:00:00 AM EST eCW1 ([facility]) I70.235 296564027 Atherosclerosis of n ative arteries of right leg with ulceration of other part of foot Problem 08/28/2020 12:00:00 AM EST eCW1 ([facility]) L97.514 975402979 Non-pressure chronic ulcer of other part of right foot with necrosis of bone Problem 07/18/2020 12:00:00 AM EDT eCW1 ([facility]) E11.621 [id number] Type 2 diabetes mellitus with foot ulcer Problem 07/18/2020 12:00:00 AM EDT eCW1 ([facility]) L03.032 [id number] Paronychia of fifth toe of left foot Problem 03/23/2020 12:00:00 AM EDT eCW1 ([facility]) I10 Essential hypertension Essential hypertension [id number] 10/28/2019 12:00:00 AM [facility] I25.10 Coronary artery disease Coronary artery disease 414029 01 10/28/2019 12:00:00 AM [facility] E11.51 Type 2 diabetes mellitus wit h diabetic peripheral angiopathy without gangrene Type 2 diabetes mellitus with diabetic p Diagnosis 11/17/2020 02:04:02 PM [facility] I73.9 Peripheral vascular disease, unspecified Peripheral vascular disease, unspecified Diagnosis 11/17/2020 02:04:02 PM [facility] E78.00 Pure hypercholesterolemia, unspecified P ure hypercholesterolemia, unspecified Diagnosis 11/17/2020 02:04:02 PM [facility] I25.810 Atherosclerosis of coronary artery bypass graft(s) without angina pectoris Atherosclerosis of coronary artery bypas Diagnosis 11/17/2020 02:04:02 PM [facility] I48.92 Unspecified atrial flutter Unspecified atrial flutter Diagnosis 11/17/2020 02:04:02 PM [facility] I70.201 Unspecified atherosclerosis of [place] arteries of extremities, right leg Unspecified atherosclerosis of [place] arteries of extr emities, right leg Diagnosis 07/07/2020 12:29:03 PM [facility] Complete occlusion of right lower extrem ity. Complete occlusion of right lower extremity. Diagnosis 07/04/2020 08:22:00 PM [facility] Z48.02 Encounter for removal of sutures ENCOUNTER FOR R EMOVAL OF SUTURES Diagnosis 05/02/2020 11:00:00 AM [facility] I70.209 Unspecified atherosclerosis of [place] arteries of extremities, unspecified extremity UNSP ATHSCL [place] ARTERIES OF EXTREMITI ES, UNSP EXTREMITY Diagnosis 05/02/2020 11:00:00 AM [facility] l I70.209 Unspecified atherosclerosis of [place] arteries of extremities, unspecified extremity Unspecified atherosclerosis of [place] ar teries of extremities, unspecified extremity Diagnosis 04/02/2020 09:13:15 AM ED [facility] I10 Essential (primary) hypertension Essential (primary) h ypertension Diagnosis 04/02/2020 08:19:33 AM [facility] E11.9 Type 2 diabetes mellitus without complic ations Type 2 diabetes mellitus without complications Diagnosis 04/02/2020 08:19:[address] [facility] I73.9 Peripheral vascular disease, unspecified Peripheral vascular disease, unspecified Diagnosis 04/02/2020 08:19:33 AM [facility] R69 Illness, unspecified Illness, unspecified Diagnosis 04/02/2020 08:19:33 AM [facility] Arterial occlusion Arterial occlusion Diagnosis 0 08:19:33 AM [facility] L leg arterial occlusion L leg arterial occlusion Diag nosis 04/02/2020 06:00:23 AM [facility] I10 Essential (primary) hypertension Essential (primary) h ypertension Diagnosis 10/29/2019 01:44:35 PM EST [facility] Surgeries/Procedures Procedure Description Date Indications Data Source(s) POCT AMB EKG POCT AMB EKG Routine 11/18/2020 10:16 AM EST Atrial flutter, paroxysmal 11/18/2020 03:16:00 PM EST Atrial flutter, paroxysmal [facility] Atrial flutter, paroxysmal DEBRIDEMENT NAIL ANY METHOD 1-5 11/06/2020 12:00:00 AM EST [facility] ([facility] AMPUTATION THIGH THROUGH FEMUR ANY LEVEL 09/27/2020 12 :00:00 AM EST [facility] ([facility]) TROPONIN QUANTITATIVE TROPONIN I Routine 09/23/2020 09/23/2020 12:00:00 AM EST [facility] THYROID STIMULATING HORMONE TSH TSH Routine 09/23/2020 09/23/2020 12:00:00 AM EST [facility] FINE NEEDLE ASPIRATION W/O IMAGING GUIDANCE 09/12/2020 12:00:00 AM EST eCW1 ([facility]) FINE NEEDLE ASPIRATION W/O IMAGING GUIDANCE 09/05/2020 12:00:00 AM EST eCW1 ([facility]) FINE NEEDLE ASPIRATION W/O IMAGING GUIDANCE 08/22/2020 12:00:00 AM EST eCW1 ([facility]) FINE NEEDLE ASPIRATION W/O IMAGING GUIDANCE 08/15/2020 12:00:00 AM EDT eCW1 ([facility]) PARING/CUTTING BENIGN HYPERKERATOTIC LESION 1 08/14/20 12:00:00 AM EDT [facility] ([facility] DEBRIDEMENT NAIL ANY METHOD 6/> 08/14/2020 12:00:00 AM EDT [facility] ([facility] FINE NEEDLE ASPIRATION W/O IMAGING GUIDANCE 08/08/2020 12:00:00 AM EDT eCW1 ([facility]) FINE NEEDLE ASPIRATION W/O IMAGING GUIDANCE 08/01/2020 12:00:00 AM EDT eCW1 ([facility]) FINE NEEDLE ASPIRATION W/O IMAGING GUIDANCE 07/25/2020 12:00:00 AM EDT eCW1 ([facility]) Ultrasound, Each 15 Min, Constant Attendance 0 12:00:00 AM EDT [facility] ([facility] ) THERAPEUTIC PX 1/> AREAS EACH 15 MIN EXERCISES 020 12:00:00 AM EDT [facility] ([facility] ) FINE NEEDLE ASPIRATION W/O IMAGING GUIDANCE 07/18/2020 12:00:00 AM EDT eCW1 ([facility]) Ultrasound, Each 15 Min, Constant Attendance 0 12:00:00 AM EDT [facility] ([facility]) THERAPEUTIC PX 1/> AREAS EACH 15 MIN EXERCISES 020 12:00:00 AM EDT [facility] ([facility]) POCT GLUCOSE, DOCKED POCT GLUCOSE, DOCKED Routine 07/07/2020 12:07 PM EDT 07/07[facility]2020 [facility] D[facility] POCT GLUCOSE, DOCKED Routine 07/07/2020 8:01 AM EDT 07/07/2020 08:01:00 AM [facility] BLOOD COUNT COMPLETE AUTO&AUTO DIFRNTL WBC COUNT CBC AND DIFFER ENTIAL Routine 07/07/2020 4:48 AM EDT 07/07/2020 04:48:00 AM [facility] GLUCOSE QUANTITATIVE BLOOD XCPT REAGENT STRIP POCT GLUCOSE, DOC KED Routine 07/06/2020 9:09 PM EDT 07/06/2020 09:09:00 PM [facility] GLUCOSE QUANTITATIVE BLOOD XCPT REAGENT STRIP POCT GLUCOSE, DOC KED Routine 07/06/2020 4:58 PM EDT 07/06/2020 04:58:00 PM [facility] GLUCOSE QUANTITATIVE BLOOD XCPT REAGENT STRIP POCT GLUCOSE, DOC KED Routine 07/06/2020 12:24 PM EDT 07/06/2020 12:24:00 PM [facility] GLUCOSE QUANTITATIVE BLOOD XCPT REAGENT STRIP POCT GLUCOSE, DOC KED Routine 07/06/2020 8:56 AM EDT 07/06/2020 08:56:00 AM [facility] GLUCOSE QUANTITATIVE BLOOD XCPT REAGENT STRIP POCT GLUCOSE, DOC KED Routine 07/06/2020 4:04 AM EDT 07/06/2020 04:04:00 AM [facility] BLOOD COUNT COMPLETE AUTO&AUTO DIFRNTL WBC COUNT CBC AND DIFFER ENTIAL Routine 07/06/2020 12:26 AM EDT 07/06/2020 12:26:00 AM [facility] GLUCOSE QUANTITATIVE BLOOD XCPT REAGENT STRIP POCT GLUCOSE, DOC KED Routine 07/06/2020 12:09 AM EDT 07/06/2020 12:09:00 AM [facility] GLUCOSE QUANTITATIVE BLOOD XCPT REAGENT STRIP POCT GLUCOSE, DOC LUDWIG Routine 07/05/2020 10:52 PM EDT 07/05/2020 10:52:00 PM [facility] GLUCOSE QUANTITATIVE BLOOD XCPT REAGENT STRIP POCT GLUCOSE, DOC KED Routine 07/05/2020 3:51 PM EDT 07/05/2020 03:51:00 PM [facility] GLUCOSE QUANTITATIVE BLOOD XCPT REAGENT STRIP POCT GLUCOSE, DOC LUDWIG Routine 07/05/2020 12:05 PM EDT 07/05/2020 12:05:00 PM [facility] GLUCOSE QUANTITATIVE BLOOD XCPT REAGENT STRIP POCT GLUCOSE, DOC KED Routine 07/05/2020 7:58 AM EDT 07/05/2020 07:58:00 AM [facility] BLOOD COUNT COMPLETE AUTOMATED CBC AND DIFFERENTIAL Routine 07/05/2020 4:55 AM EDT 07/05/2020 04:55:00 AM [facility] GLUCOSE QUANTITATIVE BLOOD XCPT REAGENT STRIP POCT GLUCOSE, DOC LUDWIG Routine 07/05/2020 4:28 AM EDT 07/05/2020 04:28:00 AM [facility] GLUCOSE QUANTITATIVE BLOOD XCPT REAGENT STRIP POCT GLUCOSE, DOC LUDWIG Routine 07/05/2020 12:29 AM EDT 07/05/2020 12:29:00 AM [facility] THROMBOPLASTIN TIME PARTIAL PLASMA/WHOLE BLOOD PARTIA L THROMBOPLASTIN TIME (PTT) Routine 07/04/2020 10:27 PM EDT 07/04/2020 10:27 :00 PM [facility] PROTHROMBIN TIME PROTIME INR Routine 07/04/2020 10:27 PM EDT 07/04/2020 10:27:00 PM [facility] BLOOD COUNT COMPLETE AUTO&AUTO DIFRNTL WBC COUNT CBC AND DIFFER ENTIAL Routine 07/04/2020 10:27 PM EDT 07/04/2020 10:27:00 PM [facility] BLOOD TYPING ABO TYPE AND SCREEN Routine 07/04/2020 10:27 PM EDT 07/04/2020 10:27:00 PM [facility] PHOSPHORUS INORGANIC PHOSPHORUS LEVEL Routine 07/04/2020 10:27 PM E DT 07/04/2020 10:27:00 PM [facility] MAGNESIUM MAGNESIUM LEVEL Routine 07/04/2020 10:27 PM EDT 07/04/2020 10:27:00 PM [facility] LIPASE LIPASE LEVEL Routine 07/04/2020 10:27 PM EDT 07/04/2020 10:27:00 PM [facility] LACTATE LACTIC ACID LEVEL, PLASMA Routine 07/04/2020 10:27 PM EDT 07/04/2020 10:27:00 PM [facility] BILIRUBIN DIRECT BILIRUBIN, DIRECT Routine 07/04/2020 10:27 PM EDT 07/04/2020 10:27:00 PM [facility] AMYLASE AMYLASE LEVEL Routine 07/04/2020 10:27 PM EDT 07/04/2020 10:27:00 PM [facility] COMPREHENSIVE METABOLIC PANEL COMPREHENSIVE METABOLIC PANEL Rou odalys 07/04/2020 10:27 PM EDT 07/04/2020 10:27:00 PM EDT [facility] THERAPEUTIC PX 1/> AREAS EACH 15 MIN EXERCISES 12:00:00 AM EDT [facility] ([facility] ) THERAPEUTIC PX 1/> AREAS EACH 15 MIN EXERCISES 12:00:00 AM EDT [facility] ([facility] ) THERAPEUTIC PX 1/> AREAS EACH 15 MIN EXERCISES 12:00:00 AM EDT [facility] ([facility] ) Physical Therapy Eval - Low Complexity 06/16/2020 12:0 0:00 AM EDT [facility] ([facility] ) X-Ray Spine Lumbosacral Complete Inc Bending Views Min Of 6 06/12/2020 12:00:00 AM EDT [facility] ([facility] ) PARING/CUTTING BENIGN HYPERKERATOTIC LESION 2-4 2019 12:00:00 AM EDT [facility] ([facility] DEBRIDEMENT NAIL ANY METHOD /> 06/05/2020 12:00:00 AM EDT [facility] ([facility] FINE NEEDLE ASPIRATION W/O IMAGING GUIDANCE 04/27/2020 12:00:00 AM EDT eCW1 ([facility]) POCT GLUCOSE, DOCKED POCT GLUCOSE, DOCKED Routine 04/12/2020 7:25 AM EDT 04/12/2020 11:25:00 AM [facility] GLUCOSE QUANTITATIVE BLOOD XCPT REAGENT STRIP POCT GLUCOSE, JAMES MUNROE Routine 04/11/2020 8:42 PM EDT 04/12/2020 12:42:00 AM [facility] GLUCOSE QUANTITATIVE BLOOD XCPT REAGENT STRIP POCT GLUCOSE, JAMES MUNROE Routine 04/11/2020 5:31 PM EDT 04/11/2020 09:31:00 PM [facility] UH COVID-19 PCR UH COVID-19 PCR Routine 04/11/2020 3:00 PM EDT 04/11/2020 07:00:00 PM [facility] GLUCOSE QUANTITATIVE BLOOD XCPT REAGENT STRIP POCT GLUCOSE, JAMES MUNROE Routine 04/11/2020 11:54 AM EDT 04/11/2020 03:54:00 PM [facility] GLUCOSE QUANTITATIVE BLOOD XCPT REAGENT STRIP POCT GLUCOSE, JAMES MUNROE Routine 04/11/2020 7:45 AM EDT 04/11/2020 11:45:00 AM [facility] GLUCOSE QUANTITATIVE BLOOD XCPT REAGENT STRIP POCT GLUCOSE, JAMES MUNROE Routine 04/10/2020 8:51 PM EDT 04/11/2020 12:51:00 AM [facility] GLUCOSE QUANTITATIVE BLOOD XCPT REAGENT STRIP POCT GLUCOSE, JAMES MUNROE Routine 04/10/2020 5:13 PM EDT 04/10/2020 09:13:00 PM [facility] GLUCOSE QUANTITATIVE BLOOD XCPT REAGENT STRIP POCT GLUCOSE, JAMES MUNROE Routine 04/10/2020 12:14 PM EDT 04/10/2020 04:14:00 PM [facility] GLUCOSE QUANTITATIVE BLOOD XCPT REAGENT STRIP POCT GLUCOSE, JAMES MUNROE Routine 04/10/2020 8:23 AM EDT 04/10/2020 12:23:00 PM [facility] GLUCOSE QUANTITATIVE BLOOD XCPT REAGENT STRIP POCT GLUCOSE, JAMES MUNROE Routine 04/09/2020 9:25 PM EDT 04/10/2020 01:25:00 AM [facility] GLUCOSE QUANTITATIVE BLOOD XCPT REAGENT STRIP POCT GLUCOSE, JAMES MUNROE Routine 04/09/2020 5:11 PM EDT 04/09/2020 09:11:00 PM [facility] GLUCOSE QUANTITATIVE BLOOD XCPT REAGENT STRIP POCT GLUCOSE, JAMES MUNROE Routine 04/09/2020 12:13 PM EDT 04/09/2020 04:13:00 PM [facility] GLUCOSE QUANTITATIVE BLOOD XCPT REAGENT STRIP POCT GLUCOSE, JAMES MUNROE Routine 04/09/2020 8:09 AM EDT 04/09/2020 12:09:00 PM [facility] GLUCOSE QUANTITATIVE BLOOD XCPT REAGENT STRIP POCT GLUCOSE, JAMES MUNROE Routine 04/08/2020 9:07 PM EDT 04/09/2020 01:07:00 AM [facility] GLUCOSE QUANTITATIVE BLOOD XCPT REAGENT STRIP POCT GLUCOSE, JAMES MUNROE Routine 04/08/2020 5:02 PM EDT 04/08/2020 09:02:00 PM [facility] GLUCOSE QUANTITATIVE BLOOD XCPT REAGENT STRIP POCT GLUCOSE, JAMES MUNROE Routine 04/08/2020 11:54 AM EDT 04/08/2020 03:54:00 PM [facility] GLUCOSE QUANTITATIVE BLOOD XCPT REAGENT STRIP POCT GLUCOSE, JAMES MUNROE Routine 04/08/2020 7:52 AM EDT 04/08/2020 11:52:00 AM [facility] GLUCOSE QUANTITATIVE BLOOD XCPT REAGENT STRIP POCT GLUCOSE, JAMES MUNROE Routine 04/07/2020 9:41 PM EDT 04/08/2020 01:41:00 AM [facility] GLUCOSE QUANTITATIVE BLOOD XCPT REAGENT STRIP POCT GLUCOSE, JAMES MUNROE Routine 04/07/2020 5:15 PM EDT 04/07/2020 09:15:00 PM [facility] GLUCOSE QUANTITATIVE BLOOD XCPT REAGENT STRIP POCT GLUCOSE, JAMES MUNROE Routine 04/07/2020 11:59 AM EDT 04/07/2020 03:59:00 PM [facility] GLUCOSE QUANTITATIVE BLOOD XCPT REAGENT STRIP POCT GLUCOSE, JAMES MUNROE Routine 04/07/2020 8:13 AM EDT 04/07/2020 12:13:00 PM [facility] BLOOD COUNT COMPLETE AUTOMATED CBC Routine 04/07/2020 6:06 A M EDT 04/07/2020 10:06:00 AM [facility] PHOSPHORUS INORGANIC PHOSPHORUS LEVEL Routine 04/07/2020 6:06 AM E DT 04/07/2020 10:06:00 AM [facility] MAGNESIUM MAGNESIUM LEVEL Routine 04/07/2020 6:06 AM EDT 04/07/2020 10:06:00 AM [facility] BASIC METABOLIC PANEL CALCIUM TOTAL BASIC METABOLIC PANEL Routi ne 04/07/2020 6:06 AM EDT 04/07/2020 10:06:00 AM EDT [facility] GLUCOSE QUANTITATIVE BLOOD XCPT REAGENT STRIP POCT GLUCOSE, DOC LUDWIG Routine 04/06/2020 10:32 PM EDT 04/07/2020 02:32:00 AM [facility] GLUCOSE QUANTITATIVE BLOOD XCPT REAGENT STRIP POCT GLUCOSE, DOC LUDWIG Routine 04/06/2020 5:28 PM EDT 04/06/2020 09:28:00 PM [facility] EKG 12-LEAD - CMAXX REPORT EKG 12-LEAD - CMAXX REPORT 04/06/2020 1:14 PM EDT 04/06/2020 05:14:41 PM EDT [facility] EKG 12-LEAD - CMAXX REPORT EKG 12-LEAD - CMAXX REPORT 04/06/2020 1:14 PM EDT 04/06/2020 05:14:41 PM EDT [facility] EKG 12-LEAD EKG 12-LEAD Routine 04/06/2020 1:14 PM EDT 04/06/2020 05:14:41 PM [facility] GLUCOSE QUANTITATIVE BLOOD XCPT REAGENT STRIP POCT GLUCOSE, JAMES MUNROE Routine 04/06/2020 12:03 PM EDT 04/06/2020 04:03:00 PM [facility] TROPONIN QUANTITATIVE TROPONIN T Timed 04/06/2020 11:35 AM EDT 04/06/2020 03:35:00 PM [facility] GLUCOSE QUANTITATIVE BLOOD XCPT REAGENT STRIP POCT GLUCOSE, DOC KED Routine 04/06/2020 8:00 AM EDT 04/06/2020 12:00:00 PM [facility] BLOOD COUNT COMPLETE AUTOMATED CBC Routine 04/06/2020 6:35 A M EDT 04/06/2020 10:35:00 AM [facility] PHOSPHORUS INORGANIC PHOSPHORUS LEVEL Routine 04/06/2020 6:35 AM E DT 04/06/2020 10:35:00 AM [facility] MAGNESIUM MAGNESIUM LEVEL Routine 04/06/2020 6:35 AM EDT 04/06/2020 10:35:00 AM [facility] BASIC METABOLIC PANEL CALCIUM TOTAL BASIC METABOLIC PANEL Routi ne 04/06/2020 6:35 AM EDT 04/06/2020 10:35:00 AM EDT [facility] TROPONIN QUANTITATIVE TROPONIN T Timed 04/06/2020 12:39 AM EDT 04/06/2020 04:39:00 AM [facility] GLUCOSE QUANTITATIVE BLOOD XCPT REAGENT STRIP POCT GLUCOSE, DOC KED Routine 04/05/2020 10:28 PM EDT 04/06/2020 02:28:00 AM [facility] GLUCOSE QUANTITATIVE BLOOD XCPT REAGENT STRIP POCT GLUCOSE, DOC KED Routine 04/05/2020 5:56 PM EDT 04/05/2020 09:56:00 PM [facility] TROPONIN QUANTITATIVE TROPONIN T Timed 04/05/2020 5:39 PM EDT 04/05/2020 09:39:00 PM [facility] ANGIOGRAPHY EXTREMITY UNILATERAL RS&I FLUORO ART LOWER EXTR EMITY-[place] [id number] Routine 04/05/2020 2:30 PM EDT Diagnosis unknown 04/05/2020 06:30:00 PM EDT Diagnosis unknown [facility] Diagnosis unknown BLOOD GASES ANY COMBINATION PH PCO2 PO2 CO2 HCO3 POCT ISTAT ARTERIAL CG8 Routine 04/05/2020 1:29 PM EDT 04/05/2020 05:29:00 PM [facility] COAGULATION TIME ACTIVATED POCT ISTAT ACT Routine 04/05/2020 1:19 PM EDT 04/05/2020 05:19:00 PM [facility] COAGULATION TIME ACTIVATED POCT ISTAT ACT Routine 04/05/2020 12:57 PM EDT 04/05/2020 04:57:00 PM [facility] BYPASS GRAFT, W/OTHER THAN VEIN; FEMORAL-POPLITEAL BY PASS GRAFT, W/OTHER THAN VEIN; FEMORAL-POPLITEAL 04/05/2020 9:09 AM EDT foot ulcer 04/05/2020 01:09:00 PM EDT - 04/05/2020 08:25:00 PM [facility] GLUCOSE QUANTITATIVE BLOOD XCPT REAGENT STRIP POCT GLUCOSE, DOC KED Routine 04/05/2020 7:45 AM EDT 04/05/2020 11:45:00 AM [facility] BLOOD COUNT COMPLETE AUTO&AUTO DIFRNTL WBC COUNT CBC AND DIFFER ENTIAL Routine 04/05/2020 2:54 AM EDT 04/05/2020 06:54:00 AM [facility] PHOSPHORUS INORGANIC PHOSPHORUS LEVEL Routine 04/05/2020 2:54 AM E DT 04/05/2020 06:54:00 AM [facility] MAGNESIUM MAGNESIUM LEVEL Routine 04/05/2020 2:54 AM EDT 04/05/2020 06:54:00 AM [facility] BASIC METABOLIC PANEL CALCIUM TOTAL BASIC METABOLIC PANEL Routi ne 04/05/2020 2:54 AM EDT 04/05/2020 06:54:00 AM EDT [facility] GLUCOSE QUANTITATIVE BLOOD XCPT REAGENT STRIP POCT GLUCOSE, JAMES MUNROE Routine 04/04/2020 8:09 PM EDT 04/05/2020 12:09:00 AM [facility] GLUCOSE QUANTITATIVE BLOOD XCPT REAGENT STRIP POCT GLUCOSE, DOC LUDWIG Routine 04/04/2020 5:23 PM EDT 04/04/2020 09:23:00 PM [facility] BLOOD TYPING ABO TYPE AND CROSSMATCH Routine 04/04/2020 2:08 PM ED T 04/04/2020 06:08:00 PM [facility] GLUCOSE QUANTITATIVE BLOOD XCPT REAGENT STRIP POCT GLUCOSE, JAMES MUNROE Routine 04/04/2020 11:53 AM EDT 04/04/2020 03:53:00 PM [facility] ECHO TTHRC R-T 2D W/WOM-MODE COMPL SPEC&COLR DOP ECHOCARDIO GRAM 2D COMPLETE STAT 04/04/2020 8:25 AM EDT 04/04/2020 12:25:16 PM [facility] GLUCOSE QUANTITATIVE BLOOD XCPT REAGENT STRIP POCT GLUCOSE, JAMES MUNROE Routine 04/04/2020 7:46 AM EDT 04/04/2020 11:46:00 AM [facility] CONFIRMATORY TYPE CONFIRMATORY TYPE Routine 04/04/2020 3:23 AM EDT 04/04/2020 07:23:00 AM [facility] BLOOD COUNT COMPLETE AUTO&AUTO DIFRNTL WBC COUNT CBC AND DIFFER ENTIAL Routine 04/04/2020 3:23 AM EDT 04/04/2020 07:23:00 AM [facility] PHOSPHORUS INORGANIC PHOSPHORUS LEVEL Routine 04/04/2020 3:23 AM E DT 04/04/2020 07:23:00 AM [facility] MAGNESIUM MAGNESIUM LEVEL Routine 04/04/2020 3:23 AM EDT 04/04/2020 07:23:00 AM [facility] BASIC METABOLIC PANEL CALCIUM TOTAL BASIC METABOLIC PANEL Routi ne 04/04/2020 3:23 AM EDT 04/04/2020 07:23:00 AM EDT [facility] GLUCOSE QUANTITATIVE BLOOD XCPT REAGENT STRIP POCT GLUCOSE, DOC KED Routine 04/03/2020 7:59 PM EDT 04/03/2020 11:59:00 PM [facility] GLUCOSE QUANTITATIVE BLOOD XCPT REAGENT STRIP POCT GLUCOSE, DOC KED Routine 04/03/2020 5:06 PM EDT 04/03/2020 09:06:00 PM [facility] GLUCOSE QUANTITATIVE BLOOD XCPT REAGENT STRIP POCT GLUCOSE, DOC KED Routine 04/03/2020 12:09 PM EDT 04/03/2020 04:09:00 PM [facility] GLUCOSE QUANTITATIVE BLOOD XCPT REAGENT STRIP POCT GLUCOSE, DOC KEJones Routine 04/03/2020 8:06 AM EDT 04/03/2020 12:06:00 PM [facility] NATRIURETIC PEPTIDE PROBNP Routine 04/03/2020 3:47 AM EDT 04/03/2020 07:47:00 AM [facility] BLOOD COUNT COMPLETE AUTO&AUTO DIFRNTL WBC COUNT CBC AND DIFFER ENTIAL Routine 04/03/2020 3:47 AM EDT 04/03/2020 07:47:00 AM [facility] PHOSPHORUS INORGANIC PHOSPHORUS LEVEL Routine 04/03/2020 3:47 AM E DT 04/03/2020 07:47:00 AM [facility] MAGNESIUM MAGNESIUM LEVEL Routine 04/03/2020 3:47 AM EDT 04/03/2020 07:47:00 AM [facility] BASIC METABOLIC PANEL CALCIUM TOTAL BASIC METABOLIC PANEL Routi ne 04/03/2020 3:47 AM EDT 04/03/2020 07:47:00 AM EDT [facility] GLUCOSE QUANTITATIVE BLOOD XCPT REAGENT STRIP POCT GLUCOSE, JAMES MAYERSD Routine 04/02/2020 8:52 PM EDT 04/03/2020 12:52:00 AM [facility] GLUCOSE QUANTITATIVE BLOOD XCPT REAGENT STRIP POCT GLUCOSE, DOC KED Routine 04/02/2020 5:03 PM EDT 04/02/2020 09:03:00 PM [facility] GLUCOSE QUANTITATIVE BLOOD XCPT REAGENT STRIP POCT GLUCOSE, DOC KED Routine 04/02/2020 1:24 PM EDT 04/02/2020 05:24:00 PM [facility] VASC LAB US DOPPLER LOWER EXTREMITY UNILATERAL VENOUS LTD [id number] VASC LAB US DOPPLER LOWER EXTREMITY UNILATERAL VENOUS LTD [id number] Routine 1:08 PM EDT Superficial femoral artery occlusion 04/02/2020 05:08:00 PM EDT Superficial femoral artery occlusion [facility] Superficial femoral artery occlusion [facility] COVID-19 PCR [facility] COVID-19 PCR Routine 04/02/2020 12:56 PM EDT 04/02/2020 04:56:00 PM EDT [facility] HEPARIN ASSAY ANTI-XA UNFRACTIONATED HEPARIN LEVEL Routine 04/02/2020 12:37 PM EDT 04/02/2020 04:37:00 PM EDT [facility] PROTHROMBIN TIME PROTIME INR Routine 04/02/2020 12:37 PM EDT 04/02/2020 04:37:00 PM EDT [facility] BLOOD COUNT COMPLETE AUTOMATED CBC Timed 04/02/2020 12:37 P M EDT 04/02/2020 04:37:00 PM EDT [facility] HEMOGLOBIN GLYCOSYLATED A1C HEMOGLOBIN A1C Routine 04/02/2020 12:37 PM EDT 04/02/2020 04:37:00 PM EDT [facility] GLUCOSE QUANTITATIVE BLOOD XCPT REAGENT STRIP POCT GLUCOSE, DOC KED Routine 04/02/2020 12:24 PM EDT 04/02/2020 04:24:00 PM EDT [facility] XR CHEST FRONTAL ONLY [id number] XR CHEST FRONTAL ONLY [id number] Routine 04/02/2020 12:22 PM EDT 04/02/2020 04:22:00 PM EDT [facility] EKG 12-LEAD - CMAXX REPORT EKG 12-LEAD - CMAXX REPORT 04/02/2020 12:16 PM EDT 04/02/2020 04:16:16 PM EDT [facility] EKG 12-LEAD - CMAXX REPORT EKG 12-LEAD - CMAXX REPORT 04/02/2020 12:16 PM EDT 04/02/2020 04:16:16 PM EDT [facility] EKG 12-LEAD EKG 12-LEAD Routine 04/02/2020 12:16 PM EDT 04/02/2020 04:16:16 PM EDT [facility] ANGIOGRAPHY EXTREMITY UNILATERAL RS&I IR FEMORAL ARTERIOGRAM Ro utine 04/02/2020 10:44 AM EDT 04/02/2020 02:44:39 PM EDT [facility] CHG ANGIO EXTREMITY UNILAT [31121] CHG ANGIO EXTREMITY UNILAT [ 13423] 04/02/2020 9:56 AM EDT right leg occlusion 04/02/2020 01:56:00 PM EDT - 04/02/2020 03:2 4:00 PM T [facility] OPERATIVE AND PROCEDURE NOTE OPERATIVE AND PROCEDURE NOTE 04/02/2020 9:32 AM EDT 04/02/2020 01:32:14 PM EDT [facility] FINE NEEDLE ASPIRATION W/O IMAGING GUIDANCE 03/30/2020 12:00:00 AM EDT eCW1 ([facility]) PARING/CUTTING BENIGN HYPERKERATOTIC LESION 2-4 2019 12:00:00 AM EDT [facility] ([facility] DEBRIDEMENT NAIL ANY METHOD /> 03/27/2020 12:00:00 AM EDT [facility] ([facility] FINE NEEDLE ASPIRATION W/O IMAGING GUIDANCE 03/23/2020 12:00:00 AM EDT eCW1 ([facility]) INJECTION 1 TENDON SHEATH/LIGAMENT APONEUROSIS 12:00:00 AM EDT [facility] ([facility] ) INJECTION 1 TENDON SHEATH/LIGAMENT APONEUROSIS 12:00:00 AM EDT [facility] ([facility] ) THERAPEUTIC PX 1/> AREAS EACH 15 MIN EXERCISES 12:00:00 AM EDT [facility] ([facility]) MANUAL THERAPY TQS 1/> REGIONS EACH 15 MINUTES 12:00:00 AM EDT [facility] ([facility] ) MANUAL THERAPY TQS 1/> REGIONS EACH 15 MINUTES 12:00:00 AM EDT [facility] ([facility]) THERAPEUTIC PX 1/> AREAS EACH 15 MIN EXERCISES 12:00:00 AM EDT [facility] ([facility]) Office Visit, Est Pt., Level 3 PC 02/29/2020 12:00:00 AM EDT eCW1 ([facility]) Office Visit, Est Pt., Level 2 FC 02/29/2020 12:00:00 AM EDT eCW1 ([facility]) THERAPEUTIC PX 1/> AREAS EACH 15 MIN EXERCISES 12:00:00 AM EDT [facility] ([facility]) MANUAL THERAPY TQS 1/> REGIONS EACH 15 MINUTES 12:00:00 AM EDT [facility] ([facility]) THERAPEUTIC PX 1/> AREAS EACH 15 MIN EXERCISES 12:00:00 AM EDT [facility] ([facility]) MANUAL THERAPY TQS 1/> REGIONS EACH 15 MINUTES 12:00:00 AM EDT [facility] ([facility]) THERAPEUTIC PX 1/> AREAS EACH 15 MIN EXERCISES 12:00:00 AM EDT [facility] ([facility]) MANUAL THERAPY TQS 1/> REGIONS EACH 15 MINUTES 12:00:00 AM EDT [facility] ([facility]) THERAPEUTIC PX 1/> AREAS EACH 15 MIN EXERCISES 12:00:00 AM EDT [facility] ([facility] ) MANUAL THERAPY TQS 1/> REGIONS EACH 15 MINUTES 12:00:00 AM EDT [facility] ([facility]) THERAPEUTIC PX 1/> AREAS EACH 15 MIN EXERCISES 12:00:00 AM EDT [facility] ([facility]) MANUAL THERAPY TQS 1/> REGIONS EACH 15 MINUTES 12:00:00 AM EDT [facility] ([facility]) THERAPEUTIC PX 1/> AREAS EACH 15 MIN EXERCISES 12:00:00 AM EDT [facility] ([facility]) MANUAL THERAPY TQS 1/> REGIONS EACH 15 MINUTES 12:00:00 AM EDT [facility] ([facility]) THERAPEUTIC PX 1/> AREAS EACH 15 MIN EXERCISES 12:00:00 AM EDT [facility] ([facility]) MANUAL THERAPY TQS 1/> REGIONS EACH 15 MINUTES 12:00:00 AM EDT [facility] ([facility]) THERAPEUTIC PX 1/> AREAS EACH 15 MIN EXERCISES 12:00:00 AM EDT [facility] ([facility]) MANUAL THERAPY TQS 1/> REGIONS EACH 15 MINUTES 12:00:00 AM EDT [facility] ([facility]) THERAPEUTIC PX 1/> AREAS EACH 15 MIN EXERCISES 12:00:00 AM EDT [facility] ([facility]) MANUAL THERAPY TQS 1/> REGIONS EACH 15 MINUTES 12:00:00 AM EDT [facility] ([facility]) THERAPEUTIC PX 1/> AREAS EACH 15 MIN EXERCISES 12:00:00 AM EDT [facility] ([facility]) MANUAL THERAPY TQS 1/> REGIONS EACH 15 MINUTES 12:00:00 AM EDT [facility] ([facility]) THERAPEUTIC PX 1/> AREAS EACH 15 MIN EXERCISES 12:00:00 AM EDT [facility] ([facility]) MANUAL THERAPY TQS 1/> REGIONS EACH 15 MINUTES 12:00:00 AM EDT [facility] ([facility]) THERAPEUTIC PX 1/> AREAS EACH 15 MIN EXERCISES 12:00:00 AM EDT [facility] ([facility]) MANUAL THERAPY TQS 1/> REGIONS EACH 15 MINUTES 12:00:00 AM EDT [facility] ([facility]) Physical Therapy Eval - Low Complexity 01/12/2020 12:0 0:00 AM EDT [facility] ([facility]) Office Visit, Est Pt., Level 3 FC 12/23/2019 12:00:00 AM EST eCW1 ([facility]) PARING/CUTTING BENIGN HYPERKERATOTIC LESION 2-4 2019 12:00:00 AM EST [facility] ([facility] DEBRIDEMENT NAIL ANY METHOD /> 11/05/2019 12:00:00 AM EST [facility] ([facility] Results ID Date Data Source [id number] 12/05/2020 05:56:00 PM EST [facility] Name Value Range Interpretation Code Description Data Lisa rce(s) Supporting Document(s) CBC W/AUTOMATED DIFF [facility] COMPLETE BLOOD COUNT Leukocytes [#/volume] in Blood by Automated count 4.2 10^3/uL 4.2 - 1 1.0 [facility] Erythrocytes [#/volume] in Blood by Automated count 2.20 10^6/uL 4. 50 - 6.30 L [facility] Hemoglobin [Mass/volume] in Blood 6.7 g/dL 14.0 - 16.0 LL [facility] CALL/ READ BACK COSTA THOMASON [facility] BY: TAD [facility] DATE/TIME 12.05.20 152 [facility] pital Hematocrit [Volume Fraction] of Blood by Automated count 22.7 % 4 1.0 - 51.0 L [facility] Erythrocyte mean corpuscular volume [Entitic volume] b y Automated count 103.2 fL 80.0 - 94.0 H [facility] Erythrocyte mean corpuscular hemoglobin [Entitic mass] by Automated count 30.5 pg 27.0 - 34.0 [facility] Erythrocyte mean corpuscular hemoglobin concentration [Mass/volume] by Automated count 29.5 g/dL 31.0 - 36.0 L [facility] Erythrocyte distribution width [Ratio] by Automated count 16.7 % 11.5 - 14.8 H [facility] Platelets [#/volume] in Blood by Automated count 273 10^3/uL 150 - 45 0 [facility] Platelet mean volume [Entitic volume] in Blood by Automated count 9.4 fL 7.4 - 10.4 [facility] Neutrophils/100 leukocytes in Blood by Automated count 68.2 % 37. 0 - 80.0 [facility] Lymphocytes/100 leukocytes in Blood by Manual count 20.3 % 25.0 - 40.0 L [facility] Monocytes/100 leukocytes in Blood by Automated count 8.4 % 3.0 - 8.0 H [facility] Eosinophils/100 leukocytes in Blood by Automated count 2.4 % 0.0 - 7.0 [facility] Basophils/100 leukocytes in Blood by Automated count 0.2 % 0.0 - 2.0 [facility] %IG 0.5 % 0.0 - 0.0 [facility] %NRBC 0.0 % 0.0 - 0.0 [facility] Neutrophils [#/volume] in Blood by Automated count 2.86 10^3/uL 2.00 - 6.90 [facility] Lymphocytes [#/volume] in Blood by Automated count 0.85 10^3/uL 0.60 - 3.40 [facility] Monocytes [#/volume] in Blood by Automated count 0.35 10^3/uL 0.00 - 0.90 [facility] Eosinophils [#/volume] in Blood by Automated count 0.10 10^3/uL 0.00 - 0.70 [facility] Basophils [#/volume] in Blood by Automated count 0.01 10^3/uL 0.00 - 0.20 [facility] #IG 0.02 10^3/uL 0.00 - 0.10 [facility] #NRBC 0.00 10^3/uL 0.00 - 0.00 [facility] MANUAL DIFF SEE BELOW [facility] ital Segmented neutrophils/100 leukocytes in Blood by Manual count 74 % 37 - 80 [facility] %LYMPH 23 % 25 - 40 L [facility] %MONO 2 % 3 - 8 L [facility] %EOS 1 % 0 - 7 [facility] RBC MORPH SEE BELOW [facility] Anisocytosis [Presence] in Blood by Light microscopy 2+ RUBY L: NONE SEEN A [facility] HYPO 2+ NORMAL: NONE SEEN A [facility] { SICKLE CELL (NORMAL: NONE SEEN ) COMMENT: ID Date Data Source [id number] 12/01/2020 10:45:00 AM EST [facility] Name Value Range Interpretation Code Description Data Lisa rce(s) Supporting Document(s) SARS coronavirus 2 RNA Not Detected [facility] This lab was ordered by [facility] and reported by [facility]. ID Date Data Source [id number] 10/03/2020 02:51:00 PM EST [facility] Name Value Range Interpretation Code Description Data Lisa rce(s) Supporting Document(s) SARS-CoV-2 (COVID 19) [facility] This lab was ordered by [facility] a nd reported by [facility]. ID Date Data Source [id number] 09/23/2020 06:31:00 AM EST [facility] Name Value Range Interpretation Code Description Data Lisa rce(s) Supporting Document(s) SARS coronavirus 2 RNA [Presence] in Res piratory specimen by LENIN with probe detection [facility] This lab was ordered by [facility] a nd reported by [facility]. ID Date Data Source ERYTHROCYTE SEDIMENTATION RATE 09/07/2020 12:00:00 AM EST eC W1 ([facility]) Name Value Range Interpretation Code Description Data Lisa rce(s) Supporting Document(s) 126 0-20 ERYTHROCYTE SEDIMENTATION RATE eCW1 ([facility]) ID Date Data Source C REACTIVE PROTEIN QUANTITATIV (At [facility]) 09/07/2020 12:00 :00 AM EST eCW1 ([facility]) Name Value Range Interpretation Code Description Data Lisa rce(s) Supporting Document(s) 0.94 0.00-0.30 C REACTIVE PROTEIN QUANTI TATIV eCW1 ([facility]) ID Date Data Source CBC with Differential 09/07/2020 12:00:00 AM EST eCW1 ([facility]) Name Value Range Interpretation Code Description Data Lisa rce(s) Supporting Document(s) 62.7 36.0-66.0 NEUTROPHILS % eCW1 ([facility]) 8.8 0.0-5.0 MONO % eCW1 ([facility]) 3.3 0.0-3.0 EOS % eCW1 ([facility]) 23.4 24.0-44.0 LYMPH % eCW1 ([facility]) 1.3 1.5-5.0 LYMPH # eCW1 ([facility]) 3.4 1.5-8.5 NEUTROPHILS # eCW1 ([facility]) 0.9 0.0-1.0 BASO % eCW1 ([facility]) 0.5 0.0-0.8 MONO # eCW1 ([facility]) 0.2 0.0-0.5 EOS # eCW1 ([facility]) 0.1 0.0-0.2 BASO # eCW1 ([facility]) 7.1 4.0-10.0 WHITE BLOOD COUNT eCW1 ([facility]) 3.09 4.30-6.10 RED BLOOD COUNT eCW1 ([facility]) 8.5 13.5-17.5 HEMOGLOBIN eCW1 ([facility]) 91.9 80.0-96.0 MEAN CORPUSCULAR VOLUME e CW1 ([facility]) 27.5 27.0-33.0 MEAN CORPUSCULAR HEMOGLOB IN eCW1 ([facility]) 28.4 42.0-52.0 HEMATOCRIT eCW1 ([facility]) 29.9 32.0-36.5 MEAN CORPUSCULAR HGB CONC eCW1 ([facility]) 351 150-450 PLATELET COUNT, AUTOMATED eCW1 ([facility]) 15.9 11.5-14.5 RED CELL DISTRIBUTION WID TH eCW1 ([facility]) ID Date Data Source Basic Metabolic Profile (BMP) 09/07/2020 12:00:00 AM EST eCW 1 ([facility]) Name Value Range Interpretation Code Description Data Lisa rce(s) Supporting Document(s) 1.38 0.70-1.30 CREATININE FOR GFR eCW1 ([facility]) 36 7-18 BLOOD UREA NITROGEN eCW1 ([facility]) 86 70-100 GLUCOSE, FASTING eCW1 ([facility]) 102 98-107 CHLORIDE LEVEL eCW1 ([facility]) 133 136-145 SODIUM LEVEL eCW1 ([facility]) 52.3 >35 GLOMERULAR FILTRATION RATE eCW 1 ([facility]) 5.5 3.5-5.1 POTASSIUM SERUM eCW1 ([facility]) 8.8 8.8-10.2 CALCIUM LEVEL eCW1 ([facility]) 21 21-32 CARBON DIOXIDE LEVEL eCW1 ([facility]) ID Date Data Source WOUND CULTURE AND GRAM ST 08/22/2020 12:00:00 AM EST eCW1 ([facility]) Name Value Range Interpretation Code Description Data Lisa rce(s) Supporting Document(s) WOUND CULTURE AND GRAM ST eCW1 ([facility]) ID Date Data Source [id number] 08/09/2020 12:00:00 PM EDT [facility] Name Value Range Interpretation Code Description Data Lisa rce(s) Supporting Document(s) SARS coronavirus 2 RNA [facility] This lab was ordered by [facility] and reported by [facility]. ID Date Data Source WOUND CULTURE 07/25/2020 03:09:10 AM EDT eCW1 ([facility]) Name Value Range Interpretation Code Description Data Lisa rce(s) Supporting Document(s) FULL REPORT IN LAB NOTES ([facility]CW and [facility]). WOUND CULTURE eCW1 ([facility]) ID Date Data Source Pathology Request For Service 07/25/2020 03:09:03 AM EDT eCW 1 ([facility]) Name Value Range Interpretation Code Description Data Lisa rce(s) Supporting Document(s) SKELETAL eCW1 ([facility]) ID Date Data Source [id number] 07/20/2020 03:52:00 PM EDT [facility] ([facility]) Name Value Range Interpretation Code Description Data Lisa rce(s) Supporting Document(s) Partial Thromboplastin Time 34.0 s 24.2-38.5 [facility] ([facility]) Prothrombin Time 14.1 s 12.5-14.3 [facility] ([facility]) Inr 1.07 [facility] ([facility]) THERAPUTIC HUMAN INR VALUES INDICATIONS NORMAL RANGES PROPHYLAXIS/TREATMENT OF: VENOUS THROMBOSIS 2.0-3.0 PULMONARY EMBOLISM 2.0-3.0 PREVENTION OF SYSTEMIC EMBOLISM FROM: TISSUE HEART VALVES 2.0-3.0 ACUTE MYOCARDIAL INFARCTION 2.0-3.0 VALVULAR HEART DISEASE 2.0-3.0 ATRIAL FIBRILLATION 2.0-3.0 MECHANICAL VALVES(HIGH RISK) 2.5-3.5 RECURRENT MYOCARDIAL INFARCTION 2.5-3.5 ID Date Data Source [id number] 07/20/2020 03:52:00 PM EDT [facility] ([facility]) Name Value Range Interpretation Code Description Data Lisa rce(s) Supporting Document(s) Prothrombin time (PT) Laboratory test result [facility] ([facility]) Platelets [#/volume] in Blood by Automated count 407 10 150-450 [facility] ([facility]) ID Date Data Source [id number] 07/14/2020 03:58:00 PM EDT [facility] ([facility]) Name Value Range Interpretation Code Description Data Lisa rce(s) Supporting Document(s) Erythrocyte sedimentation rate by Westergren method 61 mm/hr 0-20 [facility] ([facility]) C reactive protein [Mass/volume] in Serum or Plasma by High sensitivity method 0.58 mg/dL 0.00-0.30 [facility] ([facility]) ID Date Data Source [id number] 07/14/2020 03:58:00 PM EDT [facility] ([facility]) Name Value Range Interpretation Code Description Data Lisa rce(s) Supporting Document(s) White Blood Count 5.2 10 4.0-10.0 [facility] ([facility]) Red Blood Count 3.02 10 4.30-6.10 [facility] ([facility]) Hemoglobin 9.0 g/dL 13.5-17.5 [facility] ([facility]) Hematocrit 29.6 % 42.0-52.0 [facility] ([facility]) Mean Corpuscular Hemoglobin 29.8 pg 27.0-33.0 [facility] ([facility]) Mean Corpuscular Volume 98.0 fl 80.0-96.0 M EDENT ([facility]) Red Cell Distribution Width 15.4 % 11.5-14.5 [facility] ([facility]) Neutrophils % 58.6 % 36.0-66.0 [facility] Mean Corpuscular HGB Conc 30.4 g/dL 32.0-36.5 [facility] ([facility]) Platelet Count, Automated 286 10 150-450 [facility] ([facility]) Lymph % 26.6 % 24.0-44.0 [facility] Eos % 2.7 % 0.0-3.0 [facility]) Bates % 9.4 % 0.0-5.0 [facility] Baso % 0.6 % 0.0-1.0 [facility] Nucleated Red Blood Cell % 0.0 % 0-0 MED [facility] ([facility]) Immature Granulocyte % 2.1 % 0-3.0 [facility] ([facility]) Lymph # 1.4 10 1.5-5.0 [facility] Bates # 0.5 10 0.0-0.8 [facility] Neutrophils # 3.1 10 1.5-8.5 [facility] ([facility] Eos # 0.1 10 0.0-0.5 [facility] Baso # 0.0 10 0.0-0.2 [facility] ID Date Data Source [id number] 07/07/2020 03:41:08 PM EDT [facility] Name Value Range Interpretation Code Description Data Lisa rce(s) Supporting Document(s) Discharge Summary [facility] [id number] [facility] [file] [id number] ID Date Data Source [id number] [facility]/07[facility]2020 [facility]39[facility] Name Value Range Interpretation Code Description Data Lisa rce(s) Supporting Document(s) Glucose [Mass/volume] in Capillary blood by Glucometer 220 mg/dL 70- 140 H [facility] ID Date Data Source [id number] 07/07/2020 08:24:19 AM [facility] Name Value Range Interpretation Code Description Data Lisa rce(s) Supporting Document(s) Glucose [Mass/volume] in Capillary blood by Glucometer 177 mg/dL 70- 140 [facility] ID Date Data Source [id number] 07/07/2020 05:36:52 AM [facility] Name Value Range Interpretation Code Description Data Lisa rce(s) Supporting Document(s) Leukocytes [#/volume] in Blood by Automated count 4.2 10*3/uL 4-10 [facility] Erythrocytes [#/volume] in Blood by Automated count 2.95 10*6/uL 4.6- 6.1 L [facility] Hemoglobin [Mass/volume] in Blood 8.9 g/dL 13.5-18 L [facility] Hematocrit [Volume Fraction] of Blood by Automated count 27.6 % 4 1-53 L [facility] Erythrocyte mean corpuscular volume [Entitic volume] by Auto mated count 93.7 fL 80-96 [facility] Erythrocyte mean corpuscular hemoglobin [Entitic mass] by Automated count 30.3 pg 27-33 [facility] Erythrocyte mean corpuscular hemoglobin concentration [Mass/volume] by Automated count 32.3 g/dL 32.0-36.0 [facility] width [Ratio] by Automated count 15.8 % 11.5-14.5 H [facility] Platelets [#/volume] in Blood by Automated count 243 10*3/uL 150-400 [facility] Differential cell count method - Blood [facility] Neutrophils/100 leukocytes in Blood by Automated count 57 % [facility] Lymphocytes/100 leukocytes in Blood by Automated count 25 % [facility] Monocytes/100 leukocytes in Blood by Automated count 13 % [facility] Eosinophils/100 leukocytes in Blood by Automated count 4 % [facility] Basophils/100 leukocytes in Blood by Automated count 1 % [facility] Neutrophils [#/volume] in Blood by Automated count 2.49 10*3/uL 1.8-7 .0 [facility] Lymphocytes [#/volume] in Blood by Automated count 1.05 10*3/uL 1.2-4 .0 L [facility] Monocytes [#/volume] in Blood by Automated count 0.54 10*3/uL 0-0.8 [facility] Eosinophils [#/volume] in Blood by Automated count 0.15 10*3/uL 0-0.5 [facility] Basophils [#/volume] in Blood by Automated count 0.03 10*3/uL 0-0.2 [facility] Nucleated erythrocytes/100 leukocytes [Ratio] in Blood by Automated count 0 /100{WBCs} 0-0 [facility] ID Date Data Source [id number] 07/06/2020 09:12:33 PM [facility] Name Value Range Interpretation Code Description Data Lisa rce(s) Supporting Document(s) Glucose [Mass/volume] in Capillary blood by Glucometer 148 mg/dL 70- 140 H [facility] ID Date Data Source [id number] 07/06/2020 05:15:16 PM [facility] Name Value Range Interpretation Code Description Data Lisa rce(s) Supporting Document(s) [facility] [id number]/FZXomRAZmm3HbRLgsXXd4QVxdSZHvB1AwWAK2xU7zGIJ8OBgBNpViGeZnTKU1 lbm [file] [facility]+nhTKsikobRPqUEx/KXCasPqHQbFVlKGY92RK91zXfIh7Bw7oREd5Oi1ksV0C3drxBUT830MMxujn [file] IqBuCcAgUI3TXp6ZMrS6HCQ5yJXjQd2MZsz7XFTQWhPgLX1IOWu= ID Date Data Source [id number] 07/06/2020 05:00:55 PM EDT [facility] Value Range Interpretation Code Description Data Lisa rce(s) Supporting Document(s) Glucose [Mass/volume] in Capillary blood by Glucometer 151 mg/dL 70- 140 H [facility] ID Date Data Source [id number] [facility] Interpretation Code Description Data Lisa rce(s) Supporting Document(s) Glucose [Mass/volume] in Capillary blood by Glucometer 134 mg/dL 70- 140 [facility] ID Date Data Source [id number] [facility] Interpretation Code Description Data Lisa rce(s) Supporting Document(s) Glucose [Mass/volume] in Capillary blood by Glucometer 141 mg/dL 70- 140 H [facility] ID Date Data Source [id number] 07/06/2020 06:48:31 AM EDT [facility] Name Value Range Interpretation Code Description Data Lisa rce(s) Supporting Document(s) History and Physical [facility] [id number]/GFAelNXSxj1TmWYtzTUx2BIhjRPShZ7DrBNZ2yN4eBPV9KHbGHdBuUcQsUVH8 m [file] AgICAgICAgICAgICAgICAgICAgICAgICAgICAgICAg ICAgICAgICAgICAgICAgICAgICAgICAgICAgICAgICAgICAgICAgICAgICAgICAgICAgICAgICAgICAg VFXgVG0LVCDhQHYrQCDeDGHqQBUbORJdLWUsWPGuREKvPTNwOGQhQKXdDWUyFWFkRALbHOYhJOIkPTUk ICAgICAgICAgICAgICAgICAgICAgICAgICAgICAgIC WsCYHjKZFrHIArRPXeBQ7CTIIaVMAoMGUwPWOdUEEvXMSzPNEcTVEgOLNrUUFeTHNwLHCdODOrHMQsQA EeGMMzFAEnELGrCUVsIYBsDISjQJXiDFTmHWDqVDShBGDyAZBaHUNcXDMaJCEcYXCtSKFuERRkPG8CYS AgICAgICAgICAgICAgICAgICAgICAgICAgICAgICAg ICAgICAgICAgICAgICAgICAgICAgICAgICAgICAgICAgICAgICAgICAgICAgICAgICAgICAgICAgICAg TINcIRLdVY7YNDPjUXXsYOJrVSAfTDSqASKdSPBhSXWjCIXeAIRqZGQvRXYwQKNjGFDtXQUuDBAxBWFp ICAgICAgICAgICAgICAgICAgICAgICAgICAgICAgIC AdGTSgOJYbOGAcQWIoTGVlJY6GAGUnXSOwUGXqVNOtAFMyMQSdLOJyOPFuUMZjWASlXUJaEOPzBNBkBF AgICAgICAgICAgICAgICAgICAgICAgICAgICAgICAgICAgICAgICAgICAgICAgICAgICAgICAgICAgIA 0KICAgICAgICAgICAgICAgICAgICAgICAgICAgICAg ICAgICAgICAgICAgICAgICAgICAgICAgICAgICAgICAgICAgICAgICAgICAgICAgICAgICAgICAgICAg LFKpLRGqHOXzZS4IZTQlQKOtBWYvYXCsCEOyROPlLPMzLUCpGHCaUQThKNJlZASlDOJyHGJiHPFwXDVt ICAgICAgICAgICAgICAgICAgICAgICAgICAgICAgIC WwPEZzFBPjJTFdRUWbHVOqYGZmTV7QDVLeLYNtIZEzODQeZQUpITBmXOHqHBJbQLRkTSTxAQReFYPbDK AgICAgICAgICAgICAgICAgICAgICAgICAgICAgICAgICAgICAgICAgICAgICAgICAgICAgICAgICAgIC JpJN6INH43lEVmx6J7ROTaAA6ufiy/Rl3VMEknxfXw pQDjLH2SMlClNF9sap2YRyVgAS8qiv7EXQdOUbMqX1A5fYEsOZDnYKTTPwRvK93pJLwjGk33EHxsEMFy EvWpHYf4Qn9VStBjM5irRQAdAnR6IOJnIeS1KHScMrG7FCXdUaShEIOuXXAxKEMtKDPEJOL8BFImEoNv LByxIX9Sv2RtnNZ7XOl+As6DQI7ly5XcDAbtDVFnPS 6itn9TBOaIHhKzG3RqceP8YVT5NSLgWn3CZHMxWPUnkBXjXPMoSKGOYdEpS1UmtI32VDQQHf5+DQplbm NeMupZVpL1ZMChy4ZrBDi0LK3ZXWMlOVx9jYDrGSKKATS0SGgzzlsaLlCNnXPqHzOprwuxHYBfFEXnEQ 6mXT6fZXZqICF5XmF4MYOZRS2PGPGvERCtwKQjGFWu JXWDRI5WPXqkVPY7FEFtwfFpiTSjTUvgRS3WKVZstfQuPipkKYQBQAe+Db6ZTR6hn9PhOFp6NVPoRJ8l hy6CUYzHXbVrH4Z7tDOlS3O6KDdqVr2YILRwQZRzPyWeRXOCRHrpBH9JQM3kyqI4KK1LtGQsSFTyPQPy uQUtTDt6Z08wkYTqKRfjYX2ISEA+Chintan+Ex5NBUJmTE NjGFLvLxIsRKQKWvHwM0KrA7SOr0UdK4MkPO91bYvinfNjSVogVT3FQK3qQZJiPAMOLZ5TvXAadD3xti EaOAKjHTBLEeKzE65wwZEdKSEpPRJ9ICRyIf0BKBKyN4MllsSxwQayagWdUKKhJHURMN2FMMbjfsAcgG XlbUckSM45eHvoIF6LAg8XVfIkXN4owq7YwBGcHj5J HKH4JU4TAHEsZYHkRCAfNGM1KYZbVlBfDVhsFXZoWEShWMF7ITJaBWUpZQ5MBkOoLVIwYbW5PZkpCOLx HYHadf1FIUYgERNjEaT1CPIlQUJnGBObOXkhLMDiDGApFPC3NMQfESRePQ8BHmIqVRUbXCV2ZTRxAYHb ZQTxrb9WWVIrRUVdMtX3ZVGaDOKcSHNwVPwpFZPvPT T0PMP3BKPjKTUmRK9UBkUaPAHnCLTaVuPyFRDnLZRdlb4DFQOvAVIySIApRFAxDVCwGVBpOXkeLQWwFW Y6ZuT3OQLtOCFoLP3GUeKpUWBdDBBcZXffNIWzAAPjwp8LBKGhXNShOxJxZDVaAEDjGBUxZYxdUYNxFO Q0YAs1ZLPmMYCaXK5COlLwBENnZTJ9NEZmQYWjTMFp fn4VIJAjOBJoCtCvOYUcIBNmIXNzQAckWTMvIQT9JIKfQVZoHRTfZK2ESvEeKTKfYCp9BnMtJQThOEGh ol3BOEEbTQMkGoP0QlYjCVYdRZQkTZzpNVPwOGW2RQTfDRRlKENdVS0MNuFyOBHwUIi1UZqxCRIhQOKn co4MWLUxARYgVKInXNZzRYGjBDRhVOlyRTGzTKK7CE l2GEJuRTThBB0GQaPnYBSvIoYvJKobAKMvSODgcj5BDXScLNZsPNI2BMWhONIvNTAvHMibWSWnWWRoRF U6RIIbBGRvRB2UQaGcGIQcUdF0RIftVSWvVCDqpd6SFKCvQPVeXEanQEUzXZKdRJUdTMidJVYzMYHpKJ n7DBQfWHCbWU7BSvBaBSOgGyOvUtFiZNFuYXUdfh0P ZFVpNFOwMlM0NJUsTTBgOCBhRSbzZVFkVPFeDZAlIZWrOJKrDD5SQqMzCHEkQaEyYtqaOJJhXTGucg1J NBApCJMyMCB5DMQmKGIzRWKiBAyfGRMzFLZ9MBI7XENtZRBuBM9RUyKsQOXyEsUqLZhfJOHwHAHbms9L OLHbIUYqLMR7LXAsUOKpKRJiOYftEJNeWAF8HMK9KY LrAVOhMH5IUmJcNUNnXpq3YUSgRDPdDFOsop7ALFNcZGPoKgP9VxHoAQVyCOQgMNrbWALxQSO8SiT3NH PyKHKxBI7PKeNvKGtgGEPRFyo9TVnlD9r4JJF2RK9FG9Jcd7HnXZMkCPWZSXowMI1vqaFcBVKoQi9PV0 xBImeaPSZhHHZoJTUuBfk2GKQ5AZxjNJT5TVQ9E9R0 PbBkMP0vRPF9BtK9PBCjZBMePSZnVCU6KLC9SBJePMt9TwDcIJX7PxZwCL2OXl2JHuX0RWM3aIFmTj7Z Tkn5CjlALdPxXD2JYEk= ID Date Data Source [id number] 07/06/2020 04:06:51 AM EDT [facility] Name Value Range Interpretation Code Description Data Lisa rce(s) Supporting Document(s) Glucose [Mass/volume] in Capillary blood by Glucometer 128 mg/dL 70- 140 [facility] ID Date Data Source [id number] 07/06/2020 12:59:51 AM [facility] Name Value Range Interpretation Code Description Data Lisa rce(s) Supporting Document(s) Leukocytes [#/volume] in Blood by Automated count 5.8 10*3/uL 4-10 [facility] Erythrocytes [#/volume] in Blood by Automated count 3.06 10*6/uL 4.6- 6.1 L [facility] Hemoglobin [Mass/volume] in Blood 9.4 g/dL 13.5-18 L [facility] Hematocrit [Volume Fraction] of Blood by Automated count 29.0 % 4 1-53 L [facility] Erythrocyte mean corpuscular volume [Entitic volume] by Auto mated count 94.9 fL 80-96 [facility] Erythrocyte mean corpuscular hemoglobin [Entitic mass] by Automated count 30.7 pg 27-33 [facility] Erythrocyte mean corpuscular hemoglobin concentration [Mass/volume] by Automated count 32.4 g/dL 32.0-36.0 [facility] width [Ratio] by Automated count 16.8 % 11.5-14.5 H [facility] Platelets [#/volume] in Blood by Automated count 268 10*3/uL 150-400 [facility] Differential cell count method - Blood [facility] Neutrophils/100 leukocytes in Blood by Automated count 61 % [facility] Lymphocytes/100 leukocytes in Blood by Automated count 25 % [facility] Monocytes/100 leukocytes in Blood by Automated count 10 % [facility] Eosinophils/100 leukocytes in Blood by Automated count 3 % [facility] Basophils/100 leukocytes in Blood by Automated count 1 % [facility] Neutrophils [#/volume] in Blood by Automated count 3.58 10*3/uL 1.8-7 .0 [facility] Lymphocytes [#/volume] in Blood by Automated count 1.44 10*3/uL 1.2-4 .0 [facility] Monocytes [#/volume] in Blood by Automated count 0.55 10*3/uL 0-0.8 [facility] Eosinophils [#/volume] in Blood by Automated count 0.16 10*3/uL 0-0.5 [facility] Basophils [#/volume] in Blood by Automated count 0.04 10*3/uL 0-0.2 [facility] Nucleated erythrocytes/100 leukocytes [Ratio] in Blood by Automated count 0 /100{WBCs} 0-0 [facility] ID Date Data Source [id number] 07/06/2020 12:38:15 AM [facility] Value Range Interpretation Code Description Data Lisa rce(s) Supporting Document(s) Glucose [Mass/volume] in Capillary blood by Glucometer 151 mg/dL 70- 140 [facility] ID Date Data Source [id number] 07/05/2020 10:53:59 PM [facility] Value Range Interpretation Code Description Data Lisa rce(s) Supporting Document(s) Glucose [Mass/volume] in Capillary blood by Glucometer 176 mg/dL 70- 140 [facility] ID Date Data Source [id number] 07/05/2020 03:52:42 PM [facility] Value Range Interpretation Code Description Data Lisa rce(s) Supporting Document(s) Glucose [Mass/volume] in Capillary blood by Glucometer 128 mg/dL 70- 140 [facility] ID Date Data Source [id number] 07/05/2020 12:21:14 PM [facility] Value Range Interpretation Code Description Data Lisa rce(s) Supporting Document(s) Glucose [Mass/volume] in Capillary blood by Glucometer 140 mg/dL 70- 140 [facility] ID Date Data Source [id number] 07/05/2020 08:13:51 AM [facility] Value Range Interpretation Code Description Data Lisa rce(s) Supporting Document(s) Glucose [Mass/volume] in Capillary blood by Glucometer 131 mg/dL 70- 140 [facility] ID Date Data Source [id number] 07/05/2020 07:40:59 AM EDT [facility] Name Value Range Interpretation Code Description Data Lisa rce(s) Supporting Document(s) Leukocytes [#/volume] in Blood by Automated count 5.3 10*3/uL 4-10 [facility] Erythrocytes [#/volume] in Blood by Automated count 2.89 10*6/uL 4.6- 6.1 L [facility] Hemoglobin [Mass/volume] in Blood 8.7 g/dL 13.5-18 L [facility] Hematocrit [Volume Fraction] of Blood by Automated count 27.0 % 4 1-53 L [facility] Erythrocyte mean corpuscular volume [Entitic volume] by Auto mated count 93.5 fL 80-96 [facility] Erythrocyte mean corpuscular hemoglobin [Entitic mass] by Automated count 30.2 pg 27-33 [facility] Erythrocyte mean corpuscular hemoglobin concentration [Mass/volume] by Automated count 32.3 g/dL 32.0-36.0 [facility] width [Ratio] by Automated count 16.5 % 11.5-14.5 H [facility] Platelets [#/volume] in Blood by Automated count 251 10*3/uL 150-400 [facility] Differential cell count method - Blood [facility] Neutrophils/100 leukocytes in Blood by Automated count 63 % [facility] Lymphocytes/100 leukocytes in Blood by Automated count 26 % [facility] Monocytes/100 leukocytes in Blood by Automated count 10 % [facility] Eosinophils/100 leukocytes in Blood by Automated count 1 % [facility] Neutrophils [#/volume] in Blood by Automated count 3.32 10*3/uL 1.8-7 .0 [facility] Lymphocytes [#/volume] in Blood by Automated count 1.39 10*3/uL 1.2-4 .0 [facility] Monocytes [#/volume] in Blood by Automated count 0.55 10*3/uL 0-0.8 [facility] Eosinophils [#/volume] in Blood by Automated count 0.05 10*3/uL 0-0.5 [facility] Anisocytosis [Presence] in Blood by Light microscopy [facility] ID Date Data Source [id number] 07/05/2020 06:10:07 AM [facility] Name Value Range Interpretation Code Description Data Lisa rce(s) Supporting Document(s) Glucose [Mass/volume] in Capillary blood by Glucometer 128 mg/dL 70- 140 [facility] ID Date Data Source [id number] 07/05/2020 12:32:26 AM [facility] Name Value Range Interpretation Code Description Data Lisa rce(s) Supporting Document(s) Glucose [Mass/volume] in Capillary blood by Glucometer 230 mg/dL 70- 140 H [facility] ID Date Data Source [id number] 07/04/2020 11:55:50 PM [facility] Name Value Range Interpretation Code Description Data Lisa rce(s) Supporting Document(s) ABO and Rh group [Type] in Blood [facility] Blood group antibody screen [Presence] in Serum or Plasma [facility] Blood bank comment [facility] ID Date Data Source [id number] 07/04/2020 11:07:45 PM [facility] Value Range Interpretation Code Description Data Lisa rce(s) Supporting Document(s) Leukocytes [#/volume] in Blood by Automated count 6.5 10*3/uL 4-10 [facility] Erythrocytes [#/volume] in Blood by Automated count 3.02 10*6/uL 4.6- 6.1 L [facility] Hemoglobin [Mass/volume] in Blood 9.3 g/dL 13.5-18 L [facility] Hematocrit [Volume Fraction] of Blood by Automated count 28.7 % 4 1-53 L [facility] Erythrocyte mean corpuscular volume [Entitic volume] by Auto mated count 94.8 fL 80-96 [facility] Erythrocyte mean corpuscular hemoglobin [Entitic mass] by Automated count 30.7 pg 27-33 [facility] Erythrocyte mean corpuscular hemoglobin concentration [Mass/volume] by Automated count 32.4 g/dL 32.0-36.0 [facility] width [Ratio] by Automated count 16.5 % 11.5-14.5 H [facility] Platelets [#/volume] in Blood by Automated count 283 10*3/uL 150-400 [facility] Differential cell count method - Blood [facility] Neutrophils/100 leukocytes in Blood by Automated count 63 % [facility] Lymphocytes/100 leukocytes in Blood by Automated count 25 % [facility] Monocytes/100 leukocytes in Blood by Automated count 9 % [facility] Eosinophils/100 leukocytes in Blood by Automated count 2 % [facility] Basophils/100 leukocytes in Blood by Automated count 1 % [facility] Neutrophils [#/volume] in Blood by Automated count 4.14 10*3/uL 1.8-7 .0 [facility] Lymphocytes [#/volume] in Blood by Automated count 1.58 10*3/uL 1.2-4 .0 [facility] Monocytes [#/volume] in Blood by Automated count 0.55 10*3/uL 0-0.8 [facility] Eosinophils [#/volume] in Blood by Automated count 0.16 10*3/uL 0-0.5 [facility] Basophils [#/volume] in Blood by Automated count 0.04 10*3/uL 0-0.2 [facility] Nucleated erythrocytes/100 leukocytes [Ratio] in Blood by Automated count 0 /100{WBCs} 0-0 [facility] ID Date Data Source [id number] 07/04/2020 11:18:00 PM [facility] Value Range Interpretation Code Description Data Lisa rce(s) Supporting Document(s) Prothrombin time (PT) 13.3 s 12.5-14.9 [facility] INR in Platelet poor plasma by Coagulation assay 1.00 [facility] Routine intensity oral anticoagulation I NR is typically 2.0-3.0. Target INR must be clinically individualized. ID Date Data Source [id number] 07/04/2020 11:18:00 PM [facility] Value Range Interpretation Code Description Data Lisa rce(s) Supporting Document(s) aPTT in Platelet poor plasma by Coagulation assay 27.9 s 24.0-33. 0 [facility] ID Date Data Source 07/04/2020 11:34:21 PM [facility] Value Range Interpretation Code Description Data Lisa rce(s) Supporting Document(s) Bilirubin.direct [Mass/volume] in Serum or Plasma <0.3 [facility] ID Date Data Source 07/04/2020 11:34:21 PM [facility] Value Range Interpretation Code Description Data Lisa rce(s) Supporting Document(s) Albumin [Mass/volume] in Serum or Plasma by Bromocresol green (BCG) dye binding method 3.7 g/dL 3.5-5.2 [facility] Bilirubin.total [Mass/volume] in Serum or Plasma 0.3 mg/dL <1.2 [facility] Calcium [Mass/volume] in Serum or Plasma 8.1 mg/dL 8.8-10.2 L [facility] Chloride [Moles/volume] in Serum or Plasma 105 mmol/L 98-107 [facility] Creatinine [Mass/volume] in Serum or Plasma 1.07 mg/dL 0.70-1.20 [facility] Glucose [Mass/volume] in Serum or Plasma 133 mg/dL 70-140 [facility] Alkaline phosphatase [Enzymatic activity/volume] in Serum or Plasma 45 U/L 40-129 [facility] Potassium [Moles/volume] in Serum or Plasma 4.4 mmol/L 3.4-5.1 [facility] Protein [Mass/volume] in Serum or Plasma 6.5 g/dL 6.4-8.3 [facility] Sodium [Moles/volume] in Serum or Plasma 138 mmol/L 136-145 [facility] Aspartate aminotransferase [Enzymatic activity/volume] in Serum or Plasma 24 U/L <40 [facility] Urea nitrogen [Mass/volume] in Serum or Plasma 19 mg/dL 8-23 [facility] Osmolality of Serum or Plasma by calculation 290 mosm/kg 275-300 [facility] Creatinine/Urea nitrogen [Mass Ratio] in Serum or Plasma 18 [facility] Bicarbonate [Moles/volume] in Serum 23 mmol/L 22-29 [facility] Alanine aminotransferase [Enzymatic activity/volume] in Seru m or Plasma 32 U/L <41 [facility] Anion gap 3 in Serum or Plasma 10 mmol/L 8-15 [facility] Glomerular filtration rate/1.73 sq M pre dicted among non-blacks [Volume Rate/Area] in Serum or Plasma by Creatinine-based formula (MDRD) >6 0 [facility] Glomerular filtration rate/1.73 sq M pre dicted among blacks [Volume Rate/Area] in Serum or Plasma by Creatinine-based formula (MDRD) >60 [facility] ID Date Data Source [id number] 07/04/2020 11:34:21 PM EDT [facility] Name Value Range Interpretation Code Description Data Lisa rce(s) Supporting Document(s) Amylase [Enzymatic activity/volume] in Serum or Plasma 100 U/L 28- 103 [facility] ID Date Data Source [id number] 07/04/2020 11:34:21 PM EDT [facility] Value Range Interpretation Code Description Data Lisa rce(s) Supporting Document(s) Magnesium [Mass/volume] in Serum or Plasma 1.8 mg/dL 1.6-2.4 [facility] ID Date Data Source [id number] 07/04/2020 11:34:21 PM EDT [facility] Value Range Interpretation Code Description Data Lisa rce(s) Supporting Document(s) Lipase [Enzymatic activity/volume] in Serum or Plasma 70 U/L 13-6 0 H [facility] ID Date Data Source [id number] 07/04/2020 11:34:21 PM EDT [facility] Value Range Interpretation Code Description Data Lisa rce(s) Supporting Document(s) Phosphate [Mass/volume] in Serum or Plasma 2.5 mg/dL 2.5-4.5 [facility] ID Date Data Source [id number] 07/04/2020 11:18:31 PM EDT [facility] Value Range Interpretation Code Description Data Lisa rce(s) Supporting Document(s) Lactate [Moles/volume] in Serum or Plasma 1.6 mmol/l 0.5-2.2 [facility] ID Date Data Source [id number] 06/22/2020 12:00:00 AM EDT [facility] ONE[facility] Patient Name: LOC GUTIERREZ [id number] [facility] Date of : 1935 3 Date of Exam: 06/22/2020[place] [id number]#: Fax: [phone] EXAM: MRI LUMBAR SPINE WITHOUT&WITH [...] MD 06/22/2020 5:44 PMEastern Time ([place] & [place])Ned/Abbe you for referring LOC GUTIERREZ to our office. Electronically Signed - APOLINAR 06/23/20 10:12 Name Value Range Interpretation Code Description Data Lisa rce(s) Supporting Document(s) ID Date Data Source [id number] 06/14/2020 01:20:00 PM EDT [facility] ([facility]) Name Value Range Interpretation Code Description Data Lisa rce(s) Supporting Document(s) Creatinine For GFR 1.19 mg/dL 0.70-1.30 [facility] ([facility]) Glomerular Filtration Rate Laboratory test [facility]) <content>Units are mL/min/1.73 m2</content>
<content></content>
<content>Chronic Kidney Disease Staging per NKF:</content>
<content></content>
<content>Stage I & II GFR >=60 Normal to Mildly Decreased</content>
<content>Stage III GFR 30- 59 Moderately Decreased</content>
<content>Stage IV GFR 15-29 Severely Decreased</content>
<content>Stage V GFR <15 Very Little GFR Left</content>
<content>ESRD GFR <15 on STOCK CHECKERER</content>
<content></content> ID Date Data Source [id number] 06/14/2020 01:20:00 PM EDT [facility] ([facility]) Name Value Range Interpretation Code Description Data Lisa rce(s) Supporting Document(s) Urea nitrogen [Mass/volume] in Serum or Plasma 20 mg/dL 7-18 [facility] ([facility]) ID Date Data Source [id number] 04/14/2020 02:56:31 PM EDT [facility] Name Value Range Interpretation Code Description Data Lisa rce(s) Supporting Document(s) History and Physical [facility] OQVQEz7wBwJYGwMx14/NPQwbOETbg0EgSVpqVJo7ZCetODDbH5YfBYV1xZ4iWCS4MDtOEuEvHnBsCmC1 [facility] [file] ICAgICAgICAgICAgICAgICAgICAgICAgICAgICAgIC AgICAgICAgICAgICAgICAgICAgICAgICAgICAgICAgICAgICAgICAgICAgICAgICAgICAgICAgICAgIC FyYRZsIBTvSW8XVPCeYZOpGXKxRKGzPUHdVBLoVNRvYNHfQRQgANUuRLEfBKPiCBIpMJWvGTAdDDYuBH AgICAgICAgICAgICAgICAgICAgICAgICAgICAgICAg FSZpPITlDUSbVHTsWLBnBNLxSH8BCUWdKIXsYQVrUOOyOMKpRIEkYVZxYMDxNSQcYWIyFKErUDMgCFIv ICAgICAgICAgICAgICAgICAgICAgICAgICAgICAgICAgICAgICAgICAgICAgICAgICAgICAgICAgICAg QZ3JTPDgKNQcYGPmHQMcAMDpZEBdIGEuBINxJRLpNH AgICAgICAgICAgICAgICAgICAgICAgICAgICAgICAgICAgICAgICAgICAgICAgICAgICAgICAgICAgIC OxULCtMMGjCJSfZX8WKEChZFXvIYRpTLAiCQZoLZXtMWXkNUNsVWEnLAYtSWJxXVDnOHCmMNLpEBLqMB AgICAgICAgICAgICAgICAgICAgICAgICAgICAgICAg XUWfIKEvETOiHUFhSSTrFNPcCBSuWV3TYZMlBKLhKPNlYVRtNPSrHXRfRUMoMRYpASIjTWBdBGJdUBEq ICAgICAgICAgICAgICAgICAgICAgICAgICAgICAgICAgICAgICAgICAgICAgICAgICAgICAgICAgICAg ZMGmNF4QNYSfYKDdQFCiNQRgFLQmESBnDGUuYSBxUX AgICAgICAgICAgICAgICAgICAgICAgICAgICAgICAgICAgICAgICAgICAgICAgICAgICAgICAgICAgIC HbKKHsEKExZMCeSMUeDA0NUAIzOGStAYLbZSHmRRGuZFEgDJSrJCYeNJDgKDDjIIBjHBMqBKWaGTMsTV AgICAgICAgICAgICAgICAgICAgICAgICAgICAgICAg KINxCMDiFBDoKISlMYBxZAXsPETbGPBfNW0OIGAiEENwTRHiSRQhQWYnAABjMXPvUWToCBXlQPJdDZRx ICAgICAgICAgICAgICAgICAgICAgICAgICAgICAgICAgICAgICAgICAgICAgICAgICAgICAgICAgICAg SIRnDNEwUW5YYSViVNPyWTJhXBFlCIDoTHCcFGTbJT AgICAgICAgICAgICAgICAgICAgICAgICAgICAgICAgICAgICAgICAgICAgICAgICAgICAgICAgICAgIC AyAOWyYPHrYXQfQMPvGTNyRB4ZKY07uIGel8E5ADSbBW5ldyv/Sa8JXHdicsNanQEiSK8XOpGoCI0edj 0ZZoWxCC3olx7TCRmJCaIjT6F9lRQxMHVuXBIWCqJc D08zYKblAq18GGfmAKBkOvFkXLw7Qr2SHzQjL8smOETaRpF0TREjDsD8JOWeWbM7AZZgIeQwINwpXU2N j7RgcZVzPDg+Ym8ZFQ3al4GgPIlaMwNuZN8ulo0ZKFxFHxOnH6UgfvB5VSP1PHOwPd1FYUGtETQwmLQd ZGGdYBRMCbZiY3SsuO40MMKYOz2+DQplbmRvYmoNCj F4AFWwi8XoHPk3QW9KZFBiJSf5nEXgQKSITJK7YI4rB0ebHAyuVeHIj5E5BK42WMfxFQGlJYCpXi3wAP 9hBMVvGELzIdS6OSLVBE6QMWIeEBNbyDPoTGTvQYBMVQ2JPWouEWF9QXAahjWrhKTxYXdqUZ3RAHFtbd QgMjMgMCBSDQo+Hz6NPF3lb0KkMPavANPmBM7vsf7A AWfDEnCnZ4I6sVVrA2H1AWaxSj6XJAWpZLBiXvXsMFAKAShrGY2WHL5muzS9TE5JrEWvSRBfGOQsiSBn MZu7G59fbVWzNAdnJG7SOGI+Chintan+Js7WHDTjMZBoWOJhDvWrYHAMGrLkU7PeP7YWy1PxA3NmWR85nAqf egZlEJdxGH6QEF2kBTEhDVVQKC5RaDQeiJ9ajpBiWl XvRUSFYnVdL45gaZInRULdLEYjVHGzGq2CVXEnM5LskqCfqYblhvOnFECwXNOVJW7PGJmafvSzcBXsrZ vkVC44xCjzSC6AZz5BKjAkRO2jdn5BnEByZv5POCNzEr9HCFHfNZVwAENrTYL6QWHtFjYfSBghHLSgPN KlKIT1NVDnFIAiDS1MUgHyDAFoCvQgFZfhDTKiHJYl al1JZDKhNYDpOtrrMcXrXWGwFAXnTCdrNVAzLHQmEXO5VFZeSQNsIU2YYtUcGOUfKFPgQnyrXMFcLNMp al6JSVVrLXYbImB5PJLvPSLyXCPlRYcjANSvDPS3FgL3YFUfISUcFI9RPaVyHSVdZQG4VaOxADNxWBXd os5MNYAsCSGiWcn7DqYkNKXzJEXjXZxbQPQmNSK5TL ctZMFqDOHeCU9WRiOkNZHfWNtqXOPsWBKoIJDdkr3WTHUlLQNyEUHbBhNjJLXqTVSuUWmlJVSbZQY0AS ImMFWcFHLdDF1CNzQpXDExLIj6XnmaSPHeXTKtfo9KFGNxSYUaMWI4FKLfNHSnCAIaQQvbCKQlUVN9JO Z0QNDbNSBuOR8LQaAnIUYpQnEoXSYyAWJyOVVspz5E DXMmLJPzNIY8UsNsPNTzEFXmKHeeTAMxYHRbEizfBNEjSCMjHC4GKmJySDItRiQiApHoOHUoVRMdqv2W TSXbIGWbDrT4BsOsTXVuNWAyZCwbWRPaMYNmJHZ2PWJmPSBrBO9DWhChIUGnIrGnSSlkVQZlVDFgeo8T PHIyQZKcWRX5UJRrIVCnLINvHKbtRWEoQUN7KeIpDP QmMRWpBH5AIcBkSPplJQBDSqr8AVvqB2b0WZLhCd7QZ1Ngy8WpAwDnXFWTOQmjYZ9uiuChMSIdVd6KJ8 lWPtvkI2V5MjA7YTKbEqL9KQK2HZpgWkYvVXi8POo5JRA7Nb0eTYXwAtM3UicvBnG4XeSuOdGnOXApL1 HrSBXeMeClFKZpTmHeTX4TAl1ULbB1PIM5gWFyYi6XDpU4ZzPDJmDdYU1HSYb= ID Date Data Source [id number] 04/12/2020 10:46:40 AM EDT [facility] Name Value Range Interpretation Code Description Data Lisa [facility] Supporting Document(s) Discharge Summary [facility] LWKUNa2rWvCITdBr05/IARujSBQqt2MfDPenNVp4EXrnQTDcG7ApGQS5eS1tHAU6UCfYGoUrTvXuRrF8 lbm [file] [facility]+Lb700Tcd+59lv0rp3bUkmeFpENGK/gXdXw/EMGSPYpoU3qNcBxxRxhHugtcMmUh8boZaK3 [file] AgICAgICAgICAgICAgICAgICAgICAgICAgICAgICAg ICAgICAgICAgICAgICAgICAgDQogICAgICAgICAgICAgICAgICAgICAgICAgICAgICAgICAgICAgICAg ICAgICAgICAgICAgICAgICAgICAgICAgICAgICAgICAgICAgICAgICAgICAgICAgICAgICAgICAgICAg DQogICAgICAgICAgICAgICAgICAgICAgICAgICAgIC AgICAgICAgICAgICAgICAgICAgICAgICAgICAgICAgICAgICAgICAgICAgICAgICAgICAgICAgICAgIC AgICAgICAgICAgDQogICAgICAgICAgICAgICAgICAgICAgICAgICAgICAgICAgICAgICAgICAgICAgIC AgICAgICAgICAgICAgICAgICAgICAgICAgICAgICAg ICAgICAgICAgICAgICAgICAgICAgDQogICAgICAgICAgICAgICAgICAgICAgICAgICAgICAgICAgICAg ICAgICAgICAgICAgICAgICAgICAgICAgICAgICAgICAgICAgICAgICAgICAgICAgICAgICAgICAgICAg ICAgDQogICAgICAgICAgICAgICAgICAgICAgICAgIC AgICAgICAgICAgICAgICAgICAgICAgICAgICAgICAgICAgICAgICAgICAgICAgICAgICAgICAgICAgIC AgICAgICAgICAgICAgDQogICAgICAgICAgICAgICAgICAgICAgICAgICAgICAgICAgICAgICAgICAgIC AgICAgICAgICAgICAgICAgICAgICAgICAgICAgICAg ICAgICAgICAgICAgICAgICAgICAgICAgDQogICAgICAgICAgICAgICAgICAgICAgICAgICAgICAgICAg ICAgICAgICAgICAgICAgICAgICAgICAgICAgICAgICAgICAgICAgICAgICAgICAgICAgICAgICAgICAg ICAgICAgDQogICAgICAgICAgICAgICAgICAgICAgIC AgICAgICAgICAgICAgICAgICAgICAgICAgICAgICAgICAgICAgICAgICAgICAgICAgICAgICAgICAgIC AgICAgICAgICAgICAgICAgDQogICAgICAgICAgICAgICAgICAgICAgICAgICAgICAgICAgICAgICAgIC AgICAgICAgICAgICAgICAgICAgICAgICAgICAgICAg RJUbYBQzJSAlJOAbCHTaQVPfYHNsALTfZFQqZNq6H5lnTEUqRSYgHS4bVIr0Pn0+BMcEWzHgIQD3yhBr jL4QCR4qz0MuWIcfTAIsu0OxDJg1PB9JGPCjFNvkOP5LDTbeep7ONKYrKRDyeSFUk1knHlEtEMZ9HHAf YdclLB0YWICiH5zcxeThNHGwCDMIKOrbDRFHQPmrQH EZKKXvTYRzNjDtXnLeIFMbDC6ZMETwO638bxAgWG9RUo1MIpQtDR3rnk6PIgBvZNJuAqsBVtm4KZarFV 8LlFByzTYlGzZePOGPEfRyS3yrl7QcItXaVLAOWCuiVV9Qb6FsgQFiBZo+Iw3VLJ9ab0PgXGmrVmJfAR 4cap6BYWeLIqPeD1EnsXxeHYLkr9IpRJYvLFOVlR8y BPM5VGY9JJ8hlRHgYOJpEFAHocT3rDgzExYhTUQgBq1mUO0zWYJrCLIyWaL9TCMMAP9MPKCfBAHtxVZz QIHsGBHABG8SDZpdUSW8BPOdqcQklVBnNVtoKR9WJTVbqnVcIvDtVQDYXNf+Gr9JNN5vn7EmMPeeHWNq ZM6wei0OIRvCAlNrF4L2wRWaJ9E1BZtkTm4PDGHfZK GlWzRxSEHNJEqsSO0KWL1cxwJ1GK6ZcURdICGsOFDhqRYjBGo5X68lwTYdAJegTE9TEUY+Chintan+Pg0KIC ExNLLsSEFhBuQeQVXNZrIlP7GaZ0IKu8QrF6LuJP84eVpcitUtHWiuGD9ZST4zDTHdEOYADM8BgISsoP 9auyUwEuEfRKTFCfIwF30otUOoTRPpZHZtAXPtXy3P UYClO3KjwfUsdEnvmjUlBNGpIECZTN2RINjfixOvgKGeoSayPU82hMsqFK6BXf6WSlQlRY6kme0UyBOf Ap5XRRJjQW7LBXUlHTOiAVKeMCI0OLYxVsVpBRrpDJNfKSHoHFR2XPYuJQPpYF5IYvHfKQIvBvD6RQco SYTtSVJkyv7JRQBfFQUgILNqRoVwVWGrKXDwIQmyJX MqQZMaVUM4YNRwBVBzDO0UFyMdNHLnEDU4DTNfOGQbVJJmvq1XXTBjLKRdNrV4IlUvIBRtFPIoAEoyHX BxLWE4FMb3MYXnMMEvMO6SFiUgUDLaTSObKKTrCEShEFWpze8QYXTwVUBeTYkqAIKfPCHeZWUpXVznVW BtJVP3WEN1OLPmPTSiSX3EGdWfYKZtYPGwNEUyWGGs IDUgbn2IWWAhFHXoKFI7NXFlSLJeXOYfUIbhTYWhXISqJFCqFYThCJHtYN1LFkQiCQJzGWIuMTfbVWNi PHFfae4COFVkCKExYhh4EbArHAIjYHIvFIsaXCKoZYQ3JMG3ZNOgZKVwEP1MCuOrPFLqFVDcJZzjLACq OMAqtj3BSJStRDDoZBFpAaBwAIIcLYDiTQmrDGRcWR G6RIX9OPYuLEJtME0GCfXdJDAnWZS1QODvGAMkOMIwhc0DTKUfAONiKkK7NFMeKYGeVQLqGAleLSJcBC Y0Mdq9YKAoGNKtNG5EZvJcSGDsFbv5LYtbFAWiHQKgsc4CBFDeDKBuLjo7NqJyPELfBIEpAFevCZReGN Y4JUaqORDwVUTiLL6RVoRqRYOpBjH8ZFnsNESbRAPz rp2UMNWfZOSvUjF3RxAhRTZyQRBpDJzmXBVcZHCyNvv4TPGqIEDvRL1VHsTgPBYvQmZ9JZtpIQAxBUOl ow4NNWLgDPAxHgr8ZZXhJHSbFSJhCVrfUACbXLI3GCwlLWJeFJAmUQ3ITjReJBKdWyB2JIUeZFKySWWc nk5WEQAjBGArBZnmSvBdJTNiNVInAQfzHPBmTTX3KK wiIJDaAEKaSW0EDwUbALtoXBRBRqd5PZwfI5c6ATMnGT9HS6Ago0MzKaGuDRMNNHqkVX5uxsAlGLZlYy 1FC8mSZjrvONo2DCSgJhDgOXH0JEOuMpM1IJKiMEloHgrbHrpzUw0sKNQ8ZiqoW8LeWMZlCXXuZrRtNe nxGkS4IQCoSTWeGHE0XpHqMB4CCn2NDfF7HQQ8yIZgJv9QSwCaBUHRMaViLG2LJQu= ID Date Data Source [id number] 04/12/2020 07:34:21 AM [facility] Name Value Range Interpretation Code Description Data Lisa rce(s) Supporting Document(s) Glucose [Mass/volume] in Capillary blood by Glucometer 219 mg/dL 70- 140 [facility] ID Date Data Source [id number] 04/11/2020 08:46:28 PM [facility] Value Range Interpretation Code Description Data Lisa rce(s) Supporting Document(s) Glucose [Mass/volume] in Capillary blood by Glucometer 226 mg/dL 70- 140 [facility] ID Date Data Source [id number] 04/11/2020 05:32:28 PM [facility] Value Range Interpretation Code Description Data Lisa rce(s) Supporting Document(s) Glucose [Mass/volume] in Capillary blood by Glucometer 190 mg/dL 70- [address] [facility] ID Date Data Source [id number] 04/12/2020 09:02:48 AM [facility] Cmnt XXX-Imp : NoneMicroorganism XXX Cult : 2019 nCoV Real-Time RT-PCR: NOT DETECTEDTest performed using the Rhe[employer] COVID-19 MDx Assay. This test is only for use under the Food and Drug Administration's Emergency Use Authorization.Additional information is available on the following FDA websites for health care providers and patients. https://www.fda.gov/media/540227/download , https://www .fda.gov/media/211508/download Name Value Range Interpretation Code Description Data Lisa rce(s) Supporting Document(s) ID Date Data Source [id number] 04/11/2020 03:00:00 PM [facility] Cmnt XXX-Imp : NoneMicroorganism XXX Cult : 2019 nCoV Real-Time RT-PCR: NOT DETECTEDTest performed using the Rhe[employer]ix COVID-19 MDx Assay. This test is only for use under the Food and Drug Administration's Emergency Use Authorization.Additional information is available on the following FDA websites for health care providers and patients. https://www.fda.gov/media/076440/download , https://www .fda.gov/media/093493/download Name Value Range Interpretation Code Description Data Lisa rce(s) Supporting Document(s) Microorganism identified in Unspecified specimen by [facility] This lab was ordered by [facility] and reported by [facility]. ID Date Data Source [id number] 04/11/2020 02:57:37 PM [facility] Name Value Range Interpretation Code Description Data Lisa rce(s) Supporting Document(s) [facility] CIYDWx9iXjIIHxCl97/AJOjmOXVie3MrNOzdOBs7FUeiNTSiK4HtDVF5xK7mCTO7CPrPKxFhZtMdXyAc [facility] [file] ICAgICAgICAgICAgICAgICAgICAgICAgICAgICAgIC AgICAgICAgICAgICAgICAgICAgICAgICAgICAgICAgICAgICAgICAgICAgICAgICAgICAgICAgICAgIC IsJP6KJRVnHHBkHGVoGDBdHNJzOXWbWESsEABqGTVeBUSgSIKzHJSzJJMhQBEmNHIeDMVhZXAqFTJbQQ AgICAgICAgICAgICAgICAgICAgICAgICAgICAgICAg TBOoBZIbNSWrPOWtNA4JINPsEDRxINFqHRPzSPLyZCVqVXQyTZIgAJCgROInENLiVZDhANBbXGAsMTUa QPImSUCwNOUoKERjMAZbIGXjFNFcFYDeQBTdWKDkSCDbXBIeTIHrBUGpRRLyBWAiCKXgSJVkSU4NULRb ICAgICAgICAgICAgICAgICAgICAgICAgICAgICAgIC AgICAgICAgICAgICAgICAgICAgICAgICAgICAgICAgICAgICAgICAgICAgICAgICAgICAgICAgICAgIC RlQZCyPS1DJYJcOJRbULUkZIJaIOBhVAIvLMNdDKWhXOHwKVLzCZMhYUBqFEDbSPEnGSAvUPBuTRUuPR AgICAgICAgICAgICAgICAgICAgICAgICAgICAgICAg COSeUSHaMKJuSUUoHKGxJC3LSHIaOGEzFYOnHHRbPRMuSZJfBCEjOTCtNQYmPVSfYDFvULEvBQXnCZKe EDLgWWJdGGHmQHYdCVHtIZTrQIIgWNPdFJAdNRYlMIPsFGNfPCFiLOEuDGVjNKJlFYMpIPNpITTmLV9M ICAgICAgICAgICAgICAgICAgICAgICAgICAgICAgIC AgICAgICAgICAgICAgICAgICAgICAgICAgICAgICAgICAgICAgICAgICAgICAgICAgICAgICAgICAgIC OiWFYwNJAdJB4WMIJjDPTyRWOvUCEsBZIoAYOmWNPlNAEmDAJwBGRdLYVzZYWhKAEkYXWaBJVzSHOgOS AgICAgICAgICAgICAgICAgICAgICAgICAgICAgICAg TAZpMUVqLRTwBRJsOXKaROSgVV6PNWMbBVFkBHAgFMIiXIBdIUNwLGFwVUOyINJcTGXjVXEyQUIpJVHt ICAgICAgICAgICAgICAgICAgICAgICAgICAgICAgICAgICAgICAgICAgICAgICAgICAgICAgICAgICAg QE3NEQJwNPUgPOJrLXAbALGbGTDfQFSjJTYtVLAjQB AgICAgICAgICAgICAgICAgICAgICAgICAgICAgICAgICAgICAgICAgICAgICAgICAgICAgICAgICAgIC BlCVPfSUDvIULiGB0EYA63lCOwk7N1JOWqVD4vssx/Uv0NXYxgnlJfnTOsNI0YBnOeJR1wkh8XHbElCA 5kdq9IPLlGXtYbI8L7zCKdRVFhLYXNUaBpI30aOYhi Gf64NWczYCImLuNoPMi8Kx2QJeCtM5xxDIBkUzI3TCAsNvX9FRRoRcMeJXxeRQ5Vv3WiaXBoVTu+Pg0K QS6vh1WdSBrlQnWxYB2dpj3JWWhZGjBwI9SxvsE5GNY0YDYbEs1LYYZtBKAlzYGnEpRqXVHCZsZuB5Dl cI21DONERj4+CQsabcGvWnkVQsA6NTLfm7VnXSo4DB 8HVIZfYXq1iZEuL52gr5KohSPpWveiDWLqwLkqxtLIGHKbO0FomyKhJKrOT8qrGSZvKy1nPo3tLTZyTJ IdOaR7KYTJKY6XGMRbMQBemZQiTSOvEQYVFS9YMGguSOU3MXFvpiKyhGAbIZtjRX1EOWHrvtBrHRKmJI BSDQo+Cp5LXL5lq7VyGPgiOETnYE9dfz1TVBeSRvUo F2Z5dONhN0X4PXehGt5DFHGcULQsLALbOURGODbbAI0DNS2dilG7HX0ReWQiPZEbBJRjeZBfLYr3O38s lHPqCEkvBO3OCOX+Chintan+Lu5IEFUeSPNxPVRlBcGoXKQCFcWzK9ImX2RFt4PsQ6TiTJ47vXuiwfYpGBgu SQ9NWT8ePDPzYWEZKU4LzRXweU0tcyWzSgEwPZOQTx BvT78mdSTdTXJuXLA8CYFxXp7IFVRfH5HjwkXtkBbeykYpGSDoMBTKLY8DIXepowNexHEldPxsET29oC rxZV8HQk5MBcSxLB4jvo5JaVSvEk8ADZIaHF2ZJYUhKSIqRXSwTQJ2GXAeEhLjIFvnHCShSOUqPDW2TT EkCDHkTH7USaFdBPSuFTe8EyGiKYJqQTVocf0EOWYa CFYoLMD4ElEtQQStQZYlPDnuVLQfWCJyBYP1FVArJHZqRZ1DLeXsCKHfRTV5FBUpJIHyBQAxyk9OKEIs EYUjGjouXTGfJTOhLKRuXXibERRqDGO4IrBkEUMnVLIdRB1UUfPiFRYnMHN3AsxkCPBaFRSlkf0MFHRc IFAvTTo9WzXdGJObUNOzMWjnCLWdNDT5UPpbHRFgYU XkIP7BSyWxWFQlEIAjZnCjVYCoXSHiwn7KZOIxNOGxXqMqTvAoLJTbIPNgTQsnWKToUJV3BWF4EBFeFF XxTO5ONsJdIXEsFFw3HEBjIATrWZLrxa9PUKIqWLUbLVTvMkBeVGByNDWpNQydSUBgLKJ6DSUqILEcEZ DkCR1XOhOkMATySQj2ImUjDPNlBYLqfm3JKLWeQFIm BJE0KVIuPPAuWEJqEKv8eoJvdPVeTJn0IV5GK7EmusRiJQfWTo7Uk799KXO9YWOxYs5WL4fsXe0wDALp EYPMVy9HKCa7XUG1DwHpWzOqCuJoMROqUtWdCxL6EFSdWABeLDA7JfB+MUs0PUB8R2FzC8ZrRZEwFMPk EIEcGMC5WEC2MRQ4UVF3IP5pGGUZSl2+EZccvBWfwKpxJRHFAim3HnDINzXsBE8ZYMi= ID Date Data Source [id number] 04/11/2020 11:56:47 AM [facility] Value Range Interpretation Code Description Data Lisa rce(s) Supporting Document(s) Glucose [Mass/volume] in Capillary blood by Glucometer 210 mg/dL 70- 140 [facility] ID Date Data Source [id number] 04/11/2020 07:52:35 AM [facility] Value Range Interpretation Code Description Data Lisa rce(s) Supporting Document(s) Glucose [Mass/volume] in Capillary blood by Glucometer 193 mg/dL 70- 140 [facility] ID Date Data Source [id number] 04/10/2020 09:16:53 PM [facility] Value Range Interpretation Code Description Data Lisa rce(s) Supporting Document(s) Glucose [Mass/volume] in Capillary blood by Glucometer 240 mg/dL 70- 140 [facility] ID Date Data Source [id number] 04/10/2020 05:23:08 PM [facility] Value Range Interpretation Code Description Data Lisa rce(s) Supporting Document(s) Glucose [Mass/volume] in Capillary blood by Glucometer 150 mg/dL 70- 140 [facility] ID Date Data Source [id number] 04/10/2020 12:19:26 PM EDT [facility] Name Value Range Interpretation Code Description Data Lisa rce(s) Supporting Document(s) Glucose [Mass/volume] in Capillary blood by Glucometer 183 mg/dL 70- 140 [facility] ID Date Data Source [id number] 04/10/2020 10:48:03 AM EDT [facility] Name Value Range Interpretation Code Description Data Lisa rce(s) Supporting Document(s) Consultation [facility] [id number]/NDRpjPVWyy1UlQQidSZw3QNnvVDWoT2RmKBA3pP8dYBU6VJdSMlVoOyYwZdEq m [file] BxXcY1JOc+PL4iFJm+Kg9Iw6ZmhtO3vqKcANr6NqupICltWDRKBg9R ID Date Data Source [id number] 04/10/2020 08:29:04 AM EDT [facility] Name Value Range Interpretation Code Description Data Lisa rce(s) Supporting Document(s) Glucose [Mass/volume] in Capillary blood by Glucometer 323 mg/dL 70- 140 [facility] ID Date Data Source [id number] 04/09/2020 09:38:18 PM [facility] Value Range Interpretation Code Description Data Lisa rce(s) Supporting Document(s) Glucose [Mass/volume] in Capillary blood by Glucometer 210 mg/dL 70- 140 [facility] ID Date Data Source [id number] 04/09/2020 05:13:28 PM [facility] Value Range Interpretation Code Description Data Lisa rce(s) Supporting Document(s) Glucose [Mass/volume] in Capillary blood by Glucometer 151 mg/dL 70- 140 [facility] ID Date Data Source [id number] 04/09/2020 12:15:08 PM [facility] Value Range Interpretation Code Description Data Lisa rce(s) Supporting Document(s) Glucose [Mass/volume] in Capillary blood by Glucometer 240 mg/dL 70- 140 [facility] ID Date Data Source [id number] 04/09/2020 08:14:54 AM [facility] Value Range Interpretation Code Description Data Lisa rce(s) Supporting Document(s) Glucose [Mass/volume] in Capillary blood by Glucometer 204 mg/dL 70- 140 [facility] ID Date Data Source [id number] 04/08/2020 09:14:07 PM [facility] Value Range Interpretation Code Description Data Lisa rce(s) Supporting Document(s) Glucose [Mass/volume] in Capillary blood by Glucometer 216 mg/dL 70- 140 [facility] ID Date Data Source [id number] 04/08/2020 05:04:29 PM [facility] Value Range Interpretation Code Description Data Lisa rce(s) Supporting Document(s) Glucose [Mass/volume] in Capillary blood by Glucometer 158 mg/dL 70- 140 [facility] ID Date Data Source [id number] 04/08/2020 11:59:10 AM [facility] Value Range Interpretation Code Description Data Lisa rce(s) Supporting Document(s) Glucose [Mass/volume] in Capillary blood by Glucometer 184 mg/dL 70- 140 [facility] ID Date Data Source [id number] 04/08/2020 08:43:59 AM EDT [facility] Name Value Range Interpretation Code Description Data Lisa rce(s) Supporting Document(s) Consultation [facility] [id number]/YQVgjRBMxz4XfGRpdVNr2UHhgXQSgI6QoXGH0gU6xHIG7SSrJTiQsRkUoOgZe lbm [file] [employer]/TLIPILQzi9KFsT3YXhRbjy/7SV73VgzbrGKFXLFRPeUf7m/P9B7BS1t2gZMrelh5wQGE0jMRvuLW [file] [id number] ID Date Data Source [id number] 04/08/2020 07:56:56 AM [facility] Name Value Range Interpretation Code Description Data Lisa rce(s) Supporting Document(s) Glucose [Mass/volume] in Capillary blood by Glucometer 256 mg/dL 70- 140 [facility] ID Date Data Source [id number] 04/07/2020 09:54:04 PM [facility] Name Value Range Interpretation Code Description Data Lisa rce(s) Supporting Document(s) Glucose [Mass/volume] in Capillary blood by Glucometer 208 mg/dL 70- 140 [facility] ID Date Data Source [id number] 04/07/2020 07:56:07 PM [facility] FLUORO ART LOWER EXTREMITY-OR [id number] RESULTInterpreted by:Yoli Mcgowan, MDDate of surgery: 04/05/2020 1. Right femoral to anterior tibial artery bypass with non-reversed tunneled left great saphenous vein2. Industry of left great saphenous vein3. 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 POST PROCEDURE DIAGNOSIS: Ischemic rest pain and dry gangrene of the right foot SURGEON: Yoli Mcgowan MD [facility] REPRESENTATIVE: Michelle Petersen MD, Yonis Jean MD ANESTHESIA: [...] rce(s) Supporting Document(s) ID Date Data Source [id number] 04/08/2020 12:19:55 AM [facility] Value Range Interpretation Code Description Data Lisa rce(s) Supporting Document(s) Glucose [Mass/volume] in Capillary blood by Glucometer 165 mg/dL 70- 140 [facility] ID Date Data Source [id number] 04/07/2020 12:07:46 PM [facility] Value Range Interpretation Code Description Data Lisa rce(s) Supporting Document(s) Glucose [Mass/volume] in Capillary blood by Glucometer 198 mg/dL 70- 140 [facility] ID Date Data Source [id number] 04/07/2020 08:19:21 AM [facility] Value Range Interpretation Code Description Data Lisa rce(s) Supporting Document(s) Glucose [Mass/volume] in Capillary blood by Glucometer 192 mg/dL 70- 140 [facility] ID Date Data Source [id number] 04/07/2020 06:25:11 AM [facility] Value Range Interpretation Code Description Data Lisa rce(s) Supporting Document(s) Leukocytes [#/volume] in Blood by Automated count 5.4 10*3/uL 4-10 [facility] Erythrocytes [#/volume] in Blood by Automated count 2.62 10*6/uL 4.6- 6.1 L [facility] Hemoglobin [Mass/volume] in Blood 8.0 g/dL 13.5-18 L [facility] Hematocrit [Volume Fraction] of Blood by Automated count 25.1 % 4 1-53 L [facility] Erythrocyte mean corpuscular volume [Entitic volume] by Auto mated count 95.6 fL 80-96 [facility] Erythrocyte mean corpuscular hemoglobin [Entitic mass] by Automated count 30.6 pg 27-33 [facility] Erythrocyte mean corpuscular hemoglobin concentration [Mass/volume] by Automated count 32.0 g/dL 32[facility]0-[facility] [Ratio] by Automated count 16.1 % 11.5-14.5 [facility] Platelets [#/volume] in Blood by Automated count 183 10*3/uL 150-400 [facility] ID Date Data Source [id number] 04/07/2020 06:38:24 AM [facility] Value Range Interpretation Code Description Data Lisa rce(s) Supporting Document(s) Magnesium [Mass/volume] in Serum or Plasma 1.7 mg/dL 1.6-2.4 [facility] ID Date Data Source [id number] 04/07/2020 06:38:24 AM [facility] Value Range Interpretation Code Description Data Lisa rce(s) Supporting Document(s) Bicarbonate [Moles/volume] in Serum 23 mmol/L 22-29 [facility] Chloride [Moles/volume] in Serum or Plasma 101 mmol/L 98-107 [facility] Creatinine [Mass/volume] in Serum or Plasma 1.16 mg/dL 0.70-1.20 [facility] Glucose [Mass/volume] in Serum or Plasma 189 mg/dL 70-140 H [facility] Potassium [Moles/volume] in Serum or Plasma 4.4 mmol/L 3.4-5.1 [facility] Sodium [Moles/volume] in Serum or Plasma 134 mmol/L 136-145 L [facility] Urea nitrogen [Mass/volume] in Serum or Plasma 20 mg/dL 8-23 [facility] Anion gap 3 in Serum or Plasma 10 mmol/L 8-15 [facility] Osmolality of Serum or Plasma by calculation 286 mosm/kg 275-300 [facility] Creatinine/Urea nitrogen [Mass Ratio] in Serum or Plasma 17 [facility] Calcium [Mass/volume] in Serum or Plasma 7.7 mg/dL 8.8-10.2 L [facility] Glomerular filtration rate/1.73 sq M pre dicted among non-blacks [Volume Rate/Area] in Serum or Plasma by Creatinine-based formula (MDRD) >6 0 [facility] Glomerular filtration rate/1.73 sq M pre dicted among blacks [Volume Rate/Area] in Serum or Plasma by Creatinine-based formula (MDRD) >60 [facility] ID Date Data Source [id number] 04/07/2020 06:38:24 AM [facility] Value Range Interpretation Code Description Data Lisa rce(s) Supporting Document(s) Phosphate [Mass/volume] in Serum or Plasma 2.3 mg/dL 2.5-4.5 L [facility] ID Date Data Source [id number] 04/06/2020 10:43:41 PM [facility] Name Value Range Interpretation Code Description Data Lisa rce(s) Supporting Document(s) Glucose [Mass/volume] in Capillary blood by Glucometer 186 mg/dL 70- 140 H [facility] ID Date Data Source [id number] [facility]52[facility] Interpretation Code Description Data Lisa rce(s) Supporting Document(s) [facility] LLMFWw7uVvRRFyPue1QdSqYwUXBiSX3vkiv7D2J0iNDhY8DxgOCxb0oqL3BlJ6OiVFPfEOETOC4YnVFp jb2 [file] SbSM6D5mGn3+1449Ox/vp customer development+MR0nQK5gQPfzvVGEndbO9/nv/60TX8n//qXXj+CdG/f//3//TPv8T/+X// 9Qf8/ffPf/8u/F//+m//41//zX/8T/4Byt62s//zX//df/xL/n4miT7/5Yx965/tuv/5n//7f7k//0j8 /fOf/jmLPv/+/fc//8u/0jUWdGnZ3NS5feGWwG0Itt gCGSDnRcAkPqPXv5RM6UtKYJvERBVP8MfLvXiRP5GK0wmUmTqII1PT3opJaRkZE1UV5npUvZrXK3JG7p xCpEcWcfFg1dBdgVi0pSizZh4swpoYm9bcx3EfPtao8RaJ0bz3p5N2Us/YbBj9mOw6Xs/YeFa2gSx6Ey /IjHi4bRb7Bl/TlIt1cRr0Bz/YcQi2rIo2gw/LkZf3 vBx5ec/DW0hPFkCqBP9TVz8gzkRiNn6JSmDoJoPZEd8JHuLxJpLOAh5BOyZBB3Ks2UuG4zncHsOh1EqJ 8ZP4IoS4cT6HUM8u5eHE0+f4PoQ0e56Dwc0aJx9lcZ0mIy/Z81rIa/G7WjLwEk+TrOyTdwYt5cUbwUc7 rOtcKp8staoLf37Fb1+e10Zeu+p9jfckfB2yoRsiO9 etchoNAtftaZEM4hgj9WF9Ajg97k/7crsx/8nZH36mi16613Aw6/Csw947v88+9y7Ge2TTur720R44+b tMS7uUEw675Ok97bvnugKZ/hLR5jZZM39TiFbznYROlpDPXwN/GmSGvM2s4tEBlntukuCNyctLtrkcUz YhVp7XHg0n/eRJWSI/aeCeLWTHqTukzxhiS6P3mV64 UgPv4oJYjIBPvaYLEKJUs7LVigZBx0euowwaJWuD2HteXWLK/VgRcNgLR2CnsTouw7nYrbP+FItQssiP ZhGKFvlRLULZIj+4VHit1Ry3IOMC/GgXoXiRH/UilC/yo1+EAkZ+FIxQwsiPhhGKGPlRMUIZI/6fPScQ /MmTUkZ+kQxLdYcQkqMRWfoHI4TGDs+TPrnj2TsWSZ WN/MsgpayPP46hCDPKa66CtEJV9esSucdlV2X3nC94StS23lGcaRKNwsHLNOAGb2lMvaq66DjPoEG/Sk jedjUH6wzZpqlgGfPfvH+3JhE93tI7wQECosGJPZWPv+tSny688I1N5QO/ykcofeRH+wjFj/ufI9W7sS /8GqGV9mBQuWDMylKSQXZVsboFvaW76DJOXHM/Skgo oxNTIraBgTzsFvJzyz27eROK+qOHlHpIf/SQUg/pbg4B4aG60DCQClL/ekiph/HDJxq6hM1mUuTa1o39 pNRD+qOHlHpIf/SQUg/fsv2J7vI31WIQBbQ/ekiph/BNTdb1dU7aCqSv0r4/kru9of0Ad4u+M4+mmTQ/ xTwl1eckuNvRi9PViCrft5mGXn7oCeJtveGTOw/pjx 8M0jD12PAXWaX/ekiph/XRMug6iI5hXvOp8m94bODM+qOHlHpIf/SQUg/cnz8J5oW30VMSDmM/ekiph/ WYNim4lD7jZtMh9a67bWSZ+qOHlHpIf/SQUg/gan4G7kR92TTSVaD/ekiph/VEXuv2zR6rMjXm0n87kX RD+qOHlHpIf/SQUg/vyd2B8uT16CAZXaA/ekiph/RH Vsd3vK7yFwCx9z57wKGN+qOHlHpIf/SQUg/vbt5V7cI06WP0iMLQ+tXhCHXVFNwOStI3op8hob+iRJTI LNTPIIWf7aGtQDOB3hRGI7vOYf6mLeA8QWZvsT2mMgR8CHAcuP5lTiY4WDYnxU3aQnM3SFLwoK6yMbP7 rXkZ4cYaW5sHlQ5wF0V+xnyM+RjzMeZjzMeYjzEfYz 5RkHj6BYJe4pQMm6tXNq0aGq79pIa171jEfhGcLs4AkYx1WWCR4rYEL4tSWM7kYeZ9nigM3mkwF5sroK 8wn2A+wXyC+QnrF4jAFC7R+UmxU7oBEW5F+BdtR2zHAA8G+PmpS2iZIZ2B+Mrjy6fNFp7L+Ebtx5zZMv 6L+Kxrq3uOTq4M+Ttfo1gYTs1I+Qsym5xPGa6n+Wzm w6dVWc4o+Tixy2wZBa2r+Cdpn8kYSd9l+aTN/L01PU/HnUWunXVn0OWvmRBKQ+DEq2rJl87er4Bkkznd 1Hi982kfVe4/uwcEc52gbaVaq0zdnFyu4LwvY1r3faoOnMUSI731nGwI4NW2LEBQJAaPWTE7oRPBMW9T KOAM5oDQSNIsSLgLtqWSeSO8SCEGKNjRJ6S8jYMYRH 6GZBFY1kAJQGPvJWTSoyBZbKC3KAZPMXdTMnC0dZBbPO0pFTUW8pPBGOPpYNWVhgoGBQV1tJRJIMoAIi [file] YsVvA7PMy2TqWdDX3C ID Date Data Source [id number] 04/06/2020 05:37:25 PM EDT [facility] Name Value Range Interpretation Code Description Data Lisa rce(s) Supporting Document(s) Glucose [Mass/volume] in Capillary blood by Glucometer 193 mg/dL 70- 140 H [facility] ID Date Data Source [id number] [facility] Interpretation Code Description Data Lisa rce(s) Supporting Document(s) Glucose [Mass/volume] in Capillary blood by Glucometer 185 mg/dL 70- 140 H [facility] ID Date Data Source [id number] 04/06/2020 12:29:31 PM [facility] Name Value Range Interpretation Code Description Data Lisa rce(s) Supporting Document(s) Troponin T.cardiac [Mass/volume] in Serum or Plasma 0.06 ng/mL <0.01 H [facility] ID Date Data Source [id number] 04/06/2020 08:14:33 AM [facility] Value Range Interpretation Code Description Data Lisa rce(s) Supporting Document(s) Glucose [Mass/volume] in Capillary blood by Glucometer 145 mg/dL 70- 140 H [facility] ID Date Data Source [id number] 04/06/2020 06:44:32 AM [facility] Value Range Interpretation Code Description Data Lisa rce(s) Supporting Document(s) Leukocytes [#/volume] in Blood by Automated count 5.2 10*3/uL 4-10 [facility] Erythrocytes [#/volume] in Blood by Automated count 2.70 10*6/uL 4.6- 6.1 L [facility] Hemoglobin [Mass/volume] in Blood 8.5 g/dL 13.5-18 L [facility] Hematocrit [Volume Fraction] of Blood by Automated count 25.7 % 4 1-53 [facility] Erythrocyte mean corpuscular volume [Entitic volume] by Auto mated count 95.4 fL 80-96 [facility] Erythrocyte mean corpuscular hemoglobin [Entitic mass] by Automated count 31.3 pg 27-33 [facility] Erythrocyte mean corpuscular hemoglobin concentration [Mass/volume] by Automated count 32.9 g/dL 32.0-[facility] width [Ratio] by Automated count 16.3 % 11.5-14.5 H [facility] Platelets [#/volume] in Blood by Automated count 187 10*3/uL 150-400 [facility] ID Date Data Source [id number] 04/06/2020 07:07:47 AM [facility] Value Range Interpretation Code Description Data Lisa rce(s) Supporting Document(s) Bicarbonate [Moles/volume] in Serum 24 mmol/L 22-29 [facility] Chloride [Moles/volume] in Serum or Plasma 102 mmol/L 98-107 [facility] Creatinine [Mass/volume] in Serum or Plasma 1.00 mg/dL 0.70-1.20 [facility] Glucose [Mass/volume] in Serum or Plasma 161 mg/dL 70-140 H [facility] Potassium [Moles/volume] in Serum or Plasma 4.4 mmol/L 3.4-5.1 [facility] Sodium [Moles/volume] in Serum or Plasma 136 mmol/L 136-145 [facility] Urea nitrogen [Mass/volume] in Serum or Plasma 17 mg/dL 8-23 [facility] Anion gap 3 in Serum or Plasma 10 mmol/L 8-15 [facility] Osmolality of Serum or Plasma by calculation 287 mosm/kg 275-300 [facility] Creatinine/Urea nitrogen [Mass Ratio] in Serum or Plasma 17 [facility] Calcium [Mass/volume] in Serum or Plasma 7.7 mg/dL 8.8-10.2 L [facility] Glomerular filtration rate/1.73 sq M pre dicted among non-blacks [Volume Rate/Area] in Serum or Plasma by Creatinine-based formula (MDRD) >6 0 [facility] Glomerular filtration rate/1.73 sq M pre dicted among blacks [Volume Rate/Area] in Serum or Plasma by Creatinine-based formula (MDRD) >60 [facility] ID Date Data Source [id number] 04/06/2020 07:07:47 AM [facility] Value Range Interpretation Code Description Data Lisa rce(s) Supporting Document(s) Magnesium [Mass/volume] in Serum or Plasma 1.6 mg/dL 1.6-2.4 [facility] ID Date Data Source [id number] 04/06/2020 07:07:47 AM [facility] Value Range Interpretation Code Description Data Lisa rce(s) Supporting Document(s) Phosphate [Mass/volume] in Serum or Plasma 2.7 mg/dL 2.5-4.5 [facility] ID Date Data Source [id number] 04/06/2020 01:19:57 AM [facility] Value Range Interpretation Code Description Data Lisa rce(s) Supporting Document(s) Troponin T.cardiac [Mass/volume] in Serum or Plasma 0.04 ng/mL <0.01 H [facility] ID Date Data Source [id number] [facility] Code Description Data Lisa rce(s) Supporting Document(s) Glucose [Mass/volume] in Capillary blood by Glucometer 210 mg/dL 70- 140 H [facility] ID Date Data Source [id number] 04/05/2020 06:27:19 PM [facility] Name Value Range Interpretation Code Description Data Lisa rce(s) Supporting Document(s) Glucose [Mass/volume] in Capillary blood by Glucometer 233 mg/dL 70- 140 H [facility] ID Date Data Source [id number] 04/05/2020 06:56:15 PM [facility] Name Value Range Interpretation Code Description Data Lisa rce(s) Supporting Document(s) Troponin T.cardiac [Mass/volume] in Serum or Plasma 0.03 ng/mL <0.01 H [facility] ID Date Data Source [id number] 04/05/2020 04:26:54 PM [facility] Value Range Interpretation Code Description Data Lisa rce(s) Supporting Document(s) Operative Note [facility] [id number] lbm [file] == ID Date Data Source [id number] 04/05/2020 01:33:05 PM EDT [facility] Name Value Range Interpretation Code Description Data Lisa rce(s) Supporting Document(s) pH of Arterial blood 7.35 7.38-7.44 L [facility] Carbon dioxide [Partial pressure] in Arterial blood 44 mmHg 35-40 H [facility] Oxygen [Partial pressure] in Arterial blood 200 mmHg 95-100 H [facility] Base excess standard in Arterial blood by calculation [facility] Oxygen saturation Calculated from oxygen partial press ure in Arterial blood 100 % 94-100 [facility] Bicarbonate [Moles/volume] in Arterial blood 26 mmol/L [facility] Sodium [Moles/volume] in Blood 136 mmol/L 136-145 [facility] Potassium [Moles/volume] in Blood 4.7 mmol/L 3.4-5.1 [facility] Calcium.ionized [Moles/volume] in Blood 1.15 mmol/L 1.13-1.32 [facility] Glucose [Mass/volume] in Blood 222 mg/dL 70-140 H [facility] Hematocrit [Volume Fraction] of Blood 29 % 41-53 L [facility] Hemoglobin [Mass/volume] in Blood by calculation 9.9 g/dL 13.5-18.0 [facility] ID Date Data Source [id number] 04/05/2020 01:33:05 PM [facility] Value Range Interpretation Code Description Data Lisa rce(s) Supporting Document(s) Kaolin activated time [Units/volume] in Blood 197 s [facility] ID Date Data Source [id number] 04/05/2020 01:07:04 PM [facility] Value Range Interpretation Code Description Data Lisa rce(s) Supporting Document(s) Kaolin activated time [Units/volume] in Blood 197 s [facility] ID Date Data Source [id number] 04/05/2020 07:49:19 AM [facility] Value Range Interpretation Code Description Data Lisa rce(s) Supporting Document(s) Glucose [Mass/volume] in Capillary blood by Glucometer 164 mg/dL 70- 140 H [facility] ID Date Data Source [id number] 04/05/2020 03:08:47 AM [facility] Value Range Interpretation Code Description Data Lisa rce(s) Supporting Document(s) Leukocytes [#/volume] in Blood by Automated count 6.4 10*3/uL 4-10 [facility] Erythrocytes [#/volume] in Blood by Automated count 3.25 10*6/uL 4.6- 6.1 [facility] Hemoglobin [Mass/volume] in Blood 10.0 g/dL 13.5-18 [facility] Hematocrit [Volume Fraction] of Blood by Automated count 31.0 % 4 1-53 L [facility] Erythrocyte mean corpuscular volume [Entitic volume] by Auto mated count 95.2 fL 80-96 [facility] Erythrocyte mean corpuscular hemoglobin [Entitic mass] by Automated count 30.9 pg 27-33 [facility] Erythrocyte mean corpuscular hemoglobin concentration [Mass/volume] by Automated count 32.4 g/dL 32.0-36.0 [facility] width [Ratio] by Automated count 16.1 % 11.5-14.5 H [facility] Platelets [#/volume] in Blood by Automated count 224 10*3/uL 150-400 [facility] Differential cell count method - Blood [facility] Neutrophils/100 leukocytes in Blood by Automated count 65 % [facility] Lymphocytes/100 leukocytes in Blood by Automated count 21 % [facility] Monocytes/100 leukocytes in Blood by Automated count 12 % [facility] Eosinophils/100 leukocytes in Blood by Automated count 2 % [facility] Basophils/100 leukocytes in Blood by Automated count 0 % [facility] Neutrophils [#/volume] in Blood by Automated count 4.13 10*3/uL 1.8-7 .0 [facility] Lymphocytes [#/volume] in Blood by Automated count 1.33 10*3/uL 1.2-4 .0 [facility] Monocytes [#/volume] in Blood by Automated count 0.79 10*3/uL 0-0.8 [facility] Eosinophils [#/volume] in Blood by Automated count 0.15 10*3/uL 0-0.5 [facility] Basophils [#/volume] in Blood by Automated count 0.02 10*3/uL 0-0.2 [facility] Nucleated erythrocytes/100 leukocytes [Ratio] in Blood by Automated count 0 /100{WBCs} 0-0 [facility] ID Date Data Source [id number] 04/05/2020 03:35:00 AM EDT [facility] Name Value Range Interpretation Code Description Data Lisa rce(s) Supporting Document(s) Bicarbonate [Moles/volume] in Serum 23 mmol/L 22-29 [facility] Chloride [Moles/volume] in Serum or Plasma 100 mmol/L 98-107 [facility] Creatinine [Mass/volume] in Serum or Plasma 1.21 mg/dL 0.70-1.20 H [facility] Glucose [Mass/volume] in Serum or Plasma 167 mg/dL 70-140 H [facility] Potassium [Moles/volume] in Serum or Plasma 4.7 mmol/L 3.4-5.1 [facility] Sodium [Moles/volume] in Serum or Plasma 137 mmol/L 136-145 [facility] Urea nitrogen [Mass/volume] in Serum or Plasma 24 mg/dL 8-23 H [facility] Anion gap 3 in Serum or Plasma 14 mmol/L 8-15 [facility] Osmolality of Serum or Plasma by calculation 291 mosm/kg 275-300 [facility] Creatinine/Urea nitrogen [Mass Ratio] in Serum or Plasma 20 [facility] Calcium [Mass/volume] in Serum or Plasma 8.8 mg/dL 8.8-10.2 [facility] Glomerular filtration rate/1.73 sq M pre dicted among non-blacks [Volume Rate/Area] in Serum or Plasma by Creatinine-based formula (MDRD) >6 0 [facility] Glomerular filtration rate/1.73 sq M pre dicted among blacks [Volume Rate/Area] in Serum or Plasma by Creatinine-based formula (MDRD) >60 [facility] ID Date Data Source [id number] 04/05/2020 03:35:00 AM [facility] Value Range Interpretation Code Description Data Lisa rce(s) Supporting Document(s) Magnesium [Mass/volume] in Serum or Plasma 1.8 mg/dL 1.6-2.4 [facility] ID Date Data Source [id number] 04/05/2020 03:35:00 AM [facility] Value Range Interpretation Code Description Data Lisa rce(s) Supporting Document(s) Phosphate [Mass/volume] in Serum or Plasma 3.2 mg/dL 2.5-4.5 [facility] ID Date Data Source [id number] 04/04/2020 08:47:27 PM [facility] Value Range Interpretation Code Description Data Lisa rce(s) Supporting Document(s) Glucose [Mass/volume] in Capillary blood by Glucometer 215 mg/dL 70- 140 H [facility] ID Date Data Source [id number] 04/04/2020 05:25:05 PM [facility] Value Range Interpretation Code Description Data Lisa rce(s) Supporting Document(s) Glucose [Mass/volume] in Capillary blood by Glucometer 133 mg/dL 70- 140 [facility] ID Date Data Source [id number] 04/04/2020 02:55:39 PM EDT [facility] Name Value Range Interpretation Code Description Data Lisa e(s) Supporting Document(s) Consultation [facility] [id number] lbm [file] ICAgICAgICAgICAgICAgICAgICAgICAgICAgICAgIC CrNWSzWOUiPFNaZHJwNTTxWPQsYPFgALJqDVNgMLZhZAMfQAWjZHXkXXGkZXHqDSCrGBYdYI9ITCEwRC AgICAgICAgICAgICAgICAgICAgICAgICAgICAgICAgICAgICAgICAgICAgICAgICAgICAgICAgICAgIC AgICAgICAgICAgICAgICAgICAgICAgICAgICAgICAg QVPuCG2GGGQpKICqRCGaDSZnXVJzQMVwMXQcVEAbUTDnIZJoEIGbWKNsIOWmSEErLZUhCGXmLKRnXFVa UICnFTSvBKPmMSCcRZJwJNHkUDEcWDReJWAyAIUsGOJaPQOhYTKiXMIcBBOhRW6VLYXsEIKcTCJhXGPl ICAgICAgICAgICAgICAgICAgICAgICAgICAgICAgIC MsVDZrHTRnNZHbNTLhDDJqIKCkATZiXZTiRJWzOZHzIBGoNDCqHSKfKGVjHUNpZWZbJDUkJGMdLE3ITX AgICAgICAgICAgICAgICAgICAgICAgICAgICAgICAgICAgICAgICAgICAgICAgICAgICAgICAgICAgIC AgICAgICAgICAgICAgICAgICAgICAgICAgICAgICAg KMDsLDNrIN3LIOMiNPInRMGxBFThCYBwVEKkCIXpEIIpZHXbKCLyVXFrYEKdUKVyTMKrDJFhKQCcJZJf QRZkNLZhPCMmLYRtKFYxEHDyUYQyEXJaKGLjPMAuFXIeWGRfHFXnWEYzESLfHQLtBX9PMKJoCPXbBERn ICAgICAgICAgICAgICAgICAgICAgICAgICAgICAgIC AgICAgICAgICAgICAgICAgICAgICAgICAgICAgICAgICAgICAgICAgICAgICAgICAgICAgICAgICAgIA 0KICAgICAgICAgICAgICAgICAgICAgICAgICAgICAgICAgICAgICAgICAgICAgICAgICAgICAgICAgIC AgICAgICAgICAgICAgICAgICAgICAgICAgICAgICAg DRQxOIEvCGReFF9OMOOpCZAzMVWhDGOvUDZzYENyYOIaBHEgGDCbPZSkPLOhBEGiFCKqFAJdGYIjAXZk BWNbIYMsYWZeQJRcIIXfQIAiEOUcGQUqKXQiGKYjYUEaBUWkLWUeJRQoODHbXUHvIRQoFI3WFN42xUDm j9J6MAViDM0bgoo/Jm4KTSihdjWrkYTwZU2OZmGkJW 7zwr1FFgBeEI4rqs6KEUsMJbZbV2L8dYSyCBHeZKWAFgRmK44hMZkuBi48CCliYIEaGnDpGDp4Lr9WCe RwM2ucHRByYlQ0GJRyCfK8EEHpOlG7YRWeAnCzNXEoDPSdNYJlZJHCXYD6PTOpMrXoDdQzHXLvZUstNA SIXI8BRoYeC5SadO87NTyFBi0+DQplbmRvYmoNCjM2 UKFfi6UgSWf4FM9WAOMgGzhjx9SwCehoKLPRCPcuPV2SQYX1PLV2MNKiUh1YGLJpV862ziQqMH1FVp2G LwIqDF2hjo5KXsmeBQRtZbhXWby0TSsyUO0UgOGwAYePx58ktFe8bmRemKICbABfzxifybTRecodQEJD DdINOFC1LTGsXHNwObBnJFVhDjzjFqEALVkTDcOxV7 Fhc4GjDhF6UWQrGkVxNUipWLMwNkJ2EW13rIaiHY5TJUSdGZClOW92UVP3FQDfMw1AGz1EQoKbFT3lbn 5GAijiMXGjWwzQMkt1DOizWQ2QpFJnS0JajZTfb1gTLvOfP0OXKYG7VZOmUe7HDXLaZwVbPNKaSBbhRT 6xZFKhAUVHfCbgvmH7IN1QFW4tssWvOT0XEmSgWf5k Xs9HYbLvG9UfL6ZnEEBfXMESWNbjIV8IDUlkAQ0kAV8Fo6BXjHZpnY9fua5OTXZgALPcWeofjq6OZwhi T3P4eTfoYNLwVjLjIEJYUNojYH7XPPHhWEO7FQDoDSBfUGCVJrSoG16eOH6YC5Xtx47xLkD3XAPgEgEw QKecYB18kDedvbWciENwqRqvWV6DYn3+DQplbmRvYm tNScnxVZCCZhWaVyvHHaMgXHUtOVCnWBWjUyU8XsIxMn6TGRQgZBNkGWPgXmThECZgYUNwKCzeZDPpUK T5XZfuQLCwHMTpDH8RDgFqRPRyCYD1WJecVJXbUFFlwu1MAEVjWUHrVSU3ZbPbKQPuVIMxUCifWWVnDF AiXua8ERMiETBiTI5SAjCkYAWyVWM5HQGpMILxTFMg da7NXKFzNUFgZiSaVXXzHZLbJKBjTJshRKMoNOU8EFM5BBHvJKKmQZ3ACeNkCJPhLQX3QELxJLDkZLCo se2RJQNnNILmAZhtCBBgFTZtENBqVZozDWTgKAT9SDFlYVShSTGwDM8EKaLlRNVsSMEiCuzjMFMiBDFh yx1URAXfBKPlBcl3IbHoHPKpTABfXZdvOKImLNY8XW Z9UDFtREUjJS8ADzEuBSNxRCmoNnOpCCYaTADxuh5ZKVQtWBNoXUZzQCCxOUOuCPPuACrgFVQdSZZkIM M3YQWqGPMdUS2VRcCkZDZwTgVwRaYdSYYtQYUgmr3HIQVkYLBdUBP3NEJaNUBqRAElYVqwOWHcKQA1Zs geLZGcJGKuQK9HSiRvBKTcFvG4VhXqLQZfDLGddn0I RVCiDGTwXrhkLdMnHVQcOFPpZKwnTEDfDUD3VJJsLFWfQMIrYV7TVxOmZAXgVys1SxhnGPKoCAQdsz3N WBAvESAgYJZ7YQLuIZFuSSUhGNbsXYLsAPK9McK7PZWtYOAqDW6ANeLrJEYdXIXtRiDlAYKdBYLata2C AZAnYOY1Zie8YDPvTRWfAILaJBwiIEOhYAKhLMo4RT CgPABsDS3HNmBdHYKsDJX2COChDENqOSLqkc2UAANoCNI6Itn2PTIeUWFsRXDiQWtqCDCaEZN5Iki8YT VyZZWiTL5GWjMfZEIaWRY4UcwiPLWkDFKoiq6YJZWnNZN3KXJ3KSSpGUOlXACxNBigDNQpRZK7HGs6TC FeXKPxSH7GFyKwRYBmDZE9LgQrTWWpRSKfjo3THHZg GPJ3BjPlPgUyQDYmAVGmLEncCWEoUSY8RUo6NXDdOCRpBP3RWpWjOGbaCEGNIcj5VGqwY2j3AFItOP1O Q7Lmx5HzBggvZYGEIMuoMC2hghVmFSDmLv1FM2aFIbyhIcL8ETHlWsJxUprkPKZnURZ2IOyoYAXrZmUv MXXrDO7rRPT3TfEaWRUcAEGpMxP6Z5AmIeecYSRyKP KuIYMfDVTqKkPjAH0YVs4GPyB5OEI8nJIgNo8TLEh1TxVAKgXfXL0OQMp= ID Date Data Source [id number] 04/06/2020 06:54:50 AM EDT [facility] Value Range Interpretation Code Description Data Lisa rce(s) Supporting Document(s) ABO and Rh group [Type] in Blood [facility] Blood group antibody screen [Presence] in Serum or Plasma [facility] 04/07/2020,0000[facility] @ 1525 ID Date Data Source [id number] 04/04/2020 11:55:23 AM EDT [facility] Value Range Interpretation Code Description Data Lisa rce(s) Supporting Document(s) Glucose [Mass/volume] in Capillary blood by Glucometer 186 mg/dL 70- 140 H [facility] ID Date Data Source [id number] 04/04/2020 07:48:48 AM EDT [facility] Value Range Interpretation Code Description Data Lisa rce(s) Supporting Document(s) Glucose [Mass/volume] in Capillary blood by Glucometer 155 mg/dL 70- 140 H [facility] ID Date Data Source [id number] 04/04/2020 02:47:04 PM EDT [facility] Value Range Interpretation Code Description Data Lisa rce(s) Supporting Document(s) ABO and Rh group [Type] in Blood [facility] Blood bank comment [facility] ID Date Data Source [id number] 04/04/2020 03:56:34 AM EDT [facility] Name Value Range Interpretation Code Description Data Lisa rce(s) Supporting Document(s) Leukocytes [#/volume] in Blood by Automated count 6.7 10*3/uL 4-10 [facility] Erythrocytes [#/volume] in Blood by Automated count 3.22 10*6/uL 4.6- 6.1 L [facility] Hemoglobin [Mass/volume] in Blood 10.0 g/dL 13.5-18 L [facility] Hematocrit [Volume Fraction] of Blood by Automated count 30.5 % 4 1-53 L [facility] Erythrocyte mean corpuscular volume [Entitic volume] by Auto mated count 94.6 fL 80-96 [facility] Erythrocyte mean corpuscular hemoglobin [Entitic mass] by Automated count 31.1 pg 27-33 [facility] Erythrocyte mean corpuscular hemoglobin concentration [Mass/volume] by Automated count 32.8 g/dL 32.0-36.0 [facility] width [Ratio] by Automated count 16.0 % 11.5-14.5 H [facility] Platelets [#/volume] in Blood by Automated count 214 10*3/uL 150-400 [facility] Differential cell count method - Blood [facility] Neutrophils/100 leukocytes in Blood by Automated count 66 % [facility] Lymphocytes/100 leukocytes in Blood by Automated count 22 % [facility] Monocytes/100 leukocytes in Blood by Automated count 9 % [facility] Eosinophils/100 leukocytes in Blood by Automated count 3 % [facility] Basophils/100 leukocytes in Blood by Automated count 0 % [facility] Neutrophils [#/volume] in Blood by Automated count 4.42 10*3/uL 1.8-7 .0 [facility] Lymphocytes [#/volume] in Blood by Automated count 1.45 10*3/uL 1.2-4 .0 [facility] Monocytes [#/volume] in Blood by Automated count 0.60 10*3/uL 0-0.8 [facility] Eosinophils [#/volume] in Blood by Automated count 0.20 10*3/uL 0-0.5 [facility] Basophils [#/volume] in Blood by Automated count 0.03 10*3/uL 0-0.2 [facility] Nucleated erythrocytes/100 leukocytes [Ratio] in Blood by Automated count 0 /100{WBCs} 0-0 [facility] ID Date Data Source [id number] 04/04/2020 04:12:30 AM [facility] Name Value Range Interpretation Code Description Data Lisa rce(s) Supporting Document(s) Bicarbonate [Moles/volume] in Serum 25 mmol/L 22-29 [facility] Chloride [Moles/volume] in Serum or Plasma 105 mmol/L 98-107 [facility] Creatinine [Mass/volume] in Serum or Plasma 1.06 mg/dL 0.70-1.20 [facility] Glucose [Mass/volume] in Serum or Plasma 140 mg/dL 70-140 [facility] Potassium [Moles/volume] in Serum or Plasma 4.6 mmol/L 3.4-5.1 [facility] Sodium [Moles/volume] in Serum or Plasma 138 mmol/L 136-145 [facility] Urea nitrogen [Mass/volume] in Serum or Plasma 20 mg/dL 8-23 [facility] Anion gap 3 in Serum or Plasma 9 mmol/L 8-15 [facility] Osmolality of Serum or Plasma by calculation 291 mosm/kg 275-300 [facility] Creatinine/Urea nitrogen [Mass Ratio] in Serum or Plasma 19 [facility] Calcium [Mass/volume] in Serum or Plasma 8.7 mg/dL 8.8-10.2 L [facility] Glomerular filtration rate/1.73 sq M pre dicted among non-blacks [Volume Rate/Area] in Serum or Plasma by Creatinine-based formula (MDRD) >6 0 [facility] Glomerular filtration rate/1.73 sq M pre dicted among blacks [Volume Rate/Area] in Serum or Plasma by Creatinine-based formula (MDRD) >60 [facility] ID Date Data Source [id number] 04/04/2020 04:12:30 AM [facility] Value Range Interpretation Code Description Data Lisa rce(s) Supporting Document(s) Magnesium [Mass/volume] in Serum or Plasma 1.9 mg/dL 1.6-2.4 [facility] ID Date Data Source [id number] 04/04/2020 04:12:30 AM EDT [facility] Name Value Range Interpretation Code Description Data Lisa rce(s) Supporting Document(s) Phosphate [Mass/volume] in Serum or Plasma 3.1 mg/dL 2.5-4.5 [facility] ID Date Data Source [id number] 04/03/2020 10:04:14 PM EDT [facility] Name Value Range Interpretation Code Description Data Lisa rce(s) Supporting Document(s) Consultation [facility] [id number]/XNAioWFEyj7AnULqoGKv6DQhoETUbF2WhWVG1zP5pKEX9TLtBIyHnIpDjAkQ4 lbm [file] [employer]+MnUAWOEF3fJm4hIlZVmWSRsQc4xHj5wpthauOlW [file] Rental Agent+X4UUUn08mMZlVui5tDax0Aw9jUflb0LjHciMXgW [file] AgICAgICAgICAgICAgICAgICAgICAgICAgICAgICAg ICAgICAgICAgICAgICAgICAgICAgICAgICAgICAgICAgICAgICAgICAgDQogICAgICAgICAgICAgICAg ICAgICAgICAgICAgICAgICAgICAgICAgICAgICAgICAgICAgICAgICAgICAgICAgICAgICAgICAgICAg ICAgICAgICAgICAgICAgICAgICAgICAgDQogICAgIC AgICAgICAgICAgICAgICAgICAgICAgICAgICAgICAgICAgICAgICAgICAgICAgICAgICAgICAgICAgIC AgICAgICAgICAgICAgICAgICAgICAgICAgICAgICAgICAgDQogICAgICAgICAgICAgICAgICAgICAgIC AgICAgICAgICAgICAgICAgICAgICAgICAgICAgICAg ICAgICAgICAgICAgICAgICAgICAgICAgICAgICAgICAgICAgICAgICAgICAgDQogICAgICAgICAgICAg ICAgICAgICAgICAgICAgICAgICAgICAgICAgICAgICAgICAgICAgICAgICAgICAgICAgICAgICAgICAg ICAgICAgICAgICAgICAgICAgICAgICAgICAgDQogIC AgICAgICAgICAgICAgICAgICAgICAgICAgICAgICAgICAgICAgICAgICAgICAgICAgICAgICAgICAgIC AgICAgICAgICAgICAgICAgICAgICAgICAgICAgICAgICAgICAgDQogICAgICAgICAgICAgICAgICAgIC AgICAgICAgICAgICAgICAgICAgICAgICAgICAgICAg ICAgICAgICAgICAgICAgICAgICAgICAgICAgICAgICAgICAgICAgICAgICAgICAgDQogICAgICAgICAg ICAgICAgICAgICAgICAgICAgICAgICAgICAgICAgICAgICAgICAgICAgICAgICAgICAgICAgICAgICAg ICAgICAgICAgICAgICAgICAgICAgICAgICAgICAgDQ ogICAgICAgICAgICAgICAgICAgICAgICAgICAgICAgICAgICAgICAgICAgICAgICAgICAgICAgICAgIC AgICAgICAgICAgICAgICAgICAgICAgICAgICAgICAgICAgICAgICAgDQogICAgICAgICAgICAgICAgIC AgICAgICAgICAgICAgICAgICAgICAgICAgICAgICAg QSUnCFWzZDPsDSTpBBFaSGCpWNVyFEVrANGkIKSuAWYgUOMjBCRrIXFiXDQmSJKuOBElZBn7D6ysLGCg GLXjGR5nFWs0Fc9+WRnEZvLqFSZ6yhQlhN6FEF0ql3GaFJgiTUCyl5RkVZx8ZC6DYTZmKXzrWK3IIDpa on5GRYFfMXGdgVGAr6hxEoJaRVN4PXZjSryjFK4WIF MrK0iakmXaPXIwQDPWLTvdELHJECvpGVVKEHHiSPXqXtMhEpJhANPyDFHhLWHZWZ1DGcCqH8BivW44PK YNCj4+EEyuvqIgEtaIPbO1NJTee0KcDJv8LR9YZXBlTjppt8CqXESsMTYLUTimKO0NLAM8MMR6HJZeCt 7TCRPiP484fpRkBW3MEe1CXzOjZI7gtc4BOJAiOIYi OsoBEfa8LMijPE0LaWYmFLnWv95erMh0zqDbrZLExdIaJD0pCVIoKwmeWHFNNjLraAP6YaX5GnDcSdJl XPy3NXDdTQ2lPYttDU5HEXR5CCciCKNtRRIfZ8pTBmJcCIEpDgJagZcjAV5LFiThH8AczrDdbJF9WZKk IFINCj4+BXmnbvNmKiiASnZ4KLAoa4EiMUg4IP7SQS ZzNQyjHJ8DJRWnjS0kDGvgBB3GFqN4WrLaOWPVTfGeJ71uhVQfLMr4E5KgHmLvVCEjUeypCFRlCWylNq FtZXMgWyBdDQogID4+ID4+QHbeYS2WZQmvqfZwFXHsOn3WUXMmNPZxSQ8iLIKwFFOjT5N0mKooVHPDTk OaI3aibazeAH2qDENqS905qIluicXsDHM5QOWyHq8G AEGrXYY8EHDlrKXdHCNtQRHZZTktTI3OgXIsORN5jD5zFPjbLYDlYBPbM9wQYhKggNfuAT20hNaubyIn bCBdDQo+La9HLX2ye0InEKs7ilCiMEvfYZB5JHvxYHFeRHHsUUGiQLU6WMW5ZACLMtYzWGEgQXErFJsx ENOfWUHcgp9UVHTmYNDvBZTxJJSdXWLcZOZjHKtyRM WqUlW9NHD8JPYzZNHfCF3UQzDiSTXnMUQhLNpzQXGuCCUica4MIBWfVPFaLDB4PYSgKBXfJYUpXLsnUA WrUDG6Xpy3LBCaTYGhPY0QWjDkOTXpTSh8CxVpHRBwVOMxhy5CGWWzGXYyOvsfUlXmVZHbGIKnCVlxMA GcNWEpWVJcPTGvDIVeWC2ZItPkGORmLPSpIQnfQNUs GRGnil2CDPMxANBnFtXqFJDtSTWyLSEiGMegPVCjBQGkLyL5CLCtRDRfDV4WWeTcHFAyHCC0ZCHkRIIr GSLcmk6HBVYpZGJwUGVtFoKqJNKvINJyEMscZPTpQWA3PZV7BFXxEYXsTH1TDuXnFFBmQOpjFjAlYBXu XSTldw3SPYUmFVQuXEE9SVQqNKTxNKHpXOkaRYXuZW G9RNiqWYLsOOFrPN6UGiQmTNJdSCj6OfCsYTGcZAVwly0PLXPbSFOnKXBdQYXoJCJoKADcVElfEFByPA GpAOU3STAoVJVnNV8GDaCdBMLcDwZuWzSuMAWeVCZoqu3NYODeHEEbVMw7XOJrQENoOVTzQMrgWQFqRH LdYKd6EPHnIVWjSG8JUoEcGWExYyQzLmntAHYpISVc ca9EKXQiRVI1SMC3QVReIVCrMUWwUIomWXLxLAVkNZC9JRUxRQLkBS1LJsEoLOBqNLHcCxAnRPVhZFNl ty7DZOWcOPF1OZrlXmCrWTObHAOdWOxsDEGfKOEsPYo7BQQgRZOcSD8ZLwRoLGUyIFIrLgIwFYKePAJp yp2QDQHvBWI6OcRiVDNiDHDqDADwSJpqABBuYMDpDl k3TFQlFIHsDO7YXdYaZBEtYXtjVJKbNLSvFAIcff0LFAIoRXW5WsM7LbNtWVPrWWCvRJvmICSnPGX0Pm p7RJOiCAMnMP9BPdAfUDKsDDrmUqJwHDCfWJKukw3HPDMiXIH3NLU8BNJvWHGyCADwUPklKJUaEKK7Vd O3UNVhSXBdTW0BUdXfGLToMyR1DPmtCNGtWIYsjo5G EZSbHWQ3PeDqTSPoVXSsWCBmYMtcUJWzWdA0JQybEAAdQFGgGF6XBzUaMNQvCZKmBSwpTPMtASIrpc0I OBLkRNBaZeV4PPEzNHVwMOReHIogSYEkJrS8FyU7IFZpKKMjSH9MKjDtDNTrNNL4UZMqPBYeGMNooc2F vPMffBsoap5LSKpPCl9ItBuqMSZ6VKmmCi1koHA4Nb UfNVHVXe7FvxGaAUXyWWBYDPflFPRfWHG3G9PbTuDtSdC1EECiLNBdYQE2RPBjTVW1AEA2YPBeMaO2Kb IiAjSyLpHvWgi8FDB5GRSmQJycKKZ9MYE5BwszVRL+CT1lKZk+Cx3To3ZdbzY1uoFzFJnlXCcdNtIVJf QhIA0FSVv= ID Date Data Source [id number] [facility] Interpretation Code Description Data Lisa rce(s) Supporting Document(s) Glucose [Mass/volume] in Capillary blood by Glucometer 177 mg/dL 70- 140 [facility] ID Date Data Source [id number] [facility] Code Description Data Lisa rce(s) Supporting Document(s) Glucose [Mass/volume] in Capillary blood by Glucometer 122 mg/dL 70- 140 [facility] ID Date Data Source [id number] [facility] Interpretation Code Description Data Lisa rce(s) Supporting Document(s) ED Provider Note [facility] TGSIYw9vBxITHiBc48/LAMhwBXJxq4OzHElhRSu3OEyvUXRrE7TbRTT2rP4zNDL0IOaUNaLwSuLiPfA1 lbm [file] HzHZYdVUEavMNqSTh5Q77ycIRcFUalTC4ZGRX+Chintan+Ma8FRMMoDDVnFMEhSrHlYGBNSdRzW7QqS6YKb5 XfX4FzGN69cJendnJgBEcnYM6GIO1uTPHqILUOGX7JlCMjlF3mzeZ3AJJrAHYRQoCbM76laWXyTSKgBA R4WAKdDw8NGOHdA6MlkxApuBnnutHzRONqBXAXVA7L GIukcvXtyBUhqQqlQS40iFegDV1IMx6MSeCzSE5pnd4EdAYvPp6SKDR9HG0MUBZpYHZbJCOcXLX8LGOq NpTpCGqaGJQiNCIkCCU5KKJbZLBwOE5SMmSnVEZkEKfjTsirSDFbCQSjnx5NUOVeGCB1TGIaWNSmBXHl NTJcIAdkUGAnWORwWZJ7HCUlXHHcKP4JJeCaLVCrJA V1EoikOYNwLSYnpk1JCPFsAEDeIgZ9KJVhTPCoIRKnQYljICZpIGJ8AwWfJWHjSCWmSJ1CJqFvEQRnZG Z9BDfgQDRoVWGdkv1GMBCzKYLnKMR0MDJrJRDgQKKfXJomXHNeVTD0Kob3ISGpEZHbBS1CRjHtGYKcCO NzONUsZVNqUJIqfy2IYUPkBXIeKKQoSnBePVWgUFXl UUwcCAAqFCW7UCihSVQaYUDmFS8RNgXgGSJiSKQ1PKrrILYeICKdvw4MPZWbUDMiRwO4LNLgNIWcWEDa ZEnkWEVoWXP3EaD0CNOrUYQaQH6YXrZiGAHbNzBqRYpeEDFpBYMivy9LQFPrFMTlXIN8EWJtFQIpTERw ETceORZnGHYrUpO8RDVpFFRsRY5ODiRlQBOgKlS1Eb HwXEPgHRVuzf7KQWPpHWEvFZtcEHCqOHUfJZYjBPfgXSVqKCB0MVF4RYYiYWGyAQ7RPmOvNLRyNxP3Xb HaJKLaNNXler5GHRNeRVKsAsB7XiDpKSRfUHBmUAceFURdNLH3FfF1JPBxRZBuJL6TDoLeXRZzPnrpSD QyBXGcSMDsha5IWQVhMINfPGHcHaMnCRXmAXFyKEqf CQAnMFX8SuE7HSChQPVyAY5FWfTqOIZvMji2KmWqVGNcRQKlrc1OQJErIQYvNXb2CKFsWHSrKHQhHWzz WLSyURDiGKM6AKHoEXPaTZ1ESyRbHSGyKSQ2YqltEMIkXCQanv9FHPLaQYS7UXs8OsIySKPaYILwOZah HCWiVCHiYUX1PJPpKHFwFV1AQhOeSAVhQPZwGSOsIH MpTFDhpy7KEBRuAOE8OuX5SXYpSDZqKLYuSWdeOKIuUEHtDlPpNHBsKGUmQQ7AGrMkAMYwUJfbARhbIQ LvWIFagm8SSEToCPG6HiI2BGIrSOGfZEKdYVtiGEAgBLE9LRa4UUYbQUNiJP5YBiDxELYjKDllHTfhAF PlKCGuwp6CRZMcDLG3WIGtEAHgFHCkDSEeGOfyWAUc OOY8RpJ0RVJhTNZkHN8QHmVsCEMjFKi7WCHiBRBbWHIchg9JcXXxvHlusv7WHSrVNu2FqSkyRPC5ZMsa Nl7neXP3AVBbCPNVHp6GeeEfOVXiXHIIFIlfDQOcDWAcW6Q3DWlgJ1KuGGVtBKLlE3ViQEqxLMQuRgEc CLU1LkG5VHBaLoGrZ2S3SHXnWUQ1Z1M3MbYmYHK6SZ MzVcJ4Vrt+XM0cDRc+Cm3Ok4NqcfE1brKpPHj9XJLiCc0NICXDC5TUFp== ID Date Data Source [id number] 04/03/2020 12:16:02 PM EDT [facility] Name Value Range Interpretation Code Description Data Lisa rce(s) Supporting Document(s) Glucose [Mass/volume] in Capillary blood by Glucometer 136 mg/dL 70- 140 [facility] ID Date Data Source [id number] 04/03/2020 08:42:12 AM EDT [facility] Name Value Range Interpretation Code Description Data Lisa rce(s) Supporting Document(s) [facility] LKIOOc9sQzKQQkQfj5PtIrMqIWAyQZ9nzwa6D9I2rULmQ2IokQAor8zjN1LfK5GkGGBcAFCZRX4AhYTf jb2 [file] 5G/rodriguez/yXN79Z08++Cmj9qCY4e9F9F/2TL+axf//ab96Gxs/6/08q8gjby0/8bmQ0hwnk/M531u/M7U/F 9/E9v4n+/KH+P/ev7+E2gGv4e+au/7na1/zyP/n+ue 7uv/8Q/5+bwveuV87k4Y+8/+wPPTL0z6bmyM3gA4g5xmd1k862VvZyoh/p/6hxTy3fU+3/h/E1Vvusvl 7+Bc2lv6m4V+Tv29U/AZh4ab1b3c/x++yZ52W98/rw/F67OJ5v2Ycs9yb7fq/bG685oFq+dpb37+9tff xy1d0A5+++fS46+880M92Vk149fx/[employer]ATOR/O+585N2L74 [file] Aegr8dm6Re8JV+NSyBVyg/zcn+M69+m0uo0H4+znuALyAfmAfEI+IU/IE/DYLAN/TdjuNMrFq9NTZJCXKMP kT5ne72NEiwmDJf5VX/IB+NK9xf2uRsdF0oG2ujmbsQ83nysA+SHzBPwaQocJya3Mfkc4Gjfe6Iuef0B oCV9PmWC8Qi4g9Akw9XLsJ2AB4J+mx6LD8qlR/cx5A a5Ob0GD+QBeUA+IB+EG8xp3Iv9Me0K69C4f4sRDHkAhl1TB2j+Dn0d+li5ugxz0Gjfd3Nfd79EsX39Lf X38Oc3Jvu4R/h+M77e1OhZ3GpIww0i54X+NiztnS5H7ZrNxw4i56F+HamcpK5W3U0A72jT/Spwv0L+VS D/KpB/Custodial/YyUcmtI6ncT+NXC/Yvx9K22035D3sqS+ PHB/Hrg/Rg1JdP8N6xWO/Ana Lilia+P35ZA2X1F8EEjUQFIDCEP6lYE8dlqtHJj8RM/IB+EDpco5na+EvhP6 Ahg4lY0MP/RsXH8F1BkXqrelc8kdp5I1eA7W86V+CX0T+nw4Fszz9Qtyw4NagX0KabC/CsQHA/HBQHww DI6AyPfD7zAUwUUFIzzJNxAcdSV8SXWnMPEGZ/HBQH uoCE7PdVzN5eDOnUGRZo0hp1N54NT9rFW+OBAfHIgPDsQHB+KDA/KXihlaGLhrKH40XK6igE6AxUwU7u MD8cGB+BMNoVQiEviWYnoGGc5OFpqjwhIiqMALS/AWazc0Jdf/PQP6c6rZ3NKgOpxSpOJzzHpdNjkfxx 89+TcDY87X2LPbLmMdU5lGsoD0THsZmgfoD0JC6Pk+ WO9qfocBK7//eeiEPCFPyAtyfL+BZo7JGxzvw5Kx/SI+OBAfHIgPDsQHB+KDA/GSvkmmRKlrEF45FB1s dF0Jq47TrF12AaY6702iqt2Obu/IBXKBXCE/9+cB/9Xw8/wdfp6/cs1ycN4LivVpX9VIoLvsVXcKKu1l +xl5Eijb6Lrdk9YnVLiVsnEkBJgWpB/0ZfV1ugLjtn D46iJ95gObopBx6gd/Fr/gNUmTrf86Fa/g4XQODR/Sr0LOCiafQf8RJEnr4RV1u8t+2QH/1RgnXjYWv+ v7uwz93bY+z4ovLD/blEZsMXwXZ573WsdqkVxR3sWCvXM1wo51Q60rZr+6Rp//7SiC7VnW/GqfZ32/y8 88Fr/maZGI5WgztThX/KqbXI/Gv2uWHOn+1bGGsfiV rlqMsfhV+5LB9qdK17ovKfks+87SjS4FZbdf+hXsuMOqgN+gwvBBwPUBwANMpB03+FXXhqy6+T36I4Ea C33+FV/oay1+1XUiY/Gr9v+Zhc1rPvZMja81ItAQm+f5c2w9bpiHiyJRi+W898eM5sm9pHB3ai+Lxa+6 PoVebuF5LsGOnGSlvG+MPPGFkSe+Royal/2jZf/KrrRM ifH1uyT154x3I07SGGP76qja/LiipVj3mPeD4Cv1M1Fxix465t3Lr/MjGvl9B92Ze0REP+vzUgx/2qcL 6r1J9O2+fC/blwvwK/muBXE/iipy8P6LnJmeJXiqz90RB/muBXE/wpFsd7E1/DN+Z1+MZEfvtEfvtEfv l1PaRyk9arD6yyK6fzP9lgF9goR4dpX3seU9wwF9dq dQlnSxwSCk2Zoic85YF/muBXE/mvkd7H2IkOliGOs7agcQdpQ+CSuHGfiKabDnaR6yN00OR21SMzk6YT ty9RN1V+Jw8FYwyZ+du7Trfd6HahN/Eab4QyW5kvQu/vaz24Xa2IV+GJ8eL2iWbUafJh7QS6ednkorw8 pp/7vyg44gd96y/6rHAshFraLgxE7eQR9AJ9Q2+r+j Q56W7PT+SN8rS0pwypv/DQequO9MHnAxj/pg2CSrNL9Xp1Nl7V78cQO46IPajwvbmXI2Jl01i8+Ni/+V V/L4HvN/L3Md8gtQsN/KuJ/KuJ/Rz5qE8Q0rNJhp1RtdT7m3R8G+oHJ+oHJ+oHJ+oHJ+oHJ+oHJ+oHJ+ oHJ/xXE/euox341r+a8F9N+K8m/FcT/qsJ/9WE/2rC mgKek7efO873huz7HkF+qwn/5FV9lNC+OBEfnIgPTsQHJ+KDE/NQsxxilSdlnQnzS1rJudYoTAzYOdCO NSPwoALypY1MyKH1FrXF5EwNm6KbMa+CvgV9C/fF1C6zE2J8gV6UI/CpPV43qc8dYj+CvgV9C/oW9C3o N3cyjF4+eV2QC+QCuUKukJ/2zSp5N7ge/J9pfwlZ6y D7NI9lt8OMuHAqtAyyG++/Kef9N+XMJHZHuJUgmmwsz02EpHG4VqRL5XlRW0UwQN+ZwdN0am+acH2H5N cn8tsT+e2J/ZBYrnpkyn4K883Ro3/slqmb2cJ69Wb96pH/KuG/SuS3J/LbE/wizzw5XV10Af572p5J+K 8S/quE/corq6o1whO+q4T/KuG/MhzgNx6anO9r7n2U +K8S/quE/ncM231Qz8/rzbbf1rS57Nu39pQ+eyK/PZHfnshvT+S3J/LbE/gqnew1DC70Ji33ws+eyG9P 8Lwf6jkM+e2J/UVIjtuppf3I740Qk9/emaks9yC60Ti08jZ+e6J+MFE/mKgfTNQPJuoHE/WDifrBDOgb 7Jlhu6CpdO7ZdVR1Rwc0sZ+VwdE9Ohi5oS+AvuBXOa DvgL4D+f0lM6SqbF3V+p5mG4Pv+jMk+jMk+jMk+jMk+jMk+jMk+jMk+jMk+jMk+jMk+jMk+jMk+jMk+j Mk+jMk+jMk+jMk+lSePFq1Yk/8QX5jAdogIV/6WzMw94cOwfTiLQfYCFXK/LwPZvMraXm/D/MeWE4YE7 aA2RHeIHkWlzDT8Gm5QCu5Yh1ipU+WnZ1I6B4h8f8Y +VeJ/KtE/Moy/ukBu8MBp8mj+PyqhW1wSs0aa/db+N5Yi5TbQcM3ZaB/VcF/Vci/OrZrCuSlJhhKSS8X 4FcFflXgVwV+DgEGUM1P6RsRkqZeIbW+TAoPPxJUwbibUZ3EcU7L1yQT+GAhPlhyvt+C/5ixqeh8fon+ q0L/q0L/q0L/q0L/q0L/d4Z5XSYtoJr+NCT9XCc6Il zkX5We/YgfalFiqqUgiXcKZ46Qb653VNMYg9k/fS1+5ZPC8s4J+3j52/ffLH/7/r9L3+OhqjJNm70/8l UK/qta/Kg2BmM6VmyD0LOIUzlqL5/duCm59Ciqn1tCc5gkyWj+QzlPLUfpAonzPdimgL9GAb3h54Az+V v5Clghw/lVf/5Nn9pFLbzksJ+8Fr/qmEV1/6uxj+OO TNI8v1rcccp+V/t4+dtb3+5/Te56Lcr0K97Rp+f6oJr9wwnveoxr9A9d/ilu4sj3/1V//sWvfPnqa/Gr jl/K0aeqQ1rHjzilROimwV8wmv/itm946YlUzd+rtnP3v+s54K2lXupw2Lb/1f6/lfYyxXu4E4uuyNgc 1smsyk59cwBGdZs/8rxX3b0HqQwXd2u0vC9N0R9YM3 ZUgf3c/a96nze/qm8un16F27w1nt/l2zl7Qj09uSxX+VeF/PZC/Minh/8zMe1CFxapsPnP9ObT1UnD4L0 TA/Xng/jxwfwa/QqRmIh1m9JgQwtfsjwF/IfCeVx8u7YlBvsmtsoJ/ExBaDw3m9FqYatgpfgR/KvCrAr 6h2ZrVxzohsxN/GhBmCl9i6OoD/6tC/6tC/1hWb1DS /AOxdtUWL4hrQbnYNnppErk5n1X72hW+eyG/vVA/WKgfLNQPFuoHC/WNkisQAo9cqU0vEW8ZqJ6e8Z8U 4h2E0YQL+sFC/RPvxoIGD3woBcqPHljqMmf1g7V5iBO0FIB+hEf9ZiAy1Aq0JCB+FQaUEf93Z765Rw2Q CBEhokSUiBExImdjPxaBRRAJIoPIIDKJTCJJJIkUEf Z4e8j56INO7UqwFj/4Kq1OvUQH0qbeuwi2mQ9vw2gAsAJcHvUqvNwok8lxQlxfeVDNYTnYEgKaSuRPEY goESVCGyCe+Tf2ItNHDpTKapHfNSAZTHI6J4J1CZwffoA4MjI7Jbgdth+C8bdg/O9OugtNwf1BnyOy0D LftONrHYbQIRldv6jiRtbBGotyqDEGDqVYrJil+aR/ DtBb0qGIZUntAMCfAFlVIfznWQTWNQKkeRvywKMQHmYinxwTLH3FAwFG9ZKExB0iXjnjQfQutWGAYjAa EBlEJpFJJIkkkSJSQFC4+OvKZPGd2D5+LykVQZjR0gPUCkF1OACZfL0WpRCuu5UnOL0IcE9cjR6R54Kc KisnH6I6QUQqNN6PaR1p+VuY/C1M/hYmfwuTvwVUNb 4u+FuY/C1M/cAfgnyJXdo4stDCFh7fpTLGKtGclOAC1hKXUmYgmOviSk+AvNje8b9UAKiK54NvdFbd29 dRj9Rzdon7Laolbmt6KfJolMffHg+CkJKZZcWLq0BtSRo0OAkisIYlGGm2YRoxaTOtSMn7PIgfzTBzEG e9BZdsq6R/LogIESGiRJSIETEiTsSJBJEgMogMIpPI NBYMaqfLjJ5GMaCxLQiYrD2V0HLYcWiJfdy087FXS9BkQLXLYVGTmGHbsHEWHFXVmHVESRWYNJHvN6QD sWDSAyerccK8zcEQZragrtU8aqOAQnoZIme0hvkhxDJS9yODSydtPPHO2CKOGinrSZBB3VOZVwuvHBGS 2CNHYsdlCKOX2DKETglqQIYA9VZGIoks6WFC7aOKAu xh3ONF6fvnrufxwE+L0WT7E9AZ3at6tF8CI9M36F7Oo2oyxhSSSSDlXDQtZIOFBkUDgSnTJ6OI0F1FXg +waqYZK1QjJjwXSpVAJlihRXBeckoF/pYAQZsJLUXkHWcGKiZQVg7vdRLHX5XUsXg7uMcliPaG+onJbo h/D/zgBI/CLH1AF3ukq4FTEg9OUFtoQzkfbfUU6VOU 7CzaGmEuPe3qyLI+mSx9m0VJ/6RF/kv18d5hkc4Eq/xP2uR/0if/p0u2b6BU/6RV/jj33i0gxe8Qp/xP 2uV/0i9/W3vjsfOkmNWIKcMyZJ9PDkE3xp2xW0eUm126/0d17JbD7Wy/e37o7nu8ZkJ5y0/GG9y6eyhu pdvnPxHh/+fCABgsfH4v6yEe1S8GbLq86S619yXfMD HqySPdRv/yfbbVl+Alee+vCmdqLR+Jg5jsXwb8EuyQ4NOc4ca07s7S5Qhd26O13treuJY5SbkSZ/W0qvW [file] UvfiCuCjJVV9cvMa8xBhKlPNPRV5Jbf5BmMGTpRNLMBf8+CdS5ZHL9qXNbOld7LYSnUPksGQMMTg== ID Date Data Source [id number] 04/03/2020 08:22:06 AM EDT [facility] Name Value Range Interpretation Code Description Data Lisa rce(s) Supporting Document(s) Glucose [Mass/volume] in Capillary blood by Glucometer 139 mg/dL 70- 140 [facility] ID Date Data Source [id number] 04/03/2020 04:00:24 AM [facility] Name Value Range Interpretation Code Description Data Lisa rce(s) Supporting Document(s) Leukocytes [#/volume] in Blood by Automated count 5.3 10*3/uL 4-10 [facility] Erythrocytes [#/volume] in Blood by Automated count 3.24 10*6/uL 4.6- 6.1 L [facility] Hemoglobin [Mass/volume] in Blood 10.3 g/dL 13.5-18 L [facility] Hematocrit [Volume Fraction] of Blood by Automated count 30.9 % 4 1-53 L [facility] Erythrocyte mean corpuscular volume [Entitic volume] by Auto mated count 95.1 fL 80-96 [facility] Erythrocyte mean corpuscular hemoglobin [Entitic mass] by Automated count 31.7 pg 27-33 [facility] Erythrocyte mean corpuscular hemoglobin concentration [Mass/volume] [facility] 33.4 g[facility] [Ratio] by Automated count 16.3 % 11.5-14.5 H [facility] Platelets [#/volume] in Blood by Automated count 229 10*3/uL 150-400 [facility] Differential cell count method - Blood [facility] Neutrophils/100 leukocytes in Blood by Automated count 62 % [facility] Lymphocytes/100 leukocytes in Blood by Automated count 27 % [facility] Monocytes/100 leukocytes in Blood by Automated count 8 % [facility] Eosinophils/100 leukocytes in Blood by Automated count 2 % [facility] Basophils/100 leukocytes in Blood by Automated count 1 % [facility] Neutrophils [#/volume] in Blood by Automated count 3.33 10*3/uL 1.8-7 .0 [facility] Lymphocytes [#/volume] in Blood by Automated count 1.42 10*3/uL 1.2-4 .0 [facility] Monocytes [#/volume] in Blood by Automated count 0.43 10*3/uL 0-0.8 [facility] Eosinophils [#/volume] in Blood by Automated count 0.09 10*3/uL 0-0.5 [facility] Basophils [#/volume] in Blood by Automated count 0.03 10*3/uL 0-0.2 [facility] Nucleated erythrocytes/100 leukocytes [Ratio] in Blood by Automated count 0 /100{WBCs} 0-0 [facility] ID Date Data Source [id number] 04/03/2020 04:20:19 AM [facility] Name Value Range Interpretation Code Description Data Lisa rce(s) Supporting Document(s) Bicarbonate [Moles/volume] in Serum 22 mmol/L 22-29 [facility] Chloride [Moles/volume] in Serum or Plasma 108 mmol/L 98-107 [facility] Creatinine [Mass/volume] in Serum or Plasma 0.94 mg/dL 0.70-1.20 [facility] Glucose [Mass/volume] in Serum or Plasma 123 mg/dL 70-140 [facility] Potassium [Moles/volume] in Serum or Plasma 4.4 mmol/L 3.4-5.1 [facility] Sodium [Moles/volume] in Serum or Plasma 139 mmol/L 136-145 [facility] Urea nitrogen [Mass/volume] in Serum or Plasma 19 mg/dL 8-23 [facility] Anion gap 3 in Serum or Plasma 9 mmol/L 8-15 [facility] Osmolality of Serum or Plasma by calculation 291 mosm/kg 275-300 [facility] Creatinine/Urea nitrogen [Mass Ratio] in Serum or Plasma 20 [facility] Calcium [Mass/volume] in Serum or Plasma 8.8 mg/dL 8.8-10.2 [facility] Glomerular filtration rate/1.73 sq M pre dicted among non-blacks [Volume Rate/Area] in Serum or Plasma by Creatinine-based formula (MDRD) >6 0 [facility] Glomerular filtration rate/1.73 sq M pre dicted among blacks [Volume Rate/Area] in Serum or Plasma by Creatinine-based formula (MDRD) >60 [facility] ID Date Data Source [id number] 04/03/2020 04:20:19 AM [facility] Name Value Range Interpretation Code Description Data Lisa rce(s) Supporting Document(s) Magnesium [Mass/volume] in Serum or Plasma 1.7 mg/dL 1.6-2.4 [facility] ID Date Data Source [id number] 04/03/2020 04:20:19 AM [facility] Name Value Range Interpretation Code Description Data Lisa rce(s) Supporting Document(s) Phosphate [Mass/volume] in Serum or Plasma 2.9 mg/dL 2.5-4.5 [facility] ID Date Data Source [id number] 04/03/2020 12:34:03 PM [facility] Name Value Range Interpretation Code Description Data Lisa rce(s) Supporting Document(s) Natriuretic peptide.B prohormone N-Terminal [Mass/volu me] in Serum or Plasma 1004 pg/mL <450 H [facility] ID Date Data Source [id number] 04/02/2020 08:54:21 PM [facility] Name Value Range Interpretation Code Description Data Lisa rce(s) Supporting Document(s) Glucose [Mass/volume] in Capillary blood by Glucometer 139 mg/dL 70- 140 [facility] ID Date Data Source [id number] 04/02/2020 05:08:37 PM [facility] Value Range Interpretation Code Description Data Lisa rce(s) Supporting Document(s) Glucose [Mass/volume] in Capillary blood by Glucometer 184 mg/dL 70- 140 H [facility] ID Date Data Source [id number] 04/02/2020 01:26:02 PM [facility] Value Range Interpretation Code Description Data Lisa rce(s) Supporting Document(s) Glucose [Mass/volume] in Capillary blood by Glucometer 142 mg/dL 70- 140 [facility] ID Date Data Source [id number] 04/02/2020 01:05:35 PM [facility] XR CHEST FRONTAL ONLY [id number] RESULTI nterpreted by:Otis Huntley, MDPROCEDURE INFORMATION: Exam: XR Chest, 1 View Exam [...] Date Data Source [id number] 04/03/2020 06:08:02 PM [facility] Cmnt XXX-Imp : NoneMicroorganism XXX Cult : 2019 nCoV Real-Time RT-PCR: NOT DETECTEDThis test method was designed to detect the causative agent of COVID-19. The Dept. of Pathology [facility] has Emergency Use Authorization (EUA) from the FDA to peform this test to allow for rapid response during a declared public health emergency.Initial validation was performed by the Centers for Disease Control and Prevention (CDC) and additionally validated by the Dept. of Pathology [facility]. Negative results do not preclude SARS-CoV-2 infection and should not be used as the sole basis for patient management decisions.Additional information is available on the following FDA websites for health care providers and patients. https://www.fda.gov/media/868033/download, ht tps://www.fda.gov/media/989871/download. Name Value Range Interpretation Code Description Data Lisa rce(s) Supporting Document(s) ID Date Data Source [id number] 04/02/2020 12:56:00 PM [facility] Cmnt XXX-Imp : NoneMicroorganism XXX Cult : 2019 nCoV Real-Time RT-PCR: NOT DETECTEDThis test method was designed to detect the causative agent of COVID-19. The Dept. of Pathology [facility] has Emergency Use Authorization (EUA) from the FDA to peform this test to allow for rapid response during a declared public health emergency.Initial validation was performed by the Centers for Disease Control and Prevention (CDC) and additionally validated by the Dept. of Pathology [facility]. Negative results do not preclude SARS-CoV-2 infection and should not be used as the sole basis for patient management decisions.Additional information is available on the following FDA websites for health care providers and patients. https://www.fda.gov/media/447940/download, ht tps://www.fda.gov/media/323709/download. Name Value Range Interpretation Code Description Data Lisa rce(s) Supporting Document(s) Microorganism identified in Unspecified specimen by [facility] This lab was ordered by [facility] and reported by [facility]. ID Date Data Source [id number] 04/02/2020 01:28:56 PM [facility] Name Value Range Interpretation Code Description Data Lisa rce(s) Supporting Document(s) Hemoglobin A1c/Hemoglobin.total in Blood by HPLC 7.4 % 4.0-6.0 [facility] (NOTE)<5.7% Average risk of diabetes (ADA)5.7-6.4% Increased risk of diabetes(ADA)>/= 6.5% Diagnostic for diabetes(ADA) Glucose mean value [Mass/volume] in Blood Estimated fr om glycated hemoglobin 166 mg/dL <126 [facility] ID Date Data Source [id number] 04/02/2020 01:05:53 PM [facility] Name Value Range Interpretation Code Description Data Lisa rce(s) Supporting Document(s) Leukocytes [#/volume] in Blood by Automated count 5.0 10*3/uL 4-10 [facility] Erythrocytes [#/volume] in Blood by Automated count 3.28 10*6/uL 4.6- 6.1 L [facility] Hemoglobin [Mass/volume] in Blood 10.7 g/dL 13.5-18 [facility] Hematocrit [Volume Fraction] of Blood by Automated count 31.3 % 4 1-53 [facility] Erythrocyte mean corpuscular volume [Entitic volume] by Auto mated count 95.3 fL 80-96 [facility] Erythrocyte mean corpuscular hemoglobin [Entitic mass] by Automated count 32.5 pg 27-33 [facility] Erythrocyte mean corpuscular hemoglobin concentration [Mass/volume] by Automated count 34.1 g/dL [facility].0[facility] width [Ratio] by Automated count 16.0 % 11.5-14.5 [facility] Platelets [#/volume] in Blood by Automated count 234 10*3/uL 150-400 [facility] ID Date Data Source [id number] 04/02/2020 01:21:14 PM [facility] Name Value Range Interpretation Code Description Data Lisa rce(s) Supporting Document(s) Heparin unfractionated [Units/volume] in Platelet poor plasma by Chromogenic method 0.38 U/ml [facility] ID Date Data Source [id number] 04/02/2020 01:21:14 PM [facility] Name Value Range Interpretation Code Description Data Lisa rce(s) Supporting Document(s) Prothrombin time (PT) 13.5 s 12.5-14.9 [facility] INR in Platelet poor plasma by Coagulation assay 1.02 [facility] Routine intensity oral anticoagulation I NR is typically 2.0-3.0. Target INR must be clinically individualized. ID Date Data Source [id number] 04/02/2020 12:27:45 PM [facility] Name Value Range Interpretation Code Description Data Lisa rce(s) Supporting Document(s) Glucose [Mass/volume] in Capillary blood by Glucometer 133 mg/dL 70- 140 [facility] ID Date Data Source [id number] 04/02/2020 10:55:48 AM [facility] IR FEMORAL ARTERIOGRAMFINAL RESULTInterp reted by:Shauna Cook [...] exchanged over a wire for a 5 Persian catheter. Multiple images of the right lower [...] Name Value Range Interpretation Code Description Data [facility] rce(s) Supporting Document(s) ID Date Data Source [id number] 04/02/2020 10:37:07 AM [facility] Name Value Range Interpretation Code Description [facility]) History and Physical [facility] QNMGHd5gHnIKYxTr33/SFLhbICVye4IsCSdbVYn7ZJexUIHlR8KqIFV6rY8bFQE2FKgOWwXzJfNhAzI6 lbm [file] AgICAgICAgICAgICAgICAgICAgICAgICAgICAgICAgICAgICAgICAgICAgICAgICAgICAgICAgICAgIA 0KICAgICAgICAgICAgICAgICAgICAgICAgICAgICAg ICAgICAgICAgICAgICAgICAgICAgICAgICAgICAgICAgICAgICAgICAgICAgICAgICAgICAgICAgICAg ICEhAQEhKZMpSD9NUUXjBFYdVABfZKCbVZLmYLPzYREdVJFjVAGlJMZvSFSvUFEzVHPpOUWoXWVgMMRy ICAgICAgICAgICAgICAgICAgICAgICAgICAgICAgIC PoBBOgJQWrPNXiFDWoPTQnGEPuZY5CPSRuTECyZNDnQQWjYLCfNVSsSFIgSZEzSASaVEKnPLZcHQOeWX AgICAgICAgICAgICAgICAgICAgICAgICAgICAgICAgICAgICAgICAgICAgICAgICAgICAgICAgICAgIC VbWH4NEEPiCAGzELLqZZTaTCSaOCKoFUIkGSBwMTAu ICAgICAgICAgICAgICAgICAgICAgICAgICAgICAgICAgICAgICAgICAgICAgICAgICAgICAgICAgICAg JLGoNNYpNYEtGULpOM9LCSDjFXPbHCHhHRXwEJExMNUgLWStGSAbLMTwEUHoDZWoAYOcTNGwQTHuEIYw ICAgICAgICAgICAgICAgICAgICAgICAgICAgICAgIC HvAYReRZEaROWxXRUgCHCjPHEpLPLxMR6GCLMlOFReIINaLOBiISZdXTQsJPIkFTVmLGVcCPXnIEYuQH AgICAgICAgICAgICAgICAgICAgICAgICAgICAgICAgICAgICAgICAgICAgICAgICAgICAgICAgICAgIC MfQJWeIM3FAHJlKEGaWQPjUIYjQKKoGATpDDPiBDXs ICAgICAgICAgICAgICAgICAgICAgICAgICAgICAgICAgICAgICAgICAgICAgICAgICAgICAgICAgICAg YLNeXVBmEECpRTAdUYZlDA6KBWLsMKNpCDWqPRVqMZItPYBuEKPxUYYsKZXtCBPtKOGsLMKkXIMmTIZx ICAgICAgICAgICAgICAgICAgICAgICAgICAgICAgIC UyGTOqOIKeEGZwAWIlWQPcZYCzWFNeUALvZK5FUKDjOUUpCEPuRKKlQYUxGGSdTLRoQKVxOAXvDYHhCE AgICAgICAgICAgICAgICAgICAgICAgICAgICAgICAgICAgICAgICAgICAgICAgICAgICAgICAgICAgIC RaCZHyKMAkTR7EVR72eFStz3T6FXKhIS1shxv/Pg0K TWvcsyOyoULsTD4BCtMmJA6ohw1SEgItCC3kva7LJAnWGzHjI8F6eSAgNYPwXCPDMhGpQ88kLWxpTy97 LYjoQESmWxEgNQe1Lq3ENwPeO3evFRMgLoK7WOTqFjO9TRAbNoD2UVWcEmOuWTupCR7Fa8XbrAZdJEt+ Hi4WPD4hs2WtKRefJGMrPC6faj2LHQaMZvDoW8Dmfw N5CVFzHIByIz7SIWMvPQYzaUUsBWNpOBQYIyXcL3NcjA52SPQPFn3+GUtoyzNwQxaCYwHpGESqz6YeAF d4SQ0RWEWyOFk0oLJaCNJMQIB9BJZ2mxEfbvPTePSfxGbiTONbNQZcMt8oCU6aNBHdZCE8FaGeUPXAVX 8IOUPgGYMukNIpBABhPRNWCX7URVecJLR3YDRlxsRb pSKsCXzhWW2FGEOhpjIwDdqbPLWLVGn+Dm0CBE2ys1AvQPqyOFZjFL1cjy7KKJtICrYgH5A2pLKpZ2N4 FLqyVn6XCOPkDGFoHhsuHDCEBUawSI7JEA0maaO4XI4KxMRoWEJlNANgeSAkIHf7Q49esFVoEFtcMU4K ICA+Chintan+Ci6RTLAfUULbOALpTdBvNLPIIfDcS4FdR7 DIy8GoT5PfYW51bMpgeuOzEEjvTU1AJZ0lSOQiWCVSIT2DlURsgG2kqjOlQTFhWUFSWyNeO54yrUNmPW LbJEC3BLUhJa5ZZFYvH6LgpqSowLlfzcYcURLvBVZZEN3QDTolgsKxpONbgQiaRW72aBimNU2ZMk0UGv OrSU5tga0ArLJeCd6HTSSqGw6IPDIgWUHiMYEfNAS6 CPClOmKkKIduAJOqZHQySFA2ERSaOECqED0FLyDzXXEmUuJiDymtIHBnSXOnwq6DLTFsZVOoRgx9RWOi ZSYeOSXqZYnxDAMgYNHnKLR4GTLhMAMvFQ2WQiPiJUVmFLV8XcWmJBFsAYFwob4GQOUfBSRrKan5IOBd AWPcOWRrHUubPYStTOX2KvB5SNNaHJXzKI8QZmEbRD OkTPQ0ZsJtAVObJWHmgc7WZDPaWIPnJtOlIcRxOASiWBXjCRpbPVRwVGS1HNZsOLZiUCDrIE1PRqFcYG YbLEs0WVHcUVCzKMIxwm8WOXNuXREqPHH6MnXfPGWuVAAoZWffQPPxPQA9QSupLHGmHALgRW2TZfAeVM DmNTp9OgwwBCYnNIPhqc5LWXTjOJJiNKL7IETrVCAk PLZkLLydHLSvVSXnHnF2UWUgEJEcNC8HZaHcEKYjXWTqWXnaGBLuJJSbru1JAUWqQHNoUGL3PYBySESt UOAtAMrwYYJmHRJwDOh3TNDdDKVpAF2MGjPqQNGbZKO1OainQLAvHFJaym9EEWSgJDVoXwzbXQUlXRAz APReLNutJIEtABOfNXB6LMWbBKFeIB1VIvZcBQGwBi GvRIEuJQGdTVDwlw9BUYSjXUZzRNOkUDHdPAFbUPWlKLdmEGEzVUE4RBCkRXCqQATkME7KEsQxFLDzIm BxBoceCKLpNHBouh3ZIQSaJLXvHLXvSYUsZZDjONPlVGcjUWXxRIV8RwL3TPHlNUBePM7COjKrTMReNe bvUVonXVNgYZCmkn3HVKAzOOBfEmN8WEBlDRUrTXHq LVnxVWFoXQX8UqZ6NNKwKBRvGG0OStHuXNxvCRYZQym0FNlaN3c2PTCcHo7WZ0Ryz6CgQoXoJJOGJQby VT7vozNjIREwXi4ND2vHPmw1SXk3GXr0V9RrKDVfSQQ5ZkOlDMYxZKpbBpUeRIr0EM8tNXe2SJrhDLFt YTCbQDDzFFifNTSvOqG0GEPxKhN4HRHuObXzXZ1DYw4RJcB9UUJ8qQLkAr3FYss2NRgCUvHgPJ7ZUMn= ID Date Data Source [id number] 11/02/2019 12:00:00 AM EST eCW1 ([facility]) Name Value Range Interpretation Code Description Data Lsia rce(s) Supporting Document(s) Hemoglobin A1c/Hemoglobin.total in Blood 7.3 HEMOGLOBIN A1c W1 ([facility]) ID Date Data Source [id number] 11/02/2019 12:00:00 AM EST eCW1 ([facility]) Name Value Range Interpretation Code Description Data Lisa rce(s) Supporting Document(s) Microalbumin/Creatinine [Ratio] in Urine 55.6 0.0-30.0 SHALINI/CREAT RATIO eCW1 ([facility]) Albumin/Creatinine [Mass Ratio] in Urine 76.2 MALB URINE SIEMENS eCW1 ([facility]) Microalbumin/Creatinine [Mass Ratio] in Urine 137.0 CREATININE, URINE eCW1 ([facility]) Procedure Social History Code Duration Value Status Description Data Source(s ) Alcohol intake 11/18/2020 12:00:00 AM EST Not Currently completed [facility] Smoking 11/18/2020 12:00:00 AM EST Never smoker completed Never s moker [facility] Smoking 11/09/2020 12:00:00 AM EST Never Smoker completed Never S moker eCW1 ([facility]) Smoking 11/09/2020 12:00:00 AM EST Never Smoker completed Never S moker eCW1 ([facility]) Smoking 11/09/2020 12:00:00 AM EST Never Smoker completed Never S moker eCW1 ([facility]) Smoking 11/09/2020 12:00:00 AM EST Never Smoker completed Never S moker eCW1 ([facility]) Smoking 11/09/2020 12:00:00 AM EST Never Smoker completed Never S moker eCW1 ([facility]) Smoking 11/09/2020 12:00:00 AM EST Never Smoker completed Never S moker eCW1 ([facility]) Smoking 11/09/2020 12:00:00 AM EST Never Smoker completed Never S moker eCW1 ([facility]) Smoking 10/19/2020 12:00:00 AM EST Never Smoker completed Never S moker eCW1 ([facility]) Smoking 10/19/2020 12:00:00 AM EST Never Smoker completed Never S moker eCW1 ([facility]) Smoking 10/19/2020 12:00:00 AM EST Never Smoker completed Never S moker eCW1 ([facility]) Smoking 10/19/2020 12:00:00 AM EST Never Smoker completed Never S moker eCW1 ([facility]) Smoking 10/19/2020 12:00:00 AM EST Never Smoker completed Never S moker eCW1 ([facility]) Smoking 09/12/2020 12:00:00 AM EST Never Smoker completed Never S moker eCW1 ([facility]) Smoking 09/12/2020 12:00:00 AM EST Never Smoker completed Never S moker eCW1 ([facility]) Smoking 09/12/2020 12:00:00 AM EST Never Smoker completed Never S moker eCW1 ([facility]) Smoking 09/12/2020 12:00:00 AM EST Never Smoker completed Never S moker eCW1 ([facility]) Smoking 09/12/2020 12:00:00 AM EST Never Smoker completed Never S moker eCW1 ([facility]) Smoking 09/12/2020 12:00:00 AM EST Never Smoker completed Never S moker eCW1 ([facility]) Smoking 09/12/2020 12:00:00 AM EST Never Smoker completed Never S moker eCW1 ([facility]) Smoking 09/12/2020 12:00:00 AM EST Never Smoker completed Never S moker eCW1 ([facility]) Smoking 09/12/2020 12:00:00 AM EST Never Smoker completed Never S moker eCW1 ([facility]) Smoking 09/12/2020 12:00:00 AM EST Never Smoker completed Never S moker eCW1 ([facility]) Smoking 09/12/2020 12:00:00 AM EST Never Smoker completed Never S moker eCW1 ([facility]) Smoking 09/12/2020 12:00:00 AM EST Never Smoker completed Never S moker eCW1 ([facility]) Smoking 09/12/2020 12:00:00 AM EST Never Smoker completed Never S moker eCW1 ([facility]) Smoking 09/12/2020 12:00:00 AM EST Never Smoker completed Never S moker eCW1 ([facility]) Smoking 09/12/2020 12:00:00 AM EST Never Smoker completed Never S moker eCW1 ([facility]) Smoking 09/12/2020 12:00:00 AM EST Never Smoker completed Never S moker eCW1 ([facility]) Smoking 09/12/2020 12:00:00 AM EST Never Smoker completed Never S moker eCW1 ([facility]) Smoking 08/22/2020 12:00:00 AM EST Never Smoker completed Never S moker eCW1 ([facility]) Smoking 08/22/2020 12:00:00 AM EST Never Smoker completed Never S moker eCW1 ([facility]) Smoking 08/22/2020 12:00:00 AM EST Never Smoker completed Never S moker eCW1 ([facility]) Smoking 08/22/2020 12:00:00 AM EST Never Smoker completed Never S moker eCW1 ([facility]) Smoking 08/22/2020 12:00:00 AM EST Never Smoker completed Never S moker eCW1 ([facility]) Smoking 08/15/2020 12:00:00 AM EDT Never Smoker completed Never S moker eCW1 ([facility]) Smoking 08/15/2020 12:00:00 AM EDT Never Smoker completed Never S moker eCW1 ([facility]) Smoking 08/08/2020 12:00:00 AM EDT Never Smoker completed Never S moker eCW1 ([facility]) Smoking 08/08/2020 12:00:00 AM EDT Never Smoker completed Never S moker eCW1 ([facility]) Smoking 08/01/2020 12:00:00 AM EDT Never Smoker completed Never S moker eCW1 ([facility]) Smoking 08/01/2020 12:00:00 AM EDT Never Smoker completed Never S moker eCW1 ([facility]) Smoking 07/18/2020 12:00:00 AM EDT Never Smoker completed Never S moker eCW1 ([facility]) Alcohol intake 07/04/2020 12:00:00 AM EDT Ex-drinker (finding) comp leted Ex- drinker (finding) [facility] Tobacco use and exposure 07/04/2020 12:00:00 AM EDT Never used co mpleted Never used [facility] Smoking 07/04/2020 12:00:00 AM EDT Never smoker completed Never s [facility] Smoking 05/05/2020 12:00:00 AM EDT Never Smoker completed Never S moker eCW1 ([facility]) Smoking 05/05/2020 12:00:00 AM EDT Never Smoker completed Never S moker eCW1 ([facility]) Smoking 05/05/2020 12:00:00 AM EDT Never Smoker completed Never S moker eCW1 ([facility]) Alcohol intake 04/02/2020 12:00:00 AM EDT Ex-drinker (finding) comp leted Ex- drinker (finding) [facility] Smoking 04/02/2020 12:00:00 AM EDT Never smoker completed Never s [facility] Smoking 03/30/2020 12:00:00 AM EDT Never Smoker completed Never S moker eCW1 ([facility]) Smoking 03/30/2020 12:00:00 AM EDT Never Smoker completed Never S moker eCW1 ([facility]) Smoking 03/30/2020 12:00:00 AM EDT Never Smoker completed Never S moker eCW1 ([facility]) Smoking 03/23/2020 12:00:00 AM EDT Never Smoker completed Never S moker eCW1 ([facility]) Smoking 03/23/2020 12:00:00 AM EDT Never Smoker completed Never S moker eCW1 ([facility]) Smoking 03/23/2020 12:00:00 AM EDT Never Smoker completed Never S moker eCW1 ([facility]) Smoking 03/23/2020 12:00:00 AM EDT Never Smoker completed Never S moker eCW1 ([facility]) Smoking 03/23/2020 12:00:00 AM EDT Never Smoker completed Never S moker eCW1 ([facility]) Vital Signs ID Date Data Source UNK Name Value Range Interpretation Code Description Data Source(s) Oxygen saturation in Arterial blood by Pulse oximetry 98 % 98 % [facility] Body mass index (BMI) [Ratio] 24.41 kg/m2 24.41 kg/m2 [facility] Body weight 79.379 kg 79.379 kg [facility] Body height 180.3 cm 180.3 cm [facility] Heart rate 89 /min 89 /min [facility] Diastolic blood pressure 60 mm[Hg] 60 mm[Hg] [facility] Systolic blood pressure 112 mm[Hg] 112 mm[Hg] [facility] Body surface area Derived from formula 2.06 m2 2.06 m2 [facility] ([facility], ) Body weight 87.998 kg 87.998 kg [facility] ([facility], ) [place] body weight 166 [lb_av] 166 [lb_av] MEDEN T ([facility], ) Body mass index (BMI) [Ratio] 27.8 kg/m2 27.8 k g/m2 MEDISABEL ([facility], ) Body weight 194.00 [lb_av] 194.00 [lb_av] MEDEN T ([facility]) Body height 70 [in_i] 70 [in_i] [facility] ([facility]) 5'10" Diastolic blood pressure 70 mm[Hg] 70 mm[Hg] [facility] ([facility]) Systolic blood pressure 116 mm[Hg] 116 mm[Hg] [facility] ([facility]) Body surface area Derived from formula 2.07 m2 2.07 m2 [facility] ([facility]) Body weight 88.565 kg 88.565 kg [facility] ([facility]) [place] body weight 166 [lb_av] 166 [lb_av] MEDEN T ([facility]) Body mass index (BMI) [Ratio] 28.0 kg/m2 28.0 k g/m2 [facility] ([facility]) Body weight 195.25 [lb_av] 195.25 [lb_av] MEDEN T ([facility]) Body height 70 [in_i] 70 [in_i] [facility] ([facility]) 5'10" Diastolic blood pressure 60 mm[Hg] 60 mm[Hg] [facility] ([facility]) Systolic blood pressure 120 mm[Hg] 120 mm[Hg] [facility] ([facility]) Diastolic blood pressure 64 mm[Hg] 64 mm[Hg] eCW1 ([facility]) Systolic blood pressure 107 mm[Hg] 107 mm[Hg] e CW1 ([facility]) Body temperature 99.0 [degF] 99.0 [degF] eCW1 ( [facility]) Respiratory rate 20 /min 20 /min eCW1 ([facility]) Heart rate 113 /min 113 /min eCW1 ([facility]) Body mass index (BMI) [Ratio] 25.50 kg/m2 25.50 kg/m2 W1 ([facility]) Body height 70.25 [in_i] 70.25 [in_i] eCW1 ([facility]) Body weight 179 [lb_av] 179 [lb_av] eCW1 ([facility]) Body surface area Derived from formula 2.07 m2 2.07 m2 [facility] ([facility]) Body weight 88.906 kg 88.906 kg [facility] ([facility]) [place] body weight 166 [lb_av] 166 [lb_av] MEDEN T ([facility]) Body mass index (BMI) [Ratio] 28.1 kg/m2 28.1 k g/m2 [facility] ([facility]) Body weight 196.00 [lb_av] 196.00 [[facility]_av[facility] Body height 70 [in_i] 70 [in_i] [facility] ([facility]) 5'10" Diastolic blood pressure 64 mm[Hg] 64 mm[Hg] [facility] ([facility]) Systolic blood pressure 94 mm[Hg] 94 mm[facility]Hg[facility] Diastolic blood pressure 77 mm[Hg] 77 mm[Hg] eCW1 ([facility]) Systolic blood pressure 124 mm[Hg] 124 mm[Hg] e CW1 ([facility]) Body temperature 98.1 [degF] 98.1 [degF] W1 ( [facility]) Respiratory rate 20 /min 20 /min eCW1 ([facility]) Heart rate 129 /min 129 /min W1 ([facility]) Body mass index (BMI) [Ratio] 25.50 kg/m2 25.50 kg/m2 W1 ([facility]) Body height 70.25 [in_i] 70.25 [in_i] eCW1 ([facility]) Body weight kg eCW1 ([facility]) Body weight 179 [lb_av] 179 [lb_av] eCW1 ([facility]) Diastolic blood pressure 64 mm[Hg] 64 mm[Hg] eCW1 ([facility]) Systolic blood pressure 139 mm[Hg] 139 mm[Hg] e CW1 ([facility]) Body temperature 98.4 [degF] 98.4 [degF] eCW1 ( [facility]) Respiratory rate 20 /min 20 /min eCW1 ([facility]) Heart rate 65 /min 65 /min eCW1 ([facility]) Body mass index (BMI) [Ratio] 27.78 kg/m2 27.78 kg/m2 eCW1 ([facility]) Body height 70.25 [in_i] 70.25 [in_i] eCW1 ([facility]) Body weight kg eCW1 ([facility]) Body weight 195 [lb_av] 195 [lb_av] eCW1 ([facility]) Diastolic blood pressure mm[Hg] eCW1 ([facility]) Systolic blood pressure 124 mm[Hg] 124 mm[Hg] e CW1 ([facility]) Body temperature 99.0 [degF] 99.0 [degF] eCW1 ( [facility]) Respiratory rate 18 /min 18 /min eCW1 ([facility]) Heart rate 76 /min 76 /min eCW1 ([facility]) Body mass index (BMI) [Ratio] 27.78 kg/m2 27.78 kg/m2 W1 ([facility]) Body height 70.25 [in_i] 70.25 [in_i] eCW1 ([facility]) Body weight 195 [lb_av] 195 [lb_av] eCW1 ([facility]) Diastolic blood pressure 78 mm[Hg] 78 mm[Hg] eCW1 ([facility]) Systolic blood pressure 124 mm[Hg] 124 mm[Hg] e CW1 ([facility]) Body temperature 98.5 [degF] 98.5 [degF] eCW1 ( [facility]) Respiratory rate 18 /min 18 /min eCW1 ([facility]) Heart rate 92 /min 92 /min eCW1 ([facility]) Body mass index (BMI) [Ratio] 28.21 kg/m2 28.21 kg/m2 eCW1 ([facility]) Body height 70.25 [in_i] 70.25 [in_i] eCW1 ([facility]) Body weight 198 [lb_av] 198 [lb_av] eCW1 ([facility]) Diastolic blood pressure 60 mm[Hg] 60 mm[Hg] eCW1 ([facility]) Systolic blood pressure 125 mm[Hg] 125 mm[Hg] e CW1 ([facility]) Body temperature 97.5 [degF] 97.5 [degF] eCW1 ( [facility]) Respiratory rate 20 /min 20 /min eCW1 ([facility]) Heart rate 66 /min 66 /min eCW1 ([facility]) Body mass index (BMI) [Ratio] 25.36 kg/m2 25.36 kg/m2 W1 ([facility]) Body height 70.25 [in_i] 70.25 [in_i] eCW1 ([facility]) Body weight kg eCW1 ([facility]) Body weight 178 [lb_av] 178 [lb_av] eCW1 ([facility]) Diastolic blood pressure 72 mm[Hg] 72 mm[Hg] eCW1 ([facility]) Systolic blood pressure 132 mm[Hg] 132 mm[Hg] e CW1 ([facility]) Body temperature 96.8 [degF] 96.8 [degF] eCW1 ( [facility]) Respiratory rate 18 /min 18 /min eCW1 ([facility]) Heart rate 80 /min 80 /min eCW1 ([facility]) Body mass index (BMI) [Ratio] 25.36 kg/m2 25.36 kg/m2 eCW1 ([facility]) Body height 70.25 [in_i] 70.25 [in_i] eCW1 ([facility]) Body weight 178 [lb_av] 178 [lb_av] eCW1 ([facility]) Diastolic blood pressure 68 mm[Hg] 68 mm[Hg] eCW1 ([facility]) Systolic blood pressure 124 mm[Hg] 124 mm[Hg] e CW1 ([facility]) Body temperature 98.7 [degF] 98.7 [degF] eCW1 ( [facility]) Respiratory rate 18 /min 18 /min eCW1 ([facility]) Heart rate 88 /min 88 /min eCW1 ([facility]) Body mass index (BMI) [Ratio] 25.36 kg/m2 25.36 kg/m2 eCW1 ([facility]) Body height 70.25 [in_i] 70.25 [in_i] eCW1 ([facility]) Body weight 178 [lb_av] 178 [lb_av] eCW1 ([facility]) Diastolic blood pressure 66 mm[Hg] 66 mm[Hg] eCW1 ([facility]) Systolic blood pressure 146 mm[Hg] 146 mm[Hg] e CW1 ([facility]) Body temperature 97.9 [degF] 97.9 [degF] eCW1 ( [facility]) Respiratory rate 20 /min 20 /min eCW1 ([facility]) Heart rate 73 /min 73 /min eCW1 ([facility]) Body mass index (BMI) [Ratio] 28.77 kg/m2 28.77 kg/m2 W1 ([facility]) Body height 70.25 [in_i] 70.25 [in_i] eCW1 ([facility]) Body weight kg eCW1 ([facility]) Body weight 202 [lb_av] 202 [lb_av] eCW1 ([facility]) Diastolic blood pressure 65 mm[Hg] 65 mm[Hg] eCW1 ([facility]) Systolic blood pressure 145 mm[Hg] 145 mm[Hg] e CW1 ([facility]) Body temperature 96.7 [degF] 96.7 [degF] eCW1 ( [facility]) Respiratory rate 20 /min 20 /min eCW1 ([facility]) Heart rate 85 /min 85 /min eCW1 ([facility]) Body mass index (BMI) [Ratio] 28.77 kg/m2 28.77 kg/m2 eCW1 ([facility]) Body height 70.25 [in_i] 70.25 [in_i] eCW1 ([facility]) Body weight kg eCW1 ([facility]) Body weight 202 [lb_av] 202 [lb_av] eCW1 ([facility]) Diastolic blood pressure 78 mm[Hg] 78 mm[Hg] eCW1 ([facility]) Systolic blood pressure 126 mm[Hg] 126 mm[Hg] e CW1 ([facility]) Body temperature 97.8 [degF] 97.8 [degF] eCW1 ( [facility]) Respiratory rate 20 /min 20 /min eCW1 ([facility]) Heart rate 80 /min 80 /min eCW1 ([facility]) Body mass index (BMI) [Ratio] 28.77 kg/m2 28.77 kg/m2 eCW1 ([facility]) Body height 70.25 [in_i] 70.25 [in_i] eCW1 ([facility]) Body weight kg eCW1 ([facility]) Body weight 202 [lb_av] 202 [lb_av] eCW1 ([facility]) Diastolic blood pressure 74 mm[Hg] 74 mm[Hg] eCW1 ([facility]) Systolic blood pressure 175 mm[Hg] 175 mm[Hg] e CW1 ([facility]) Body temperature 97.5 [degF] 97.5 [degF] eCW1 ( [facility]) Respiratory rate 19 /min 19 /min eCW1 ([facility]) Heart rate 66 /min 66 /min eCW1 ([facility]) Body mass index (BMI) [Ratio] 28.77 kg/m2 28.77 kg/m2 eCW1 ([facility]) Body height 70.25 [in_i] 70.25 [in_i] eCW1 ([facility]) Body weight kg eCW1 ([facility]) Body weight 202 [lb_av] 202 [lb_av] eCW1 ([facility]) Body mass index (BMI) [Ratio] 28.4 kg/m2 28.4 k g/m2 [facility] ([facility]) Body weight 204.00 [lb_av] 204.00 [lb_av] MEDEN T ([facility]) Body height 71 [in_i] 71 [in_i] [facility] ([facility] 5'11" Body temperature 96.0 [degF] 96.0 [degF] [facility] ([facility] ) Diastolic blood pressure 64 mm[Hg] 64 mm[Hg] eCW1 ([facility]) Systolic blood pressure 141 mm[Hg] 141 mm[Hg] e CW1 ([facility]) Body temperature 97.9 [degF] 97.9 [degF] eCW1 ( [facility]) Respiratory rate 18 /min 18 /min eCW1 ([facility]) Heart rate 70 /min 70 /min eCW1 ([facility]) Body mass index (BMI) [Ratio] 28.77 kg/m2 28.77 kg/m2 eCW1 ([facility]) Body height 70.25 [in_i] 70.25 [in_i] eCW1 ([facility]) Body weight kg eCW1 ([facility]) Body weight 202 [lb_av] 202 [lb_av] eCW1 ([facility]) Body mass index (BMI) [Ratio] 29.8 kg/m2 29.8 k g/m2 [facility] ([facility] ) Body weight 202.00 [lb_av] 202.00 [lb_av] MEDEN T ([facility]) Body height 69 [in_i] 69 [in_i] [facility] ([facility]) 5'9" Body temperature 97.4 [degF] 97.4 [degF] [facility] ([facility]) Diastolic blood pressure 59 mm[Hg] 59 mm[Hg] eCW1 ([facility]) Systolic blood pressure 126 mm[Hg] 126 mm[Hg] e CW1 ([facility]) Body temperature 98.6 [degF] 98.6 [degF] eCW1 ( [facility]) Respiratory rate 18 /min 18 /min eCW1 ([facility]) Heart rate 72 /min 72 /min eCW1 ([facility]) Body mass index (BMI) [Ratio] 28.77 kg/m2 28.77 kg/m2 eCW1 ([facility]) Body height 70.25 [in_i] 70.25 [in_i] eCW1 ([facility]) Body weight 202 [lb_av] 202 [lb_av] eCW1 ([facility]) Diastolic blood pressure 62 mm[Hg] 62 mm[Hg] eCW1 ([facility]) Systolic blood pressure 132 mm[Hg] 132 mm[Hg] e CW1 ([facility]) Body temperature 97.9 [degF] 97.9 [degF] eCW1 ( [facility]) Respiratory rate 18 /min 18 /min eCW1 ([facility]) Heart rate 75 /min 75 /min eCW1 ([facility]) Body mass index (BMI) [Ratio] 29.06 kg/m2 29.06 kg/m2 W1 ([facility]) Body height 70.25 [in_i] 70.25 [in_i] eCW1 ([facility]) Body weight kg eCW1 ([facility]) Body weight 204 [lb_av] 204 [lb_av] eCW1 ([facility]) Diastolic blood pressure 54 mm[Hg] 54 mm[Hg] eCW1 ([facility]) Systolic blood pressure 111 mm[Hg] 111 mm[Hg] e CW1 ([facility]) Body temperature 97.8 [degF] 97.8 [degF] eCW1 ( [facility]) Respiratory rate 18 /min 18 /min eCW1 ([facility]) Heart rate 65 /min 65 /min eCW1 ([facility]) Body mass index (BMI) [Ratio] 29.06 kg/m2 29.06 kg/m2 eCW1 ([facility]) Body height 70.25 [in_i] 70.25 [in_i] eCW1 ([facility]) Body weight kg eCW1 ([facility]) Body weight 204 [lb_av] 204 [lb_av] eCW1 ([facility]) Diastolic blood pressure 64 mm[Hg] 64 mm[Hg] eCW1 ([facility]) Systolic blood pressure 142 mm[Hg] 142 mm[Hg] e CW1 ([facility]) Body temperature 98.9 [degF] 98.9 [degF] eCW1 ( [facility]) Respiratory rate 20 /min 20 /min eCW1 ([facility]) Heart rate 57 /min 57 /min eCW1 ([facility]) Body mass index (BMI) [Ratio] 29.06 kg/m2 29.06 kg/m2 eCW1 ([facility]) Body height 70.25 [in_i] 70.25 [in_i] eCW1 ([facility]) Body weight kg eCW1 ([facility]) Body weight 204 [lb_av] 204 [lb_av] eCW1 ([facility]) Diastolic blood pressure 71 mm[Hg] 71 mm[Hg] eCW1 ([facility]) Systolic blood pressure 160 mm[Hg] 160 mm[Hg] e CW1 ([facility]) Body temperature 98.1 [degF] 98.1 [degF] eCW1 ( [facility]) Respiratory rate 20 /min 20 /min eCW1 ([facility]) Heart rate 65 /min 65 /min eCW1 ([facility]) Body mass index (BMI) [Ratio] 29.06 kg/m2 29.06 kg/m2 eCW1 ([facility]) Body height 70.25 [in_i] 70.25 [in_i] eCW1 ([facility]) Body weight kg eCW1 ([facility]) Body weight 204 [lb_av] 204 [lb_av] eCW1 ([facility]) Diastolic blood pressure 80 mm[Hg] 80 mm[Hg] eCW1 ([facility]) Systolic blood pressure 170 mm[Hg] 170 mm[Hg] e CW1 ([facility]) Body temperature 98.4 [degF] 98.4 [degF] eCW1 ( [facility]) Respiratory rate 18 /min 18 /min eCW1 ([facility]) Heart rate 68 /min 68 /min eCW1 ([facility]) Body mass index (BMI) [Ratio] 29.12 kg/m2 29.12 kg/m2 eCW1 ([facility]) Body height 70.25 [in_i] 70.25 [in_i] eCW1 ([facility]) Body weight 204.4 [lb_av] 204.4 [lb_av] eCW1 ([facility]) Diastolic blood pressure 75 mm[Hg] 75 mm[Hg] eCW1 ([facility]) Systolic blood pressure 172 mm[Hg] 172 mm[Hg] e CW1 ([facility]) Body temperature 98.0 [degF] 98.0 [degF] eCW1 ( [facility]) Respiratory rate 18 /min 18 /min eCW1 ([facility]) Heart rate 77 /min 77 /min eCW1 ([facility]) Body mass index (BMI) [Ratio] 29.74 kg/m2 29.74 kg/m2 eCW1 ([facility]) Body height 70.25 [in_us] 70.25 [in_us] eCW1 ([facility]) Body weight Measured 208.8 [lb_av] 208.8 [lb_av ] eCW1 ([facility]) Diastolic blood pressure 73 mm[Hg] 73 mm[Hg] eCW1 ([facility]) Systolic blood pressure 159 mm[Hg] 159 mm[Hg] e CW1 ([facility]) Body temperature 98.2 [degF] 98.2 [degF] eCW1 ( [facility]) Respiratory rate 18 /min 18 /min eCW1 ([facility]) Heart rate 76 /min 76 /min eCW1 ([facility]) Body mass index (BMI) [Ratio] 29.52 kg/m2 29.52 kg/m2 eCW1 ([facility]) Body height 70.25 [in_us] 70.25 [in_us] eCW1 ([facility]) Body weight Measured 207.2 [lb_av] 207.2 [lb_av ] eCW1 ([facility]) Diastolic blood pressure 88 mm[Hg] 88 mm[Hg] eCW1 ([facility]) Systolic blood pressure 159 mm[Hg] 159 mm[Hg] e CW1 ([facility]) Body temperature 98.8 [degF] 98.8 [degF] eCW1 ( [facility]) Respiratory rate 18 /min 18 /min eCW1 ([facility]) Heart rate 78 /min 78 /min eCW1 ([facility]) Body mass index (BMI) [Ratio] 28.92 kg/m2 28.92 kg/m2 W1 ([facility]) Body height 70.25 [in_us] 70.25 [in_us] eCW1 ([facility]) Body weight Measured 203 [lb_av] 203 [lb_av] eC W1 ([facility]) Diastolic blood pressure 93 mm[Hg] 93 mm[Hg] eCW1 ([facility]) Systolic blood pressure 189 mm[Hg] 189 mm[Hg] e CW1 ([facility]) Body temperature 97.6 [degF] 97.6 [degF] eCW1 ( [facility]) Respiratory rate 18 /min 18 /min eCW1 ([facility]) Heart rate 70 /min 70 /min eCW1 ([facility]) Body mass index (BMI) [Ratio] 28.97 kg/m2 28.97 kg/m2 eCW1 ([facility]) Body height 70.25 [in_us] 70.25 [in_us] eCW1 ([facility]) Body weight Measured 203.4 [lb_av] 203.4 [lb_av ] eCW1 ([facility]) Diastolic blood pressure 72 mm[Hg] 72 mm[Hg] eCW1 ([facility]) Systolic blood pressure 152 mm[Hg] 152 mm[Hg] e CW1 ([facility]) Body temperature 98.5 [degF] 98.5 [degF] eCW1 ( [facility]) Respiratory rate 16 /min 16 /min eCW1 ([facility]) Heart rate 72 /min 72 /min eCW1 ([facility]) Body mass index (BMI) [Ratio] 28.72 kg/m2 28.72 kg/m2 eCW1 ([facility]) Body height 70.25 [in_us] 70.25 [in_us] eCW1 ([facility]) Body weight Measured 201.6 [lb_av] 201.6 [lb_av ] eCW1 ([facility]) Diastolic blood pressure 80 mm[Hg] 80 mm[Hg] eCW1 ([facility]) Systolic blood pressure 176 mm[Hg] 176 mm[Hg] e CW1 ([facility]) Body temperature 97.7 [degF] 97.7 [degF] eCW1 ( [facility]) Respiratory rate 18 /min 18 /min eCW1 ([facility]) Heart rate 61 /min 61 /min eCW1 ([facility]) Body mass index (BMI) [Ratio] 29.20 kg/m2 29.20 kg/m2 eCW1 ([facility]) Body height 70.25 [in_us] 70.25 [in_us] eCW1 ([facility]) Body weight Measured 205 [lb_av] 205 [lb_av] eC W1 ([facility]) ID Date Data Source [id number] 07/17/2020 11:12:55 AM EDT [facility] Name Value Range Interpretation Code Description Data Source(s) Body height Measured 70.98 in 70.98 in [facility] WEIGHT RECORDED 199 lb 199 lb [facility] TRANSFER FROM [facility] ID Date Data Source [id number] 04/14/2020 02:56:31 PM EDT [facility] Hospital Name Value Range Interpretation Code Description Data Source(s) WEIGHT RECORDED 198.41 lb 198.41 lb [facility] Body height Measured 71 in 71 in [facility] Patient Treatment Plan of Care Planned Activity Planned Date Details Description Data Source (s) atorvastatin 40 MG Oral Tablet 11/15/2020 12:00:00 AM EST [facility] duloxetine 30 MG Delayed Release Oral Capsule 11/15/2020 12:00:00 A M EST [facility] Sucralfate 1000 MG Oral Tablet 11/15/2020 12:00:00 AM EST [facility] Linagliptin 5 MG Oral Tablet [Tradjenta] 11/02/2020 12:00:00 AM EST eCW1 ([facility]) Linagliptin 5 MG Oral Tablet [Tradjenta] 11/02/2020 12:00:00 AM EST eCW1 ([facility]) Linagliptin 5 MG Oral Tablet [Tradjenta] 11/02/2020 12:00:00 AM EST [facility] Linagliptin 5 MG Oral Tablet [Tradjenta] 11/02/2020 12:00:00 AM EST eCW1 ([facility]) Linagliptin 5 MG Oral Tablet [Tradjenta] 11/02/2020 12:00:00 AM EST eCW1 ([facility]) Linagliptin 5 MG Oral Tablet [Tradjenta] 11/02/2020 12:00:00 AM EST eCW1 ([facility]) Linagliptin 5 MG Oral Tablet [Tradjenta] 11/02/2020 12:00:00 AM EST eCW1 ([facility]) Linagliptin 5 MG Oral Tablet [Tradjenta] 11/02/2020 12:00:00 AM EST eCW1 ([facility]) Linagliptin 5 MG Oral Tablet [Tradjenta] 11/02/2020 12:00:00 AM EST eCW1 ([facility]) Linagliptin 5 MG Oral Tablet [Tradjenta] 11/02/2020 12:00:00 AM EST eCW1 ([facility]) Aspirin 81 MG Delayed Release Oral Tablet 10/10/2020 12:00:00 AM ES [facility] ferrous sulfate 325 MG Oral Tablet 10/10/2020 12:00:00 AM EST [facility] tramadol hydrochloride 50 MG Oral Tablet 09/19/2020 12:00:00 AM EST [facility] Tramadol HCl 100 MG 09/19/2020 12:00:00 AM EST eCW1 ([facility]) Tramadol HCl 100 MG 09/19/2020 12:00:00 AM EST eCW1 ([facility]) Tramadol HCl 100 MG 09/19/2020 12:00:00 AM EST eCW1 ([facility]) Tramadol HCl 100 MG 09/19/2020 12:00:00 AM EST eCW1 ([facility]) Tramadol HCl 100 MG 09/19/2020 12:00:00 AM EST eCW1 ([facility]) Tramadol HCl 100 MG 09/19/2020 12:00:00 AM EST eCW1 ([facility]) Tramadol HCl 100 MG 09/19/2020 12:00:00 AM EST eCW1 ([facility]) Tramadol HCl 100 MG 09/19/2020 12:00:00 AM EST eCW1 ([facility]) Tramadol HCl 100 MG 09/19/2020 12:00:00 AM EST eCW1 ([facility]) Tramadol HCl 100 MG 09/19/2020 12:00:00 AM EST eCW1 ([facility]) Tramadol HCl 100 MG 09/19/2020 12:00:00 AM EST eCW1 ([facility]) Tramadol HCl 100 MG 09/19/2020 12:00:00 AM EST eCW1 ([facility]) Tramadol HCl 100 MG 09/19/2020 12:00:00 AM EST eCW1 ([facility]) Tramadol HCl 100 MG 09/19/2020 12:00:00 AM EST eCW1 ([facility]) Tramadol HCl 100 MG 09/19/2020 12:00:00 AM EST eCW1 ([facility]) Escitalopram 5 MG Oral Tablet 09/12/2020 12:00:00 AM EST eCW1 ([facility]) Escitalopram 5 MG Oral Tablet 09/12/2020 12:00:00 AM EST eCW1 ([facility]) apixaban 5 MG Oral Tablet [Eliquis] 08/28/2020 12:00:00 AM EST eCW1 ([facility]) doxycycline hyclate 100 MG Oral Tablet 08/28/2020 12:00:00 AM EST eCW1 ([facility]) apixaban 5 MG Oral Tablet [Eliquis] 08/28/2020 12:00:00 AM EST eCW1 ([facility]) doxycycline hyclate 100 MG Oral Tablet 08/28/2020 12:00:00 AM EST eCW1 ([facility]) apixaban 5 MG Oral Tablet [Eliquis] 08/28/2020 12:00:00 AM EST eCW1 ([facility]) doxycycline hyclate 100 MG Oral Tablet 08/28/2020 12:00:00 AM EST eCW1 ([facility]) apixaban 5 MG Oral Tablet [Eliquis] 08/28/2020 12:00:00 AM EST eCW1 ([facility]) doxycycline hyclate 100 MG Oral Tablet 08/28/2020 12:00:00 AM EST eCW1 ([facility]) Lisinopril 10 MG Oral Tablet 07/07/2020 12:00:00 AM [facility] Ibuprofen 400 MG Oral Tablet 07/04/2020 09:38:31 PM [facility] dextrose 50 % IV solution 25 mL 07/04/2020 09:29:30 PM [facility] Glucagon 1 MG Injection 07/04/2020 09:29:30 PM [facility] Glucose 0.417 MG/MG Oral Gel 07/04/2020 09:29:30 PM [facility] oxyCODONE (ROXICODONE) immediate release tablet 5 mg 020 09:23:50 PM [facility] Silver-Carboxymethylcellulose (AQUACEL-AG HYDROFIBER 3 /4"X18") 3/4"X18" MISC 06/20/2020 12:00:[address] [facility] Aquacel-Ag Hydrofiber 3/4"X18" External 06/20/2020 12:00:00 AM [facility] gabapentin 100 MG Oral Capsule 06/20/2020 12:00:00 AM [facility] Magnesium Oxide 400 MG Oral Tablet 04/12/2020 12:00:[address] [facility] pantoprazole 40 MG Delayed Release Oral Tablet 04/12/2020 12:00:[address] [facility] Tamsulosin hydrochloride 0.4 MG Oral Capsule 04/12/2020 12:00:[address] [facility] Tamsulosin hydrochloride 0.4 MG Oral Capsule 04/12/2020 12:00:00 AM [facility] pantoprazole 40 MG Delayed Release Oral Tablet 04/12/2020 12:00:00 AM [facility] Magnesium Oxide 400 MG Oral Tablet 04/12/2020 12:00:00 AM [facility] Lisinopril 10 MG Oral Tablet 04/12/2020 12:00:00 AM [facility] MG Oral Tablet 04/11/2020 12:00:[address] [facility].6 MG Oral Tablet 04/11/2020 12:00:00 AM [facility] Rivaroxaban 2.5 MG Oral Tablet (XARELTO) 04/11/2020 12:00:00 AM [facility] Oxycodone Hydrochloride 5 MG Oral Tablet 04/11/2020 12:00:00 AM [facility] Docusate Sodium 100 MG Oral Capsule 04/11/2020 12:00:00 AM [facility] Bisacodyl 10 MG Rectal Suppository 04/11/2020 12:00:00 AM [facility] gabapentin 100 MG Oral Capsule 04/11/2020 12:00:00 AM [facility] pantoprazole (PROTONIX) injection 40 mg 04/03/2020 07:30:00 AM [facility] dextrose 50 % IV solution 25 mL 04/02/2020 12:06:19 PM [facility] Glucagon 1 MG Injection 04/02/2020 12:06:19 PM [facility] Glucose 0.417 MG/MG Oral Gel 04/02/2020 12:06:19 PM [facility] Lisinopril 5 MG Oral Tablet 03/17/2020 12:00:00 AM EDT [facility] ([facility]) gabapentin 300 MG Oral Capsule 02/29/2020 12:00:00 AM EDT [facility] ([facility]) gabapentin 300 MG Oral Capsule 02/29/2020 12:00:00 AM EDT [facility] ([facility]) Cephalexin 500 MG Oral Capsule 02/22/2020 12:00:00 AM EDT eC ([facility]) Metformin hydrochloride 500 MG Oral Tablet 10/22/2019 12:00:00 AM E [facility] Glipizide 5 MG Oral Tablet 09/21/2019 12:00:00 AM EST [facility] glucose blood (ACCU-CHEK VAHE) test strip 03/01/2015 12:00:00 AM E [facility] Lisinopril 5 MG Oral Tablet [facility] gabapentin 300 MG Oral Capsule [facility]
[2020-12-05 18:35] LABS: HEMATOCRIT 22.3 % (42.0-52.0); MEAN CORPUSCULAR HEMOGLOBIN 28.9 pg (27.0-33.0); MEAN CORPUSCULAR HGB CONC 28.3 g/dl (32.0-36.5); MEAN CORPUSCULAR VOLUME 102.3 fl (80.0-96.0); PLATELET COUNT, AUTOMATED 271 10^3/uL (150-450); RED BLOOD COUNT 2.18 10^6/uL (4.30-6.10); WHITE BLOOD COUNT 4.3 10^3/uL (4.0-10.0)
[2020-12-05 18:37] LABS: HEMOGLOBIN 6.3 g/dl (13.5-17.5)
[2020-12-05 18:48] LABS: INR 1.24; PROTHROMBIN TIME 15.9 SECONDS (12.5-14.3)
[2020-12-05 18:53] LABS: LYMPHOCYTES 31 % (16-44); MONOCYTES 4 % (0-5); NEUTROPHILS 65 % (28-66)
[2020-12-05 18:54] LABS: ANISOCYTOSIS 1+; HYPOCHROMASIA 2+
[2020-12-05 18:55] LABS: PLATELET ESTIMATE NORMAL (NORMAL)
[2020-12-05 19:03] LABS: BLOOD UREA NITROGEN 28 MG/DL (7-18); CALCIUM LEVEL 8.8 MG/DL (8.8-10.2); CARBON DIOXIDE LEVEL 26 MEQ/L (21-32); CHLORIDE LEVEL 102 MEQ/L (98-107); CREATININE FOR GFR 1.14 MG/DL (0.70-1.30); GLOMERULAR FILTRATION RATE > 60.0 (>35); GLUCOSE, FASTING 156 MG/DL (70-100); POTASSIUM SERUM 4.5 MEQ/L (3.5-5.1); SODIUM LEVEL 136 MEQ/L (136-145)
[2020-12-05] MEDS ORDERED: SUCR1TAB56 PO (19:25)
[2020-12-05] MEDS ORDERED: ATOR40TA75 PO (19:25)
[2020-12-05] MEDS ORDERED: METO50TA7 PO (19:25)
[2020-12-05] MEDS ORDERED: PANT-23 PO (19:25)
[2020-12-05] MEDS ORDERED: FERR325T3 PO (19:25)
[2020-12-05] MEDS ORDERED: ECOT81TA5 PO (19:25)
[2020-12-05] MEDS ORDERED: ELIQ5TAB PO (19:25)
[2020-12-05] MEDS ORDERED: DULO30CA9 PO (19:25)
[2020-12-05] MEDS ORDERED: FLOM0.4C39 PO (19:25)
[2020-12-05] MEDS ORDERED: GLIP5TAB8 PO (19:25)
[2020-12-05 19:50] LABS: RSV AMPLIFICATION NEGATIVE (NEGATIVE)
--- NOTE | 2020-12-05 19:55 | ECGEPIP ---
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
[2020-12-05 20:07] VITALS: BP 128/64
[2020-12-05 20:22] VITALS: BP 123/81
--- OUTSIDE RECORDS SUMMARY | 2020-12-05 20:44 | CCD ---
Author Author [facility] Organization [facility] Address Unknown Phone Unavailable Care Team Providers Care Procurement Internship Name Role Phone Von BECK MD Unavailable [...] Unavailable Deshpande, L Beth RPA Unavailable Unavailable Desphande, L Beth RPA Unavailable Unavailable Deshpande, L [...] B Hiren MARLOW Unavailable Unavailable Fish, B Hirne MARLOW Unavailable Unavailable Fish, B Hiren MARLOW [...] is protected by Article 27-F of the [facility] Public Health law. If you continue you may have access to information: Regarding HIV / AIDS; Provided by facilities licensed or operated by the [facility] Office of Mental Health; or Provided by the [facility] Office for People With Developmental Disabilities. If such information is present, then the following [facility] mandated warning applies: This information has [...] law may result in a fine or detention sentence or both. A general authorization for the release of medical or other information is NOT sufficient authorization for further disc losure. Allergies and Adverse Reactions Type Description Substance Reaction Status Data Source(s ) Drug Class NO KNOWN ALLERGIES NO KNOWN [facility] Family History Family Member Name Family Member Gender Family Member Status Date o f Status Description Data Source(s) Unknown Male Problem MEDENT ([facility]) Unknown Unknown Problem [facility] ([facility] Unknown Female Problem MEDENT ([facility], ) Encounters Encounter Providers Location Date Indications Data Source(s ) Outpatient Attender: LYLE Hayes errer: LYLE BECK MDConsultant: LYLE BECK MD 12/05/2020 01:17:00 PM EST - 12/05/2020 01:27:00 PM EST [facility] Unknown [address] [facility] [address] 11/23/2020 12:00:00 AM EST eCW1 ([facility]) Unknown [address] [facility] [address] 11/21/2020 12:00:00 AM EST eCW1 ([facility]) Outpatient Attender: Rochelle ONEAL SJClaude.[email or web address]-SJP.[email or web address] 12:00:00 AM EST - 11/17/2020 03:52:37 PM EST [facility] Unknown [address] [facility] [address] 11/13/2020 12:00:00 AM EST eCW1 ([facility]) Outpatient [address] [facility] [address] 11/09/2020 12:00:00 AM EST eCW1 ([facility]) Unknown [address] [facility] [place] [address] 11/09/2020 12:00:00 AM EST eCW1 ([facility]) Unknown [address] [facility] [address] 11/07/2020 12:00:00 AM EST eCW1 ([facility]) Unknown [address] [facility] [address] 10/31/2020 12:00:00 AM EST eCW1 ([facility]) Unknown [address] [facility] [place] [address] 10/30/2020 12:00:00 AM EST eCW1 ([facility]) Unknown [address] [facility] [place] [address] 10/26/2020 12:00:00 AM EST eCW1 ([facility]) Office Visit Attender: Beth Escalante/Gerald/Benji/Benjy ford 10/24/2020 10:45:00 AM EST MEDENT ([facility]) [place] [address] [facility] [address] 10/24/2020 12:00:00 AM EST eCW1 ([facility]) Outpatient [address] [facility] [address] 10/19/2020 12:00:00 AM EST eCW1 ([facility]) Unknown [address] [facility] [address] 10/18/2020 12:00:00 AM EST eCW1 ([facility]) Unknown [address] [facility] [address] 10/11/2020 12:00:00 AM EST eCW1 ([facility]) Unknown [address] [facility] [place] [address] 10/10/2020 12:00:00 AM EST eCW1 ([facility]) Unknown [address] [facility] [address] 10/03/2020 12:00:00 AM EST eCW1 ([facility]) Unknown [address] [facility] [address] 10/02/2020 12:00:00 AM EST eCW1 ([facility]) Unknown [address] [facility] [address] 09/28/2020 12:00:00 AM EST eCW1 ([facility]) Unknown [address] [facility] [address] 09/26/2020 12:00:00 AM EST eCW1 ([facility]) Unknown [address] [facility] [address] 09/25/2020 12:00:00 AM EST eCW1 ([facility]) Unknown [address] [facility] [place] [address] 09/19/2020 12:00:00 AM EST eCW1 ([facility]) Unknown [address] [facility] [address] 09/18/2020 12:00:00 AM EST eCW1 ([facility]) Unknown [address] [facility] [address] 09/16/2020 12:00:00 AM EST eCW1 ([facility]) Unknown [address] [facility] [place] [address] 09/13/2020 12:00:00 AM EST eCW1 ([facility]) Outpatient [address] [facility] [address] 09/12/2020 12:00:00 AM EST eCW1 ([facility]) Outpatient [address] [facility] [place] [address] 09/12/2020 12:00:00 AM EST eCW1 ([facility]) Outpatient [address] [facility] [place] [address] 09/07/2020 12:00:00 AM EST eCW1 ([facility]) ([id number]) For Template Castellanos [address] [place] [address] 09/05/2020 12:00:00 AM EST eCW1 ([facility]) Unknown [address] [facility] [address] 08/29/2020 12:00:00 AM EST eCW1 ([facility]) Unknown [address] [facility] [address] 08/23/2020 12:00:00 AM EST eCW1 ([facility]) Unknown [address] [facility] [place] [address] 08/22/2020 12:00:00 AM EST eCW1 ([facility]) Outpatient [address] [facility] [place] [address] 08/22/2020 12:00:00 AM EST eCW1 ([facility]) Outpatient [address] [facility] [place] [address] 08/22/2020 12:00:00 AM EST eCW1 ([facility]) Unknown [address] [facility] [address] 08/16/2020 12:00:00 AM EDT eCW1 ([facility]) Outpatient [address] [facility] [address] 08/15/2020 12:00:00 AM EDT eCW1 ([facility]) ([id number]) For Template Castell[facility] [address] [place] [address] 08/08/2020 12:00:00 AM EDT eCW1 ([facility]) ([id number]) For Template Castellanos [address] [place] [address] 08/01/2020 12:00:00 AM EDT eCW1 ([facility]) ([id number]) For Template Castellanos [address] [place] [address] 07/25/2020 12:00:00 AM EDT eCW1 ([facility]) (WND NP120) New Patient 120 Min [address] [place] [address] 07/18/2020 12:00:00 AM EDT eCW1 ([facility]) Unknown [address] [facility] [address] 07/18/2020 12:00:00 AM EDT eCW1 ([facility]) Unknown [address] [facility] [place] [address] 07/18/2020 12:00:00 AM EDT eCW1 ([facility]) Inpatient Attender: YOLI Longoria DAdmitter: YOLI MCGOWAN MDConsultant: YOLI MCGOWAN MD [id number] 07/04/2020 12:00:00 AM EDT - 07/07/2020 06:34:00 PM EDT 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 [facility] [address] [facility] [address] 06/29/2020 12:00:00 AM EDT eCW1 ([facility]) Outpatient [address] [facility], [facility] [address] 05/12/2020 12:00:00 AM EDT [facility] Outpatient [address] [facility], [facility] [address] 05/05/2020 12:00:00 AM EDT eCW1 [facility]) Unknown [address] [facility] [address] 05/04/2020 12:00:00 AM EDT eCW1 ([facility]) Outpatient Attender: YOLI MCGOWAN MD 05/02/2020 11:00: 00 AM EDT [facility] Outpatient [address] [facility] [address] 04/27/2020 12:00:00 AM EDT eCW1 ([facility]) Outpatient Referrer: Hiren Mcneil MD 04/12/2020 02:11:00 PM EDT [facility] Unknown [address] [facility] [address] 04/04/2020 12:00:00 AM EDT eCW1 ([facility]) Inpatient Attender: YOLI Longoria DAttender: Chiki Cheek MDAdmitter: YOLI MCGOWAN MDReferrer: YOLI MCGOWAN MDConsultant: YOLI MCGOWAN MD [id number] 04/02/2020 12:00:00 AM EDT - 04/12/2020 12:36:00 PM EDT Unspecified atherosclerosis of [place]osh[place] arteries of extremities, unspecified extremity [facility] Unspecified atherosclerosis of [place]osh[place] ar teries of extremities, unspecified extremity Patient discharged. ([id number]) For Template Castell[facility] [address] [place] [address] 03/30/2020 12:00:00 AM EDT eCW1 ([facility]) Unknown [address] [facility] [address] 03/27/2020 12:00:00 AM EDT [facility]CW1 [facility] Unknown [address] [facility] [address] 03/24/2020 12:00:00 AM EDT eCW1 ([facility]) Unknown [address] [facility] [address] 03/24/2020 12:00:00 AM EDT eCW1 ([facility]) Unknown [address] [facility], [place] [address] 03/24/2020 12:00:00 AM EDT eCW1 ([facility]) (WND NP120) New Patient 120 Min [address] [place] [address] 03/23/2020 12:00:00 AM EDT eCW1 ([facility]) Outpatient Attender: Hiren Mcneil MD Physical Therapy 03/22/2020 0 2:15:00 PM EDT MEDENT ([facility]) [facility] [address] [facility] [address] 03/17/2020 12:00:00 AM EDT eCW1 ([facility]) [facility] [address] [facility] [address] 03/17/2020 12:00:00 AM EDT eCW1 ([facility]) Outpatient [address] [facility] [address] 03/16/2020 12:00:00 AM EDT eCW1 ([facility]) [facility] [address] [facility] [address] 03/09/2020 12:00:00 AM EDT eCW1 ([facility]) [facility] [address] [facility] [address] 03/07/2020 12:00:00 AM EDT eCW1 ([facility]) [facility] [address] [facility] [address] 03/07/2020 12:00:00 AM EDT eCW1 ([facility]) [facility] [address] [facility] [address] 02/29/2020 12:00:00 AM EDT eCW1 ([facility]) [facility] [address] [facility] [address] 02/25/2020 12:00:00 AM EDT eCW1 ([facility]) [facility] [place] [address] [facility] [address] 02/22/2020 12:00:00 AM EDT eCW1 ([facility]) [facility] [address] [facility] [address] 02/22/2020 12:00:00 AM EDT eCW1 ([facility]) Outpatient Attender: Hiren Mcneil MD Physical Therapy 12/31/2019 0 3:30:00 PM EDT MEDENT ([facility]) [facility] [address] [place] [address] 12/24/2019 12:00:00 AM EST eCW1 ([facility]) [facility] [address] [place] [address], [place] [address] 12/23/2019 12:00:00 AM EST eCW1 ([facility]) Outpatient Referrer: Hiren Mcneil MD 11/19/2019 07:15:00 AM EST [facility] [address] [place] [address], [place] [address] 11/02/2019 12:00:00 AM EST eCW1 ([facility]) Outpatient Attender: Paulie Carter MD SJP.[email or web address]-SJP.MICHELLE 10/20 12:00:00 AM EST [facility] Immunizations Vaccine Date Status Description Data Source(s) IIV3. This is one of two codes replacing CVX 15, which is being retired. 08/01/2020 03:23:00 PM EDT completed eCW1 ([facility]) IIV3. This is one of two codes replacing CVX 15, which is being retired. 08/01/2020 03:23:00 PM EDT completed eCW1 ([facility]) IIV3. This is one of two codes replacing CVX 15, which is being retired. 08/01/2020 03:23:00 PM EDT completed eCW1 ([facility]) IIV3. This is one of two codes replacing CVX 15, which is being retired. 08/01/2020 03:23:00 PM EDT completed eCW1 ([facility]) IIV3. This is one of two codes replacing CVX 15, which is being retired. 08/01/2020 03:23:00 PM EDT completed eCW1 ([facility]) IIV3. This is one of two codes replacing CVX 15, which is being retired. 08/01/2020 03:23:00 PM EDT completed eCW1 ([facility]) IIV3. This is one of two codes replacing CVX 15, which is being retired. 08/01/2020 03:23:00 PM EDT completed eCW1 ([facility]) IIV3. This is one of two codes replacing CVX 15, which is being retired. 08/01/2020 03:23:00 PM EDT completed eCW1 ([facility]) IIV3. This is one of two codes replacing CVX 15, which is being retired. 08/01/2020 03:23:00 PM EDT completed eCW1 ([facility]) IIV3. This is one of two codes replacing CVX 15, which is being retired. 08/01/2020 03:23:00 PM EDT completed eCW1 ([facility]) IIV3. This is one of two codes replacing CVX 15, which is being retired. 08/01/2020 03:23:00 PM EDT completed eCW1 ([facility]) IIV3. This is one of two codes replacing CVX 15, which is being retired. 08/01/2020 03:23:00 PM EDT completed eCW1 ([facility]) IIV3. This is one of two codes replacing CVX 15, which is being retired. 08/01/2020 03:23:00 PM EDT completed eCW1 ([facility]) IIV3. This is one of two codes replacing CVX 15, which is being retired. 08/01/2020 03:23:00 PM EDT completed eCW1 ([facility]) IIV3. This is one of two codes replacing CVX 15, which is being retired. 08/01/2020 03:23:00 PM EDT completed eCW1 ([facility]) IIV3. This is one of two codes replacing CVX 15, which is being retired. 08/01/2020 03:23:00 PM EDT completed eCW1 ([facility]) IIV3. This is one of two codes replacing CVX 15, which is being retired. 08/01/2020 03:23:00 PM EDT completed eCW1 ([facility]) IIV3. This is one of two codes replacing CVX 15, which is being retired. 08/01/2020 03:23:00 PM EDT completed eCW1 ([facility]) IIV3. This is one of two codes replacing CVX 15, which is being retired. 08/01/2020 03:23:00 PM EDT completed eCW1 ([facility]) IIV3. This is one of two codes replacing CVX 15, which is being retired. 08/01/2020 03:23:00 PM EDT completed eCW1 ([facility]) IIV3. This is one of two codes replacing CVX 15, which is being retired. 08/01/2020 03:23:00 PM EDT completed eCW1 ([facility]) IIV3. This is one of two codes replacing CVX 15, which is being retired. 08/01/2020 03:23:00 PM EDT completed eCW1 ([facility]) IIV3. This is one of two codes replacing CVX 15, which is being retired. 08/01/2020 03:23:00 PM EDT completed eCW1 ([facility]) IIV3. This is one of two codes replacing CVX 15, which is being retired. 08/01/2020 03:23:00 PM EDT completed eCW1 ([facility]) IIV3. This is one of two codes replacing CVX 15, which is being retired. 08/01/2020 03:23:00 PM EDT completed eCW1 ([facility]) IIV3. This is one of two codes replacing CVX 15, which is being retired. 08/01/2020 03:23:00 PM EDT completed eCW1 ([facility]) IIV3. This is one of two codes replacing CVX 15, which is being retired. 08/01/2020 03:23:00 PM EDT completed eCW1 ([facility]) IIV3. This is one of two codes replacing CVX 15, which is being retired. 08/01/2020 03:23:00 PM EDT completed eCW1 ([facility]) IIV3. This is one of two codes replacing CVX 15, which is being retired. 08/01/2020 03:23:00 PM EDT completed eCW1 ([facility]) IIV3. This is one of two codes replacing CVX 15, which is being retired. 08/01/2020 03:23:00 PM EDT completed eCW1 ([facility]) IIV3. This is one of two codes replacing CVX 15, which is being retired. 08/01/2020 03:23:00 PM EDT completed eCW1 ([facility]) IIV3. This is one of two codes replacing CVX 15, which is being retired. 08/01/2020 03:23:00 PM EDT completed eCW1 ([facility]) IIV3. This is one of two codes replacing CVX 15, which is being retired. 08/01/2020 03:23:00 PM EDT completed eCW1 ([facility]) IIV3. This is one of two codes replacing CVX 15, which is being retired. 08/01/2020 03:23:00 PM EDT completed eCW1 ([facility]) IIV3. This is one of two codes replacing CVX 15, which is being retired. 08/01/2020 03:23:00 PM EDT completed eCW1 ([facility]) IIV3. This is one of two codes replacing CVX 15, which is being retired. 08/01/2020 03:23:00 PM EDT completed eCW1 ([facility]) IIV3. This is one of two codes replacing CVX 15, which is being retired. 08/01/2020 03:23:00 PM EDT completed eCW1 ([facility]) IIV3. This is one of two codes replacing CVX 15, which is being retired. 08/01/2020 03:23:00 PM EDT completed eCW1 ([facility]) IIV3. This is one of two codes replacing CVX 15, which is being retired. 08/01/2020 03:23:00 PM EDT completed eCW1 ([facility]) IIV3. This is one of two codes replacing CVX 15, which is being retired. 08/01/2020 03:23:00 PM EDT completed eCW1 ([facility]) IIV3. This is one of two codes replacing CVX 15, which is being retired. 08/01/2020 02:55:00 PM EDT completed eCW1 ([facility]) IIV3. This is one of two codes replacing CVX 15, which is being retired. 08/01/2020 02:55:00 PM EDT completed eCW1 ([facility]) IIV3. This is one of two codes replacing CVX 15, which is being retired. 08/01/2020 02:55:00 PM EDT completed eCW1 ([facility]) IIV3. This is one of two codes replacing CVX 15, which is being retired. 08/01/2020 02:55:00 PM EDT completed eCW1 ([facility]) IIV3. This is one of two codes replacing CVX 15, which is being retired. 08/01/2020 02:55:00 PM EDT completed eCW1 ([facility]) IIV3. This is one of two codes replacing CVX 15, which is being retired. 08/01/2020 02:55:00 PM EDT completed eCW1 ([facility]) IIV3. This is one of two codes replacing CVX 15, which is being retired. 08/01/2020 02:55:00 PM EDT completed eCW1 ([facility]) IIV3. This is one of two codes replacing CVX 15, which is being retired. 08/01/2020 02:55:00 PM EDT completed eCW1 ([facility]) IIV3. This is one of two codes replacing CVX 15, which is being retired. 08/01/2020 02:55:00 PM EDT completed eCW1 ([facility]) IIV3. This is one of two codes replacing CVX 15, which is being retired. 08/01/2020 02:55:00 PM EDT completed eCW1 ([facility]) IIV3. This is one of two codes replacing CVX 15, which is being retired. 08/01/2020 02:55:00 PM EDT completed eCW1 ([facility]) IIV3. This is one of two codes replacing CVX 15, which is being retired. 08/01/2020 02:55:00 PM EDT completed eCW1 ([facility]) IIV3. This is one of two codes replacing CVX 15, which is being retired. 08/01/2020 02:55:00 PM EDT completed eCW1 ([facility]) IIV3. This is one of two codes replacing CVX 15, which is being retired. 08/01/2020 02:55:00 PM EDT completed eCW1 ([facility]) IIV3. This is one of two codes replacing CVX 15, which is being retired. 08/01/2020 02:55:00 PM EDT completed eCW1 ([facility]) IIV3. This is one of two codes replacing CVX 15, which is being retired. 08/01/2020 02:55:00 PM EDT completed eCW1 ([facility]) IIV3. This is one of two codes replacing CVX 15, which is being retired. 08/01/2020 02:55:00 PM EDT completed eCW1 ([facility]) IIV3. This is one of two codes replacing CVX 15, which is being retired. 08/01/2020 02:55:00 PM EDT completed eCW1 ([facility]) IIV3. This is one of two codes replacing CVX 15, which is being retired. 08/01/2020 02:55:00 PM EDT completed eCW1 ([facility]) IIV3. This is one of two codes replacing CVX 15, which is being retired. 08/01/2020 02:55:00 PM EDT completed eCW1 ([facility]) IIV3. This is one of two codes replacing CVX 15, which is being retired. 08/01/2020 02:55:00 PM EDT completed eCW1 ([facility]) IIV3. This is one of two codes replacing CVX 15, which is being retired. 08/01/2020 02:55:00 PM EDT completed eCW1 ([facility]) IIV3. This is one of two codes replacing CVX 15, which is being retired. 08/01/2020 02:55:00 PM EDT completed eCW1 ([facility]) IIV3. This is one of two codes replacing CVX 15, which is being retired. 08/01/2020 02:55:00 PM EDT completed eCW1 ([facility]) IIV3. This is one of two codes replacing CVX 15, which is being retired. 08/01/2020 02:55:00 PM EDT completed eCW1 ([facility]) IIV3. This is one of two codes replacing CVX 15, which is being retired. 08/01/2020 02:55:00 PM EDT completed eCW1 ([facility]) IIV3. This is one of two codes replacing CVX 15, which is being retired. 08/01/2020 02:55:00 PM EDT completed eCW1 ([facility]) IIV3. This is one of two codes replacing CVX 15, which is being retired. 08/01/2020 02:55:00 PM EDT completed eCW1 ([facility]) IIV3. This is one of two codes replacing CVX 15, which is being retired. 08/01/2020 02:55:00 PM EDT completed eCW1 ([facility]) IIV3. This is one of two codes replacing CVX 15, which is being retired. 08/01/2020 02:55:00 PM EDT completed eCW1 ([facility]) IIV3. This is one of two codes replacing CVX 15, which is being retired. 08/01/2020 02:55:00 PM EDT completed eCW1 ([facility]) IIV3. This is one of two codes replacing CVX 15, which is being retired. 08/01/2020 02:55:00 PM EDT completed eCW1 ([facility]) IIV3. This is one of two codes replacing CVX 15, which is being retired. 08/01/2020 02:55:00 PM EDT completed eCW1 ([facility]) IIV3. This is one of two codes replacing CVX 15, which is being retired. 08/01/2020 02:55:00 PM EDT completed eCW1 ([facility]) IIV3. This is one of two codes replacing CVX 15, which is being retired. 08/01/2020 02:55:00 PM EDT completed eCW1 ([facility]) IIV3. This is one of two codes replacing CVX 15, which is being retired. 08/01/2020 02:55:00 PM EDT completed eCW1 ([facility]) IIV3. This is one of two codes replacing CVX 15, which is being retired. 08/01/2020 02:55:00 PM EDT completed eCW1 ([facility]) IIV3. This is one of two codes replacing CVX 15, which is being retired. 08/01/2020 02:55:00 PM EDT completed eCW1 ([facility]) IIV3. This is one of two codes replacing CVX 15, which is being retired. 08/01/2020 02:55:00 PM EDT completed eCW1 ([facility]) IIV3. This is one of two codes replacing CVX 15, which is being retired. 08/01/2020 02:55:00 PM EDT completed eCW1 ([facility]) Medications Medication Brand Name Start Date Product Form Dose Route Admi nistrative Instructions Pharmacy Instructions Status Indications Reaction Description Data Source(s) Sucralfate 1000 MG Oral Tablet sucralfate (CARAFATE) 1 g tablet sucralfate (CARAFATE) 1 g tablet 11/15/2020 12:00:00 AM EST a ctive [facility] atorvastatin 40 MG Oral Tablet atorvastatin (LIPITOR) 40 MG tablet atorvastatin (LIPITOR) 40 MG tablet 11/15/2020 12:00:00 AM EST 40 mg Oral active Take 40 mg by mouth daily [facility] duloxetine 30 MG Delayed Release Oral Ca psule DULoxetine (CYMBALTA) 30 MG capsule DULoxetine (CYMBALTA) 30 MG capsule 11/15/2020 12:00:00 AM EST active [facility] Linagliptin 5 MG Oral Tablet [Tradjenta] Tradjenta 5 MG Trad jenta 5 MG 11/02/2020 12:00:00 AM EST 1.0 {tablet} active Tradjenta 5 MG eCW1 ([facility]) Linagliptin 5 MG Oral Tablet [Tradjenta] Tradjenta 5 MG Trad jenta 5 MG 11/02/2020 12:00:00 AM EST 1.0 {tablet} active Tradjenta 5 MG eCW1 ([facility]) Linagliptin 5 MG Oral Tablet [Tradjenta] Tradjenta 5 MG Trad jenta 5 MG 11/02/2020 12:00:00 AM EST 1.0 {tablet} active Tradjenta 5 MG eCW1 ([facility]) Linagliptin 5 MG Oral Tablet [Tradjenta] Tradjenta 5 MG Trad jenta 5 MG 11/02/2020 12:00:00 AM EST 1.0 {tablet} active Tradjenta 5 MG eCW1 ([facility]) Linagliptin 5 MG Oral Tablet [Tradjenta] Tradjenta 5 MG Trad jenta 5 MG 11/02/2020 12:00:00 AM EST 1.0 {tablet} active Tradjenta 5 MG eCW1 ([facility]) Linagliptin 5 MG Oral Tablet [Tradjenta] Tradjenta 5 MG Trad jenta 5 MG 11/02/2020 12:00:00 AM EST 1.0 {tablet} active Tradjenta 5 MG eCW1 ([facility]) Linagliptin 5 MG Oral Tablet [Tradjenta] Tradjenta 5 MG Trad jenta 5 MG 11/02/2020 12:00:00 AM EST 1.0 {tablet} active Tradjenta 5 MG eCW1 ([facility]) Linagliptin 5 MG Oral Tablet [Tradjenta] Tradjenta 5 MG Trad jenta 5 MG 11/02/2020 12:00:00 AM EST 1.0 {tablet} active Tradjenta 5 MG eCW1 ([facility]) Linagliptin 5 MG Oral Tablet [Tradjenta] TRADJENTA 5 M G TABS TRADJENTA 5 MG TABS 11/02/2020 12:00:00 AM EST 1 {tbl} Oral active Take 1 tablet by mouth daily [facility] Linagliptin 5 MG Oral Tablet [Tradjenta] Tradjenta 5 MG Trad jenta 5 MG 11/02/2020 12:00:00 AM EST 1.0 {tablet} active Tradjenta 5 MG eCW1 ([facility]) ferrous sulfate 325 MG Oral Tablet Ferrous Sulfate (IR ON) 325 (65 Fe) MG TABS Ferrous Sulfate (IRON) 325 (65 Fe) MG TABS 10/10/2020 12:00:00 AM EST 1 {tbl} Oral active Take 1 tablet by ceci th 2 (two) times a day [facility] Aspirin 81 MG Delayed Release Oral Tablet ASPIRIN LOW DOSE 81 MG EC tablet ASPIRIN LOW DOSE 81 MG EC tablet 10/10/2020 12:00:00 AM EST 81 mg Oral active Take 81 mg by mouth daily [facility] Tramadol HCl 100 MG Tramadol HCl 100 MG 09/19/2020 12:00:00 AM EST 1.0 {tablet_as_needed} suspended Tramadol HC l 100 MG eCW1 ([facility]) Tramadol HCl 100 MG Tramadol HCl 100 MG 09/19/2020 12:00:00 AM EST 1.0 {tablet_as_needed} active Tramadol HCl 100 MG eCW1 ([facility]) Tramadol HCl 100 MG Tramadol HCl 100 MG 09/19/2020 12:00:00 AM EST 1.0 {tablet_as_needed} active Tramadol HCl 100 MG eCW1 ([facility]) Tramadol HCl 100 MG Tramadol HCl 100 MG 09/19/2020 12:00:00 AM EST 1.0 {tablet_as_needed} suspended Tramadol HC l 100 MG eCW1 ([facility]) Tramadol HCl 100 MG Tramadol HCl 100 MG 09/19/2020 12:00:00 AM EST 1.0 {tablet_as_needed} active Tramadol HCl 100 MG eCW1 ([facility]) Tramadol HCl 100 MG Tramadol HCl 100 MG 09/19/2020 12:00:00 AM EST 1.0 {tablet_as_needed} suspended Tramadol HC l 100 MG eCW1 ([facility]) Tramadol HCl 100 MG Tramadol HCl 100 MG 09/19/2020 12:00:00 AM EST 1.0 {tablet_as_needed} active Tramadol HCl 100 MG eCW1 ([facility]) Tramadol HCl 100 MG Tramadol HCl 100 MG 09/19/2020 12:00:00 AM EST 1.0 {tablet_as_needed} active Tramadol HCl 100 MG eCW1 ([facility]) Tramadol HCl 100 MG Tramadol HCl 100 MG 09/19/2020 12:00:00 AM EST 1.0 {tablet_as_needed} active Tramadol HCl 100 MG eCW1 ([facility]) Tramadol HCl 100 MG Tramadol HCl 100 MG 09/19/2020 12:00:00 AM EST 1.0 {tablet_as_needed} active Tramadol HCl 100 MG eCW1 ([facility]) Tramadol HCl 100 MG Tramadol HCl 100 MG 09/19/2020 12:00:00 AM EST 1.0 {tablet_as_needed} suspended Tramadol HC l 100 MG eCW1 ([facility]) Tramadol HCl 100 MG Tramadol HCl 100 MG 09/19/2020 12:00:00 AM EST 1.0 {tablet_as_needed} active Tramadol HCl 100 MG eCW1 ([facility]) Tramadol HCl 100 MG Tramadol HCl 100 MG 09/19/2020 12:00:00 AM EST 1.0 {tablet_as_needed} suspended Tramadol HC l 100 MG eCW1 ([facility]) Tramadol HCl 100 MG Tramadol HCl 100 MG 09/19/2020 12:00:00 AM EST 1.0 {tablet_as_needed} active Tramadol HCl 100 MG eCW1 ([facility]) Tramadol HCl 100 MG Tramadol HCl 100 MG 09/19/2020 12:00:00 AM EST 1.0 {tablet_as_needed} active Tramadol HCl 100 MG eCW1 ([facility]) Tramadol HCl 100 MG Tramadol HCl 100 MG 09/19/2020 12:00:00 AM EST 1.0 {tablet_as_needed} active Tramadol HCl 100 MG eCW1 ([facility]) Tramadol HCl 100 MG Tramadol HCl 100 MG 09/19/2020 12:00:00 AM EST 1.0 {tablet_as_needed} active Tramadol HCl 100 MG eCW1 ([facility]) Tramadol HCl 100 MG Tramadol HCl 100 MG 09/19/2020 12:00:00 AM EST 1.0 {tablet_as_needed} active Tramadol HCl 100 MG eCW1 ([facility]) Tramadol HCl 100 MG Tramadol HCl 100 MG 09/19/2020 12:00:00 AM EST 1.0 {tablet_as_needed} active Tramadol HCl 100 MG eCW1 ([facility]) Tramadol HCl 100 MG Tramadol HCl 100 MG 09/19/2020 12:00:00 AM EST 1.0 {tablet_as_needed} active Tramadol HCl 100 MG eCW1 ([facility]) tramadol hydrochloride 50 MG Oral Tablet traMADol (ULT BETH) 50 MG tablet traMADol (ULTRAM) 50 MG tablet 09/19/2020 12:00:00 AM EST active TAKE 2 TABLETS BY MOUTH 4 TIMES DAILY NEEDED FOR 14 DAYS [facility] Escitalopram 5 MG Oral Tablet Escitalopram Oxalate 5 M G Escitalopram Oxalate 5 MG 09/12/2020 12:00:00 AM EST 1.0 {tablet} activ e Escitalopram Oxalate 5 MG eCW1 ([facility]) Escitalopram 5 MG Oral Tablet Escitalopram Oxalate 5 M G Escitalopram Oxalate 5 MG 09/12/2020 12:00:00 AM EST 1.0 {tablet} activ e Escitalopram Oxalate 5 MG eCW1 ([facility]) apixaban 5 MG Oral Tablet [Eliquis] Eliquis 5 MG Eliquis 5 M G 08/28/2020 12:00:00 AM EST active Eliquis 5 MG eCW1 ([facility]) doxycycline hyclate 100 MG Oral Tablet Doxycycline Hyc late 100 MG Doxycycline Hyclate 100 MG 08/28/2020 12:00:00 AM EST 1.0 {tablet} active Doxycycline Hyclate 100 MG eCW1 ([facility]) doxycycline hyclate 100 MG Oral Tablet Doxycycline Hyc late 100 MG Doxycycline Hyclate 100 MG 08/28/2020 12:00:00 AM EST 1.0 {tablet} active Doxycycline Hyclate 100 MG eCW1 ([facility]) doxycycline hyclate 100 MG Oral Tablet Doxycycline Hyc late 100 MG Doxycycline Hyclate 100 MG 08/28/2020 12:00:00 AM EST 1.0 {tablet} active Doxycycline Hyclate 100 MG eCW1 ([facility]) doxycycline hyclate 100 MG Oral Tablet Doxycycline Hyc late 100 MG Doxycycline Hyclate 100 MG 08/28/2020 12:00:00 AM EST 1.0 {tablet} active Doxycycline Hyclate 100 MG eCW1 ([facility]) apixaban 5 MG Oral Tablet [Eliquis] Eliquis 5 MG Eliquis 5 M G 08/28/2020 12:00:00 AM EST active Eliquis 5 MG eCW1 ([facility]) apixaban 5 MG Oral Tablet [Eliquis] Eliquis 5 MG Eliquis 5 M G 08/28/2020 12:00:00 AM EST active Eliquis 5 MG eCW1 ([facility]) apixaban 5 MG Oral Tablet [Eliquis] Eliquis 5 MG Eliquis 5 M G 08/28/2020 12:00:00 AM EST active Eliquis 5 MG eCW1 ([facility]) tramadol hydrochloride 50 MG Oral Tablet Tramadol HCL 07/26/2020 12:00:00 AM EDT active [facility] ([facility]) Lisinopril 10 MG Oral Tablet Lisinopril 10 MG Oral Tab let (ZESTRIL) Lisinopril 10 MG Oral Tablet (ZESTRIL) 07/07/2020 12:00:00 AM EDT 10 mg Oral active Take 1 tablet by mouth daily [facility] insulin lispro (HumaLOG) injection LOW DOSE EATING INS ULIN patients 1-8 Units [id number] 07/06/2020 06:00:00 PM EDT U Subcutaneous active 1-8 Units, Subcutaneous, Three Times Daily-With Meals, First dose on Itzel 07/06/20 at 1800, For 30 days
Nursing MUST open the 'SQ Insulin Dosing Charts' Sidebar Report, or, the Patient Summary or Summary Report within the ED.
[facility] Medication administered onsite heparin (porcine) 5000 UNIT/ML injection 5,000 Units [id number] 07/05/2020 09:00:00 AM EDT 5000 U Subcutaneous active 5,000 Units, Subcutaneous, Three Times Daily Standard, First dose on Fri07/05/20 at 0900, For 30 days [facility] Medication administered onsite Tamsulosin hydrochloride 0.4 MG Oral Capsule tamsulosi n (FLOMAX) capsule 0.4 mg tamsulosin (FLOMAX) capsule 0.4 mg 07/05/2020 09:00:00 AM EDT 0.4 mg Oral active 0.4 mg, Oral, Daily Standard, First dose on Fri07/05/20 at 0900, For 30 days
Swallow whole. Do not crush, chew or open.
[facility] Medication administered onsite gabapentin 100 MG Oral Capsule gabapentin (NEURONTIN) capsule 100 mg gabapentin (NEURONTIN) capsule 100 mg 07/05/2020 09:00:00 AM EDT 100 mg Oral active 100 mg, Oral, Three Times D aily Standard, First dose on Fri07/05/20 at 0900, For 30 days [facility] Medication administered onsite pantoprazole 40 MG Delayed Release Oral Tablet pantoprazole (PROTONIX) EC tablet 40 mg pantoprazole (PROTONIX) EC tablet 40 mg 07/05/2020 07:30:00 AM E DT 40 mg Oral active 40 mg, Ora l, Before Breakfast, First dose on Fri07/05/20 at 0730, For 30 days
Do not crush or chew
[facility] Medication administered onsite sodium chloride (preservative free) [...] 8, For 30 days [Order 6 End] [facility] Medication administered onsite insulin lispro (HUMALOG) injection LOW DOSE NPO INSULI N patients 1-5 Units [id number] 07/05/2020 12:00:00 AM EDT U Subcutaneous aborted 1-5 Units, Subcutaneous, Every 4 hours, First dose on Fri07/05/20 at 0000, For 30 days
Nursing MUST open the 'SQ Insulin Dosing Charts' Sidebar Report, or, the Patient Summary or Summary Report within the ED.
[facility] Medication administered onsite Calcium Chloride 0.0014 MEQ/ML / Potassi um Chloride 0.004 MEQ/ML / Sodium Chloride 0.103 MEQ/ML / Sodium Lactate 0.028 MEQ/ML Injectable Solution lactated ringers infusion lactated ringers infusion 07/04/2020 09:45:00 PM EDT 100 mL/h Intravenous aborted at 100 m L/hr, Intravenous, Continuous, Starting Fri07/04/20 at 2145, For 30 days [facility] Medication administered onsite Ibuprofen 400 MG Oral Tablet ibuprofen (MOTRIN) tablet 600 mg ibuprofen (MOTRIN) tablet 600 mg 07/04/2020 09:38:31 PM EDT 600 mg Oral acti ve 600 mg, Oral, Every 6 hours PRN, Headaches, Fever, Starting Fri07/04/20 at 2138, For 719 hours
Take with food.
[facility] Medication administered onsite Glucagon 1 MG Injection glucagon (human recombinant) ( GLUCAGEN) injection 1 mg glucagon (human recombinant) (GLUCAGEN) injection 1 mg 07/04/2020 09:29:30 PM EDT 1 mg Intramuscular active 1 mg, Intramuscular, PRN, for glucose <55 without IV access, Starting Fri07/04/20 at 2129, For 30 days [facility] Medication administered onsite dextrose 50 % IV solution 25 mL [id number] 07/04/2020 09:29:30 PM E DT 25 mL Intravenous active 25 mL, Intrav enous, PRN, Other, blood glucose <55, Starting Fri07/04/20 at 2128, For 30 days
Not for midline administration.
[facility] Medication administered onsite Glucose 0.417 MG/MG Oral Gel glucose (GLUTOSE) 40 % or al gel 15 g glucose (GLUTOSE) 40 % oral gel 15 g 07/04/2020 09:29:30 PM EDT 15 g Oral active 15 g, Oral, PRN, Low blood s ugar, for gluose 55-69 mg/dl and able to take PO, Starting Fri07/04/20 at 2128, For 30 days [facility] Medication administered onsite oxyCODONE (ROXICODONE) immediate release [...] Service consultation and approval.
[Order 2 End] [facility] Medication administered onsite Acetaminophen 325 MG Oral [...] mg from all sources in 24 hours.
[facility] Medication administered onsite gabapentin 100 MG Oral Capsule Gabapentin 100 MG Oral Capsule (NEURONTIN) Gabapentin 100 MG Oral Capsule (NEURONTIN) 06/20/2020 12:00:00 AM EDT 100 mg Oral active Take 1 capsule by mo uth Three times daily [facility] Aquacel-Ag Hydrofiber 3/4"X18" External [id number] 06/20/20 12:00:00 AM EDT Apply externally active Apply 1 Piece topically every other day [facility] Silver-Carboxymethylcellulose (AQUACEL- HYDROFIBER 3 /4"X18") /4"X18" MIS [id number] 06/20/2020 12:00:00 AM EDT Topical activ e Apply topically [facility] Lisinopril 10 MG Oral Tablet Lisinopril 10 MG Oral Tab let (ZESTRIL) Lisinopril 10 MG Oral Tablet (ZESTRIL) 04/12/2020 12:00:00 AM EDT 10 mg Oral aborted Take 1 tablet by mouth daily [facility] Magnesium Oxide 400 MG Oral Tablet Magne sium Oxide 400 (241.3 Mg) MG Oral Tablet (MAG-OX) Magnesium Oxide 400 (241.3 Mg) MG Oral Tablet (MAG-OX) 04/12/2020 12:00:00 AM EDT 400 mg Oral active Take 1 t ablet by mouth daily [facility] Tamsulosin hydrochloride 0.4 MG Oral [facility] Tamsulosin HCl 0.4 MG Oral Capsule (FLOMAX) Tamsulosin HCl 0.4 MG Oral Capsule (FLOMAX) 04/12/2020 12:00 :00 AM EDT 0.4 mg Oral active Take 1 capsule b y mouth daily [facility] pantoprazole 40 MG Delayed Release Oral Tablet Pantoprazole Sodium 40 MG Oral Tablet Delayed Release (PROTONIX) Pantoprazole Sodium 40 MG Oral Tablet De layed Release (PROTONIX) 04/12/2020 12:00:00 AM EDT 40 mg Oral active Take 1 tablet by mouth every morning before breakfast [facility] Tamsulosin hydrochloride 0.4 MG Oral Capsule tamsulosi n (FLOMAX) 0.4 MG CAPS tamsulosin (FLOMAX) 0.4 MG CAPS 04/12/2020 12:00:00 AM EDT 0.4 mg O ral active Take 0.4 mg by mouth [facility] Magnesium Oxide 400 MG Oral Tablet Magne sium Oxide (MAG-OX) 400 (241.3 Mg) MG tablet Magnesium Oxide (MAG-OX) 400 (241.3 Mg) MG tablet 03/21 12:00:00 AM EDT 400 mg Oral active Take 400 mg by [facility] pantoprazole 40 MG Delayed Release Oral Tablet pantoprazole (PROTONIX) 40 MG tablet pantoprazole (PROTONIX) 40 MG tablet 04/12/2020 12:00:00 AM EDT 40 mg Oral active Take 40 mg by mouth [facility] gabapentin 100 MG Oral Capsule Gabapentin 100 MG Oral Capsule (NEURONTIN) Gabapentin 100 MG Oral Capsule (NEURONTIN) 04/11/2020 12:00:00 AM EDT 100 mg Oral active Take 1 capsule by [facility] Three times daily [facility] Docusate Sodium 100 MG Oral Capsule Docu sate Sodium 100 MG Oral Capsule (COLACE) Docusate Sodium 100 MG Oral Capsule (COLACE) 04/11/2020 12:00:00 AM EDT 100 mg Oral active Take 1 capsule by mouth Two Times Daily for 10 days [facility] Bisacodyl 10 MG Rectal Suppository Bisac odyl 10 MG Rectal Suppository (DULCOLAX) Bisacodyl 10 MG Rectal Suppository (DULCOLAX) 04/11/2020 12:00:0 0 AM EDT [address] 1 ann ppository rectally daily as needed for Constipation for up to 10 days [facility] Oxycodone Hydrochloride 5 MG Oral Tablet oxyCODONE HCl 5 MG Oral Tablet (ROXICODONE) oxyCODONE HCl 5 MG Oral Tablet (ROXICODONE) 04/11/2020 12:00:00 AM EDT 5 mg Oral active Take 1 t ablet by mouth every 4 (four) hours as needed for up to 3 days, Max Daily Dose: 30 mg [facility] sennosides, [facility] L[facility]ING 8.6 MG Oral Tablet Senna 8.6 MG Oral T ablet Senna 8.6 MG Oral Tablet 04/11/2020 12:00:00 AM EDT 2 {tbl} Oral active Take 2 tablets by mouth nightly [facility] Rivaroxaban 2.5 MG Oral Tablet (XARELTO) [id number] 04/11/2020 12 :00:00 AM EDT 2.5 mg Oral active Take 1 tablet by mouth T wo Times Daily [facility] sennosides, [facility] 8.6 MG Oral Tablet senna (SENOKOT) 8.6 MG TABS senna (SENOKOT) 8.6 MG TABS 04/11/2020 12:00:00 AM EDT 2 {tbl} Oral activ e Take 2 tablets by mouth [facility] oxyCODONE (ROXICODONE) immediate release tablet 5 [...] Service consultation and approval.
[Order 2 End] [facility] Medication administered onsite insulin lispro (HumaLOG) injection MEDIU M DOSE EATING INSULIN patients 1-16 Units [id number] 04/10/2020 09:45:00 AM EDT Subcutaneous active 1- 16 Units, Subcutaneous, Three Times Daily-With Meals, First dose (after last modification) on Fri04/10/20 at 0945, For 30 days
Nursing MUST open the 'SQ Insulin Dosing Charts' Sidebar Report, or, the Patient Summary or Summary Report within the ED.
[facility] Medication administered onsite Bisacodyl 10 MG Rectal Suppository bisacodyl (DULCOLAX ) suppository 10 mg bisacodyl (DULCOLAX) suppository 10 mg 04/09/2020 10:21:17 AM EDT 10 mg Rectal active 10 mg, Rectal, Daily PRN, Constipation, Starting 04/09/20 at 1021, For 30 days [facility] Medication administered onsite sennosides, [facility] 8.6 MG Oral Tablet senna tablet 2 tablet sen na tablet 2 tablet 04/08/2020 10:00:00 PM EDT 2 {tbl} Oral active 2 tablet, Oral, Nightly, First dose on 04/08/20 at 2200, For 30 days [facility] Medication administered onsite Docusate Sodium 100 MG Oral Capsule docusate sodium (C OLACE) capsule 100 mg docusate sodium (COLACE) capsule 100 mg 04/08/2020 09:00:00 PM EDT 100 mg Oral active 100 mg, Oral, 2 Times Daily, First dose on 04/08/20 at 2100, For 30 days [facility] Medication administered onsite Magnesium Oxide 400 MG Oral Tablet Magnesium Oxide (MA G-OX) tablet 400 mg Magnesium Oxide (MAG-OX) tablet 400 mg 04/07/2020 09:00:00 AM EDT 4 00 mg Oral active 400 mg, Oral, D aily Standard, First dose on Fri04/07/20 at 0900, For 30 days [facility] Medication administered onsite 50 ML Magnesium Sulfate 40 MG/ML Injecti on magnesium sulfate infusion 2 g/50 mL (premix) magnesium sulfate infusion 2 g/50 mL (premix) 04/07/20 07:45:00 AM EDT 16 meq Intravenous completed 16 mEq, Intravenous, Administer over 60 Minutes, Once, Fri04/07/20 at 0745, For 1 dose
each 8 mEq equivalent to 1 gm
[facility] Medication administered onsite Tamsulosin hydrochloride 0.4 MG Oral Capsule tamsulosi n (FLOMAX) capsule 0.4 mg tamsulosin (FLOMAX) capsule 0.4 mg 04/06/2020 09:00:00 AM EDT 0.4 mg Oral active 0.4 mg, Oral, Daily Standard, First dose on Itzel 04/06/20 at 0900, For 30 days
Swallow whole. Do not crush, chew or open.
[facility] Medication administered onsite rivaroxaban (XARELTO) tablet 2.5 mg [id number] 04/06/2020 09:00:00 AM EDT 2.5 mg Oral active 2.5 mg, Oral, 2 Times Daily, First dose on Itzel 04/06/20 at 0900, For 30 days [facility] Medication administered onsite dextrose 5 % and sodium chloride 0.45 % infusion [id number] 04/05/2020 06:00:00 AM EDT Intravenous aborted at 50 mL/hr, Intravenous, Continuous, Starting Fri04/05/20 at 0600, For 30 days [facility] Medication administered onsite chlorhexidine gluconate 40 MG/ML Medicat ed Liquid Soap chlorhexidine (HIBICLENS) 4 % liquid chlorhexidine (HIBICLENS) 4 % liquid 04/04/2020 09:00:00 PM EDT Topical aborted Topical, 2 Madan es Daily, First dose on Fri04/04/20 at 2100, For 2 doses
To BLE hs on 04/04 and morning of 04/05
[facility] Medication administered onsite Acetaminophen 325 MG Oral Tablet acetaminophen (TYLENO L) tablet 650 mg acetaminophen (TYLENOL) tablet 650 mg 04/04/2020 04:58:47 AM EDT 65 0 mg Oral active 650 mg, Oral, E very 6 hours PRN, pain, Starting Fri04/04/20 at 0458, For 30 days
Maximum daily dose of acetaminophen is 3,000 mg from all sources in 24 hours.
[facility] Medication administered onsite 0.4 ML Enoxaparin sodium [...] 10-12 hours prior to removing epidural catheter.
[facility] Medication administered onsite Lisinopril 10 MG Oral Tablet lisinopril (ZESTRIL) tabl et 10 mg lisinopril (ZESTRIL) tablet 10 mg 04/03/2020 09:00:00 AM EDT 10 mg Oral active 10 mg, Oral, Daily Standard, First dose on Fri04/03/20 at 0900, For 30 days
Check vital signs before administering
[facility] Medication administered onsite pantoprazole (PROTONIX) injection 40 [...] not crush or chew
[Order 2 End] [facility] Medication administered onsite magnesium sulfate in dextrose 5 % infusion (premix) 8 mEq [id number] 04/03/2020 05:30:00 AM EDT 8 meq Intravenous completed 8 mEq, Intravenous, Administer over 60 Minutes, Once, Fri04/03/20 at 0530, For 1 dose
each 8 mEq equivalent to 1 gm
[facility] Medication administered onsite gabapentin 100 MG Oral Capsule gabapentin (NEURONTIN) capsule 100 mg gabapentin (NEURONTIN) capsule 100 mg 04/02/2020 05:00:00 PM EDT 100 mg Oral active 100 mg, Oral, Three Times D aily Standard, First dose on Fri04/02/20 at 1700, For 30 days [facility] Medication administered onsite insulin lispro (HumaLOG) injection LOW DOSE EATING INS ULIN patients 1-8 Units [id number] 04/02/2020 01:00:00 PM EDT Subcutaneous aborted 1-8 Units, Subcutaneous, Three Times Daily-With Meals, First dose on Fri04/02/20 at 1300, For 30 days
Nursing MUST open the 'SQ Insulin Dosing Charts' Sidebar Report, or, the Patient Summary or Summary Report within the ED.
[facility] Medication administered onsite Calcium Chloride 0.0014 MEQ/ML / Potassi um Chloride 0.004 MEQ/ML / Sodium Chloride 0.103 MEQ/ML / Sodium Lactate 0.028 MEQ/ML Injectable Solution lactated ringers infusion lactated ringers infusion 04/02/2020 12:15:00 PM EDT Intravenous aborted at 125 mL/hr, Intravenous, Continuous, Starting Sandy 04/02/20 at 1215, For 30 days [facility] Medication administered onsite dextrose 50 % IV solution 25 mL [id number] 04/02/2020 12:06:19 PM E DT 25 mL Intravenous active 25 mL, Intrav enous, PRN, Other, blood glucose <55, Starting Sandy 04/02/20 at 1206, For 30 days
Not for midline administration.
[facility] Medication administered onsite Glucose 0.417 MG/MG Oral Gel glucose (GLUTOSE) 40 % or al gel 15 g glucose (GLUTOSE) 40 % oral gel 15 g 04/02/2020 12:06:19 PM EDT 15 g Oral active 15 g, Oral, PRN, Low blood s ugar, for gluose 55-69 mg/dl and able to take PO, Starting Sandy 04/02/20 at 1206, For 30 days [facility] Medication administered onsite Glucagon 1 MG Injection glucagon (human recombinant) ( GLUCAGEN) injection 1 mg glucagon (human recombinant) (GLUCAGEN) injection 1 mg 04/02/2020 12:06:19 PM EDT 1 mg Intramuscular active 1 mg, Intramuscular, PRN, for glucose <55 without IV access, Starting Sandy 04/02/20 at 1206, For 30 days [facility] Medication administered onsite 1 ML heparin sodium, porcine 1000 UNT/ML Injection heparin (porcine) 1000 units/mL injection 5,400 Units heparin (porcine) 1000 units/mL injectio n 5,400 Units 04/02/2020 09:00:00 AM EDT 5400 U Intravenous comple damian 5,400 Units, Intravenous, Once, Sandy 04/02/20 at 0900, For 1 dose
Adult High Dose / With Bolus Protocol.
[facility] Medication administered onsite 500 ML heparin sodium, porcine 50 UNT/ML Injection heparin in NaCl 0.45 % infusion 50 units/mL heparin in NaCl 0.45 % infusion 50 units/mL 04/02/2020 09:00:00 AM EDT 1350 U/h Intravenous aborted 1,350 Units/hr (27 mL/hr), Intravenous, at 27 mL/hr, Continuous, Starting 04/02/20 at 0900, For 30 days
Adult High Dose / With Bolus Protocol.
[facility] Medication administered onsite Lisinopril 10 MG Oral Tablet Lisinopril 10 MG 03/17/2020 12:00:00 A M EDT 1.0 {tablet} active Lisinopril 10 MG eCW1 ( [facility]) Lisinopril 5 MG Oral Tablet Lisinopril 5 MG 03/17/2020 12:00:00 AM EDT 1.0 {tablet} active Lisinopril 5 MG eCW1 ([facility]) Lisinopril 10 MG Oral Tablet Lisinopril 10 MG 03/17/2020 12:00:00 A M EDT 1.0 {tablet} active Lisinopril 10 MG eCW1 ( [facility]) Lisinopril 5 MG Oral Tablet Lisinopril 5 MG 03/17/2020 12:00:00 AM EDT 1.0 {tablet} active Lisinopril 5 MG eCW1 ([facility]) Lisinopril 5 MG Oral Tablet Lisinopril 5 MG 03/17/2020 12:00:00 AM EDT active 1 tablet eCW1 ([facility]) Lisinopril 5 MG Oral Tablet Lisinopril 5 MG 03/17/2020 12:00:00 AM EDT 1.0 {tablet} active Lisinopril 5 MG eCW1 ([facility]) Lisinopril 10 MG Oral Tablet Lisinopril 10 MG 03/17/2020 12:00:00 A M EDT 1.0 {tablet} active Lisinopril 10 MG eCW1 ( [facility]) Lisinopril 10 MG Oral Tablet Lisinopril 10 MG 03/17/2020 12:00:00 A M EDT 1.0 {tablet} active Lisinopril 10 MG eCW1 ( [facility]) Lisinopril 10 MG Oral Tablet Lisinopril 10 MG 03/17/2020 12:00:00 A M EDT 1.0 {tablet} active Lisinopril 10 MG eCW1 ( [facility]) Lisinopril 10 MG Oral Tablet Lisinopril 10 MG 03/17/2020 12:00:00 A M EDT 1.0 {tablet} active Lisinopril 10 MG eCW1 ( [facility]) Lisinopril 10 MG Oral Tablet Lisinopril 10 MG 03/17/2020 12:00:00 A M EDT 1.0 {tablet} active Lisinopril 10 MG eCW1 ( [facility]) Lisinopril 10 MG Oral Tablet Lisinopril 10 MG 03/17/2020 12:00:00 A M EDT 1.0 {tablet} active Lisinopril 10 MG eCW1 ( [facility]) Lisinopril 10 MG Oral Tablet Lisinopril 10 MG 03/17/2020 12:00:00 A M EDT 1.0 {tablet} active Lisinopril 10 MG eCW1 ( [facility]) Lisinopril 10 MG Oral Tablet Lisinopril 10 MG 03/17/2020 12:00:00 A M EDT 1.0 {tablet} active Lisinopril 10 MG eCW1 ( [facility]) Lisinopril 10 MG Oral Tablet Lisinopril 10 MG 03/17/2020 12:00:00 A M EDT 1.0 {tablet} active Lisinopril 10 MG eCW1 ( [facility]) Lisinopril 10 MG Oral Tablet Lisinopril 10 MG 03/17/2020 12:00:00 A M EDT 1.0 {tablet} active Lisinopril 10 MG eCW1 ( [facility]) Lisinopril 10 MG Oral Tablet Lisinopril 10 MG 03/17/2020 12:00:00 A M EDT 1.0 {tablet} active Lisinopril 10 MG eCW1 ( [facility]) Lisinopril 10 MG Oral Tablet Lisinopril 10 MG 03/17/2020 12:00:00 A M EDT 1.0 {tablet} active Lisinopril 10 MG eCW1 ( [facility]) Lisinopril 10 MG Oral Tablet Lisinopril 10 MG 03/17/2020 12:00:00 A M EDT 1.0 {tablet} active Lisinopril 10 MG eCW1 ( [facility]) Lisinopril 10 MG Oral Tablet Lisinopril 10 MG 03/17/2020 12:00:00 A M EDT 1.0 {tablet} active Lisinopril 10 MG eCW1 ( [facility]) Lisinopril 10 MG Oral Tablet Lisinopril 10 MG 03/17/2020 12:00:00 A M EDT 1.0 {tablet} active Lisinopril 10 MG eCW1 ( [facility]) Lisinopril 10 MG Oral Tablet Lisinopril 10 MG 03/17/2020 12:00:00 A M EDT 1.0 {tablet} active Lisinopril 10 MG eCW1 ( [facility]) Lisinopril 5 MG Oral Tablet Lisinopril 5 MG 03/17/2020 12:00:00 AM EDT 1.0 {tablet} active Lisinopril 5 MG eCW1 ([facility]) Lisinopril 10 MG Oral Tablet Lisinopril 10 MG 03/17/2020 12:00:00 A M EDT 1.0 {tablet} active Lisinopril 10 MG eCW1 ( [facility]) Lisinopril 10 MG Oral Tablet Lisinopril 10 MG 03/17/2020 12:00:00 A M EDT 1.0 {tablet} active Lisinopril 10 MG eCW1 ( [facility]) Lisinopril 10 MG Oral Tablet Lisinopril 10 MG 03/17/2020 12:00:00 A M EDT 1.0 {tablet} active Lisinopril 10 MG eCW1 ( [facility]) Lisinopril 10 MG Oral Tablet Lisinopril 10 MG 03/17/2020 12:00:00 A M EDT 1.0 {tablet} active Lisinopril 10 MG eCW1 ( [facility]) Lisinopril 10 MG Oral Tablet Lisinopril 10 MG 03/17/2020 12:00:00 A M EDT 1.0 {tablet} active Lisinopril 10 MG eCW1 ( [facility]) Lisinopril 10 MG Oral Tablet Lisinopril 10 MG 03/17/2020 12:00:00 A M EDT 1.0 {tablet} active Lisinopril 10 MG eCW1 ( [facility]) Lisinopril 10 MG Oral Tablet Lisinopril 10 MG 03/17/2020 12:00:00 A M EDT 1.0 {tablet} active Lisinopril 10 MG eCW1 ( [facility]) Lisinopril 5 MG Oral Tablet Lisinopril 5 MG 03/17/2020 12:00:00 AM EDT 1.0 {tablet} active Lisinopril 5 MG eCW1 ([facility]) Lisinopril 5 MG Oral Tablet Lisinopril 5 MG 03/17/2020 12:00:00 AM EDT 1.0 {tablet} active Lisinopril 5 MG eCW1 ([facility]) Lisinopril 5 MG Oral Tablet Lisinopril 5 MG 03/17/2020 12:00:00 AM EDT 1.0 {tablet} active Lisinopril 5 MG eCW1 ([facility]) Lisinopril 10 MG Oral Tablet Lisinopril 10 MG 03/17/2020 12:00:00 A M EDT 1.0 {tablet} active Lisinopril 10 MG eCW1 ( [facility]) Lisinopril 10 MG Oral Tablet Lisinopril 10 MG 03/17/2020 12:00:00 A M EDT 1.0 {tablet} active Lisinopril 10 MG eCW1 ( [facility]) Lisinopril 5 MG Oral Tablet Lisinopril 5 MG 03/17/2020 12:00:00 AM EDT 1.0 {tablet} active Lisinopril 5 MG eCW1 ([facility]) Lisinopril 5 MG Oral Tablet Lisinopril 5 MG 03/17/2020 12:00:00 AM EDT 1.0 {tablet} active Lisinopril 5 MG eCW1 ([facility]) Lisinopril 10 MG Oral Tablet Lisinopril 10 MG 03/17/2020 12:00:00 A M EDT 1.0 {tablet} active Lisinopril 10 MG eCW1 ( [facility]) Lisinopril 10 MG Oral Tablet Lisinopril 10 MG 03/17/2020 12:00:00 A M EDT 1.0 {tablet} active Lisinopril 10 MG eCW1 ( [facility]) Lisinopril 10 MG Oral Tablet Lisinopril 10 MG 03/17/2020 12:00:00 A M EDT 1.0 {tablet} active Lisinopril 10 MG eCW1 ( [facility]) Lisinopril 10 MG Oral Tablet Lisinopril 10 MG 03/17/2020 12:00:00 A M EDT 1.0 {tablet} active Lisinopril 10 MG eCW1 ( [facility]) Lisinopril 5 MG Oral Tablet Lisinopril 5 MG 03/17/2020 12:00:00 AM EDT 1.0 {tablet} active Lisinopril 5 MG eCW1 ([facility]) Lisinopril 10 MG Oral Tablet Lisinopril 10 MG 03/17/2020 12:00:00 A M EDT 1.0 {tablet} active Lisinopril 10 MG eCW1 ( [facility]) Lisinopril 10 MG Oral Tablet Lisinopril 10 MG 03/17/2020 12:00:00 A M EDT 1.0 {tablet} active Lisinopril 10 MG eCW1 ( [facility]) Lisinopril 5 MG Oral Tablet Lisinopril 5 MG 03/17/2020 12:00:00 AM EDT 1.0 {tablet} active Lisinopril 5 MG eCW1 ([facility]) Lisinopril 10 MG Oral Tablet Lisinopril 10 MG 03/17/2020 12:00:00 A M EDT 1.0 {tablet} active Lisinopril 10 MG eCW1 ( [facility]) Sulfamethoxazole 800 MG / Trimethoprim 1 60 MG Oral Tablet Sulfamethoxazole- Trimethoprim 800-160 MG Sulfamethoxazole-Trimethoprim 800-160 MG 03/16/2020 12:00:00 AM EDT 1.0 {tablet} suspended Sulfamethoxazole-Trimethoprim 800-160 MG eCW1 ([facility]) Sulfamethoxazole 800 MG / Trimethoprim 1 60 MG Oral Tablet Sulfamethoxazole- Trimethoprim 800-160 MG Sulfamethoxazole-Trimethoprim 800-160 MG 03/16/2020 12:00:00 AM EDT 1.0 {tablet} suspended Sulfamethoxazole-Trimethoprim 800-160 MG eCW1 ([facility]) Sulfamethoxazole 800 MG / Trimethoprim 1 60 MG Oral Tablet Sulfamethoxazole- Trimethoprim 800-160 MG Sulfamethoxazole-Trimethoprim 800-160 MG 03/16/2020 12:00:00 AM EDT 1.0 {tablet} active Sulfamethoxazole-Trimethoprim 800-160 MG eCW1 ([facility]) Sulfamethoxazole 800 MG / Trimethoprim 1 60 MG Oral Tablet Sulfamethoxazole- Trimethoprim 800-160 MG Sulfamethoxazole-Trimethoprim 800-160 MG 03/16/2020 12:00:00 AM EDT 1.0 {tablet} suspended Sulfamethoxazole-Trimethoprim 800-160 MG eCW1 ([facility]) Sulfamethoxazole 800 MG / Trimethoprim 1 60 MG Oral Tablet Sulfamethoxazole- Trimethoprim 800-160 MG Sulfamethoxazole-Trimethoprim 800-160 MG 03/16/2020 12:00:00 AM EDT 1.0 {tablet} active Sulfamethoxazole-Trimethoprim 800-160 MG eCW1 ([facility]) Sulfamethoxazole 800 MG / Trimethoprim 1 60 MG Oral Tablet Sulfamethoxazole- Trimethoprim 800-160 MG Sulfamethoxazole-Trimethoprim 800-160 MG 03/16/2020 12:00:00 AM EDT 1.0 {tablet} active Sulfamethoxazole-Trimethoprim 800-160 MG eCW1 ([facility]) Sulfamethoxazole 800 MG / Trimethoprim 1 60 MG Oral Tablet Sulfamethoxazole- Trimethoprim 800-160 MG Sulfamethoxazole-Trimethoprim 800-160 MG 03/16/2020 12:00:00 AM EDT 1.0 {tablet} suspended Sulfamethoxazole-Trimethoprim 800-160 MG eCW1 ([facility]) Sulfamethoxazole 800 MG / Trimethoprim 1 60 MG Oral Tablet Sulfamethoxazole- Trimethoprim 800-160 MG Sulfamethoxazole-Trimethoprim 800-160 MG 03/16/2020 12:00:00 AM EDT 1.0 {tablet} active Sulfamethoxazole-Trimethoprim 800-160 MG eCW1 ([facility]) Sulfamethoxazole 800 MG / Trimethoprim 1 60 MG Oral Tablet Sulfamethoxazole- Trimethoprim 800-160 MG Sulfamethoxazole-Trimethoprim 800-160 MG 03/16/2020 12:00:00 AM EDT 1.0 {tablet} active Sulfamethoxazole-Trimethoprim 800-160 MG eCW1 ([facility]) Sulfamethoxazole 800 MG / Trimethoprim 1 60 MG Oral Tablet Sulfamethoxazole- Trimethoprim 800-160 MG Sulfamethoxazole-Trimethoprim 800-160 MG 03/16/2020 12:00:00 AM EDT 1.0 {tablet} active Sulfamethoxazole-Trimethoprim 800-160 MG eCW1 ([facility]) Sulfamethoxazole 800 MG / Trimethoprim 1 60 MG Oral Tablet Sulfamethoxazole- Trimethoprim 800-160 MG Sulfamethoxazole-Trimethoprim 800-160 MG 03/16/2020 12:00:00 AM EDT 1.0 {tablet} active Sulfamethoxazole-Trimethoprim 800-160 MG eCW1 ([facility]) Sulfamethoxazole 800 MG / Trimethoprim 1 60 MG Oral Tablet Sulfamethoxazole- Trimethoprim 800-160 MG Sulfamethoxazole-Trimethoprim 800-160 MG 03/16/2020 12:00:00 AM EDT 1.0 {tablet} active Sulfamethoxazole-Trimethoprim 800-160 MG eCW1 ([facility]) Sulfamethoxazole 800 MG / Trimethoprim 1 60 MG Oral Tablet Sulfamethoxazole- Trimethoprim 800-160 MG Sulfamethoxazole-Trimethoprim 800-160 MG 03/16/2020 12:00:00 AM EDT 1.0 {tablet} suspended Sulfamethoxazole-Trimethoprim 800-160 MG eCW1 ([facility]) Sulfamethoxazole 800 MG / Trimethoprim 1 60 MG Oral Tablet Sulfamethoxazole- Trimethoprim 800-160 MG Sulfamethoxazole-Trimethoprim 800-160 MG 03/16/2020 12:00:00 AM EDT 1.0 {tablet} active Sulfamethoxazole-Trimethoprim 800-160 MG eCW1 ([facility]) Sulfamethoxazole 800 MG / Trimethoprim 1 60 MG Oral Tablet Sulfamethoxazole- Trimethoprim 800-160 MG Sulfamethoxazole-Trimethoprim 800-160 MG 03/16/2020 12:00:00 AM EDT 1.0 {tablet} active Sulfamethoxazole-Trimethoprim 800-160 MG eCW1 ([facility]) Sulfamethoxazole 800 MG / Trimethoprim 1 60 MG Oral Tablet Sulfamethoxazole- Trimethoprim 800-160 MG Sulfamethoxazole-Trimethoprim 800-160 MG 03/16/2020 12:00:00 AM EDT 1.0 {tablet} suspended Sulfamethoxazole-Trimethoprim 800-160 MG eCW1 ([facility]) Sulfamethoxazole 800 MG / Trimethoprim 1 60 MG Oral Tablet Sulfamethoxazole- Trimethoprim 800-160 MG Sulfamethoxazole-Trimethoprim 800-160 MG 03/16/2020 12:00:00 AM EDT 1.0 {tablet} suspended Sulfamethoxazole-Trimethoprim 800-160 MG eCW1 ([facility]) Sulfamethoxazole 800 MG / Trimethoprim 1 60 MG Oral Tablet Sulfamethoxazole- Trimethoprim 800-160 MG Sulfamethoxazole-Trimethoprim 800-160 MG 03/16/2020 12:00:00 AM EDT 1.0 {tablet} suspended Sulfamethoxazole-Trimethoprim 800-160 MG eCW1 ([facility]) Sulfamethoxazole 800 MG / Trimethoprim 1 60 MG Oral Tablet Sulfamethoxazole- Trimethoprim 800-160 MG Sulfamethoxazole-Trimethoprim 800-160 MG 03/16/2020 12:00:00 AM EDT 1.0 {tablet} active Sulfamethoxazole-Trimethoprim 800-160 MG eCW1 ([facility]) gabapentin 300 MG Oral Capsule Gabapentin 300 MG Gabapentin 300 MG 02/29/2020 12:00:00 AM EDT active 1 capsul e eCW1 ([facility]) gabapentin 100 MG Oral Capsule Gabapentin 100 MG Gabapentin 100 MG 02/29/2020 12:00:00 AM EDT 1.0 {capsule} active G abapentin 100 MG eCW1 ([facility]) gabapentin 300 MG Oral Capsule Gabapentin 300 MG Gabapentin 300 MG 02/29/2020 12:00:00 AM EDT 1.0 {capsule} active G abapentin 300 MG eCW1 ([facility]) gabapentin 100 MG Oral Capsule Gabapentin 100 MG Gabapentin 100 MG 02/29/2020 12:00:00 AM EDT 1.0 {capsule} active G abapentin 100 MG eCW1 ([facility]) gabapentin 300 MG Oral Capsule Gabapentin 300 MG Gabapentin 300 MG 02/29/2020 12:00:00 AM EDT 1.0 {capsule} active G abapentin 300 MG eCW1 ([facility]) gabapentin 300 MG Oral Capsule Gabapentin 300 MG Gabapentin 300 MG 02/29/2020 12:00:00 AM EDT 1.0 {capsule} active G abapentin 300 MG eCW1 ([facility]) gabapentin 300 MG Oral Capsule Gabapentin 300 MG Gabapentin 300 MG 02/29/2020 12:00:00 AM EDT 1.0 {capsule} active G abapentin 300 MG eCW1 ([facility]) gabapentin 100 MG Oral Capsule Gabapentin 100 MG Gabapentin 100 MG 02/29/2020 12:00:00 AM EDT 1.0 {capsule} active G abapentin 100 MG eCW1 ([facility]) gabapentin 300 MG Oral Capsule Gabapentin 300 MG Gabapentin 300 MG 02/29/2020 12:00:00 AM EDT 1.0 {capsule} active G abapentin 300 MG eCW1 ([facility]) gabapentin 100 MG Oral Capsule Gabapentin 100 MG Gabapentin 100 MG 02/29/2020 12:00:00 AM EDT 1.0 {capsule} active G abapentin 100 MG eCW1 ([facility]) gabapentin 300 MG Oral Capsule Gabapentin 300 MG Gabapentin 300 MG 02/29/2020 12:00:00 AM EDT 1.0 {capsule} active G abapentin 300 MG eCW1 ([facility]) gabapentin 100 MG Oral Capsule Gabapentin 100 MG Gabapentin 100 MG 02/29/2020 12:00:00 AM EDT 1.0 {capsule} active G abapentin 100 MG eCW1 ([facility]) gabapentin 300 MG Oral Capsule Gabapentin 300 MG Gabapentin 300 MG 02/29/2020 12:00:00 AM EDT 1.0 {capsule} active G abapentin 300 MG eCW1 ([facility]) gabapentin 100 MG Oral Capsule Gabapentin 100 MG Gabapentin 100 MG 02/29/2020 12:00:00 AM EDT 1.0 {capsule} active G abapentin 100 MG eCW1 ([facility]) gabapentin 300 MG Oral Capsule Gabapentin 300 MG Gabapentin 300 MG 02/29/2020 12:00:00 AM EDT active 1 capsul e eCW1 ([facility]) gabapentin 300 MG Oral Capsule Gabapentin 300 MG Gabapentin 300 MG 02/29/2020 12:00:00 AM EDT 1.0 {capsule} active G abapentin 300 MG eCW1 ([facility]) gabapentin 300 MG Oral Capsule Gabapentin 300 MG Gabapentin 300 MG 02/29/2020 12:00:00 AM EDT active 1 capsul e eCW1 ([facility]) gabapentin 100 MG Oral Capsule Gabapentin 100 MG Gabapentin 100 MG 02/29/2020 12:00:00 AM EDT 1.0 {capsule} active G abapentin 100 MG eCW1 ([facility]) gabapentin 100 MG Oral Capsule Gabapentin 100 MG Gabapentin 100 MG 02/29/2020 12:00:00 AM EDT 1.0 {capsule} active G abapentin 100 MG eCW1 ([facility]) gabapentin 300 MG Oral Capsule Gabapentin 300 MG Gabapentin 300 MG 02/29/2020 12:00:00 AM EDT 1.0 {capsule} active G abapentin 300 MG eCW1 ([facility]) gabapentin 100 MG Oral Capsule Gabapentin 100 MG Gabapentin 100 MG 02/29/2020 12:00:00 AM EDT 1.0 {capsule} active G abapentin 100 MG eCW1 ([facility]) gabapentin 100 MG Oral Capsule Gabapentin 100 MG Gabapentin 100 MG 02/29/2020 12:00:00 AM EDT 1.0 {capsule} active G abapentin 100 MG eCW1 ([facility]) gabapentin 100 MG Oral Capsule Gabapentin 100 MG Gabapentin 100 MG 02/29/2020 12:00:00 AM EDT 1.0 {capsule} active G abapentin 100 MG eCW1 ([facility]) gabapentin 100 MG Oral Capsule Gabapentin 100 MG Gabapentin 100 MG 02/29/2020 12:00:00 AM EDT 1.0 {capsule} active G abapentin 100 MG eCW1 ([facility]) gabapentin 300 MG Oral Capsule Gabapentin 300 MG Gabapentin 300 MG 02/29/2020 12:00:00 AM EDT 1.0 {capsule} active G abapentin 300 MG eCW1 ([facility]) gabapentin 300 MG Oral Capsule Gabapentin 300 MG Gabapentin 300 MG 02/29/2020 12:00:00 AM EDT 1.0 {capsule} active G abapentin 300 MG eCW1 ([facility]) Cephalexin 500 MG Oral Capsule Cephalexin 500 MG 02/22/2020 12:00:00 AM EDT active 1 capsule eCW1 ([facility]) Metformin hydrochloride 500 MG Oral Tablet metFORMIN ( GLUCOPHAGE) 500 MG tablet metFORMIN (GLUCOPHAGE) 500 MG tablet 10/22/2019 12:00:00 AM EST aborted TAKE 2 TABLETS BY MOUTH TWICE DA LUCIAN WITH A MEAL FOR 30 DAYS [facility] Glipizide 5 MG Oral Tablet glipiZIDE (GLUCOTROL) 5 MG tablet glipiZIDE (GLUCOTROL) 5 MG tablet 09/21/2019 12:00:00 AM EST aborted [facility] glucose blood (ACCU-CHEK VAHE) test strip [id number] 03/01/2015 12:0 0:00 AM EDT aborted ACCU-CHEK VAHE IN V ITRO STRIP [facility] Lisinopril 5 MG Oral Tablet lisinopril (PRINIVIL,ZESTR IL) 5 MG tablet lisinopril (PRINIVIL,ZESTRIL) 5 MG tablet 5 mg Oral aborted Take 5 mg by mouth daily [facility] gabapentin 300 MG Oral Capsule gabapentin (NEURONTIN) 300 MG capsule gabapentin (NEURONTIN) 300 MG capsule 300 mg Oral aborted Take 300 mg by mouth Two Times Daily [facility] Insurance Providers Payer name Policy type / Coverage type Policy ID Covered libertarian ID Covered libertarian's relationship to castellanos Policy Castellanos Plan Information R [facility] [id number] MEDICARE [id number] SP [id number] MEDICARE PART A -O/P [id number] 18 [id number] R [facility] [id number] 2 [id number] [facility] U [id number] Spouse [id number] MEDICARE A [id number] Self [id number] [facility] [id number] MEDICARE [id number] [facility] [id number] [facility] [id number] MEDICARE [id number] [place] [id number] [id number] R O [id number] S [id number] MEDICARE C [id number] S [id number] UMR [id number] SPO [id number] MEDICARE - [place] [id number] S [id number] [facility] [employer] [id number] S [id number] MEDICARE [id number] SP [id number] A ANSI-Commercial [id number] ANSI-Commercial [id number] ANSI-Medicare Part B [id number] ANSI-Commercial [id number] ANSI-Commercial [id number] ANSI-Medicare Part B [id number] ANSI-Medicare Part B [id number] ANSI-Commercial [id number] ANSI-Commercial [id number] ANSI-Medicare Part B [id number] ANSI-Commercial [id number] ANSI-Commercial [id number] ANSI-Commercial [id number] ANSI-Medicare Part B [id number] ANSI-Commercial [id number] ANSI-Commercial [id number] ANSI-Commercial [id number] ANSI-Medicare Part B [id number] Medicare Dme Medigap Part B [id number] Self [id number] Medicare Medicare Primary [id number] Self [id number] Umr Commercial [id number] Family Dependent [id number] Umr (pr) Medigap Part B [id number] Self [id number] Medicare Dme Supplies Medigap Part B [id number] Self [id number] [place] [id number] Self [id number] [place] (pr) Medigap Part B [id number] Family Dependent [id number] Umr (pr) Medigap Part B [id number] Self [id number] Medicare Dme Supplies Medigap Part B [id number] Self [id number] Medicare [place] Primary [id number] Self [id number] ANSI-Commercial [id number] ANSI-Commercial [id number] ANSI-Medicare Part B [id number] Umr (pr) Medigap Part B [id number] Self [id number] Medicare [place] Primary [id number] Self [id number] ANSI-Commercial [id number] ANSI-Commercial [id number] ANSI-Medicare Part B [id number] ANSI-Commercial [id number] ANSI-Medicare Part B [id number] ANSI-Commercial [id number] Medicare [facility] Part B [id number] Self [id number] Medicare Medicare Primary [id number] Self [id number] ANSI-Medicare Part B [id number] ANSI-Commercial [id number] ANSI-Commercial [id number] Medicare [place] [id number] Self [id number] ANSI-Medicare Part B [id number] ANSI-Commercial [id number] ANSI-Commercial [id number] ANSI-Medicare Part B [id number] ANSI-Commercial [id number] ANSI-Commercial [id number]-[id number] ANSI-Medicare Part B [id number] ANSI-Commercial [id number] ANSI-Commercial [id number] ANSI-Commercial [id number] ANSI-Commercial [id number] ANSI-Medicare Part B [id number] ANSI-Medicare Part B [id number] ANSI-Commercial [id number]-5228-485d-2o84-4nf865511y3f ANSI-Commercial 289l2c66-760a-6489-2562-530a25yu2cl0 530z7k88-353j-7686-3370-138w35hh9no3 [facility] [id number] [facility] [id number] MEDICARE [id number] A ANSI-Medicare Part B [id number]-0289-3829-i21o-[id number] o525kpgw-9890-0498-v28u-062864349x0a ANSI-Commercial a0652965-79p9-0565-l78s-r34p6sy9v07t p0679577-46l0-6879-x43c-v54m5yz0o21v ANSI-Commercial b25r0e2y-u431-406i-83fy-h9o2d9o1q821 n75y3f1e-s136-654o-23vj-v6j4g8r4s152 ANSI-Commercial 6bm9d77r-25am-2464-xu3x-0h15s96637q3 8zy8o99b-74xm-2352-nu5t-7y28w97818e6 ANSI-Commercial 4q539fk6-0v90-731o-581w-8jj81m8ym79y 9k726az0-9k66-384w-104u-5tf20z6wo80q ANSI-Medicare Part B [id number]-fcao-1v3t-31ny-2m4j7br40h8f azxq6898-wtzw-4l3f-13te-6a3w9ro56l7z ANSI-Commercial kv8a24xz-6jo2-390l-k973-i66e6g43463k do6d49ep-7oc5-639m-t610-e80l7w05615h ANSI-Medicare Part B 20u4fk74-f6q5-77o3-v797-l4bz7z1463b1 87e2pr99-g0l8-50y3-q369-z3sq4p2095q2 ANSI-Commercial 3456y5x2-5ekw-7485-5j9s-jw5ub74543n5 2791k2e6-3djt-1416-9r1s-ke0jv96704v2 Medicare Medicare Primary [id number] Self 7 [id number] ANSI-Medicare Part B [id number]-t959-3i39-d5x9-2581j79f657g ae4zz84m-d617-3m51-z0a8-2295j90c598q ANSI-Commercial z16sj42n-44xw-6954-cwr8-w4ms7229xc8c o12nf54f-50ql-0594-feb6-x8vk9149ii6a ANSI-Commercial 842prj8h-rqm4-3s39-4r09-o6iy7mjafu98 935vmh8y-agn1-9p23-1g89-f6ic2yusaf35 ANSI-Commercial 5467v161-5n21-353o-36uj-o3s8zwovi483 5055r125-6r98-714h-69ay-c8a3pwzek152 ANSI-Medicare Part B [id number]-12m2-4c1v-4gye07040w07 n20r9754-b42l-41b0-9g3g-7xwo62827a23 ANSI-Commercial 0q3iau6z-a9n3-7966-6983-4h9i9ib805fz 5v6wta5b-p9i5-9278-8669-6r5x8vx840au ANSI-Commercial 8gz76c0m-97k4-01fd-5569-81522rj28pug 1kh19p7b-09o2-52oa-0886-39746mc79ydz ANSI-Medicare Part B [id number]-9ui3-j6131j83y236 m2d3b446-9239-43wa-4jt6-x7503h26w283 ANSI-Commercial t9j89w9u-1pl1-1r1g-bt2b-l84b36088t00 b3o60s4k-6lt8-3e3d-nz2l-q69g00072b46 ANSI-Medicare Part B [id number]-0899-6vmr-36423h385w98 pw066972-120h-4953-4qqf-52452b357k11 ANSI-Commercial lps04m01-i42f-3w0e-4688-978i1h34z321 bfl18q55-a28j-3z9v-7809-526b6a39r647 ANSI-Commercial 61afg5l8-3c4x-81hb-tdy3-440q05c3618z 68gmn0f5-1m3x-18hb-mpi4-211k86q9997q Medicare Medicare Primary [id number] Self [id number] [facility] [id number] [facility] [id number] ANSI-Medicare Part B [id number]-t30m-[id number] d0m1f316-5v47-6186-p05j-z4k863m7l2w2 ANSI-Commercial 6gfq821l-7010-9v4a-84vl-7843im16v3a7 1dwa132r-4143-3h8v-44az-9756af27t9v0 ANSI-Commercial 9f932n30-ik26-7u11-4386-271ghbjc9z18 9t297j69-eq45-7k71-4627-654uhxkf8y16 ANSI-Commercial 2k92axo7-5023-9w02-9d35-st7w4985ch25 3l27ncx4-6969-9v96-9p09-hb6d1158dt79 ANSI-Medicare Part B [id number]-xbz7-19bc-[id number] 5car9x20-lvp7-70ib-nhy4-0v3749s868z8 ANSI-Commercial x863b17x-60mg-1m01-a903-nd4gsi543476 i883l65s-19cc-4o19-w728-fc0tdg413593 ANSI-Medicare Part B [id number]-eo99-0jz5-ez79-56d88020cd2q 7es7685x-xo22-1eh1-ga81-63d23095iv0y ANSI-Commercial u7kvo54r-1725-7297-b70k-a301029n794n d3lky99x-7116-7534-m36i-c578469q657q ANSI-Medicare Part B [id number]-[id number] m1wxq959-523y-3l88-1488-8j82lz8822c1 [facility] [id number] WI2 [id number] [facility] PPO O [id number] S [id number] MEDICARE C [id number] S [id number] A [facility] [id number] WI2 [id number] MEDICARE [id number] SP [id number] A [facility] [id number] WI2 [id number] [facility] [id number] WI2 [id number] MEDICARE [id number] SP [id number] A [place] Medigap Part B Family Dependent Medicare [facility]/NGS Medicare Primary Self OTHER1 UNAVAILABLE UNAVAILA BLE POMCO [id number] SP [id number] POMCO [id number] WI2 [id number] [facility] P [id number] S [id number] [place] PPO S [id number] S [id number] [facility] [id number] WI2 [id number] A Problems, Conditions, and Diagnoses Code Display Name Description Problem Type Effective Dates Data Source(s) 189814684 Amputated right lower limb above knee Am putated right lower limb above knee Problem 11/14/2020 12:00:00 AM EST [facility] ([facility] K29.70 Gastroduodenitis Gastritis, presence of bleeding unspecified, unspecified chronicity, unspecified gastritis type Problem 11/09/2020 12:00:00 A M EST eCW1 ([facility]) I48.11 [id number] Longstanding persistent atrial fibrillati on Problem 11/09/2020 12:00:00 AM EST eCW1 ([facility]) N40.0 [id number] Benign prostatic hyp erplasia without lower urinary tract symptoms Problem 11/09/2020 12:00:00 AM EST [facility]CW1 ([facility]) G54.6 [id number] Phantom limb pain Problem 11/09/2020 12:0 0:00 AM EST eCW1 ([facility]) S78.111A [id number] 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 Problem 10/19/2020 12:00:00 AM EST eCW1 ([facility]) E11.65 [id number] Poorly controlled diabetes mellitus Probl em 10/19/2020 12:00:00 AM EST eCW1 ([facility]) F43.20 [id number] Adjustment disorder, unspecified type Pro blem 09/12/2020 12:00:00 AM EST eCW1 ([facility]) Z95.828 [id number] S/P femoral-popliteal bypass surgery Prob ernesto 09/08/2020 12:00:00 AM EST eCW1 ([facility]) L03.90 [id number] Cellulitis, unspecified cellulitis site P roblem 08/28/2020 12:00:00 AM EST eCW1 ([facility]) L03.115 [id number] Cellulitis of right lower extremity Probl em 08/28/2020 12:00:00 AM EST eCW1 ([facility]) E11.42 [id number] Type 2 diabetes santos itus with diabetic polyneuropathy, without long-term current use of insulin Problem 08/28/2020 12:00:00 AM EST eCW1 ([facility]) L97.512 [id number] Non-pressure chronic ulcer of other part of right foot with fat layer exposed Problem 08/28/2020 12:00:00 AM EST eCW1 ([facility]) I70.238 [id number] Atherosclerosis of n ative arteries of right leg with ulceration of other part of lower leg Problem 08/28/2020 12:00:00 AM EST eCW1 ([facility]) I87.311 [id number] Chronic venous hyper tension (idiopathic) with ulcer of right lower extremity Problem 08/28/2020 12:00:00 AM EST eCW1 ([facility]) I70.235 [id number] Atherosclerosis of n ative arteries of right leg with ulceration of other part of foot Problem 08/28/2020 12:00:00 AM EST eCW1 ([facility]) L97.514 [id number] Non-pressure chronic ulcer of other part of right foot with necrosis of bone Problem 07/18/2020 12:00:00 AM EDT eCW1 ([facility]) E11.621 [id number] Type 2 diabetes mellitus with foot ulcer Problem 07/18/2020 12:00:00 AM EDT eCW1 ([facility]) L03.032 [id number] Paronychia of fifth toe of left foot Problem 03/23/2020 12:00:00 AM EDT eCW1 ([facility]) I10 Essential hypertension Essential hypertension [id number] 10/28/2019 12:00:00 AM [facility] I25.10 Coronary artery disease Coronary artery disease [id number] 10/28/2019 12:00:00 AM [facility] E11.51 Type 2 diabetes mellitus wit h diabetic peripheral angiopathy without gangrene Type 2 diabetes mellitus with diabetic p Diagnosis 11/17/2020 02:04:02 PM [facility] I73.9 Peripheral vascular disease, unspecified Peripheral vascular disease, unspecified Diagnosis 11/17/2020 02:04:02 PM [facility] E78.00 Pure hypercholesterolemia, unspecified P ure hypercholesterolemia, unspecified Diagnosis 11/17/2020 02:04:02 PM [facility] I25.810 Atherosclerosis of coronary artery bypass graft(s) without angina pectoris Atherosclerosis of coronary artery bypas Diagnosis 11/17/2020 02:04:02 PM [facility] I48.92 Unspecified atrial flutter Unspecified atrial flutter Diagnosis 11/17/2020 02:04:02 PM [facility] I70.201 Unspecified atherosclerosis of [place] arteries of extremities, right leg Unspecified atherosclerosis of [place] arteries of extr emities, right leg Diagnosis 07/07/2020 12:29:03 PM [facility] Complete occlusion of right lower extrem ity. Complete occlusion of right lower extremity. Diagnosis 07/04/2020 08:22:00 PM [facility] Z48.02 Encounter for removal of sutures ENCOUNTER FOR R EMOVAL OF SUTURES Diagnosis 05/02/2020 11:00:[address] [facility] I70.209 Unspecified atherosclerosis of [place] arteries of extremities, unspecified extremity UNSP ATHSCL SQUAXIN ARTERIES OF EXTREMITI ES, UNSP EXTREMITY Diagnosis 05/02/2020 11:00:00 AM [facility] I70.209 Unspecified atherosclerosis of [place] arteries of extremities, unspecified extremity Unspecified atherosclerosis of [place] ar teries of extremities, unspecified extremity Diagnosis 04/02/2020 09:13:15 AM ED [facility] I10 Essential (primary) hypertension Essential (primary) h ypertension Diagnosis 04/02/2020 08:19:33 AM [facility] E11.9 Type 2 diabetes mellitus without complic ations Type 2 diabetes mellitus without complications Diagnosis 04/02/2020 08:19:[address] [facility] I73.9 Peripheral vascular disease, unspecified Peripheral vascular disease, unspecified Diagnosis 04/02/2020 08:19:33 AM [facility] R69 Illness, unspecified Illness, unspecified Diagnosis 04/02/2020 08:19:33 AM [facility] Arterial occlusion Arterial occlusion Diagnosis 0 08:19:33 AM [facility] L leg arterial occlusion L leg arterial occlusion Diag nosis 04/02/2020 06:00:23 AM [facility] I10 Essential (primary) hypertension Essential (primary) h ypertension Diagnosis 10/29/2019 01:44:35 PM EST [facility] Surgeries/Procedures Procedure Description Date Indications Data Source(s) POCT AMB EKG POCT AMB EKG Routine 11/18/2020 10:16 AM EST Atrial flutter, paroxysmal 11/18/2020 03:16:00 PM EST Atrial flutter, paroxysmal [facility] Atrial flutter, paroxysmal DEBRIDEMENT NAIL ANY METHOD 1-5 11/06/2020 12:00:00 AM EST [facility] ([facility] AMPUTATION THIGH THROUGH FEMUR ANY LEVEL 09/27/2020 12 :00:00 AM EST [facility] ([facility] TROPONIN QUANTITATIVE TROPONIN I Routine 09/23/2020 09/23/2020 12:00:00 AM EST [facility] THYROID STIMULATING HORMONE TSH TSH Routine 09/23/2020 09/23/2020 12:00:00 AM EST [facility] FINE NEEDLE ASPIRATION W/O IMAGING GUIDANCE 09/12/2020 12:00:00 AM EST eCW1 ([facility]) FINE NEEDLE ASPIRATION W/O IMAGING GUIDANCE 09/05/2020 12:00:00 AM EST eCW1 ([facility]) FINE NEEDLE ASPIRATION W/O IMAGING GUIDANCE 08/22/2020 12:00:00 AM EST eCW1 ([facility]) FINE NEEDLE ASPIRATION W/O IMAGING GUIDANCE 08/15/2020 12:00:00 AM EDT eCW1 ([facility]) PARING/CUTTING BENIGN HYPERKERATOTIC LESION 1 08/14/20 12:00:00 AM EDT [facility] ([facility] DEBRIDEMENT NAIL ANY METHOD 6/> 08/14/2020 12:00:00 AM EDT [facility] ([facility] FINE NEEDLE ASPIRATION W/O IMAGING GUIDANCE 08/08/2020 12:00:00 AM EDT eCW1 ([facility]) FINE NEEDLE ASPIRATION W/O IMAGING GUIDANCE 08/01/2020 12:00:00 AM EDT eCW1 ([facility]) FINE NEEDLE ASPIRATION W/O IMAGING GUIDANCE 07/25/2020 12:00:00 AM EDT eCW1 ([facility]) Ultrasound, Each 15 Min, Constant Attendance 0 12:00:00 AM EDT [facility] ([facility] ) THERAPEUTIC PX 1/> AREAS EACH 15 MIN EXERCISES 020 12:00:00 AM EDT [facility] ([facility] ) FINE NEEDLE ASPIRATION W/O IMAGING GUIDANCE 07/18/2020 12:00:00 AM EDT eCW1 ([facility]) Ultrasound, Each 15 Min, Constant Attendance 0 12:00:00 AM EDT [facility] ([facility]) THERAPEUTIC PX 1/> AREAS EACH 15 MIN EXERCISES 020 12:00:00 AM EDT [facility] ([facility]) POCT GLUCOSE, DOCKED POCT GLUCOSE, DOCKED Routine 07/07/2020 12:07 PM EDT 07[facility]07[facility], DOCKED POCT GLUCOSE, DOCKED Routine 07/07/2020 8:01 AM EDT 07/07/2020 08:01:00 AM [facility] BLOOD COUNT COMPLETE AUTO&AUTO DIFRNTL WBC COUNT CBC AND DIFFER ENTIAL Routine 07/07/2020 4:48 AM EDT 07/07/2020 04:48:00 AM [facility] GLUCOSE QUANTITATIVE BLOOD XCPT REAGENT STRIP POCT GLUCOSE, DOC KED Routine 07/06/2020 9:09 PM EDT 07/06/2020 09:09:00 PM [facility] GLUCOSE QUANTITATIVE BLOOD XCPT REAGENT STRIP POCT GLUCOSE, DOC KED Routine 07/06/2020 4:58 PM EDT 07/06/2020 04:58:00 PM [facility] GLUCOSE QUANTITATIVE BLOOD XCPT REAGENT STRIP POCT GLUCOSE, DOC KED Routine 07/06/2020 12:24 PM EDT 07/06/2020 12:24:00 PM [facility] GLUCOSE QUANTITATIVE BLOOD XCPT REAGENT STRIP POCT GLUCOSE, DOC KED Routine 07/06/2020 8:56 AM EDT 07/06/2020 08:56:00 AM [facility] GLUCOSE QUANTITATIVE BLOOD XCPT REAGENT STRIP POCT GLUCOSE, DOC KED Routine 07/06/2020 4:04 AM EDT 07/06/2020 04:04:00 AM [facility] BLOOD COUNT COMPLETE AUTO&AUTO DIFRNTL WBC COUNT CBC AND DIFFER ENTIAL Routine 07/06/2020 12:26 AM EDT 07/06/2020 12:26:00 AM [facility] GLUCOSE QUANTITATIVE BLOOD XCPT REAGENT STRIP POCT GLUCOSE, DOC KED Routine 07/06/2020 12:09 AM EDT 07/06/2020 12:09:00 AM [facility] GLUCOSE QUANTITATIVE BLOOD XCPT REAGENT STRIP POCT GLUCOSE, DOC LUDWIG Routine 07/05/2020 10:52 PM EDT 07/05/2020 10:52:00 PM [facility] GLUCOSE QUANTITATIVE BLOOD XCPT REAGENT STRIP POCT GLUCOSE, DOC KED Routine 07/05/2020 3:51 PM EDT 07/05/2020 03:51:00 PM [facility] GLUCOSE QUANTITATIVE BLOOD XCPT REAGENT STRIP POCT GLUCOSE, DOC LUDWIG Routine 07/05/2020 12:05 PM EDT 07/05/2020 12:05:00 PM [facility] GLUCOSE QUANTITATIVE BLOOD XCPT REAGENT STRIP POCT GLUCOSE, DOC KED Routine 07/05/2020 7:58 AM EDT 07/05/2020 07:58:00 AM [facility] BLOOD COUNT COMPLETE AUTOMATED CBC AND DIFFERENTIAL Routine 07/05/2020 4:55 AM EDT 07/05/2020 04:55:00 AM [facility] GLUCOSE QUANTITATIVE BLOOD XCPT REAGENT STRIP POCT GLUCOSE, DOC LUDWIG Routine 07/05/2020 4:28 AM EDT 07/05/2020 04:28:00 AM [facility] GLUCOSE QUANTITATIVE BLOOD XCPT REAGENT STRIP POCT GLUCOSE, DOC LUDWIG Routine 07/05/2020 12:29 AM EDT 07/05/2020 12:29:00 AM [facility] THROMBOPLASTIN TIME PARTIAL PLASMA/WHOLE BLOOD PARTIA L THROMBOPLASTIN TIME (PTT) Routine 07/04/2020 10:27 PM EDT 07/04/2020 10:27 :00 PM [facility] PROTHROMBIN TIME PROTIME INR Routine 07/04/2020 10:27 PM EDT 07/04/2020 10:27:00 PM [facility] BLOOD COUNT COMPLETE AUTO&AUTO DIFRNTL WBC COUNT CBC AND DIFFER ENTIAL Routine 07/04/2020 10:27 PM EDT 07/04/2020 10:27:00 PM [facility] BLOOD TYPING ABO TYPE AND SCREEN Routine 07/04/2020 10:27 PM EDT 07/04/2020 10:27:00 PM [facility] PHOSPHORUS INORGANIC PHOSPHORUS LEVEL Routine 07/04/2020 10:27 PM E DT 07/04/2020 10:27:00 PM [facility] MAGNESIUM MAGNESIUM LEVEL Routine 07/04/2020 10:27 PM EDT 07/04/2020 10:27:00 PM [facility] LIPASE LIPASE LEVEL Routine 07/04/2020 10:27 PM EDT 07/04/2020 10:27:00 PM [facility] LACTATE LACTIC ACID LEVEL, PLASMA Routine 07/04/2020 10:27 PM EDT 07/04/2020 10:27:00 PM [facility] BILIRUBIN DIRECT BILIRUBIN, DIRECT Routine 07/04/2020 10:27 PM EDT 07/04/2020 10:27:00 PM [facility] AMYLASE AMYLASE LEVEL Routine 07/04/2020 10:27 PM EDT 07/04/2020 10:27:00 PM [facility] COMPREHENSIVE METABOLIC PANEL COMPREHENSIVE METABOLIC PANEL Rou odalys 07/04/2020 10:27 PM EDT 07/04/2020 10:27:00 PM EDT [facility] THERAPEUTIC PX 1/> AREAS EACH 15 MIN EXERCISES 12:00:00 AM EDT [facility] ([facility] ) THERAPEUTIC PX 1/> AREAS EACH 15 MIN EXERCISES 12:00:00 AM EDT [facility] ([facility] ) THERAPEUTIC PX 1/> AREAS EACH 15 MIN EXERCISES 12:00:00 AM EDT [facility] ([facility] ) Physical Therapy Eval - Low Complexity 06/16/2020 12:0 0:00 AM EDT [facility] ([facility] ) X-Ray Spine Lumbosacral Complete Inc Bending Views Min Of 6 06/12/2020 12:00:00 AM EDT [facility] ([facility] ) PARING/CUTTING BENIGN HYPERKERATOTIC LESION 2-4 2019 12:00:00 AM EDT [facility] ([facility] DEBRIDEMENT NAIL ANY METHOD /> 06/05/2020 12:00:00 AM EDT [facility] ([facility] FINE NEEDLE ASPIRATION W/O IMAGING GUIDANCE 04/27/2020 12:00:00 AM EDT eCW1 ([facility]) POCT GLUCOSE, DOCKED POCT GLUCOSE, DOCKED Routine 04/12/2020 7:25 AM EDT 04/12/2020 11:25:00 AM [facility] GLUCOSE QUANTITATIVE BLOOD XCPT REAGENT STRIP POCT GLUCOSE, JAMES MUNROE Routine 04/11/2020 8:42 PM EDT 04/12/2020 12:42:00 AM [facility] GLUCOSE QUANTITATIVE BLOOD XCPT REAGENT STRIP POCT GLUCOSE, JAMES MUNROE Routine 04/11/2020 5:31 PM EDT 04/11/2020 09:31:00 PM [facility] UH COVID-19 PCR U[facility] COVID-19 PCR Routine 04/11/2020 3:00 PM EDT 04/11/2020 07:00:00 PM [facility] GLUCOSE QUANTITATIVE BLOOD XCPT REAGENT STRIP POCT GLUCOSE, JAMES MUNROE Routine 04/11/2020 11:54 AM EDT 04/11/2020 03:54:00 PM [facility] GLUCOSE QUANTITATIVE BLOOD XCPT REAGENT STRIP POCT GLUCOSE, JAMES MUNROE Routine 04/11/2020 7:45 AM EDT 04/11/2020 11:45:00 AM [facility] GLUCOSE QUANTITATIVE BLOOD XCPT REAGENT STRIP POCT GLUCOSE, JAMSE MUNROE Routine 04/10/2020 8:51 PM EDT 04/11/2020 12:51:00 AM [facility] GLUCOSE QUANTITATIVE BLOOD XCPT REAGENT STRIP POCT GLUCOSE, JAMES MUNROE Routine 04/10/2020 5:13 PM EDT 04/10/2020 09:13:00 PM [facility] GLUCOSE QUANTITATIVE BLOOD XCPT REAGENT STRIP POCT GLUCOSE, JAMES MUNROE Routine 04/10/2020 12:14 PM EDT 04/10/2020 04:14:00 PM [facility] GLUCOSE QUANTITATIVE BLOOD XCPT REAGENT STRIP POCT GLUCOSE, JAMES MUNROE Routine 04/10/2020 8:23 AM EDT 04/10/2020 12:23:00 PM [facility] GLUCOSE QUANTITATIVE BLOOD XCPT REAGENT STRIP POCT GLUCOSE, JAMES MUNROE Routine 04/09/2020 9:25 PM EDT 04/10/2020 01:25:00 AM [facility] GLUCOSE QUANTITATIVE BLOOD XCPT REAGENT STRIP POCT GLUCOSE, JAMES MUNROE Routine 04/09/2020 5:11 PM EDT 04/09/2020 09:11:00 PM [facility] GLUCOSE QUANTITATIVE BLOOD XCPT REAGENT STRIP POCT GLUCOSE, JAMES MUNROE Routine 04/09/2020 12:13 PM EDT 04/09/2020 04:13:00 PM [facility] GLUCOSE QUANTITATIVE BLOOD XCPT REAGENT STRIP POCT GLUCOSE, JAMES MUNROE Routine 04/09/2020 8:09 AM EDT 04/09/2020 12:09:00 PM [facility] GLUCOSE QUANTITATIVE BLOOD XCPT REAGENT STRIP POCT GLUCOSE, JAMES MUNROE Routine 04/08/2020 9:07 PM EDT 04/09/2020 01:07:00 AM [facility] GLUCOSE QUANTITATIVE BLOOD XCPT REAGENT STRIP POCT GLUCOSE, JAMES MUNROE Routine 04/08/2020 5:02 PM EDT 04/08/2020 09:02:00 PM [facility] GLUCOSE QUANTITATIVE BLOOD XCPT REAGENT STRIP POCT GLUCOSE, JAMES MUNROE Routine 04/08/2020 11:54 AM EDT 04/08/2020 03:54:00 PM [facility] GLUCOSE QUANTITATIVE BLOOD XCPT REAGENT STRIP POCT GLUCOSE, JAMES MUNROE Routine 04/08/2020 7:52 AM EDT 04/08/2020 11:52:00 AM [facility] GLUCOSE QUANTITATIVE BLOOD XCPT REAGENT STRIP POCT GLUCOSE, JAMES MUNROE Routine 04/07/2020 9:41 PM EDT 04/08/2020 01:41:00 AM [facility] GLUCOSE QUANTITATIVE BLOOD XCPT REAGENT STRIP POCT GLUCOSE, JAMES MUNROE Routine 04/07/2020 5:15 PM EDT 04/07/2020 09:15:00 PM [facility] GLUCOSE QUANTITATIVE BLOOD XCPT REAGENT STRIP POCT GLUCOSE, JAMES MUNROE Routine 04/07/2020 11:59 AM EDT 04/07/2020 03:59:00 PM [facility] GLUCOSE QUANTITATIVE BLOOD XCPT REAGENT STRIP POCT GLUCOSE, JAMES MUNROE Routine 04/07/2020 8:13 AM EDT 04/07/2020 12:13:00 PM [facility] BLOOD COUNT COMPLETE AUTOMATED CBC Routine 04/07/2020 6:06 A M EDT 04/07/2020 10:06:00 AM [facility] PHOSPHORUS INORGANIC PHOSPHORUS LEVEL Routine 04/07/2020 6:06 AM E DT 04/07/2020 10:06:00 AM [facility] MAGNESIUM MAGNESIUM LEVEL Routine 04/07/2020 6:06 AM EDT 04/07/2020 10:06:00 AM [facility] BASIC METABOLIC PANEL CALCIUM TOTAL BASIC METABOLIC PANEL Routi ne 04/07/2020 6:06 AM EDT 04/07/2020 10:06:00 AM EDT [facility] GLUCOSE QUANTITATIVE BLOOD XCPT REAGENT STRIP POCT GLUCOSE, DOC LUDWIG Routine 04/06/2020 10:32 PM EDT 04/07/2020 02:32:00 AM [facility] GLUCOSE QUANTITATIVE BLOOD XCPT REAGENT STRIP POCT GLUCOSE, DOC LUDWIG Routine 04/06/2020 5:28 PM EDT 04/06/2020 09:28:00 PM [facility] EKG 12-LEAD - CMAXX REPORT EKG 12-LEAD - CMAXX REPORT 04/06/2020 1:14 PM EDT 04/06/2020 05:14:41 PM EDT [facility] EKG 12-LEAD - CMAXX REPORT EKG 12-LEAD - CMAXX REPORT 04/06/2020 1:14 PM EDT 04/06/2020 05:14:41 PM EDT [facility] EKG 12-LEAD EKG 12-LEAD Routine 04/06/2020 1:14 PM EDT 04/06/2020 05:14:41 PM [facility] GLUCOSE QUANTITATIVE BLOOD XCPT REAGENT STRIP POCT GLUCOSE, JAMES MUNROE Routine 04/06/2020 12:03 PM EDT 04/06/2020 04:03:00 PM [facility] TROPONIN QUANTITATIVE TROPONIN T Timed 04/06/2020 11:35 AM EDT 04/06/2020 03:35:00 PM [facility] GLUCOSE QUANTITATIVE BLOOD XCPT REAGENT STRIP POCT GLUCOSE, DOC KED Routine 04/06/2020 8:00 AM EDT 04/06/2020 12:00:00 PM [facility] BLOOD COUNT COMPLETE AUTOMATED CBC Routine 04/06/2020 6:35 A M EDT 04/06/2020 10:35:00 AM [facility] PHOSPHORUS INORGANIC PHOSPHORUS LEVEL Routine 04/06/2020 6:35 AM E DT 04/06/2020 10:35:00 AM [facility] MAGNESIUM MAGNESIUM LEVEL Routine 04/06/2020 6:35 AM EDT 04/06/2020 10:35:00 AM [facility] BASIC METABOLIC PANEL CALCIUM TOTAL BASIC METABOLIC PANEL Routi ne 04/06/2020 6:35 AM EDT 04/06/2020 10:35:00 AM EDT [facility] TROPONIN QUANTITATIVE TROPONIN T Timed 04/06/2020 12:39 AM EDT 04/06/2020 04:39:00 AM [facility] GLUCOSE QUANTITATIVE BLOOD XCPT REAGENT STRIP POCT GLUCOSE, DOC KED Routine 04/05/2020 10:28 PM EDT 04/06/2020 02:28:00 AM [facility] GLUCOSE QUANTITATIVE BLOOD XCPT REAGENT STRIP POCT GLUCOSE, DOC KED Routine 04/05/2020 5:56 PM EDT 04/05/2020 09:56:00 PM [facility] TROPONIN QUANTITATIVE TROPONIN T Timed 04/05/2020 5:39 PM EDT 04/05/2020 09:39:00 PM [facility] ANGIOGRAPHY EXTREMITY UNILATERAL RS&I FLUORO ART LOWER EXTR EMITY-[place] 11376 Routine 04/05/2020 2:30 PM EDT Diagnosis unknown 04/05/2020 06:30:00 PM EDT Diagnosis unknown [facility] Diagnosis unknown BLOOD GASES ANY COMBINATION PH PCO2 PO2 CO2 HCO3 POCT ISTAT ARTERIAL CG8 Routine 04/05/2020 1:29 PM EDT 04/05/2020 05:29:00 PM [facility] COAGULATION TIME ACTIVATED POCT ISTAT ACT Routine 04/05/2020 1:19 PM EDT 04/05/2020 05:19:00 PM [facility] COAGULATION TIME ACTIVATED POCT ISTAT ACT Routine 04/05/2020 12:57 PM EDT 04/05/2020 04:57:00 PM [facility] BYPASS GRAFT, W/OTHER THAN VEIN; FEMORAL-POPLITEAL BY PASS GRAFT, W/OTHER THAN VEIN; FEMORAL-POPLITEAL 04/05/2020 9:09 AM EDT foot ulcer 04/05/2020 01:09:00 PM EDT - 04/05/2020 08:25:00 PM [facility] GLUCOSE QUANTITATIVE BLOOD XCPT REAGENT STRIP POCT GLUCOSE, DOC KED Routine 04/05/2020 7:45 AM EDT 04/05/2020 11:45:00 AM [facility] BLOOD COUNT COMPLETE AUTO&AUTO DIFRNTL WBC COUNT CBC AND DIFFER ENTIAL Routine 04/05/2020 2:54 AM EDT 04/05/2020 06:54:00 AM [facility] PHOSPHORUS INORGANIC PHOSPHORUS LEVEL Routine 04/05/2020 2:54 AM E DT 04/05/2020 06:54:00 AM [facility] MAGNESIUM MAGNESIUM LEVEL Routine 04/05/2020 2:54 AM EDT 04/05/2020 06:54:00 AM [facility] BASIC METABOLIC PANEL CALCIUM TOTAL BASIC METABOLIC PANEL Routi ne 04/05/2020 2:54 AM EDT 04/05/2020 06:54:00 AM EDT [facility] GLUCOSE QUANTITATIVE BLOOD XCPT REAGENT STRIP POCT GLUCOSE, JAMES MUNROE Routine 04/04/2020 8:09 PM EDT 04/05/2020 12:09:00 AM [facility] GLUCOSE QUANTITATIVE BLOOD XCPT REAGENT STRIP POCT GLUCOSE, DOC LUDWIG Routine 04/04/2020 5:23 PM EDT 04/04/2020 09:23:00 PM [facility] BLOOD TYPING ABO TYPE AND CROSSMATCH Routine 04/04/2020 2:08 PM ED T 04/04/2020 06:08:00 PM [facility] GLUCOSE QUANTITATIVE BLOOD XCPT REAGENT STRIP POCT GLUCOSE, JAMES MUNROE Routine 04/04/2020 11:53 AM EDT 04/04/2020 03:53:00 PM [facility] ECHO TTHRC R-T 2D W/WOM-MODE COMPL SPEC&COLR DOP ECHOCARDIO GRAM 2D COMPLETE STAT 04/04/2020 8:25 AM EDT 04/04/2020 12:25:16 PM [facility] GLUCOSE QUANTITATIVE BLOOD XCPT REAGENT STRIP POCT GLUCOSE, JAMES MUNROE Routine 04/04/2020 7:46 AM EDT 04/04/2020 11:46:00 AM [facility] CONFIRMATORY TYPE CONFIRMATORY TYPE Routine 04/04/2020 3:23 AM EDT 04/04/2020 07:23:00 AM [facility] BLOOD COUNT COMPLETE AUTO&AUTO DIFRNTL WBC COUNT CBC AND DIFFER ENTIAL Routine 04/04/2020 3:23 AM EDT 04/04/2020 07:23:00 AM [facility] PHOSPHORUS INORGANIC PHOSPHORUS LEVEL Routine 04/04/2020 3:23 AM E DT 04/04/2020 07:23:00 AM [facility] MAGNESIUM MAGNESIUM LEVEL Routine 04/04/2020 3:23 AM EDT 04/04/2020 07:23:00 AM [facility] BASIC METABOLIC PANEL CALCIUM TOTAL BASIC METABOLIC PANEL Routi ne 04/04/2020 3:23 AM EDT 04/04/2020 07:23:00 AM EDT [facility] GLUCOSE QUANTITATIVE BLOOD XCPT REAGENT STRIP POCT GLUCOSE, DOC KED Routine 04/03/2020 7:59 PM EDT 04/03/2020 11:59:00 PM [facility] GLUCOSE QUANTITATIVE BLOOD XCPT REAGENT STRIP POCT GLUCOSE, DOC KED Routine 04/03/2020 5:06 PM EDT 04/03/2020 09:06:00 PM [facility] GLUCOSE QUANTITATIVE BLOOD XCPT REAGENT STRIP POCT GLUCOSE, DOC KED Routine 04/03/2020 12:09 PM EDT 04/03/2020 04:09:00 PM [facility] GLUCOSE QUANTITATIVE BLOOD XCPT REAGENT STRIP POCT GLUCOSE, DOC KEJones Routine 04/03/2020 8:06 AM EDT 04/03/2020 12:06:00 PM [facility] NATRIURETIC PEPTIDE PROBNP Routine 04/03/2020 3:47 AM EDT 04/03/2020 07:47:00 AM [facility] BLOOD COUNT COMPLETE AUTO&AUTO DIFRNTL WBC COUNT CBC AND DIFFER ENTIAL Routine 04/03/2020 3:47 AM EDT 04/03/2020 07:47:00 AM [facility] PHOSPHORUS INORGANIC PHOSPHORUS LEVEL Routine 04/03/2020 3:47 AM E DT 04/03/2020 07:47:00 AM [facility] MAGNESIUM MAGNESIUM LEVEL Routine 04/03/2020 3:47 AM EDT 04/03/2020 07:47:00 AM [facility] BASIC METABOLIC PANEL CALCIUM TOTAL BASIC METABOLIC PANEL Routi ne 04/03/2020 3:47 AM EDT 04/03/2020 07:47:00 AM EDT [facility] GLUCOSE QUANTITATIVE BLOOD XCPT REAGENT STRIP POCT GLUCOSE, JAMES MAYERSD Routine 04/02/2020 8:52 PM EDT 04/03/2020 12:52:00 AM [facility] GLUCOSE QUANTITATIVE BLOOD XCPT REAGENT STRIP POCT GLUCOSE, DOC KED Routine 04/02/2020 5:03 PM EDT 04/02/2020 09:03:00 PM [facility] GLUCOSE QUANTITATIVE BLOOD XCPT REAGENT STRIP POCT GLUCOSE, DOC KED Routine 04/02/2020 1:24 PM EDT 04/02/2020 05:24:00 PM [facility] VASC LAB US DOPPLER LOWER EXTREMITY UNILATERAL VENOUS LTD [id number] VASC LAB US DOPPLER LOWER EXTREMITY UNILATERAL VENOUS LTD [id number] Routine 1:08 PM EDT Superficial femoral artery occlusion 04/02/2020 05:08:00 PM EDT Superficial femoral artery occlusion [facility] Superficial femoral artery occlusion [facility] COVID-19 PCR [facility] COVID-19 PCR Routine 04/02/2020 12:56 PM EDT 04/02/2020 04:56:00 PM EDT [facility] HEPARIN ASSAY ANTI-XA UNFRACTIONATED HEPARIN LEVEL Routine 04/02/2020 12:37 PM EDT 04/02/2020 04:37:00 PM EDT [facility] PROTHROMBIN TIME PROTIME INR Routine 04/02/2020 12:37 PM EDT 04/02/2020 04:37:00 PM EDT [facility] BLOOD COUNT COMPLETE AUTOMATED CBC Timed 04/02/2020 12:37 P M EDT 04/02/2020 04:37:00 PM EDT [facility] HEMOGLOBIN GLYCOSYLATED A1C HEMOGLOBIN A1C Routine 04/02/2020 12:37 PM EDT 04/02/2020 04:37:00 PM EDT [facility] GLUCOSE QUANTITATIVE BLOOD XCPT REAGENT STRIP POCT GLUCOSE, DOC KED Routine 04/02/2020 12:24 PM EDT 04/02/2020 04:24:00 PM EDT [facility] XR CHEST FRONTAL ONLY [id number] XR CHEST FRONTAL ONLY [id number] Routine 04/02/2020 12:22 PM EDT 04/02/2020 04:22:00 PM EDT [facility] EKG 12-LEAD - CMAXX REPORT EKG 12-LEAD - CMAXX REPORT 04/02/2020 12:16 PM EDT 04/02/2020 04:16:16 PM EDT [facility] EKG 12-LEAD - CMAXX REPORT EKG 12-LEAD - CMAXX REPORT 04/02/2020 12:16 PM EDT 04/02/2020 04:16:16 PM EDT [facility] EKG 12-LEAD EKG 12-LEAD Routine 04/02/2020 12:16 PM EDT 04/02/2020 04:16:16 PM EDT [facility] ANGIOGRAPHY EXTREMITY UNILATERAL RS&I IR FEMORAL ARTERIOGRAM Ro utine 04/02/2020 10:44 AM EDT 04/02/2020 02:44:39 PM EDT [facility] CHG ANGIO EXTREMITY UNILAT [[id number]] CHG ANGIO EXTREMITY UNILAT [ [id number]] 04/02/2020 9:56 AM EDT right leg occlusion 04/02/2020 01:56:00 PM EDT - 04/02/2020 03:2 4:00 PM T [facility] OPERATIVE AND PROCEDURE NOTE OPERATIVE AND PROCEDURE NOTE 04/02/2020 9:32 AM EDT 04/02/2020 01:32:14 PM EDT [facility] FINE NEEDLE ASPIRATION W/O IMAGING GUIDANCE 03/30/2020 12:00:00 AM EDT eCW1 ([facility]) PARING/CUTTING BENIGN HYPERKERATOTIC LESION 2-4 2019 12:00:00 AM EDT [facility] ([facility] DEBRIDEMENT NAIL ANY METHOD /> 03/27/2020 12:00:00 AM EDT [facility] ([facility] FINE NEEDLE ASPIRATION W/O IMAGING GUIDANCE 03/23/2020 12:00:00 AM EDT eCW1 ([facility]) INJECTION 1 TENDON SHEATH/LIGAMENT APONEUROSIS 12:00:00 AM EDT [facility] ([facility] INJECTION 1 TENDON SHEATH/LIGAMENT APONEUROSIS 12:00:00 AM EDT [facility] ([facility] ) THERAPEUTIC PX 1/> AREAS EACH 15 MIN EXERCISES 12:00:00 AM EDT [facility] ([facility]) MANUAL THERAPY TQS 1/> REGIONS EACH 15 MINUTES 12:00:00 AM EDT [facility] ([facility] ) MANUAL THERAPY TQS 1/> REGIONS EACH 15 MINUTES 12:00:00 AM EDT [facility] ([facility]) THERAPEUTIC PX 1/> AREAS EACH 15 MIN EXERCISES 12:00:00 AM EDT [facility] ([facility]) Office Visit, Est Pt., Level 3 PC 02/29/2020 12:00:00 AM EDT eCW1 ([facility]) Office Visit, Est Pt., Level 2 FC 02/29/2020 12:00:00 AM EDT eCW1 ([facility]) THERAPEUTIC PX 1/> AREAS EACH 15 MIN EXERCISES 12:00:00 AM EDT [facility] ([facility]) MANUAL THERAPY TQS 1/> REGIONS EACH 15 MINUTES 12:00:00 AM EDT [facility] ([facility]) THERAPEUTIC PX 1/> AREAS EACH 15 MIN EXERCISES 12:00:00 AM EDT [facility] ([facility]) MANUAL THERAPY TQS 1/> REGIONS EACH 15 MINUTES 12:00:00 AM EDT [facility] ([facility]) THERAPEUTIC PX 1/> AREAS EACH 15 MIN EXERCISES 12:00:00 AM EDT [facility] ([facility]) MANUAL THERAPY TQS 1/> REGIONS EACH 15 MINUTES 12:00:00 AM EDT [facility] ([facility]) THERAPEUTIC PX 1/> AREAS EACH 15 MIN EXERCISES 12:00:00 AM EDT [facility] ([facility] ) MANUAL THERAPY TQS 1/> REGIONS EACH 15 MINUTES 12:00:00 AM EDT [facility] ([facility]) THERAPEUTIC PX 1/> AREAS EACH 15 MIN EXERCISES 12:00:00 AM EDT [facility] ([facility]) MANUAL THERAPY TQS 1/> REGIONS EACH 15 MINUTES 12:00:00 AM EDT [facility] ([facility]) THERAPEUTIC PX 1/> AREAS EACH 15 MIN EXERCISES 12:00:00 AM EDT [facility] ([facility]) MANUAL THERAPY TQS 1/> REGIONS EACH 15 MINUTES 12:00:00 AM EDT [facility] ([facility]) THERAPEUTIC PX 1/> AREAS EACH 15 MIN EXERCISES 12:00:00 AM EDT [facility] ([facility]) MANUAL THERAPY TQS 1/> REGIONS EACH 15 MINUTES 12:00:00 AM EDT [facility] ([facility]) THERAPEUTIC PX 1/> AREAS EACH 15 MIN EXERCISES 12:00:00 AM EDT [facility] ([facility]) MANUAL THERAPY TQS 1/> REGIONS EACH 15 MINUTES 12:00:00 AM EDT [facility] ([facility]) THERAPEUTIC PX 1/> AREAS EACH 15 MIN EXERCISES 12:00:00 AM EDT [facility] ([facility]) MANUAL THERAPY TQS 1/> REGIONS EACH 15 MINUTES 12:00:00 AM EDT [facility] ([facility]) THERAPEUTIC PX 1/> AREAS EACH 15 MIN EXERCISES 12:00:00 AM EDT [facility] ([facility]) MANUAL THERAPY TQS 1/> REGIONS EACH 15 MINUTES 12:00:00 AM EDT [facility] ([facility]) THERAPEUTIC PX 1/> AREAS EACH 15 MIN EXERCISES 12:00:00 AM EDT [facility] ([facility]) MANUAL THERAPY TQS 1/> REGIONS EACH 15 MINUTES 12:00:00 AM EDT [facility] ([facility]) THERAPEUTIC PX 1/> AREAS EACH 15 MIN EXERCISES 12:00:00 AM EDT [facility] ([facility]) MANUAL THERAPY TQS 1/> REGIONS EACH 15 MINUTES 12:00:00 AM EDT [facility] ([facility]) Physical Therapy Eval - Low Complexity 01/12/2020 12:0 0:00 AM EDT [facility] ([facility]) Office Visit, Est Pt., Level 3 FC 12/23/2019 12:00:00 AM EST eCW1 ([facility]) PARING/CUTTING BENIGN HYPERKERATOTIC LESION 2-4 2019 12:00:00 AM EST [facility] ([facility] DEBRIDEMENT NAIL ANY METHOD /> 11/05/2019 12:00:00 AM EST [facility] ([facility] Results ID Date Data Source [id number] 12/05/2020 05:56:00 PM EST [facility] Name Value Range Interpretation Code Description Data Lisa rce(s) Supporting Document(s) CBC W/AUTOMATED DIFF [facility] COMPLETE BLOOD COUNT Leukocytes [#/volume] in Blood by Automated count 4.2 10^3/uL 4.2 - 1 1.0 [facility] Erythrocytes [#/volume] in Blood by Automated count 2.20 10^6/uL 4. 50 - 6.30 L [facility] Hemoglobin [Mass/volume] in Blood 6.7 g/dL 14.0 - 16.0 LL [facility] CALL/ READ BACK COSTA THOMASON [facility] BY: TAD [facility] DATE/TIME 12.05.20 152 [facility] pital Hematocrit [Volume Fraction] of Blood by Automated count 22.7 % 4 1.0 - 51.0 L [facility] Erythrocyte mean corpuscular volume [Entitic volume] b y Automated count 103.2 fL 80.0 - 94.0 H [facility] Erythrocyte mean corpuscular hemoglobin [Entitic mass] by Automated count 30.5 pg 27.0 - 34.0 [facility] Erythrocyte mean corpuscular hemoglobin concentration [Mass/volume] by Automated count 29.5 g/dL 31.0 - 36.0 L [facility] Erythrocyte distribution width [Ratio] by Automated count 16.7 % 11.5 - 14.8 H [facility] Platelets [#/volume] in Blood by Automated count 273 10^3/uL 150 - 45 0 [facility] Platelet mean volume [Entitic volume] in Blood by Automated count 9.4 fL 7.4 - 10.4 [facility] Neutrophils/100 leukocytes in Blood by Automated count 68.2 % 37. 0 - 80.0 [facility] Lymphocytes/100 leukocytes in Blood by Manual count 20.3 % 25.0 - 40.0 L [facility] Monocytes/100 leukocytes in Blood by Automated count 8.4 % 3.0 - 8.0 H [facility] Eosinophils/100 leukocytes in Blood by Automated count 2.4 % 0.0 - 7.0 [facility] Basophils/100 leukocytes in Blood by Automated count 0.2 % 0.0 - 2.0 [facility] %IG 0.5 % 0.0 - [facility] % 0.0 - 0.0 [facility] Neutrophils [#/volume] in Blood by Automated count 2.86 10^3/uL 2.00 - 6.90 [facility] Lymphocytes [#/volume] in Blood by Automated count 0.85 10^3/uL 0.60 - 3.40 [facility] Monocytes [#/volume] in Blood by Automated count 0.35 10^3/uL 0.00 - 0.90 [facility] Eosinophils [#/volume] in Blood by Automated count 0.10 10^3/uL 0.00 - 0.70 [facility] Basophils [#/volume] in Blood by Automated count 0.01 10^3/uL 0.00 - 0.20 [facility] #IG 0.02 10^3/uL 0.00 - 0.10 [facility] #NRBC 0.00 10^3/uL 0.00 - 0.00 [facility] MANUAL DIFF SEE BELOW [facility] ital Segmented neutrophils/100 leukocytes in Blood by Manual count 74 % 37 - 80 [facility] %LYMPH 23 % 25 - 40 L [facility] %MONO 2 % 3 - 8 [facility] %EOS 1 % 0 - 7 [facility] RBC MORPH SEE BELOW [facility] Anisocytosis [Presence] in Blood by Light microscopy 2+ RUBY L: NONE SEEN A [facility] HYPO 2+ NORMAL: NONE SEEN A [facility] { SICKLE CELL (NORMAL: NONE SEEN ) COMMENT: ID Date Data Source [id number] 12/01/2020 10:45:00 AM EST [facility] Name Value Range Interpretation Code Description Data Lisa rce(s) Supporting Document(s) SARS coronavirus 2 RNA Not Detected [facility] [place] This lab was ordered by [facility] and reported by [facility]. ID Date Data Source [id number] 10/03/2020 02:51:00 PM EST [facility] Name Value Range Interpretation Code Description Data Lisa rce(s) Supporting Document(s) SARS-CoV-2 (COVID 19) [facility] This lab was ordered by [facility] a nd reported by [facility]. ID Date Data Source [id number] 09/23/2020 06:31:00 AM EST [facility] Name Value Range Interpretation Code Description Data Lisa rce(s) Supporting Document(s) SARS coronavirus 2 RNA [Presence] in Res piratory specimen by LENIN with probe detection [facility] This lab was ordered by [facility] a nd reported by [facility]. ID Date Data Source ERYTHROCYTE SEDIMENTATION RATE 09/07/2020 12:00:00 AM EST eC W1 ([facility]) Name Value Range Interpretation Code Description Data Lisa rce(s) Supporting Document(s) 126 0-20 ERYTHROCYTE SEDIMENTATION RATE eCW1 ([facility]) ID Date Data Source C REACTIVE PROTEIN QUANTITATIV (At [facility]) 09/07/2020 12:00 :00 AM EST eCW1 ([facility]) Name Value Range Interpretation Code Description Data Lisa rce(s) Supporting Document(s) 0.94 0.00-0.30 C REACTIVE PROTEIN QUANTI TATIV eCW1 ([facility]) ID Date Data Source CBC with Differential 09/07/2020 12:00:00 AM EST eCW1 ([facility]) Name Value Range Interpretation Code Description Data Lisa rce(s) Supporting Document(s) 62.7 36.0-66.0 NEUTROPHILS % eCW1 ([facility]) 8.8 0.0-5.0 MONO % eCW1 ([facility]) 3.3 0.0-3.0 EOS % eCW1 ([facility]) 23.4 24.0-44.0 LYMPH % eCW1 ([facility]) 1.3 1.5-5.0 LYMPH # eCW1 ([facility]) 3.4 1.5-8.5 NEUTROPHILS # eCW1 ([facility]) 0.9 0.0-1.0 BASO % eCW1 ([facility]) 0.5 0.0-0.8 MONO # eCW1 ([facility]) 0.2 0.0-0.5 EOS # eCW1 ([facility]) 0.1 0.0-0.2 BASO # eCW1 ([facility]) 7.1 4.0-10.0 WHITE BLOOD COUNT eCW1 ([facility]) 3.09 4.30-6.10 RED BLOOD COUNT eCW1 ([facility]) 8.5 13.5-17.5 HEMOGLOBIN eCW1 ([facility]) 91.9 80.0-96.0 MEAN CORPUSCULAR VOLUME e CW1 ([facility]) 27.5 27.0-33.0 MEAN CORPUSCULAR HEMOGLOB IN eCW1 ([facility]) 28.4 42.0-52.0 HEMATOCRIT eCW1 ([facility]) 29.9 32.0-36.5 MEAN CORPUSCULAR HGB CONC eCW1 ([facility]) 351 150-450 PLATELET COUNT, AUTOMATED eCW1 ([facility]) 15.9 11.5-14.5 RED CELL DISTRIBUTION WID TH eCW1 ([facility]) ID Date Data Source Basic Metabolic Profile (BMP) 09/07/2020 12:00:00 AM EST eCW 1 ([facility]) Name Value Range Interpretation Code Description Data Lisa rce(s) Supporting Document(s) 1.38 0.70-1.30 CREATININE FOR GFR eCW1 ([facility]) 36 7-18 BLOOD UREA NITROGEN eCW1 ([facility]) 86 70-100 GLUCOSE, FASTING eCW1 ([facility]) 102 98-107 CHLORIDE LEVEL eCW1 ([facility]) 133 136-145 SODIUM LEVEL eCW1 ([facility]) 52.3 >35 GLOMERULAR FILTRATION RATE eCW 1 ([facility]) 5.5 3.5-5.1 POTASSIUM SERUM eCW1 ([facility]) 8.8 8.8-10.2 CALCIUM LEVEL eCW1 ([facility]) 21 21-32 CARBON DIOXIDE LEVEL eCW1 ([facility]) ID Date Data Source WOUND CULTURE AND GRAM ST 08/22/2020 12:00:00 AM EST eCW1 ([facility]) Name Value Range Interpretation Code Description Data Lisa rce(s) Supporting Document(s) WOUND CULTURE AND GRAM ST eCW1 ([facility]) ID Date Data Source [id number] 08/09/2020 12:00:00 PM EDT [facility] Name Value Range Interpretation Code Description Data Lisa rce(s) Supporting Document(s) SARS coronavirus 2 RNA [facility] This lab was ordered by [facility] and reported by [facility]. ID Date Data Source WOUND CULTURE 07/25/2020 03:09:10 AM EDT eCW1 ([facility]) Name Value Range Interpretation Code Description Data Lisa rce(s) Supporting Document(s) FULL REPORT IN LAB NOTES ([facility]CW and [facility]). WOUND CULTURE eCW1 ([facility]) ID Date Data Source Pathology Request For Service 07/25/2020 03:09:03 AM EDT eCW 1 ([facility]) Name Value Range Interpretation Code Description Data Lisa rce(s) Supporting Document(s) SKELETAL eCW1 ([facility]) ID Date Data Source [id number] 07/20/2020 03:52:00 PM EDT [facility] ([facility]) Name Value Range Interpretation Code Description Data Lisa rce(s) Supporting Document(s) Partial Thromboplastin Time 34.0 s 24.2-38.5 [facility] ([facility]) Prothrombin Time 14.1 s 12.5-14.3 [facility] ([facility]) Inr 1.07 [facility] ([facility]) THERAPUTIC HUMAN INR VALUES INDICATIONS NORMAL RANGES PROPHYLAXIS/TREATMENT OF: VENOUS THROMBOSIS 2.0-3.0 PULMONARY EMBOLISM 2.0-3.0 PREVENTION OF SYSTEMIC EMBOLISM FROM: TISSUE HEART VALVES 2.0-3.0 ACUTE MYOCARDIAL INFARCTION 2.0-3.0 VALVULAR HEART DISEASE 2.0-3.0 ATRIAL FIBRILLATION 2.0-3.0 MECHANICAL VALVES(HIGH RISK) 2.5-3.5 RECURRENT MYOCARDIAL INFARCTION 2.5-3.5 ID Date Data Source [id number] 07/20/2020 03:52:00 PM EDT [facility] ([facility]) Name Value Range Interpretation Code Description Data Lisa rce(s) Supporting Document(s) Prothrombin time (PT) Laboratory test result [facility] ([facility]) Platelets [#/volume] in Blood by Automated count 407 10 150-450 [facility] ([facility]) ID Date Data Source [id number] 07/14/2020 03:58:00 PM EDT [facility] ([facility]) Name Value Range Interpretation Code Description Data Lisa rce(s) Supporting Document(s) Erythrocyte sedimentation rate by Westergren method 61 mm/hr 0-20 [facility] ([facility]) C reactive protein [Mass/volume] in Serum or Plasma by High sensitivity method 0.58 mg/dL 0.00-0.30 [facility] ([facility]) ID Date Data Source [id number] 07/14/2020 03:58:00 PM EDT [facility] ([facility]) Name Value Range Interpretation Code Description Data Lisa rce(s) Supporting Document(s) White Blood Count 5.2 10 4.0-10.0 [facility] ([facility]) Red Blood Count 3.02 10 4.30-6.10 [facility] ([facility]) Hemoglobin 9.0 g/dL 13.5-17.5 [facility] ([facility]) Hematocrit 29.6 % 42.0-52.0 [facility] ([facility]) Mean Corpuscular Hemoglobin 29.8 pg 27.0-33.0 [facility] ([facility]) Mean Corpuscular Volume 98.0 fl 80.0-96.0 M EDENT ([facility]) Red Cell Distribution Width 15.4 % 11.5-14.5 [facility] ([facility]) Neutrophils % 58.6 % 36.0-66.0 [facility] Mean Corpuscular HGB Conc 30.4 g/dL 32.0-36.5 [facility] ([facility]) Platelet Count, Automated 286 10 150-450 [facility] ([facility]) Lymph % 26.6 % 24.0-44.0 [facility] Eos % 2.7 % 0.0-3.0 [facility]) Wilkin % 9.4 % 0.0-5.0 [facility] Baso % 0.6 % 0.0-1.0 [facility] Nucleated Red Blood Cell % 0.0 % 0-0 [facility] ([facility]) Immature Granulocyte % 2.1 % 0-3.0 [facility] ([facility]) Lymph # 1.4 10 1.5-5.0 [facility] Wilkin # 0.5 10 0.0-0.8 [facility] Neutrophils # 3.1 10 1.5-8.5 [facility] ([facility] Eos # 0.1 10 0.0-0.5 [facility] Baso # 0.0 10 0.0-0.2 [facility] ID Date Data Source [id number] 07/07/2020 03:41:[address] [facility] Name Value Range Interpretation Code Description Data Lisa rce(s) Supporting Document(s) Discharge Summary [facility] [id number] [facility] [file] [id number] ID Date Data Source [id number] [facility] Name Value Range Interpretation Code Description Data Lisa rce(s) Supporting Document(s) Glucose [Mass/volume] in Capillary blood by Glucometer 220 mg/dL 70- 140 H [facility] ID Date Data Source [id number] 07/07/2020 08:24:19 AM [facility] Name Value Range Interpretation Code Description Data Lisa rce(s) Supporting Document(s) Glucose [Mass/volume] in Capillary blood by Glucometer 177 mg/dL 70- 140 [facility] ID Date Data Source [id number] 07/07/2020 05:36:52 AM [facility] Name Value Range Interpretation Code Description Data Lisa rce(s) Supporting Document(s) Leukocytes [#/volume] in Blood by Automated count 4.2 10*3/uL 4-10 [facility] Erythrocytes [#/volume] in Blood by Automated count 2.95 10*6/uL 4.6- 6.1 L [facility] Hemoglobin [Mass/volume] in Blood 8.9 g/dL 13.5-18 L [facility] Hematocrit [Volume Fraction] of Blood by Automated count 27.6 % 4 1-53 L [facility] Erythrocyte mean corpuscular volume [Entitic volume] by Auto mated count 93.7 fL 80-96 [facility] Erythrocyte mean corpuscular hemoglobin [Entitic mass] by Automated count 30.3 pg 27-33 [facility] Erythrocyte mean corpuscular hemoglobin concentration [Mass/volume] by Automated count 32.3 g/dL 32.0-36.0 [facility] width [Ratio] by Automated count 15.8 % 11.5-14.5 H [facility] Platelets [#/volume] in Blood by Automated count 243 10*3/uL 150-400 [facility] Differential cell count method - Blood [facility] Neutrophils/100 leukocytes in Blood by Automated count 57 % [facility] Lymphocytes/100 leukocytes in Blood by Automated count 25 % [facility] Monocytes/100 leukocytes in Blood by Automated count 13 % [facility] Eosinophils/100 leukocytes in Blood by Automated count 4 % [facility] Basophils/100 leukocytes in Blood by Automated count 1 % [facility] Neutrophils [#/volume] in Blood by Automated count 2.49 10*3/uL 1.8-7 .0 [facility] Lymphocytes [#/volume] in Blood by Automated count 1.05 10*3/uL 1.2-4 .0 L [facility] Monocytes [#/volume] in Blood by Automated count 0.54 10*3/uL 0-0.8 [facility] Eosinophils [#/volume] in Blood by Automated count 0.15 10*3/uL 0-0.5 [facility] Basophils [#/volume] in Blood by Automated count 0.03 10*3/uL 0-0.2 [facility] Nucleated erythrocytes/100 leukocytes [Ratio] in Blood by Automated count 0 /100{WBCs} 0-0 [facility] ID Date Data Source [id number] 07/06/2020 09:12:33 PM [facility] Name Value Range Interpretation Code Description Data Lisa rce(s) Supporting Document(s) Glucose [Mass/volume] in Capillary blood by Glucometer 148 mg/dL 70- 140 H [facility] ID Date Data Source [id number] 07/06/2020 05:15:16 PM [facility] Name Value Range Interpretation Code Description Data Lisa rce(s) Supporting Document(s) [facility] [id number] lbm [file] [facility]+nhTKsikobRPqUEx/IPNqfNmSVmNXpIQU80BY39xMwYd2Ou6zZZc9In5kaU4R6pnwRHF680QXsobd [file] ICAgICAgICAgICAgICAgICAgICAgICAgICAgICAgICAgICAgICAgICAgICAgICAgICAgICAgICAgICAg ICAgICANCiAgICAgICAgICAgICAgICAgICAgICAgIC AgICAgICAgICAgICAgICAgICAgICAgICAgICAgICAgICAgICAgICAgICAgICAgICAgICAgICAgICAgIC AgICAgICAgICAgICAgICANCiAgICAgICAgICAgICAgICAgICAgICAgICAgICAgICAgICAgICAgICAgIC AgICAgICAgICAgICAgICAgICAgICAgICAgICAgICAg ICAgICAgICAgICAgICAgICAgICAgICAgICANCiAgICAgICAgICAgICAgICAgICAgICAgICAgICAgICAg ICAgICAgICAgICAgICAgICAgICAgICAgICAgICAgICAgICAgICAgICAgICAgICAgICAgICAgICAgICAg ICAgICAgICANCiAgICAgICAgICAgICAgICAgICAgIC AgICAgICAgICAgICAgICAgICAgICAgICAgICAgICAgICAgICAgICAgICAgICAgICAgICAgICAgICAgIC AgICAgICAgICAgICAgICAgICANCiAgICAgICAgICAgICAgICAgICAgICAgICAgICAgICAgICAgICAgIC AgICAgICAgICAgICAgICAgICAgICAgICAgICAgICAg ICAgICAgICAgICAgICAgICAgICAgICAgICAgICANCiAgICAgICAgICAgICAgICAgICAgICAgICAgICAg ICAgICAgICAgICAgICAgICAgICAgICAgICAgICAgICAgICAgICAgICAgICAgICAgICAgICAgICAgICAg ICAgICAgICAgICANCiAgICAgICAgICAgICAgICAgIC AgICAgICAgICAgICAgICAgICAgICAgICAgICAgICAgICAgICAgICAgICAgICAgICAgICAgICAgICAgIC AgICAgICAgICAgICAgICAgICAgICANCiAgICAgICAgICAgICAgICAgICAgICAgICAgICAgICAgICAgIC AgICAgICAgICAgICAgICAgICAgICAgICAgICAgICAg ICAgICAgICAgICAgICAgICAgICAgICAgICAgICAgICANCiAgICAgICAgICAgICAgICAgICAgICAgICAg ICAgICAgICAgICAgICAgICAgICAgICAgICAgICAgICAgICAgICAgICAgICAgICAgICAgICAgICAgICAg ICAgICAgICAgICAgICANCjw/mQNbM0ajfYOqkbQ3A4 hdTj7NFy6DHN6jl3GeDNGrEDomgsPyEquPMxRbYTUeTedSFry8MTzlRF3DuKApE4QmA2UxMNmoWZ8LJW UcRGMgrHMiWENrWDFlPvA7MDScAPmeBJ3VhHPrTKvgSCOoZRGgDoXkGPNnPKLkPQFpLZJnFHIZHI5XLq HvP9NuqW13KUEMTl5+KQwvdcXjLjwRWfR7JGCpa7Rd MFp3RF1IERBqPsjrc6JbRbbcRIELEHrfEH0DNRB9WDG6CRUqHm2TYFYzO015qqKbTP6VKr3IHzZvKO0x bl3IXxfkBTUrVnlWEwp2ASfyVP4PwOGoTRdBr55nzZu1wgPnfNYRIWDhvLRqRMWDFLL3xd4hRN1pTHLI MNNRI85VUbRsnFV2OcM3ZdUnDnOkNKF7ZZMwNH1nQW szIQ7JIML2NHrmTTRtQHWeM1pVOcWiYJZtKfKiaQxhFS9SGgHcE0XjuvRwsPXgYZJfOKBCGy4+DQplbm FhZlfUOlSiUDVyl2PzQLh3VF2BEYQpDIhbRT0VRLEvzS6cYSndLU1AHlVaAtEcZVYROrHtZ96ohIKvXR m2R8CbAjQzSDSxJfzfRGQdXVpxXnXtYJYsHxEmMIhv ID4+ID4+JLstZE3QQQluldCoEDBjUy8WLVEwFHNpUJ7rASTuDRDzS4P2yTkeUWKPGdAkU8mkgxejQS9w FCAlV464qOwsnfKiMJE3DQZjCs6PRBTdHPM2VLUdsYWuUwheUFCXODafKM3OpSWxXGZ8gS5nYVrkXSKw GGGdB5kBYoAmnTrcYE20oKxgwdZtwCLzPEb+Pg0KZW 5ps7LcMAc7gkKiAMqfDWNwLYxfRYCvODMaAFQcXYO6FHP9TZXTGuSlJILhWOUcWTijSPKeEDNvuy2GNC HcSRMeVkNrGDTvNHSsJSImEHroHAPiYSZ8HzH3IRQfDYYpLU6HZdAbWDAgCCApGBphTDZlXIZkgj1UGC CwZFRrAgAzOGRqLPWvAHBwWXjrYXKbDFFhOiB4BQHo APHwDR6VNzVqDVJdTBEkZMBrLTRdFOVaag5SLXShKATfHjP6JkGrAKCcDZKpADcxILByIANjXVf3GUZy VQCiSY3EXnDiDTIcUOKiAkexPAEiPUGpbl0CVXEkCQWiLQDaSeDbQKYmNWObUWctWRHoZGVxUkUpYHUp MLPgZN0GOdPqITZjIAGhBbBqAXOwOMCjpu3GRBEqAO OsRsZ6ZVZbGIMtZEQjIWsrUPTfTPZvNKGtTZGiQBKyKO8DBnFqGQMkWDF6HEElKEHfDNCrtz9BNYLvZR VrWiihNVWrRCQrVDMsXBpkMCIkOGStLPDdQKUjCCVaXF6ADyTpNGCoRkGhUStkMDCrGOOnud2QXLUaOX XnKVKtMVBrFMOqGPOxUDfpOUCuAGT4PLF4KIOpLBDj QV4GDgDeELTeReYoXNLmXULoXUWgps1AGIFkTVLcQoT0HRNbKCLgEUSjAAdxSJGfGDU7AZXkSFWkNQMv GG0KVjYzJDZdKraqIrCvTKQgUPBsaw8OWSDlODIyRzAzUBPcDGHrTTBnNPlyFNRrKQC5ZYC6UAWrSKSv UM2SHzDjPUPgJevyKDVbKNNtPKRhsa1XMLRpBWFfWM I4QOBdHIKfOUEbDAfwQAHfUIZ7UcQ0TKOhKEUtWK8ROkSxHBbfXAQHNwr9LLotB2p2PGGeSH4HP8Nnm0 TeAjEdAUEYLTegPO3hfsHfEQFsLy3US1uDEdd9CjjzL1DxViXzRFW3LlR0LRk6TcY8BKJ5QOF8RHIaNH 8vONmlOnLnBaLrVXL6ZEd3MSm7EZaqEKk4Vti4MHgt RoBkOmSjDK7TBs2BGmQ3JOR2xFIbGf6WHsn6HCNBKuCeJC8MOQn= ID Date Data Source [id number] 07/06/2020 05:00:55 PM EDT [facility] Value Range Interpretation Code Description Data Lisa rce(s) Supporting Document(s) Glucose [Mass/volume] in Capillary blood by Glucometer 151 mg/dL 70- 140 [facility] ID Date Data Source [id number] [facility] Description Data Lisa rce(s) Supporting Document(s) Glucose [Mass/volume] in Capillary blood by Glucometer 134 mg/dL 70- 140 [facility] ID Date Data Source [id number] [facility] Code Description Data Lisa rce(s) Supporting Document(s) Glucose [Mass/volume] in Capillary blood by Glucometer 141 mg/dL 70- 140 [facility] ID Date Data Source [id number] 07/06/2020 06:48:[address] [facility] Name Value Range Interpretation Code Description Data Lisa rce(s) Supporting Document(s) History and Physical [facility] XOOVPb4sXmBVGpMl53/TJHrvLKWwx9CrCYokBQs1AJgfMSWgI2MvRQC4lA9oYCV7OBjGZlVmEdIhAKL1 m [file] AgICAgICAgICAgICAgICAgICAgICAgICAgICAgICAg ICAgICAgICAgICAgICAgICAgICAgICAgICAgICAgICAgICAgICAgICAgICAgICAgICAgICAgICAgICAg XQByUJ1IPIMeGFJdLGHfYKVfNKNjZKBzLKYuDWLpAQBjUOTeTLNyMCIcACNoONHfLLZlEZIbOGMeKABz ICAgICAgICAgICAgICAgICAgICAgICAgICAgICAgIC VqLMObXIQtTBDuSDGnKK8TAALgBRApHRBqSLOyKESpGMDkYUZsBMPfISWiRELxBFKmXQDzRQJwVCWwDZ FyCOCqLSZqNTTdAUZsMUOlSDWcRVFxBHLbYFBmJUTeDYYiENLeVNWiMCUdSPKyHWXnECJmJJTcKU1MQD AgICAgICAgICAgICAgICAgICAgICAgICAgICAgICAg ICAgICAgICAgICAgICAgICAgICAgICAgICAgICAgICAgICAgICAgICAgICAgICAgICAgICAgICAgICAg PQNiINUxYZ7ZDOTxCCWdOYMpNCIfOHThMGXiPHJkJMKaBFJyWFCtQNOwTKGdHVVfOAZvQZByXWMrPSEm ICAgICAgICAgICAgICAgICAgICAgICAgICAgICAgIC ExVBWoGEDsEUJoSXCnNGChEY0AVNHdMSYtRQRvUADpIBRgYMSqGRTcHKJcMITsCVBlBRRiZMFwLHAkFE AgICAgICAgICAgICAgICAgICAgICAgICAgICAgICAgICAgICAgICAgICAgICAgICAgICAgICAgICAgIA 0KICAgICAgICAgICAgICAgICAgICAgICAgICAgICAg ICAgICAgICAgICAgICAgICAgICAgICAgICAgICAgICAgICAgICAgICAgICAgICAgICAgICAgICAgICAg DEWmDGPvYECzQT9QLLJmELWhKIJuWQQqLMTpUPSlQKLnEQXkKBRwNMBuDNZtZQZlLDIdPKVnFEMdKNMr ICAgICAgICAgICAgICAgICAgICAgICAgICAgICAgIC NiUSAfAQSpEQYrEFQrVIVrJMWqFX6ZCAUfDCWhCNNzREPnASLtWTBlCDNzNAGeBFVrOYQmCDYsCVYkRN AgICAgICAgICAgICAgICAgICAgICAgICAgICAgICAgICAgICAgICAgICAgICAgICAgICAgICAgICAgIC MgDY4RCW35qZPfa8U6ZVFeBJ9nbbg/Sg7RRJwqgoKf lDAvID7GPlTzSI0tfk9XGtUnBK8lrd7VPLvVRaCyH8U6eLKnTUHcYNYKEmGuG17uNTqhVe02KHwvCJVs PzYaQOk4Uo8OXpSnJ1gzXXFsRkE6KMTaCkU4EKCqBmC6UGWuPrJeEYZwHMAcVVLlOCRVQYI2WEZdWvUv RSkuMU3Pd5AidUR4NKb+Cu7SMU5vd0HjQCwlSYGoWC 8xrh7WMNlNJgKeG2BmexE7DJR6YFLzFb5QSDPgDPYemRTqVYKrFVINSaVtO2HchD67KJWVSg0+DQplbm JhKqkFVhD7AIYwu4ToONy5ON4AHFZsHSk5gMZdEYAGELQ6YAkcglhlXwOHuMLpKxTlnshwGBHlRMDzYJ 4nIL6vNCDyZCX6EhS5VCXAFQ6ERKFrYBEipULvACSj OJBPCR1AWPedUEY7RHHzmbKbyMPhVMwjEO4RRATgdwLsZvhfDNBSWMt+Wh5SFF8wd3BhFYf6DERvFK0o ld4DQOrBOxNhM0B4pYQnI7F5UJizUs8FAIArNEQrWoVkYUTXREclKF2ITH3mgoH9ZK6MsRZeQMOdSQYn oNLzFDu5F14caQLfBAehQY9BBRD+Chintan+Gn2YDRHtEG LnQATdYtWnYDDWEcUuN1KzA5STs7HtF9NxZA19cGspykAqOIwrAL8CHP5jQJFlBIYHNC6JnEXmyQ3ult XaYLDmTHXEIuRvE91isIFnHEVuUNV1UUTxRe3MYWXsA3YufdKweCgauiTlQIEkNJZWRO9OVJqglnRloA LkcWoqOO07jKbmKV2CGa1OEeNvFP4fpq7NoUTdMm9K WUA2LQ4JZNClKCZdNINdUOF8XVBnPiQlHNedJPClEDHcCNL7QRVcQAEnAW9OPyIiMHJcPvQ1FMynPMGh SXZmvg3QGXUrMOGjBgF5YFVaDHFrHZUnPBzpSITjBCUyIQW8PKQkKYTyEH5DNjJmQYOsGAY4EORwJBOy BTFuwb3RSUIsUMZdAgT3GGCpWYKoBCSjZLubKDUdRM Q0OPD6IMDuWTXpDT3NIuUrLQYcSPEbMvSzMHNgYBMcxm7JZZUoVPFaEJVtDHAuQVMbEFTrYYgaLABkBQ O7ZqB6QLSsPYPxOF5TNvOcYXTxLHDfADzmUAAwCILjfh7WDEPwVNOiKuLsAAOcFAUqDHVbXGtpQFHwZP X0UIh8UWGyRTDtUY6NRwVvLUPaOZM3MNNkBZJfFXXc oj5AVSGrRJEgMmQcHZKhTLIcQXGeZWyiPWIjKKF3JVBzEJXcRHKwWW2YTmKqJWHlSSv3VyDqISUlZSLh vq7FBQFgQDLlXyX1EwNwEMQcHQMmOUzcNKYnXJE8ETJeXLNtGDFiZD0APmTwJSDnCQt5ZLrkNMEdVYGv ah9AOBGlFPYcEEJrAWXtXFTaBHDjFMzqQWDkJJF9IB v2GEWbDFAsXE4VMwYlOJRlHwUcRJinPRZdRKEgjr8WKRFwEFHaGFT8DBWxUYXkGVUnJHqcGUQbCMYkZG C9VJFwTGPaCW6LPqIcIKHxHwU9EPdjOHHpZYDydc8RVMNvKTFsLDcgYFFmPZBmZYZbYOcoRMHfFVDoEB l3ZWIlZBJbPJ7JVvJcOEObLsOuLoYwNZHiGZUtdq9P SOKtANTbKiW4JKMrQGXdKDRlEVqdGESvWIHcLGIgWDPoYFVmWH8YFnQlKALdEhGpLylvNUDgXZQrma1F EURcJBBuNBA8UKNrBDKvKVUdMGuqBBHrCSK6EYF9XAFlIFUbPT8CZrQvVPKoItErKQenURRiFZRcah0V QVHgGNQlQSC6VKQsVFNtQUQwCFzpJURiZYQ3XAG0FY WdPOYzCC3RTkPjZLHsVoo7QXBjNTCaUNJeua0EHRMoWDBrKmV8AjJhSFLgGXSgBCgtQSDsNZY7TbM2VU SmRFZpCR7YLhMwMNqjODYKKbm7ZGmqE3o8HQF0OT1DW3Rzm8JqCKHlMJWWJFuxSP6kytDaOAZaCf9GO6 dUFhsgYPQbRARqPWWqGse9LXA2EUioMSG7SFB1L8M9 XvEgMZ7fJFQ8UiW3HPGoQPOdMBTzALE9EWP4MKVuQEk2EsMoEYM9HzZxVJ3UNi4QCgY0VYS8bBUrBk8X Ogq7NbxLBwXuFI5BASl= ID Date Data Source [id number] 07/06/2020 04:06:[address] [facility] Name Value Range Interpretation Code Description Data Lisa rce(s) Supporting Document(s) Glucose [Mass/volume] in Capillary blood by Glucometer 128 mg/dL 70- 140 [facility] ID Date Data Source [id number] 07/06/2020 12:59:51 AM [facility] Name Value Range Interpretation Code Description Data Lisa rce(s) Supporting Document(s) Leukocytes [#/volume] in Blood by Automated count 5.8 10*3/uL 4-10 [facility] Erythrocytes [#/volume] in Blood by Automated count 3.06 10*6/uL 4.6- 6.1 [facility] Hemoglobin [Mass/volume] in Blood 9.4 g/dL 13.5-18 [facility] Hematocrit [Volume Fraction] of Blood by Automated count 29.0 % 4 1-53 [facility] Erythrocyte mean corpuscular volume [Entitic volume] by Auto mated count 94.9 fL 80-96 [facility] Erythrocyte mean corpuscular hemoglobin [Entitic mass] by Automated count 30.7 pg 27-33 [facility] Erythrocyte mean corpuscular hemoglobin concentration [Mass/volume] by Automated [facility] 32.4 g/dL 32.0-[facility] width [Ratio] by Automated count 16.8 % 11.5-14.5 [facility] Platelets [#/volume] in Blood by Automated count 268 10*3/uL 150-400 [facility] Differential cell count method - Blood [facility] Neutrophils/100 leukocytes in Blood by Automated count 61 % [facility] Lymphocytes/100 leukocytes in Blood by Automated count 25 % [facility] Monocytes/100 leukocytes in Blood by Automated count 10 % [facility] Eosinophils/100 leukocytes in Blood by Automated count 3 % [facility] Basophils/100 leukocytes in Blood by Automated count 1 % [facility] Neutrophils [#/volume] in Blood by Automated count 3.58 10*3/uL 1.8-7 .0 [facility] Lymphocytes [#/volume] in Blood by Automated count 1.44 10*3/uL 1.2-4 .0 [facility] Monocytes [#/volume] in Blood by Automated count 0.55 10*3/uL 0-0.8 [facility] Eosinophils [#/volume] in Blood by Automated count 0.16 10*3/uL 0-0.5 [facility] Basophils [#/volume] in Blood by Automated count 0.04 10*3/uL 0-0.2 [facility] Nucleated erythrocytes/100 leukocytes [Ratio] in Blood by Automated count 0 /100{WBCs} 0-0 [facility] ID Date Data Source [id number] 07/06/2020 12:38:15 AM [facility] Value Range Interpretation Code Description Data Lisa rce(s) Supporting Document(s) Glucose [Mass/volume] in Capillary blood by Glucometer 151 mg/dL 70- 140 [facility] ID Date Data Source [id number] 07/05/2020 10:53:59 PM [facility] Value Range Interpretation Code Description Data Lisa rce(s) Supporting Document(s) Glucose [Mass/volume] in Capillary blood by Glucometer 176 mg/dL 70- 140 [facility] ID Date Data Source [id number] 07/05/2020 03:52:42 PM [facility] Value Range Interpretation Code Description Data Lisa rce(s) Supporting Document(s) Glucose [Mass/volume] in Capillary blood by Glucometer 128 mg/dL 70- 140 [facility] ID Date Data Source [id number] 07/05/2020 12:21:14 PM [facility] Value Range Interpretation Code Description Data Lisa rce(s) Supporting Document(s) Glucose [Mass/volume] in Capillary blood by Glucometer 140 mg/dL 70- 140 [facility] ID Date Data Source [id number] 07/05/2020 08:13:51 AM [facility] Value Range Interpretation Code Description Data Lisa rce(s) Supporting Document(s) Glucose [Mass/volume] in Capillary blood by Glucometer 131 mg/dL 70- 140 [facility] ID Date Data Source [id number] 07/05/2020 07:40:[address] [facility] Name Value Range Interpretation Code Description Data Lisa rce(s) Supporting Document(s) Leukocytes [#/volume] in Blood by Automated count 5.3 10*3/uL 4-10 [facility] Erythrocytes [#/volume] in Blood by Automated count 2.89 10*6/uL 4.6- 6.1 [facility] Hemoglobin [Mass/volume] in Blood 8.7 g/dL 13.5-18 [facility] Hematocrit [Volume Fraction] of Blood by Automated count 27.0 % 4 1-53 [facility] Erythrocyte mean corpuscular volume [Entitic volume] by Auto mated count 93.5 fL 80-96 [facility] Erythrocyte mean corpuscular hemoglobin [Entitic mass] by Automated count 30.2 pg 27-33 [facility] Erythrocyte mean corpuscular hemoglobin concentration [Mass/volume] by Automated count 32.3 g/dL 32.0-36.0 [facility] width [Ratio] by Automated count 16.5 % 11.5-14.5 [facility] Platelets [#/volume] in Blood by Automated count 251 10*3/uL 150-400 [facility] Differential cell count method - Blood [facility] Neutrophils/100 leukocytes in Blood by Automated count 63 % [facility] Lymphocytes/100 leukocytes in Blood by Automated count 26 % [facility] Monocytes/100 leukocytes in Blood by Automated count 10 % [facility] Eosinophils/100 leukocytes in Blood by Automated count 1 % [facility] Neutrophils [#/volume] in Blood by Automated count 3.32 10*3/uL 1.8-7 .0 [facility] Lymphocytes [#/volume] in Blood by Automated count 1.39 10*3/uL 1.2-4 .0 [facility] Monocytes [#/volume] in Blood by Automated count 0.55 10*3/uL 0-0.8 [facility] Eosinophils [#/volume] in Blood by Automated count 0.05 10*3/uL 0-0.5 [facility] Anisocytosis [Presence] in Blood by Light microscopy [facility] ID Date Data Source [id number] 07/05/2020 06:10:07 AM [facility] Name Value Range Interpretation Code Description Data Lisa rce(s) Supporting Document(s) Glucose [Mass/volume] in Capillary blood by Glucometer 128 mg/dL 70- 140 [facility] ID Date Data Source [id number] 07/05/2020 12:32:26 AM [facility] Name Value Range Interpretation Code Description Data Lisa rce(s) Supporting Document(s) Glucose [Mass/volume] in Capillary blood by Glucometer 230 mg/dL 70- 140 [facility] ID Date Data Source [id number] 07/04/2020 11:55:50 PM [facility] Name Value Range Interpretation Code Description Data Lisa rce(s) Supporting Document(s) ABO and Rh group [Type] in Blood [facility] Blood group antibody screen [Presence] in Serum or Plasma [facility] Blood bank comment [facility] ID Date Data Source [id number] 07/04/2020 11:07:45 PM [facility] Value Range Interpretation Code Description Data Lisa rce(s) Supporting Document(s) Leukocytes [#/volume] in Blood by Automated count 6.5 10*3/uL 4-10 [facility] Erythrocytes [#/volume] in Blood by Automated count 3.02 10*6/uL 4.6- 6.1 [facility] Hemoglobin [Mass/volume] in Blood 9.3 g/dL 13.5-18 L [facility] Hematocrit [Volume Fraction] of Blood by Automated count 28.7 % 4 1-53 [facility] Erythrocyte mean corpuscular volume [Entitic volume] by Auto mated count 94.8 fL 80-96 [facility] Erythrocyte mean corpuscular hemoglobin [Entitic mass] by Automated count 30.7 pg 27-33 [facility] Erythrocyte mean corpuscular hemoglobin concentration [Mass/volume] by Automated count 32.4 g/dL 32.0-36.0 [facility] distribution width [Ratio] by Automated count 16.5 % 11.5-14.5 [facility] Platelets [#/volume] in Blood by Automated count 283 10*3/uL 150-400 [facility] Differential cell count method - Blood [facility] Neutrophils/100 leukocytes in Blood by Automated count 63 % [facility] Lymphocytes/100 leukocytes in Blood by Automated count 25 % [facility] Monocytes/100 leukocytes in Blood by Automated count 9 % [facility] Eosinophils/100 leukocytes in Blood by Automated count 2 % [facility] Basophils/100 leukocytes in Blood by Automated count 1 % [facility] Neutrophils [#/volume] in Blood by Automated count 4.14 10*3/uL 1.8-7 .0 [facility] Lymphocytes [#/volume] in Blood by Automated count 1.58 10*3/uL 1.2-4 .0 [facility] Monocytes [#/volume] in Blood by Automated count 0.55 10*3/uL 0-0.8 [facility] Eosinophils [#/volume] in Blood by Automated count 0.16 10*3/uL 0-0.5 [facility] Basophils [#/volume] in Blood by Automated count 0.04 10*3/uL 0-0.2 [facility] Nucleated erythrocytes/100 leukocytes [Ratio] in Blood by Automated count 0 /100{WBCs} 0-0 [facility] ID Date Data Source [id number] 07/04/2020 11:18:00 PM [facility] Value Range Interpretation Code Description Data Lisa rce(s) Supporting Document(s) Prothrombin time (PT) 13.3 s 12.5-14.9 [facility] INR in Platelet poor plasma by Coagulation assay 1.00 [facility] Routine intensity oral anticoagulation I NR is typically 2.0-3.0. Target INR must be clinically individualized. ID Date Data Source [id number] 07/04/2020 11:18:00 PM [facility] Value Range Interpretation Code Description Data Lisa rce(s) Supporting Document(s) aPTT in Platelet poor plasma by Coagulation assay 27.9 s 24.0-33. 0 [facility] ID Date Data Source 07/04/2020 11:34:21 PM [facility] Value Range Interpretation Code Description Data Lisa rce(s) Supporting Document(s) Bilirubin.direct [Mass/volume] in Serum or Plasma <0.3 [facility] ID Date Data Source 07/04/2020 11:34:21 PM [facility] Value Range Interpretation Code Description Data Lisa rce(s) Supporting Document(s) Albumin [Mass/volume] in Serum or Plasma by Bromocresol green (BCG) dye binding method 3.7 g/dL 3.5-5.2 [facility] Bilirubin.total [Mass/volume] in Serum or Plasma 0.3 mg/dL <1.2 [facility] Calcium [Mass/volume] in Serum or Plasma 8.1 mg/dL 8.8-10.2 L [facility] Chloride [Moles/volume] in Serum or Plasma 105 mmol/L 98-107 [facility] Creatinine [Mass/volume] in Serum or Plasma 1.07 mg/dL 0.70-1.20 [facility] Glucose [Mass/volume] in Serum or Plasma 133 mg/dL 70-140 [facility] Alkaline phosphatase [Enzymatic activity/volume] in Serum or Plasma 45 U/L 40-129 [facility] Potassium [Moles/volume] in Serum or Plasma 4.4 mmol/L 3.4-5.1 [facility] Protein [Mass/volume] in Serum or Plasma 6.5 g/dL 6.4-8.3 [facility] Sodium [Moles/volume] in Serum or Plasma 138 mmol/L 136-145 [facility] Aspartate aminotransferase [Enzymatic activity/volume] in Serum or Plasma 24 U/L <40 [facility] Urea nitrogen [Mass/volume] in Serum or Plasma 19 mg/dL 8-23 [facility] Osmolality of Serum or Plasma by calculation 290 mosm/kg 275-300 [facility] Creatinine/Urea nitrogen [Mass Ratio] in Serum or Plasma 18 [facility] Bicarbonate [Moles/volume] in Serum 23 mmol/L 22-29 [facility] Alanine aminotransferase [Enzymatic activity/volume] in Seru m or Plasma 32 U/L <41 [facility] Anion gap 3 in Serum or Plasma 10 mmol/L 8-15 [facility] Glomerular filtration rate/1.73 sq M pre dicted among non-blacks [Volume Rate/Area] in Serum or Plasma by Creatinine-based formula (MDRD) >6 0 [facility] Glomerular filtration rate/1.73 sq M pre dicted among blacks [Volume Rate/Area] in Serum or Plasma by Creatinine-based formula (MDRD) >60 [facility] ID Date Data Source [id number] 07/04/2020 11:34:21 PM EDT [facility] Name Value Range Interpretation Code Description Data Lisa rce(s) Supporting Document(s) Amylase [Enzymatic activity/volume] in Serum or Plasma 100 U/L 28- 103 [facility] ID Date Data Source [id number] 07/04/2020 11:34:21 PM EDT [facility] Value Range Interpretation Code Description Data Lisa rce(s) Supporting Document(s) Magnesium [Mass/volume] in Serum or Plasma 1.8 mg/dL 1.6-2.4 [facility] ID Date Data Source [id number] 07/04/2020 11:34:21 PM EDT [facility] Value Range Interpretation Code Description Data Lisa rce(s) Supporting Document(s) Lipase [Enzymatic activity/volume] in Serum or Plasma 70 U/L 13-6 0 [facility] ID Date Data Source [id number] 07/04/2020 11:34:21 PM EDT [facility] Value Range Interpretation Code Description Data Lisa rce(s) Supporting Document(s) Phosphate [Mass/volume] in Serum or Plasma 2.5 mg/dL 2.5-4.5 [facility] ID Date Data Source [id number] 07/04/2020 11:18:31 PM EDT [facility] Value Range Interpretation Code Description Data Lisa rce(s) Supporting Document(s) Lactate [Moles/volume] in Serum or Plasma 1.6 mmol/l 0.5-2.2 [facility] ID Date Data Source [id number] 06/22/2020 12:00:00 AM EDT [facility] Patient Name: LOC GUTIERREZ [id number] [facility] Date of : 1935 3 Date of Exam: 06/22/2020TAN [place] [id number]#: Fax: [phone] EXAM: MRI LUMBAR SPINE WITHOUT&WITH [...] rce(s) Supporting Document(s) ID Date Data Source [id number] 06/14/2020 01:20:00 PM EDT [facility] ([facility]) Name Value Range Interpretation Code Description Data Lisa rce(s) Supporting Document(s) Creatinine For GFR 1.19 mg/dL 0.70-1.30 [facility] ([facility]) Glomerular Filtration Rate [facility] <content>Units are mL/min/1.73 m2</content>
<content></content>
<content>Chronic Kidney Disease Staging per NKF:</content>
<content></content>
<content>Stage I & II GFR >=60 Normal to Mildly Decreased</content>
<content>Stage III GFR 30- 59 Moderately Decreased</content>
<content>Stage IV GFR 15-29 Severely Decreased</content>
<content>Stage V GFR <15 Very Little GFR Left</content>
<content>ESRD GFR <15 on OIL WELL CABLE TOOL DRILLER</content>
<content></content> ID Date Data Source [id number] 06/14/2020 01:20:00 PM EDT [facility] ([facility]) Name Value Range Interpretation Code Description Data Lisa rce(s) Supporting Document(s) Urea nitrogen [Mass/volume] in Serum or Plasma 20 mg/dL 7-18 [facility] ID Date Data Source [id number] 04/14/2020 02:56:[address] [facility] Name Value Range Interpretation Code Description Data Lisa rce(s) Supporting Document(s) History and Physical [facility] [id number]/UXVvhVKAft0OyBOfoOFb3EQusJPAkP7QhTFY3iZ9vBJM9AXzINdLhWyAcUiE5 [facility] [file] ICAgICAgICAgICAgICAgICAgICAgICAgICAgICAgIC AgICAgICAgICAgICAgICAgICAgICAgICAgICAgICAgICAgICAgICAgICAgICAgICAgICAgICAgICAgIC GcEGRjPDIfBV6YTOAjGJPhNBXkSGKqXZQiFDFqKPUtDCFuGAEuSEEkDWRnYWKkQYSzISIfBYDdQUAsFW AgICAgICAgICAgICAgICAgICAgICAgICAgICAgICAg LCSkVPYeCFNnFUDlPQJjWRWsRD8MUYOyQERgGRPgDBEdLMSoTBHyMLTeMCTzEEUdQWLtVFIuRUCoJFCz ICAgICAgICAgICAgICAgICAgICAgICAgICAgICAgICAgICAgICAgICAgICAgICAgICAgICAgICAgICAg KM8KLXCiOZIhDCClSLJzXSGmZOCzAADfBXMsDRPpMT AgICAgICAgICAgICAgICAgICAgICAgICAgICAgICAgICAgICAgICAgICAgICAgICAgICAgICAgICAgIC JfGIBnVYSoEEYyNF1KNUIjGFPyJCKkNEMvNTClCIMaQFAbUGQtJTIiNBAzBEDyVHQnMEMgVEScYBUuKS AgICAgICAgICAgICAgICAgICAgICAgICAgICAgICAg UIAmBKUgYHGcNIYwGSFqPJZlIJRkZV9KFCVuHYVnHZFuRVNiQVVrLMEpEOBgNMRnFYAuVXWuFWTlBFLz ICAgICAgICAgICAgICAgICAgICAgICAgICAgICAgICAgICAgICAgICAgICAgICAgICAgICAgICAgICAg ZKDtPM1NOMPyLASnVGZmFSTwCJGkPZZlDAFuYWJrWS AgICAgICAgICAgICAgICAgICAgICAgICAgICAgICAgICAgICAgICAgICAgICAgICAgICAgICAgICAgIC UmTRGhALKySMRlPTMvEA1QTVJfZLJgBRKeMMYvVKNdRMZqMUOoQJNiTNHoLUXdAOYqARBiEPMcOUCqVN AgICAgICAgICAgICAgICAgICAgICAgICAgICAgICAg JWSeYHDaUYPsIGCtKJVpEDVvJBVdDQXjTQ4TGWTiTGPeHYHxKQMoCKMgVXOdTNVpQOGwKAXsKHKnIXKw ICAgICAgICAgICAgICAgICAgICAgICAgICAgICAgICAgICAgICAgICAgICAgICAgICAgICAgICAgICAg NQIcVTXzVW0BASNwZHZwYOSeJRPjIRSvIBAmNOPvRC AgICAgICAgICAgICAgICAgICAgICAgICAgICAgICAgICAgICAgICAgICAgICAgICAgICAgICAgICAgIC YmWCZvLIXaRCKxCALcDKXtJT2RHQ65gUPfg9Z6SRKsLZ9fxww/Ej1FYBezytYuqJAhVM6ARyMrYH6qyq 2APsGcAK4alv0BBAdZCnByF2Z7vFSvUOBqXPXRRfWd E98tCAleGt95WCyaISSnAvEpTBu6Vm9SWdTvT7xqNZNzDnV1WTOrNuZ3SYKuWtT6LLNzZnRfDTujZB9U p2AhkBBkLSl+Ih4ONK1dd7CpQIvtApYuAU8fxu2AFQgZJvXlG3RcglR0QUY5PSGgJb2BHIXpLMFhoISc FXYjWAQNDmNmT3RayL07TCVFRq5+DQplbmRvYmoNCj M0YSZus6AuMWh8RH2KZSWfXHo8jZBjCRROPGC1RC3hB2emAFrwIrUZw0K0CW54OXtqAHGsIJSzEh7tLV 8xKLUtFPYbEjC3WWUNAA6FCEMyKERvaFBrGVAvZTGFJZ0LPNeuFSY0NNTfcfNwqYPoETanQW7DZCHkmr QgMjMgMCBSDQo+Mk7EEI2op3IoPGnqEHIyYV9wto7M EYkENsAmT4Z2eDNaX8E9LVwlWz5IKSDsRSCjNkAmVHWALAvbPM0LBH6trpI9RZ9WvQDbQVKxCJQgbIGj QDu7S65koVRsSYofEO7FJUD+Chintan+Uf3QTANcTNYqKHTeKzWyBNXYWlSfB1VpD5OAg1QlU4LlXQ04tDuf zfVrYIqoSV9PTP3eZBXlJERINU6SfXYdyV3rhdEuIt NwOBJGBcLrI44xgLQmIRUhDUSzZZHsRw8QSSUjG9QwbuXyeMguurXmPNLxJTGJYY4QRIiuasAhhMLxbO heFS91iMswEN8ZKw7XSvTfRI3gsk2WyADeQv1VQGVtKn1MQYTtIUGbAUJvCCU5WUQpGuFtOJswPNYxYS NiHTI9CUKsRYWoPB0QRzYjFUSzOaKnHWtzEQRqHKCu bf2FBPWkOMAkOywnOjTtTMFaLTDyBSinPWLuTKShTLB0KCCqVZMiGD1JJoRfJCLsTOPzLfzzSKAnCDQk fe6FBUVrISRoOtS3JNEoINOrFTDnIImmNLQfDIN1OrI2HIXxXPXyWI2CGaIjPTDnUPK5HdRjTAVkFIDl fk2EDCKeEOJeOjx6MtNnNCClHLCuSTofFLFdXIN6OG rnHFFoJUVrKY7DTxImKNCaNKkkWEOmDPJsVQDchf7JRRWbSQKsQAMtAhXoQBJoOCFsWWcsISDiEWE9EC QiXPTrHWFlSZ1ILfKnEBLnZJn8YehsXHXvQBMnhw6JIXWnLAFjMOE7BVEvSHFqREPcHCezBBNoTHQ1LQ B5BRObBYShZH0ZNpXjEYBhGtVaJOCmOWUjNGNsck4B HNTfBDJqFRX5MwQyJYHyPGEiWHsxVLAyTDSoRsavCGTzIZSxYV5DFqFxOPRzQoNqEdBbBMXqCVZlwk9H QPUxNTKsUrR4PwWeNJWxCUXaKVmvKSMpICJgFJH9ANZgGCJyFK2BUcGfYRXaFvKoWUibWYMtVUVhnf5J PRBzYJYqGAG3SLTvNOMqQQBlYKawVGOsETW3OsHrTU TzWCTvTU7MCaQuBVhbJAHEEaq1FZxyI6m8UYXiSs6FO3Btj2TlEtClOGVGPGdxBN4ghcSnIVNwCu7PI1 xAOdrqA1T4SiB0ZOSwPaJ9JPK8EUifLuFoRYo2BWn1AHS9Nv0qYPZlMcO1ZugqQsB8RfEdYbDeSPJdI9 NiKAJmHsPkMJLkDqYmKE7VVe6GHlS4YLO8mQJsMw5XYaO8CvFWVpGeRH5SDOg= ID Date Data Source [id number] 04/12/2020 10:46:[address] [facility] Name Value Range Interpretation Code Description Data [facility]) Supporting Document(s) Discharge Summary [facility] BKOVPi7nXeNIWcJw72/TQNczSQOwf9DrCNogHOz7HMpiHHTkR3UnURY6kI1qTCG1HGwQIaDqHbTkEeQ9 lbm [file] [facility]+Xa630Qbw+98dv4oa6zZtatWqFOHX/gXdXw/MQNQDEvjZ7pStWorNepWwuldIyCc2ohPeS9 [file] AgICAgICAgICAgICAgICAgICAgICAgICAgICAgICAg ICAgICAgICAgICAgICAgICAgDQogICAgICAgICAgICAgICAgICAgICAgICAgICAgICAgICAgICAgICAg ICAgICAgICAgICAgICAgICAgICAgICAgICAgICAgICAgICAgICAgICAgICAgICAgICAgICAgICAgICAg DQogICAgICAgICAgICAgICAgICAgICAgICAgICAgIC AgICAgICAgICAgICAgICAgICAgICAgICAgICAgICAgICAgICAgICAgICAgICAgICAgICAgICAgICAgIC AgICAgICAgICAgDQogICAgICAgICAgICAgICAgICAgICAgICAgICAgICAgICAgICAgICAgICAgICAgIC AgICAgICAgICAgICAgICAgICAgICAgICAgICAgICAg ICAgICAgICAgICAgICAgICAgICAgDQogICAgICAgICAgICAgICAgICAgICAgICAgICAgICAgICAgICAg ICAgICAgICAgICAgICAgICAgICAgICAgICAgICAgICAgICAgICAgICAgICAgICAgICAgICAgICAgICAg ICAgDQogICAgICAgICAgICAgICAgICAgICAgICAgIC AgICAgICAgICAgICAgICAgICAgICAgICAgICAgICAgICAgICAgICAgICAgICAgICAgICAgICAgICAgIC AgICAgICAgICAgICAgDQogICAgICAgICAgICAgICAgICAgICAgICAgICAgICAgICAgICAgICAgICAgIC AgICAgICAgICAgICAgICAgICAgICAgICAgICAgICAg ICAgICAgICAgICAgICAgICAgICAgICAgDQogICAgICAgICAgICAgICAgICAgICAgICAgICAgICAgICAg ICAgICAgICAgICAgICAgICAgICAgICAgICAgICAgICAgICAgICAgICAgICAgICAgICAgICAgICAgICAg ICAgICAgDQogICAgICAgICAgICAgICAgICAgICAgIC AgICAgICAgICAgICAgICAgICAgICAgICAgICAgICAgICAgICAgICAgICAgICAgICAgICAgICAgICAgIC AgICAgICAgICAgICAgICAgDQogICAgICAgICAgICAgICAgICAgICAgICAgICAgICAgICAgICAgICAgIC AgICAgICAgICAgICAgICAgICAgICAgICAgICAgICAg FOEgUKPbFZFdUVUgOGNrFWHyUCVoFOHkTNJrRGa6F8pgYVNiVIPjSB5eDLj4Rn9+YMlABrScWEE1uxDe fO6QFM2kj8QpVDfyOXKue9XaCKk2WL9HCMHgZSzoGB6ZMSsztd4EWGImICOnbOWDw1dhNuRaPIQ3IAWm FbbsHC9YVMPaZ4nozdQdYNEwPUCPOOtkGITEHXimTE NRJYRdROUtXyUoAdFaZRTwRH3FAADmJ980inNlII8XOc8ZPfWyFW9qlx3EAiFkLILzMsdJNox0RTygGN 7KnMGwiUSsXvSwSPIFYrZkX9yyy1UaKfInCFFYJTkrZA5Ln9QbpGAmFBt+Cz6UGA3jt6ZgXZdrVyVtTH 0jtz0MTIyIIaVrT0FsbPgeWHBpp1UkHHNyZTUDyQ9z DID1VUF4JL1juJRrZZGxCCIDbkY7wSgbFuOtVMEpDn7vYT2dHEZfDVXfLxO4GMUQXB5LRKIcVGRnrEWu TZZlIEYLWT6PAWbeNUF2QEWfxxPxgLEmLNtxNT2KCNYkctVjViTyJCREIWj+Jd8GHA5lj8KgOHwdGWKr VV0yxy5KGWjKBoEqB7D0mFGwQ1L3NTcyMf8MRUWrKS IqGvWlXJRVVNkpZS0UYT3veiL0FN2EwLAaBAAjGTSagGLaIPf3S13qmCTlSCafPR3JSDC+Chintan+Pg0KIC QeKAUpAUBtSyClKGJAOiCgO7NuK4MDh1KzJ4XjUP54cJbxdtPoNJeoIX8PWM1wRQCmBTBFUO4CaUFwjX 8agrHnLxIdLTFOSnQpV39miNYhVSWjROAcPVCgKq8O RNRaH6HrgkKcwJabewUkGMPmKAPREA0EJLtbmxFloIJmyLznGN53mMicNV4OUh2GIrXsFW1kku8MdDXh Wx1AASQmIY0YPYEtSSSlLQOvCBO2ESYoNiAvFEcqBJCmAASiHXV6VKQxMEUySO6GUoFqSSXpFyT1LQlu KKMiFCPddf1PKGZnGLUtVENlReGcXPVzOQGlZVelVN BgKFEzZYM3ESWuGNAgNK5PNnNsMGXmIOU5EXBbDBHnESEqnx4VRBBxJWOrEhP1TfYbCDPyDYPnEQneZL MoPFS4UPz5FSYlQDHrJQ3YAzYcKPJqKMVvLXKxHEQrUUMqgx9EJSDcDWPySCnyHGXmTFMpORAlZVauPC FmZLA5ITX4GOKhAEMkOA9WOmYfKSVwGISqOEBsAZNl XLXidb9VKWOxKVIrMED3MYPnHADoFJCfMMdtQKSyMYZdEHLiXMQnRWPaSM5UOgJaYQXgZTWzKKcrGKHa ZZOyve5GJEBpPUXeIpa3MwMtJAZcQHLfHBlaXDFlRIQ9XXT8NGOsXEGzYF9OMsSpKVXsXSTtGFamUEHi VBXwhl8AQLDoAAXvBUMhDkFqUGQqRDVsJNcrIUYrGS N3QYV9GSFoHZVxHE3WCnSmASHdKPR8OYNkOTJqYIClyn7MAFKnCDEhJxX2XVXiHKNvMERvBLmaXYHlDO G3Rhx8EWKpJQPhDN3BPnEdFVRwQso2RKncHZOxOKUbms2NVNNoWXEnUyq1NdOlWEFlBCKcUBduKAIkGE R7XYflKXPpDTQfQM6GZhUgHWXyOtZ6DKcoLPMiXGTk oi2KNKViRSNgNeT9LnJcXJVlIMZqMVrpGNYbKFPiOln9AIOkJTVlPY9IHrVdCFHoGoJ4TQixHZLaFVHf jr5CWLJpUXVqZld3VKTcYDTqVFUcDIdhGHVvVZW7DLsqAEUtSIBsWJ9IZfYiXZJvHzX0TLJoLEDdBDVr zq5BWAQnGOBvXMndHpNqNQWdCIWlZZczOLKqXWT0CE ekGCAfZPCfMY8WWnHwGVdvCZLYSom2FCsjU4c8LRHgXQ5VB7Xsm0MmNrRlVIHYROmgHK2gznEgKPEdYf 4VG9jUIwvmGWd4EISbClVwJWP0RBEfNvU7XJKqQEhfCchfNotmDt0tBGQ8BmwcE9BpHAVqFMBoMsMcYa jdEkB2YAMlTBVvKMY9YkJxFN6CLt8HViF8WNI3gBFcLa1ZSjBvCNKFVaVxSM3OJGw= ID Date Data Source [id number] 04/12/2020 07:34:21 AM [facility] Name Value Range Interpretation Code Description Data Lisa rce(s) Supporting Document(s) Glucose [Mass/volume] in Capillary blood by Glucometer 219 mg/dL 70- 140 [facility] ID Date Data Source [id number] 04/11/2020 08:46:28 PM [facility] Value Range Interpretation Code Description Data Lisa rce(s) Supporting Document(s) Glucose [Mass/volume] in Capillary blood by Glucometer 226 mg/dL 70- 140 [facility] ID Date Data Source [id number] 04/11/2020 05:32:28 PM [facility] Value Range Interpretation Code Description Data Lisa rce(s) Supporting Document(s) Glucose [Mass/volume] in Capillary blood by Glucometer 190 mg/dL 70- 140 [facility] ID Date Data Source [id number] 04/12/2020 09:02:48 AM [facility] Cmnt XXX-Imp : NoneMicroorganism XXX Cult : 2019 nCoV Real-Time RT-PCR: NOT DETECTEDTest performed using the Rheonix COVID-19 MDx Assay. This test is only for use under the Food and Drug Administration's Emergency Use Authorization.Additional information is available on the following FDA websites for health care providers and patients. https://www.fda.gov/media/771584/download , https://www .fda.gov/media/715824/download Name Value Range Interpretation Code Description Data Lisa rce(s) Supporting Document(s) ID Date Data Source [id number] 04/11/2020 03:00:00 PM [facility] Cmnt XXX-Imp : NoneMicroorganism XXX Cult : 2019 nCoV Real-Time RT-PCR: NOT DETECTEDTest performed using the Rheonix COVID-19 MDx Assay. This test is only for use under the Food and Drug Administration's Emergency Use Authorization.Additional information is available on the following FDA websites for health care providers and patients. https://www.fda.gov/media/427685/download , https://www .fda.gov/media/315206/download Name Value Range Interpretation Code Description Data Lisa rce(s) Supporting Document(s) Microorganism identified in Unspecified specimen by [facility] This lab was ordered by [facility] and reported by [facility]. ID Date Data Source [id number] 04/11/2020 02:57:37 PM [facility] Name Value Range Interpretation Code Description Data Lisa rce(s) Supporting Document(s) [facility] YWBCGs7uZcFVVsEu34/SYVtnKBVag4UrAZcoMAb3FRluTHReE7CvBEG1aT1yJOE5EZxPApWvRuPvSiTl [facility] [file] ICAgICAgICAgICAgICAgICAgICAgICAgICAgICAgIC AgICAgICAgICAgICAgICAgICAgICAgICAgICAgICAgICAgICAgICAgICAgICAgICAgICAgICAgICAgIC ZkMW3MCENdYYNfCOOmLZPiPHCzYZBfJXBaHVOqPZUjJVTnIZPaCSRnYGVqBRNxXYMlRRBuGTWlYTKbAL AgICAgICAgICAgICAgICAgICAgICAgICAgICAgICAg TUToKSYlVDXoFVKbAS0CKALbNTTgQMHdAAKzNIVrWJLlZQHeNRPeUPKxNBRdQHTtMTTcMQJtITTjPRIx BHLaVSXqOVMrHYKxTUJePAAsOFOuHUZzJJOtHOPyYBWcCIUtFEUmCMIuRQRnNQPrHHSiISTcEY0LMBTr ICAgICAgICAgICAgICAgICAgICAgICAgICAgICAgIC AgICAgICAgICAgICAgICAgICAgICAgICAgICAgICAgICAgICAgICAgICAgICAgICAgICAgICAgICAgIC FmXVPzAX4PGYRqLUXlMMKrEEHiIOEyWWPfKVSiOACoWNPgONOwNKHeRSVqHRPsFSPvMZCjKFWcOCTpBP AgICAgICAgICAgICAgICAgICAgICAgICAgICAgICAg XVOgJCAqALOfAZLsRMFnLY0SYIDhWMUdKSBpDWWcUPNwLKMeCXMrRSMxDLBqKWUnAEOvZNOnXMZwCSHp HOYgJKKsQHZsCKPcYTCnDPLyJLCeWUWfPQRzFEWnQEVaPOQbZXBeJAXhGEUrTUXbQPViZHEdHSXdCU2G ICAgICAgICAgICAgICAgICAgICAgICAgICAgICAgIC AgICAgICAgICAgICAgICAgICAgICAgICAgICAgICAgICAgICAgICAgICAgICAgICAgICAgICAgICAgIC EqSZLnLEUlBH2FCTRqYQRsZULiALIjOEQrLRGyDBVqYCVeVVWiSODyTFGjLGChAWBoEEHjZEIpVIXqHX AgICAgICAgICAgICAgICAgICAgICAgICAgICAgICAg DGJvCRLuEUXfITUcDZTiLYLyPE2UCZHsAQQxCEGiOSRzDBBnIBIqQRFuINOyCQShURVcYQUyLICmIJVo ICAgICAgICAgICAgICAgICAgICAgICAgICAgICAgICAgICAgICAgICAgICAgICAgICAgICAgICAgICAg AS1LYAZgGZMwNOSuCRUzUVKdIBSyHTHjVOHgUREcUQ AgICAgICAgICAgICAgICAgICAgICAgICAgICAgICAgICAgICAgICAgICAgICAgICAgICAgICAgICAgIC RkDEAhUMSxFKFqYN5QUR10tBKhe1B9ABUdEY5mybg/Uv9SWWousfRryUCzUT9VBySaGD2ktj8OArMfYR 7yvd5MDIqQRhBgX9A0tVMlPSXvVZZBRtLpG45dZVkv To01YRscOCWtXwJnFWh8Ei7KPbDvA4vtODZfPxR7XJAyTlI0CEYhPmVdOWtqNU2Vu8VbsIVnNXw+Pg0K LK9mf7VaQJvsPnEgWE5vzu8ICZcOXnYmQ5IeuiZ1XIN6MOOjYe2RIZJqOMUxjHSkVoHwMDYNRvHuD1Qm lK27ARORKh0+VYwsgpNmUmqKCuZ5MJPnb1JtYDm4YR 0XVIMxGXk2uJKwO70we7TmvHQhUnxrFCHioSvylfKUTSBdZ6FiabQoRVjKI7uwAXHrEg7jCk5hXLOxPS WwEaV1SSGFXF6AUBUoVGZgnSDhCRQbCVSRFP2IHObpSLH6YWMuxeFqwEThYEvbPM9FEGTnapAfYRBpDK BSDQo+Ci1FOH4lq8HnJIgyJBPzMF3orc5PBXrSWsLz O1I4mHQnA9I1AOulPk9PSRCpLPTnRYNhIVSUMCkxOW6KYM2ivyT4ZO1JsVKkSNRgDPSppHSgOAg5A60t bAWjRXeeYI9ZDOV+Chintan+Yc6VFDZqYAXgLLDlDoBrOJUDUvZiG5MgT4UKk5CpT7EaYN32mSjbnaSyLNcr SW4FUO0cOMKiADGDJZ8LfJVdfK2xolDfYcGwKHBGVm YaL02tdMWyJXYdNSC1RRSoRb1LDJPtF6ZbqjCpnOerfzDzMXCqTESHZX6STZscxtJmzZDfiKzeTA78iJ prYQ7WDr4ITyXbLM1lpi9KyRZeWv9FMHDrZF3WUYNnKSSuVTFrIGZ0CMUpJuPtRVdtOHTpFKKvYBN0UB LcOEFzNR8KDpViKHSgLVg4WjHkKNBuLKLkik2RUXSa FAXeDUC2XbUtWHQrZDViTJesUUFkIGHkMML5RDHlYQScVO8OHbDiELOuSJI3YZZyGYTpFVOdnv2WSAZh HGDtQxbwUACpSQJpPDPuSXixOUVpPTC1RvBvHVHwULPlMO6GAlLtVTGmIJW0CkyrILCaNVBbgu6ABAHr QBXgRKp1CxJsQUBjRGXtDVigQZHxOTD4RTvvYSRvTF AcMO0OOcVpENYeOGXvBmDmBYRmAWAhcq3KRSErYPMaTaItCpZnNXHqRGHkWTwyYROeEKR4RQR6DYSxFD EyPP2PUeSjUIWrUWa1QRFaVQOrEQKzfs6BNLGbMYXiWSEqQmUsEAPrKUUsLRurSBAvLZR8RRYpIEOoXI DsPU4DMmWkFZFgKMw0TrIvCVRdOFBtko1GEKXjUXSb NSJ4KDJfDDJlDGPdILp4ozDotBKoFBm5DN6LV0EuxfOsHBuIOx3Sf998PSQ5IURtPp1XA1lsOl8jRDDh HWGZQp0WJWv3OIQ4FdYwIkAgIkCvJXToIaRdSeY8REHmNASxWJV8HmT+MMf6JSO4Y8ApP4OmIPRaQBGj LWVkAZN4QGH6MYU8ORE2YI6mGEUSIz6+JSsanYKbpYkpHRCIKrt9WxYANyQlCF0GGDh= ID Date Data Source [id number] 04/11/2020 11:56:47 AM [facility] Value Range Interpretation Code Description Data Lisa rce(s) Supporting Document(s) Glucose [Mass/volume] in Capillary blood by Glucometer 210 mg/dL 70- 140 [facility] ID Date Data Source [id number] 04/11/2020 07:52:35 AM [facility] Value Range Interpretation Code Description Data Lisa rce(s) Supporting Document(s) Glucose [Mass/volume] in Capillary blood by Glucometer 193 mg/dL 70- 140 [facility] ID Date Data Source [id number] 04/10/2020 09:16:53 PM [facility] Value Range Interpretation Code Description Data Lisa rce(s) Supporting Document(s) Glucose [Mass/volume] in Capillary blood by Glucometer 240 mg/dL 70- 140 [facility] ID Date Data Source [id number] 04/10/2020 05:23:08 PM [facility] Value Range Interpretation Code Description Data Lisa rce(s) Supporting Document(s) Glucose [Mass/volume] in Capillary blood by Glucometer 150 mg/dL 70- 140 [facility] ID Date Data Source [id number] 04/10/2020 12:19:[address] [facility] Name Value Range Interpretation Code Description Data Lisa rce(s) Supporting Document(s) Glucose [Mass/volume] in Capillary blood by Glucometer 183 mg/dL 70- 140 [facility] ID Date Data Source [id number] 04/10/2020 10:48:[address] [facility] Name Value Range Interpretation Code Description Data Lisa rce(s) Supporting Document(s) Consultation [facility] GOVHFt0eIgINSaDa48/WAMghTKZmj3FvTPtuTKc9WSjlEDJeO7IiDAB5zJ1hDZW6HWoCWrHbVcTaViWh m [file] BiIbB1HDe+VQ4tJBt+Bg7Lk3PojuY6ylLhMOu7PxqcXEdqBVZNNn9R ID Date Data Source [id number] 04/10/2020 08:29:04 AM EDT [facility] Name Value Range Interpretation Code Description Data Lisa rce(s) Supporting Document(s) Glucose [Mass/volume] in Capillary blood by Glucometer 323 mg/dL 70- 140 [facility] ID Date Data Source [id number] 04/09/2020 09:38:18 PM [facility] Value Range Interpretation Code Description Data Lisa rce(s) Supporting Document(s) Glucose [Mass/volume] in Capillary blood by Glucometer 210 mg/dL 70- 140 [facility] ID Date Data Source [id number] 04/09/2020 05:13:28 PM [facility] Value Range Interpretation Code Description Data Lisa rce(s) Supporting Document(s) Glucose [Mass/volume] in Capillary blood by Glucometer 151 mg/dL 70- 140 [facility] ID Date Data Source [id number] 04/09/2020 12:15:08 PM [facility] Value Range Interpretation Code Description Data Lisa rce(s) Supporting Document(s) Glucose [Mass/volume] in Capillary blood by Glucometer 240 mg/dL 70- 140 [facility] ID Date Data Source [id number] 04/09/2020 08:14:54 AM [facility] Value Range Interpretation Code Description Data Lisa rce(s) Supporting Document(s) Glucose [Mass/volume] in Capillary blood by Glucometer 204 mg/dL 70- 140 [facility] ID Date Data Source [id number] 04/08/2020 09:14:07 PM [facility] Value Range Interpretation Code Description Data Lisa rce(s) Supporting Document(s) Glucose [Mass/volume] in Capillary blood by Glucometer 216 mg/dL 70- 140 [facility] ID Date Data Source [id number] 04/08/2020 05:04:29 PM [facility] Value Range Interpretation Code Description Data Lisa rce(s) Supporting Document(s) Glucose [Mass/volume] in Capillary blood by Glucometer 158 mg/dL 70- 140 [facility] ID Date Data Source [id number] 04/08/2020 11:59:10 AM [facility] Value Range Interpretation Code Description Data Lisa rce(s) Supporting Document(s) Glucose [Mass/volume] in Capillary blood by Glucometer 184 mg/dL 70- 140 [facility] ID Date Data Source [id number] 04/08/2020 08:43:[address] [facility] Name Value Range Interpretation Code Description Data Lisa rce(s) Supporting Document(s) Consultation [facility] YHXSFy1cThKYFpJr02/ZNAlqJFKuw9RxLCumNBn1NWbySSHzL7HySXC2jK8uNBA4MCoZHeMzRaPzGhNy lbm [file] carton stenciler/UGQUJQFpt6DMtB2BXpUgbd/9HW49YbmbvOOGNQXRXmNs1n/T9V3WM5s1gYBzfhh7sOXG3wDDgeSY [file] [id number] ID Date Data Source [id number] 04/08/2020 07:56:56 AM [facility] Name Value Range Interpretation Code Description Data Lisa rce(s) Supporting Document(s) Glucose [Mass/volume] in Capillary blood by Glucometer 256 mg/dL 70- 140 [facility] ID Date Data Source [id number] 04/07/2020 09:54:04 PM [facility] Name Value Range Interpretation Code Description Data Lisa rce(s) Supporting Document(s) Glucose [Mass/volume] in Capillary blood by Glucometer 208 mg/dL 70- 140 [facility] ID Date Data Source [id number] 04/07/2020 07:56:07 PM [facility] FLUORO ART LOWER EXTREMITY-OR [id number] RESULTInterpreted by:Yoli Mcgowan, MDDate of surgery: 04/05/2020 1. Right femoral to anterior tibial artery bypass with non-reversed tunneled left great saphenous vein2. [place] of left great saphenous vein3. 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 HELPER: Michelle Petersen MD, Yonis Jean MD ANESTHESIA: [...] rce(s) Supporting Document(s) ID Date Data Source [id number] 04/08/2020 12:19:55 AM [facility] Value Range Interpretation Code Description Data Lisa rce(s) Supporting Document(s) Glucose [Mass/volume] in Capillary blood by Glucometer 165 mg/dL 70- 140 [facility] ID Date Data Source [id number] 04/07/2020 12:07:46 PM [facility] Value Range Interpretation Code Description Data Lisa rce(s) Supporting Document(s) Glucose [Mass/volume] in Capillary blood by Glucometer 198 mg/dL 70- 140 [facility] ID Date Data Source [id number] 04/07/2020 08:19:21 AM [facility] Value Range Interpretation Code Description Data Lisa rce(s) Supporting Document(s) Glucose [Mass/volume] in Capillary blood by Glucometer 192 mg/dL 70- 140 [facility] ID Date Data Source [id number] 04/07/2020 06:25:11 AM [facility] Value Range Interpretation Code Description Data Lisa rce(s) Supporting Document(s) Leukocytes [#/volume] in Blood by Automated count 5.4 10*3/uL 4-10 [facility] Erythrocytes [#/volume] in Blood by Automated count 2.62 10*6/uL 4.6- 6.1 [facility] Hemoglobin [Mass/volume] in Blood 8.0 g/dL 13.5-18 [facility] Hematocrit [Volume Fraction] of Blood by Automated count 25.1 % 4 1-53 [facility] Erythrocyte mean corpuscular volume [Entitic volume] by Auto mated count 95.6 fL 80-96 [facility] Erythrocyte mean corpuscular hemoglobin [Entitic mass] by Automated count 30.6 pg 27-33 [facility] Erythrocyte mean corpuscular hemoglobin concentration [Mass/volume] by Automated count 32.0 g/dL 32.0-[facility].0 [facility] width [Ratio] by Automated count 16.1 % 11.5-14.5 [facility] Platelets [#/volume] in Blood by Automated count 183 10*3/uL 150-400 [facility] ID Date Data Source [id number] 04/07/2020 06:38:24 AM [facility] Value Range Interpretation Code Description Data Lisa rce(s) Supporting Document(s) Magnesium [Mass/volume] in Serum or Plasma 1.7 mg/dL 1.6-2.4 [facility] ID Date Data Source [id number] 04/07/2020 06:38:24 AM [facility] Value Range Interpretation Code Description Data Lisa rce(s) Supporting Document(s) Bicarbonate [Moles/volume] in Serum 23 mmol/L 22-29 [facility] Chloride [Moles/volume] in Serum or Plasma 101 mmol/L 98-107 [facility] Creatinine [Mass/volume] in Serum or Plasma 1.16 mg/dL 0.70-1.20 [facility] Glucose [Mass/volume] in Serum or Plasma 189 mg/dL 70-140 [facility] Potassium [Moles/volume] in Serum or Plasma 4.4 mmol/L 3.4-5.1 [facility] Sodium [Moles/volume] in Serum or Plasma 134 mmol/L 136-145 [facility] Urea nitrogen [Mass/volume] in Serum or Plasma 20 mg/dL 8-23 [facility] Anion gap 3 in Serum or Plasma 10 mmol/L 8-15 [facility] Osmolality of Serum or Plasma by calculation 286 mosm/kg 275-300 [facility] Creatinine/Urea nitrogen [Mass Ratio] in Serum or Plasma 17 [facility] Calcium [Mass/volume] in Serum or Plasma 7.7 mg/dL 8.8-10.2 [facility] Glomerular filtration rate/1.73 sq M pre dicted among non-blacks [Volume Rate/Area] in Serum or Plasma by Creatinine-based formula (MDRD) >6 0 [facility] Glomerular filtration rate/1.73 sq M pre dicted among blacks [Volume Rate/Area] in Serum or Plasma by Creatinine-based formula (MDRD) >60 [facility] ID Date Data Source [id number] 04/07/2020 06:38:24 AM [facility] Value Range Interpretation Code Description Data Lisa rce(s) Supporting Document(s) Phosphate [Mass/volume] in Serum or Plasma 2.3 mg/dL 2.5-4.5 [facility] ID Date Data Source [id number] 04/06/2020 10:43:41 PM [facility] Name Value Range Interpretation Code Description Data Lisa rce(s) Supporting Document(s) Glucose [Mass/volume] in Capillary blood by Glucometer 186 mg/dL 70- 140 [facility] ID Date Data Source [id number] [facility]52[facility] Value [facility] Interpretation Code Description Data Lisa rce(s) Supporting Document(s) [facility] GQLWQo5nCnYIWaOaq1EzRqQpWWVcNO1airr9O9Q8tMMbY5UjkMVbn2rdR0ZkF3TkAWZfVXIIAZ2NnDHs jb2 [file] PlGJ8X3eTm6+1449Ox/vp purchasing+CL2rHK4bJNpzxGBSkwcP0/nv/60TX8n//qXXj+CdG/f//3//TPv8T/+X// 9Qf8/ffPf/8u/F//+m//41//zX/8T/6Mkt53b//zX//df/xL/n4miT7/1Xx658/tuv/5n//7f7k//0j8 /fOf/jmLPv/+/fc//8u/1kZDzToQ3AC3jbXAfB8Idp oALSUwGqXcYgCDk6RS2KgUVQjTQXQH5OrGpUqVR3KB1kgQvAyTL8RG9wjVfXvTM6ZX4ijDjBbTA3OI8s wTgMxZgkZe7bKrdPu9nPleRg1wzpoNd9oyl7HsSjvf7YzB5xp4x5D2Kz/SyOu8dIb2Ow/FmMw7hAh5Sr /QrMz9gBp4Vd/PkUq1yTq3Cf/QgDp1lQs4jc/LkZf3 vBx5ec/LD5qZLsUfJK6YPc9kzbDbBt7JMbYfXqXGRk0SViMtLoOBUe4RYhIEH0Ea7ImU9qnxQsJt8DcA 8FB7NrM5cV2KKL2b7dTO4+x8HhV1m41Vfw9zCr2azU3bWr/Z81rIa/P6YtNaLw+UsQuHimAm4qThrDk5 gPycCh9umetLa16Ws2+e10Zeu+x5hojceR0glZlgE8 kcyrqJXabmcXVF9swm6RZ1Xlb45m/7crsx/3cUE64xg84541Eq1/Bae266i09+0x0Dr6DRsk303H22+b zFR2qJZc949Qb13fkigsYX/lKE0qXVD96TqPjevLEUdaYKFgG/FeIZyI3n9yGHbbxljbQIfzyHyrgvFa WnYk3XSh6i/eRJWSI/dcNvJHRSxNmkidgbI1F4vS72 VsSv4mKWcKSAzdPFNIJOr4TByvGUs3sknpjhXIvK2BsfKPHJ/YfAnDyZF1SxzSwcm4sAsfK+FItQssiP ZhGKFvlRLULZIj+7FSkv4Ub1DCUE/GgXoXiRH/UilC/yo1+EAkZ+FIxQwsiPhhGKGPlRMUIZI/6fPScQ /MmTUkZ+zOfFzBnFcbCPApjUM7MMEq+KUevp7TvYZK WN/VgjmerPW41bUHGKb72IaQXH0klDxapzN6U7lS14DeT09fJitZDXqwOJILUTg4oVljy44ShRwDF/Sk nhlkAL2ztDxmgwCxRmtL+1CoU15nG2hBOZerNUMRYDm+aCjb749W0W8NB/ykcofeRH+wjFj/ndX7Q0eJ /8JhNS2eYSwPEEfvNYFZUAnuaOsoZ96CMLPRD/Skgo ktVVYzdDuXxfNuKxur55gVNZ+qOHlHpIf/SQUg/nto4J4oX72YTKVdN/ekiph/IVPlf9fX3yWlOy2b25 pNRD+qOHlHpIf/SQUg/ihq9R4gE48DIUEuQ/ekiph/VKMoo5qK4dGbMp2a9/uvq0nn7Hk7d+M4+mmTQ/ iUsd1xrguUaNn5CHtHrqz6vJTi2iTkXfpdPLPo/pjx 3L0xC41EKGEsX/ekiph/GFMvu6pN2dZwVi5r36vFZS+qOHlHpIf/SQUg/fub4P8hO21VXMOpE/ekiph/ WHJbj1wD7aRoVw9f15xCUH+qOHlHpIf/SQUg/gho1K2gN78DJZBwV/ekiph/NWQtp6uY8fKoPj5p53zR RD+qOHlHpIf/SQUg/kqa1Y3fW10LBSNxO/ekiph/RH Vrk6pI2aTsPo0n67yFMW+qOHlHpIf/SQUg/onh4H2uW02JI8qDRM+vTzQZWTABkOEyN8bj1hmq+iRJTI NNFDCMMn6gXiPVXB0wUHC7dBUk5mEaI1IJBobB6wXqT9RKWyqR3fAsF3TTKmgP7qCgY8NDVivR1xAuB9 vBpN0vOtI1nNlO6oW3T+xnyM+RjzMeZjzMeYjzEfYz 0CnPx6TBSc9zLMa1jUKn8fWy53fQc056eFkmSeWq3NpTu4ETHY7yLPW1lHAJ9wFjP8vppW7gedR3ecvM 8wn2A+wXyC+IceN8vOLZ8P+AhgR6kFAH7O+BzoL0zWQZ2G+PaqG9cNZA7M+Bjod8iPZx6U+Mcbe2eBRz 6L+Qork1bYCn9V+Qkkw3pHMp9C+Zuvp1dFRr7f+Wzm z6xNHq2q+Elmq2nBZm1x+Wxul0kSLc5q+aTN/L01PU/BzGWhvWFm4SOdwSABD+BHq5fYe15ym3Xifapn 8Tq468mcIf8/bsbAh07tkxIlc0hwrQji6GwuC1p2wjvPvAYHD805mUvE7IV4DYMGZLbEKYU6iHDEDV0E LTKN0hXXAGZnMPdPvdLOtKL6VCAKNSrBM5V6oWWFBR 7IVVPZ1zSLHMZuXICMkaLPjUY8BLCQNStWLoW0yWQmXJ1qCEQM5zWVLMUcAHAYeumQCHI8iDZLECcBJg [file] d6BKXUcWu6h3rK3og1r96sp4v4hkWixy88s/a51f69 +A85vr/G8MRj9ibi7ojsNpSuo92siqn3tuQKNj036f5uU5Sn09dK/mK9obI8u+2Eenqt79Rcd27ks+tg geHr98muvi4Te/t4Ej3z1ugoD5umoHfja/ooagxtQjn95F0VIcaxbfKnMoo8/6F1mdx6ky5+5/jPd+72 S90pqgQ474pQ15cf47mn969xziy/C9wmdVf/m5Ngjt PQt3VsfrfY0Om98u1NU7oKptk/7j8kcl2WKD+zier2l+dR+wI5Om92TZrgK1XjTdNWaWyn4E/ErBrxT8 ErYrEHgJsr6A/MnHgjW0JyUgOTfUpy7G/PzWioZ1OhKjSLsWgx1R/WuVvpW8CgOqBOuRjj0U/ErBrxT8 LcN6p9BD50z36E/1tspkJ3wO+vK2fj1Cc9Pc6J/od/ Q7+wA6ps5D/oH+iL7S64I+KevMqH1K87kjix0t47X+OpiQlS9f78dyhk8o77I+YfgUpY7y5sq/wNVxfv ZfYM6eeX2oiBrL/WySulJ9ScNoVRzThd1K/ZbDhcC9LbBsSIzUzc3J/WzQeiN8VsQfZ0V+T3Tq5kdss2 cr7GH67iIi4sjoXpp/oF/Qr+vM3Wk23qrc6SKEivN3 f3hVux9Nq/Pnfu/A50z0T/Qn+vV1jE9Pt/cWz8D48Y3E8Bc7Sp4QzgQ/od/Rj+l57ktkyR8zyg+J8ztx hoyU67R7nRp/E/yifcaO8h6GjN4s6jfA+9LezkS3LrNwX9y8HbS+lZjPifmcmM+J+Lj0qoMKe+L6TVy/ iesX/EoT12/h+n5ev4Qjx8B4Jv0torWbaT8S07/h+i 6VihDncqhV5x0UboFnccjY2r7QvvOtJwV8fIuat17zYUVi8Et4I/oN/YZ+R7+gI6Vw0M/oH+if6J/oT/ Qn+gv9GC/0K4N+SpZmJIaNiK2V+JWOXsa6uVLaFnnHaG4G+ITGDqz0bOIxQcuDdI9H+MAAOay4yEUtUh iVgV8Z+LNBJzb8dQRzImxMzD2D+FYGTbc4uQNoOgrE gV8Z+EQOlzBzFeh8tnNtOvMdj38a6Z/WLpnnMcYL/lkcAlu5H8W+FuNqTDlGTe0z8ZtpUO8bhTIIFv1j 4FcGfmXgVwZ+OiEHIy7s9DaTxkRqBpY+TcDJXg4t8TkRkzEpSmQ+QhMTYu2i4YvIlrCvYuR+RzXYFp6s bZ8IOqy3XXKuJ/Qr+w18qk7Wy5P/0B/oH+gf6J/on8 /nu21+tY/RX+ix9o2F46JazL/Qj/LZnoFzGif5fdTvOlNqp02y0Q4L+xUIytMmJvq3usHtCwNrq73h8F 8M+dNPzsOoVuk3jeNgOlFqt14q8N9T+gWHozDwWev4ieyVUcUuljCOgLmmhVXbyAcslLqzhwmMc9M9gk EmmunZt3T91E0sSu4ZaBSzRNqNcX1G/MqPwgt5oyMb KZrWlR6G/Kr2k0zvr08+Fj0fOclg7H46uIfeVV+7Pjs5QMy+W45zlL8lc+65Pkot41l4I9y2gw6+6TnR h6k9zyNpX1mmcC9s409ko7mFxmdl0kk+ztveL7z3qev27e7Wwfm9eSfFy5re2wgz+ppax4/vCbtkn5aF 2hiYxmRXVzJX6/fKOj7/m2uqrx9k71f7dzl/yv78dX 8nV5pa8/nWr/Hp9KiLLvEbC+Ot7l/he78b6wYT+o6jkrS7y5+4Ifk6xVk8oC0F3DIam5J2Dte4aJs1sV 8F0Zol4pGo8mP8W8Xu4rwrTIb21sa/snW/vJgqmy17js+sB+zj+NTb9jNe/bnjm5Kh48uuarD/Z+nPa8 3tmVx90j9kN/h5UCFJj0u650wApdfLy/ocNb/q39n8 mz6Q96h8TZ2Ulih/X7/7Bum7mfElG33a6UrOp3YfAjd/gxWcT78q1NlMg6AqLeh/kdZbO24y6CqAi7Um Kwe/ysRmC68g5YrHv0JuLys/jnPtO59v0BeHo9XiAax/xkNvO51u4TsEs6FhFow/zsUaN23x2MdSf7Nf kIBfObNJwK+cqSXgVw5+8bAPFa0v2E3v+lBCv1ToUe 20xiEdDcTjq83m8F1q+yOPj5KwF567Edp4kCT15BR+6FgfdKwPOtYHHeuDjvVBx/evC56Nqe8n/MrBrx a6inFzRVpXze6u/SdPgrg5roDeCUcNav1e/EpLaam4zgNlkI0+7PDjX9s+7sCiiN7GIjjGc8azs4gn70 809Cpfim0Eo9N/oH+Nd+WdesPi3r2s/PXmV/cx+gv9 dfqbX/VnNr/ax4J+Qb+jX2Nk0Wr6B/od/YF+iKzJDqt33TlPrw5F/kR/axo4c6uJI61qXwjsDx+gX9CP 89b5jkZ+4szESsh2P/oD/YH+gf6B/on+if5E//l/5HX+H3md/2xcnd6MnF0tQ/Sf/0cB/BclPkR3g7N+ EtQsDnfOUE3K3CxL/ZbqAvB6t7ehoo/RY+OP5Tk6al 6fqxGVxKt6tz2BMuZ5mk9Eo3Si6j/oD/QH+mo3E31NePeQNEzpV/Qn+gv9OL+C5QsEraxwYkfP5QaTum opWhbI0FgBfllfQynD5gwX/0Q/zi/PKpJjv4N0imA0STB3UCF+HEcxOKM7xG4BOJ8UdX6R7bbN10JO5v RILEY+bPpvZVsJfmXCjbuMvnnhlB7I8J6v9N+VSD/KpB/ Senior Care/JuYfFmEaZhmShpvuDM8SJJcuDZ8ycJ8pWimqLM7lnH4oHq5znO1AxP2Jq6dx5t5OP/hDSB6A8NuV fhXgVwF+KvUJSV4K8JsOnvZkDuY+XsGfDhY9mnk/G9h0p4Jfv7P/hekP2oBU+mBgfTCwPhhYHwysDwbW B2MY+h39/nxuRvOr+xj9A/0D/RP9E/3Okmm76E98oN 7JhoH9WTI/PsmCAd8pwZ4V0FzWrwCFcfV1OQS/WxaBHr8tyO6G8HgIrySRzsX3WAC/XekYRo5amQ6X4O oSieIVtqX0XWD/TajGXy1wmG7V8VuEsrULetG4XXF/DzaEMn3bvQ3J0HcW+mBgfTCwPhhYHwysDwbWBw Wdz9U5NvYoL0U8RwB+mmQXfScfLD4d8pmcc218t975 6F+6UzS/uv0bv7uqioRtLLDvlzfehtyJrATDsBgj63cjR8J7kttTVEna6ac+pdetzxzXyTcbza/WbxvX +b8wFr+37oz8fepiy6xe90A/jpj4nJLrF1lW6GE0Mq1yPt68djDLzl+upe+Adw2ccjaTT87O50tA8v5p PjiaX80+IdyAcW19yCDD/Mp6f82hlVvpO/Q7+h2fs8 7vfYz+miaktT1garLnhyr+9QzqoM4k1HVG+tVo/nz6fRpz63tYG7+aFhayO10dQA41bML6d76YQ26kf9 Nue0d9Jxrv6EyyJ/Gru3/ygH0zDx+6P/3z3jwAPsrw2c+2+IHiqA3HhdfYyBb+3YpiUZtej7NHXsdzN+ 3fsK7f/RtO/kWepxFta6rzA56j2IdzM3j/2sfoP/er Tk4zPT1l7D8E4BuT/IzIoikFdty8kfD7ekJ/GwMhXtLiQh8iKV7b2N4S9CbC/LsJjgvXbaz5pyJ2rqR/ XjKlIlUpKh7bOE5c3C8K1OuF/CgTgjpOrfb3vsE4vtK/ShBcNuRvAe3gaL1UwE5UhZ3MsB5JoE9JtT8D wO5LrH9KbR3N1IhO8qYP/KuB/KuB/GuXcl4SX1P0kV KMC/2CfkG/oh/tSHejxHoAbmvr1kHcXju8RQbW2o7Y98E8M5V8bf/HXI5tDYq/TxJccBTz5Af9Nc0Yof W/od/Q7+d26Ht0N75p1/BRJYm0D/rXePsZ1/zqPkZ/ob9OP/QbMb0gLL4l3S6O6DgX/DbAqrzCe3lav1 4PN7/ax4H+QP9A/0D/QD6Wa4O/0V/sD0bkkC49G6Dz 8t0UsdYfkfwH8f8Xsfr1xm3N/0VxVf46laU/2scT/Ti/hfNbOL+F81vn/M7Wr+6z2Yj2Ka5WkmM/od/Q 7+f34Cw1t7jb69rJ8gefz+if6E/0J/oL/XX6m1/dx+aN6Ne6Rc2u+t4z6nkuyCyBZW6+R3+gP9A/0D/Q P9E/0Z/oT/Sf+/OUc3+r1G8k9UjD/AlJw5pTwhy9ki a4idzJcqupDmnA8TwXxgzdWwtT3LxYupgbEotr7Y941nHic8979E/oF/Qr+hX9OL+B7ZaMamgxGboN2G wZxsvvPthE9MhFd+f//pSpELt6ubnFo/No+oV+Qb+gX9GP+ewYL/EAUhl7AoY6iTtxJjv6qN3dCg/gdI zXMV7H+GDhJ4w4NNiazKbDsB/A+M4a93A6VDh5QQ4B hOOcWGg3SX4OaAPnkU90lD05yF97aZ62dF27dC78oX02pL22mv8h+DCBj0ocLgN1yeKyZgLmVS12am6p +DLVh6qE0c5D06A1C8ZSyhFkM45O7CB/fSK/fSK/fAQhyOc975MbeHN2uFSGdyOPwbGJoyWXFP19rt4p +RBWd7xWm3JS4rV16un1Bgs1+jsi0DjS/LuFN21ghq l+WkJvGqM6jeZasCb8tnsjm+L8Qr+l2J4v0RlY/YeAt9sHa2vp/xtq9QbDSY2Pg5HW79ghyeuwsFWbU/ MZ+fPEykMuP74gV0Pp5vN7PkebPxxx9G/oT/EoaWSw7ifrQuf8hI4rD/QL+uD0ol4Nm0Mm4z/oD/QH+g f6B/on+if6E/2J/kI/fku4zmD4NBS/PbF/SXHhX2Js g5Bh1Glg7uCe3pkaboXyNW7+3ZzkUw5Tjh6hpbSmKjwYf9D0w/36ic/p/i52cFm1k6M3R0IgmH4Tq+q9 tKkrv65/d085fjWp7PNuwW1tZ/xq5+Plg1/tPL1c/Kr35+biV1f/asOostVd8iKM+6r78R4N+e3Z/Gr2 8Tq/2Z9/6ilv68i5JO9Z2a/9Krd+tY9P/7ry0sU287 a6vaKv7Ti+aWe/cy5+pR23xa/8skBFZ6hAD/Pm5Me3lxN4LHepkoSt/Bon3RZcq42Ow0gmcs5E8jk3+z dUbz7ezN3h5ZFA23oKb+7fU+q4Xl33t//pS5xnrl9bX6/4rLE3v+q6ZA1bxO2q9XbKudVHyqF8EYS/Ann bXSi7guY6V4HaOygCdJzy+iF70HBwxwdnE+cL5mh5I v6Lf0G/od/Q7+sI2dr7M/oH+if6J/kR/or/Qj/YhqKHwIhoNv08s+GQORT/uz+BDGL4R4VyWivIcYcf+ wkCWPb7bmJ6d9DsFivTT9+eB+eWDY7Tk/oz8q0T+KG77vujwHvMhsFukpFopijd0b0v6p9m4p8y1w6t2 g0v8y2g5t3t3t9c9i3y9r1x4g5w6f8p3x8m6m9r6u7 r7l5d0e1d8q2i4n5v4d5jJF/iRXvqwXF0xbYxhMgeaRH/0XEUxKzgPbq3g+NVHFnP3MAGrSsoLsa1p+F TET3EqVmbTv7n5/HesZfI5k9V+bhNppkuX0skQ/n0L20Nxcy2bF1gX1+q60C/oF/Qr+eT7sz6Kd6Zf7H /ojycPr+MF7vL7A/on+xQ7rt9D//m/GGM1obWg36QA +hL4xn8Be2Xb3C/od/T3+b36+EwnQUh988SW/on+kf1Zy7Z/0H/uz6Xn/lx6oV/QL+zU8Dz8Oy0j/35B invfFoX2ppRsPlWova5W3H9R+wMDjmcbEeQ6xpXhDfBuos3J5S5Z+rRTusfiJnF2drS/Vci/KuRfFfKv WnaMlsfuFu9IIe+tyS9TfI9b6E4B8x8R+VeF/KtC/l Uh/9bWg1PMocydSlIfkbk9H8E1o4S+VSH/qpB/Vci/KuRfFfhVIf+odS7WvL4j1Y7N9c9G+VeF/KtC/l Uh/5uls1WgSbmONrrtFrrfmlj3M4F1m0K+VSH/usRjAigrS4qHWwCKZ+nDxhMTVv30Mq+8dG5kzQ9j7P cX8tsL+e2F/KWEbgezp62H832Mqw/qhshi6pn09ZS6 9kJ+eyG/vZDfXshvL+S3F/PyNlaDyghlMf9BSk+slP2ZnH5k5J3T5f3A+VeF/KtC/Minh/2uQl2ISlhdr EtBmdrg4U4X2r3B+VSH/qpB/Vci/KuRfFfKvCvlXhfyrAr+qxP05z/+MnsP1ScW9XdoHUt+zlIOk1UoG PI+T130Uba/wmlfn8dr39OE42thlbsJ07Bac+e19bO z40Ey1Ml09/iK/vQrPI+hXhfoMhfoMhfoMhfoMhfoMhfoMj+lpBdwKURkRAVjeInw9tLz750QXMHFFxW cIzOGyvZijv7jcbdWCbkDLxZTHZA7QaFDt4hSHUAkf7w15QZy4GxAVl7GQW6TKoOVSanGGW5JxtGwK9J WV6bjzTE/NOA6MzYWrSzOBYTqn0hO6ORq9JoHHa1GS X3OvgCdW2EG37pvuUV/OF315QOiMvZepZ4Tm6PYnPq948S1mI+Zdze3OI38qFqA5fEY+eTfiWQfuWsTs TUUblazmorI1yFmHwalh/Tbvxlk+fjTiWV/cQwHy0xL234RkbpA+jz1TBh+VY9FvxaJ1dJM40Pr5q+9r 4xGDK/ORR84vmAId1TsXUiu1tInG1B2m3hgsJFD+Gv Uaahm0MSyKkKYqX9oN22B6PhG3EO2HYo6RuBUEJhjxFydq220z6luyxH0Vs6dI/C7H2g8Vxdhzonq4Zp AS4lPaYinM32zHeiLoETuH7lVTCT631z9ncFz5k30qeaHWQsrJWWS7c3otruvP8JPp8B4JdIQvIk2nvt 6zNmmsu6AcmRtVgPNt1dgF+sB3dh4ZJrtPdeZ5C2OJ Ir3l4DN84XeiIvzpdgR+NtoHNJVj41vELZ+WNr1Y2/ButwOA9E9ubtf6QT/9XcSJcrWGX2R1dKcg9AAC 04tVTi+WOb1Y5/PyiuOChX9njbn0CDs3XqSQj6EIP5H3eBpf9QXI68cFVp+WPL1Y8/Gy5jJXIL7vxa49 JmMwGYPJGEzGYDIGkzGYjMFkDCZjkIxBMgbJGCRjkI bOFfRqh6vxH3MEIASWpTpfC9DZWVWOfEmjS2PNVUHREKz1IKTDrEJhDbJXBPHRbUDwVwMYZODWuJDbHa UYFGNQjEExBsUYFGNQjEExBsUYkCe+YRXu2YyazyEQknRiXyDFhcatFPkHI2E3/YVoTTnValXLQ4MGxL TEGp5wCr7ECJhbvcuXFOHTKgzDglfID+K6PfwfCuPx OUSOxJXnZ6EGUzBQHpHxapae3s8VqDFwDMnQCpUhgsMYTUDC44KVAZPtpLMfwOyFIlbyyySkOk4DpMZW AXTJKDRbiRYxOpgGJWJmpKKdYwCGRGErlMCeNmM6CEg6U+kswhqg5bwJcYmFVCPSVcXKXUFJOONIArgt [file] [id number] ID Date Data Source [id number] 04/06/2020 05:37:[address] [facility] Name Value Range Interpretation Code Description Data Lisa rce(s) Supporting Document(s) Glucose [Mass/volume] in Capillary blood by Glucometer 193 mg/dL 70- 140 H [facility] ID Date Data Source [id number] [facility] Interpretation Code Description Data Lisa rce(s) Supporting Document(s) Glucose [Mass/volume] in Capillary blood by Glucometer 185 mg/dL 70- 140 [facility] ID Date Data Source [id number] 04/06/2020 12:29:31 PM [facility] Name Value Range Interpretation Code Description Data Lisa rce(s) Supporting Document(s) Troponin T.cardiac [Mass/volume] in Serum or Plasma 0.06 ng/mL <0.01 [facility] ID Date Data Source [id number] 04/06/2020 08:14:33 AM [facility] Value Range Interpretation Code Description Data Lisa rce(s) Supporting Document(s) Glucose [Mass/volume] in Capillary blood by Glucometer 145 mg/dL 70- 140 [facility] ID Date Data Source [id number] 04/06/2020 06:44:32 AM [facility] Value Range Interpretation Code Description Data Lisa rce(s) Supporting Document(s) Leukocytes [#/volume] in Blood by Automated count 5.2 10*3/uL 4-10 [facility] Erythrocytes [#/volume] in Blood by Automated count 2.70 10*6/uL 4.6- 6.1 L [facility] Hemoglobin [Mass/volume] in Blood 8.5 g/dL 13.5-18 L [facility] Hematocrit [Volume Fraction] of Blood by Automated count 25.7 % 4 1-53 [facility] Erythrocyte mean corpuscular volume [Entitic volume] by Auto mated count 95.4 fL 80-96 [facility] Erythrocyte mean corpuscular hemoglobin [Entitic mass] by Automated count 31.3 pg 27-33 [facility] Erythrocyte mean corpuscular hemoglobin concentration [Mass/volume] by Automated count 32.9 g/dL 32.0-[facility].0 [facility] width [Ratio] by Automated count 16.3 % 11.5-14.5 H [facility] Platelets [#/volume] in Blood by Automated count 187 10*3/uL 150-400 [facility] ID Date Data Source [id number] 04/06/2020 07:07:47 AM [facility] Value Range Interpretation Code Description Data Lisa rce(s) Supporting Document(s) Bicarbonate [Moles/volume] in Serum 24 mmol/L 22-29 [facility] Chloride [Moles/volume] in Serum or Plasma 102 mmol/L 98-107 [facility] Creatinine [Mass/volume] in Serum or Plasma 1.00 mg/dL 0.70-1.20 [facility] Glucose [Mass/volume] in Serum or Plasma 161 mg/dL 70-140 [facility] Potassium [Moles/volume] in Serum or Plasma 4.4 mmol/L 3.4-5.1 [facility] Sodium [Moles/volume] in Serum or Plasma 136 mmol/L 136-145 [facility] Urea nitrogen [Mass/volume] in Serum or Plasma 17 mg/dL 8-23 [facility] Anion gap 3 in Serum or Plasma 10 mmol/L 8-15 [facility] Osmolality of Serum or Plasma by calculation 287 mosm/kg 275-300 [facility] Creatinine/Urea nitrogen [Mass Ratio] in Serum or Plasma 17 [facility] Calcium [Mass/volume] in Serum or Plasma 7.7 mg/dL 8.8-10.2 L [facility] Glomerular filtration rate/1.73 sq M pre dicted among non-blacks [Volume Rate/Area] in Serum or Plasma by Creatinine-based formula (MDRD) >6 0 [facility] Glomerular filtration rate/1.73 sq M pre dicted among blacks [Volume Rate/Area] in Serum or Plasma by Creatinine-based formula (MDRD) >60 [facility] ID Date Data Source [id number] 04/06/2020 07:07:47 AM [facility] Value Range Interpretation Code Description Data Lisa rce(s) Supporting Document(s) Magnesium [Mass/volume] in Serum or Plasma 1.6 mg/dL 1.6-2.4 [facility] ID Date Data Source [id number] 04/06/2020 07:07:47 AM [facility] Value Range Interpretation Code Description Data Lisa rce(s) Supporting Document(s) Phosphate [Mass/volume] in Serum or Plasma 2.7 mg/dL 2.5-4.5 [facility] ID Date Data Source [id number] 04/06/2020 01:19:57 AM [facility] Value Range Interpretation Code Description Data Lisa rce(s) Supporting Document(s) Troponin T.cardiac [Mass/volume] in Serum or Plasma 0.04 ng/mL <0.01 [facility] ID Date Data Source [id number] [facility] Code Description Data Lisa rce(s) Supporting Document(s) Glucose [Mass/volume] in Capillary blood by Glucometer 210 mg/dL 70- 140 [facility] ID Date Data Source [id number] 04/05/2020 06:27:19 PM [facility] Name Value Range Interpretation Code Description Data Lisa rce(s) Supporting Document(s) Glucose [Mass/volume] in Capillary blood by Glucometer 233 mg/dL 70- 140 [facility] ID Date Data Source [id number] 04/05/2020 06:56:15 PM [facility] Name Value Range Interpretation Code Description Data Lisa rce(s) Supporting Document(s) Troponin T.cardiac [Mass/volume] in Serum or Plasma 0.03 ng/mL <0.01 [facility] ID Date Data Source [id number] 04/05/2020 04:26:54 PM [facility] Value Range Interpretation Code Description Data Lisa rce(s) Supporting Document(s) Operative Note [facility] [id number] lbm [file] == ID Date Data Source [id number] 04/05/2020 01:33:[address] [facility] Name Value Range Interpretation Code Description Data Lisa rce(s) Supporting Document(s) pH of Arterial blood 7.35 7.38-7.44 L [facility] Carbon dioxide [Partial pressure] in Arterial blood 44 mmHg 35-40 [facility] Oxygen [Partial pressure] in Arterial blood 200 mmHg 95-100 [facility] Base excess standard in Arterial blood by calculation [facility] Oxygen saturation Calculated from oxygen partial press ure in Arterial blood 100 % 94-100 [facility] Bicarbonate [Moles/volume] in Arterial blood 26 mmol/L [facility] Sodium [Moles/volume] in Blood 136 mmol/L 136-145 [facility] Potassium [Moles/volume] in Blood 4.7 mmol/L 3.4-5.1 [facility] Calcium.ionized [Moles/volume] in Blood 1.15 mmol/L 1.13-1.32 [facility] Glucose [Mass/volume] in Blood 222 mg/dL 70-140 [facility] Hematocrit [Volume Fraction] of Blood 29 % 41-53 L [facility] Hemoglobin [Mass/volume] in Blood by calculation 9.9 g/dL 13.5-18.0 [facility] ID Date Data Source [id number] 04/05/2020 01:33:05 PM [facility] Value Range Interpretation Code Description Data Lisa rce(s) Supporting Document(s) Kaolin activated time [Units/volume] in Blood 197 s [facility] ID Date Data Source [id number] 04/05/2020 01:07:04 PM [facility] Value Range Interpretation Code Description Data Lisa rce(s) Supporting Document(s) Kaolin activated time [Units/volume] in Blood 197 s [facility] ID Date Data Source [id number] 04/05/2020 07:49:19 AM [facility] Value Range Interpretation Code Description Data Lisa rce(s) Supporting Document(s) Glucose [Mass/volume] in Capillary blood by Glucometer 164 mg/dL 70- 140 [facility] ID Date Data Source [id number] 04/05/2020 03:08:47 AM [facility] Value Range Interpretation Code Description Data Lisa rce(s) Supporting Document(s) Leukocytes [#/volume] in Blood by Automated count 6.4 10*3/uL 4-10 [facility] Erythrocytes [#/volume] in Blood by Automated count 3.25 10*6/uL 4.6- 6.1 [facility] Hemoglobin [Mass/volume] in Blood 10.0 g/dL 13.5-18 [facility] Hematocrit [Volume Fraction] of Blood by Automated count 31.0 % 4 1-53 L [facility] Erythrocyte mean corpuscular volume [Entitic volume] by Auto mated count 95.2 fL 80-96 [facility] Erythrocyte mean corpuscular hemoglobin [Entitic mass] by Automated count 30.9 pg 27-33 [facility] Erythrocyte mean corpuscular hemoglobin concentration [Mass/volume] by Automated count 32.4 g/dL 32.0-36.0 [facility] distribution width [Ratio] by Automated count 16.1 % 11.5-14.5 [facility] Platelets [#/volume] in Blood by Automated count 224 10*3/uL 150-400 [facility] Differential cell count method - Blood [facility] Neutrophils/100 leukocytes in Blood by Automated count 65 % [facility] Lymphocytes/100 leukocytes in Blood by Automated count 21 % [facility] Monocytes/100 leukocytes in Blood by Automated count 12 % [facility] Eosinophils/100 leukocytes in Blood by Automated count 2 % [facility] Basophils/100 leukocytes in Blood by Automated count 0 % [facility] Neutrophils [#/volume] in Blood by Automated count 4.13 10*3/uL 1.8-7 .0 [facility] Lymphocytes [#/volume] in Blood by Automated count 1.33 10*3/uL 1.2-4 .0 [facility] Monocytes [#/volume] in Blood by Automated count 0.79 10*3/uL 0-0.8 [facility] Eosinophils [#/volume] in Blood by Automated count 0.15 10*3/uL 0-0.5 [facility] Basophils [#/volume] in Blood by Automated count 0.02 10*3/uL 0-0.2 [facility] Nucleated erythrocytes/100 leukocytes [Ratio] in Blood by Automated count 0 /100{WBCs} 0-0 [facility] ID Date Data Source [id number] 04/05/2020 03:35:00 AM EDT [facility] Name Value Range Interpretation Code Description Data Lisa rce(s) Supporting Document(s) Bicarbonate [Moles/volume] in Serum 23 mmol/L 22-29 [facility] Chloride [Moles/volume] in Serum or Plasma 100 mmol/L 98-107 [facility] Creatinine [Mass/volume] in Serum or Plasma 1.21 mg/dL 0.70-1.20 [facility] Glucose [Mass/volume] in Serum or Plasma 167 mg/dL 70-140 [facility] Potassium [Moles/volume] in Serum or Plasma 4.7 mmol/L 3.4-5.1 [facility] Sodium [Moles/volume] in Serum or Plasma 137 mmol/L 136-145 [facility] Urea nitrogen [Mass/volume] in Serum or Plasma 24 mg/dL 8-23 [facility] Anion gap 3 in Serum or Plasma 14 mmol/L 8-15 [facility] Osmolality of Serum or Plasma by calculation 291 mosm/kg 275-300 [facility] Creatinine/Urea nitrogen [Mass Ratio] in Serum or Plasma 20 [facility] Calcium [Mass/volume] in Serum or Plasma 8.8 mg/dL 8.8-10.2 [facility] Glomerular filtration rate/1.73 sq M pre dicted among non-blacks [Volume Rate/Area] in Serum or Plasma by Creatinine-based formula (MDRD) >6 0 [facility] Glomerular filtration rate/1.73 sq M pre dicted among blacks [Volume Rate/Area] in Serum or Plasma by Creatinine-based formula (MDRD) >60 [facility] ID Date Data Source [id number] 04/05/2020 03:35:00 AM [facility] Value Range Interpretation Code Description Data Lisa rce(s) Supporting Document(s) Magnesium [Mass/volume] in Serum or Plasma 1.8 mg/dL 1.6-2.4 [facility] ID Date Data Source [id number] 04/05/2020 03:35:00 AM [facility] Value Range Interpretation Code Description Data Lisa rce(s) Supporting Document(s) Phosphate [Mass/volume] in Serum or Plasma 3.2 mg/dL 2.5-4.5 [facility] ID Date Data Source [id number] 04/04/2020 08:47:27 PM [facility] Value Range Interpretation Code Description Data Lisa rce(s) Supporting Document(s) Glucose [Mass/volume] in Capillary blood by Glucometer 215 mg/dL 70- 140 [facility] ID Date Data Source [id number] 04/04/2020 05:25:05 PM [facility] Value Range Interpretation Code Description Data Lisa rce(s) Supporting Document(s) Glucose [Mass/volume] in Capillary blood by Glucometer 133 mg/dL 70- 140 [facility] ID Date Data Source [id number] 04/04/2020 02:55:39 PM EDT [facility] Name Value Range Interpretation Code Description Data Lisa e(s) Supporting Document(s) Consultation [facility] BHRHXp9tTcTKKsDz80/FBEzxPBIgk7HlZEgzEDd2VThdFRLzO1KbUKE8lB2wSIT5QPqPZrLhPiXcKwA9 lbm [file] ICAgICAgICAgICAgICAgICAgICAgICAgICAgICAgIC TiCTYvGWPuAFJzCQHdXAAqSGHxFJDnSFGdMEAbHUKgLKMfKGVcZODkVXUsGYJkWJTgUYWzMT0VBLHfJD AgICAgICAgICAgICAgICAgICAgICAgICAgICAgICAgICAgICAgICAgICAgICAgICAgICAgICAgICAgIC AgICAgICAgICAgICAgICAgICAgICAgICAgICAgICAg ZJKwEK7DXUTnUFYfNOHpUYIcZGMmKWOrYWXeFLBnSIVnVDRrAASqAFAgPLReBQPwIEToVRXrPURxMLFw WWJzMCCcUCJxLULeJELkVQSkAKNjFBUuPXIgWYJjOWIiNFPkNYXiDLQwXWFgIR1LOXQoDTKmAGSlCKOb ICAgICAgICAgICAgICAgICAgICAgICAgICAgICAgIC GzOZOgJSEfOGDiHZSkNDMoVQIgROJoWGKwLAUoDWAcTPHuOKAjMNQgEMIgUGAfQGUnDMZiAZAwPR4JZA AgICAgICAgICAgICAgICAgICAgICAgICAgICAgICAgICAgICAgICAgICAgICAgICAgICAgICAgICAgIC AgICAgICAgICAgICAgICAgICAgICAgICAgICAgICAg QXKwXOItJK0DVUDmDSNcSLPwMNHvLLTaKYBaUSPxGITeKNTeWOQlVFKlBLAbCLNvBQOiVJPlNULoBDPi CDEiGWPmZBUrISBkFKFrUKWtLPNyQICkALDsYLCyGYJtWYTpOITqFHNhJGXqLXTmXG7WIDRtLVJsIANv ICAgICAgICAgICAgICAgICAgICAgICAgICAgICAgIC AgICAgICAgICAgICAgICAgICAgICAgICAgICAgICAgICAgICAgICAgICAgICAgICAgICAgICAgICAgIA 0KICAgICAgICAgICAgICAgICAgICAgICAgICAgICAgICAgICAgICAgICAgICAgICAgICAgICAgICAgIC AgICAgICAgICAgICAgICAgICAgICAgICAgICAgICAg KONlMUTaSEGcWI6TJMLdFGDqWBXdVYRnYHSdQCIzGTPhQRKcHLIpOXYtBCLgANHkQDPcZBKaAGCfUHWx CSLbCMZvLPPsTZKrDWFpBMFoZHEnRRWeXOEhACUhHZJeHWEhAGDkNZMbONUoOOEhSNUvUV3AVV90vESb c2G1ALZpJY5yxfs/If2RDUkcchAmjFBbQD5YSnQfRL 8gmq7FLaWdMB2zpz8BWZoQAkSiG7S2tTMpSYZtVVQLJtKgG18wXMwzQh83KCjdUEYeKsFzKFl4Cw9QRr MuX0qjMQZuToR6RIBfRmK4SCQxWiB7ICBnMlTgADXgSGHwAQCeXABXTDU4SXEdChKuJdPrVABdRTntDM WXSL3OGlJsF3XnvK97WPrWIc7+DQplbmRvYmoNCjM2 NVEac9QrMYd3KQ1CYYYpNvklt3GtWfyzSFEBTMgsBF5SHNM3LTI0EHIjDa2YNDGjA153bmKdHV1HTm2D WqYoIZ5tjv1XLwupCOOoAoxGQhl5IHxqNJ5ZqZXnDZaWs71zkAe7frOeeTPXzEHqasoycnOVnddcNRMZ BhKZDVO4BHPeJNPxMhHxBQUdEcrrTbMGZNoHUoSrA3 Puc8DaBxT0JYHiDlTpXXuuNSNgAoR7ZQ67mIwnAR7MBXAuWFBhUE54DPE1UPRmOd5XGw1NCbVcDM4rfi 4GWgfwIOSlMkmISyx4YRnnZJ6OnQKuT4XagKEgf9sZDxGwZ6IBJQR0STPrWk7TKYDiCoNuZKYgMGckUC 5xDWXmWPVKmWivpqT1TU9NIN6vdyGkFR8MOqOoPv0c Ju8DKbUqL6MkV6LjYZRaMTAZGJodQL9OJOlmQE7nED8Mm4WSqBIwsO2svo9ZATMjCTWxBvdxpz3RVsys G1Z3gSjdUECoMoOxPCOKGSplMM8SLKOePHF7AVJdKPBhGVZCQcVpR34iVK4MT4Lji57tTiT2AETcSiVy LIymML85jJqwndQxtMRskZgiRX8EYq4+DQplbmRvYm cLMorhSVCDFhZxVppZHrBeCFQgEGQdPISbMmI7CbSvCv5HWYNmOJGcNSWiGkYdHXLwZJCnGSftSJRwJX D7CGlvUVUuSHPoKV9ATzWsEXQzBUR9OXscUVCfFGMbba9JSXXaQHZdZVT1TjUdHWCvMSFgAWysWMFaEZ YzGql2OXSsEPBqSQ9DHyUwRUPvSKC4BCKnSJHuSHZs rl7RJVXiBGSoEyAiRKMaGHOfBINmXXtqZYJhDAO7FCJ1XNAkUMDdZV7YJcRxCFScYKS5NXRbJJUuLRYy ar5XANXjCCHsDLimFDZkWKXrWATtCDrgIPKyKFX5HXIaXWIoZEJwML6GTpBoVGUrHTRnIcvoTFOxVACi xt5DOVMbDEHdDcr3KdWsKIGcQTQoROguECJxPAU0GE T7MUIuGGCtCH0BMlZyGRUnYOlgBoTjKMTxYKTmna6BXMLfPMVcFBFkKFIbOVLuEMQiAQxtQSBqVRLnPT O6TXQuRATpHN2EIyPvQYLzMgNkPtOxXGDjKHBkpz9KSKRbKTXtZJL8QQImESVnAODbDMcyUATbPPF1Fx ncHFXaDQTyNQ9HXaRtHKJpLmV8DyQsHSVtPXBmcs5I PKBbHXFdFvmoUfEyRHXwDSIbHTdqUNPkDGR7XAXxLAYkLXWlWG8XGyIgXNDfKxa6EjdfDVKbHBRqdb1S VDNkNTIzRMM7RURaBQCzDHOvUNabBRAyDTZ5ZgF2FZLrYXMiBX4LExAlSDFhJMMlXzEfNHCfCARjng3C SPEuGFW4Bej1NEMcAXCcWRVrVPczBGThHBLtUBl2YT UrILDoYF7MJbTrXCClSUF8RNTsVOQsHUKxte0HHZIxBAV6Ipw5SZOeBHNlSVSoUZwbMRSdKSO4Nbx6BU PyMAQpNO6GNvDpPNWoMBR1HtzxDAXvKOLavr6NBMWmPNH4KYE6ACMrYJWsEWYnQQhaHQRyEZY1KNt7AF LxTWMiXD6IXzJbEBUaHXC5PfQcBUAyIWTtui1JHDKm LRS9LeEqYxRdJHGoFWFyRPrpBKPrBXK1SGf9ZLAcIPXmFN6FLuMxGMinGTVVNjt6GVjxU7k6SRJjTB7J L5Jqo0DnZmpyPFMXMPpcSG3gzgOoPUWpVu6CP2pPMagpFzA5DIDhKyTpZbmcGDGtXIM4IKooARKtOoRu KUUyIQ7cDUQ8IkCvVPIjXDCzJpH5I1HjAgusJFFnCJ HqVBKzXKUdJvKlDM7FUd4REyG6VRX2gKIcJq6WAVr0LjOQFnBlPC8XVXy= ID Date Data Source [id number] 04/06/2020 06:54:50 AM EDT [facility] Value Range Interpretation Code Description Data Lisa rce(s) Supporting Document(s) ABO and Rh group [Type] in Blood [facility] Blood group antibody screen [Presence] in Serum or Plasma [facility] 04/07/2020,0000[facility] [place] [facility] ID Date Data Source [id number] 04/04/2020 11:55:23 AM EDT [facility] Value Range Interpretation Code Description Data Lisa rce(s) Supporting Document(s) Glucose [Mass/volume] in Capillary blood by Glucometer 186 mg/dL 70- 140 H [facility] ID Date Data Source [id number] 04/04/2020 07:48:48 AM EDT [facility] Value Range Interpretation Code Description Data Lisa rce(s) Supporting Document(s) Glucose [Mass/volume] in Capillary blood by Glucometer 155 mg/dL 70- 140 H [facility] ID Date Data Source [id number] 04/04/2020 02:47:04 PM EDT [facility] Value Range Interpretation Code Description Data Lisa rce(s) Supporting Document(s) ABO and Rh group [Type] in Blood [facility] Blood bank comment [facility] ID Date Data Source [id number] 04/04/2020 03:56:[address] [facility] Name Value Range Interpretation Code Description Data Lisa rce(s) Supporting Document(s) Leukocytes [#/volume] in Blood by Automated count 6.7 10*3/uL 4-10 [facility] Erythrocytes [#/volume] in Blood by Automated count 3.22 10*6/uL 4.6- 6.1 L [facility] Hemoglobin [Mass/volume] in Blood 10.0 g/dL 13.5-18 L [facility] Hematocrit [Volume Fraction] of Blood by Automated count 30.5 % 4 1-53 L [facility] Erythrocyte mean corpuscular volume [Entitic volume] by Auto mated count 94.6 fL 80-96 [facility] Erythrocyte mean corpuscular hemoglobin [Entitic mass] by Automated count 31.1 pg 27-33 [facility] Erythrocyte mean corpuscular hemoglobin concentration [Mass/volume] by Autom[facility] count 32.8 g/dL [facility].0[facility] width [Ratio] by Automated count 16.0 % 11.5-14.5 H [facility] Platelets [#/volume] in Blood by Automated count 214 10*3/uL 150-400 [facility] Differential cell count method - Blood [facility] Neutrophils/100 leukocytes in Blood by Automated count 66 % [facility] Lymphocytes/100 leukocytes in Blood by Automated count 22 % [facility] Monocytes/100 leukocytes in Blood by Automated count 9 % [facility] Eosinophils/100 leukocytes in Blood by Automated count 3 % [facility] Basophils/100 leukocytes in Blood by Automated count 0 % [facility] Neutrophils [#/volume] in Blood by Automated count 4.42 10*3/uL 1.8-7 .0 [facility] Lymphocytes [#/volume] in Blood by Automated count 1.45 10*3/uL 1.2-4 .0 [facility] Monocytes [#/volume] in Blood by Automated count 0.60 10*3/uL 0-0.8 [facility] Eosinophils [#/volume] in Blood by Automated count 0.20 10*3/uL 0-0.5 [facility] Basophils [#/volume] in Blood by Automated count 0.03 10*3/uL 0-0.2 [facility] Nucleated erythrocytes/100 leukocytes [Ratio] in Blood by Automated count 0 /100{WBCs} 0-0 [facility] ID Date Data Source [id number] 04/04/2020 04:12:30 AM [facility] Name Value Range Interpretation Code Description Data Lisa rce(s) Supporting Document(s) Bicarbonate [Moles/volume] in Serum 25 mmol/L 22-29 [facility] Chloride [Moles/volume] in Serum or Plasma 105 mmol/L 98-107 [facility] Creatinine [Mass/volume] in Serum or Plasma 1.06 mg/dL 0.70-1.20 [facility] Glucose [Mass/volume] in Serum or Plasma 140 mg/dL 70-140 [facility] Potassium [Moles/volume] in Serum or Plasma 4.6 mmol/L 3.4-5.1 [facility] Sodium [Moles/volume] in Serum or Plasma 138 mmol/L 136-145 [facility] Urea nitrogen [Mass/volume] in Serum or Plasma 20 mg/dL 8-23 [facility] Anion gap 3 in Serum or Plasma 9 mmol/L 8-15 [facility] Osmolality of Serum or Plasma by calculation 291 mosm/kg 275-300 [facility] Creatinine/Urea nitrogen [Mass Ratio] in Serum or Plasma 19 [facility] Calcium [Mass/volume] in Serum or Plasma 8.7 mg/dL 8.8-10.2 L [facility] Glomerular filtration rate/1.73 sq M pre dicted among non-blacks [Volume Rate/Area] in Serum or Plasma by Creatinine-based formula (MDRD) >6 0 [facility] Glomerular filtration rate/1.73 sq M pre dicted among blacks [Volume Rate/Area] in Serum or Plasma by Creatinine-based formula (MDRD) >60 [facility] ID Date Data Source [id number] 04/04/2020 04:12:30 AM [facility] Value Range Interpretation Code Description Data Lisa rce(s) Supporting Document(s) Magnesium [Mass/volume] in Serum or Plasma 1.9 mg/dL 1.6-2.4 [facility] ID Date Data Source [id number] 04/04/2020 04:12:30 AM EDT [facility] Name Value Range Interpretation Code Description Data Lisa rce(s) Supporting Document(s) Phosphate [Mass/volume] in Serum or Plasma 3.1 mg/dL 2.5-4.5 [facility] ID Date Data Source [id number] 04/03/2020 10:04:[address] [facility] Name Value Range Interpretation Code Description Data Lisa rce(s) Supporting Document(s) Consultation [facility] [id number]/GLXczOVKwu7YbDYmeJGl6DTarXJZxC2EfTER8qX3rNNA6ZBhQErCkMxLsExS6 lbm [file] [facility]+QjNAQJNA2oJs3lTcWTbCZPgUc0sCc8isryruJaN [file] [employer]+E7HDEl43oXQsFbj9gCqw9Rz2iUydt3FpLogDRbX [file] AgICAgICAgICAgICAgICAgICAgICAgICAgICAgICAg ICAgICAgICAgICAgICAgICAgICAgICAgICAgICAgICAgICAgICAgICAgDQogICAgICAgICAgICAgICAg ICAgICAgICAgICAgICAgICAgICAgICAgICAgICAgICAgICAgICAgICAgICAgICAgICAgICAgICAgICAg ICAgICAgICAgICAgICAgICAgICAgICAgDQogICAgIC AgICAgICAgICAgICAgICAgICAgICAgICAgICAgICAgICAgICAgICAgICAgICAgICAgICAgICAgICAgIC AgICAgICAgICAgICAgICAgICAgICAgICAgICAgICAgICAgDQogICAgICAgICAgICAgICAgICAgICAgIC AgICAgICAgICAgICAgICAgICAgICAgICAgICAgICAg ICAgICAgICAgICAgICAgICAgICAgICAgICAgICAgICAgICAgICAgICAgICAgDQogICAgICAgICAgICAg ICAgICAgICAgICAgICAgICAgICAgICAgICAgICAgICAgICAgICAgICAgICAgICAgICAgICAgICAgICAg ICAgICAgICAgICAgICAgICAgICAgICAgICAgDQogIC AgICAgICAgICAgICAgICAgICAgICAgICAgICAgICAgICAgICAgICAgICAgICAgICAgICAgICAgICAgIC AgICAgICAgICAgICAgICAgICAgICAgICAgICAgICAgICAgICAgDQogICAgICAgICAgICAgICAgICAgIC AgICAgICAgICAgICAgICAgICAgICAgICAgICAgICAg ICAgICAgICAgICAgICAgICAgICAgICAgICAgICAgICAgICAgICAgICAgICAgICAgDQogICAgICAgICAg ICAgICAgICAgICAgICAgICAgICAgICAgICAgICAgICAgICAgICAgICAgICAgICAgICAgICAgICAgICAg ICAgICAgICAgICAgICAgICAgICAgICAgICAgICAgDQ ogICAgICAgICAgICAgICAgICAgICAgICAgICAgICAgICAgICAgICAgICAgICAgICAgICAgICAgICAgIC AgICAgICAgICAgICAgICAgICAgICAgICAgICAgICAgICAgICAgICAgDQogICAgICAgICAgICAgICAgIC AgICAgICAgICAgICAgICAgICAgICAgICAgICAgICAg DMUrESBgBAXqKFZoTVNsYJItIMHfATGzMDZyXZXoFKElVREcDZGyITKkCWRfDZQjUFEdTKf9E0akZUCb UGZnEZ6yVAq6Sw3+XHyUIyYeLSD6udFrgS9LKS0fu9QeNBjrYDAvi9AtCWy5GL7TLOUdCAjfUN2PAUjl ac9MYBZeIDSfyPSDx8hiJwVdFKW1VBOnHdibZS9BNN SgY2tqcfKqFEYsQWLBDZtfREGEWFouOMQVRDCvIKRrQtEbTuXoMKNzAXGiYKAZUU6SAhLzH3CufG07SI YNCj4+CJdrcqRcPuqPMsH4VHNnh8BhGEo9MT7UTPVkZfzpn3KxKZDiPEHPLDvxRR6ZZIQ8ULB0RUWsOr 2ASSDyV970zwKnUM1ACm8HRrUxYI1tsa7SYKEgOFGy AcrHTol2JSvbOJ1MnFGvELpUt06ouHp6opMuyDZHruWoHN0eSRVaAvsfSBGJMlDtiMD2KvA6XqMhHeJw LWb0JPTwOY2pBEkgNM6ASFV4RNaxRMMpUQKgZ5tHZbQcQJFuJcFxiYyiHX9QIjYhH9DbjcFnjWU2QAUw IFINCj4+FGimpfFsOooZYyQ8MBYfi5SrVPd0IE0GLA PbDGyuTV1IHQQobZ7zMNbgVK6ESuC1LuVhOPLYEjYyU11tcOVxEOn3K5XlNlLeGRSdAcylYXYmRKsrXu FtZXMgWyBdDQogID4+ID4+NOiqAH4CNMsozdXmZPAeEo5BUSFaWDIpWS4aVPOaAHEuH2Q0xNhrLUSBXc YvD9zdvwzwHN8qYXJxC062uKjabpUcAVM6HBYwTa9C IYKbNYK0XDCsfLOlLXTeDPWPLPxsYJ3JbRPsHTE2xD5iSZgnGAVpJBNjD4tPYuPleBdjDH64eDvhotIg bCBdDQo+Pz2GYQ6gj3MbLPr8ssIhTOlnUXE5BYknUXBrCRYpTIRxQSR3ANI4JGRAGbQxBYAcQVRsGXgk OFLgHIUufe9EKGTbBWGxJUBdMIKyJDBeLUYyFOzaMS UtGiE2WBE7YDAgEOCdMF9FTcTaZSGnTAKzEEqrYLJsXXHrdf2FMBZyHYBsARA0PJWzQJGuLBRmPVlhRE SfYNG6Cbz7RSMkBVNxBR5GVsVvCNTlCOk6ZrAaFIUlHDDpcv5JHBQbRLOuPdwvDmErJIQxAVMqNHviKK EoSGGrNDShCOUsDRZxKA2PPfAxMUWuIHWgGAraPZMf GMMjwo1LUPYlXXReRdNlHKCbWRFvPOUjMXvsXIUxFJJcOyT8ZBUbMWLcDO3GRxXqFSYqQOC8MOHkYEUi QKZbjm0IYWOdBRYfGOGcFnWcSGKkHTVvMMhfKSGuYDD9IMM5BHNoHFWsEL5LDbNwVIRqVLffSoNcWLNk BOXpth4OZLXvZTGrPXV1GZDrBHAoSYAtFMxcRSWwZE F1HLyiBQAxXAYiFG0AAxSrPLIgQKe3EsXsPKKeEGVige9ESWYoEFSrDRJgBQCuFBMeYIUfGZqfWTYvTR OjBAQ4ZSJzAFGmDM4ZXzSxOVIlWcVwRpCnCKEoHVGkvy9JMSMzJRQhTQj2OUSjARVeABJrXRxbZRKqXB BuAUm0VHLoADZkCS3MLcHmCGRhGxWyGrnwJTOrMXLc tz7RHGKhUJU4VRL0AQWuNLSlXSJuYFqdSTDuKUDiIWH8TGEzMJNoAA4NGhOaZMDkFLMjElWqLWBcUKKy zv1QPALtPJZ0UGhsQaEjTJGaXEBsIMplKHJtVJQuFKe3FMZsHUIfLR0XZoHdCNFgRYQpEoYoJNSeRFQb vo2DNVUbVLK5OmQeAXPuFYTcLNXzAIwdXCXqBWVdRw l4GHUiISHpJK1IBhOoBUFqMJjoOWWwXOMkOLEwds4CNZWqDBX9SkA2JxDiWIOaTMVyTMrtULZpBJW0Bh m6WPGzLMDdDS7SXxRkXRGvTEpwJxJmZRJyHOPtww7LZOOeAFH1PEP3WGFtNXXnYGFhQDpiNMFtHMF8Rl B3ATAbZOKqRS1IHoUiPWSwFcD4OJzbLSOgCOPahg7E OUIzOHB3HyVsGMAoUMHgNGZcHQaaLKHuNlK2YIpmEVAuZVClUJ8GWyDhFKHfJMFzPEplRIQvIDZuoy5Y PHUkVHUvIeW8JFDgQGNvALQsFZzrGUIzVjK4AhM3EWXcTNCiRX6GVuNpNDDaTDR5AOMdARAiNAHgfu9Q pDGllBmhxe6BMCpLSk2OfSqzEEW8QCnpCc5iyXI6Am FjOTDCCq5CvsYsTFOeZYASVVvjDSFqANS1R8NwXmMdXuQ1LIUzKVOoYSY1PIXoOAY1VCD6KKIhIhS1Yz WoAzAuHwJeDai5UMT0QDPkVElsMTZ5IXN7LxpjPJD+EY3zUHr+Jm1Fj9TyqjB9gaXzSTlfGEukKyNTVf NdGH3TFVn= ID Date Data Source [id number] [facility] Interpretation Code Description Data Lisa rce(s) Supporting Document(s) Glucose [Mass/volume] in Capillary blood by Glucometer 177 mg/dL 70- 140 [facility] ID Date Data Source [id number] [facility] Description Data Lisa rce(s) Supporting Document(s) Glucose [Mass/volume] in Capillary blood by Glucometer 122 mg/dL 70- 140 [facility] ID Date Data Source [id number] [facility]:09[facility] Interpretation Code Description Data Lisa rce(s) Supporting Document(s) ED Provider Note [facility] KMDOWt6wAhTLNeNa52/ORKzoNJQhi0XpLLndIVa2KQhzAEJkV6HkKYS2rJ0sVSC3WYdFMeDuLaQtHiP4 lbm [file] PqMOCmBEVzzPVpBTd6V89rpEGiNVsgEW2LAUU+Chintan+Tz5SIAWeGJWmNJUcWyWzMJTCXyNgX2ZvP0MWe5 KjO0YbEJ69mEkvssHjFTfeDO6CTZ3jBGGfLIHPUW1LgHDkxG1zjyI0EJLvSSNEAjKsG03vjYTwXUQtCC C6MNIwVm4LSCHfT0FeiiUhjGpglqOvPRBhJRLVAA8T KFcvdnQxkNIzrBhlDD96aVdaCU7IGx6XEvEgEZ4mms8DvUJbQm8MAXD4PA0IUCPnOUPaSSWaMRV3ZOGr RtBoEDiwGHWwYGAmRYX7RPViGJQbIF5ZNzAyROFyXVmpTkowPRIwDPRzbi7RHDXmSKD0XCXlEMLbVWNz GBFhFTevZOCgCZNfKTL1YWVwZSQjLC8FYfNkGERfEK H2YmxuYASvXIVawb6YZTRgKMNaHyZ8USTmWTMfWQZvSHftFMVyFXE6MvUhWRFbOFByVI0ZJtHrWMKaMS Q5VUqaGGVbVLErcw9HBDVpLJPnUDA1PELjDNBtHGEoYJvdJCRxGKP7Rav0WBLpNQUuOY8LVsZzHXDdUH FnJIJxLFMhXLRtkp1BPPFtENQbLPBaFhHpDNKnGDNh BCopJWUwOAT5PGooHTNwNHZuTA9ZDtUzPFEnTDW7COccRRQqDTUqsr5FNIPzCLRpRuK5EYKnWKBmKHIl RBgxPOCuKZA4PmO1JPCpDRRoMM2ZZiPsWMTmQkBgQCliEPNeREIwkc8XRKJqXEZsZPM9AJKjUTUeMHHe NXvlAWYvJJXdAvI2UXHyPJVbNA3LZuBhNFZcTlY8Gs NdSOQnQGHelh3BQMTpGDLsNTiyPZHjBWEoIYSaZRimTXEcKNN0BUR7EQAcGAHkDS2TRyTzMKNqEiW7Zm NgMOBqDPZrql8BOHDzDUBtCkP9YaMeURBoXOTqLNipFUNcIBP1PdF4OPJmMFZxSJ2ZHyItCEHmGxjzDJ OoLRIhLJSasv1EBYShLQZoNWBuBkYbVKTzEJQqSKym EUBeTFZ0WdB3JYSqACAfQB7DGkEnHAMdDlq3EvErFNRiJIRpfw8MZBTcQVFiMDf5VYNjKCOfYABxZFpy IVVyAVEtZKG8TLRoGTXfHE5RFwXwVXUvMDA9SczoUDKmZMTdyg4XXXDuIFG6ALc9LzTiMPKaYINjMZii IQPbBZMdNUE9GXVoCFOtML5YEtDrCUJyGSHsYMGcEV UeEZYkbs0WNCKgBTD4RhL3GWEyTYAcRJJhIDpsXQSkUZGgPiMbEXIcSVWyPS9VDoPwCSZePJpvLIxbPQ NjPSSgoi1NFCXyARR9JhM8SXWmXVTeZIDxOMkgXEJuUUJ8HXc4VQOjNUIuLT7EUnQiXGKiDZjtZPdfJT VjTKPmpu1QTKDyRLA3IIAeUYRjJDQmSJMcDQztHJBj OEJ2UhQ9KSAuFKVdLQ1UDbVuZMTnKLd7ASRuLGClOLUcrj0DrLVmrXtkdc8VXPeYPw0CsGfbNTL2WDgt Xl4esEL4FXRyXPNMTn7MfrFyUVXsKBKSKVtvISVbMFWmL1B5UDahS8EiEABrDUPeR8XgZWjoVVIqYrBj GZH6JyB1PXHsJkIjF5Y1FJVoPVZ5U4G0QwJfVQD5IX ZmGoZ7Wax+CN9tPUm+Nz8Jc2TjfaC5euOlFWi0OWJlSk7DXSBWL9OSWx== ID Date Data Source [id number] 04/03/2020 12:16:[address] [facility] Name Value Range Interpretation Code Description Data Lisa rce(s) Supporting Document(s) Glucose [Mass/volume] in Capillary blood by Glucometer 136 mg/dL 70- 140 [facility] ID Date Data Source [id number] 04/03/2020 08:42:[address] [facility] Name Value Range Interpretation Code Description Data Lisa rce(s) Supporting Document(s) [facility] UANDCi7aWfCGVrOnt1LfLgGxSKPvDP8zpgj5K6U3qNYaQ7TmrRQyz2rdQ5YpL9DnCZGjOFKIMD3MxTAm jb2 [file] 5G/rodriguez/yDS87Z15++Vbd5iXG5w1V0Q/2TL+axf//ms99Puz/6/47m5bbfg1/2izR0kipf/M531u/M7U/F 9/E9v4n+/KH+P/ev7+P4mSg3q+au/7na1/zyP/n+ue 7uv/8Q/5+hkfqnD15q5E+8/+iRZQJ7n0gshF1wI0d8flu2b698PbTece/p/5dzHu8lC+3/h/P9Atrloe 7+Wh2cb5x1U+Tv29U/VAk1yh8r5l/x++wT41L41/rw/E98CG3x3Xaf2zo3ze/pC609bFb+dpb37+9tff hi1e0R5+++fS46+964I10Ri079cs/LEGAL DOCUMENT SPECIALIST/O+[id number] [file] Mgct1zn5Jk0IO+NSyBVyg/zcn+M69+a5fl2W4+znuALyAfmAfEI+IU/IE/DYLAN/QigmGDfIn4ZJQITPYJQ nG9ey96KZqypUTu1VN/IB+AL2ld1yJrbR8eA7unmcmL72dnyM+GIqAPriSsbYsc3Fmuz7Jmxj9Gnfs2W rHX2MhTI8Wy3v9Ooh7EPzL0DB8G+ef2HQ7hhR/cx5A z3Nk0BH+QBeUA+IB+WY4eu2Js9My6N49Y3t7bIEObLhk0BM9d+Dn0d+os6lzjh9Twea8Mok22VmP14Hn H67Dc2Fea4Z/h+W68m6UhV8CxEyj9t66H+NqsxbP3U8DfYbg2l61Y+FbwxxN3X1E9I38kL/Spwv0L+VS D/KpB/Senior Care/KtJzrdS2uoZ+NXC/Eyr9K75740Z0ayK+ PHB/Hrg/Th6TgZ0F8aRI/Ana Lilia+E97GF4H5M8FNgKJNRDVEV8pYT5lxacHHx3EM/IB+PBeik5wh+EvhP6 Qgb3tG6ZH/QfPW4H9BuWgjvap5uhr9J6uB1F39T+CX0T+mh1Slzv3Tlkk9CpvX6FoqP/CsQHA/HBQHww XH3LuCeB7mCOnZWNTfwYByFwaWZ8IDNrTTJNF/HBQH ahTQ0ZgQlC2wRWnJSACl8qn2L04BP5qLZ+OBAfHIgPDsQHB+KDA/RNoozcYQoaLX67WR2ivW4ScQjB5s MD8cGB+BUJoBSfUhfRZxtAWj3LBfnvhvGhuMVSA/UWzze7Syv/DME9g7eT4WBvTbyTiRHnkUffSgefhu 89+IyQA84W9UBqLnQrE4pCdnD6UTjPrnciC7PQ0Rv+ ZK6wodoNY4//eeiEPCFPyAtyfL+AAw9LBnmyd3Qn/SI+OBAfHIgPDsQHB+KDA/DGcfrgFBucNN87AI1v iP9Zy64DpQ48CmC7021osz9Glm/IBXKBXCE/9+cB/9Xw8/wdfp6/cy2aoR1JicGkP4CSmOnySOkAIq6d +le8Ucob8Enjz4PvNUhXanIgUXvXzX/1DuN4tzKoun S27rE05uQdhdKi6hw/Fr/aYGwTjm87We/s0YISUA/Yo4XUOzesGs7FPCwe1IH6h3s+2QH/1RgnXjYWv+ q7ehi16dD+z4ovLD/jnAUnSEqDT267UgpryZmJ7cRIrPL3zu23L37uQg+6Rp//4EpV3OfB/GqfZ32/y8 88Fr/keRCI3ZurvXbW/KqbXI/Qc8dRJGi+1bGGsfiV rlqMsfhV+5IL2exO56bzHkip+42FuT0FTlps+hXsuMOqgN+praYEuMXNaIZNwR43+FXXhqy6+E37P5He C33+FV/oay1+1XUiY/Gr9v+Rcl8yXzILai58NmKUx+l7n4h8cqjScuHMa+J405kW3ss3hZM8tg+Lxa+6 DaUwjkR9FuOZdMRdwV+MPPGFkSe+Royal/2jZf/KrrRM arF7djE265p6N99RRZD79gwz/LfsnFg5wTrA0Vp2I6Onoc756p3Za/AvBzw3N30Mn5NOT+vzUgx/2qcL 5a2Q4K9+fC/blwvwK/muBXE/iwrn3J4JcRbmCLwmm63HX/muBXE/nbPpr5V5/DN+Z1+MZEfvtEfvtEfv p3XyOcp4sbL7hdT4duG4fgI0xtD7elP1zuK8pmV9gz nNmaNzkCUb3Ojlc28ZU/muBXE/veta7P2PqFxcVWz8fhaZpoP+TNoOZmlYqsZlnW0yF50UD12TKgj7MR pg0YE8C+Yu5ABetY+zn5Guju4LdfB/Eji9TfI2zgNs/aoi98Xn3DF+CS5fG3fNbYciDb7QW7byfmwyi0 pp/5lnu84ld91r/3wUMzlSynDqzN3iQV4RA8E4+r+j G58Q6TT+LL2sS3cmisx/KIrvqM9CSwKsi/ze1MMeSC2Dd3Qz9W78hKZ07RHsiktnbBH4Ee73b9+Ni/+V V/L4HvN/Z3Wl2dhSmA/KuJ/KuJ/Iz6lK9T9oEEsl5JolB4u8A8U+oHJ+oHJ+oHJ+oHJ+oHJ+oHJ+oHJ+ oHJ/xXE/cqut562u+a8F9N+K8m/FcT/qsJ/9WE/2rC eyYun2wpM895qmr7OkL+qwn/3AM5hFP+OBEfnIgPTsQHJ+KDE/BXjtwuaUalnQblO9wOfaFcBKeNUzUE WBJjnRBmkV2VxBB4SzLG4HsZp2EvSn+CvgV9C/lG5F7fJ5Q4wQ8CR/CmFY93pd5oNg+CvgV9C/oW9C3o F7nwcL9+eV2QC+QCuUKukJ/5lFi1T5ji/M0zrrnY5b K1VQ7pe3SBdFYazFqeO++/Kef9N+GIFLFFfTAtlnzvt37XrQZ5WqLF0BqLU8IySL+LumV8gd+meN7G4B cn8tsT+e2J/AVNadpudd7D360La0/phxmp1dZ65Aq31rH/KuG/SuS3J/LbE/gpedl9BM45Cc324c5W+K 8S/quE/nehk5z2jjB+q4T/KuG/JrjoOu9veE3a9k5Y +K8S/quE/raQ101An5/thohd0nJ42Wa62pO+eyK/PZHfnshvT+S3J/LbE/mkkcj2AX85Rg18kl+eyG9P 6Jqu7vcS+e2J/KHUxchchf1D595Zt1/ruvyd7lF75Pr04yZ+e6J+MFE/mKgfTNQPJuoHE/WDifrBDOgb 9Cfco7OewS9YuXH5Ije9fG+HgkD6Ste7mI+AvuBXOa DvgL4D+k9uD2UdoG0H+d1tE4Al+jMk+jMk+jMk+jMk+jMk+jMk+jMk+jMk+jMk+jMk+jMk+jMk+jMk+j Mk+jMk+jMk+jMk+dHnXUl2Al/5KV8qUrrpAI/0ZuFt87xJyyQzSScQGXQA/LwPZvMraXm/D/RlCF5EL5 fO3TWgIQzJxjBS6Br2WCk7De2rrP+PiG7H6I3u7w9U +VeJ/KtE/Moy/fqXw4CJa7rf+HooyA9tGo6vu/db+M5Nd5UqUnV0SeO/VcF/Vci/TsPyUaKpDtkMKM9G 4FcFflXgVwV+PjOBGX7V0LeVuhIoAwN+ZUcEXxGOgqrrQV4CsD8J2hQK+GAhPlhyvt+C/4dbrah1axc+ q0L/q0L/q0L/q0L/q0L/a6S0GVNxzHq+YOY6DNe1Bw zkX5We/OckojQxscLvcGiGV68Sz548BPUCx9p/fS1+5UTS1e0G+3j52/ffLH/7/r9L3+EsxkRJm44/8l UK/qta/Zh8AkQ8RndK8FJGUooyX9/dyUa56Lcoj2zLw7sjtFg+YusEQHtfVspeLrctiX0XRw4p39Qs+V s4Tleye/lVf/2Xg1gQDgvflE+8Fr/qmEV1/6uxj+OO VQR4w7meghh+V/t4+dtb3+5/Wr15Jcj2C40Ok+a8cBj8smdklcer2S4m/ftv7tp6/1V//sWvfPnqa/Gr jl/M1xmzQ1mAetbxBEuauG6phm/pmc065HpGqt+rtnP3v+f29M1lCjbe9Vm/1f6/sdYswLt1I8tzbUxq 8ywxoa49joBDtSa/2uuH5n9PuMwKb8b2pX4B1X2MQ5 ZUgf3c/a96nze/kw2bq10B17h6al/c3xl5An67zAwO+VeF/PZC/Minh/4oKd6QEkrepLrS0HkZ1DqF4I5 TA/Xng/jxwfwa/LfCwFb4v4QwNoptzzaV/SfFrEi5p8ViNlaozbnQ/IzSgLu2b1EgEwxjyveG/KvCrAr 6y6WbAghuyfqR/KcRmQz2z2ZdZ/6tC/6tC/0uSf6BO /WLuxbTXW5xjDceRPtweIvi2g2U25hZ+eyG/vVA/WKgfLNQPFuoHC/QDfhtFLh8tkA2yOP1NsM9o1Y5K 3r2E6BOB+sFC/KQjlyUTG6rbDsrPKgpsEsq5p2Y2nIL0ECA+lMi0YfSr8Kk6GIS+XEeQSz20L157Ea4P CBEhokSUiBExImdjPxaBRRAJIoPIIDKJTCJJJIkUEf R2t1i60DIF2LpzIb/6Ef4DtDWQ5snoxxw4lM8in2tHfECtHmDmnHryh8wfAxbxoBOCQOmUHhNrRtEFAY goESVCGyCe+Yt0ZpZGEyVCsaPjQJUCYOT8K1M0VTwjmlD4UrK0Nwjeii+C8bdg/P7YbnfFdn4YyrJz8P VapGYbLKiELWest1doTexYOpndxINTCgVAvZsx+aR/ PzHy0qZUMFhzPHYkAXjMRgfbGKNBWYRahHvzkSRHUsYeurlKNG9PNyWK0DVJiZ2dBquxFlRmcUSXAzFl EBlEJpFJJIkkkSJSQFC4+BsSHSPv5V3+YkrRXVlW2zJVXbX2IFNMwD0YkTWew4TuML5UdO8seR7T31Bc LbjtO8I1UMOmSU2EtX0c+VuY/C1M/hYmfwuTvwVUNb 4u+FuY/C1M/mPcjafTKse1ncGATq9avYSOTkOjvHCV6eQDJrGoxChbXv+YcMsw8l9TQRjF59XqfVnt23 yBy5Zmvbk1Eejjswb4KcOetBiyYb+VfEROGnKFt8HhCEy0IHikrJNdJDw7JHnjpTYiBQs3JUyzeFPnHJ g0EIman5Z/LogIESGiRJSIETEiTsSJBJEgMogMIpPI ABGHpgcPeE9AFcCaFOoBcM1X9GMDzJjZlas821BHU9YtQZZNGWSHdGJloNKYCOTDoWFCNQCLBGXuP5JA aIHPBmssqxP2iwZPEcvhozK8vmPLCvzABmx5rdghrTCJ8fIMKefcCEPH6YLOQcbvLKME4IJYPylvISSP 1WDAZqxbNZNS4OZBRdxaDOXU9RMMDcuq5FAS8nJESa mi9YWO0vgkeqkpuN+X7OX3Y6BK0ml6nO7JC4E35A9Pf7vmttRSPFFvMNXfNAFUVtJWuXmUL4IF9Y1OMe +rtoVAJ5FkBmtWZyVPEebxGHIzsexC/yJPVJtVYPFiCCmBDbMUVr8siHKNQ0COwRc2jIbuaCkI+onJbo h/D/zgBI/MGI2HP5gxh7KRRa0YSWajHcsttxHW2EKL 3JjyYsXeKp8yfLQ+eBw8a5ND/6RF/qc56h2mmr0Bq/xP2uR/0if/u9n7u8NB/6RV/pr69c6qww6Yg/xP 2uV/0i9/C3pdfiMoaUDRYrEeUU8VSyN6hz6aU1cGr881/3q20VgE2Nx/x56k7hz6JmI3v1/TG3h0yzya pdvnPxHh/+aTQPqzxT8n0uKq5P4OaRc39K995sVwCJ HqySPdRv/yfbbVl+Alee+vCmdqLR+Zy8wsQze8DqwA3WFt1tu17i5W0Iul62Z55fyvfUE1VjgQW/W0qvW [file] VgyhRtBjSTG8utPx2rGvVbTEMFJ5Uhp2XvWDSlTWNKXz4+VlM7PCB6aGTuLoo2LETjJErjXXRTRk== ID Date Data Source [id number] 04/03/2020 08:22:[address] [facility] Name Value Range Interpretation Code Description Data Lisa rce(s) Supporting Document(s) Glucose [Mass/volume] in Capillary blood by Glucometer 139 mg/dL 70- 140 [facility] ID Date Data Source [id number] 04/03/2020 04:00:24 AM [facility] Name Value Range Interpretation Code Description Data Lisa rce(s) Supporting Document(s) Leukocytes [#/volume] in Blood by Automated count 5.3 10*3/uL 4-10 [facility] Erythrocytes [#/volume] in Blood by Automated count 3.24 10*6/uL 4.6- 6.1 L [facility] Hemoglobin [Mass/volume] in Blood 10.3 g/dL 13.5-18 L [facility] Hematocrit [Volume Fraction] of Blood by Automated count 30.9 % 4 1-53 L [facility] Erythrocyte mean corpuscular volume [Entitic volume] by Auto mated count 95.1 fL 80-96 [facility] Erythrocyte mean corpuscular hemoglobin [Entitic mass] by Automated count 31.7 pg 27-33 [facility] Erythrocyte mean corpuscular hemoglobin concentration [Mass/volume] by Automated count 33.4 g/dL 32.0-[facility] width [Ratio] by Automated count 16.3 % 11.5-14.5 H [facility] Platelets [#/volume] in Blood by Automated count 229 10*3/uL 150-400 [facility] Differential cell count method - Blood [facility] Neutrophils/100 leukocytes in Blood by Automated count 62 % [facility] Lymphocytes/100 leukocytes in Blood by Automated count 27 % [facility] Monocytes/100 leukocytes in Blood by Automated count 8 % [facility] Eosinophils/100 leukocytes in Blood by Automated count 2 % [facility] Basophils/100 leukocytes in Blood by Automated count 1 % [facility] Neutrophils [#/volume] in Blood by Automated count 3.33 10*3/uL 1.8-7 .0 [facility] Lymphocytes [#/volume] in Blood by Automated count 1.42 10*3/uL 1.2-4 .0 [facility] Monocytes [#/volume] in Blood by Automated count 0.43 10*3/uL 0-0.8 [facility] Eosinophils [#/volume] in Blood by Automated count 0.09 10*3/uL 0-0.5 [facility] Basophils [#/volume] in Blood by Automated count 0.03 10*3/uL 0-0.2 [facility] Nucleated erythrocytes/100 leukocytes [Ratio] in Blood by Automated count 0 /100{WBCs} 0-0 [facility] ID Date Data Source [id number] 04/03/2020 04:20:19 AM [facility] Name Value Range Interpretation Code Description Data Lisa rce(s) Supporting Document(s) Bicarbonate [Moles/volume] in Serum 22 mmol/L 22-29 [facility] Chloride [Moles/volume] in Serum or Plasma 108 mmol/L 98-107 [facility] Creatinine [Mass/volume] in Serum or Plasma 0.94 mg/dL 0.70-1.20 [facility] Glucose [Mass/volume] in Serum or Plasma 123 mg/dL 70-140 [facility] Potassium [Moles/volume] in Serum or Plasma 4.4 mmol/L 3.4-5.1 [facility] Sodium [Moles/volume] in Serum or Plasma 139 mmol/L 136-145 [facility] Urea nitrogen [Mass/volume] in Serum or Plasma 19 mg/dL 8-23 [facility] Anion gap 3 in Serum or Plasma 9 mmol/L 8-15 [facility] Osmolality of Serum or Plasma by calculation 291 mosm/kg 275-300 [facility] Creatinine/Urea nitrogen [Mass Ratio] in Serum or Plasma 20 [facility] Calcium [Mass/volume] in Serum or Plasma 8.8 mg/dL 8.8-10.2 [facility] Glomerular filtration rate/1.73 sq M pre dicted among non-blacks [Volume Rate/Area] in Serum or Plasma by Creatinine-based formula (MDRD) >6 0 [facility] Glomerular filtration rate/1.73 sq M pre dicted among blacks [Volume Rate/Area] in Serum or Plasma by Creatinine-based formula (MDRD) >60 [facility] ID Date Data Source [id number] 04/03/2020 04:20:19 AM [facility] Name Value Range Interpretation Code Description Data Lisa rce(s) Supporting Document(s) Magnesium [Mass/volume] in Serum or Plasma 1.7 mg/dL 1.6-2.4 [facility] ID Date Data Source [id number] 04/03/2020 04:20:19 AM [facility] Name Value Range Interpretation Code Description Data Lisa rce(s) Supporting Document(s) Phosphate [Mass/volume] in Serum or Plasma 2.9 mg/dL 2.5-4.5 [facility] ID Date Data Source [id number] 04/03/2020 12:34:03 PM [facility] Name Value Range Interpretation Code Description Data Lisa rce(s) Supporting Document(s) Natriuretic peptide.B prohormone N-Terminal [Mass/volu me] in Serum or Plasma 1004 pg/mL <450 H [facility] ID Date Data Source [id number] 04/02/2020 08:54:21 PM [facility] Name Value Range Interpretation Code Description Data Lisa rce(s) Supporting Document(s) Glucose [Mass/volume] in Capillary blood by Glucometer 139 mg/dL 70- 140 [facility] ID Date Data Source [id number] 04/02/2020 05:08:37 PM [facility] Value Range Interpretation Code Description Data Lisa rce(s) Supporting Document(s) Glucose [Mass/volume] in Capillary blood by Glucometer 184 mg/dL 70- 140 H [facility] ID Date Data Source [id number] 04/02/2020 01:26:02 PM [facility] Value Range Interpretation Code Description Data Lisa rce(s) Supporting Document(s) Glucose [Mass/volume] in Capillary blood by Glucometer 142 mg/dL 70- 140 [facility] ID Date Data Source [id number] 04/02/2020 01:05:35 PM [facility] XR CHEST FRONTAL ONLY [id number] RESULTI nterpreted by:Otis Huntley, MDPROCEDURE INFORMATION: Exam: [...] Date Data Source [id number] 04/03/2020 06:08:02 PM [facility] Cmnt XXX-Imp : NoneMicroorganism XXX Cult : 2019 nCoV Real-Time RT-PCR: NOT DETECTEDThis test method was designed to detect the causative agent of COVID-19. The Dept. of Pathology [facility] has Emergency Use Authorization (EUA) from the FDA to peform this test to allow for rapid response during a declared public health emergency.Initial validation was performed by the Centers for Disease Control and Prevention (CDC) and additionally validated by the Dept. of Pathology [facility]. Negative results do not preclude SARS-CoV-2 infection and should not be used as the sole basis for patient management decisions.Additional information is available on the following FDA websites for health care providers and patients. https://www.fda.gov/media/362923/download, ht tps://www.fda.gov/media/257066/download. Name Value Range Interpretation Code Description Data Lisa rce(s) Supporting Document(s) ID Date Data Source [id number] 04/02/2020 12:56:00 PM [facility] Cmnt XXX-Imp : NoneMicroorganism XXX Cult : 2019 nCoV Real-Time RT-PCR: NOT DETECTEDThis test method was designed to detect the causative agent of COVID-19. The Dept. of Pathology [facility] has Emergency Use Authorization (EUA) from the FDA to peform this test to allow for rapid response during a declared public health emergency.Initial validation was performed by the Centers for Disease Control and Prevention (CDC) and additionally validated by the Dept. of Pathology [facility]. Negative results do not preclude SARS-CoV-2 infection and should not be used as the sole basis for patient management decisions.Additional information is available on the following FDA websites for health care providers and patients. https://www.fda.gov/media/141563/download, ht tps://www.fda.gov/media/265661/download. Name Value Range Interpretation Code Description Data Lisa rce(s) Supporting Document(s) Microorganism identified in Unspecified specimen by [facility] This lab was ordered by [facility] and reported by [facility]. ID Date Data Source [id number] 04/02/2020 01:28:56 PM [facility] Name Value Range Interpretation Code Description Data Lisa rce(s) Supporting Document(s) Hemoglobin A1c/Hemoglobin.total in Blood by HPLC 7.4 % 4.0-6.0 [facility] (NOTE)<5.7% Average risk of diabetes (ADA)5.7-6.4% Increased risk of diabetes(ADA)>/= 6.5% Diagnostic for diabetes(ADA) Glucose mean value [Mass/volume] in Blood Estimated fr om glycated hemoglobin 166 mg/dL <126 [facility] ID Date Data Source [id number] 04/02/2020 01:05:53 PM [facility] Name Value Range Interpretation Code Description Data Lisa rce(s) Supporting Document(s) Leukocytes [#/volume] in Blood by Automated count 5.0 10*3/uL 4-10 [facility] Erythrocytes [#/volume] in Blood by Automated count 3.28 10*6/uL 4.6- 6.1 L [facility] Hemoglobin [Mass/volume] in Blood 10.7 g/dL 13.5-18 [facility] Hematocrit [Volume Fraction] of Blood by Automated count 31.3 % 4 1-53 [facility] Erythrocyte mean corpuscular volume [Entitic volume] by Auto mated count 95.3 fL 80-96 [facility] Erythrocyte mean corpuscular hemoglobin [Entitic mass] by Automated count 32.5 pg 27-33 [facility] Erythrocyte mean corpuscular hemoglobin concentration [Mass/volume] by Automated count 34.1 g/dL 32.0-36.0 [facility] distribution width [Ratio] by Automated count 16.0 % 11.5-14.5 [facility] Platelets [#/volume] in Blood by Automated count 234 10*3/uL 150-400 [facility] ID Date Data Source [id number] 04/02/2020 01:21:14 PM [facility] Name Value Range Interpretation Code Description Data Lisa rce(s) Supporting Document(s) Heparin unfractionated [Units/volume] in Platelet poor plasma by Chromogenic method 0.38 U/ml [facility] ID Date Data Source [id number] 04/02/2020 01:21:14 PM [facility] Name Value Range Interpretation Code Description Data Lisa rce(s) Supporting Document(s) Prothrombin time (PT) 13.5 s 12.5-14.9 [facility] INR in Platelet poor plasma by Coagulation assay 1.02 [facility] Routine intensity oral anticoagulation I NR is typically 2.0-3.0. Target INR must be clinically individualized. ID Date Data Source [id number] 04/02/2020 12:27:45 PM [facility] Name Value Range Interpretation Code Description Data Lisa rce(s) Supporting Document(s) Glucose [Mass/volume] in Capillary blood by Glucometer 133 mg/dL 70- 140 [facility] ID Date Data Source [id number] 04/02/2020 10:55:48 AM [facility] IR FEMORAL ARTERIOGRAMFINAL RESULTInterp reted by:Shauna Cook [...] exchanged over a wire for a 5 Yi catheter. Multiple images of the right lower [...] Value Range Interpretation Code Description Data [facility] rce(s) Supporting Document(s) ID Date Data Source [id number] 04/02/2020 10:37:07 AM [facility] Name Value Range Interpretation Code Description [facility] Supporting Document(s) History and Physical [facility] HOVDRh1vKwNYDtRh88/JMHjrCXLci4WgECqeGNn1ZApuTTPsA3FkLPX9nL5sFRH0TZvCZoBsIaVtFcF1 lbm [file] AgICAgICAgICAgICAgICAgICAgICAgICAgICAgICAgICAgICAgICAgICAgICAgICAgICAgICAgICAgIA 0KICAgICAgICAgICAgICAgICAgICAgICAgICAgICAg ICAgICAgICAgICAgICAgICAgICAgICAgICAgICAgICAgICAgICAgICAgICAgICAgICAgICAgICAgICAg WBPlMGEvISLpPD2KNFHmICQyHRTeFDRdRKXrAYYeCUQiHIVwTWTzUBIvQQNfHYFjHPNxSDEiNDDzOUBd ICAgICAgICAgICAgICAgICAgICAgICAgICAgICAgIC FsVRThDESkONDsILCkGXKdCCApSY1RLEDaIGZrJQSvWEDxNLQuVJYwIEOmVHRwBRFlDSTsXXMwXWOmET AgICAgICAgICAgICAgICAgICAgICAgICAgICAgICAgICAgICAgICAgICAgICAgICAgICAgICAgICAgIC SeEC2LZPDzQKXaQSFoLGRqCAJnKNDmDGSnKQPbUOLc ICAgICAgICAgICAgICAgICAgICAgICAgICAgICAgICAgICAgICAgICAgICAgICAgICAgICAgICAgICAg VAJeSYWrYCQiPBEtOE7MTWOoRSMaNDZnFBQaCSExVJSkYRRdHEIwEXNpXQBbIBNlOISqYIFzJHCxQZUp ICAgICAgICAgICAgICAgICAgICAgICAgICAgICAgIC KfEBTgCBZwQQQtTGAmQLAzUWLsJAKsWK9VLUJqRDVpPGGrVCObFGVtPBTaQEPmRNXpNHVhBAPoVARwCV AgICAgICAgICAgICAgICAgICAgICAgICAgICAgICAgICAgICAgICAgICAgICAgICAgICAgICAgICAgIC IkBLWgAN5HWQOzOVOkMMLpCPMgCMXnQJBgSLTsRCPw ICAgICAgICAgICAgICAgICAgICAgICAgICAgICAgICAgICAgICAgICAgICAgICAgICAgICAgICAgICAg VMXpFEVlSUXhDPCpTTXhXK0QFXWoNBGkFQXlARRpQHKiNIRtYCBxJTBnGIGpCEIpHKFiCRLpICWyZSKx ICAgICAgICAgICAgICAgICAgICAgICAgICAgICAgIC YmARBzQECnGFBnJDNlTQNmQQOxDWIwUCVpSP8XNSAhZARaYHTnRHEjYNDbSADiDPMcVCSgMXAmWYInTY AgICAgICAgICAgICAgICAgICAgICAgICAgICAgICAgICAgICAgICAgICAgICAgICAgICAgICAgICAgIC TbFVRhOYErOL0CEL87mQZgl7L3EZZgEL9zsol/Pg0K FRxlhxBmqSLsYY4FOqXyPP6sev0BVzOiGA7uam8GKTgIHwSaN1T7uEHzNSUvMVACSnPqL94mJMvaZy85 RWjuJUPlVkXrGXk2De2TXbDjD9pyVVRhGvX1WTWcQhG3UDPzKkJ9MKZqNnEpXCoaWW6Rt6JdgJEcTLy+ Hf0HFP4pc1GqRUtnKHPqBR7gji7RNHsRTvCoX0Bukv W5OHCvEJGmMd4JLIRtUUHhxJLzLCMtSMXWDyTjQ3KsrA03BOHZKo4+IPfqwnSwPegPHtTmTXZvb9FfAV h3DI0CJBWyRFx5kBItGLMQZZH6JFA9esByufSBzDOjlYsiSMFwWALkYk3tRD9rSPZkVAO6EnKpPARIAF 9HMOVqRTVorHSuQSTrAHCXSN8FEWhiISH5SRNuuhUl zMTdOLejPK6WNYOtcbUjUwewKYHTMGf+Kc5MQH0ut7JuLHgeNWAbWD1awa5OBSpQZrRuZ2I2jFAhE8P7 NOakLf6TKJSrABQfKiuoASLLJRusHH1YNP8ckjN4EA6OwHBcECTdHXJpjCXeYWw1B48cqXOcUFtwYM2M ICA+Chintan+Ft8HFKGpHPTxYIQqXiMhRYOHVhAxQ1QyG2 HYl7CyG0XbAN62lGvtlcAyYOpdRE8LQD2aEGEiAIWWVI3AzZUtyD2zuiKjSCEvAJJARxTwY84bqXBfSI UwAUS4BZMuOm8QSTDdR4LiltAncPbymbVgJQNhJPTZBR0NSLhncjWrnFBwwIywSW44kUyzFC9ZIs1OVi XkUM0zmn0SzBKpIo3ACKZnEu2ADQCdJQQcPSUgKJM5 DLYhPcKrONqgMDDlLPFjDTX8NBDvAYMlTG0NYyToBPKyUyYuMljnURLuHTLdug2OTJApENShKyy8KWKs BLKcGRFzNFelSSPcEKXbQXK7GUChDFCsMC0ZDoTxPYWhJMQ7UuLdZHCxCWNnmt7CJFExWFHgMbc9EPJt FZWoHVTtGIrsHVWbTTR9EzD1VWUnYKLbEG8BAhRcOO ZaQNZ6OtDfFCXdYNRcdi6HBVBcZYRyNuAbEiGqYVEtVPLvZTfwXEEnQZH0PLNqHHNnAWUuYN5OCtEdNC XbSNk7NLUjWWPnWNOkfv4IZTQhEYHxKUQ2UfJpWAWrVHJcUQkvNWWyDPA2QWseHRRaHIGuTF3IScVcYZ TiWZs8IvisOOSfPBThhc5SRVVzCGQuSZD8ASGzDMMt JADtWYpdXJGxFOMdTuK5LOJcMQKpKY5QRzXhCDZkFVJrGNwmFEXbYNAugk3XNVTvEHUoFUX9FQQxDGMq VOGrMFqiDBMgLSBpRNr0HKEwGFSeOX1CRcLeGZKvNYL4DknyOBMsYNZers2JUKVnUQAvYcjxAGLsZEPq AVQjMBfxZCIlCMVvVYD6MXExEZCtMV1SGwDlZKXvOb TxEAJrEELoXSLtrl9NKHDvVIHvPFXdRLQrCIBaGRFeEXsjJQCyAHB2LTWjCRIfQSGsUB3IDeVnXGCbZe KyAnpaDTBoPBPnng6FLHWlIGFrSEYsMNFwVBQoLNZtPVwmFTXrKSD8XgR6UCNmQJXtKC1TIhMvNKIoNn opSIggQEIkFFGrpx1LYLRzZKXdQvD5FLVcXRWxLJUe PXbkMLXaRZK8HkB3SOXiVQXiIH7YDlSwKRigOJDTOrh0WUqsY2s1JCPmWs8AN3Obi9BmDtVdBBLGZEni AC7wvaToDPWgEe4LO1qIOch1DNw8QTv0O5XgNHQgUFM8MnVoFMQtRWpbJbSdJFz7IH3zNLg4TTcfBCFd VMEpYVDsCUrkCHAvCcK9VVZhHpE7QTQeLbZgTL1MZp7OVeO3XHP9pSThNb8HIcy8NIrOCqItPM8UCKr= ID Date Data Source [id number] 11/02/2019 12:00:00 AM EST eCW1 ([facility]) Name Value Range Interpretation Code Description Data Lisa rce(s) Supporting Document(s) Hemoglobin A1c/Hemoglobin.total in Blood 7.3 HEMOGLOBIN A1c W1 ([facility]) ID Date Data Source [id number] 11/02/2019 12:00:00 AM EST eCW1 ([facility]) Name Value Range Interpretation Code Description Data Lisa rce(s) Supporting Document(s) Microalbumin/Creatinine [Ratio] in Urine 55.6 0.0-30.0 SHALINI/CREAT RATIO eCW1 ([facility]) Albumin/Creatinine [Mass Ratio] in Urine 76.2 MALB URINE SIEMENS eCW1 ([facility]) Microalbumin/Creatinine [Mass Ratio] in Urine 137.0 CREATININE, URINE eCW1 ([facility]) Procedure Social History Code Duration Value Status Description Data Source(s ) Alcohol intake 11/18/2020 12:00:00 AM EST Not Currently completed [facility] Smoking 11/18/2020 12:00:00 AM EST Never smoker completed Never s moker [facility] Smoking 11/09/2020 12:00:00 AM EST Never Smoker completed Never S moker eCW1 ([facility]) Smoking 11/09/2020 12:00:00 AM EST Never Smoker completed Never S moker eCW1 ([facility]) Smoking 11/09/2020 12:00:00 AM EST Never Smoker completed Never S moker eCW1 ([facility]) Smoking 11/09/2020 12:00:00 AM EST Never Smoker completed Never S moker eCW1 ([facility]) Smoking 11/09/2020 12:00:00 AM EST Never Smoker completed Never S moker eCW1 ([facility]) Smoking 11/09/2020 12:00:00 AM EST Never Smoker completed Never S moker eCW1 ([facility]) Smoking 11/09/2020 12:00:00 AM EST Never Smoker completed Never S moker eCW1 ([facility]) Smoking 10/19/2020 12:00:00 AM EST Never Smoker completed Never S moker eCW1 ([facility]) Smoking 10/19/2020 12:00:00 AM EST Never Smoker completed Never S moker eCW1 ([facility]) Smoking 10/19/2020 12:00:00 AM EST Never Smoker completed Never S moker eCW1 ([facility]) Smoking 10/19/2020 12:00:00 AM EST Never Smoker completed Never S moker eCW1 ([facility]) Smoking 10/19/2020 12:00:00 AM EST Never Smoker completed Never S moker eCW1 ([facility]) Smoking 09/12/2020 12:00:00 AM EST Never Smoker completed Never S moker eCW1 ([facility]) Smoking 09/12/2020 12:00:00 AM EST Never Smoker completed Never S moker eCW1 ([facility]) Smoking 09/12/2020 12:00:00 AM EST Never Smoker completed Never S moker eCW1 ([facility]) Smoking 09/12/2020 12:00:00 AM EST Never Smoker completed Never S moker eCW1 ([facility]) Smoking 09/12/2020 12:00:00 AM EST Never Smoker completed Never S moker eCW1 ([facility]) Smoking 09/12/2020 12:00:00 AM EST Never Smoker completed Never S moker eCW1 ([facility]) Smoking 09/12/2020 12:00:00 AM EST Never Smoker completed Never S moker eCW1 ([facility]) Smoking 09/12/2020 12:00:00 AM EST Never Smoker completed Never S moker eCW1 ([facility]) Smoking 09/12/2020 12:00:00 AM EST Never Smoker completed Never S moker eCW1 ([facility]) Smoking 09/12/2020 12:00:00 AM EST Never Smoker completed Never S moker eCW1 ([facility]) Smoking 09/12/2020 12:00:00 AM EST Never Smoker completed Never S moker eCW1 ([facility]) Smoking 09/12/2020 12:00:00 AM EST Never Smoker completed Never S moker eCW1 ([facility]) Smoking 09/12/2020 12:00:00 AM EST Never Smoker completed Never S moker eCW1 ([facility]) Smoking 09/12/2020 12:00:00 AM EST Never Smoker completed Never S moker eCW1 ([facility]) Smoking 09/12/2020 12:00:00 AM EST Never Smoker completed Never S moker eCW1 ([facility]) Smoking 09/12/2020 12:00:00 AM EST Never Smoker completed Never S moker eCW1 ([facility]) Smoking 09/12/2020 12:00:00 AM EST Never Smoker completed Never S moker eCW1 ([facility]) Smoking 08/22/2020 12:00:00 AM EST Never Smoker completed Never S moker eCW1 ([facility]) Smoking 08/22/2020 12:00:00 AM EST Never Smoker completed Never S moker eCW1 ([facility]) Smoking 08/22/2020 12:00:00 AM EST Never Smoker completed Never S moker eCW1 ([facility]) Smoking 08/22/2020 12:00:00 AM EST Never Smoker completed Never S moker eCW1 ([facility]) Smoking 08/22/2020 12:00:00 AM EST Never Smoker completed Never S moker eCW1 ([facility]) Smoking 08/15/2020 12:00:00 AM EDT Never Smoker completed Never S moker eCW1 ([facility]) Smoking 08/15/2020 12:00:00 AM EDT Never Smoker completed Never S moker eCW1 ([facility]) Smoking 08/08/2020 12:00:00 AM EDT Never Smoker completed Never S moker eCW1 ([facility]) Smoking 08/08/2020 12:00:00 AM EDT Never Smoker completed Never S moker eCW1 ([facility]) Smoking 08/01/2020 12:00:00 AM EDT Never Smoker completed Never S moker eCW1 ([facility]) Smoking 08/01/2020 12:00:00 AM EDT Never Smoker completed Never S moker eCW1 ([facility]) Smoking 07/18/2020 12:00:00 AM EDT Never Smoker completed Never S moker eCW1 ([facility]) Alcohol intake 07/04/2020 12:00:00 AM EDT Ex-drinker (finding) comp leted Ex- drinker (finding) [facility] Tobacco use and exposure 07/04/2020 12:00:00 AM EDT Never used co mpleted Never used [facility] Smoking 07/04/2020 12:00:00 AM EDT Never smoker completed Never s [facility] Smoking 05/05/2020 12:00:00 AM EDT Never Smoker completed Never S moker eCW1 ([facility]) Smoking 05/05/2020 12:00:00 AM EDT Never Smoker completed Never S moker eCW1 ([facility]) Smoking 05/05/2020 12:00:00 AM EDT Never Smoker completed Never S moker eCW1 ([facility]) Alcohol intake 04/02/2020 12:00:00 AM EDT Ex-drinker (finding) comp leted Ex- drinker (finding) [facility] Smoking 04/02/2020 12:00:00 AM EDT Never smoker completed Never s [facility] Smoking 03/30/2020 12:00:00 AM EDT Never Smoker completed Never S moker eCW1 ([facility]) Smoking 03/30/2020 12:00:00 AM EDT Never Smoker completed Never S moker eCW1 ([facility]) Smoking 03/30/2020 12:00:00 AM EDT Never Smoker completed Never S moker eCW1 ([facility]) Smoking 03/23/2020 12:00:00 AM EDT Never Smoker completed Never S moker eCW1 ([facility]) Smoking 03/23/2020 12:00:00 AM EDT Never Smoker completed Never S moker eCW1 ([facility]) Smoking 03/23/2020 12:00:00 AM EDT Never Smoker completed Never S moker eCW1 ([facility]) Smoking 03/23/2020 12:00:00 AM EDT Never Smoker completed Never S moker eCW1 ([facility]) Smoking 03/23/2020 12:00:00 AM EDT Never Smoker completed Never S moker eCW1 ([facility]) Vital Signs ID Date Data Source UNK Name Value Range Interpretation Code Description Data Source(s) Oxygen saturation in Arterial blood by Pulse oximetry 98 % 98 % [facility] Body mass index (BMI) [Ratio] 24.41 kg/m2 24.41 kg/m2 [facility] Body weight 79.379 kg 79.379 kg [facility] Body height 180.3 cm 180.3 cm [facility] Heart rate 89 /min 89 /min [facility] Diastolic blood pressure 60 mm[Hg] 60 mm[Hg] [facility] Systolic blood pressure 112 mm[Hg] 112 mm[Hg] [facility] Body surface area Derived from formula 2.06 m2 2.06 m2 [facility] ([facility], ) Body weight 87.998 kg 87.998 kg [facility] ([facility], ) [place] body weight 166 [lb_av] 166 [lb_av] MEDEN T ([facility], ) Body mass index (BMI) [Ratio] 27.8 kg/m2 27.8 k g/m2 MEDISABEL ([facility], ) Body weight 194.00 [lb_av] 194.00 [lb_av] MEDEN T ([facility]) Body height 70 [in_i] 70 [in_i] [facility] ([facility]) 5'10" Diastolic blood pressure 70 mm[Hg] 70 mm[Hg] [facility] ([facility]) Systolic blood pressure 116 mm[Hg] 116 mm[Hg] [facility] ([facility]) Body surface area Derived from formula 2.07 m2 2.07 m2 [facility] ([facility]) Body weight 88.565 kg 88.565 kg [facility] ([facility]) [place] body weight 166 [lb_av] 166 [lb_av] MEDEN T ([facility]) Body mass index (BMI) [Ratio] 28.0 kg/m2 28.0 k g/m2 [facility] ([facility]) Body weight 195.25 [lb_av] 195.25 [lb_av] MEDEN T ([facility]) Body height 70 [in_i] 70 [in_i] [facility] ([facility]) 5'10" Diastolic blood pressure 60 mm[Hg] 60 mm[Hg] [facility] ([facility]) Systolic blood pressure 120 mm[Hg] 120 mm[Hg] [facility] ([facility]) Diastolic blood pressure 64 mm[Hg] 64 mm[Hg] eCW1 ([facility]) Systolic blood pressure 107 mm[Hg] 107 mm[Hg] e CW1 ([facility]) Body temperature 99.0 [degF] 99.0 [degF] eCW1 ( [facility]) Respiratory rate 20 /min 20 /min eCW1 ([facility]) Heart rate 113 /min 113 /min eCW1 ([facility]) Body mass index (BMI) [Ratio] 25.50 kg/m2 25.50 kg/m2 W1 ([facility]) Body height 70.25 [in_i] 70.25 [in_i] eCW1 ([facility]) Body weight 179 [lb_av] 179 [lb_av] eCW1 ([facility]) Body surface area Derived from formula 2.07 m2 2.07 m2 [facility] ([facility]) Body weight 88.906 kg 88.906 kg [facility] ([facility]) [place] body weight 166 [lb_av] 166 [lb_av] MEDEN T ([facility]) Body mass index (BMI) [Ratio] 28.1 kg/m2 28.1 k g/m2 [facility] ([facility]) Body weight 196.00 [lb_av] 196.00 [lb_av] [facility] Body height 70 [in_i] 70 [in_i] [facility] ([facility]) 5'10" Diastolic blood pressure 64 mm[Hg] 64 mm[Hg] [facility] ([facility]) Systolic blood pressure 94 mm[Hg] 94 mm[Hg] [facility] Diastolic blood pressure 77 mm[Hg] 77 mm[Hg] eCW1 ([facility]) Systolic blood pressure 124 mm[Hg] 124 mm[Hg] e CW1 ([facility]) Body temperature 98.1 [degF] 98.1 [degF] W1 ( [facility]) Respiratory rate 20 /min 20 /min eCW1 ([facility]) Heart rate 129 /min 129 /min W1 ([facility]) Body mass index (BMI) [Ratio] 25.50 kg/m2 25.50 kg/m2 W1 ([facility]) Body height 70.25 [in_i] 70.25 [in_i] eCW1 ([facility]) Body weight kg eCW1 ([facility]) Body weight 179 [lb_av] 179 [lb_av] eCW1 ([facility]) Diastolic blood pressure 64 mm[Hg] 64 mm[Hg] eCW1 ([facility]) Systolic blood pressure 139 mm[Hg] 139 mm[Hg] e CW1 ([facility]) Body temperature 98.4 [degF] 98.4 [degF] eCW1 ( [facility]) Respiratory rate 20 /min 20 /min eCW1 ([facility]) Heart rate 65 /min 65 /min eCW1 ([facility]) Body mass index (BMI) [Ratio] 27.78 kg/m2 27.78 kg/m2 eCW1 ([facility]) Body height 70.25 [in_i] 70.25 [in_i] eCW1 ([facility]) Body weight kg eCW1 ([facility]) Body weight 195 [lb_av] 195 [lb_av] eCW1 ([facility]) Diastolic blood pressure mm[Hg] eCW1 ([facility]) Systolic blood pressure 124 mm[Hg] 124 mm[Hg] e CW1 ([facility]) Body temperature 99.0 [degF] 99.0 [degF] eCW1 ( [facility]) Respiratory rate 18 /min 18 /min eCW1 ([facility]) Heart rate 76 /min 76 /min eCW1 ([facility]) Body mass index (BMI) [Ratio] 27.78 kg/m2 27.78 kg/m2 W1 ([facility]) Body height 70.25 [in_i] 70.25 [in_i] eCW1 ([facility]) Body weight 195 [lb_av] 195 [lb_av] eCW1 ([facility]) Diastolic blood pressure 78 mm[Hg] 78 mm[Hg] eCW1 ([facility]) Systolic blood pressure 124 mm[Hg] 124 mm[Hg] e CW1 ([facility]) Body temperature 98.5 [degF] 98.5 [degF] eCW1 ( [facility]) Respiratory rate 18 /min 18 /min eCW1 ([facility]) Heart rate 92 /min 92 /min eCW1 ([facility]) Body mass index (BMI) [Ratio] 28.21 kg/m2 28.21 kg/m2 eCW1 ([facility]) Body height 70.25 [in_i] 70.25 [in_i] eCW1 ([facility]) Body weight 198 [lb_av] 198 [lb_av] eCW1 ([facility]) Diastolic blood pressure 60 mm[Hg] 60 mm[Hg] eCW1 ([facility]) Systolic blood pressure 125 mm[Hg] 125 mm[Hg] e CW1 ([facility]) Body temperature 97.5 [degF] 97.5 [degF] eCW1 ( [facility]) Respiratory rate 20 /min 20 /min eCW1 ([facility]) Heart rate 66 /min 66 /min eCW1 ([facility]) Body mass index (BMI) [Ratio] 25.36 kg/m2 25.36 kg/m2 W1 ([facility]) Body height 70.25 [in_i] 70.25 [in_i] eCW1 ([facility]) Body weight kg eCW1 ([facility]) Body weight 178 [lb_av] 178 [lb_av] eCW1 ([facility]) Diastolic blood pressure 72 mm[Hg] 72 mm[Hg] eCW1 ([facility]) Systolic blood pressure 132 mm[Hg] 132 mm[Hg] e CW1 ([facility]) Body temperature 96.8 [degF] 96.8 [degF] eCW1 ( [facility]) Respiratory rate 18 /min 18 /min eCW1 ([facility]) Heart rate 80 /min 80 /min eCW1 ([facility]) Body mass index (BMI) [Ratio] 25.36 kg/m2 25.36 kg/m2 eCW1 ([facility]) Body height 70.25 [in_i] 70.25 [in_i] eCW1 ([facility]) Body weight 178 [lb_av] 178 [lb_av] eCW1 ([facility]) Diastolic blood pressure 68 mm[Hg] 68 mm[Hg] eCW1 ([facility]) Systolic blood pressure 124 mm[Hg] 124 mm[Hg] e CW1 ([facility]) Body temperature 98.7 [degF] 98.7 [degF] eCW1 ( [facility]) Respiratory rate 18 /min 18 /min eCW1 ([facility]) Heart rate 88 /min 88 /min eCW1 ([facility]) Body mass index (BMI) [Ratio] 25.36 kg/m2 25.36 kg/m2 eCW1 ([facility]) Body height 70.25 [in_i] 70.25 [in_i] eCW1 ([facility]) Body weight 178 [lb_av] 178 [lb_av] eCW1 ([facility]) Diastolic blood pressure 66 mm[Hg] 66 mm[Hg] eCW1 ([facility]) Systolic blood pressure 146 mm[Hg] 146 mm[Hg] e CW1 ([facility]) Body temperature 97.9 [degF] 97.9 [degF] eCW1 ( [facility]) Respiratory rate 20 /min 20 /min eCW1 ([facility]) Heart rate 73 /min 73 /min eCW1 ([facility]) Body mass index (BMI) [Ratio] 28.77 kg/m2 28.77 kg/m2 W1 ([facility]) Body height 70.25 [in_i] 70.25 [in_i] eCW1 ([facility]) Body weight kg eCW1 ([facility]) Body weight 202 [lb_av] 202 [lb_av] eCW1 ([facility]) Diastolic blood pressure 65 mm[Hg] 65 mm[Hg] eCW1 ([facility]) Systolic blood pressure 145 mm[Hg] 145 mm[Hg] e CW1 ([facility]) Body temperature 96.7 [degF] 96.7 [degF] eCW1 ( [facility]) Respiratory rate 20 /min 20 /min eCW1 ([facility]) Heart rate 85 /min 85 /min eCW1 ([facility]) Body mass index (BMI) [Ratio] 28.77 kg/m2 28.77 kg/m2 eCW1 ([facility]) Body height 70.25 [in_i] 70.25 [in_i] eCW1 ([facility]) Body weight kg eCW1 ([facility]) Body weight 202 [lb_av] 202 [lb_av] eCW1 ([facility]) Diastolic blood pressure 78 mm[Hg] 78 mm[Hg] eCW1 ([facility]) Systolic blood pressure 126 mm[Hg] 126 mm[Hg] e CW1 ([facility]) Body temperature 97.8 [degF] 97.8 [degF] eCW1 ( [facility]) Respiratory rate 20 /min 20 /min eCW1 ([facility]) Heart rate 80 /min 80 /min eCW1 ([facility]) Body mass index (BMI) [Ratio] 28.77 kg/m2 28.77 kg/m2 eCW1 ([facility]) Body height 70.25 [in_i] 70.25 [in_i] eCW1 ([facility]) Body weight kg eCW1 ([facility]) Body weight 202 [lb_av] 202 [lb_av] eCW1 ([facility]) Diastolic blood pressure 74 mm[Hg] 74 mm[Hg] eCW1 ([facility]) Systolic blood pressure 175 mm[Hg] 175 mm[Hg] e CW1 ([facility]) Body temperature 97.5 [degF] 97.5 [degF] eCW1 ( [facility]) Respiratory rate 19 /min 19 /min eCW1 ([facility]) Heart rate 66 /min 66 /min eCW1 ([facility]) Body mass index (BMI) [Ratio] 28.77 kg/m2 28.77 kg/m2 eCW1 ([facility]) Body height 70.25 [in_i] 70.25 [in_i] eCW1 ([facility]) Body weight kg eCW1 ([facility]) Body weight 202 [lb_av] 202 [lb_av] eCW1 ([facility]) Body mass index (BMI) [Ratio] 28.4 kg/m2 28.4 k g/m2 [facility] ([facility]) Body weight 204.00 [lb_av] 204.00 [lb_av] MEDEN T ([facility]) Body height 71 [in_i] 71 [in_i] [facility] ([facility] 5'11" Body temperature 96.0 [degF] 96.0 [degF] [facility] ([facility] Diastolic blood pressure 64 mm[Hg] 64 mm[Hg] eCW1 ([facility]) Systolic blood pressure 141 mm[Hg] 141 mm[Hg] e CW1 ([facility]) Body temperature 97.9 [degF] 97.9 [degF] eCW1 ( [facility]) Respiratory rate 18 /min 18 /min eCW1 ([facility]) Heart rate 70 /min 70 /min eCW1 ([facility]) Body mass index (BMI) [Ratio] 28.77 kg/m2 28.77 kg/m2 eCW1 ([facility]) Body height 70.25 [in_i] 70.25 [in_i] eCW1 ([facility]) Body weight kg eCW1 ([facility]) Body weight 202 [lb_av] 202 [lb_av] eCW1 ([facility]) Body mass index (BMI) [Ratio] 29.8 kg/m2 29.8 k g/m2 [facility] ([facility] Body weight 202.00 [lb_av] 202.00 [lb_av] MEDEN T ([facility]) Body height 69 [in_i] 69 [in_i] [facility] ([facility]) 5'9" Body temperature 97.4 [degF] 97.4 [degF] [facility] ([facility]) Diastolic blood pressure 59 mm[Hg] 59 mm[Hg] eCW1 ([facility]) Systolic blood pressure 126 mm[Hg] 126 mm[Hg] e CW1 ([facility]) Body temperature 98.6 [degF] 98.6 [degF] eCW1 ( [facility]) Respiratory rate 18 /min 18 /min eCW1 ([facility]) Heart rate 72 /min 72 /min eCW1 ([facility]) Body mass index (BMI) [Ratio] 28.77 kg/m2 28.77 kg/m2 eCW1 ([facility]) Body height 70.25 [in_i] 70.25 [in_i] eCW1 ([facility]) Body weight 202 [lb_av] 202 [lb_av] eCW1 ([facility]) Diastolic blood pressure 62 mm[Hg] 62 mm[Hg] eCW1 ([facility]) Systolic blood pressure 132 mm[Hg] 132 mm[Hg] e CW1 ([facility]) Body temperature 97.9 [degF] 97.9 [degF] eCW1 ( [facility]) Respiratory rate 18 /min 18 /min eCW1 ([facility]) Heart rate 75 /min 75 /min eCW1 ([facility]) Body mass index (BMI) [Ratio] 29.06 kg/m2 29.06 kg/m2 W1 ([facility]) Body height 70.25 [in_i] 70.25 [in_i] eCW1 ([facility]) Body weight kg eCW1 ([facility]) Body weight 204 [lb_av] 204 [lb_av] eCW1 ([facility]) Diastolic blood pressure 54 mm[Hg] 54 mm[Hg] eCW1 ([facility]) Systolic blood pressure 111 mm[Hg] 111 mm[Hg] e CW1 ([facility]) Body temperature 97.8 [degF] 97.8 [degF] eCW1 ( [facility]) Respiratory rate 18 /min 18 /min eCW1 ([facility]) Heart rate 65 /min 65 /min eCW1 ([facility]) Body mass index (BMI) [Ratio] 29.06 kg/m2 29.06 kg/m2 eCW1 ([facility]) Body height 70.25 [in_i] 70.25 [in_i] eCW1 ([facility]) Body weight kg eCW1 ([facility]) Body weight 204 [lb_av] 204 [lb_av] eCW1 ([facility]) Diastolic blood pressure 64 mm[Hg] 64 mm[Hg] eCW1 ([facility]) Systolic blood pressure 142 mm[Hg] 142 mm[Hg] e CW1 ([facility]) Body temperature 98.9 [degF] 98.9 [degF] eCW1 ( [facility]) Respiratory rate 20 /min 20 /min eCW1 ([facility]) Heart rate 57 /min 57 /min eCW1 ([facility]) Body mass index (BMI) [Ratio] 29.06 kg/m2 29.06 kg/m2 eCW1 ([facility]) Body height 70.25 [in_i] 70.25 [in_i] eCW1 ([facility]) Body weight kg eCW1 ([facility]) Body weight 204 [lb_av] 204 [lb_av] eCW1 ([facility]) Diastolic blood pressure 71 mm[Hg] 71 mm[Hg] eCW1 ([facility]) Systolic blood pressure 160 mm[Hg] 160 mm[Hg] e CW1 ([facility]) Body temperature 98.1 [degF] 98.1 [degF] eCW1 ( [facility]) Respiratory rate 20 /min 20 /min eCW1 ([facility]) Heart rate 65 /min 65 /min eCW1 ([facility]) Body mass index (BMI) [Ratio] 29.06 kg/m2 29.06 kg/m2 eCW1 ([facility]) Body height 70.25 [in_i] 70.25 [in_i] eCW1 ([facility]) Body weight kg eCW1 ([facility]) Body weight 204 [lb_av] 204 [lb_av] eCW1 ([facility]) Diastolic blood pressure 80 mm[Hg] 80 mm[Hg] eCW1 ([facility]) Systolic blood pressure 170 mm[Hg] 170 mm[Hg] e CW1 ([facility]) Body temperature 98.4 [degF] 98.4 [degF] eCW1 ( [facility]) Respiratory rate 18 /min 18 /min eCW1 ([facility]) Heart rate 68 /min 68 /min eCW1 ([facility]) Body mass index (BMI) [Ratio] 29.12 kg/m2 29.12 kg/m2 eCW1 ([facility]) Body height 70.25 [in_i] 70.25 [in_i] eCW1 ([facility]) Body weight 204.4 [lb_av] 204.4 [lb_av] eCW1 ([facility]) Diastolic blood pressure 75 mm[Hg] 75 mm[Hg] eCW1 ([facility]) Systolic blood pressure 172 mm[Hg] 172 mm[Hg] e CW1 ([facility]) Body temperature 98.0 [degF] 98.0 [degF] eCW1 ( [facility]) Respiratory rate 18 /min 18 /min eCW1 ([facility]) Heart rate 77 /min 77 /min eCW1 ([facility]) Body mass index (BMI) [Ratio] 29.74 kg/m2 29.74 kg/m2 eCW1 ([facility]) Body height 70.25 [in_us] 70.25 [in_us] eCW1 ([facility]) Body weight Measured 208.8 [lb_av] 208.8 [lb_av ] eCW1 ([facility]) Diastolic blood pressure 73 mm[Hg] 73 mm[Hg] eCW1 ([facility]) Systolic blood pressure 159 mm[Hg] 159 mm[Hg] e CW1 ([facility]) Body temperature 98.2 [degF] 98.2 [degF] eCW1 ( [facility]) Respiratory rate 18 /min 18 /min eCW1 ([facility]) Heart rate 76 /min 76 /min eCW1 ([facility]) Body mass index (BMI) [Ratio] 29.52 kg/m2 29.52 kg/m2 eCW1 ([facility]) Body height 70.25 [in_us] 70.25 [in_us] eCW1 ([facility]) Body weight Measured 207.2 [lb_av] 207.2 [lb_av ] eCW1 ([facility]) Diastolic blood pressure 88 mm[Hg] 88 mm[Hg] eCW1 ([facility]) Systolic blood pressure 159 mm[Hg] 159 mm[Hg] e CW1 ([facility]) Body temperature 98.8 [degF] 98.8 [degF] eCW1 ( [facility]) Respiratory rate 18 /min 18 /min eCW1 ([facility]) Heart rate 78 /min 78 /min eCW1 ([facility]) Body mass index (BMI) [Ratio] 28.92 kg/m2 28.92 kg/m2 W1 ([facility]) Body height 70.25 [in_us] 70.25 [in_us] eCW1 ([facility]) Body weight Measured 203 [lb_av] 203 [lb_av] eC W1 ([facility]) Diastolic blood pressure 93 mm[Hg] 93 mm[Hg] eCW1 ([facility]) Systolic blood pressure 189 mm[Hg] 189 mm[Hg] e CW1 ([facility]) Body temperature 97.6 [degF] 97.6 [degF] eCW1 ( [facility]) Respiratory rate 18 /min 18 /min eCW1 ([facility]) Heart rate 70 /min 70 /min eCW1 ([facility]) Body mass index (BMI) [Ratio] 28.97 kg/m2 28.97 kg/m2 eCW1 ([facility]) Body height 70.25 [in_us] 70.25 [in_us] eCW1 ([facility]) Body weight Measured 203.4 [lb_av] 203.4 [lb_av ] eCW1 ([facility]) Diastolic blood pressure 72 mm[Hg] 72 mm[Hg] eCW1 ([facility]) Systolic blood pressure 152 mm[Hg] 152 mm[Hg] e CW1 ([facility]) Body temperature 98.5 [degF] 98.5 [degF] eCW1 ( [facility]) Respiratory rate 16 /min 16 /min eCW1 ([facility]) Heart rate 72 /min 72 /min eCW1 ([facility]) Body mass index (BMI) [Ratio] 28.72 kg/m2 28.72 kg/m2 eCW1 ([facility]) Body height 70.25 [in_us] 70.25 [in_us] eCW1 ([facility]) Body weight Measured 201.6 [lb_av] 201.6 [lb_av ] eCW1 ([facility]) Diastolic blood pressure 80 mm[Hg] 80 mm[Hg] eCW1 ([facility]) Systolic blood pressure 176 mm[Hg] 176 mm[Hg] e CW1 ([facility]) Body temperature 97.7 [degF] 97.7 [degF] eCW1 ( [facility]) Respiratory rate 18 /min 18 /min eCW1 ([facility]) Heart rate 61 /min 61 /min eCW1 ([facility]) Body mass index (BMI) [Ratio] 29.20 kg/m2 29.20 kg/m2 eCW1 ([facility]) Body height 70.25 [in_us] 70.25 [in_us] eCW1 ([facility]) Body weight Measured 205 [lb_av] 205 [lb_av] eC W1 ([facility]) ID Date Data Source [id number] 07/17/2020 11:12:55 AM EDT [facility] Name Value Range Interpretation Code Description Data Source(s) Body height Measured 70.98 in 70.98 in [facility] WEIGHT RECORDED 199 lb 199 lb [facility] TRANSFER FROM [facility] ID Date Data Source [id number] 04/14/2020 02:56:31 PM EDT [facility] Name Value Range Interpretation Code Description Data Source(s) WEIGHT RECORDED 198.41 lb 198.41 lb [facility] Body height Measured 71 in 71 in [facility] Patient Treatment Plan of Care Planned Activity Planned Date Details Description Data Source (s) atorvastatin 40 MG Oral Tablet 11/15/2020 12:00:00 AM EST [facility] duloxetine 30 MG Delayed Release Oral Capsule 11/15/2020 12:00:00 A M EST [facility] Sucralfate 1000 MG Oral Tablet 11/15/2020 12:00:00 AM EST [facility] Linagliptin 5 MG Oral Tablet [Tradjenta] 11/02/2020 12:00:00 AM EST eCW1 ([facility]) Linagliptin 5 MG Oral Tablet [Tradjenta] 11/02/2020 12:00:00 AM EST eCW1 ([facility]) Linagliptin 5 MG Oral Tablet [Tradjenta] 11/02/2020 12:00:00 AM EST [facility] Linagliptin 5 MG Oral Tablet [Tradjenta] 11/02/2020 12:00:00 AM EST eCW1 ([facility]) Linagliptin 5 MG Oral Tablet [Tradjenta] 11/02/2020 12:00:00 AM EST eCW1 ([facility]) Linagliptin 5 MG Oral Tablet [Tradjenta] 11/02/2020 12:00:00 AM EST eCW1 ([facility]) Linagliptin 5 MG Oral Tablet [Tradjenta] 11/02/2020 12:00:00 AM EST eCW1 ([facility]) Linagliptin 5 MG Oral Tablet [Tradjenta] 11/02/2020 12:00:00 AM EST eCW1 ([facility]) Linagliptin 5 MG Oral Tablet [Tradjenta] 11/02/2020 12:00:00 AM EST eCW1 ([facility]) Linagliptin 5 MG Oral Tablet [Tradjenta] 11/02/2020 12:00:00 AM EST eCW1 ([facility]) Aspirin 81 MG Delayed Release Oral Tablet 10/10/2020 12:00:00 AM ES [facility] ferrous sulfate 325 MG Oral Tablet 10/10/2020 12:00:00 AM EST [facility] tramadol hydrochloride 50 MG Oral Tablet 09/19/2020 12:00:00 AM EST [facility] Tramadol HCl 100 MG 09/19/2020 12:00:00 AM EST eCW1 ([facility]) Tramadol HCl 100 MG 09/19/2020 12:00:00 AM EST eCW1 ([facility]) Tramadol HCl 100 MG 09/19/2020 12:00:00 AM EST eCW1 ([facility]) Tramadol HCl 100 MG 09/19/2020 12:00:00 AM EST eCW1 ([facility]) Tramadol HCl 100 MG 09/19/2020 12:00:00 AM EST eCW1 ([facility]) Tramadol HCl 100 MG 09/19/2020 12:00:00 AM EST eCW1 ([facility]) Tramadol HCl 100 MG 09/19/2020 12:00:00 AM EST eCW1 ([facility]) Tramadol HCl 100 MG 09/19/2020 12:00:00 AM EST eCW1 ([facility]) Tramadol HCl 100 MG 09/19/2020 12:00:00 AM EST eCW1 ([facility]) Tramadol HCl 100 MG 09/19/2020 12:00:00 AM EST eCW1 ([facility]) Tramadol HCl 100 MG 09/19/2020 12:00:00 AM EST eCW1 ([facility]) Tramadol HCl 100 MG 09/19/2020 12:00:00 AM EST eCW1 ([facility]) Tramadol HCl 100 MG 09/19/2020 12:00:00 AM EST eCW1 ([facility]) Tramadol HCl 100 MG 09/19/2020 12:00:00 AM EST eCW1 ([facility]) Tramadol HCl 100 MG 09/19/2020 12:00:00 AM EST eCW1 ([facility]) Escitalopram 5 MG Oral Tablet 09/12/2020 12:00:00 AM EST eCW1 ([facility]) Escitalopram 5 MG Oral Tablet 09/12/2020 12:00:00 AM EST eCW1 ([facility]) apixaban 5 MG Oral Tablet [Eliquis] 08/28/2020 12:00:00 AM EST eCW1 ([facility]) doxycycline hyclate 100 MG Oral Tablet 08/28/2020 12:00:00 AM EST eCW1 ([facility]) apixaban 5 MG Oral Tablet [Eliquis] 08/28/2020 12:00:00 AM EST eCW1 ([facility]) doxycycline hyclate 100 MG Oral Tablet 08/28/2020 12:00:00 AM EST eCW1 ([facility]) apixaban 5 MG Oral Tablet [Eliquis] 08/28/2020 12:00:00 AM EST eCW1 ([facility]) doxycycline hyclate 100 MG Oral Tablet 08/28/2020 12:00:00 AM EST eCW1 ([facility]) apixaban 5 MG Oral Tablet [Eliquis] 08/28/2020 12:00:00 AM EST eCW1 ([facility]) doxycycline hyclate 100 MG Oral Tablet 08/28/2020 12:00:00 AM EST eCW1 ([facility]) Lisinopril 10 MG Oral Tablet 07/07/2020 12:00:00 AM [facility] Ibuprofen 400 MG Oral Tablet 07/04/2020 09:38:31 PM [facility] dextrose 50 % IV solution 25 mL 07/04/2020 09:29:30 PM [facility] Glucagon 1 MG Injection 07/04/2020 09:29:30 PM [facility] Glucose 0.417 MG/MG Oral Gel 07/04/2020 09:29:30 PM [facility] oxyCODONE (ROXICODONE) immediate release tablet 5 mg 020 09:23:50 PM [facility] Silver-Carboxymethylcellulose (AQUACEL-AG HYDROFIBER 3 /4"X18") 3/4"X18" MISC 06/20/2020 12:00:[address] [facility] Aquacel-Ag Hydrofiber 3/4"X18" External 06/20/2020 12:00:00 AM [facility] gabapentin 100 MG Oral Capsule 06/20/2020 12:00:00 AM [facility] Magnesium Oxide 400 MG Oral Tablet 04/12/2020 12:00:[address] [facility] pantoprazole 40 MG Delayed Release Oral Tablet 04/12/2020 12:00:[address] [facility] Tamsulosin hydrochloride 0.4 MG Oral Capsule 04/12/2020 12:00:[address] [facility] Tamsulosin hydrochloride 0.4 MG Oral Capsule 04/12/2020 12:00:00 AM [facility] pantoprazole 40 MG Delayed Release Oral Tablet 04/12/2020 12:00:00 AM [facility] Magnesium Oxide 400 MG Oral Tablet 04/12/2020 12:00:00 AM [facility] Lisinopril 10 MG Oral Tablet 04/12/2020 12:00:00 AM [facility] [place] 8.6 MG Oral Tablet 04/11/2020 12:00:[address] [facility] [place] 8.6 MG Oral Tablet 04/11/2020 12:00:00 AM [facility] Rivaroxaban 2.5 MG Oral Tablet (XARELTO) 04/11/2020 12:00:00 AM [facility] Oxycodone Hydrochloride 5 MG Oral Tablet 04/11/2020 12:00:00 AM [facility] Docusate Sodium 100 MG Oral Capsule 04/11/2020 12:00:00 AM [facility] Bisacodyl 10 MG Rectal Suppository 04/11/2020 12:00:00 AM [facility] gabapentin 100 MG Oral Capsule 04/11/2020 12:00:00 AM [facility] pantoprazole (PROTONIX) injection 40 mg 04/03/2020 07:30:00 AM [facility] dextrose 50 % IV solution 25 mL 04/02/2020 12:06:19 PM [facility] Glucagon 1 MG Injection 04/02/2020 12:06:19 PM [facility] Glucose 0.417 MG/MG Oral Gel 04/02/2020 12:06:19 PM [facility] Lisinopril 5 MG Oral Tablet 03/17/2020 12:00:00 AM EDT [facility] ([facility]) gabapentin 300 MG Oral Capsule 02/29/2020 12:00:00 AM EDT [facility] ([facility]) gabapentin 300 MG Oral Capsule 02/29/2020 12:00:00 AM EDT [facility] ([facility]) Cephalexin 500 MG Oral Capsule 02/22/2020 12:00:00 AM EDT eC ([facility]) Metformin hydrochloride 500 MG Oral Tablet 10/22/2019 12:00:[address] [facility] Glipizide 5 MG Oral Tablet 09/21/2019 12:00:00 AM EST [facility] glucose blood (ACCU-CHEK VAHE) test strip 03/01/2015 12:00:00 AM E [facility] Lisinopril 5 MG Oral Tablet [facility] gabapentin 300 MG Oral Capsule [facility]
[2020-12-05] MEDS ORDERED: DEXTROSE 50% 50 ML SYRINGE IV PRN (20:45)
[2020-12-05] MEDS ORDERED: GLUCOSE 4GM CHEW TABLET PO PRN (20:45)
[2020-12-05] MEDS ORDERED: GLUCAGON INJ 1MG VIAL SC PRN (20:45)
[2020-12-05 21:21] VITALS: BP 155/88
[2020-12-05 22:07] LABS: IRON (FE) 30 UG/DL (65-175); LDH LACTATE DEHYDROGENASE 220 U/L (87-241); PERCENT SATURATION 9.8 % (19.7-50.0); TOTAL IRON BINDING CAPACITY 306 UG/DL (250-450); VITAMIN B12 LEVEL 512 PG/ML (247-911)
[2020-12-05 22:15] VITALS: BP 134/78
[2020-12-05] MEDS: HumaLOG INSULIN (NovoLOG) PER UNIT SC SCH (22:15)
[2020-12-05 23:10] VITALS: BP 129/75
--- NOTE | 2020-12-05 23:10 | HPEPDOC ---
General Date of Admission Dec 05, 2020 at 20:33 Date of Service: Dec 05, 2020 Chief Complaint The patient is a 85-year-old male admitted with a reason for visit of Anemia. Source: Patient History of Present Illness Mr. Canada is an 85 year old male with atrial fibrillation on Eliquis who presents with acute anemia. Last week, patient had noticed light red blood in toilet bowel. His stools were also dark, but he thought it was secondary to iron. Denies any lightheadedness, but he does have some blurry vision when he stands. He tells me that he had a colonoscopy about 3 to 4 years ago. He was actually scheduled for another colonoscopy tomorrow with Dr. De La Cruz and he was supposed to drink the bowel prep this evening. Patient denies any NSAID use. When patient's blood work was check, his hemoglobin was 6.3. Patient was admitted for severe acute anemia. Home Medications Scheduled Apixaban (Eliquis) 5 Mg Tablet, 5 MG PO BID, (Reported) Aspirin (Ecotrin) 81 Mg Tablet.dr, 81 MG PO QHS, (Reported) Atorvastatin Calcium (Atorvastatin Calcium) 40 Mg Tablet, 40 MG PO DAILY, (Reported) Duloxetine Hcl (Duloxetine HCl) 30 Mg Capsule.dr, 30 MG PO QHS, (Reported) Ferrous Sulfate (Ferrous Sulfate) 325 Mg Tablet.dr, 325 MG PO DAILY, (Reported) Glipizide (Glipizide) 5 Mg Tablet, 5 MG PO QHS, (Reported) Glipizide (Glipizide) 5 Mg Tablet, 7.5 MG PO QAM, (Reported) Linagliptin (Tradjenta) 5 Mg Tablet, 5 MG PO DAILY, (Reported) Metoprolol Tartrate (Metoprolol Tartrate) 50 Mg Tablet, 50 MG PO BID, (Reported) Pantoprazole Sodium (Pantoprazole Sodium) 40 Mg Tablet.dr, 40 MG PO DAILY, (Reported) Sucralfate (Sucralfate) 1 Gm Tablet, 1 GM PO QHS, (Reported) Tamsulosin HCl (Flomax) 0.4 Mg Capsule, 0.4 MG PO DAILY, (Reported) Allergies Coded Allergies: No Known Allergies (Unverified , 04/01/20) Past Medical History Medical History 1. Hypertension 2. Diabetes mellitus 3. Hiatal hernia 4. CAD 5. A fib 6. Ulnar nerve transplants 7. Kidney stones 8. Actinic keratosis 9. Anemia 10. Lumbar spondylosis with right sided motor weakness Surgical History 1. Back surgery 2. Right knee replacement 3. Toes straightened 4. Bilateral carpel tunnel surgery 5. Heart bypass surgery 6. Nerve in right elbow 7. Ureteroscopy/laser lithotripsy 8. Angioplasty 9. Right lower leg amputation Family History Father: DM Mother: Pacemaker placed Social History * Smoker: Denies Alcohol: Denies Drugs: denies A-FIB/CHADSVASC A-FIB History Current/History of A-Fib/PAF?: Yes Current PO Anticoag Therapy: Yes Review of Systems Constitutional: Denies: Chills Eyes: Reports: Vision change (blurry vision when stands) ENT: Denies: Sore Throat Skin: Denies: Rash Pulmonary: Reports: Cough (Produces phlem which has been chronic); Denies: Dyspnea Cardiovascular: Denies: Chest Pain Gastrointestinal: Denies: Nausea, Abdominal Pain Genitourinary: Denies: Dysuria Hematologic: Denies: Bruising Neurological: Reports: Other Symptoms (paresthesias on side of hand that comes and goes) Psych: Denies: Anxiety Physical Examination General Exam: Positive: Alert, Cooperative Eye Exam: Positive: EOMI; Negative: Sclera icteric ENT Exam: Positive: Atraumatic Neck Exam: Positive: Supple Chest Exam: Positive: Clear to auscultation; Negative: Rales, Rhonchi, Wheezing Heart Exam: Positive: Rate Normal, Irregular Rhythm Abdomen Exam: Positive: Normal bowel sounds, Soft; Negative: Tenderness Neuro Exam: Positive: Cranial Nerves 3-12 NL Psych Exam: Positive: Mental status NL, Mood NL Vital Signs Vital Signs Date Time Temp Pulse Resp B/P (MAP) Pulse Ox O2 Delivery O2 Flow Rate FiO2 12/05/20 22:15 96.9 97 20 134/78 (96) 97 Room Air 97 Laboratory Data Labs 24H Laboratory Tests 2 12/05/20 18:10: Immature Granulocyte % (Auto) , Neutrophils (%) (Auto) , Reticulocyte # (auto) 75.0, Nucleated Red Blood Cells % (auto) 0.0, Neutrophils 65, Lymphocytes (Manual) 31, Monocytes (Manual) 4, Hypochromasia 2+, Anisocytosis 1+, Platelet Estimate NORMAL, Percent Reticulocyte Count 3.5H, Reticulocyte Hemoglobin Equivalent 24.3, Prothrombin Time 15.9H, Prothromb Time International Ratio 1.24, Anion Gap 8, Glomerular Filtration Rate > 60.0, Calcium Level 8.8, Iron Level 30L, Total Iron Binding Capacity 306, Transferrin % Saturation 9.8L, Lactate Dehydrogenase 220, Vitamin B12 Level 512 12/05/20 18:46: Coronavirus (COVID-19)(PCR) NEGATIVE, Influenza Type A (RT-PCR) NEGATIVE, Influenza Type B (RT-PCR) NEGATIVE, Respiratory Syncytial Virus (PCR) NEGATIVE 12/05/20 22:32: Bedside Glucose (Misc Panel) 97 CBC/BMP Laboratory Tests 12/05/20 18:10 Assessment/Plan Mr. Canada is an 85 year old male with atrial fibrillation on Eliquis who presents with acute anemia. Most likely blood loss anemia from Eliquis. Eliquis will be held and patient will be transfused with 2u pRBC Plan / VTE VTE Prophylaxis Ordered?: Yes Plan Plan 1. Acute anemia -Most likely blood loss of Eliquis -Hold Eliquis and transfuse 2u pRBC -IV protonix BID and Carafate -Continue iron -NPO except for meds 2. Atrial fibrillation -Continue metoprolol -Hold Apixaban 3. DM -Insulin sliding scale 4. Depression/Anxiety -Continue Duloxetine 5. Dyslipidemia -Atorvastatin 6. DVT ppx -SCD and TEDs JOHNNY ALVA DO Dec 05, 2020 23:10
[2020-12-05 23:25] VITALS: BP 129/77
[2020-12-05] MEDS: SUCRALFATE 1 GM TAB PO SCH (23:38)
[2020-12-05] MEDS: METOPROLOL TART 50 MG TAB PO SCH (23:38)
[2020-12-05] MEDS: DULoxetine 30 MG CAP (CYMBALTA) PO SCH (23:38)
[2020-12-05] MEDS: PANTOPRAZOLE 40MG VIAL (C9113 PER 1) IV SCH (23:38)
[2020-12-06] VITALS (7 sets, daily range): BP systolic 102–131; BP diastolic 63–89
[2020-12-06] MEDS: HumaLOG INSULIN (NovoLOG) PER UNIT SC SCH ×4 (02:45→20:45)
[2020-12-06 02:46] LABS: HEMATOCRIT 28.2 % (42.0-52.0)
[2020-12-06 02:50] LABS: HEMOGLOBIN 8.4 g/dl (13.5-17.5)
[2020-12-06 06:48] LABS: HEMOGLOBIN 8.5 g/dl (13.5-17.5); MEAN CORPUSCULAR HEMOGLOBIN 29.5 pg (27.0-33.0); MEAN CORPUSCULAR HGB CONC 30.4 g/dl (32.0-36.5); MEAN CORPUSCULAR VOLUME 97.2 fl (80.0-96.0); PLATELET COUNT, AUTOMATED 268 10^3/uL (150-450); RED BLOOD COUNT 2.88 10^6/uL (4.30-6.10); WHITE BLOOD COUNT 5.3 10^3/uL (4.0-10.0)
[2020-12-06 07:16] LABS: BLOOD UREA NITROGEN 25 MG/DL (7-18); CALCIUM LEVEL 8.4 MG/DL (8.8-10.2); CARBON DIOXIDE LEVEL 27 MEQ/L (21-32); CHLORIDE LEVEL 106 MEQ/L (98-107); CREATININE FOR GFR 1.08 MG/DL (0.70-1.30); GLOMERULAR FILTRATION RATE > 60.0 (>35); GLUCOSE, FASTING 128 MG/DL (70-100); POTASSIUM SERUM 4.6 MEQ/L (3.5-5.1); SODIUM LEVEL 140 MEQ/L (136-145)
[2020-12-06] MEDS: PANTOPRAZOLE 40MG VIAL (C9113 PER 1) IV SCH ×2 (08:55→22:16)
[2020-12-06] MEDS: FERROUS SULFATE 325MG TAB PO SCH (08:55)
[2020-12-06] MEDS: ATORVASTATIN 20 MG TAB PO SCH (08:55)
[2020-12-06] MEDS: TAMSULOSIN 0.4 MG CAP PO SCH (08:55)
[2020-12-06] MEDS: METOPROLOL TART 50 MG TAB PO SCH ×2 (08:57→23:33)
[2020-12-06] MEDS ORDERED: BISACODYL 5 MG TAB PO ONE (15:00)
[2020-12-06] MEDS ORDERED: NULYTELY SOLN 4000ML BTL PO ONE (15:00)
--- NOTE | 2020-12-06 15:31 | IPNPDOC ---
Text Note Date of Service The patient was seen on 12/06/20. NOTE Subjective: No any acute events overnight. Patient denied fever, chills, nausea, chest pain, palpitations] Objective: GENERAL APPEARANCE: NAD HEENT: no scleral icterus, no JVD, EOMI CARDIOVASCULAR: S1S2 LUNGS: CTA ABDOMEN: soft & not tender w palpitation MUSCULOSKELETAL: no cyanosis, no swelling INTEGUMENT: no generalized pallor NEUROLOGICAL: cranial nerve function from 2-12 intact intact, follows commands, speech not dysarthric Assessment/Plan Mr. Canada is an 85 year old male with atrial fibrillation on Eliquis who presents with acute anemia. Most likely blood loss anemia from Eliquis. Eliquis will be held and patient will be transfused with 2u pRBC Plan 1. Acute anemia Secondary to GI bleed superimposed with oral targets anticoagulation Patient received blood transfusion 2 units, hemoglobin stable Appreciate/agree with surgical team continue protonix BID and Carafate H&H every 6 hours 2. Atrial fibrillation -Continue metoprolol -Hold Apixaban 3. DM -Insulin sliding scale 4. Depression/Anxiety -Continue Duloxetine 5. Dyslipidemia -Atorvastatin 6. DVT ppx -SCD and TEDs VS,Fishbone, I+O VS, Fishbone, I+O Laboratory Tests 12/05/20 18:10 12/06/20 02:41 12/06/20 06:04 Vital Signs Date Time Temp Pulse Resp B/P (MAP) Pulse Ox O2 Delivery O2 Flow Rate FiO2 12/06/20 14:00 97.5 78 18 118/78 (91) 98 Room Air 12/05/20 22:15 97 I&O- Last 24 Hours up to 6 AM 12/06/20 06:00 Intake Total 800 ml Output Total 650 ml Balance 150 ml ERAN NETTLES DO Dec 06, 2020 15:31
[2020-12-06 15:58] LABS: HEMATOCRIT 28.9 % (42.0-52.0); HEMOGLOBIN 8.7 g/dl (13.5-17.5)
[2020-12-06 22:14] LABS: HEMATOCRIT 29.8 % (42.0-52.0); HEMOGLOBIN 8.8 g/dl (13.5-17.5)
[2020-12-06] MEDS: DULoxetine 30 MG CAP (CYMBALTA) PO SCH (22:16)
[2020-12-06] MEDS: SUCRALFATE 1 GM TAB PO SCH (22:16)
[2020-12-07] MEDS: HumaLOG INSULIN (NovoLOG) PER UNIT SC SCH ×4 (02:12→17:52)
[2020-12-07 05:59] LABS: HEMATOCRIT 28.3 % (42.0-52.0); HEMOGLOBIN 8.5 g/dl (13.5-17.5); MEAN CORPUSCULAR HEMOGLOBIN 29.7 pg (27.0-33.0); PLATELET COUNT, AUTOMATED 267 10^3/uL (150-450); RED BLOOD COUNT 2.86 10^6/uL (4.30-6.10); WHITE BLOOD COUNT 5.2 10^3/uL (4.0-10.0)
[2020-12-07 06:00] VITALS: BP 125/74
[2020-12-07 06:20] LABS: BLOOD UREA NITROGEN 16 MG/DL (7-18); CALCIUM LEVEL 8.1 MG/DL (8.8-10.2); CARBON DIOXIDE LEVEL 27 MEQ/L (21-32); CHLORIDE LEVEL 109 MEQ/L (98-107); GLOMERULAR FILTRATION RATE > 60.0 (>35); GLUCOSE, FASTING 117 MG/DL (70-100); POTASSIUM SERUM 4.1 MEQ/L (3.5-5.1); SODIUM LEVEL 143 MEQ/L (136-145)
[2020-12-07] MEDS: PANTOPRAZOLE 40MG VIAL (C9113 PER 1) IV SCH ×2 (08:14→21:10)
[2020-12-07] MEDS: METOPROLOL TART 50 MG TAB PO SCH ×2 (08:16→21:11)
[2020-12-07 10:29] LABS: HEMATOCRIT 27.6 % (42.0-52.0); HEMOGLOBIN 8.3 g/dl (13.5-17.5)
--- NOTE | 2020-12-07 11:10 | CR ---
CONSULTATION DATE: 12/07/2020 REASON FOR CONSULTATION: Gastrointestinal bleeding. HISTORY OF PRESENT ILLNESS: The patient is an 85-year-old man with multiple medical problems including atrial fibrillation for which he is treated with Eliquis. He was seen in the General Surgery office on the 16 of November to arrange upper and lower endoscopies because of a recent positive fecal occult blood test. His most recent endoscopic examinations have been in 2016. The patient was scheduled for the 06 of December but he presented to the Emergency Department on the evening of the . He apparently had been in to see his primary care provider on the and blood work was done. He was called and told to report to the Emergency Department because of a hemoglobin of 6.7. After he was seen in the Emergency Department, he was admitted by the Hospitalist Service for management. He has received 2 units of packed red blood cells and his Eliquis is currently on hold. I am now consulted to consider continuing with the upper and lower endoscopies during his hospital stay. ALLERGIES: The patient has no reported drug allergies. HOME MEDICATIONS: 1. Eliquis 5 mg twice daily. 2. Aspirin 81 mg p.o. q. h.s. 3. Atorvastatin 40 mg p.o. daily. 4. Duloxetine 30 mg p.o. q. h.s. 5. Ferrous Sulfate 325 mg p.o. daily. 6. Glipizide 5 mg p.o. q. h.s. 7. Glipizide 7.5 mg p.o. a.m. 8. Tradjenta 5 mg p.o. daily. 9. Metoprolol Tartrate 50 mg p.o. twice daily. 10. Pantoprazole 40 mg p.o. daily. 11. Carafate one gram p.o. q. h.s. 12. Tamsulosin 0.4 mg p.o. daily. PAST SURGICAL HISTORY: The patient's past surgical history is significant for : 1. Prior back surgery. 2. Right total knee replacement. 3. He underwent bilateral carpal tunnel surgery. 4. He has had a coronary artery bypass grafting done in about 2010. 5. 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 PAST MEDICAL HISTORY: The patient's past medical history is significant for: 1. Hypertension. 2. Diabetes mellitus. 3. Coronary artery disease and is status post bypass. 4. Atrial fibrillation which his chronic and treated with anticoagulation. 5. History of kidney stones. FAMILY HISTORY: Father had diabetes and his mother had heart disease. SOCIAL HISTORY: The patient denies any current smoking or significant alcohol intake. REVIEW OF SYSTEMS: The patient's review of systems revealed no history of chest pain. He denies shortness of breath, cough or wheezing currently. He is having no abdominal pain and denies any dysuria or hematuria. PHYSICAL EXAMINATION: GENERAL APPEARANCE: A pleasant elderly man in no obvious distress. He is alert and appears fairly comfortable currently. He is perhaps slightly pale. SKIN: Warm and dry. HEENT: Sclerae are anicteric. NECK: Supple. HEART: Irregular rhythm. LUNGS: Clear bilaterally. ABDOMEN: Soft and nontender without appreciable mass. LABORATORY STUDIES: Today white count of 5, hemoglobin 8, hematocrit 28 and a platelet count of 267,000. Chemistry profile shows normal electrolytes with the exception of a chloride of 109 and his BUN is 16 with a creatinine of 1 and a glucose of 117. COVID serology on the was negative. Fingerstick blood sugars have run between 99 and 187 over the last 24 hours. IMPRESSION: Anemia with evidence for recent bleeding. His last endoscopic examinations were in 2016. He had been scheduled for EGD and colonoscopy on the morning of the . He has now performed a mechanical bowel preparation with GoLYTELY last night. PLAN: The patient will proceed with his EGD and colonoscopy today. He was counseled regarding the potential risks of the procedures which include but are not limited to bleeding, infection, aspiration, perforation, and missed abnormalities. He desires to proceed and we will go ahead with his scopes today. LIA
[2020-12-07] MEDS ORDERED: LR 1,000 ML IV SCH (12:30)
[2020-12-07] MEDS ORDERED: ONDANSETRON 4MG/2ML VIAL IV PRN (12:30)
--- NOTE | 2020-12-07 12:36 | ROOR ---
Patient Name: Chapo Canada Procedure Date: 12/07/2020 10:48 AM Date of : 1935 Age: 85 Room: Main OR Gender: Male Note Status: Finalized Procedure: Colonoscopy Indications: Last colonoscopy: 2015, Heme positive stool, Iron deficiency anemia Providers: Victor M Watts MD Referring MD: Gabriella Baires Md Requesting Provider: Medicines: Monitored Anesthesia Care Complications: No immediate complications. Procedure: Pre-Anesthesia Assessment: - Prior to the procedure, a History and Physical was performed, and patient medications and allergies were reviewed. The patient is competent. The risks and benefits of the procedure and the sedation options and risks were discussed with the patient. All questions were answered and informed consent was obtained. Patient identification and proposed procedure were verified by the physician, the nurse and the broker in charge in the procedure room. Mental Status Examination: alert and oriented. Prophylactic Antibiotics: The patient does not require prophylactic antibiotics. Prior Anticoagulants: The patient has taken no previous anticoagulant or antiplatelet agents. ASA Grade Assessment: III - A patient with severe systemic disease. After reviewing the risks and benefits, the patient was deemed in satisfactory condition to undergo the procedure. The anesthesia plan was to use monitored anesthesia care (MAC). Immediately prior to administration of medications, the patient was re-assessed for adequacy to receive sedatives. The heart rate, respiratory rate, oxygen saturations, blood pressure, adequacy of pulmonary ventilation, and response to care were monitored throughout the procedure. The physical status of the patient was re-assessed after the procedure. The Colonoscope was introduced through the anus and advanced to the cecum, identified by appendiceal orifice and ileocecal valve. The colonoscopy was performed without difficulty. The patient tolerated the procedure well. The quality of the bowel preparation was good. Findings: The perianal and digital rectal examinations were normal. A few medium-mouthed diverticula were found in the sigmoid colon. Internal hemorrhoids were found during endoscopy. The hemorrhoids were mild. The exam was otherwise without abnormality. Impression: - Diverticulosis in the sigmoid colon. - Internal hemorrhoids. - The examination was otherwise normal. - No specimens collected. Recommendation: - Return patient to [facility] for ongoing care. - Resume previous diet. Procedure Code(s): --- Professional --- 18164, Colonoscopy, flexible; diagnostic, including collection of specimen(s) by brushing or washing, when performed (separate procedure) Diagnosis Code(s): --- Professional --- K64.8, Other hemorrhoids R19.5, Other fecal abnormalities D50.9, Iron deficiency anemia, unspecified K57.30, Diverticulosis of large intestine without perforation or abscess without bleeding CPT copyright 2019 [employer]. All rights reserved. The codes documented in this report are preliminary and upon medical billing coder review may be revised to meet current compliance requirements. Attending Participation: I personally performed the entire procedure. Victor M Watts MD Victor M Watts MD 12/07/2020 12:36:06 PM Electronically signed by Victor M Watts MD Number of Addenda: 0 Note Initiated On: 12/07/2020 10:48 AM Estimated Blood Loss: Estimated blood loss: none.
[2020-12-07 13:00] VITALS: BP 121/76
--- NOTE | 2020-12-07 13:29 | IPNPDOC ---
Text Note Date of Service The patient was seen on 12/07/20. NOTE Subjective: No any acute events overnight. Colonoscopy was done today, patient tolerates procedure well Objective: GENERAL APPEARANCE: NAD HEENT: no scleral icterus, no JVD, EOMI CARDIOVASCULAR: S1S2 LUNGS: CTA ABDOMEN: soft & not tender w palpitation MUSCULOSKELETAL: no cyanosis, no swelling INTEGUMENT: no generalized pallor NEUROLOGICAL: cranial nerve function from 2-12 intact intact, follows commands, speech not dysarthric Assessment/Plan Mr. Canada is an 85 year old male with atrial fibrillation on Eliquis who presents with acute anemia. Most likely blood loss anemia from Eliquis. Eliquis will be held and patient will be transfused with 2u pRBC Plan: 1. Acute anemia secondary to diverticulosis/hemorrhoids Secondary to GI bleed superimposed with oral targets anticoagulation Patient received blood transfusion 2 units, hemoglobin stable continue protonix BID and Carafate H&H every 6 hours Today colonoscopy was done and showed - Diverticulosis in the sigmoid colon. - Internal hemorrhoids. - The examination was otherwise normal. - No specimens collected. 2. Atrial fibrillation -Continue metoprolol -Hold Apixaban 3. DM -Insulin sliding scale 4. Depression/Anxiety -Continue Duloxetine 5. Dyslipidemia -Atorvastatin 6. DVT ppx -SCD and TEDs VS,Fishbone, I+O VS, Fishbone, I+O Laboratory Tests 12/06/20 15:40 12/06/20 22:09 12/07/20 05:30 12/07/20 10:01 Vital Signs Date Time Temp Pulse Resp B/P (MAP) Pulse Ox O2 Delivery O2 Flow Rate FiO2 12/07/20 13:00 97.2 83 18 121/76 (91) 96 Room Air 12/05/20 22:15 97 I&O- Last 24 Hours up to 6 AM 12/07/20 06:00 Intake Total 780 ml Output Total 400 ml Balance 380 ml ERAN NETTLES DO Dec 07, 2020 13:29
[2020-12-07 13:30] VITALS: BP 123/78
[2020-12-07] MEDS: ATORVASTATIN 20 MG TAB PO SCH (15:27)
[2020-12-07] MEDS: FERROUS SULFATE 325MG TAB PO SCH (15:27)
[2020-12-07] MEDS: TAMSULOSIN 0.4 MG CAP PO SCH (15:27)
[2020-12-07 15:30] VITALS: BP 126/79
[2020-12-07 16:30] VITALS: BP 121/65
[2020-12-07] MEDS ORDERED: HumaLOG INSULIN (NovoLOG) PER UNIT SC SCH (21:00)
[2020-12-07] MEDS: DULoxetine 30 MG CAP (CYMBALTA) PO SCH (21:10)
[2020-12-07] MEDS: SUCRALFATE 1 GM TAB PO SCH (21:10)
[2020-12-07 22:00] VITALS: BP 122/68
[2020-12-08 02:00] VITALS: BP 121/73
[2020-12-08 06:00] VITALS: BP 123/75
[2020-12-08 06:35] LABS: HEMATOCRIT 28.3 % (42.0-52.0); HEMOGLOBIN 8.5 g/dl (13.5-17.5); MEAN CORPUSCULAR HEMOGLOBIN 29.7 pg (27.0-33.0); PLATELET COUNT, AUTOMATED 277 10^3/uL (150-450); RED BLOOD COUNT 2.86 10^6/uL (4.30-6.10); WHITE BLOOD COUNT 6.4 10^3/uL (4.0-10.0)
[2020-12-08 06:59] LABS: BLOOD UREA NITROGEN 17 MG/DL (7-18); CALCIUM LEVEL 8.5 MG/DL (8.8-10.2); CARBON DIOXIDE LEVEL 24 MEQ/L (21-32); CHLORIDE LEVEL 106 MEQ/L (98-107); CREATININE FOR GFR 1.11 MG/DL (0.70-1.30); GLOMERULAR FILTRATION RATE > 60.0 (>35); GLUCOSE, FASTING 159 MG/DL (70-100); POTASSIUM SERUM 4.5 MEQ/L (3.5-5.1); SODIUM LEVEL 139 MEQ/L (136-145)
[2020-12-08 08:13] VITALS: BP 123/76
[2020-12-08] MEDS: HumaLOG INSULIN (NovoLOG) PER UNIT SC SCH ×2 (08:13→12:00)
[2020-12-08] MEDS: METOPROLOL TART 50 MG TAB PO SCH (08:13)
[2020-12-08] MEDS: ATORVASTATIN 20 MG TAB PO SCH (08:13)
[2020-12-08] MEDS: TAMSULOSIN 0.4 MG CAP PO SCH (08:14)
[2020-12-08] MEDS: FERROUS SULFATE 325MG TAB PO SCH (08:14)
[2020-12-08] MEDS: PANTOPRAZOLE 40MG VIAL (C9113 PER 1) IV SCH (08:14)
[2020-12-08 10:00] VITALS: BP 122/74
--- NOTE | 2020-12-08 13:58 | DS.PDOC ---
Discharge Summary General Date of Admission Dec 05, 2020 at 20:33 Date of Discharge 12/08/20 Discharge Summary PROCEDURES PERFORMED DURING STAY: [None]. ADMITTING DIAGNOSES: Acute anemia secondary to diverticulosis/hemorrhoids Atrial fibrillation DM Depression/Anxiety Dyslipidemia DISCHARGE DIAGNOSES: Acute anemia secondary to diverticulosis/hemorrhoids Atrial fibrillation DM Depression/Anxiety Dyslipidemia COMPLICATIONS/CHIEF COMPLAINT: Anemia. HISTORY OF PRESENT ILLNESS: Mr. Canada is an 85 year old male with atrial fibrillation on Eliquis who presents with acute anemia. Most likely blood loss anemia from Eliquis. Eliquis will be held and patient will be transfused with 2u pRBC HOSPITAL COURSE: During hospital stay the following issues addressed 1. Acute anemia secondary to diverticulosis/hemorrhoids Secondary to GI bleed superimposed with oral targets anticoagulation Patient received blood transfusion 2 units, hemoglobin stable continue protonix BID and Carafate colonoscopy was done and showed - Diverticulosis in the sigmoid colon. - Internal hemorrhoids. - The examination was otherwise normal. - No specimens collected. 2. Atrial fibrillation -Continue metoprolol -Hold Apixaban 3. DM -Insulin sliding scale 4. Depression/Anxiety -Continue Duloxetine 5. Dyslipidemia -Atorvastatin DISCHARGE MEDICATIONS: Please see below. ALLERGIES: Please see below. PHYSICAL EXAMINATION ON DISCHARGE: VITAL SIGNS: Please see below. GENERAL APPEARANCE: NAD HEENT: no scleral icterus, no JVD, EOMI CARDIOVASCULAR: S1S2 LUNGS: CTA ABDOMEN: soft & not tender w palpitation MUSCULOSKELETAL: no cyanosis, no swelling INTEGUMENT: no generalized pallor NEUROLOGICAL: cranial nerve function from 2-12 intact intact, follows commands, speech not dysarthric LABORATORY DATA: Please see below. PROGNOSIS: Fair ACTIVITY: [As tolerated]. DIET: Cardiac DISPOSITION: . Home DISCHARGE INSTRUCTIONS: Stop taking apixaban for 10 days. Resume after discussion with PCP ITEMS TO FOLLOWUP ON ON OUTPATIENT: Follow-up with PCP DISCHARGE CONDITION: [Stable]. TIME SPENT ON DISCHARGE: 40 minutes. Vital Signs/I&Os Vital Signs Date Time Temp Pulse Resp B/P (MAP) Pulse Ox O2 Delivery O2 Flow Rate FiO2 12/08/20 10:00 98.5 84 18 122/74 (90) 96 Room Air 12/05/20 22:15 97 I&O- Last 24 Hours up to 6 AM 12/08/20 05:59 Intake Total 1270 ml Output Total 200 ml Balance 1070 ml Laboratory Data Labs 24H Laboratory Tests 2 12/07/20 17:21: Bedside Glucose (Misc Panel) 148H 12/07/20 20:21: Bedside Glucose (Misc Panel) 162H 12/08/20 06:03: Nucleated Red Blood Cells % (auto) 0.0, Anion Gap 9, Glomerular Filtration Rate > 60.0, Calcium Level 8.5L CBC/BMP Laboratory Tests 12/08/20 06:03 FSBS Laboratory Tests Test 12/07/20 17:21 12/07/20 20:21 Range/Units Bedside Glucose (Misc Panel) 148 162 83-110 MG/DL Discharge Medications Scheduled Aspirin (Ecotrin) 81 Mg Tablet.dr, 81 MG PO QHS, (Reported) Atorvastatin Calcium (Atorvastatin Calcium) 40 Mg Tablet, 40 MG PO DAILY, (Reported) Duloxetine Hcl (Duloxetine HCl) 30 Mg Capsule.dr, 30 MG PO QHS, (Reported) Ferrous Sulfate (Ferrous Sulfate) 325 Mg Tablet.dr, 325 MG PO DAILY, (Reported) Glipizide (Glipizide) 5 Mg Tablet, 5 MG PO QHS, (Reported) Glipizide (Glipizide) 5 Mg Tablet, 7.5 MG PO QAM, (Reported) Linagliptin (Tradjenta) 5 Mg Tablet, 5 MG PO DAILY, (Reported) Metoprolol Tartrate (Metoprolol Tartrate) 50 Mg Tablet, 50 MG PO BID, (Reported) Pantoprazole Sodium (Pantoprazole Sodium) 40 Mg Tablet.dr, 40 MG PO DAILY, (Reported) Sucralfate (Sucralfate) 1 Gm Tablet, 1 GM PO QHS, (Reported) Tamsulosin HCl (Flomax) 0.4 Mg Capsule, 0.4 MG PO DAILY, (Reported) Allergies Coded Allergies: No Known Allergies (Unverified , 04/01/20) ERAN NETTLES DO Dec 08, 2020 13:58
[2020-12-08] MEDS ORDERED: FERROUS SULFATE 325MG TAB PO SCH (21:00)
== END 2020-12-08 14:00 | disposition home or self-care (01) | DRG 813 ==
LOC: M ED 17:21 → M ED INP 20:33 → M MSPAV 22:18
PROVIDERS: ADMIT Internal Medicine; ATTEND Internal Medicine
PROC: 30233N1 Transfusion of Nonautologous Red Blood Cells into Peripheral Vein, Percutaneous Approach (ICD-10-PCS; principal; 2020-12-05)
PROC: 0DJD8ZZ Inspection of Lower Intestinal Tract, Via Natural or Artificial Opening Endoscopic (ICD-10-PCS; 2020-12-07)
DX: D68.32 Hemorrhagic disorder due to extrinsic circulating anticoagulants (principal); D62 Acute posthemorrhagic anemia; I48.91 Unspecified atrial fibrillation; K57.30 Diverticulosis of large intestine without perforation or abscess without bleeding; K64.8 Other hemorrhoids; E11.9 Type 2 diabetes mellitus without complications; F41.9 Anxiety disorder, unspecified; F32.9 Major depressive disorder, single episode, unspecified; E78.5 Hyperlipidemia, unspecified; Z79.01 Long term (current) use of anticoagulants; Z79.82 Long term (current) use of aspirin; Z79.899 Other long term (current) drug therapy; K44.9 Diaphragmatic hernia without obstruction or gangrene; I25.10 Atherosclerotic heart disease of native coronary artery without angina pectoris; Z96.651 Presence of right artificial knee joint

== ENCOUNTER → 2020-12-20 | Outpatient (REF) | payer MEDICARE, OTHER ==
[~2020-12-20] MED LIST changes: +ASPI-569 PO; -ASPI81TAEC PO; +DULO30CA9 PO; +ECOT81TA5 PO; +FERR325T3 PO; +FLOM0.4C39 PO; +PANT-23 PO; +SUCR1TAB56 PO
[2020-12-20 14:04] LABS: HEMOGLOBIN 8.5 g/dl (13.5-17.5); MEAN CORPUSCULAR HEMOGLOBIN 29.9 pg (27.0-33.0); MEAN CORPUSCULAR HGB CONC 30.4 g/dl (32.0-36.5); MEAN CORPUSCULAR VOLUME 98.6 fl (80.0-96.0); PLATELET COUNT, AUTOMATED 264 10^3/uL (150-450); RED BLOOD COUNT 2.84 10^6/uL (4.30-6.10); WHITE BLOOD COUNT 5.4 10^3/uL (4.0-10.0)
[2020-12-20 14:49] LABS: ANISOCYTOSIS 1+; EOSINOPHILS 4 % (0-3); LYMPHOCYTES 25 % (16-44); MONOCYTES 3 % (0-5); NEUTROPHILS 68 % (28-66); PLATELET ESTIMATE NORMAL (NORMAL)
[2020-12-20 14:50] LABS: HYPOCHROMASIA 1+
== END ==
LOC: M LAB REF 13:26
PROVIDERS: ATTEND Family Medicine
DX: Z87.19 Personal history of other diseases of the digestive system (principal)

== ENCOUNTER 2021-01-31 15:58 | Inpatient (IN) | payer MEDICARE, OTHER ==
[~2021-01-31] VITALS: Ht 180.3 cm; Wt 85.2 kg
[2021-01-31] VITALS (7 sets, daily range): BP systolic 96–111; BP diastolic 56–73
[2021-01-31] MEDS ORDERED: NS 500 ML IV ONE (16:25)
--- NOTE | 2021-01-31 16:45 | REP ---
INDICATION: altered mental status. COMPARISON: 09/23/2020 TECHNIQUE: Portable FINDINGS: The technique utilized in obtaining the radiograph has magnified the cardiac silhouette and accentuated the interstitial markings. Note is again made of cardiomegaly accentuated by technique. Noted again made of previous median sternotomy. Fibrotic changes are again seen throughout the lung jauregui with basilar predominance status quo. No acute patchy parenchymal opacities or pleural effusions have developed. There is no significant change in the appearance of the imaged osseous structures. IMPRESSION: Stable appearing chronic changes. <Electronically signed by Robel Liu > 01/31/21 [id number]
[2021-01-31 17:13] LABS: MEAN CORPUSCULAR HEMOGLOBIN 28.5 pg (27.0-33.0); MEAN CORPUSCULAR HGB CONC 29.1 g/dl (32.0-36.5); MEAN CORPUSCULAR VOLUME 97.9 fl (80.0-96.0); PLATELET COUNT, AUTOMATED 267 10^3/uL (150-450); RED BLOOD COUNT 2.35 10^6/uL (4.30-6.10); WHITE BLOOD COUNT 6.1 10^3/uL (4.0-10.0)
[2021-01-31 17:26] LABS: INR 1.24; PROTHROMBIN TIME 15.9 SECONDS (12.5-14.3)
[2021-01-31 17:27] LABS: PARTIAL THROMBOPLASTIN TIME 28.9 SECONDS (24.2-38.5)
[2021-01-31 17:29] LABS: HEMOGLOBIN 6.7 g/dl (13.5-17.5)
[2021-01-31 17:38] LABS: ALBUMIN 2.9 GM/DL (3.2-5.2); ALT/SGPT 45 U/L (12-78); BILIRUBIN,DIRECT 0.2 MG/DL (0.0-0.2); BILIRUBIN,TOTAL 0.4 MG/DL (0.2-1.0); BLOOD UREA NITROGEN 28 MG/DL (7-18); CARBON DIOXIDE LEVEL 24 MEQ/L (21-32); CHLORIDE LEVEL 108 MEQ/L (98-107); CK-MB VALUE MASS 4.6 NG/ML (<3.6); CPK CREATINE PHOSPHOKINASE 66 U/L (39-308); CREATININE FOR GFR 1.02 MG/DL (0.70-1.30); GLOMERULAR FILTRATION RATE > 60.0 (>35); GLUCOSE, FASTING 129 MG/DL (70-100); LIPASE 375 U/L (73-393); MB/CK RELATIVE INDEX 6.97 (< OR =4); POTASSIUM SERUM 4.6 MEQ/L (3.5-5.1); SODIUM LEVEL 140 MEQ/L (136-145); TOTAL PROTEIN 5.9 GM/DL (6.4-8.2); TROPONIN I 0.02 NG/ML (< 0.10)
[2021-01-31 17:52] LABS: ANISOCYTOSIS 1+; ATYPICAL LYMPH 1 % (0-5); EOSINOPHILS 3 % (0-3); HYPOCHROMASIA 2+; LYMPHOCYTES 15 % (16-44); MONOCYTES 9 % (0-5); NEUTROPHILS 72 % (28-66)
[2021-01-31 17:53] LABS: POIKILOCYTOSIS 1+
[2021-01-31 17:56] LABS: OVALOCYTES 1+; PLATELET ESTIMATE NORMAL (NORMAL)
[2021-01-31] MEDS ORDERED: DEXTROSE 50% 50 ML SYRINGE IV PRN (18:05)
[2021-01-31] MEDS ORDERED: MOM 30ML SUSPENSION UDC PO PRN (18:05)
[2021-01-31] MEDS ORDERED: ELIQ5TAB PO (18:05)
[2021-01-31] MEDS ORDERED: METF500T13 PO (18:05)
[2021-01-31] MEDS ORDERED: ACETAMINOPHEN TAB 650MG DOSE (2X325MG) PO PRN (18:05)
[2021-01-31] MEDS ORDERED: FISH1000 PO (18:05)
[2021-01-31] MEDS ORDERED: GLUCOSE 4GM CHEW TABLET PO PRN (18:05)
[2021-01-31] MEDS ORDERED: GABA-1171 PO (18:05)
[2021-01-31] MEDS ORDERED: GLUCAGON INJ 1MG VIAL SC PRN (18:05)
--- NOTE | 2021-01-31 18:17 | REPVR ---
PROCEDURE INFORMATION: Exam: CT Head Without Contrast Exam date and time: 01/31/2021 5:45 PM Age: 85 years old Clinical indication: Pain; Headache; Additional info: Altered mental status TECHNIQUE: Imaging protocol: Computed tomography of the head without contrast. Radiation optimization: All CT scans at this facility use at least one of these dose optimization techniques: automated exposure control; mA and/or kV adjustment per patient size (includes targeted exams where dose is matched to clinical indication); or iterative reconstruction. COMPARISON: CT Head without contrast 09/23/2020 6:16 AM FINDINGS: Brain: There is moderate age related parenchymal volume loss. White matter changes are demonstrated in the subcortical, centrum semiovale and periventricular white matter consistent with chronic age related small vessel ischemic changes. Cerebral ventricles: The degree of ventricular dilatation is normal for age and/or degree of atrophy present. Small lacunar infarcts adjacent to the anterior body of the right lateral ventricle in mid body left lateral ventricle. Bones/joints: Unremarkable. No acute fracture. Paranasal sinuses: Visualized sinuses are unremarkable. No fluid levels. Mastoid air cells: Visualized mastoid air cells are well aerated. Soft tissues: Unremarkable. IMPRESSION: 1. There is moderate age related parenchymal volume loss. White matter changes are demonstrated in the subcortical, centrum semiovale and periventricular white matter consistent with chronic age related small vessel ischemic changes. 2. The degree of ventricular dilatation is normal for age and/or degree of atrophy present. 3. No acute intracranial findings. Electronically signed by: Sammy Hartley On 01/31/2021 18:18:01 PM
--- NOTE | 2021-01-31 18:51 | HPEPDOC ---
[facility] Medical History & Physical Date of Admission Jan 31, 2021 Date of Service: Jan 31, 2021 Attending Physician: MARITZA ARELLANO MD History and Physical CHIEF COMPLAINT: weakness HISTORY OF PRESENT ILLNESS: 85 year old M with atrial fibrillation on Eliquis, who was recently admitted for acute on chronic anemia with GIB s/p EGD/colonoscopy on 12/[address] Watts that identified diverticulosis and internal hemorrhoids and was later placed back on his full dose eliquis of 5mg BID at discharge who now returns with weakness, fatigue, inability to participate in ADLs and found in the ED to dry on examination with soft BPs SBP 98, without a history of recent fever, chills, sick contacts, chest pain, palpitations, extremity swelling of edema, abdominal pain, diarrhea, constipation, hematochezia or obvious melena. While in the ED, he was given 500cc on NS and 1unit of blood was ordered for a hemoglobin of 6.7. Rest f ED workup was notable for WBC 6.1, platelets 267, na 140, K 4.6, Cr 1.02, non ischemic EKG, troponin negative, LFTS and lipase within normal limits, bland UA, and CXR without any noted acute pathology with stable chronic changes. Of note, he had a guaiac in the ED that was negative. He is now being admitted to medicine for symptomatic anemia likely from slow intermittent GIB 2/2 diverticulosis vs. hemorrhoids. Allergies Coded Allergies: No Known Allergies (Unverified , 04/01/20) Past Medical History 1. Hypertension 2. Diabetes mellitus 3. Hiatal hernia 4. CAD 5. A fib 6. Ulnar nerve transplants 7. Kidney stones 8. Actinic keratosis 9. Anemia 10. Lumbar spondylosis with right sided motor weakness Surgical History: 1. Back surgery 2. Right knee replacement 3. Toes straightened 4. Bilateral carpel tunnel surgery 5. Heart bypass surgery 6. Nerve in right elbow 7. Ureteroscopy/laser lithotripsy 8. Angioplasty 9. Right lower leg amputation Family History Father: DM Mother: Cardiac disease. Had pacemaker placed Social History Smoking: Denies Alcohol: Denies Drugs: Denies Review of Systems: 10 point ROS was positive for the stated pertinent positives in the HPI and otherwise negative. 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 Psych: Poor historian, appears mildly confused, but redirectible, Mood NL Laboratory Data and Imaging: as summarized above. Otherwise please see below. Assessment: 85 year old M with atrial fibrillation on Eliquis who was recently admitted for GIB and had EGD/colo in 11/2020 that showed diverticulosis and some internal hemorrhoids, who returns with again acute on chronic anemia while back on eliquis 5mg BID. Plan 1. Acute on chronic anemia -Most likely slow blood loss while Eliquis -Holding Eliquis and will transfuse a total 2u pRBC, for goal Hgb >8 -IV protonix BID and Carafate -Continue ferrous sulfate -clear liquid diet -AM CBC -Will discuss risk vs. benefit of continuing eliquis given continued symptomatic anemia with potential bleeding. Also he is 85 yo and after BMI and GFR measurement, may benefit from dose adjusting to 2.5 BID instead of 5 BID. 2. Atrial fibrillation -Switch from metoprolol tartrate dosed once daily to succinate which is the XR ideal for daily dosing. -Holding Apixaban 3. DM -Insulin sliding scale -Hold home meds -clear liquid diet for now 4. Depression/Anxiety -Continue Duloxetine 5. Dyslipidemia -Atorvastatin 6. DVT ppx -SCD and TEDs Vital Signs Vital Signs Date Time Temp Pulse Resp B/P (MAP) Pulse Ox O2 Delivery O2 Flow Rate FiO2 01/31/21 17:02 96.3 96 22 98/60 (73) 98 Room Air Laboratory Data Labs 24H Laboratory Tests 2 01/31/21 16:54: Prothrombin Time 15.9H, Prothromb Time International Ratio 1.24, Activated Partial Thromboplast Time 28.9 01/31/21 16:55: Immature Granulocyte % (Auto) , Neutrophils (%) (Auto) , Nucleated Red Blood Cells % (auto) 0.3H, Neutrophils 72H, Lymphocytes (Manual) 15L, Monocytes (Manual) 9H, Eosinophils (Manual) 3, Atypical Lymphocytes 1, Hypochromasia 2+, Poikilocytosis 1+, Anisocytosis 1+, Ovalocytes 1+, Acanthocytes 1+, Platelet Estimate NORMAL, Urine Color YELLOW, Urine Appearance CLEAR, Urine pH 5.0, Urine Specific [place] 1.017, Urine Protein 1+H, Urine Glucose (UA) NEGATIVE, Urine Ketones NEGATIVE, Urine Blood NEGATIVE, Urine Nitrite NEGATIVE, Urine Bilirubin NEGATIVE, Urine Urobilinogen 0.2, Urine Leukocyte Esterase NEGATIVE, Urine WBC (Auto) 1, Urine RBC (Auto) 2, Urine Hyaline Casts (Auto) 0, Urine Bacteria (Auto) NEGATIVE, Urine Squamous Epithelial Cells 0, Urine Mucus (Auto) SMALL, Urine Sperm (Auto) , Anion Gap 8, Glomerular Filtration Rate > 60.0, Lactic Acid Level 2.8*H, Calcium Level 9.0, Total Bilirubin 0.4, Direct Bilirubin 0.2, Aspartate Amino Transf (AST/SGOT) 25, Alanine Aminotransferase (ALT/SGPT) 45, Alkaline Phosphatase 60, Total Creatine Kinase 66, Creatine Kinase MB 4.6H, Creatine Kinase MB Relative Index 6.97H, Troponin I 0.02, Total Protein 5.9L, Albumin 2.9L, Albumin/Globulin Ratio 1.0, Lipase 375 CBC/BMP Laboratory Tests 01/31/21 16:55 Microbiology Microbiology 01/31/21 Respiratory Virus Panel (PCR) (DIANA), Received Pending 01/31/21 Blood Culture, Received Pending 01/31/21 Blood Culture, Received Pending Home Medications Scheduled Apixaban (Eliquis) 5 Mg Tablet, 5 MG PO BID Aspirin (Ecotrin) 81 Mg Tablet.dr, 81 MG PO DAILY Atorvastatin Calcium (Atorvastatin Calcium) 40 Mg Tablet, 40 MG PO DAILY Duloxetine Hcl (Duloxetine HCl) 30 Mg Capsule.dr, 30 MG PO DAILY Ferrous Sulfate (Ferrous Sulfate) 325 Mg Tablet.dr, 325 MG PO DAILY Gabapentin (Gabapentin) 100 Mg Capsule, 100 MG PO BID Glipizide (Glipizide) 5 Mg Tablet, 5 MG PO QHS Glipizide (Glipizide) 5 Mg Tablet, 7.5 MG PO QAM Linagliptin (Tradjenta) 5 Mg Tablet, 5 MG PO DAILY Metformin HCl (Metformin HCl) 500 Mg Tablet, 1,000 MG PO BID Metoprolol Tartrate (Metoprolol Tartrate) 50 Mg Tablet, 50 MG PO DAILY [place]-3 Fatty Acids/Fish Oil (Fish Oil 1,000 mg Capsule) 1 Each Capsule, 2,000 M G PO DAILY Pantoprazole Sodium (Pantoprazole Sodium) 40 Mg Tablet.dr, 40 MG PO DAILY Sucralfate (Sucralfate) 1 Gm Tablet, 1 GM PO DAILY Tamsulosin HCl (Flomax) 0.4 Mg Capsule, 0.4 MG PO DAILY Allergies Coded Allergies: No Known Allergies (Unverified , 04/01/20) A-FIB/CHADSVASC A-FIB History Current/History of A-Fib/PAF?: Yes Current PO Anticoag Therapy: No Age/Risk Factor Scoring CHADSVASC: CHADSVASC Response (Comments) Value Age Risk Factor Age >/= 75 years old 2 Gender Risk Factor Male 0 Hx of CHF No 0 Hx of HTN Yes 1 Hx of Stroke/TIA/or VTE No 0 Hx of Diabetes Yes 1 Hx of Vascular Disease Yes 1 Total 5 Treatment Treatment ordered: NONE Reason Anticoagulant not given: Current bleeding Other reason anticoagulant not: bleeding MARITZA ARELLANO MD Jan 31, 2021 18:32
[2021-01-31] MEDS: HumaLOG INSULIN (NovoLOG) PER UNIT SC SCH (21:00)
[2021-01-31] MEDS: PANTOPRAZOLE 40MG VIAL (C9113 PER 1) IV SCH (22:03)
[2021-01-31] MEDS: GABAPENTIN 100 MG CAP PO SCH (22:05)
[2021-02-01] VITALS (11 sets, daily range): BP systolic 95–132; BP diastolic 65–83
[2021-02-01] MEDS: HumaLOG INSULIN (NovoLOG) PER UNIT SC SCH ×4 (07:30→20:28)
[2021-02-01 07:38] LABS: HEMATOCRIT 26.3 % (42.0-52.0); HEMOGLOBIN 8.1 g/dl (13.5-17.5); MEAN CORPUSCULAR HGB CONC 30.8 g/dl (32.0-36.5); MEAN CORPUSCULAR VOLUME 94.3 fl (80.0-96.0); PLATELET COUNT, AUTOMATED 244 10^3/uL (150-450); RED BLOOD COUNT 2.79 10^6/uL (4.30-6.10); WHITE BLOOD COUNT 5.6 10^3/uL (4.0-10.0)
[2021-02-01 07:59] LABS: BLOOD UREA NITROGEN 27 MG/DL (7-18); CALCIUM LEVEL 8.8 MG/DL (8.8-10.2); CARBON DIOXIDE LEVEL 24 MEQ/L (21-32); CHLORIDE LEVEL 108 MEQ/L (98-107); CREATININE FOR GFR 0.93 MG/DL (0.70-1.30); GLOMERULAR FILTRATION RATE > 60.0 (>35); GLUCOSE, FASTING 89 MG/DL (70-100); MAGNESIUM LEVEL 1.6 MG/DL (1.8-2.4); POTASSIUM SERUM 3.8 MEQ/L (3.5-5.1); SODIUM LEVEL 138 MEQ/L (136-145)
[2021-02-01] MEDS: OMEGA-3 1000MG CAPSULE PO SCH (09:23)
[2021-02-01] MEDS: ATORVASTATIN 20 MG TAB PO SCH (09:23)
[2021-02-01] MEDS: METOPROLOL SUCC (TopROL XL) 50MG **XL** TAB PO SCH (09:24)
[2021-02-01] MEDS: FERROUS SULFATE 325MG TAB PO SCH (09:24)
[2021-02-01] MEDS: GABAPENTIN 100 MG CAP PO SCH ×2 (09:25→20:34)
[2021-02-01] MEDS: DULoxetine 30 MG CAP (CYMBALTA) PO SCH (09:25)
[2021-02-01] MEDS: TAMSULOSIN 0.4 MG CAP PO SCH (09:25)
[2021-02-01] MEDS: SUCRALFATE 1 GM TAB PO SCH (09:25)
[2021-02-01] MEDS: PANTOPRAZOLE 40MG VIAL (C9113 PER 1) IV SCH ×2 (09:25→20:34)
[2021-02-01] MEDS: ASPIRIN 81MG ENTERIC TABLET PO SCH (09:25)
[2021-02-01] MEDS ORDERED: MAG SULF 1GM/100ML (MAG RUN) 1 GM in IV 1 EA IV ONE (10:00)
--- NOTE | 2021-02-01 10:13 | ECGEPIP ---
[facility] - ED Test Date: 2021-01-31 Pat Name: LOC GUTIERREZ Department: Room: - Gender: [facility] Attendant: HERMELINDO : 1935 Requested By: STANTON Kessler Order Number: [id number] Reading MD: Johanna Muro Measurements Intervals [place] Rate: 78 P: CA: QRS: -26 QRSD: 148 T: -6 QT: 438 QTc: 499 Interpretive Statements Atrial fibrillation/flutter Right bundle branch block Inferior infarct , age undetermined similar 12/05/20 Electronically Signed on 02-01-2021 10:13:02 EDT by Johanna uMro
--- NOTE | 2021-02-01 11:36 | IPNPDOC ---
Text Note Date of Service The patient was seen on 02/01/21. 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 LLE with 1+ pitting edema Laboratory Data: AM labs pending CBC and BMP Assessment: 85 year old M with atrial fibrillation on Eliquis who was recently admitted for GIB and had EGD/colo in 11/2020 that showed diverticulosis and some internal hemorrhoids, who returns with again acute on chronic anemia while back on eliquis 5mg BID. Plan 1. Acute on chronic anemia -Most likely slow blood loss while Eliquis -Holding Eliquis -s/p 2u pRBC, for goal Hgb >8 -IV protonix BID and Carafate -Continue ferrous sulfate -clear liquid diet -f/u AM CBC -Will discuss risk vs. benefit of continuing eliquis given continued symptomatic anemia with potential bleeding. Also he is 85 yo and after BMI and GFR measurement, may be appropriate to adjust to 2.5 BID instead of 5 BID. 2. Atrial fibrillation -continue metop succinate 50mg daily. -Holding Apixaban 3. DM -Insulin sliding scale -Hold home meds -clear liquid diet 4. Depression/Anxiety -Continue Duloxetine 5. Dyslipidemia -Atorvastatin 6. DVT ppx -SCD and TEDs VS,Fishbone, I+O VS, Fishbone, I+O Laboratory Tests 01/31/21 16:55 Vital Signs Date Time Temp Pulse Resp B/P (MAP) Pulse Ox O2 Delivery O2 Flow Rate FiO2 02/01/21 06:00 98.4 101 18 110/72 (85) 94 Room Air I&O- Last 24 Hours up to 6 AM 02/01/21 06:00 Intake Total 1300 ml Balance 1300 ml MARITZA ARELLANO MD Feb 01, 2021 07:34
[2021-02-02 05:54] VITALS: BP 154/89
[2021-02-02 06:48] LABS: HEMATOCRIT 30.6 % (42.0-52.0); HEMOGLOBIN 9.4 g/dl (13.5-17.5); MEAN CORPUSCULAR HEMOGLOBIN 28.9 pg (27.0-33.0); MEAN CORPUSCULAR HGB CONC 30.7 g/dl (32.0-36.5); MEAN CORPUSCULAR VOLUME 94.2 fl (80.0-96.0); PLATELET COUNT, AUTOMATED 235 10^3/uL (150-450); RED BLOOD COUNT 3.25 10^6/uL (4.30-6.10); WHITE BLOOD COUNT 5.9 10^3/uL (4.0-10.0)
[2021-02-02 07:16] LABS: BLOOD UREA NITROGEN 20 MG/DL (7-18); CALCIUM LEVEL 7.9 MG/DL (8.8-10.2); CARBON DIOXIDE LEVEL 24 MEQ/L (21-32); CHLORIDE LEVEL 110 MEQ/L (98-107); CREATININE FOR GFR 0.94 MG/DL (0.70-1.30); GLOMERULAR FILTRATION RATE > 60.0 (>35); GLUCOSE, FASTING 126 MG/DL (70-100); POTASSIUM SERUM 4.2 MEQ/L (3.5-5.1); SODIUM LEVEL 141 MEQ/L (136-145)
[2021-02-02] MEDS: PANTOPRAZOLE 40MG VIAL (C9113 PER 1) IV SCH ×2 (08:09→21:31)
[2021-02-02] MEDS: HumaLOG INSULIN (NovoLOG) PER UNIT SC SCH ×4 (08:10→21:00)
[2021-02-02] MEDS: METOPROLOL SUCC (TopROL XL) 50MG **XL** TAB PO SCH (08:10)
[2021-02-02] MEDS: DULoxetine 30 MG CAP (CYMBALTA) PO SCH (08:11)
[2021-02-02] MEDS: GABAPENTIN 100 MG CAP PO SCH ×2 (08:11→21:31)
[2021-02-02] MEDS: ATORVASTATIN 20 MG TAB PO SCH (08:11)
[2021-02-02] MEDS: FERROUS SULFATE 325MG TAB PO SCH (08:11)
[2021-02-02] MEDS: ASPIRIN 81MG ENTERIC TABLET PO SCH (08:12)
[2021-02-02] MEDS: SUCRALFATE 1 GM TAB PO SCH (08:12)
[2021-02-02] MEDS: TAMSULOSIN 0.4 MG CAP PO SCH (08:12)
[2021-02-02] MEDS: OMEGA-3 1000MG CAPSULE PO SCH (08:13)
[2021-02-02 09:02] LABS: MAGNESIUM LEVEL 1.7 MG/DL (1.8-2.4)
[2021-02-02] MEDS: APIXABAN 2.5 MG TAB (ELIQUIS) PO SCH ×2 (10:46→21:31)
[2021-02-02 14:00] VITALS: BP 122/74
--- NOTE | 2021-02-02 14:35 | IPNPDOC ---
Text Note Date of Service The patient was seen on 02/02/21. 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 LLE with 1+ pitting edema Laboratory Data: WBC 5.9 Hgb 9.4 platelets 451 Na 141 K 4.2 Cr 0.94 Assessment: 85 year old M with atrial fibrillation on Eliquis who was recently admitted for GIB and had EGD/colo in 11/2020 that showed diverticulosis and some internal hemorrhoids, who returns with again acute on chronic anemia while back on eliquis 5mg BID. Plan 1. Acute on chronic anemia -Most likely slow blood loss while Eliquis -Holding Eliquis -s/p 3u pRBC, for goal Hgb >8 -PO Protonix BID and Carafate -Continue ferrous sulfate -Advance to consistent carb diet -Daily CBC -Restart eliquis to 2.5 BID instead of 5 BID. 2. Atrial fibrillation -continue metop succinate 50mg daily. -Restart Apixaban at 2.5 BID 3. DM -Insulin sliding scale -Hold home meds -consistent carb diet 4. Depression/Anxiety -Continue Duloxetine 5. Dyslipidemia -Atorvastatin 6. DVT ppx -eliquis at 2.5 BID VS,Fishbone, I+O VS, Fishbone, I+O Laboratory Tests 02/02/21 06:24 Vital Signs Date Time Temp Pulse Resp B/P (MAP) Pulse Ox O2 Delivery O2 Flow Rate FiO2 02/02/21 05:54 97.5 114 20 154/89 (110) 94 Room Air I&O- Last 24 Hours up to 6 AM 02/02/21 06:00 Intake Total 1480 ml Output Total 900 ml Balance 580 ml MARITZA ARELLANO MD Feb 02, 2021 08:16
[2021-02-02 21:00] VITALS: BP 120/76
[2021-02-02 22:00] VITALS: BP 121/77
[2021-02-03 06:00] VITALS: BP 124/80
[2021-02-03 06:06] LABS: HEMATOCRIT 30.2 % (42.0-52.0); HEMOGLOBIN 9.2 g/dl (13.5-17.5); MEAN CORPUSCULAR HEMOGLOBIN 28.8 pg (27.0-33.0); MEAN CORPUSCULAR HGB CONC 30.5 g/dl (32.0-36.5); MEAN CORPUSCULAR VOLUME 94.7 fl (80.0-96.0); PLATELET COUNT, AUTOMATED 222 10^3/uL (150-450); RED BLOOD COUNT 3.19 10^6/uL (4.30-6.10); WHITE BLOOD COUNT 6.5 10^3/uL (4.0-10.0)
[2021-02-03 06:31] LABS: BLOOD UREA NITROGEN 15 MG/DL (7-18); CALCIUM LEVEL 7.3 MG/DL (8.8-10.2); CARBON DIOXIDE LEVEL 23 MEQ/L (21-32); CHLORIDE LEVEL 109 MEQ/L (98-107); CREATININE FOR GFR 0.98 MG/DL (0.70-1.30); GLOMERULAR FILTRATION RATE > 60.0 (>35); GLUCOSE, FASTING 115 MG/DL (70-100); POTASSIUM SERUM 4.1 MEQ/L (3.5-5.1); SODIUM LEVEL 140 MEQ/L (136-145)
[2021-02-03] MEDS: HumaLOG INSULIN (NovoLOG) PER UNIT SC SCH ×2 (07:30→12:31)
[2021-02-03 09:17] VITALS: BP 124/80
[2021-02-03] MEDS: DULoxetine 30 MG CAP (CYMBALTA) PO SCH (09:17)
[2021-02-03] MEDS: ASPIRIN 81MG ENTERIC TABLET PO SCH (09:17)
[2021-02-03] MEDS: METOPROLOL SUCC (TopROL XL) 50MG **XL** TAB PO SCH (09:17)
[2021-02-03] MEDS: ATORVASTATIN 20 MG TAB PO SCH (09:17)
[2021-02-03] MEDS: SUCRALFATE 1 GM TAB PO SCH (09:17)
[2021-02-03] MEDS: OMEGA-3 1000MG CAPSULE PO SCH (09:18)
[2021-02-03] MEDS: GABAPENTIN 100 MG CAP PO SCH (09:18)
[2021-02-03] MEDS: PANTOPRAZOLE 40MG VIAL (C9113 PER 1) IV SCH (09:18)
[2021-02-03] MEDS: TAMSULOSIN 0.4 MG CAP PO SCH (09:18)
[2021-02-03] MEDS: APIXABAN 2.5 MG TAB (ELIQUIS) PO SCH (09:18)
[2021-02-03] MEDS: FERROUS SULFATE 325MG TAB PO SCH (09:18)
--- NOTE | 2021-02-03 09:19 | DS.PDOC ---
Discharge Summary General Date of Admission Jan 31, 2021 at 18:04 Date of Discharge 02/03/2021 Attending Physician: MARITZA ARELLANO MD Discharge Summary PROCEDURES PERFORMED DURING STAY: None ADMITTING DIAGNOSES: Symptomatic anemia DISCHARGE DIAGNOSES: Symptomatic anemia Acute on chronic anemia with suspicion for slow GIB though no evidence noted with negative guaiac Chronic Hypertension Diabetes mellitus Hiatal hernia CAD Chronic A fib Actinic keratosis Lumbar spondylosis with right sided motor weakness COMPLICATIONS/CHIEF COMPLAINT: Anemia. HISTORY OF PRESENT ILLNESS: 85 year old M with atrial fibrillation on Eliquis, who was recently admitted for acute on chronic anemia with GIB s/p EGD/colonoscopy on 12/[address] Watts that identified diverticulosis and internal hemorrhoids and was later placed back on his full dose eliquis of 5mg BID at discharge who now returned with weakness, fatigue, inability to participate in ADLs and found in the ED to be dry on examination with soft BPs SBP 98, without a history of recent fever, chills, sick contacts, chest pain, palpitations, extremity swelling of edema, abdominal pain, diarrhea, constipation, hematochezia or obvious melena. HOSPITAL COURSE: While in the ED, he was given 500cc on NS and 1unit of blood was ordered for a hemoglobin of 6.7. Rest of ED workup was notable for WBC 6.1, platelets 267, na 140, K 4.6, Cr 1.02, non ischemic EKG, troponin negative, LFTS and lipase within normal limits, bland UA, and CXR without any noted acute pathology with stable chronic changes. Of note, he had a guaiac in the ED that was negative. He was admitted to medicine for symptomatic anemia likely from slow intermittent GIB 2/2 diverticulosis vs. hemorrhoids. On admission his eliquis was held and he was transfused a total of 3 units of pRBCs with a sustained response with now a discharge Hgb of 9.2. I restarted his eliquis at a reduced dose of 2.5 BID on 02/02 and he tolerated it well with a stable Hgb this morning. He worked with PT and he did well and was deemed stable for home discharge with services. I will now discharge him home on the reduced dose of 2.5mg BID eliquis given the recent persistent worsening anemia when he is placed on full dose anticoagulation. He will follow up with his PCP shortly to check a CBC in a few days and has other upcoming appointments with orthopedics and with outpatient PT on 02/05 as previously scheduled. DISCHARGE MEDICATIONS: Please see below. ALLERGIES: Please see below. PHYSICAL EXAMINATION ON DISCHARGE: VITAL SIGNS: Please see below. General: Alert, Cooperative, obese, NAD Eyes: EOMI, anicteric ENT: Atraumatic, dry MM, poor dentition Neck: Supple Chest: Clear to auscultation, no rales, rhonchi or wheezing Heart: Irregular Rhythm with normal rate, no noted murmurs Abdomen: Normal bowel sounds, soft, NTND Neuro: Cranial Nerves 3-12 WNL, 5/5 strength in RUE, LUE, LLE extremities Ext: WWP, RLE s/p AKA with clean healed stump. LLE with 1+ pitting edema LABORATORY DATA: Please see below. IMAGING: CXR: The technique utilized in obtaining the radiograph has magnified the cardiac silhouette and accentuated the interstitial markings. Note is again made of cardiomegaly accentuated by technique. Noted again made of previous median sternotomy. Fibrotic changes are again seen throughout the lung jauregui with basilar predominance status quo. No acute patchy parenchymal opacities or pleural effusions have developed. There is no significant change in the appearance of the imaged osseous structures. IMPRESSION: Stable appearing chronic changes CT head: Brain: There is moderate age related parenchymal volume loss. White matter changes are demonstrated in the subcortical, centrum semiovale and periventricular white matter consistent with chronic age related small vessel ischemic changes. Cerebral ventricles: The degree of ventricular dilatation is normal for age and/or degree of atrophy present. Small lacunar infarcts adjacent to the anterior body of the right lateral ventricle in mid body left lateral ventricle. Bones/joints: Unremarkable. No acute fracture. Paranasal sinuses: Visualized sinuses are unremarkable. No fluid levels. Mastoid air cells: Visualized mastoid air cells are well aerated. Soft tissues: Unremarkable. IMPRESSION: 1. There is moderate age related parenchymal volume loss. White matter changes are demonstrated in the subcortical, centrum semiovale and periventricular white matter consistent with chronic age related small vessel ischemic changes. 2. The degree of ventricular dilatation is normal for age and/or degree of atrophy present. 3. No acute intracranial findings. PROGNOSIS: Good ACTIVITY: As tolerated DIET: consistent carb, 2g sodium DISCHARGE PLAN: Home with outpatient PT and home services. Reduced eliquis to 2.5mg BID from 5mg BID DISPOSITION: Home DISCHARGE INSTRUCTIONS: Home with outpatient PT and home services. Reduced eliquis to 2.5mg BID from 5mg BID ITEMS TO FOLLOWUP ON ON OUTPATIENT: Anemia DISCHARGE CONDITION: Stable TIME SPENT ON DISCHARGE: 37 minutes. Vital Signs/I&Os Vital Signs Date Time Temp Pulse Resp B/P (MAP) Pulse Ox O2 Delivery O2 Flow Rate FiO2 02/03/21 06:00 97.8 111 18 124/80 (95) 94 Room Air I&O- Last 24 Hours up to 6 AM 02/03/21 05:59 Intake Total 1420 ml Output Total 650 ml Balance 770 ml Laboratory Data Labs 24H Laboratory Tests 2 02/02/21 11:21: Bedside Glucose (Misc Panel) 127H 02/02/21 17:17: Bedside Glucose (Misc Panel) 136H 02/02/21 19:44: Bedside Glucose (Misc Panel) 153H 02/03/21 05:53: Nucleated Red Blood Cells % (auto) 0.0, Anion Gap 8, Glomerular Filtration Rate > 60.0, Calcium Level 7.3L CBC/BMP Laboratory Tests 02/03/21 05:53 FSBS Laboratory Tests Test 02/02/21 11:21 02/02/21 17:17 02/02/21 19:44 Range/Units Bedside Glucose (Misc Panel) 127 136 153 83-110 MG/DL Microbiology Microbiology 01/31/21 Respiratory Virus Panel (PCR) (DIANA) - Final, Complete 01/31/21 Blood Culture - Preliminary, Resulted No Growth after 48 hours. All Specime... 01/31/21 Blood Culture - Preliminary, Resulted No Growth after 48 hours. All Specime... Discharge Medications Scheduled Apixaban (Eliquis) 5 Mg Tablet, 5 MG PO BID, (Reported) Aspirin (Ecotrin) 81 Mg Tablet.dr, 81 MG PO DAILY, (Reported) Atorvastatin Calcium (Atorvastatin Calcium) 40 Mg Tablet, 40 MG PO DAILY, (Reported) Duloxetine Hcl (Duloxetine HCl) 30 Mg Capsule.dr, 30 MG PO DAILY, (Reported) Ferrous Sulfate (Ferrous Sulfate) 325 Mg Tablet.dr, 325 MG PO DAILY, (Reported) Gabapentin (Gabapentin) 100 Mg Capsule, 100 MG PO BID, (Reported) Glipizide (Glipizide) 5 Mg Tablet, 5 MG PO QHS, (Reported) Glipizide (Glipizide) 5 Mg Tablet, 7.5 MG PO QAM, (Reported) Linagliptin (Tradjenta) 5 Mg Tablet, 5 MG PO DAILY, (Reported) Metformin HCl (Metformin HCl) 500 Mg Tablet, 1,000 MG PO BID, (Reported) Metoprolol Tartrate (Metoprolol Tartrate) 50 Mg Tablet, 50 MG PO DAILY, (Report ed) [place]-3 Fatty Acids/Fish Oil (Fish Oil 1,000 mg Capsule) 1 Each Capsule, 2,000 MG PO DAILY, (Reported) Pantoprazole Sodium (Pantoprazole Sodium) 40 Mg Tablet.dr, 40 MG PO DAILY, (Reported) Sucralfate (Sucralfate) 1 Gm Tablet, 1 GM PO DAILY, (Reported) Tamsulosin HCl (Flomax) 0.4 Mg Capsule, 0.4 MG PO DAILY, (Reported) Allergies Coded Allergies: No Known Allergies (Unverified , 04/01/20) MARITZA ARELLANO MD Feb 03, 2021 09:13
[2021-02-03] MEDS ORDERED: ELIQ2.5T PO (09:22)
[2021-02-03] MEDS ORDERED: METO1TAB7 PO (09:22)
[2021-02-03] MEDS ORDERED: SIMETHICONE 80MG CHEW TAB PO PRN (10:25)
[2021-02-03] MEDS ORDERED: FUROSEMIDE 20MG/2ML VIAL (J1940) IV ONE (10:30)
== END 2021-02-03 15:45 | disposition home health service (06) | DRG 813 ==
LOC: M ED 15:58 → EDBD 15:58 → M ED INP 18:04 → M MS5PR 22:15
PROVIDERS: ADMIT Internal Medicine; ATTEND Internal Medicine
PROC: 30233N1 Transfusion of Nonautologous Red Blood Cells into Peripheral Vein, Percutaneous Approach (ICD-10-PCS; principal; 2021-01-31)
DX: D68.32 Hemorrhagic disorder due to extrinsic circulating anticoagulants (principal); I48.20 Chronic atrial fibrillation, unspecified; D50.0 Iron deficiency anemia secondary to blood loss (chronic); E11.9 Type 2 diabetes mellitus without complications; I10 Essential (primary) hypertension; K44.9 Diaphragmatic hernia without obstruction or gangrene; I25.10 Atherosclerotic heart disease of native coronary artery without angina pectoris; L57.0 Actinic keratosis; M47.896 Other spondylosis, lumbar region; Z79.01 Long term (current) use of anticoagulants; Z79.82 Long term (current) use of aspirin; Z79.899 Other long term (current) drug therapy; Z96.651 Presence of right artificial knee joint; F32.9 Major depressive disorder, single episode, unspecified; F41.9 Anxiety disorder, unspecified; E78.5 Hyperlipidemia, unspecified

== ENCOUNTER 2021-02-10 16:00 | Observation (INO) | payer MEDICARE, OTHER ==
[~2021-02-10] VITALS: Ht 175.3 cm; Wt 83.9 kg
[~2021-02-10 16:00] MED LIST changes: +ELIQ2.5T PO; +FISH1000 PO; +METO1TAB7 PO
--- NOTE | 2021-02-10 16:23 | REP ---
INDICATION: CHEST PAIN COMPARISON: 01/31/2021 TECHNIQUE: Portable AP view of the chest FINDINGS: The mediastinum and cardiac silhouette are stable. Lung jauregui demonstrate chronic appearing changes similar to prior examination. No definite acute focal consolidation, effusion or pneumothorax. IMPRESSION: Chronic appearing changes. No obvious focal consolidation or effusion. <Electronically signed by Billy Ruiz > 02/10/21 [id number]
[2021-02-10 17:10] LABS: HEMATOCRIT 31.2 % (42.0-52.0); HEMOGLOBIN 9.6 g/dl (13.5-17.5); MEAN CORPUSCULAR HEMOGLOBIN 29.2 pg (27.0-33.0); MEAN CORPUSCULAR HGB CONC 30.8 g/dl (32.0-36.5); MEAN CORPUSCULAR VOLUME 94.8 fl (80.0-96.0); PLATELET COUNT, AUTOMATED 270 10^3/uL (150-450); RED BLOOD COUNT 3.29 10^6/uL (4.30-6.10); WHITE BLOOD COUNT 5.9 10^3/uL (4.0-10.0)
[2021-02-10 17:18] LABS: INR 1.25; PROTHROMBIN TIME 15.9 SECONDS (12.5-14.3)
[2021-02-10 17:19] LABS: PARTIAL THROMBOPLASTIN TIME 33.7 SECONDS (24.2-38.5)
[2021-02-10 17:30] LABS: RSV AMPLIFICATION NEGATIVE (NEGATIVE)
[2021-02-10 17:35] LABS: ANISOCYTOSIS 1+; ATYPICAL LYMPH 2 % (0-5); EOSINOPHILS 1 % (0-3); HYPOCHROMASIA 1+; LYMPHOCYTES 19 % (16-44); METAMYELOCYTES 1 % (0-0); MONOCYTES 5 % (0-5); NEUTROPHILS 71 % (28-66); PLATELET ESTIMATE NORMAL (NORMAL)
[2021-02-10 17:36] LABS: POIKILOCYTOSIS 1+
[2021-02-10 17:40] LABS: ALT/SGPT 28 U/L (12-78); BILIRUBIN,DIRECT 0.3 MG/DL (0.0-0.2); BILIRUBIN,TOTAL 1.1 MG/DL (0.2-1.0); BLOOD UREA NITROGEN 20 MG/DL (7-18); CALCIUM LEVEL 8.8 MG/DL (8.8-10.2); CARBON DIOXIDE LEVEL 24 MEQ/L (21-32); CHLORIDE LEVEL 104 MEQ/L (98-107); CK-MB VALUE MASS 3.9 NG/ML (<3.6); CPK CREATINE PHOSPHOKINASE 68 U/L (39-308); CREATININE FOR GFR 0.95 MG/DL (0.70-1.30); GLOMERULAR FILTRATION RATE > 60.0 (>35); GLUCOSE, FASTING 93 MG/DL (70-100); LIPASE 209 U/L (73-393); MB/CK RELATIVE INDEX 5.74 (< OR =4); NT-PRO BNP 7159 PG/ML (<450); POTASSIUM SERUM 4.5 MEQ/L (3.5-5.1); SODIUM LEVEL 137 MEQ/L (136-145); THYROID STIMULATING HORMONE 0.957 uIU/ML (0.358-3.740); TROPONIN I 0.03 NG/ML (< 0.10)
[2021-02-10] MEDS ORDERED: METO1TAB7 PO (19:39)
[2021-02-10] MEDS ORDERED: ELIQ5TAB PO (19:39)
--- NOTE | 2021-02-10 19:51 | IPNPDOC ---
Text Note Date of Service The patient was seen on 02/10/21. NOTE TIME OF SERVICE 745 PM Mr Canada is an 85 yr old w a hx of NIDDM A fib, HTN, CAD/CABG, and anemia who presented w c/o dizziness for several months. He denies ringing in the ears, sensation of the ground moving beneath him, worsening of dizziness w sitting up, chest pain or dyspnea. He will be admitted for evaluation of dizziness possibly 2/2 dehydration vs Vertebral insufficiency and weakness. Plan: admit to MST / orthostats / IVF / if the dizziness doesn't resolve we will ask the day time team to check a CT of the head and or MRI of the brain to r/o vertebral insuficiency / we will also check phosphorus bc hypophosphatemia can cause weakness/ the day time team may consider PT consult rest per 's H&P VS,Chad, I+O VS, Chad, I+O Laboratory Tests 02/10/21 16:36 Vital Signs Date Time Temp Pulse Resp B/P (MAP) Pulse Ox O2 Delivery O2 Flow Rate FiO2 02/10/21 19:00 97.0 105 22 140/81 (100) 96 Room Air AMRY DE JESUS MD Feb 10, 2021 19:50
[2021-02-10] MEDS ORDERED: GLUCAGON INJ 1MG VIAL SC PRN (20:40)
[2021-02-10] MEDS ORDERED: GLUCOSE 4GM CHEW TABLET PO PRN (20:40)
[2021-02-10] MEDS ORDERED: DEXTROSE 50% 50 ML SYRINGE IV PRN (20:40)
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
[2021-02-10] MEDS ORDERED: HumaLOG INSULIN (NovoLOG) PER UNIT SC SCH (21:00)
[2021-02-10] MEDS: NS 1,000 ML IV SCH (21:00)
[2021-02-10 22:12] VITALS: BP 109/62
[2021-02-10 22:15] VITALS: BP 98/65
[2021-02-10] MEDS: GABAPENTIN 100 MG CAP PO SCH (22:58)
[2021-02-10] MEDS: APIXABAN 2.5 MG TAB (ELIQUIS) PO SCH (22:58)
[2021-02-11 05:43] VITALS: BP 125/84
[2021-02-11 07:01] LABS: HEMATOCRIT 31.4 % (42.0-52.0); HEMOGLOBIN 9.6 g/dl (13.5-17.5); MEAN CORPUSCULAR HEMOGLOBIN 28.7 pg (27.0-33.0); MEAN CORPUSCULAR HGB CONC 30.6 g/dl (32.0-36.5); PLATELET COUNT, AUTOMATED 293 10^3/uL (150-450); RED BLOOD COUNT 3.34 10^6/uL (4.30-6.10); WHITE BLOOD COUNT 6.1 10^3/uL (4.0-10.0)
[2021-02-11 07:27] LABS: BLOOD UREA NITROGEN 23 MG/DL (7-18); CALCIUM LEVEL 9.2 MG/DL (8.8-10.2); CARBON DIOXIDE LEVEL 27 MEQ/L (21-32); CHLORIDE LEVEL 105 MEQ/L (98-107); CREATININE FOR GFR 1.21 MG/DL (0.70-1.30); GLOMERULAR FILTRATION RATE > 60.0 (>35); GLUCOSE, FASTING 119 MG/DL (70-100); MAGNESIUM LEVEL 1.5 MG/DL (1.8-2.4); PHOSPHORUS LEVEL 4.6 MG/DL (2.5-4.9); POTASSIUM SERUM 4.4 MEQ/L (3.5-5.1); SODIUM LEVEL 139 MEQ/L (136-145)
[2021-02-11] MEDS: HumaLOG INSULIN (NovoLOG) PER UNIT SC SCH ×2 (07:30→13:13)
[2021-02-11] MEDS ORDERED: PANTOPRAZOLE 40MG TAB (PROTONIX) PO SCH (09:00)
[2021-02-11] MEDS ORDERED: ATORVASTATIN 20 MG TAB PO SCH (09:00)
[2021-02-11] MEDS ORDERED: TAMSULOSIN 0.4 MG CAP PO SCH (09:00)
[2021-02-11] MEDS ORDERED: SUCRALFATE 1 GM TAB PO SCH (09:00)
[2021-02-11] MEDS ORDERED: METOPROLOL SUCC (TopROL XL) 50MG **XL** TAB PO SCH (09:00)
[2021-02-11] MEDS ORDERED: ASPIRIN 81MG ENTERIC TABLET PO SCH (09:00)
[2021-02-11] MEDS ORDERED: FERROUS SULFATE 325MG TAB PO SCH (09:00)
[2021-02-11] MEDS: APIXABAN 2.5 MG TAB (ELIQUIS) PO SCH (10:09)
[2021-02-11 10:10] VITALS: BP 132/87
[2021-02-11] MEDS: GABAPENTIN 100 MG CAP PO SCH (10:10)
[2021-02-11] MEDS: NS 1,000 ML IV SCH (10:14)
--- NOTE | 2021-02-11 10:29 | DS.PDOC ---
Discharge Summary General Date of Admission Feb 10, 2021 at 16:01 Date of Discharge 02/11/2021 Discharge Summary PROCEDURES PERFORMED DURING STAY: [None]. ADMITTING DIAGNOSES / DISCHARGE DIAGNOSES: s/p Blurry vision s/p Weakness Chronic anemia Atrial fibrillation NIDDM2 Depression / Anxiety DLP DVT prophylaxis COMPLICATIONS/CHIEF COMPLAINT: Blurry vision HISTORY OF PRESENT ILLNESS: Patient is an 85-year-old male with a PMHx of A. fib, CAD s/p CABG, HTN, DM2, Chronic anemia, R AKA, who presented to the emergency room with what he reports today as blurriness of his vision. Patient reports that he does not feel weak and in fact has physical therapy at home that is working with him and his prosthetic. Patient was admitted to the hospital service under observation status for evaluation. This morning patient reports that the blurriness of his vision has improved. He denies any lightheadedness or dizziness. Denies any chest pain or shortness of breath. Has not experience any palpitations or cough. Denies nausea, vomiting, abdominal pain or diarrhea. Patient has worked with physical therapy and is able to transition from bed to wheelchair, which is his baseline. He reports that he is working with physical therapy as an outpatient and is getting used to his prosthetic device for his right [id number] amputation. HOSPITAL COURSE: s/p Blurry vision - Patient reports that he had blurred vision upon arrival that has now resolved - Will have outpatient follow up with Ophthalmology s/p Weakness - Physical without any focal deficits - Has cleared home safety evaluation - Will have outpatient follow up with PCP within 7 days - Will continue with home services on discharge Chronic anemia - Patient denies any bloody bowel movements - Neuro: Currently appears to be at baseline from prior discharge - c/w Iron supplementation Atrial fibrillation - c/w Metoprolol for rate control - c/w Eliquis for full anticoagulation NIDDM2 - c/w ISS Depression / Anxiety - c/w Duloxetine DLP - c/w Atorvastatin DVT prophylaxis - c/w Eliquis DISCHARGE MEDICATIONS: Please see below. ALLERGIES: Please see below. PHYSICAL EXAMINATION ON DISCHARGE: Vitals (See below) General: Lying in bed, no acute distress, comfortable, Awake / Alert HEENT: NC, AT CVS: +S1S2 Lungs: Fair air entry b/l, -w/r/r Abdomen: Soft, ND, NT Extremities: R AKA, Left leg without edema LABORATORY DATA: Please see below. IMAGING: CXR 02/10: Chronic appearing changes. No obvious focal consolidation or effusion. ACTIVITY: [As tolerated]. DISCHARGE PLAN: Follow-up with primary care provider within the next 7 days Remain compliant with treatment plan and medications Return to the ER if you experience any problems DISPOSITION: Home with services DISCHARGE CONDITION: [Stable]. TIME SPENT ON DISCHARGE: 30 minutes. Vital Signs/I&Os Vital Signs Date Time Temp Pulse Resp B/P (MAP) Pulse Ox O2 Delivery O2 Flow Rate FiO2 02/11/21 10:10 118 132/87 02/11/21 05:43 97.7 17 92 Room Air I&O- Last 24 Hours up to 6 AM 02/11/21 06:00 Intake Total 900 ml Output Total 650 ml Balance 250 ml Laboratory Data Labs 24H Laboratory Tests 2 02/10/21 16:29: Coronavirus (COVID-19)(PCR) NEGATIVE, Influenza Type A (RT-PCR) NEGATIVE, Influenza Type B (RT-PCR) NEGATIVE, Respiratory Syncytial Virus (PCR) NEGATIVE 02/10/21 16:36: Immature Granulocyte % (Auto) , Neutrophils (%) (Auto) , Nucleated Red Blood Cells % (auto) 0.0, Neutrophils 71H, Band Neutrophils 1, Lymphocytes (Manual) 19, Monocytes (Manual) 5, Eosinophils (Manual) 1, Metamyelocytes 1H, Atypical Lymphocytes 2, Hypochromasia 1+, Poikilocytosis 1+, Anisocytosis 1+, Platelet Estimate NORMAL, Prothrombin Time 15.9H, Prothromb Time International Ratio 1.25, Activated Partial Thromboplast Time 33.7, Anion Gap 9, Glomerular Filtrati on Rate > 60.0, Calcium Level 8.8, Total Bilirubin 1.1H, Direct Bilirubin 0.3H, Aspartate Amino Transf (AST/SGOT) 20, Alanine Aminotransferase (ALT/SGPT) 28, Alkaline Phosphatase 62, Total Creatine Kinase 68, Creatine Kinase MB 3.9H, Creatine Kinase MB Relative Index 5.74H, Troponin I 0.03, KI-Ozr-H-Type Natriuretic Peptide 7159H, Total Protein 6.0L, Albumin 3.0L, Albumin/Globulin Ratio 1.0, Lipase 209, Thyroid Stimulating Hormone (TSH) 0.957 02/10/21 18:16: Urine Color YELLOW, Urine Appearance CLEAR, Urine pH 5.0, Urine Specific [place] 1.013, Urine Protein 1+H, Urine Glucose (UA) NEGATIVE, Urine Ketones NEGATIVE, Urine Blood 1+H, Urine Nitrite NEGATIVE, Urine Bilirubin NEGATIVE, Urine Urobilinogen 0.2, Urine Leukocyte Esterase NEGATIVE, Urine WBC (Auto) 0, Urine RBC (Auto) 2, Urine Hyaline Casts (Auto) 0, Urine Bacteria (Auto) NEGATIVE, Urine Squamous Epithelial Cells 0, Urine Amorphous Sediment SMALLH, Urine Mucus (Auto) SMALL, Urine Sperm (Auto) 02/10/21 22:46: Bedside Glucose (Misc Panel) 137H 02/11/21 05:45: Nucleated Red Blood Cells % (auto) 0.0, Anion Gap 7L, Glomerular Filtration Rate > 60.0, Calcium Level 9.2, Phosphorus Level 4.6, Magnesium Level 1.5L CBC/BMP Laboratory Tests 02/10/21 16:36 02/11/21 05:45 FSBS Laboratory Tests Test 02/10/21 22:46 Range/Units Bedside Glucose (Misc Panel) 137 83-110 MG/DL Microbiology Microbiology 02/10/21 Blood Culture, Received Pending 02/10/21 Blood Culture, Received Pending Discharge Medications Scheduled Apixaban (Eliquis) 5 Mg Tablet, 2.5 MG PO BID, (Reported) Aspirin (Ecotrin) 81 Mg Tablet.dr, 81 MG PO DAILY, (Reported) Atorvastatin Calcium (Atorvastatin Calcium) 40 Mg Tablet, 40 MG PO DAILY, (Reported) Duloxetine Hcl (Duloxetine HCl) 30 Mg Capsule.dr, 30 MG PO DAILY, (Reported) Ferrous Sulfate (Ferrous Sulfate) 325 Mg Tablet.dr, 325 MG PO DAILY, (Reported) Gabapentin (Gabapentin) 100 Mg Capsule, 100 MG PO BID, (Reported) Glipizide (Glipizide) 5 Mg Tablet, 5 MG PO QHS, (Reported) Glipizide (Glipizide) 5 Mg Tablet, 7.5 MG PO QAM, (Reported) Linagliptin (Tradjenta) 5 Mg Tablet, 5 MG PO DAILY, (Reported) Metformin HCl (Metformin HCl) 500 Mg Tablet, 1,000 MG PO BID, (Reported) Metoprolol Succinate (Metoprolol Succinate) 50 Mg Tab.er.24h, 50 MG PO DAILY, (Reported) [place]-3 Fatty Acids/Fish Oil (Fish Oil 1,000 mg Capsule) 1 Each Capsule, 2,000 MG PO DAILY, (Reported) Pantoprazole Sodium (Pantoprazole Sodium) 40 Mg Tablet.dr, 40 MG PO DAILY, (Reported) Sucralfate (Sucralfate) 1 Gm Tablet, 1 GM PO DAILY, (Reported) Tamsulosin HCl (Flomax) 0.4 Mg Capsule, 0.4 MG PO DAILY, (Reported) Allergies Coded Allergies: No Known Allergies (Unverified , 04/01/20) DAVIE POPE MD Feb 11, 2021 10:29
[2021-02-11] MEDS ORDERED: MAG SULF 1GM/100ML (MAG RUN) 1 GM in IV 1 EA IV ONE (11:00)
--- NOTE | 2021-02-11 11:48 | ECGEPIP ---
[facility] - ED Test Date: 2021-02-10 Pat Name: LOC GUTIERREZ Department: Room: [place] [address] Gender: Male Wound Treatment Rn: BRAEDEN : 1935 Requested By: STANTON MACK Order Number: [id number] Reading MD: Johanna Muro Measurements Intervals [place] Rate: 88 P: [place]: QRS: -23 QRSD: 138 T: 0 QT: 440 QTc: 532 Interpretive Statements atrial flutter Right bundle branch block Inferior infarct , age undetermined increased rate 01/31/21 Electronically Signed on 02-11-2021 11:47:39 EDT by Johanna Muro
[2021-02-11 14:21] VITALS: BP 123/76
== END 2021-02-11 15:13 | disposition home health service (06) ==
LOC: EDBD 16:00 → M ED 16:00 → M ED INP 16:01 → ENRESERV 20:58 → M MSPAV 22:12
PROVIDERS: ADMIT Internal Medicine; ATTEND Internal Medicine
DX: H53.8 Other visual disturbances (principal); R53.1 Weakness; D64.9 Anemia, unspecified; I25.10 Atherosclerotic heart disease of native coronary artery without angina pectoris; Z98.61 Coronary angioplasty status; I48.91 Unspecified atrial fibrillation; E11.9 Type 2 diabetes mellitus without complications; F41.9 Anxiety disorder, unspecified; F32.9 Major depressive disorder, single episode, unspecified; E78.49 Other hyperlipidemia; Z79.01 Long term (current) use of anticoagulants; Z79.899 Other long term (current) drug therapy; Z79.82 Long term (current) use of aspirin; Z79.84 Long term (current) use of oral hypoglycemic drugs
CPT/HCPCS: 36415; 71045; 80048; 80076; 81001; 82550; 82553; 83690; 83735; 83880; 84100; 84443; 84484; 85025; 85027; 85610; 85730; 86850; 86900; 86901; 86920; 87040; 87631; 93005; 93041; 94760; 96360; 96361; 97161; 99285; G0378; J3475

== ENCOUNTER → 2021-03-26 | Outpatient (REF) | payer MEDICARE, OTHER | LOC: M SFHCLERA 16:21 | PROVIDERS: ATTEND Nurse Practitioner Family | DX: R21 Rash and other nonspecific skin eruption (principal) | CPT/HCPCS: 87070; G0463 ==

== ENCOUNTER → 2021-03-29 | Outpatient (REF) | payer MEDICARE, OTHER ==
[~2021-03-29] MED LIST changes: -LISI2.5T2 PO; +LISI2.5T9 PO
== END ==
LOC: M LAB REF 18:06
PROVIDERS: ATTEND Dermatology
DX: L29.9 Pruritus, unspecified (principal)
CPT/HCPCS: 11104; 11105; 87070; 87077; 87186; 87205; 88300; G0463

== ENCOUNTER → 2021-03-29 | Outpatient (REF) | payer MEDICARE, OTHER | LOC: M LAB REF 14:18 | PROVIDERS: ATTEND Dermatology | DX: R21 Rash and other nonspecific skin eruption (principal) ==

== ENCOUNTER → 2021-04-10 | Outpatient (CLI) | payer MEDICARE, OTHER ==
[2021-04-10 15:01] LABS: HEMATOCRIT 31.7 % (42.0-52.0); HEMOGLOBIN 9.7 g/dl (13.5-17.5); MEAN CORPUSCULAR HEMOGLOBIN 28.7 pg (27.0-33.0); MEAN CORPUSCULAR HGB CONC 30.6 g/dl (32.0-36.5); MEAN CORPUSCULAR VOLUME 93.8 fl (80.0-96.0); PLATELET COUNT, AUTOMATED 242 10^3/uL (150-450); RED BLOOD COUNT 3.38 10^6/uL (4.30-6.10); WHITE BLOOD COUNT 5.9 10^3/uL (4.0-10.0)
[2021-04-10 15:26] LABS: ALBUMIN 3.4 GM/DL (3.2-5.2); ALT/SGPT 23 U/L (12-78); BLOOD UREA NITROGEN 31 MG/DL (7-18); CALCIUM LEVEL 8.3 MG/DL (8.8-10.2); CARBON DIOXIDE LEVEL 29 MEQ/L (21-32); CHLORIDE LEVEL 104 MEQ/L (98-107); CREATININE FOR GFR 1.36 MG/DL (0.70-1.30); GLUCOSE, FASTING 105 MG/DL (70-100); POTASSIUM SERUM 4.9 MEQ/L (3.5-5.1); SODIUM LEVEL 136 MEQ/L (136-145); TOTAL PROTEIN 6.7 GM/DL (6.4-8.2)
[2021-04-10 15:46] LABS: HEPATITIS B SURFACE ANTIGEN NEGATIVE (NEGATIVE)
[2021-04-10 16:13] LABS: HEPATITIS B CORE ANTIBODY IGM NEGATIVE (NEGATIVE); HEPATITIS C VIRUS ABY INDEX < 0.0 INDEX (<0.8)
[2021-04-10 16:15] LABS: HIV 1&2 SCREEN CENTAUR NEGATIVE (NEGATIVE)
[2021-04-10 16:16] LABS: HEPATITIS A ANTIBODY IGM NEGATIVE (NEGATIVE)
[2021-04-10 16:29] LABS: ANISOCYTOSIS 2+; ATYPICAL LYMPH 6 % (0-5); BASOPHILS 1 % (0-1); EOSINOPHILS 2 % (0-3); HYPOCHROMASIA 1+; LYMPHOCYTES 22 % (16-44); METAMYELOCYTES 1 % (0-0); MONOCYTES 8 % (0-5); MYELOCYTES 2 % (0-0); NEUTROPHILS 57 % (28-66); PLATELET ESTIMATE NORMAL (NORMAL); POIKILOCYTOSIS 1+; PROMYELOCYTES 1 % (0-0)
== END ==
LOC: M LAB 14:06
PROVIDERS: ATTEND Dermatology
DX: L12.0 Bullous pemphigoid (principal)
CPT/HCPCS: 36415; 80053; 85025; 86705; 86709; 86803; 87340; 87389; G0463

== ENCOUNTER → 2021-04-10 | Outpatient (REF) | payer MEDICARE, OTHER ==
[~2021-04-10] MED LIST changes: +LISI2.5T2 PO; -LISI2.5T9 PO
== END ==
LOC: M SFHCDERM 13:32
PROVIDERS: ATTEND Dermatology
DX: L12.0 Bullous pemphigoid (principal)

== ENCOUNTER → 2021-06-08 | Outpatient (CLI) | payer MEDICARE, OTHER ==
[~2021-06-08] MED LIST changes: -LISI2.5T2 PO; +LISI2.5T9 PO
== END ==
LOC: M LABSMTC 12:26
PROVIDERS: ATTEND Internal Medicine Cardiovascular Disease
DX: Z01.812 Encounter for preprocedural laboratory examination (principal); Z20.822 Contact with and (suspected) exposure to COVID-19

== ENCOUNTER → 2021-07-07 | Outpatient (CLI) | payer MEDICARE, OTHER | LOC: M LABSMTC 11:53 | PROVIDERS: ATTEND Nurse Practitioner Family | DX: Z01.812 Encounter for preprocedural laboratory examination (principal); Z20.822 Contact with and (suspected) exposure to COVID-19 ==

== ENCOUNTER → 2021-08-22 | Outpatient (CLI) | payer MEDICARE, OTHER | LOC: M LABSMTC 11:05 | PROVIDERS: ATTEND Internal Medicine Cardiovascular Disease | DX: Z01.812 Encounter for preprocedural laboratory examination (principal); Z20.822 Contact with and (suspected) exposure to COVID-19 ==

== ENCOUNTER → 2021-08-30 | Outpatient (CLI) | payer MEDICARE, OTHER | LOC: M LABSMTC 10:42 | PROVIDERS: ATTEND Internal Medicine Cardiovascular Disease | DX: Z01.812 Encounter for preprocedural laboratory examination (principal); Z20.822 Contact with and (suspected) exposure to COVID-19 ==

== ENCOUNTER → 2021-09-20 | Outpatient (CLI) | payer MEDICARE, OTHER ==
[~2021-09-20] MED LIST changes: +ACET-683 PO; +ASPI81CH2 PO; +FERR1TAB8 PO; +FOLI1TAB11 PO; +LIDO5TD TD; +METF-839 PO; +MIRA1POW3 PO; +SENN-52 PO
[2021-09-20 14:30] LABS: HEMATOCRIT 35.1 % (42.0-52.0); HEMOGLOBIN 10.8 g/dl (13.5-17.5); MEAN CORPUSCULAR HEMOGLOBIN 29.3 pg (27.0-33.0); MEAN CORPUSCULAR HGB CONC 30.8 g/dl (32.0-36.5); MEAN CORPUSCULAR VOLUME 95.1 fl (80.0-96.0); PLATELET COUNT, AUTOMATED 265 10^3/uL (150-450); RED BLOOD COUNT 3.69 10^6/uL (4.30-6.10)
[2021-09-20 14:54] LABS: CREATININE FOR GFR 1.27 MG/DL (0.70-1.30); GLOMERULAR FILTRATION RATE 57.4 (>35)
[2021-09-20 15:18] LABS: EOSINOPHILS 3 % (0-3); LYMPHOCYTES 27 % (16-44); MONOCYTES 6 % (0-5); NEUTROPHILS 64 % (28-66)
[2021-09-20 15:25] LABS: PLATELET ESTIMATE NORMAL (NORMAL)
== END ==
LOC: M LAB 13:55
PROVIDERS: ATTEND Internal Medicine Gastroenterology
DX: D50.9 Iron deficiency anemia, unspecified (principal)

== ENCOUNTER → 2021-09-27 | Outpatient (CLI) | payer MEDICARE, OTHER ==
[~2021-09-27] MED LIST changes: -LISI-898; +LISI5TAB11
[2021-09-27 16:05] LABS: HEMOGLOBIN A1c 10.5 %
== END ==
LOC: M LAB 13:23
PROVIDERS: ATTEND Student in an Organized Health Care Education/Training Program
DX: E11.21 Type 2 diabetes mellitus with diabetic nephropathy (principal)

== ENCOUNTER → 2021-09-27 | Outpatient (CLI) | payer MEDICARE, OTHER ==
[~2021-09-27] MED LIST changes: +GLUCAGON INJ 1MG VIAL As Ordered ONE; +ISOVUE-370 76% 100ML VIAL As Ordered ONE; +NEULUMEX 0.1% SUSPENSION 450ML BOTTLE (FORMERLY VOLUMEN) As Ordered ONE
== END ==
LOC: M RAD 13:18
PROVIDERS: ATTEND Internal Medicine Gastroenterology
DX: R19.5 Other fecal abnormalities (principal); D50.9 Iron deficiency anemia, unspecified; R91.8 Other nonspecific abnormal finding of lung field; K80.20 Calculus of gallbladder without cholecystitis without obstruction; N20.0 Calculus of kidney; N28.1 Cyst of kidney, acquired; K57.90 Diverticulosis of intestine, part unspecified, without perforation or abscess without bleeding; M51.36 Other intervertebral disc degeneration, lumbar region; M51.26 Other intervertebral disc displacement, lumbar region; K40.20 Bilateral inguinal hernia, without obstruction or gangrene, not specified as recurrent; E11.21 Type 2 diabetes mellitus with diabetic nephropathy
CPT/HCPCS: 36415; 74177; 83036; J1610; Q9967

== ENCOUNTER 2021-10-11 13:14 | Inpatient (IN) | payer MEDICARE, OTHER ==
[~2021-10-11] VITALS: Ht 180.3 cm; Wt 81.5 kg
[~2021-10-11 13:14] MED LIST changes: -ACET-683 PO; -ASPI81CH2 PO; -FERR1TAB8 PO; -FOLI1TAB11 PO; -GLUCAGON INJ 1MG VIAL As Ordered ONE; -ISOVUE-370 76% 100ML VIAL As Ordered ONE; -LIDO5TD TD; -METF-839 PO; -MIRA1POW3 PO; -NEULUMEX 0.1% SUSPENSION 450ML BOTTLE (FORMERLY VOLUMEN) As Ordered ONE; -SENN-52 PO
[2021-10-11 15:13] LABS: HEMATOCRIT 33.1 % (42.0-52.0); HEMOGLOBIN 10.4 g/dl (13.5-17.5); MEAN CORPUSCULAR HEMOGLOBIN 29.7 pg (27.0-33.0); MEAN CORPUSCULAR HGB CONC 31.4 g/dl (32.0-36.5); MEAN CORPUSCULAR VOLUME 94.6 fl (80.0-96.0); PLATELET COUNT, AUTOMATED 275 10^3/uL (150-450)
[2021-10-11 15:46] LABS: BASOPHILS 3 % (0-1); LYMPHOCYTES 19 % (16-44); MONOCYTES 7 % (0-5); NEUTROPHILS 70 % (28-66); PLATELET ESTIMATE NORMAL (NORMAL)
[2021-10-11 15:47] LABS: ANISOCYTOSIS 1+; HYPOCHROMASIA 1+; TEAR DROP CELLS 1+
[2021-10-11 16:00] LABS: ALBUMIN 3.1 GM/DL (3.2-5.2); ALT/SGPT 21 U/L (12-78); BILIRUBIN,DIRECT 0.3 MG/DL (0.0-0.2); BILIRUBIN,TOTAL 1.2 MG/DL (0.2-1.0); BLOOD UREA NITROGEN 34 MG/DL (7-18); CALCIUM LEVEL 8.8 MG/DL (8.8-10.2); CARBON DIOXIDE LEVEL 23 MEQ/L (21-32); CHLORIDE LEVEL 102 MEQ/L (98-107); CREATININE FOR GFR 1.17 MG/DL (0.70-1.30); FREE T4 1.02 NG/DL (0.76-1.46); GLOMERULAR FILTRATION RATE > 60.0 (>35); GLUCOSE, FASTING 163 MG/DL (70-100); LIPASE 297 U/L (73-393); NT-PRO BNP 887 PG/ML (<450); POTASSIUM SERUM 3.9 MEQ/L (3.5-5.1); SODIUM LEVEL 134 MEQ/L (136-145); TOTAL PROTEIN 7.2 GM/DL (6.4-8.2)
[2021-10-11 17:06] LABS: RSV AMPLIFICATION NEGATIVE (NEGATIVE)
[2021-10-11] MEDS ORDERED: ISOVUE-370 76% 100ML VIAL As Ordered ONE (19:18)
[2021-10-11] MEDS ORDERED: ELIQ5TAB PO (19:19)
[2021-10-11] MEDS ORDERED: GLIP5TAB8 PO (19:26)
[2021-10-11] MEDS ORDERED: METO50TA7 PO (19:26)
[2021-10-11] MEDS ORDERED: GABA-1171 PO ×2 (19:26)
[2021-10-11] MEDS ORDERED: FERR1TAB8 PO (19:26)
[2021-10-11] MEDS ORDERED: ASPI81CH2 PO (19:26)
[2021-10-11] MEDS ORDERED: METF-839 PO (19:26)
[2021-10-11] MEDS ORDERED: HOME MED LIST COMPLETE! XX SCH (19:30)
[2021-10-11 22:02] VITALS: BP 135/68
[2021-10-11] MEDS: SUCRALFATE 1 GM TAB PO SCH (22:30)
[2021-10-11] MEDS: APIXABAN 5 MG TAB (ELIQUIS) PO SCH (22:30)
[2021-10-11] MEDS: ASPIRIN 81 MG CHEW TABLET PO SCH (22:30)
[2021-10-11] MEDS: GABAPENTIN 300 MG CAP PO SCH (22:30)
[2021-10-12] MEDS ORDERED: GLUCAGON INJ 1MG VIAL SC PRN (01:35)
[2021-10-12] MEDS ORDERED: DEXTROSE 50% 50 ML SYRINGE IV PRN (01:35)
[2021-10-12] MEDS ORDERED: GLUCOSE 4GM CHEW TABLET PO PRN (01:35)
[2021-10-12 06:00] VITALS: BP 108/58
[2021-10-12 06:17] LABS: HEMATOCRIT 29.6 % (42.0-52.0); HEMOGLOBIN 9.4 g/dl (13.5-17.5); MEAN CORPUSCULAR HEMOGLOBIN 29.8 pg (27.0-33.0); MEAN CORPUSCULAR HGB CONC 31.8 g/dl (32.0-36.5); PLATELET COUNT, AUTOMATED 237 10^3/uL (150-450); RED BLOOD COUNT 3.15 10^6/uL (4.30-6.10); WHITE BLOOD COUNT 6.2 10^3/uL (4.0-10.0)
[2021-10-12 06:41] LABS: BLOOD UREA NITROGEN 29 MG/DL (7-18); CALCIUM LEVEL 8.6 MG/DL (8.8-10.2); CARBON DIOXIDE LEVEL 27 MEQ/L (21-32); CHLORIDE LEVEL 98 MEQ/L (98-107); CREATININE FOR GFR 0.99 MG/DL (0.70-1.30); GLOMERULAR FILTRATION RATE > 60.0 (>35); GLUCOSE, FASTING 207 MG/DL (70-100); MAGNESIUM LEVEL 1.9 MG/DL (1.8-2.4); POTASSIUM SERUM 3.7 MEQ/L (3.5-5.1); SODIUM LEVEL 133 MEQ/L (136-145)
[2021-10-12] MEDS: HumaLOG INSULIN (NovoLOG) PER UNIT SC SCH ×4 (07:30→21:26)
[2021-10-12] MEDS: ATORVASTATIN 20 MG TAB PO SCH (10:23)
[2021-10-12] MEDS: DULoxetine 30MG CAPSULE (CYMBALTA) PO SCH (10:23)
[2021-10-12] MEDS: FERROUS SULFATE 325MG TAB PO SCH (10:23)
[2021-10-12] MEDS: GABAPENTIN 100 MG CAP PO SCH (10:23)
[2021-10-12] MEDS: TAMSULOSIN 0.4 MG CAP PO SCH (10:24)
[2021-10-12] MEDS: PANTOPRAZOLE 40MG TAB (PROTONIX) PO SCH (10:24)
[2021-10-12] MEDS: METOPROLOL SUCC (TopROL XL) 50MG **XL** TAB PO SCH (10:30)
[2021-10-12] MEDS: SUCRALFATE 1 GM TAB PO SCH ×3 (10:32→21:25)
[2021-10-12 14:00] VITALS: BP 104/61
[2021-10-12] MEDS: ACETAMINOPHEN TAB 650MG DOSE (2X325MG) PO PRN ×2 (15:24→21:25)
[2021-10-12] MEDS: LIDOCAINE 5% (LIDODERM) PATCH TD SCH (17:24)
[2021-10-12] MEDS: ASPIRIN 81 MG CHEW TABLET PO SCH (21:25)
[2021-10-12] MEDS: **NOTE PATIENT COMMENT** MISC XX SCH (21:25)
[2021-10-12] MEDS: GABAPENTIN 300 MG CAP PO SCH (21:25)
[2021-10-12 22:00] VITALS: BP 111/59
[2021-10-13 06:00] VITALS: BP 132/79
[2021-10-13] MEDS: LIDOCAINE 5% (LIDODERM) PATCH TD SCH (08:40)
[2021-10-13] MEDS: DULoxetine 30MG CAPSULE (CYMBALTA) PO SCH (08:41)
[2021-10-13] MEDS: ATORVASTATIN 20 MG TAB PO SCH (08:41)
[2021-10-13] MEDS: HumaLOG INSULIN (NovoLOG) PER UNIT SC SCH ×4 (08:41→21:31)
[2021-10-13] MEDS: METOPROLOL SUCC (TopROL XL) 50MG **XL** TAB PO SCH (08:43)
[2021-10-13] MEDS: GABAPENTIN 100 MG CAP PO SCH (08:43)
[2021-10-13] MEDS: PANTOPRAZOLE 40MG TAB (PROTONIX) PO SCH (08:44)
[2021-10-13] MEDS: SUCRALFATE 1 GM TAB PO SCH ×3 (08:44→21:31)
[2021-10-13] MEDS: TAMSULOSIN 0.4 MG CAP PO SCH (08:44)
[2021-10-13 14:00] VITALS: BP 111/61
[2021-10-13] MEDS: GABAPENTIN 300 MG CAP PO SCH (21:31)
[2021-10-13] MEDS: ASPIRIN 81 MG CHEW TABLET PO SCH (21:31)
[2021-10-13] MEDS: **NOTE PATIENT COMMENT** MISC XX SCH (21:31)
[2021-10-13 22:00] VITALS: BP 113/61
[2021-10-14 06:00] VITALS: BP 110/59
[2021-10-14] MEDS: ATORVASTATIN 20 MG TAB PO SCH (08:33)
[2021-10-14] MEDS: FERROUS SULFATE 325MG TAB PO SCH (08:33)
[2021-10-14] MEDS: GABAPENTIN 100 MG CAP PO SCH (08:33)
[2021-10-14] MEDS: TAMSULOSIN 0.4 MG CAP PO SCH (08:33)
[2021-10-14] MEDS: DULoxetine 30MG CAPSULE (CYMBALTA) PO SCH (08:33)
[2021-10-14] MEDS: HumaLOG INSULIN (NovoLOG) PER UNIT SC SCH ×4 (08:33→22:22)
[2021-10-14] MEDS: PANTOPRAZOLE 40MG TAB (PROTONIX) PO SCH (08:33)
[2021-10-14] MEDS: SUCRALFATE 1 GM TAB PO SCH ×3 (08:33→22:44)
[2021-10-14] MEDS: METOPROLOL SUCC (TopROL XL) 50MG **XL** TAB PO SCH (08:34)
[2021-10-14] MEDS: LIDOCAINE 5% (LIDODERM) PATCH TD SCH (08:35)
[2021-10-14] MEDS: APIXABAN 5 MG TAB (ELIQUIS) PO SCH (09:52)
[2021-10-14 10:58] LABS: HEMOGLOBIN 8.5 g/dl (13.5-17.5); MEAN CORPUSCULAR HEMOGLOBIN 29.7 pg (27.0-33.0); MEAN CORPUSCULAR HGB CONC 31.5 g/dl (32.0-36.5); MEAN CORPUSCULAR VOLUME 94.4 fl (80.0-96.0); PLATELET COUNT, AUTOMATED 213 10^3/uL (150-450); RED BLOOD COUNT 2.86 10^6/uL (4.30-6.10); WHITE BLOOD COUNT 4.7 10^3/uL (4.0-10.0)
[2021-10-14 11:11] LABS: BLOOD UREA NITROGEN 22 MG/DL (7-18); CALCIUM LEVEL 8.2 MG/DL (8.8-10.2); CARBON DIOXIDE LEVEL 29 MEQ/L (21-32); CHLORIDE LEVEL 99 MEQ/L (98-107); CREATININE FOR GFR 1.03 MG/DL (0.70-1.30); GLOMERULAR FILTRATION RATE > 60.0 (>35); GLUCOSE, FASTING 280 MG/DL (70-100); POTASSIUM SERUM 4.1 MEQ/L (3.5-5.1); SODIUM LEVEL 134 MEQ/L (136-145)
[2021-10-14 11:32] LABS: ATYPICAL LYMPH 1 % (0-5); EOSINOPHILS 1 % (0-3); LYMPHOCYTES 19 % (16-44); MONOCYTES 6 % (0-5); NEUTROPHILS 73 % (28-66); PLATELET ESTIMATE NORMAL (NORMAL); SCHISTOCYTES 1+; TEAR DROP CELLS 1+
[2021-10-14 11:33] LABS: OVALOCYTES 1+
[2021-10-14 12:50] LABS: FERRITIN 91 NG/ML (26-388); IRON (FE) 48 UG/DL (65-175); PERCENT SATURATION 19.6 % (19.7-50.0); TOTAL IRON BINDING CAPACITY 245 UG/DL (250-450)
[2021-10-14 14:00] VITALS: BP 110/60
[2021-10-14 22:00] VITALS: BP 147/84
[2021-10-14] MEDS: glipiZIDE (GLUCOTROL) 5 MG TAB PO SCH (22:44)
[2021-10-14] MEDS: ASPIRIN 81 MG CHEW TABLET PO SCH (22:44)
[2021-10-14] MEDS: GABAPENTIN 300 MG CAP PO SCH (22:44)
[2021-10-14] MEDS: **NOTE PATIENT COMMENT** MISC XX SCH (22:45)
[2021-10-15 06:00] VITALS: BP 138/78
[2021-10-15 06:19] LABS: HEMATOCRIT 28.4 % (42.0-52.0); MEAN CORPUSCULAR HEMOGLOBIN 29.9 pg (27.0-33.0); MEAN CORPUSCULAR HGB CONC 31.7 g/dl (32.0-36.5); MEAN CORPUSCULAR VOLUME 94.4 fl (80.0-96.0); PLATELET COUNT, AUTOMATED 238 10^3/uL (150-450); RED BLOOD COUNT 3.01 10^6/uL (4.30-6.10); WHITE BLOOD COUNT 5.7 10^3/uL (4.0-10.0)
[2021-10-15 06:41] LABS: BLOOD UREA NITROGEN 23 MG/DL (7-18); CALCIUM LEVEL 8.5 MG/DL (8.8-10.2); CARBON DIOXIDE LEVEL 29 MEQ/L (21-32); CHLORIDE LEVEL 102 MEQ/L (98-107); CREATININE FOR GFR 1.01 MG/DL (0.70-1.30); GLOMERULAR FILTRATION RATE > 60.0 (>35); GLUCOSE, FASTING 152 MG/DL (70-100); POTASSIUM SERUM 4.2 MEQ/L (3.5-5.1); SODIUM LEVEL 137 MEQ/L (136-145)
[2021-10-15 07:23] LABS: ATYPICAL LYMPH 2 % (0-5); LYMPHOCYTES 15 % (16-44); MONOCYTES 11 % (0-5); NEUTROPHILS 70 % (28-66)
[2021-10-15 07:24] LABS: PLATELET ESTIMATE NORMAL (NORMAL)
[2021-10-15] MEDS: HumaLOG INSULIN (NovoLOG) PER UNIT SC SCH ×4 (09:28→22:11)
[2021-10-15] MEDS: PANTOPRAZOLE 40MG TAB (PROTONIX) PO SCH (09:29)
[2021-10-15] MEDS: LIDOCAINE 5% (LIDODERM) PATCH TD SCH (09:29)
[2021-10-15] MEDS: TAMSULOSIN 0.4 MG CAP PO SCH (09:29)
[2021-10-15] MEDS: SUCRALFATE 1 GM TAB PO SCH ×3 (09:29→22:11)
[2021-10-15] MEDS: DULoxetine 30MG CAPSULE (CYMBALTA) PO SCH (09:30)
[2021-10-15] MEDS: ATORVASTATIN 20 MG TAB PO SCH (09:30)
[2021-10-15] MEDS: METOPROLOL SUCC (TopROL XL) 50MG **XL** TAB PO SCH (09:30)
[2021-10-15] MEDS: GABAPENTIN 100 MG CAP PO SCH (09:30)
[2021-10-15] MEDS: glipiZIDE (GLUCOTROL) 5 MG TAB PO SCH ×2 (09:38→22:11)
[2021-10-15 11:23] LABS: FOLATE 4.2 NG/ML (>5.4)
[2021-10-15 14:00] VITALS: BP 119/59
[2021-10-15] MEDS: ACETAMINOPHEN TAB 650MG DOSE (2X325MG) PO PRN (19:19)
[2021-10-15 20:00] VITALS: BP 126/65
[2021-10-15] MEDS: GABAPENTIN 300 MG CAP PO SCH (22:11)
[2021-10-15] MEDS: ASPIRIN 81 MG CHEW TABLET PO SCH (22:11)
[2021-10-15] MEDS: **NOTE PATIENT COMMENT** MISC XX SCH (22:12)
[2021-10-16 06:00] VITALS: BP 135/85
[2021-10-16 06:25] LABS: HEMATOCRIT 27.1 % (42.0-52.0); HEMOGLOBIN 8.5 g/dl (13.5-17.5); MEAN CORPUSCULAR HEMOGLOBIN 29.6 pg (27.0-33.0); MEAN CORPUSCULAR HGB CONC 31.4 g/dl (32.0-36.5); MEAN CORPUSCULAR VOLUME 94.4 fl (80.0-96.0); PLATELET COUNT, AUTOMATED 229 10^3/uL (150-450); RED BLOOD COUNT 2.87 10^6/uL (4.30-6.10); WHITE BLOOD COUNT 5.1 10^3/uL (4.0-10.0)
[2021-10-16 06:53] LABS: BLOOD UREA NITROGEN 24 MG/DL (7-18); CALCIUM LEVEL 8.6 MG/DL (8.8-10.2); CARBON DIOXIDE LEVEL 28 MEQ/L (21-32); CHLORIDE LEVEL 102 MEQ/L (98-107); CREATININE FOR GFR 0.94 MG/DL (0.70-1.30); GLOMERULAR FILTRATION RATE > 60.0 (>35); GLUCOSE, FASTING 243 MG/DL (70-100); POTASSIUM SERUM 4.5 MEQ/L (3.5-5.1); SODIUM LEVEL 136 MEQ/L (136-145)
[2021-10-16 06:55] LABS: EOSINOPHILS 3 % (0-3); LYMPHOCYTES 17 % (16-44); MONOCYTES 4 % (0-5); NEUTROPHILS 76 % (28-66); PLATELET ESTIMATE NORMAL (NORMAL)
[2021-10-16] MEDS: HumaLOG INSULIN (NovoLOG) PER UNIT SC SCH ×4 (07:30→20:13)
[2021-10-16] MEDS ORDERED: traMADol 50 MG TAB PO PRN (09:35)
[2021-10-16] MEDS: LIDOCAINE 5% (LIDODERM) PATCH TD SCH (11:10)
[2021-10-16] MEDS: MIRALAX *UNIT DOSE* 17GM PACKET PO SCH (11:10)
[2021-10-16] MEDS: PANTOPRAZOLE 40MG TAB (PROTONIX) PO SCH (11:34)
[2021-10-16] MEDS: METOPROLOL SUCC (TopROL XL) 50MG **XL** TAB PO SCH (11:34)
[2021-10-16] MEDS: GABAPENTIN 100 MG CAP PO SCH (11:34)
[2021-10-16] MEDS: FERROUS SULFATE 325MG TAB PO SCH (11:34)
[2021-10-16] MEDS: SENOKOT S TAB PO SCH ×2 (11:34→20:21)
[2021-10-16] MEDS: SUCRALFATE 1 GM TAB PO SCH ×3 (11:35→20:21)
[2021-10-16] MEDS: ACETAMINOPHEN 500 MG TAB PO SCH ×2 (11:35→20:21)
[2021-10-16] MEDS: DULoxetine 30MG CAPSULE (CYMBALTA) PO SCH (11:35)
[2021-10-16] MEDS: ATORVASTATIN 20 MG TAB PO SCH (11:35)
[2021-10-16] MEDS: TAMSULOSIN 0.4 MG CAP PO SCH (11:35)
[2021-10-16] MEDS: glipiZIDE (GLUCOTROL) 5 MG TAB PO SCH ×2 (11:36→20:24)
[2021-10-16] MEDS: FOLIC ACID 1 MG TAB PO SCH (11:36)
[2021-10-16] MEDS: LEVEMIR (INSULIN DETEMIR) 1 UNITS/0.01ML SC SCH (13:34)
[2021-10-16 14:00] VITALS: BP 132/80
[2021-10-16] MEDS: GABAPENTIN 300 MG CAP PO SCH (20:21)
[2021-10-16] MEDS: ASPIRIN 81 MG CHEW TABLET PO SCH (20:21)
[2021-10-16] MEDS: **NOTE PATIENT COMMENT** MISC XX SCH (20:24)
[2021-10-16 22:00] VITALS: BP 116/61
[2021-10-17 06:00] VITALS: BP 116/62
[2021-10-17 06:05] LABS: HEMATOCRIT 29.2 % (42.0-52.0); MEAN CORPUSCULAR HEMOGLOBIN 29.7 pg (27.0-33.0); MEAN CORPUSCULAR HGB CONC 30.8 g/dl (32.0-36.5); MEAN CORPUSCULAR VOLUME 96.4 fl (80.0-96.0); PLATELET COUNT, AUTOMATED 258 10^3/uL (150-450); RED BLOOD COUNT 3.03 10^6/uL (4.30-6.10); WHITE BLOOD COUNT 4.9 10^3/uL (4.0-10.0)
[2021-10-17 06:26] LABS: BLOOD UREA NITROGEN 26 MG/DL (7-18); CALCIUM LEVEL 8.6 MG/DL (8.8-10.2); CARBON DIOXIDE LEVEL 29 MEQ/L (21-32); CHLORIDE LEVEL 101 MEQ/L (98-107); CREATININE FOR GFR 0.98 MG/DL (0.70-1.30); GLOMERULAR FILTRATION RATE > 60.0 (>35); GLUCOSE, FASTING 209 MG/DL (70-100); POTASSIUM SERUM 4.6 MEQ/L (3.5-5.1); SODIUM LEVEL 135 MEQ/L (136-145)
[2021-10-17 07:06] LABS: ATYPICAL LYMPH 2 % (0-5); EOSINOPHILS 3 % (0-3); LYMPHOCYTES 21 % (16-44); MONOCYTES 7 % (0-5); NEUTROPHILS 67 % (28-66); PLATELET ESTIMATE NORMAL (NORMAL)
[2021-10-17] MEDS: MIRALAX *UNIT DOSE* 17GM PACKET PO SCH (08:49)
[2021-10-17] MEDS: LIDOCAINE 5% (LIDODERM) PATCH TD SCH (08:49)
[2021-10-17 08:50] VITALS: BP 116/62
[2021-10-17] MEDS: TAMSULOSIN 0.4 MG CAP PO SCH (08:50)
[2021-10-17] MEDS: ATORVASTATIN 20 MG TAB PO SCH (08:50)
[2021-10-17] MEDS: ACETAMINOPHEN 500 MG TAB PO SCH (08:50)
[2021-10-17] MEDS: SUCRALFATE 1 GM TAB PO SCH (08:50)
[2021-10-17] MEDS: SENOKOT S TAB PO SCH (08:50)
[2021-10-17] MEDS: FOLIC ACID 1 MG TAB PO SCH (08:50)
[2021-10-17] MEDS: METOPROLOL SUCC (TopROL XL) 50MG **XL** TAB PO SCH (08:50)
[2021-10-17] MEDS: PANTOPRAZOLE 40MG TAB (PROTONIX) PO SCH (08:51)
[2021-10-17] MEDS: DULoxetine 30MG CAPSULE (CYMBALTA) PO SCH (08:51)
[2021-10-17] MEDS: GABAPENTIN 100 MG CAP PO SCH (08:51)
[2021-10-17] MEDS: HumaLOG INSULIN (NovoLOG) PER UNIT SC SCH ×2 (08:51→12:18)
[2021-10-17] MEDS: LEVEMIR (INSULIN DETEMIR) 1 UNITS/0.01ML SC SCH (08:52)
[2021-10-17] MEDS: glipiZIDE (GLUCOTROL) 5 MG TAB PO SCH (08:54)
[2021-10-17] MEDS ORDERED: SENN-52 PO (10:40)
[2021-10-17] MEDS ORDERED: TRAM50TA2 PO (10:40)
[2021-10-17] MEDS ORDERED: PANT40TA29 PO (10:40)
[2021-10-17] MEDS ORDERED: LIDO5TD TD (10:40)
[2021-10-17] MEDS ORDERED: MIRA1POW3 PO (10:40)
[2021-10-17] MEDS ORDERED: FOLI1TAB11 PO (10:40)
[2021-10-17] MEDS ORDERED: METO1TAB87 PO (10:40)
[2021-10-17] MEDS ORDERED: ACET-683 PO (10:40)
[2021-10-17] MEDS ORDERED: FLOM0.4C39 PO (10:40)
[2021-10-17 14:00] VITALS: BP 116/62
[2021-10-17 15:27] VITALS: BP 102/53
== END 2021-10-17 15:49 | DRG 813 ==
LOC: M ED 13:14 → M ED INP 13:15 → ENRESERV 19:40 → M MSPAV 22:01 → OBSVTOIN 10-12 12:06
PROVIDERS: ADMIT Internal Medicine; ATTEND Internal Medicine Nephrology
DX: D68.32 Hemorrhagic disorder due to extrinsic circulating anticoagulants (principal); M79.81 Nontraumatic hematoma of soft tissue; R54 Age-related physical debility; I10 Essential (primary) hypertension; R26.89 Other abnormalities of gait and mobility; E11.40 Type 2 diabetes mellitus with diabetic neuropathy, unspecified; I25.10 Atherosclerotic heart disease of native coronary artery without angina pectoris; Z95.1 Presence of aortocoronary bypass graft; I48.91 Unspecified atrial fibrillation; N40.0 Benign prostatic hyperplasia without lower urinary tract symptoms; K21.9 Gastro-esophageal reflux disease without esophagitis; F32.A Depression, unspecified; F41.9 Anxiety disorder, unspecified; E78.5 Hyperlipidemia, unspecified; D50.9 Iron deficiency anemia, unspecified; K57.30 Diverticulosis of large intestine without perforation or abscess without bleeding; N20.0 Calculus of kidney; Z89.611 Acquired absence of right leg above knee; K76.0 Fatty (change of) liver, not elsewhere classified; K40.20 Bilateral inguinal hernia, without obstruction or gangrene, not specified as recurrent; K80.20 Calculus of gallbladder without cholecystitis without obstruction; Z79.01 Long term (current) use of anticoagulants; Z79.899 Other long term (current) drug therapy; Z79.82 Long term (current) use of aspirin

== ENCOUNTER 2021-10-17 12:33 | Inpatient (IN) | payer MEDICARE, OTHER ==
[~2021-10-17] VITALS: Ht 180.3 cm; Wt 82.8 kg
[~2021-10-17 12:33] MED LIST changes: +ACET-683 PO; +ASPI81CH2 PO; +FERR1TAB8 PO; +FOLI1TAB11 PO; +LIDO5TD TD; +METF-839 PO; +MIRA1POW3 PO; +SENN-52 PO
[2021-10-17 16:00] VITALS: BP 136/74
[2021-10-17] MEDS ORDERED: MIRALAX *UNIT DOSE* 17GM PACKET PO PRN (16:00)
[2021-10-17] MEDS ORDERED: GLUCOSE 4GM CHEW TABLET PO PRN (16:00)
[2021-10-17] MEDS: REMEDY PHYTOPLEX Z-GUARD PASTE 113GM TUBE (FROM STOREROOM PRODUCT) TOP SCH ×2 (16:00→20:55)
[2021-10-17] MEDS ORDERED: DEXTROSE 50% 50 ML SYRINGE IV PRN (16:00)
[2021-10-17] MEDS ORDERED: GLUCAGON INJ 1MG VIAL SC PRN (16:00)
[2021-10-17] MEDS: SUCRALFATE 1 GM TAB PO SCH ×2 (17:13→20:55)
[2021-10-17] MEDS: HumaLOG INSULIN (NovoLOG) PER UNIT SC SCH ×2 (17:14→20:53)
[2021-10-17 20:00] VITALS: BP 133/65
[2021-10-17] MEDS: ACETAMINOPHEN 500 MG TAB PO SCH (20:52)
[2021-10-17] MEDS: ASPIRIN 81MG ENTERIC TABLET PO SCH (20:52)
[2021-10-17] MEDS: GABAPENTIN 300 MG CAP PO SCH (20:52)
[2021-10-17] MEDS: METOPROLOL TART 25 MG TABLET PO SCH (20:53)
[2021-10-17] MEDS: glipiZIDE (GLUCOTROL) 5 MG TAB PO SCH (20:53)
[2021-10-17] MEDS: **NOTE PATIENT COMMENT** MISC XX SCH (20:55)
[2021-10-17] MEDS: DOCUSATE SODIUM 100MG CAPSULE PO SCH (20:55)
[2021-10-18 06:00] VITALS: BP 101/60
[2021-10-18 08:11] LABS: HEMATOCRIT 28.4 % (42.0-52.0); HEMOGLOBIN 8.9 g/dl (13.5-17.5); MEAN CORPUSCULAR HGB CONC 31.3 g/dl (32.0-36.5); MEAN CORPUSCULAR VOLUME 95.6 fl (80.0-96.0); PLATELET COUNT, AUTOMATED 250 10^3/uL (150-450); RED BLOOD COUNT 2.97 10^6/uL (4.30-6.10); WHITE BLOOD COUNT 4.9 10^3/uL (4.0-10.0)
[2021-10-18] MEDS: TAMSULOSIN 0.4 MG CAP PO SCH (08:29)
[2021-10-18] MEDS: ATORVASTATIN 20 MG TAB PO SCH (08:29)
[2021-10-18] MEDS: DOCUSATE SODIUM 100MG CAPSULE PO SCH ×2 (08:29→20:13)
[2021-10-18] MEDS: DULoxetine 30MG CAPSULE (CYMBALTA) PO SCH (08:29)
[2021-10-18] MEDS: glipiZIDE (GLUCOTROL) 5 MG TAB PO SCH ×2 (08:29→20:12)
[2021-10-18] MEDS: PANTOPRAZOLE 40MG TAB (PROTONIX) PO SCH (08:29)
[2021-10-18] MEDS: FOLIC ACID 1 MG TAB PO SCH (08:29)
[2021-10-18] MEDS: FERROUS SULFATE 325MG TAB PO SCH (08:30)
[2021-10-18] MEDS: SUCRALFATE 1 GM TAB PO SCH ×3 (08:30→20:12)
[2021-10-18] MEDS: GABAPENTIN 100 MG CAP PO SCH (08:30)
[2021-10-18] MEDS: ACETAMINOPHEN 500 MG TAB PO SCH ×2 (08:30→20:10)
[2021-10-18] MEDS: HumaLOG INSULIN (NovoLOG) PER UNIT SC SCH ×4 (08:30→20:13)
[2021-10-18] MEDS: LEVEMIR (INSULIN DETEMIR) 1 UNITS/0.01ML SC SCH (08:31)
[2021-10-18] MEDS: LIDOCAINE 5% (LIDODERM) PATCH TD SCH (08:31)
[2021-10-18] MEDS: REMEDY PHYTOPLEX Z-GUARD PASTE 113GM TUBE (FROM STOREROOM PRODUCT) TOP SCH ×3 (08:31→20:13)
[2021-10-18] MEDS: METOPROLOL TART 25 MG TABLET PO SCH ×2 (08:32→20:12)
[2021-10-18] MEDS: MIRALAX *UNIT DOSE* 17GM PACKET PO SCH (08:32)
[2021-10-18 08:35] LABS: ALBUMIN 2.7 GM/DL (3.2-5.2); ALT/SGPT 21 U/L (12-78); BILIRUBIN,TOTAL 0.8 MG/DL (0.2-1.0); BLOOD UREA NITROGEN 29 MG/DL (7-18); CALCIUM LEVEL 8.3 MG/DL (8.8-10.2); CARBON DIOXIDE LEVEL 28 MEQ/L (21-32); CHLORIDE LEVEL 104 MEQ/L (98-107); CREATININE FOR GFR 1.03 MG/DL (0.70-1.30); GLOMERULAR FILTRATION RATE > 60.0 (>35); GLUCOSE, FASTING 189 MG/DL (70-100); POTASSIUM SERUM 4.4 MEQ/L (3.5-5.1); SODIUM LEVEL 137 MEQ/L (136-145); TOTAL PROTEIN 6.6 GM/DL (6.4-8.2)
[2021-10-18 09:03] LABS: ANISOCYTOSIS 1+; ATYPICAL LYMPH 1 % (0-5); EOSINOPHILS 2 % (0-3); LYMPHOCYTES 21 % (16-44); MONOCYTES 11 % (0-5); NEUTROPHILS 64 % (28-66); OVALOCYTES 1+; PLATELET ESTIMATE NORMAL (NORMAL)
[2021-10-18 14:00] VITALS: BP 112/58
[2021-10-18 19:39] VITALS: BP 131/68
[2021-10-18] MEDS: GABAPENTIN 300 MG CAP PO SCH (20:10)
[2021-10-18] MEDS: ASPIRIN 81MG ENTERIC TABLET PO SCH (20:10)
[2021-10-18] MEDS: **NOTE PATIENT COMMENT** MISC XX SCH (20:14)
[2021-10-19 06:02] VITALS: BP 117/61
[2021-10-19 07:31] LABS: HEMATOCRIT 26.2 % (42.0-52.0); HEMOGLOBIN 8.2 g/dl (13.5-17.5); MEAN CORPUSCULAR HEMOGLOBIN 29.8 pg (27.0-33.0); MEAN CORPUSCULAR HGB CONC 31.3 g/dl (32.0-36.5); MEAN CORPUSCULAR VOLUME 95.3 fl (80.0-96.0); PLATELET COUNT, AUTOMATED 250 10^3/uL (150-450); RED BLOOD COUNT 2.75 10^6/uL (4.30-6.10); WHITE BLOOD COUNT 4.1 10^3/uL (4.0-10.0)
[2021-10-19 07:51] LABS: BLOOD UREA NITROGEN 28 MG/DL (7-18); CALCIUM LEVEL 8.3 MG/DL (8.8-10.2); CARBON DIOXIDE LEVEL 27 MEQ/L (21-32); CHLORIDE LEVEL 105 MEQ/L (98-107); CREATININE FOR GFR 0.98 MG/DL (0.70-1.30); GLOMERULAR FILTRATION RATE > 60.0 (>35); GLUCOSE, FASTING 187 MG/DL (70-100); POTASSIUM SERUM 4.5 MEQ/L (3.5-5.1); SODIUM LEVEL 139 MEQ/L (136-145)
[2021-10-19 07:59] LABS: EOSINOPHILS 1 % (0-3); LYMPHOCYTES 21 % (16-44); MONOCYTES 12 % (0-5); NEUTROPHILS 66 % (28-66); PLATELET ESTIMATE NORMAL (NORMAL)
[2021-10-19 08:00] LABS: ANISOCYTOSIS 1+; OVALOCYTES 1+; POIKILOCYTOSIS 1+
[2021-10-19] MEDS: LEVEMIR (INSULIN DETEMIR) 1 UNITS/0.01ML SC SCH (08:43)
[2021-10-19] MEDS: GABAPENTIN 100 MG CAP PO SCH (08:44)
[2021-10-19] MEDS: MIRALAX *UNIT DOSE* 17GM PACKET PO SCH (08:44)
[2021-10-19] MEDS: ATORVASTATIN 20 MG TAB PO SCH (08:44)
[2021-10-19] MEDS: HumaLOG INSULIN (NovoLOG) PER UNIT SC SCH ×4 (08:44→20:06)
[2021-10-19] MEDS: DOCUSATE SODIUM 100MG CAPSULE PO SCH ×2 (08:45→20:06)
[2021-10-19] MEDS: PANTOPRAZOLE 40MG TAB (PROTONIX) PO SCH (08:45)
[2021-10-19] MEDS: DULoxetine 30MG CAPSULE (CYMBALTA) PO SCH (08:45)
[2021-10-19] MEDS: glipiZIDE (GLUCOTROL) 5 MG TAB PO SCH ×2 (08:45→20:22)
[2021-10-19] MEDS: TAMSULOSIN 0.4 MG CAP PO SCH (08:45)
[2021-10-19] MEDS: FOLIC ACID 1 MG TAB PO SCH (08:45)
[2021-10-19] MEDS: SUCRALFATE 1 GM TAB PO SCH ×3 (08:45→20:22)
[2021-10-19] MEDS: METOPROLOL TART 25 MG TABLET PO SCH ×2 (08:46→20:23)
[2021-10-19] MEDS: ACETAMINOPHEN 500 MG TAB PO SCH ×2 (08:47→20:24)
[2021-10-19] MEDS: REMEDY PHYTOPLEX Z-GUARD PASTE 113GM TUBE (FROM STOREROOM PRODUCT) TOP SCH ×3 (08:47→20:06)
[2021-10-19] MEDS: LIDOCAINE 5% (LIDODERM) PATCH TD SCH (08:47)
[2021-10-19 14:00] VITALS: BP 114/62
[2021-10-19 20:00] VITALS: BP 159/79
[2021-10-19] MEDS: ASPIRIN 81MG ENTERIC TABLET PO SCH (20:22)
[2021-10-19] MEDS: GABAPENTIN 300 MG CAP PO SCH (20:23)
[2021-10-19] MEDS: **NOTE PATIENT COMMENT** MISC XX SCH (20:25)
[2021-10-20 06:00] VITALS: BP 149/86
[2021-10-20] MEDS: glipiZIDE (GLUCOTROL) 5 MG TAB PO SCH ×2 (08:01→20:19)
[2021-10-20] MEDS: DULoxetine 30MG CAPSULE (CYMBALTA) PO SCH (08:02)
[2021-10-20] MEDS: DOCUSATE SODIUM 100MG CAPSULE PO SCH ×2 (08:02→19:25)
[2021-10-20] MEDS: HumaLOG INSULIN (NovoLOG) PER UNIT SC SCH ×4 (08:02→20:21)
[2021-10-20] MEDS: SUCRALFATE 1 GM TAB PO SCH ×3 (08:02→20:18)
[2021-10-20] MEDS: METOPROLOL TART 25 MG TABLET PO SCH ×2 (08:03→20:19)
[2021-10-20] MEDS: TAMSULOSIN 0.4 MG CAP PO SCH (08:03)
[2021-10-20] MEDS: FERROUS SULFATE 325MG TAB PO SCH (08:03)
[2021-10-20] MEDS: FOLIC ACID 1 MG TAB PO SCH (08:03)
[2021-10-20] MEDS: ATORVASTATIN 20 MG TAB PO SCH (08:03)
[2021-10-20] MEDS: MIRALAX *UNIT DOSE* 17GM PACKET PO SCH (08:04)
[2021-10-20] MEDS: GABAPENTIN 100 MG CAP PO SCH (08:04)
[2021-10-20] MEDS: PANTOPRAZOLE 40MG TAB (PROTONIX) PO SCH (08:04)
[2021-10-20] MEDS: ACETAMINOPHEN 500 MG TAB PO SCH ×2 (08:05→20:20)
[2021-10-20] MEDS: LEVEMIR (INSULIN DETEMIR) 1 UNITS/0.01ML SC SCH (08:05)
[2021-10-20] MEDS: LIDOCAINE 5% (LIDODERM) PATCH TD SCH (08:05)
[2021-10-20] MEDS: REMEDY PHYTOPLEX Z-GUARD PASTE 113GM TUBE (FROM STOREROOM PRODUCT) TOP SCH ×3 (08:06→20:21)
[2021-10-20 14:00] VITALS: BP 101/52
[2021-10-20 20:00] VITALS: BP 141/67
[2021-10-20] MEDS: ASPIRIN 81MG ENTERIC TABLET PO SCH (20:18)
[2021-10-20] MEDS: GABAPENTIN 300 MG CAP PO SCH (20:19)
[2021-10-20] MEDS: **NOTE PATIENT COMMENT** MISC XX SCH (20:22)
[2021-10-21 06:00] VITALS: BP 117/66
[2021-10-21] MEDS: REMEDY PHYTOPLEX Z-GUARD PASTE 113GM TUBE (FROM STOREROOM PRODUCT) TOP SCH ×3 (09:00→20:41)
[2021-10-21] MEDS: ATORVASTATIN 20 MG TAB PO SCH (09:14)
[2021-10-21] MEDS: MIRALAX *UNIT DOSE* 17GM PACKET PO SCH (09:14)
[2021-10-21] MEDS: DULoxetine 30MG CAPSULE (CYMBALTA) PO SCH (09:14)
[2021-10-21] MEDS: TAMSULOSIN 0.4 MG CAP PO SCH (09:14)
[2021-10-21] MEDS: FOLIC ACID 1 MG TAB PO SCH (09:14)
[2021-10-21] MEDS: METOPROLOL TART 25 MG TABLET PO SCH ×2 (09:14→20:39)
[2021-10-21] MEDS: GABAPENTIN 100 MG CAP PO SCH (09:15)
[2021-10-21] MEDS: PANTOPRAZOLE 40MG TAB (PROTONIX) PO SCH (09:15)
[2021-10-21] MEDS: DOCUSATE SODIUM 100MG CAPSULE PO SCH ×2 (09:18→20:40)
[2021-10-21] MEDS: ACETAMINOPHEN 500 MG TAB PO SCH ×2 (09:18→20:40)
[2021-10-21] MEDS: SUCRALFATE 1 GM TAB PO SCH ×3 (09:18→20:39)
[2021-10-21] MEDS: HumaLOG INSULIN (NovoLOG) PER UNIT SC SCH ×4 (09:20→20:40)
[2021-10-21] MEDS: LIDOCAINE 5% (LIDODERM) PATCH TD SCH (09:21)
[2021-10-21] MEDS: LEVEMIR (INSULIN DETEMIR) 1 UNITS/0.01ML SC SCH (09:21)
[2021-10-21] MEDS: glipiZIDE (GLUCOTROL) 5 MG TAB PO SCH ×2 (09:29→20:39)
[2021-10-21 14:00] VITALS: BP 116/63
[2021-10-21 20:00] VITALS: BP 128/63
[2021-10-21] MEDS: GABAPENTIN 300 MG CAP PO SCH (20:39)
[2021-10-21] MEDS: ASPIRIN 81MG ENTERIC TABLET PO SCH (20:39)
[2021-10-21] MEDS: **NOTE PATIENT COMMENT** MISC XX SCH (20:41)
[2021-10-22 06:00] VITALS: BP 132/71
[2021-10-22 07:03] LABS: HEMOGLOBIN 8.2 g/dl (13.5-17.5); MEAN CORPUSCULAR HEMOGLOBIN 29.5 pg (27.0-33.0); MEAN CORPUSCULAR HGB CONC 30.4 g/dl (32.0-36.5); MEAN CORPUSCULAR VOLUME 97.1 fl (80.0-96.0); PLATELET COUNT, AUTOMATED 234 10^3/uL (150-450); RED BLOOD COUNT 2.78 10^6/uL (4.30-6.10); WHITE BLOOD COUNT 5.7 10^3/uL (4.0-10.0)
[2021-10-22 07:35] LABS: ANISOCYTOSIS 2+; BASOPHILS 1 % (0-1); EOSINOPHILS 1 % (0-3); LYMPHOCYTES 20 % (16-44); MONOCYTES 6 % (0-5); NEUTROPHILS 72 % (28-66); PLATELET ESTIMATE NORMAL (NORMAL)
[2021-10-22 07:48] LABS: BLOOD UREA NITROGEN 28 MG/DL (7-18); CALCIUM LEVEL 8.3 MG/DL (8.8-10.2); CARBON DIOXIDE LEVEL 26 MEQ/L (21-32); CHLORIDE LEVEL 105 MEQ/L (98-107); CREATININE FOR GFR 1.01 MG/DL (0.70-1.30); GLOMERULAR FILTRATION RATE > 60.0 (>35); GLUCOSE, FASTING 196 MG/DL (70-100); POTASSIUM SERUM 4.7 MEQ/L (3.5-5.1); SODIUM LEVEL 138 MEQ/L (136-145)
[2021-10-22] MEDS: LEVEMIR (INSULIN DETEMIR) 1 UNITS/0.01ML SC SCH (08:10)
[2021-10-22] MEDS: HumaLOG INSULIN (NovoLOG) PER UNIT SC SCH ×4 (08:10→20:52)
[2021-10-22] MEDS: LIDOCAINE 5% (LIDODERM) PATCH TD SCH (08:12)
[2021-10-22] MEDS: GABAPENTIN 100 MG CAP PO SCH (08:13)
[2021-10-22] MEDS: MIRALAX *UNIT DOSE* 17GM PACKET PO SCH (08:13)
[2021-10-22] MEDS: ACETAMINOPHEN 500 MG TAB PO SCH ×2 (08:13→20:41)
[2021-10-22] MEDS: ATORVASTATIN 20 MG TAB PO SCH (08:13)
[2021-10-22] MEDS: TAMSULOSIN 0.4 MG CAP PO SCH (08:14)
[2021-10-22] MEDS: DULoxetine 30MG CAPSULE (CYMBALTA) PO SCH (08:14)
[2021-10-22] MEDS: SUCRALFATE 1 GM TAB PO SCH ×3 (08:14→20:40)
[2021-10-22] MEDS: glipiZIDE (GLUCOTROL) 5 MG TAB PO SCH ×2 (08:14→20:43)
[2021-10-22] MEDS: DOCUSATE SODIUM 100MG CAPSULE PO SCH ×2 (08:14→20:44)
[2021-10-22] MEDS: METOPROLOL TART 25 MG TABLET PO SCH ×2 (08:14→20:40)
[2021-10-22] MEDS: REMEDY PHYTOPLEX Z-GUARD PASTE 113GM TUBE (FROM STOREROOM PRODUCT) TOP SCH ×3 (08:15→20:44)
[2021-10-22] MEDS: FERROUS SULFATE 325MG TAB PO SCH (08:15)
[2021-10-22] MEDS: FOLIC ACID 1 MG TAB PO SCH (08:15)
[2021-10-22] MEDS: PANTOPRAZOLE 40MG TAB (PROTONIX) PO SCH (08:15)
[2021-10-22 14:00] VITALS: BP 120/57
[2021-10-22 20:00] VITALS: BP 111/54
[2021-10-22] MEDS: GABAPENTIN 300 MG CAP PO SCH (20:40)
[2021-10-22] MEDS: ASPIRIN 81MG ENTERIC TABLET PO SCH (20:43)
[2021-10-22] MEDS: **NOTE PATIENT COMMENT** MISC XX SCH (20:45)
[2021-10-23 06:00] VITALS: BP 140/74
[2021-10-23] MEDS: HumaLOG INSULIN (NovoLOG) PER UNIT SC SCH ×4 (07:56→20:37)
[2021-10-23] MEDS: LEVEMIR (INSULIN DETEMIR) 1 UNITS/0.01ML SC SCH (07:57)
[2021-10-23] MEDS: LIDOCAINE 5% (LIDODERM) PATCH TD SCH (07:57)
[2021-10-23] MEDS: DOCUSATE SODIUM 100MG CAPSULE PO SCH ×2 (07:57→20:37)
[2021-10-23] MEDS: FOLIC ACID 1 MG TAB PO SCH (07:58)
[2021-10-23] MEDS: ATORVASTATIN 20 MG TAB PO SCH (07:58)
[2021-10-23] MEDS: SUCRALFATE 1 GM TAB PO SCH ×3 (07:58→20:37)
[2021-10-23] MEDS: DULoxetine 30MG CAPSULE (CYMBALTA) PO SCH (07:58)
[2021-10-23] MEDS: GABAPENTIN 100 MG CAP PO SCH (07:58)
[2021-10-23] MEDS: TAMSULOSIN 0.4 MG CAP PO SCH (07:58)
[2021-10-23] MEDS: ACETAMINOPHEN 500 MG TAB PO SCH ×2 (07:58→20:36)
[2021-10-23] MEDS: METOPROLOL TART 25 MG TABLET PO SCH (07:59)
[2021-10-23] MEDS: glipiZIDE (GLUCOTROL) 5 MG TAB PO SCH ×2 (07:59→20:36)
[2021-10-23] MEDS: MIRALAX *UNIT DOSE* 17GM PACKET PO SCH (08:00)
[2021-10-23] MEDS: PANTOPRAZOLE 40MG TAB (PROTONIX) PO SCH (08:00)
[2021-10-23] MEDS: REMEDY PHYTOPLEX Z-GUARD PASTE 113GM TUBE (FROM STOREROOM PRODUCT) TOP SCH ×3 (08:00→20:38)
[2021-10-23 10:45] VITALS: BP 97/51
[2021-10-23 13:52] VITALS: BP 121/61
[2021-10-23 14:00] VITALS: BP 121/61
[2021-10-23 16:30] VITALS: BP 176/83
[2021-10-23 20:20] VITALS: BP 134/70
[2021-10-23] MEDS: ASPIRIN 81MG ENTERIC TABLET PO SCH (20:36)
[2021-10-23] MEDS: GABAPENTIN 300 MG CAP PO SCH (20:37)
[2021-10-23] MEDS: METOPROLOL TART 12.5 MG PER 1/2 TAB PO SCH (20:37)
[2021-10-23] MEDS: **NOTE PATIENT COMMENT** MISC XX SCH (20:39)
[2021-10-24 06:00] VITALS: BP 151/85
[2021-10-24 07:01] LABS: HEMATOCRIT 27.4 % (42.0-52.0); HEMOGLOBIN 8.3 g/dl (13.5-17.5); MEAN CORPUSCULAR HEMOGLOBIN 29.7 pg (27.0-33.0); MEAN CORPUSCULAR HGB CONC 30.3 g/dl (32.0-36.5); MEAN CORPUSCULAR VOLUME 98.2 fl (80.0-96.0); PLATELET COUNT, AUTOMATED 233 10^3/uL (150-450); RED BLOOD COUNT 2.79 10^6/uL (4.30-6.10); WHITE BLOOD COUNT 3.8 10^3/uL (4.0-10.0)
[2021-10-24 07:24] LABS: BLOOD UREA NITROGEN 25 MG/DL (7-18); CALCIUM LEVEL 8.5 MG/DL (8.8-10.2); CARBON DIOXIDE LEVEL 29 MEQ/L (21-32); CHLORIDE LEVEL 104 MEQ/L (98-107); CREATININE FOR GFR 1.04 MG/DL (0.70-1.30); GLOMERULAR FILTRATION RATE > 60.0 (>35); GLUCOSE, FASTING 169 MG/DL (70-100); POTASSIUM SERUM 4.5 MEQ/L (3.5-5.1); SODIUM LEVEL 137 MEQ/L (136-145)
[2021-10-24 08:08] LABS: ANISOCYTOSIS 1+; BASOPHILS 1 % (0-1); EOSINOPHILS 5 % (0-3); LYMPHOCYTES 25 % (16-44); MONOCYTES 10 % (0-5); NEUTROPHILS 58 % (28-66); PLATELET ESTIMATE NORMAL (NORMAL)
[2021-10-24 08:10] LABS: OVALOCYTES 1+
[2021-10-24 08:11] LABS: POIKILOCYTOSIS 1+
[2021-10-24] MEDS: PANTOPRAZOLE 40MG TAB (PROTONIX) PO SCH (08:31)
[2021-10-24] MEDS: HumaLOG INSULIN (NovoLOG) PER UNIT SC SCH ×4 (08:31→21:00)
[2021-10-24] MEDS: LEVEMIR (INSULIN DETEMIR) 1 UNITS/0.01ML SC SCH (08:31)
[2021-10-24] MEDS: SUCRALFATE 1 GM TAB PO SCH ×3 (08:31→21:14)
[2021-10-24] MEDS: FOLIC ACID 1 MG TAB PO SCH (08:32)
[2021-10-24] MEDS: ATORVASTATIN 20 MG TAB PO SCH (08:32)
[2021-10-24] MEDS: DULoxetine 30MG CAPSULE (CYMBALTA) PO SCH (08:32)
[2021-10-24] MEDS: glipiZIDE (GLUCOTROL) 5 MG TAB PO SCH ×2 (08:32→21:16)
[2021-10-24] MEDS: DOCUSATE SODIUM 100MG CAPSULE PO SCH ×2 (08:32→21:00)
[2021-10-24] MEDS: FERROUS SULFATE 325MG TAB PO SCH (08:32)
[2021-10-24] MEDS: ACETAMINOPHEN 500 MG TAB PO SCH ×2 (08:33→21:00)
[2021-10-24] MEDS: METOPROLOL TART 12.5 MG PER 1/2 TAB PO SCH ×2 (08:33→21:00)
[2021-10-24] MEDS: MIRALAX *UNIT DOSE* 17GM PACKET PO SCH (08:34)
[2021-10-24] MEDS: LIDOCAINE 5% (LIDODERM) PATCH TD SCH (08:34)
[2021-10-24] MEDS: REMEDY PHYTOPLEX Z-GUARD PASTE 113GM TUBE (FROM STOREROOM PRODUCT) TOP SCH ×3 (08:35→21:18)
[2021-10-24] MEDS: POLYVINYL ALCOHOL OPHTH SOLN 15 ML(LIQUITEARS) OU SCH ×4 (13:00→21:18)
[2021-10-24 14:00] VITALS: BP 120/60
[2021-10-24 20:00] VITALS: BP 118/60
[2021-10-24] MEDS: **NOTE PATIENT COMMENT** MISC XX SCH (21:14)
[2021-10-24] MEDS: TAMSULOSIN 0.4 MG CAP PO SCH (21:15)
[2021-10-24] MEDS: GABAPENTIN 300 MG CAP PO SCH (21:15)
[2021-10-24] MEDS: ASPIRIN 81MG ENTERIC TABLET PO SCH (21:16)
[2021-10-25 06:00] VITALS: BP 119/71
[2021-10-25] MEDS: PANTOPRAZOLE 40MG TAB (PROTONIX) PO SCH (09:00)
[2021-10-25] MEDS: SUCRALFATE 1 GM TAB PO SCH ×3 (09:00→20:55)
[2021-10-25] MEDS: ATORVASTATIN 20 MG TAB PO SCH (09:00)
[2021-10-25] MEDS: DOCUSATE SODIUM 100MG CAPSULE PO SCH ×2 (09:00→20:54)
[2021-10-25] MEDS: FOLIC ACID 1 MG TAB PO SCH (09:01)
[2021-10-25] MEDS: glipiZIDE (GLUCOTROL) 5 MG TAB PO SCH ×2 (09:01→20:54)
[2021-10-25] MEDS: METOPROLOL TART 12.5 MG PER 1/2 TAB PO SCH ×2 (09:01→20:55)
[2021-10-25] MEDS: DULoxetine 30MG CAPSULE (CYMBALTA) PO SCH (09:01)
[2021-10-25] MEDS: LIDOCAINE 5% (LIDODERM) PATCH TD SCH (09:02)
[2021-10-25] MEDS: REMEDY PHYTOPLEX Z-GUARD PASTE 113GM TUBE (FROM STOREROOM PRODUCT) TOP SCH ×3 (09:02→20:56)
[2021-10-25] MEDS: POLYVINYL ALCOHOL OPHTH SOLN 15 ML(LIQUITEARS) OU SCH ×4 (09:02→20:56)
[2021-10-25] MEDS: MIRALAX *UNIT DOSE* 17GM PACKET PO SCH (09:03)
[2021-10-25] MEDS: ACETAMINOPHEN 500 MG TAB PO SCH ×2 (09:03→20:54)
[2021-10-25] MEDS: LEVEMIR (INSULIN DETEMIR) 1 UNITS/0.01ML SC SCH (09:04)
[2021-10-25] MEDS: HumaLOG INSULIN (NovoLOG) PER UNIT SC SCH ×4 (09:04→20:47)
[2021-10-25 14:00] VITALS: BP 105/57
[2021-10-25 19:38] VITALS: BP 146/67
[2021-10-25 19:45] VITALS: BP 152/83
[2021-10-25] MEDS: ASPIRIN 81MG ENTERIC TABLET PO SCH (20:55)
[2021-10-25] MEDS: TAMSULOSIN 0.4 MG CAP PO SCH (20:55)
[2021-10-25] MEDS: GABAPENTIN 300 MG CAP PO SCH (20:55)
[2021-10-25] MEDS: **NOTE PATIENT COMMENT** MISC XX SCH (20:56)
[2021-10-26 05:32] VITALS: BP 127/73
[2021-10-26 07:30] LABS: HEMATOCRIT 26.2 % (42.0-52.0); HEMOGLOBIN 8.1 g/dl (13.5-17.5); MEAN CORPUSCULAR HEMOGLOBIN 29.9 pg (27.0-33.0); MEAN CORPUSCULAR HGB CONC 30.9 g/dl (32.0-36.5); MEAN CORPUSCULAR VOLUME 96.7 fl (80.0-96.0); PLATELET COUNT, AUTOMATED 215 10^3/uL (150-450); RED BLOOD COUNT 2.71 10^6/uL (4.30-6.10); WHITE BLOOD COUNT 3.7 10^3/uL (4.0-10.0)
[2021-10-26 07:52] LABS: BLOOD UREA NITROGEN 25 MG/DL (7-18); CALCIUM LEVEL 8.4 MG/DL (8.8-10.2); CARBON DIOXIDE LEVEL 26 MEQ/L (21-32); CHLORIDE LEVEL 106 MEQ/L (98-107); CREATININE FOR GFR 1.03 MG/DL (0.70-1.30); GLOMERULAR FILTRATION RATE > 60.0 (>35); GLUCOSE, FASTING 162 MG/DL (70-100); POTASSIUM SERUM 4.4 MEQ/L (3.5-5.1); SODIUM LEVEL 140 MEQ/L (136-145)
[2021-10-26 08:04] LABS: ANISOCYTOSIS 1+; ATYPICAL LYMPH 5 % (0-5); BASOPHILS 1 % (0-1); GIANT PLATELETS 1+; LYMPHOCYTES 27 % (16-44); MONOCYTES 10 % (0-5); NEUTROPHILS 56 % (28-66); PLATELET ESTIMATE NORMAL (NORMAL); POIKILOCYTOSIS 1+; POLYCHROMASIA 1+
[2021-10-26 08:05] LABS: OVALOCYTES 1+
[2021-10-26] MEDS: LEVEMIR (INSULIN DETEMIR) 1 UNITS/0.01ML SC SCH (08:59)
[2021-10-26] MEDS: HumaLOG INSULIN (NovoLOG) PER UNIT SC SCH ×4 (08:59→21:00)
[2021-10-26] MEDS: DOCUSATE SODIUM 100MG CAPSULE PO SCH ×2 (09:00→20:58)
[2021-10-26] MEDS: glipiZIDE (GLUCOTROL) 5 MG TAB PO SCH ×2 (09:00→20:59)
[2021-10-26] MEDS: MIRALAX *UNIT DOSE* 17GM PACKET PO SCH (09:00)
[2021-10-26] MEDS: SUCRALFATE 1 GM TAB PO SCH ×3 (09:00→20:58)
[2021-10-26] MEDS: ACETAMINOPHEN 500 MG TAB PO SCH ×2 (09:01→21:00)
[2021-10-26] MEDS: PANTOPRAZOLE 40MG TAB (PROTONIX) PO SCH (09:01)
[2021-10-26] MEDS: DULoxetine 30MG CAPSULE (CYMBALTA) PO SCH (09:01)
[2021-10-26] MEDS: ATORVASTATIN 20 MG TAB PO SCH (09:01)
[2021-10-26] MEDS: FOLIC ACID 1 MG TAB PO SCH (09:01)
[2021-10-26] MEDS: METOPROLOL TART 12.5 MG PER 1/2 TAB PO SCH ×2 (09:02→20:59)
[2021-10-26] MEDS: LIDOCAINE 5% (LIDODERM) PATCH TD SCH (09:03)
[2021-10-26] MEDS: POLYVINYL ALCOHOL OPHTH SOLN 15 ML(LIQUITEARS) OU SCH ×4 (09:04→21:00)
[2021-10-26] MEDS: REMEDY PHYTOPLEX Z-GUARD PASTE 113GM TUBE (FROM STOREROOM PRODUCT) TOP SCH ×3 (09:04→21:01)
[2021-10-26] MEDS: FERROUS SULFATE 325MG TAB PO SCH (09:11)
[2021-10-26 14:00] VITALS: BP 135/65
[2021-10-26 15:41] VITALS: BP 135/65
[2021-10-26 20:00] VITALS: BP 126/68
[2021-10-26] MEDS: TAMSULOSIN 0.4 MG CAP PO SCH (20:58)
[2021-10-26] MEDS: ASPIRIN 81MG ENTERIC TABLET PO SCH (20:58)
[2021-10-26] MEDS: GABAPENTIN 300 MG CAP PO SCH (20:59)
[2021-10-26] MEDS: **NOTE PATIENT COMMENT** MISC XX SCH (21:01)
[2021-10-27 06:00] VITALS: BP 127/67
[2021-10-27] MEDS: glipiZIDE (GLUCOTROL) 5 MG TAB PO SCH ×2 (08:31→21:12)
[2021-10-27] MEDS: LIDOCAINE 5% (LIDODERM) PATCH TD SCH (08:32)
[2021-10-27] MEDS: LEVEMIR (INSULIN DETEMIR) 1 UNITS/0.01ML SC SCH (08:32)
[2021-10-27] MEDS: DULoxetine 30MG CAPSULE (CYMBALTA) PO SCH (08:32)
[2021-10-27] MEDS: FOLIC ACID 1 MG TAB PO SCH (08:32)
[2021-10-27] MEDS: DOCUSATE SODIUM 100MG CAPSULE PO SCH ×2 (08:32→21:11)
[2021-10-27] MEDS: SUCRALFATE 1 GM TAB PO SCH ×3 (08:32→21:11)
[2021-10-27] MEDS: HumaLOG INSULIN (NovoLOG) PER UNIT SC SCH ×4 (08:32→21:00)
[2021-10-27] MEDS: ATORVASTATIN 20 MG TAB PO SCH (08:33)
[2021-10-27] MEDS: ACETAMINOPHEN 500 MG TAB PO SCH ×2 (08:33→21:11)
[2021-10-27] MEDS: MIRALAX *UNIT DOSE* 17GM PACKET PO SCH (08:33)
[2021-10-27] MEDS: METOPROLOL TART 12.5 MG PER 1/2 TAB PO SCH ×2 (08:33→21:11)
[2021-10-27] MEDS: PANTOPRAZOLE 40MG TAB (PROTONIX) PO SCH (08:33)
[2021-10-27] MEDS: REMEDY PHYTOPLEX Z-GUARD PASTE 113GM TUBE (FROM STOREROOM PRODUCT) TOP SCH ×3 (08:34→21:15)
[2021-10-27] MEDS: POLYVINYL ALCOHOL OPHTH SOLN 15 ML(LIQUITEARS) OU SCH ×4 (08:34→21:15)
[2021-10-27 14:05] VITALS: BP 119/59
[2021-10-27 20:00] VITALS: BP 146/67
[2021-10-27] MEDS: ASPIRIN 81MG ENTERIC TABLET PO SCH (21:10)
[2021-10-27] MEDS: TAMSULOSIN 0.4 MG CAP PO SCH (21:11)
[2021-10-27] MEDS: GABAPENTIN 300 MG CAP PO SCH (21:12)
[2021-10-27] MEDS: **NOTE PATIENT COMMENT** MISC XX SCH (21:16)
[2021-10-28 06:00] VITALS: BP 137/76
[2021-10-28] MEDS: HumaLOG INSULIN (NovoLOG) PER UNIT SC SCH ×4 (07:44→20:35)
[2021-10-28] MEDS: LEVEMIR (INSULIN DETEMIR) 1 UNITS/0.01ML SC SCH (07:44)
[2021-10-28] MEDS: ATORVASTATIN 20 MG TAB PO SCH (07:45)
[2021-10-28] MEDS: glipiZIDE (GLUCOTROL) 5 MG TAB PO SCH ×2 (07:45→20:33)
[2021-10-28] MEDS: PANTOPRAZOLE 40MG TAB (PROTONIX) PO SCH (07:45)
[2021-10-28] MEDS: SUCRALFATE 1 GM TAB PO SCH ×3 (07:45→20:34)
[2021-10-28] MEDS: DULoxetine 30MG CAPSULE (CYMBALTA) PO SCH (07:45)
[2021-10-28] MEDS: FERROUS SULFATE 325MG TAB PO SCH (07:46)
[2021-10-28] MEDS: ACETAMINOPHEN 500 MG TAB PO SCH ×2 (07:46→20:34)
[2021-10-28] MEDS: DOCUSATE SODIUM 100MG CAPSULE PO SCH ×2 (07:46→20:32)
[2021-10-28] MEDS: FOLIC ACID 1 MG TAB PO SCH (07:46)
[2021-10-28] MEDS: LIDOCAINE 5% (LIDODERM) PATCH TD SCH (07:47)
[2021-10-28] MEDS: METOPROLOL TART 12.5 MG PER 1/2 TAB PO SCH ×2 (07:47→20:34)
[2021-10-28] MEDS: MIRALAX *UNIT DOSE* 17GM PACKET PO SCH (07:47)
[2021-10-28] MEDS: POLYVINYL ALCOHOL OPHTH SOLN 15 ML(LIQUITEARS) OU SCH ×4 (07:48→20:36)
[2021-10-28] MEDS: REMEDY PHYTOPLEX Z-GUARD PASTE 113GM TUBE (FROM STOREROOM PRODUCT) TOP SCH ×3 (07:48→20:39)
[2021-10-28 14:00] VITALS: BP 133/75
[2021-10-28 20:00] VITALS: BP 129/72
[2021-10-28] MEDS: TAMSULOSIN 0.4 MG CAP PO SCH (20:32)
[2021-10-28] MEDS: ASPIRIN 81MG ENTERIC TABLET PO SCH (20:33)
[2021-10-28] MEDS: GABAPENTIN 300 MG CAP PO SCH (20:33)
[2021-10-28] MEDS: **NOTE PATIENT COMMENT** MISC XX SCH (20:39)
[2021-10-29 06:00] VITALS: BP 132/73
[2021-10-29 06:14] LABS: HEMATOCRIT 26.5 % (42.0-52.0); HEMOGLOBIN 8.1 g/dl (13.5-17.5); MEAN CORPUSCULAR HEMOGLOBIN 29.9 pg (27.0-33.0); MEAN CORPUSCULAR HGB CONC 30.6 g/dl (32.0-36.5); MEAN CORPUSCULAR VOLUME 97.8 fl (80.0-96.0); PLATELET COUNT, AUTOMATED 207 10^3/uL (150-450); RED BLOOD COUNT 2.71 10^6/uL (4.30-6.10); WHITE BLOOD COUNT 3.7 10^3/uL (4.0-10.0)
[2021-10-29 06:31] LABS: BLOOD UREA NITROGEN 23 MG/DL (7-18); CALCIUM LEVEL 8.5 MG/DL (8.8-10.2); CARBON DIOXIDE LEVEL 27 MEQ/L (21-32); CHLORIDE LEVEL 106 MEQ/L (98-107); CREATININE FOR GFR 1.03 MG/DL (0.70-1.30); GLOMERULAR FILTRATION RATE > 60.0 (>35); GLUCOSE, FASTING 119 MG/DL (70-100); POTASSIUM SERUM 4.4 MEQ/L (3.5-5.1); SODIUM LEVEL 138 MEQ/L (136-145)
[2021-10-29 06:48] LABS: BASOPHILS 1 % (0-1); EOSINOPHILS 5 % (0-3); LYMPHOCYTES 28 % (16-44); MONOCYTES 5 % (0-5); NEUTROPHILS 61 % (28-66); PLATELET ESTIMATE NORMAL (NORMAL)
[2021-10-29] MEDS: MIRALAX *UNIT DOSE* 17GM PACKET PO SCH (09:00)
[2021-10-29] MEDS: HumaLOG INSULIN (NovoLOG) PER UNIT SC SCH ×4 (09:59→20:22)
[2021-10-29] MEDS: METOPROLOL TART 12.5 MG PER 1/2 TAB PO SCH ×2 (09:59→20:21)
[2021-10-29] MEDS: DOCUSATE SODIUM 100MG CAPSULE PO SCH ×2 (09:59→20:21)
[2021-10-29] MEDS: ACETAMINOPHEN 500 MG TAB PO SCH ×2 (10:01→20:21)
[2021-10-29] MEDS: glipiZIDE (GLUCOTROL) 5 MG TAB PO SCH ×2 (10:01→20:21)
[2021-10-29] MEDS: PANTOPRAZOLE 40MG TAB (PROTONIX) PO SCH (10:01)
[2021-10-29] MEDS: DULoxetine 30MG CAPSULE (CYMBALTA) PO SCH (10:02)
[2021-10-29] MEDS: FOLIC ACID 1 MG TAB PO SCH (10:02)
[2021-10-29] MEDS: SUCRALFATE 1 GM TAB PO SCH ×3 (10:02→20:21)
[2021-10-29] MEDS: ATORVASTATIN 20 MG TAB PO SCH (10:02)
[2021-10-29] MEDS: REMEDY PHYTOPLEX Z-GUARD PASTE 113GM TUBE (FROM STOREROOM PRODUCT) TOP SCH ×3 (10:12→20:26)
[2021-10-29] MEDS: POLYVINYL ALCOHOL OPHTH SOLN 15 ML(LIQUITEARS) OU SCH ×4 (10:12→20:22)
[2021-10-29] MEDS: LEVEMIR (INSULIN DETEMIR) 1 UNITS/0.01ML SC SCH (10:12)
[2021-10-29] MEDS: LIDOCAINE 5% (LIDODERM) PATCH TD SCH (10:15)
[2021-10-29 14:00] VITALS: BP 136/75
[2021-10-29] MEDS: LORATADINE 10 MG TAB PO SCH (17:30)
[2021-10-29 20:00] VITALS: BP 133/69
[2021-10-29] MEDS: ASPIRIN 81MG ENTERIC TABLET PO SCH (20:21)
[2021-10-29] MEDS: TAMSULOSIN 0.4 MG CAP PO SCH (20:21)
[2021-10-29] MEDS: GABAPENTIN 300 MG CAP PO SCH (20:21)
[2021-10-29] MEDS: FLUTICASONE PROP 0.05% NASAL SPRAY 16 GM (FLONASE) NARES SCH (20:24)
[2021-10-29] MEDS: **NOTE PATIENT COMMENT** MISC XX SCH (20:25)
[2021-10-29] MEDS: SODIUM CHLORIDE NASAL 0.65% SPRAY BTL (OCEAN) SCH (20:25)
[2021-10-30 06:00] VITALS: BP 114/73
[2021-10-30] MEDS: FLUTICASONE PROP 0.05% NASAL SPRAY 16 GM (FLONASE) NARES SCH ×2 (09:00→20:35)
[2021-10-30] MEDS: MIRALAX *UNIT DOSE* 17GM PACKET PO SCH (09:00)
[2021-10-30] MEDS: METOPROLOL TART 12.5 MG PER 1/2 TAB PO SCH ×2 (09:00→20:33)
[2021-10-30] MEDS: REMEDY PHYTOPLEX Z-GUARD PASTE 113GM TUBE (FROM STOREROOM PRODUCT) TOP SCH ×3 (09:00→20:34)
[2021-10-30] MEDS: SODIUM CHLORIDE NASAL 0.65% SPRAY BTL (OCEAN) SCH ×3 (09:00→20:35)
[2021-10-30] MEDS: LEVEMIR (INSULIN DETEMIR) 1 UNITS/0.01ML SC SCH (10:25)
[2021-10-30] MEDS: HumaLOG INSULIN (NovoLOG) PER UNIT SC SCH ×4 (10:26→19:43)
[2021-10-30] MEDS: LORATADINE 10 MG TAB PO SCH (10:29)
[2021-10-30] MEDS: glipiZIDE (GLUCOTROL) 5 MG TAB PO SCH ×2 (10:30→20:33)
[2021-10-30] MEDS: FOLIC ACID 1 MG TAB PO SCH (10:30)
[2021-10-30] MEDS: PANTOPRAZOLE 40MG TAB (PROTONIX) PO SCH (10:30)
[2021-10-30] MEDS: SUCRALFATE 1 GM TAB PO SCH ×3 (10:30→20:32)
[2021-10-30] MEDS: FERROUS SULFATE 325MG TAB PO SCH (10:30)
[2021-10-30] MEDS: LIDOCAINE 5% (LIDODERM) PATCH TD SCH (10:38)
[2021-10-30] MEDS: ATORVASTATIN 20 MG TAB PO SCH (10:38)
[2021-10-30] MEDS: DULoxetine 30MG CAPSULE (CYMBALTA) PO SCH (10:38)
[2021-10-30] MEDS: DOCUSATE SODIUM 100MG CAPSULE PO SCH ×2 (10:39→20:33)
[2021-10-30] MEDS: ACETAMINOPHEN 500 MG TAB PO SCH ×2 (10:39→20:34)
[2021-10-30] MEDS: POLYVINYL ALCOHOL OPHTH SOLN 15 ML(LIQUITEARS) OU SCH ×4 (10:41→20:34)
[2021-10-30 14:00] VITALS: BP 131/65
[2021-10-30 19:28] VITALS: BP 155/75
[2021-10-30] MEDS: GABAPENTIN 300 MG CAP PO SCH (20:32)
[2021-10-30] MEDS: TAMSULOSIN 0.4 MG CAP PO SCH (20:33)
[2021-10-30] MEDS: ASPIRIN 81MG ENTERIC TABLET PO SCH (20:33)
[2021-10-30] MEDS: **NOTE PATIENT COMMENT** MISC XX SCH (20:34)
[2021-10-31 05:14] VITALS: BP 106/54
[2021-10-31] MEDS: LEVEMIR (INSULIN DETEMIR) 1 UNITS/0.01ML SC SCH (07:48)
[2021-10-31] MEDS: glipiZIDE (GLUCOTROL) 5 MG TAB PO SCH ×2 (07:48→21:40)
[2021-10-31] MEDS: PANTOPRAZOLE 40MG TAB (PROTONIX) PO SCH (07:49)
[2021-10-31] MEDS: LORATADINE 10 MG TAB PO SCH (07:49)
[2021-10-31] MEDS: DULoxetine 30MG CAPSULE (CYMBALTA) PO SCH (07:49)
[2021-10-31] MEDS: SUCRALFATE 1 GM TAB PO SCH ×3 (07:49→21:38)
[2021-10-31] MEDS: FOLIC ACID 1 MG TAB PO SCH (07:49)
[2021-10-31] MEDS: HumaLOG INSULIN (NovoLOG) PER UNIT SC SCH ×4 (07:49→21:00)
[2021-10-31] MEDS: METOPROLOL TART 12.5 MG PER 1/2 TAB PO SCH ×2 (07:50→21:00)
[2021-10-31] MEDS: ATORVASTATIN 20 MG TAB PO SCH (07:50)
[2021-10-31] MEDS: MIRALAX *UNIT DOSE* 17GM PACKET PO SCH (07:51)
[2021-10-31] MEDS: SODIUM CHLORIDE NASAL 0.65% SPRAY BTL (OCEAN) SCH ×3 (07:52→21:00)
[2021-10-31] MEDS: FLUTICASONE PROP 0.05% NASAL SPRAY 16 GM (FLONASE) NARES SCH ×2 (07:52→21:00)
[2021-10-31] MEDS: ACETAMINOPHEN 500 MG TAB PO SCH ×2 (07:52→21:38)
[2021-10-31] MEDS: DOCUSATE SODIUM 100MG CAPSULE PO SCH ×2 (07:52→21:38)
[2021-10-31] MEDS: REMEDY PHYTOPLEX Z-GUARD PASTE 113GM TUBE (FROM STOREROOM PRODUCT) TOP SCH ×3 (07:53→21:00)
[2021-10-31] MEDS: LIDOCAINE 5% (LIDODERM) PATCH TD SCH (07:53)
[2021-10-31] MEDS: POLYVINYL ALCOHOL OPHTH SOLN 15 ML(LIQUITEARS) OU SCH ×4 (07:54→21:42)
[2021-10-31] MEDS: NYSTATIN 100,000 UNITS/GM TOPICAL PWD 15 GM TOP SCH ×3 (12:16→21:00)
[2021-10-31 14:00] VITALS: BP 132/62
[2021-10-31 20:00] VITALS: BP 109/56
[2021-10-31] MEDS: **NOTE PATIENT COMMENT** MISC XX SCH (21:00)
[2021-10-31] MEDS: GABAPENTIN 300 MG CAP PO SCH (21:38)
[2021-10-31] MEDS: TAMSULOSIN 0.4 MG CAP PO SCH (21:38)
[2021-10-31] MEDS: ASPIRIN 81MG ENTERIC TABLET PO SCH (21:38)
[2021-11-01 05:15] VITALS: BP 142/72
[2021-11-01] MEDS: glipiZIDE (GLUCOTROL) 5 MG TAB PO SCH (07:30)
[2021-11-01] MEDS: HumaLOG INSULIN (NovoLOG) PER UNIT SC SCH ×2 (07:30→11:59)
[2021-11-01] MEDS: FERROUS SULFATE 325MG TAB PO SCH (07:42)
[2021-11-01] MEDS: LORATADINE 10 MG TAB PO SCH (07:42)
[2021-11-01] MEDS: PANTOPRAZOLE 40MG TAB (PROTONIX) PO SCH (07:43)
[2021-11-01] MEDS: SUCRALFATE 1 GM TAB PO SCH (07:43)
[2021-11-01] MEDS: DULoxetine 30MG CAPSULE (CYMBALTA) PO SCH (07:43)
[2021-11-01] MEDS: ATORVASTATIN 20 MG TAB PO SCH (07:43)
[2021-11-01] MEDS: LIDOCAINE 5% (LIDODERM) PATCH TD SCH (07:43)
[2021-11-01] MEDS: FOLIC ACID 1 MG TAB PO SCH (07:43)
[2021-11-01] MEDS: MIRALAX *UNIT DOSE* 17GM PACKET PO SCH (07:44)
[2021-11-01] MEDS: FLUTICASONE PROP 0.05% NASAL SPRAY 16 GM (FLONASE) NARES SCH (07:44)
[2021-11-01] MEDS: SODIUM CHLORIDE NASAL 0.65% SPRAY BTL (OCEAN) SCH (07:44)
[2021-11-01] MEDS: ACETAMINOPHEN 500 MG TAB PO SCH (07:44)
[2021-11-01] MEDS: DOCUSATE SODIUM 100MG CAPSULE PO SCH (07:44)
[2021-11-01] MEDS: POLYVINYL ALCOHOL OPHTH SOLN 15 ML(LIQUITEARS) OU SCH ×2 (07:45→11:59)
[2021-11-01] MEDS: NYSTATIN 100,000 UNITS/GM TOPICAL PWD 15 GM TOP SCH (07:45)
[2021-11-01] MEDS: REMEDY PHYTOPLEX Z-GUARD PASTE 113GM TUBE (FROM STOREROOM PRODUCT) TOP SCH (07:45)
[2021-11-01 07:46] VITALS: BP 145/69
[2021-11-01] MEDS: METOPROLOL TART 12.5 MG PER 1/2 TAB PO SCH (07:46)
[2021-11-01] MEDS ORDERED: TRAD5TAB PO (10:03)
[2021-11-01] MEDS ORDERED: GLIP5TAB8 PO ×2 (10:03→10:04)
[2021-11-01] MEDS ORDERED: PANT40TA29 PO (10:04)
[2021-11-01] MEDS ORDERED: DULO30CA9 PO (10:04)
[2021-11-01] MEDS ORDERED: ASPI81CH2 PO (10:04)
[2021-11-01] MEDS ORDERED: ATOR40TA75 PO (10:04)
[2021-11-01] MEDS ORDERED: GABA-1171 PO (10:04)
[2021-11-01] MEDS ORDERED: FLOM0.4C39 PO (10:04)
[2021-11-01] MEDS ORDERED: SUCR1TAB56 PO (10:04)
[2021-11-01] MEDS ORDERED: METO1TAB87 PO (10:04)
[2021-11-01] MEDS ORDERED: FOLI1TAB11 PO (10:04)
== END 2021-11-01 13:45 | disposition home health service (06) | DRG 552 ==
LOC: M PM&R 16:18
PROVIDERS: ADMIT Physical Medicine & Rehabilitation; ATTEND Physical Medicine & Rehabilitation
DX: M48.061 Spinal stenosis, lumbar region without neurogenic claudication (principal); I48.91 Unspecified atrial fibrillation; I10 Essential (primary) hypertension; I25.10 Atherosclerotic heart disease of native coronary artery without angina pectoris; N40.0 Benign prostatic hyperplasia without lower urinary tract symptoms; D50.0 Iron deficiency anemia secondary to blood loss (chronic); K21.9 Gastro-esophageal reflux disease without esophagitis; Z89.611 Acquired absence of right leg above knee; Z79.01 Long term (current) use of anticoagulants; Z74.09 Other reduced mobility; E11.42 Type 2 diabetes mellitus with diabetic polyneuropathy; K59.00 Constipation, unspecified; Z79.82 Long term (current) use of aspirin; Z79.899 Other long term (current) drug therapy; Z79.84 Long term (current) use of oral hypoglycemic drugs; Z95.5 Presence of coronary angioplasty implant and graft; E78.5 Hyperlipidemia, unspecified; K44.9 Diaphragmatic hernia without obstruction or gangrene

== ENCOUNTER → 2022-05-06 | Outpatient (CLI) | payer MEDICARE, OTHER | LOC: M SOG 09:47 | PROVIDERS: ATTEND Orthopaedic Surgery Hand Surgery | DX: M79.641 Pain in right hand (principal); M79.642 Pain in left hand ==

== ENCOUNTER → 2022-06-17 | Outpatient (CLI) | payer MEDICARE, OTHER ==
[2022-06-17 13:42] LABS: HEMATOCRIT 38.2 % (42.0-52.0); MEAN CORPUSCULAR HEMOGLOBIN 30.4 pg (27.0-33.0); MEAN CORPUSCULAR HGB CONC 31.4 g/dl (32.0-36.5); MEAN CORPUSCULAR VOLUME 96.7 fl (80.0-96.0); PLATELET COUNT, AUTOMATED 178 10^3/uL (150-450); RED BLOOD COUNT 3.95 10^6/uL (4.30-6.10); WHITE BLOOD COUNT 5.9 10^3/uL (4.0-10.0)
[2022-06-17 14:38] LABS: ANISOCYTOSIS 1+; ATYPICAL LYMPH 5 % (0-5); EOSINOPHILS 3 % (0-3); LYMPHOCYTES 14 % (16-44); METAMYELOCYTES 1 % (0-0); MONOCYTES 5 % (0-5); NEUTROPHILS 71 % (28-66); OVALOCYTES 1+; PLASMA CELL 1 % (0-0); PLATELET ESTIMATE NORMAL (NORMAL); POIKILOCYTOSIS 1+
[2022-06-17 14:54] LABS: ALT/SGPT 23 U/L (12-78); BLOOD UREA NITROGEN 28 MG/DL (7-18); CALCIUM LEVEL 9.2 MG/DL (8.8-10.2); CARBON DIOXIDE LEVEL 26 MEQ/L (21-32); CHLORIDE LEVEL 103 MEQ/L (98-107); CREATININE FOR GFR 1.14 MG/DL (0.70-1.30); GLOMERULAR FILTRATION RATE > 60.0 (>35); GLUCOSE, FASTING 170 MG/DL (70-100); HEPATITIS C VIRUS ABY INDEX 0.1 INDEX (<0.8); POTASSIUM SERUM 4.4 MEQ/L (3.5-5.1); SODIUM LEVEL 135 MEQ/L (136-145)
[2022-06-17 14:55] LABS: ALBUMIN 3.5 GM/DL (3.2-5.2); HEPATITIS B CORE ANTIBODY IGM NEGATIVE (NEGATIVE); HEPATITIS B SURFACE ANTIGEN NEGATIVE (NEGATIVE); HIV 1&2 SCREEN CENTAUR NEGATIVE (NEGATIVE); TOTAL PROTEIN 7.9 GM/DL (6.4-8.2)
== END ==
LOC: M LAB 12:02
PROVIDERS: ATTEND Nurse Practitioner Family
DX: L12.0 Bullous pemphigoid (principal)

== ENCOUNTER → 2022-08-13 | Outpatient (CLI) | payer MEDICARE, OTHER ==
[2022-08-13 16:08] LABS: HEMATOCRIT 35.5 % (42.0-52.0); HEMOGLOBIN 11.3 g/dl (13.5-17.5); MEAN CORPUSCULAR HGB CONC 31.8 g/dl (32.0-36.5); MEAN CORPUSCULAR VOLUME 97.5 fl (80.0-96.0); PLATELET COUNT, AUTOMATED 191 10^3/uL (150-450); RED BLOOD COUNT 3.64 10^6/uL (4.30-6.10); WHITE BLOOD COUNT 4.3 10^3/uL (4.0-10.0)
[2022-08-13 19:40] LABS: BASOPHILS 1 % (0-1); EOSINOPHILS 1 % (0-3); LYMPHOCYTES 20 % (16-44); MONOCYTES 14 % (0-5); NEUTROPHILS 64 % (28-66); PLATELET ESTIMATE NORMAL (NORMAL)
== END ==
LOC: M LAB 15:05
PROVIDERS: ATTEND Nurse Practitioner Family
DX: L12.0 Bullous pemphigoid (principal)

== ENCOUNTER → 2022-12-17 | Outpatient (RCR) | payer MEDICARE, OTHER | LOC: M OT 13:16 | PROVIDERS: ATTEND Orthopaedic Surgery Hand Surgery | DX: R06.00 Dyspnea, unspecified (principal); M25.542 Pain in joints of left hand; M25.541 Pain in joints of right hand ==

== ENCOUNTER 2023-01-07 13:00 | Outpatient (RCR) | payer MEDICARE, OTHER | END 2023-01-17 | LOC: M OT 13:00 | PROVIDERS: ATTEND Orthopaedic Surgery Hand Surgery | DX: M24.542 Contracture, left hand (principal); M24.541 Contracture, right hand ==

== ENCOUNTER → 2023-02-26 | Outpatient (CLI) | payer MEDICARE, OTHER ==
[~2023-02-26] MED LIST changes: +COLA100C5 PO; +DULO1CAP6 PO; +OMEG10002 PO
[2023-02-26 13:10] LABS: HEMATOCRIT 34.2 % (42.0-52.0); HEMOGLOBIN 10.6 g/dl (13.5-17.5); MEAN CORPUSCULAR HEMOGLOBIN 31.4 pg (27.0-33.0); MEAN CORPUSCULAR VOLUME 101.2 fl (80.0-96.0); PLATELET COUNT, AUTOMATED 224 10^3/uL (150-450); RED BLOOD COUNT 3.38 10^6/uL (4.30-6.10); WHITE BLOOD COUNT 5.9 10^3/uL (4.0-10.0)
[2023-02-26 13:19] LABS: BLOOD UREA NITROGEN 22 MG/DL (9-23); CALCIUM LEVEL 8.6 MG/DL (8.3-10.6); CARBON DIOXIDE LEVEL 27 MMOL/L (20-31); CHLORIDE LEVEL 105 MMOL/L (98-107); CREATININE FOR GFR 0.94 MG/DL (0.70-1.30); GLOMERULAR FILTRATION RATE > 60.0 (>35); GLUCOSE, FASTING 133 MG/DL (74-106); POTASSIUM SERUM 4.1 MMOL/L (3.5-5.1); SODIUM LEVEL 135 MMOL/L (136-145)
[2023-02-26 13:27] LABS: ATYPICAL LYMPH 5 % (0-5); EOSINOPHILS 1 % (0-3); LYMPHOCYTES 14 % (16-44); MONOCYTES 10 % (0-5); NEUTROPHILS 70 % (28-66)
[2023-02-26 13:28] LABS: ANISOCYTOSIS 1+
[2023-02-26 13:29] LABS: OVALOCYTES 1+
[2023-02-26 13:31] LABS: PLATELET ESTIMATE NORMAL (NORMAL); POLYCHROMASIA 1+
== END ==
LOC: M LAB 11:28
PROVIDERS: ATTEND Student in an Organized Health Care Education/Training Program
DX: E11.42 Type 2 diabetes mellitus with diabetic polyneuropathy (principal)

== ENCOUNTER 2023-03-07 06:11 | Day surgery (SDC) | payer MEDICARE, OTHER ==
[~2023-03-07] VITALS: Ht 180.3 cm; Wt 83.9 kg
[2023-03-07] MEDS ORDERED: LR 1,000 ML IV SCH ×2 (06:35→08:50)
[2023-03-07] MEDS ORDERED: LIDOCAINE W/EPINEPHRINE 1% 20ML VIAL As Ordered ONE (07:17)
[2023-03-07] MEDS ORDERED: ceFAZolin 2 GM/D5W 50 ML IV BAG As Ordered ONE (07:50)
[2023-03-07] MEDS ORDERED: propofoL 200 MG/20 ML VIAL As Ordered ONE (07:54)
[2023-03-07] MEDS ORDERED: ONDANSETRON 4MG 2ML VIAL As Ordered ONE (07:54)
[2023-03-07] MEDS ORDERED: fentaNYL 100 MCG/2 ML INJECTION As Ordered ONE (07:54)
[2023-03-07] MEDS ORDERED: KETOROLAC 60MG 2ML VIAL As Ordered ONE (07:54)
[2023-03-07] MEDS ORDERED: LIDOCAINE 2% 100MG/5ML SDV (FOR ANES.) As Ordered ONE (07:54)
[2023-03-07] MEDS ORDERED: ACETAMINOPHEN 1000MG 100ML IV BAG As Ordered ONE (07:54)
[2023-03-07] MEDS ORDERED: DESFLURANE 240 ML INHALANT As Ordered ONE (08:15)
[2023-03-07] MEDS ORDERED: ONDANSETRON 4MG 2ML VIAL IV PRN (08:50)
[2023-03-07] MEDS ORDERED: fentaNYL 100 MCG/2 ML INJECTION IV PRN (08:50)
[2023-03-07] MEDS ORDERED: oxyCODONE 5MG TAB PO PRN (08:50)
[2023-03-07] MEDS ORDERED: HYDROMORPHONE HCL 0.5 MG/ 0.5 ML SYRINGE IV PRN (08:50)
[2023-03-07 10:13] VITALS: BP 130/68
== END 2023-03-07 10:18 | disposition home or self-care (01) ==
LOC: M SDC 06:11
PROVIDERS: ATTEND Orthopaedic Surgery Hand Surgery
DX: G56.22 Lesion of ulnar nerve, left upper limb (principal); I10 Essential (primary) hypertension; E11.9 Type 2 diabetes mellitus without complications; Z95.0 Presence of cardiac pacemaker; I48.91 Unspecified atrial fibrillation; I25.10 Atherosclerotic heart disease of native coronary artery without angina pectoris; K44.9 Diaphragmatic hernia without obstruction or gangrene; K21.9 Gastro-esophageal reflux disease without esophagitis; D64.9 Anemia, unspecified; Z95.1 Presence of aortocoronary bypass graft; F41.9 Anxiety disorder, unspecified; F32.A Depression, unspecified; Z79.82 Long term (current) use of aspirin; Z79.899 Other long term (current) drug therapy; Z79.84 Long term (current) use of oral hypoglycemic drugs
CPT/HCPCS: 29999; J0131; J0690; J1100; J1885; J2405; J3010

== ENCOUNTER 2025-08-17 18:02 | Inpatient (IN) | payer MEDICARE, OTHER ==
[~2025-08-17] VITALS: Ht 177.8 cm; Wt 78.2 kg
[~2025-08-17 18:02] MED LIST changes: +ACET650T61 PO; +AMOX875T2 PO; +ASPI81CH33 PO; -FLOM0.4C39 PO; +GABA-1172; -GABA-282; +GLIP5TAB17 PO; -GLIP5TAB8 PO; +MAGN400T33 PO; +METO25TA PO; -MIRA1POW3 PO; +MIRA33506 PO; +OCUVCAP PO; +POTA-136 PO; +TAMS-18 PO; +TORS20TA2 PO
[2025-08-17 18:52] LABS: PLATELET COUNT, AUTOMATED 106 10^3/uL (150-450)
[2025-08-17 19:21] LABS: C REACTIVE PROTEIN QUANTITATIV 5.26 MG/DL (<1.0)
[2025-08-17 19:23] LABS: ALT/SGPT 104.0 U/L (7.0-40); AST/SGOT 126.0 U/L (<34); CALCIUM LEVEL 8.5 MG/DL (8.3-10.6); CARBON DIOXIDE LEVEL 24.0 MMOL/L (20-31); CHLORIDE LEVEL 94.0 MMOL/L (98-107); CREATININE FOR GFR 0.95 MG/DL (0.70-1.30); GLOMERULAR FILTRATION RATE 76.5 (>35); POTASSIUM SERUM 3.8 MMOL/L (3.5-5.1); SODIUM LEVEL 129.0 MMOL/L (136-145)
[2025-08-17 19:26] LABS: INR 1.06; LYMPHOCYTES 4 % (16-44); MONOCYTES 2 % (0-5); NEUTROPHILS 91 % (28-66)
[2025-08-17 19:28] LABS: PLATELET ESTIMATE DECREASED (NORMAL)
[2025-08-17] MEDS: ACETAMINOPHEN *IV* 1,000 MG in IV 1 EA IV ONE (19:36)
[2025-08-17 20:11] LABS: KETONE, URINE AUTO RFX NEGATIVE (NEGATIVE); LEUKOCYTE ESTERASE UR AUTO RFX NEGATIVE (NEGATIVE); MUCUS, URINE RFX SMALL (NEGATIVE); NITRITE, URINE AUTO RFX NEGATIVE (NEGATIVE); RBC, URINE AUTO RFX 34 /HPF (0-3); SQUAM EPITHELIAL CELL UR AURFX 0 /HPF (0-6); WBC, URINE AUTO RFX 1 /HPF (0-3)
[2025-08-17] MEDS ORDERED: ISOVUE-370 76% 100 ML VIAL As Ordered ONE (21:21)
[2025-08-18] MEDS: PIPERACILLIN/TAZOBACTAM SOD 4.5 GM in DEXTROSE 5% (D5W) ADV/MINI-BAG 50 ML IV ONE (01:14)
[2025-08-18] MEDS ORDERED: DEXTROSE 50% 50 ML SYRINGE IV PRN (01:20)
[2025-08-18] MEDS ORDERED: ACETAMINOPHEN 325 MG TAB PO PRN (01:20)
[2025-08-18] MEDS ORDERED: GLUCOSE 4 GM CHEW PO PRN (01:20)
[2025-08-18] MEDS ORDERED: GLUCAGON INJ 1 MG VIAL SC PRN (01:20)
[2025-08-18] MEDS ORDERED: MAALOX 30 ML SUSP *UDC PO PRN (01:20)
[2025-08-18] MEDS: LEVALBUTEROL 1.25 MG 0.5ML CONCENTRATE NEB INH SCH (02:01)
[2025-08-18] MEDS: NS (Normal Saline) 0.9% 1,000 ML IV SCH (02:12)
[2025-08-18] MEDS: DOXYCYCLINE HYCLATE 100 MG TABLET PO SCH (06:30)
[2025-08-18 07:47] LABS: PLATELET COUNT, AUTOMATED 92 10^3/uL (150-450)
[2025-08-18 07:50] LABS: ALT/SGPT 106.0 U/L (7.0-40); AST/SGOT 113.0 U/L (<34); CALCIUM LEVEL 8.4 MG/DL (8.3-10.6); CARBON DIOXIDE LEVEL 23.0 MMOL/L (20-31); CHLORIDE LEVEL 98.0 MMOL/L (98-107); CREATININE FOR GFR 0.85 MG/DL (0.70-1.30); GLOMERULAR FILTRATION RATE 83.1 (>35); MAGNESIUM LEVEL 1.6 MG/DL (1.8-2.4); POTASSIUM SERUM 3.8 MMOL/L (3.5-5.1); SODIUM LEVEL 133.0 MMOL/L (136-145)
[2025-08-18] MEDS: INSULIN LISPRO (NovoLOG) PER UNIT SC SCH (08:07)
[2025-08-18] MEDS: DOCUSATE SODIUM 100 MG CAPSULE PO SCH (08:39)
[2025-08-18] MEDS: MOM 30 ML SUSPENSION UDC PO PRN (08:46)
[2025-08-18] MEDS: ENOXAPARIN 40 MG/0.4 ML SYRINGE (J1650 PER 10MG) SC SCH (08:47)
[2025-08-18] MEDS: PIPERACILLIN/TAZOBACTAM SOD 4.5 GM in DEXTROSE 5% (D5W) ADV/MINI-BAG 50 ML IV SCH (08:53)
[2025-08-18] MEDS ORDERED: cefTRIAXone SOD 1 GM in DEXTROSE 5% (D5W) ADV/MINI-BAG 50 ML IV SCH (09:00)
[2025-08-18] MEDS ORDERED: ECOT81TA5 PO (09:48)
[2025-08-18] MEDS ORDERED: TOBROPO OD (09:48)
[2025-08-18] MEDS ORDERED: TORS20TA2 PO (09:48)
[2025-08-18] MEDS ORDERED: ACET-1515 PO (09:48)
[2025-08-18] MEDS ORDERED: POTA-150 PO (09:48)
[2025-08-18] MEDS ORDERED: HOME MED LIST COMPLETE! XX SCH (10:10)
[2025-08-18] MEDS: GABAPENTIN 100 MG CAP PO SCH ×2 (11:16→20:23)
[2025-08-18] MEDS: ATORVASTATIN 20 MG TAB PO SCH (11:16)
[2025-08-18] MEDS: MAG SULF 1GM/100ML (MAG RUN) 1 GM in IV 1 EA IV SCH (11:16)
[2025-08-18] MEDS: POTASSIUM CHLORIDE 10MEQ SR TABLET PO SCH (11:17)
[2025-08-18] MEDS: LR 1,000 ML IV SCH (13:02)
[2025-08-18 16:00] VITALS: BP 116/64; TEMP 98.7; O2SAT 96
[2025-08-18] MEDS: TOBRADEX OPHTH OINT 3.5 GM OD SCH (16:32)
[2025-08-18 19:58] VITALS: BP 106/53; TEMP 98.6; O2SAT 95
[2025-08-18] MEDS: ASPIRIN 81 MG ENTERIC TABLET PO SCH (20:23)
[2025-08-18] MEDS: SUCRALFATE 1 GM TAB PO SCH (20:23)
[2025-08-18 23:13] VITALS: BP 132/63; TEMP 98.7; O2SAT 91
[2025-08-19 04:33] VITALS: BP 119/61; TEMP 98.7; O2SAT 96
[2025-08-19 07:24] VITALS: BP 136/70; TEMP 98.6; O2SAT 95
[2025-08-19 08:18] LABS: BASO # 0.0 10^3/uL (0.0-0.2); BASO % 0.4 % (0.0-1.0); EOS # 0.0 10^3/uL (0.0-0.5); EOS % 0.4 % (0.0-3.0); LYMPH # 0.8 10^3/uL (1.5-5.0); LYMPH % 30.2 % (24.0-44.0); MONO # 0.4 10^3/uL (0.0-0.8); MONO % 17.5 % (2.0-8.0); NEUTROPHILS # 1.1 10^3/uL (1.5-8.5); NEUTROPHILS % 44.0 % (36.0-66.0)
[2025-08-19 08:20] LABS: PLATELET COUNT, AUTOMATED 70 10^3/uL (150-450)
[2025-08-19 08:52] LABS: CALCIUM LEVEL 7.3 MG/DL (8.3-10.6); CARBON DIOXIDE LEVEL 26.0 MMOL/L (20-31); CHLORIDE LEVEL 99.0 MMOL/L (98-107); CREATININE FOR GFR 0.92 MG/DL (0.70-1.30); GLOMERULAR FILTRATION RATE 79.5 (>35); POTASSIUM SERUM 4.0 MMOL/L (3.5-5.1); SODIUM LEVEL 132.0 MMOL/L (136-145)
[2025-08-19 11:32] VITALS: BP 108/55; TEMP 97.8; O2SAT 93
[2025-08-19 16:07] VITALS: BP 133/63; TEMP 99; O2SAT 98
[2025-08-19 19:58] VITALS: BP 122/59; TEMP 98; O2SAT 93
[2025-08-20] VITALS (7 sets, daily range): BP systolic 114–162; BP diastolic 58–79; TEMP 96.5–98.7; O2SAT 94–100
[2025-08-20 05:57] LABS: PLATELET COUNT, AUTOMATED 74 10^3/uL (150-450)
[2025-08-20 06:19] LABS: CALCIUM LEVEL 7.7 MG/DL (8.3-10.6); CARBON DIOXIDE LEVEL 25.0 MMOL/L (20-31); CHLORIDE LEVEL 100.0 MMOL/L (98-107); CREATININE FOR GFR 0.97 MG/DL (0.70-1.30); GLOMERULAR FILTRATION RATE 74.6 (>35); MAGNESIUM LEVEL 1.7 MG/DL (1.8-2.4); POTASSIUM SERUM 3.9 MMOL/L (3.5-5.1); SODIUM LEVEL 135.0 MMOL/L (136-145)
[2025-08-20 08:19] LABS: ALT/SGPT 79.0 U/L (7.0-40); AST/SGOT 62.0 U/L (<34)
[2025-08-20] MEDS: MAG SULF 1GM/100ML (MAG RUN) 1 GM in IV 1 EA IV SCH (10:56)
[2025-08-21 04:14] VITALS: BP 132/86; TEMP 97.7; O2SAT 94
[2025-08-21 05:23] LABS: PLATELET COUNT, AUTOMATED 97 10^3/uL (150-450)
[2025-08-21 05:43] LABS: CALCIUM LEVEL 7.8 MG/DL (8.3-10.6); CARBON DIOXIDE LEVEL 24.0 MMOL/L (20-31); CHLORIDE LEVEL 105.0 MMOL/L (98-107); CREATININE FOR GFR 0.96 MG/DL (0.70-1.30); GLOMERULAR FILTRATION RATE 75.6 (>35); POTASSIUM SERUM 3.8 MMOL/L (3.5-5.1); SODIUM LEVEL 140.0 MMOL/L (136-145)
[2025-08-21 07:19] VITALS: BP 145/72; TEMP 97.7; O2SAT 99
[2025-08-21 15:14] VITALS: BP 139/70; TEMP 97.6; O2SAT 97
[2025-08-21] MEDS ORDERED: METR-265 PO (16:12)
[2025-08-21] MEDS ORDERED: LEVO75TAB PO (16:12)
[2025-08-21 20:27] LABS: URINE STREP PNEUMONIAE ANTIGEN Not Detected (Not Detected)
== END 2025-08-21 17:06 | disposition home or self-care (01) | DRG 871 ==
LOC: M ED 18:02 → EDBD 18:02 → M ED INP 08-18 01:16 → M PCU 08-18 15:47
PROVIDERS: ADMIT Student in an Organized Health Care Education/Training Program; ATTEND Student in an Organized Health Care Education/Training Program
DX: A41.9 Sepsis, unspecified organism (principal); J18.9 Pneumonia, unspecified organism; D61.818 Other pancytopenia; K57.92 Diverticulitis of intestine, part unspecified, without perforation or abscess without bleeding; I48.92 Unspecified atrial flutter; Z95.1 Presence of aortocoronary bypass graft; I10 Essential (primary) hypertension; E11.40 Type 2 diabetes mellitus with diabetic neuropathy, unspecified; I25.10 Atherosclerotic heart disease of native coronary artery without angina pectoris; K21.9 Gastro-esophageal reflux disease without esophagitis; Z96.651 Presence of right artificial knee joint; Z89.511 Acquired absence of right leg below knee; Z79.82 Long term (current) use of aspirin; Z79.899 Other long term (current) drug therapy; I48.0 Paroxysmal atrial fibrillation; R74.01 Elevation of levels of liver transaminase levels

== ENCOUNTER → 2025-08-31 | Outpatient (CLI) | payer MEDICARE, OTHER ==
[~2025-08-31] MED LIST changes: +ACET-1515 PO; +LEVO75TAB PO; +METR-265 PO; +POTA-150 PO; +TOBROPO OD
[2025-08-31 15:12] LABS: PLATELET COUNT, AUTOMATED 301 10^3/uL (150-450)
[2025-08-31 17:27] LABS: EOSINOPHILS 3 % (0-3); LYMPHOCYTES 14 % (16-44); MONOCYTES 8 % (0-5); NEUTROPHILS 75 % (28-66)
[2025-08-31 17:29] LABS: PLATELET ESTIMATE NORMAL (NORMAL)
== END ==
LOC: M LAB 08-30 16:44
PROVIDERS: ATTEND Student in an Organized Health Care Education/Training Program
DX: D61.818 Other pancytopenia (principal)